=== PATIENT | male | born 1955 | race Caucasian/White ===

== ENCOUNTER 2016-05-25 11:30 | Emergency (ER) | payer MEDICARE, MEDICAID ==
[~2016-05-25] VITALS: Ht 185.4 cm; Wt 99.8 kg
[~2016-05-25 11:30] MED LIST: /LAMO20TA OR; /TIOT18INH INH; AMIT24CA5 PO; ARIC10TA OR; ARIC10TA PO; CALC1TAB30 PO; CLON0.5T PO; CLOR37TA PO; DILA100C PO; FLON0.05; FLUT1SPR2; HYDR25T PO; LAMO200T PO; LAMO25TA2 PO; LOTRCRE TOP; MIRA33504 PO; OYST500T58 OR; PARO30TA PO; PAXI40TA OR; PHEN30CA OR; PHEN32.4 PO; PHENOBARBITOL PO; QUET1TAB10 PO; RISP2TAB12 OR; RISP3TAB16 OR; SENN8.6T10 PO; SERO50TA PO; SIMV20TA2 PO; TRAZ100T4 PO; ZOCO5TAB OR
[2016-05-25 13:00] LABS: BASO % 0.6 % (0.0-1.0); EOS # 0.2 K/mm3 (0.0-0.50); EOS % 4.4 % (0.0-3.0); LARGE UNSTAINED CELL # 0.1 K/mm3 (0.0-0.4); LARGE UNSTAINED CELL % 1.8 % (0.0-4.0); LYMPH # 1.3 K/mm3 (1.5-4.5); LYMPH % 27.6 % (24.0-44.0); MEAN CORPUSCULAR HEMOGLOBIN 29.4 pg (27.0-33.0); MEAN CORPUSCULAR HGB CONC 32.8 g/dl (32.0-36.5); MEAN CORPUSCULAR VOLUME 89.8 fl (80.0-96.0); MONO # 0.4 K/mm3 (0.0-0.8); NEUTROPHILS # 2.8 K/mm3 (1.8-7.7); NEUTROPHILS % 57.7 % (36.0-66.0); PLATELET COUNT, AUTOMATED 162 k/mm3 (150-450); RED CELL DISTRIBUTION WIDTH 13.1 % (11.5-14.5); WHITE BLOOD COUNT 4.8 K/mm3 (4.0-10.0)
[2016-05-25] MEDS ORDERED: DULC10SU2 PR (14:04)
[2016-05-25] MEDS ORDERED: FLEEENE4 PR (14:04)
[2016-05-25] MEDS ORDERED: MILKSUS PO (14:04)
[2016-05-25] MEDS ORDERED: CLOR37TA PO (14:06)
[2016-05-25 14:32] LABS: ANION GAP 10 MEQ/L (8-16); BLOOD UREA NITROGEN 18 MG/DL (7-18); CARBON DIOXIDE LEVEL 27 MEQ/L (21-32); CHLORIDE LEVEL 102 MEQ/L (98-107); CREATININE FOR GFR 0.86 MG/DL (0.70-1.30); GLOMERULAR FILTRATION RATE > 60.0 (>56); GLUCOSE, FASTING 108 MG/DL (70-105); PHENOBARBITAL LEVEL 34.3 UG/ML (15.0-40.0); POTASSIUM SERUM 4.8 MEQ/L (3.5-5.1); SODIUM LEVEL 139 MEQ/L (136-145)
--- NOTE | 2016-05-25 16:41 | EDDOCDS ---
Physician Documentation [facility] Name: Hemanth Hunt Age: 60 yrs Sex: Male : 1955 Arrival Date: 05/25/2016 Time: 11:30 Bed 6 Private MD: Disposition: 05/25/16 16:16 Discharged to Home/Self Care. Impression: Syncope and collapse, Abnormal electrocardiogram [ECG] [EKG], Fracture of clavicle. - Condition is Stable. - Discharge Instructions: Clavicle Fracture, Syncope. - Medication Reconciliation, Local Pharmacy Hours form. - Follow up: Private Physician; When: 1 - 2 days; Reason: Recheck today's complaints. Follow up: [facility]; When: 4 - 5 days; Reason: Recheck today's complaints. - Problem is new. - Symptoms are unchanged. - Notes: Hemnath was seen for falls out of his wheelchair today. Bloodwork showed no acute findings. CT scan of the head, neck and face along with shunt Xrays and chest Xray showed no acute findings, but left shoulder Xray indicated possible left clavicle fracture. He may wear the sling for comfort, and may take Tylenol and/or Ibuprofen as needed for pain. He will need to see Orthopaedics for further evaluation this week - please see the number below, and call to make him an appointment. EKG of the heart initially showed some abnormalilities but this had resolved on recheck. He was seen by Dr. Estes of Internal Medicine who recommended he may return home. As he is feeling better he may return home. Call his primary doctor to arrange a recheck in the office this week as well, and return to the ED for any return of passing out, new or worse pain, not acting appropriately or any other concerns. Historical: - Allergies: Felbatol (Unknown); - Home Meds: 1. Amitiza 24 mcg oral cap daily 2. Aricept 10 mg Oral tab 1 tab once daily 3. Flonase 50 mcg/actuation Nasal spsn 2 sprays once daily 4. trazodone 200 mg Oral tab 1 tab HS 5. Klonopin 0.25 mg Oral TbDL 1 tab 2 times per day 6. Atarax 25 mg Oral tab 1 tab 4 times per day 7. Seroquel 350 mg Oral tab 1 tab 2 times per day 8. Lamictal 275mg Oral 2 times per day 9. Dilantin 100mg Oral 200 mg nightly 10. Lotrisone Topical 11. clorazepate dipotassium 3.75 mg oral tab 1 tab 2 times per day 12. Paxil 60 mg Oral once daily 13. phenobarbital 64.8 mg Oral tab 1 tab once daily 14. phenobarbital 97.2 mg Oral tab 1 tab HS 15. Calcium + Vitamin D Oral 500 mg three times a day 16. Senokot 8.6 mg Oral tab 2 tabs once daily 17. Dilantin Oral 100 mg daily 18. Zocor 20 mg Oral tab 1 tab once daily 19. Miralax 17 gram/dose Oral powd once daily 20. Dulcolax (bisacodyl) 10 mg Rectal supp - PMHx: COPD; Epilepsy; hydrocephalus; Mild MR; parieto-occipital tumor; pituitary tumor; Sleep Apnea w/ CPAP; - PSHx: Ventricular Shunt; - Social history: Smoking status: Patient states was never smoker of tobacco. No barriers to communication noted, Speaks appropriately for age. - Family history: Not pertinent. - : The pt / caregiver states he / she is not on anticoagulants. Home medication list is obtained from the patient. - Exposure Risk Screening:: None identified. Vital Signs: 05/25 11:44 BP 121 / 77 (auto/); rs3 11:44 Pulse Ox 90% ; rs3 11:48 BP 121 / 77 LA Sitting (auto/reg); Pulse 74; Resp 16; Temp 96.2; Pulse Ox 90% on R/A; jrd Weight 99.79 kg / 220 lbs (R); Height 6 ft. 1 in. (185.42 cm) (R); 12:53 BP 129 / 75 (auto/); rs3 12:54 Pulse 68 MON; Pulse Ox 92% ; rs3 13:08 BP 136 / 64 (auto/); rs3 13:09 Pulse 64 MON; rs3 13:23 BP 130 / 75 (auto/); rs3 13:24 Pulse 68 MON; Pulse Ox 93% ; rs3 13:37 Pulse 68 MON; Pulse Ox 92% ; rs3 15:14 BP 129 / 80 (auto/); rs3 15:15 Pulse 66 MON; Pulse Ox 95% ; rs3 15:29 BP 134 / 80 (auto/); rs3 15:30 Pulse 70 MON; Pulse Ox 93% ; rs3 15:44 BP 131 / 78 (auto/); rs3 15:45 Pulse 70 MON; Pulse Ox 92% ; rs3 15:59 BP 136 / 65 (auto/); rs3 16:00 Pulse 68 MON; Pulse Ox 96% ; rs3 16:22 BP 130 / 72; Pulse 72 MON; Resp 18; Temp 97(O); Pulse Ox 94% on R/A; Pain 0/10; rs3 11:48 Body Mass Index 29.03 (99.79 kg, 185.42 cm) jrd 11:48 Patient unable to give pain scale jrd MDM: 12:01 Geological Technician/Pulse Ox/q 30 min VS ordered. br1 12:01 IV Saline Lock ordered. br1 12:01 Rhythm Strip to chart ordered. br1 12:01 Undress patient appropriately for examination ordered. br1 12:02 Shunt Series Ordered. EDMS 12:02 Chest, 2 View (pa\E\lat) Ordered. EDMS 12:02 CT Head Without Contrast Ordered. EDMS 12:02 CT Maxilofacial W/out Contrast Ordered. EDMS 12:02 CT Spine,Cervical W/o Contrast Ordered. EDMS 12:02 Shoulder, Complete Ordered. EDMS 12:03 Basic Metabolic Profile Ordered. EDMS 12:03 CBC with Diff Ordered. EDMS 12:03 Cardiac Injury Profile Ordered. EDMS 12:03 Troponin Ordered. EDMS 12:03 Lamotrigine,Lamictal Ordered. EDMS 12:04 ECG WITH READING ER PHYS+CARDIAG ordered. EDMS 12:38 Financial registration complete. mm15 13:12 CBC with Diff Reviewed. br1 13:15 BED REQUEST+ADM ordered. EDMS 13:17 PHENOBARBITAL LEVEL Ordered. EDMS 13:17 PHENYTOIN Ordered. EDMS 13:22 Sling ordered. br1 14:42 [facility] [place] Payment Agreement was scanned into [employer] and attached to record. mm15 14:47 Basic Metabolic Profile Reviewed. br1 14:47 PHENYTOIN Reviewed. br1 14:47 Cardiac Injury Profile Reviewed. br1 14:47 Troponin Reviewed. br1 14:47 PHENOBARBITAL LEVEL Reviewed. br1 14:58 Repeat EKG (put time details section) ordered. br1 15:01 Repeat EKG (put time details section) complete. deg 15:03 ECG WITH READING ER PHYS ordered. EDMS 16:23 Transition of care: After a detail discussion of the patient's case, care is br1 transferred to the admitting physician, Zainab Estes. 16:23 ED course: After plan to admit patient (see T-sheet), patient has been seen by Dr. summer Estes, who is discharging him from the ED at this time as he feels patient safe for discharge. Patient and his staff are in agreement with plan.. Signatures: Dispatcher [employer] EDYamilet Lopez, Mortuary Operations Manager Unit deg Vinay Ledesma MD MD br1 Elizabeth Starr RN RN rs3 Bushra Levine mm15 The chart was reviewed and I authenticate all verbal orders and agree with the evaluation and treatment provided.Corrections: (The following items were deleted from the chart) 13:19 12:03 PHENYTOIN (DILANTIN)+LAB ordered. EDMS EDMS 13:19 12:03 PHENOBARBITAL LEVEL+LAB ordered. EDMS EDMS Attachments: 14:42 [facility] Payment Agreement mm15 MTDD
--- NOTE | 2016-05-25 16:41 | EDDOCDS ---
Nurse's Notes [facility] Name: Hemanth Hunt Age: 60 yrs Sex: Male : 1955 Arrival Date: 05/25/2016 Time: 11:30 Bed 6 Private MD: Diagnosis: Syncope and collapse;Abnormal electrocardiogram [ECG] [EKG];Fracture of clavicle Presentation: 05/25 11:43 Presenting complaint: EMS states: fell out of the wheelchair and landed on L shoulder. rs3 caregiver got him on transport to go to urgent care, he fell face forward. patient is lethargic/sleepy after the fall. H/o seizure with brain shunt. FSBS 196. Adult Sepsis Screening: The patient does not have new or worsening altered mentation. Patient's respiratory rate is less than 22. Systolic blood pressure is greater than 100. Patient has a qSOFA score of 0- Negative Sepsis Screen. Suicide/Homicide risk assessment- the patient denies having any suicidal and/or homicidal ideations and does not present with any other emotional, behavioral or mental health complaints. Status: Patient is not a service coordinator or dependent. Transition of care: patient was received from [facility]. 11:43 Acuity: LIZ Level 3 rs3 11:43 Method Of Arrival: Ambulance rs3 Triage Assessment: 11:55 General: Appears in no apparent distress. Pain: Unable to use pain scale. [facility] verbally rs3 impaired. HIV screening NA for this visit Offered previously. Musculoskeletal: Parent/caregiver report the patient having Pain is 5 out of 10 on a pain scale. Historical: - Allergies: Felbatol (Unknown); - Home Meds: 1. Amitiza 24 mcg oral cap daily 2. Aricept 10 mg Oral tab 1 tab once daily 3. Flonase 50 mcg/actuation Nasal spsn 2 sprays once daily 4. trazodone 200 mg Oral tab 1 tab HS 5. Klonopin 0.25 mg Oral TbDL 1 tab 2 times per day 6. Atarax 25 mg Oral tab 1 tab 4 times per day 7. Seroquel 350 mg Oral tab 1 tab 2 times per day 8. Lamictal 275mg Oral 2 times per day 9. Dilantin 100mg Oral 200 mg nightly 10. Lotrisone Topical 11. clorazepate dipotassium 3.75 mg oral tab 1 tab 2 times per day 12. Paxil 60 mg Oral once daily 13. phenobarbital 64.8 mg Oral tab 1 tab once daily 14. phenobarbital 97.2 mg Oral tab 1 tab HS 15. Calcium + Vitamin D Oral 500 mg three times a day 16. Senokot 8.6 mg Oral tab 2 tabs once daily 17. Dilantin Oral 100 mg daily 18. Zocor 20 mg Oral tab 1 tab once daily 19. Miralax 17 gram/dose Oral powd once daily 20. Dulcolax (bisacodyl) 10 mg Rectal supp - PMHx: COPD; Epilepsy; hydrocephalus; Mild MR; parieto-occipital tumor; pituitary tumor; Sleep Apnea w/ CPAP; - PSHx: Ventricular Shunt; - Social history: Smoking status: Patient states was never smoker of tobacco. No barriers to communication noted, Speaks appropriately for age. - Family history: Not pertinent. - : The pt / caregiver states he / she is not on anticoagulants. Home medication list is obtained from the patient. - Exposure Risk Screening:: None identified. Screenin:24 Screening information is obtained from residence staff. Fall risk: At risk due to rs3 apparent chemical impairment, apparent cognitive impairment, gait disturbance, prior history of falls. Assistance ADL's: Requires assistance with meal preparation, this assistance is provided by residence staff, bathing, assistance is provided by residence staff, ambulation, assistance is provided by residence staff, housework, assistance is provided by residence staff, medication administration, assistance is provided by residence staff. Abuse/DV Screen: The patient / caregiver reports he/she is: not in a situation that causes fear, pain or injury. Nutritional screening: No deficits noted. Advance Directives: Unable to assess Advance Directive status due to pt condition. home support is adequate. Assessment: 11:30 General: see triage assessment. rs3 12:55 General: Appears in no apparent distress, Behavior is appropriate for age, cooperative. rs3 Pain: Location: left shoulder. Neurological: Level of Consciousness is alert. Cardiovascular: Capillary refill < 3 seconds Heart tones S1 S2 present. Respiratory: Airway is patent Respiratory effort is even, unlabored. Derm: Skin is pink, warm & dry. Musculoskeletal: Circulation, motion, and sensation intact Capillary refill < 3 seconds Range of motion intact in all extremities. Signs and Symptoms of Compartment Syndrome: no signs of compartment syndrome. 13:38 General: Appears in no apparent distress, caregiver at bedside. patient is sleepy. rs3 wakes up easily. L shoulder tenderness present. limited ROM with pain. No erythema/swelling. 14:41 General: Appears in no apparent distress, wants food. attending provider made aware. rs3 boxed lunch given. care coordination manager at bedside. will continue to monitor. . 15:40 General: Appears in no apparent distress, resting comfortable on stretcher. sing rs3 applied to L arm. repeat EKG done. care coordination manager at bedside. No acute distress. 16:38 Reassessment: Patient appears in no apparent distress at this time. Patient denies pain rs3 at this time. Patient states feeling better. Patient states symptoms have improved. Vital Signs: 11:44 BP 121 / 77 (auto/); rs3 11:44 Pulse Ox 90% ; rs3 11:48 BP 121 / 77 LA Sitting (auto/reg); Pulse 74; Resp 16; Temp 96.2; Pulse Ox 90% on R/A; jrd Weight 99.79 kg (R); Height 6 ft. 1 in. (185.42 cm) (R); 12:53 BP 129 / 75 (auto/); rs3 12:54 Pulse 68 MON; Pulse Ox 92% ; rs3 13:08 BP 136 / 64 (auto/); rs3 13:09 Pulse 64 MON; rs3 13:23 BP 130 / 75 (auto/); rs3 13:24 Pulse 68 MON; Pulse Ox 93% ; rs3 13:37 Pulse 68 MON; Pulse Ox 92% ; rs3 15:14 BP 129 / 80 (auto/); rs3 15:15 Pulse 66 MON; Pulse Ox 95% ; rs3 15:29 BP 134 / 80 (auto/); rs3 15:30 Pulse 70 MON; Pulse Ox 93% ; rs3 15:44 BP 131 / 78 (auto/); rs3 15:45 Pulse 70 MON; Pulse Ox 92% ; rs3 15:59 BP 136 / 65 (auto/); rs3 16:00 Pulse 68 MON; Pulse Ox 96% ; rs3 16:22 BP 130 / 72; Pulse 72 MON; Resp 18; Temp 97(O); Pulse Ox 94% on R/A; Pain 0/10; rs3 11:48 Body Mass Index 29.03 (99.79 kg, 185.42 cm) jrd 11:48 Patient unable to give pain scale jrd Vitals: 13:39 Log In Time N/A - ambulance arrival. rs3 ED Course: 11:31 Patient visited by Yamilet Dickey, Tension Machine Operator. deg 11:31 Patient moved to Waiting deg 11:32 Patient moved to 6 deg 11:43 Elizabeth Starr RN is Primary Nurse. rs3 11:48 Triage Initiated rs3 11:49 Vinay Ledesma MD is Attending Physician. br1 11:59 Patient visited by Vinay Ledesma MD. br1 12:39 EKG done. (by ED staff). Reviewed by Vinay Ledesma MD. rn1 12:57 Patient visited by Elizabeth Starr RN. rs3 12:57 Inserted saline lock: 20 gauge in left antecubital area. rs3 13:36 Zainab Estes creative technologist. nq 13:38 Patient visited by Elizabeth Starr RN. rs3 14:27 Patient visited by Elizabeth Starr RN. rs3 14:42 [facility] Payment Agreement was scanned into [employer] and attached to record. mm15 15:06 Zainab Estes creative technologist. nq 15:09 Patient visited by Elizabeth Starr RN. rs3 15:15 EKG done. (by ED staff). Reviewed by Vinay Ledesma MD. jrd 15:38 Patient visited by Doug Mejias PCA. jrd 15:46 Zainab Estes is Hospitalizing Provider. br1 16:18 [facility] is Referral Physician. br1 16:36 Patient visited by Elizabeth Starr RN. rs3 16:39 The patient / caregiver is instructed regarding the plan of care and ED course. rs3 16:39 Discontinued lock bleeding controlled, pressure dressing applied, No redness/swelling rs3 at site. No procedures done that require assistance. Order Results: Lab Order: Basic Metabolic Profile; SPEC'M 05/25/16 13:48 Test: GLUCOSE, FASTING; Value: 108; Range: 70-105; Abnormal: Above high normal; Units: MG/DL; Status: F Test: BLOOD UREA NITROGEN; Value: 18; Range: 7-18; Units: MG/DL; Status: F Test: CREATININE FOR GFR; Value: 0.86; Range: 0.70-1.30; Units: MG/DL; Status: F Test: GLOMERULAR FILTRATION RATE; Value: > 60.0; Range: >56; Status: F Test: SODIUM LEVEL; Value: 139; Range: 136-145; Units: MEQ/L; Status: F Test: POTASSIUM SERUM; Value: 4.8; Range: 3.5-5.1; Units: MEQ/L; Status: F Test: CHLORIDE LEVEL; Value: 102; Range: 98-107; Units: MEQ/L; Status: F Test: CARBON DIOXIDE LEVEL; Value: 27; Range: 21-32; Units: MEQ/L; Status: F Test: ANION GAP; Value: 10; Range: 8-16; Units: MEQ/L; Status: F Test: CALCIUM LEVEL; Value: 9.0; Range: 8.5-10.1; Units: MG/DL; Status: F Test Note: ; Units are mL/min/1.73 m2 Chronic Kidney Disease Staging per NKF: Stage I & II GFR >=60 Normal to Mildly Decreased Stage III GFR 30-59 Moderately Decreased Stage IV GFR 15-29 Severely Decreased Stage V GFR <15 Very Little GFR Left ESRD GFR <15 on CORPORATE TREASURER Lab Order: CBC with Diff; SPEC'M 05/25/16 12:26 Test: WHITE BLOOD COUNT; Value: 4.8; Range: 4.0-10.0; Units: K/mm3; Status: F Test: RED BLOOD COUNT; Value: 4.43; Range: 4.30-6.10; Units: M/mm3; Status: F Test: HEMOGLOBIN; Value: 13.0; Range: 14.0-18.0; Abnormal: Below low normal; Units: g/dl; Status: F Test: HEMATOCRIT; Value: 39.8; Range: 42.0-52.0; Abnormal: Below low normal; Units: %; Status: F Test: MEAN CORPUSCULAR VOLUME; Value: 89.8; Range: 80.0-96.0; Units: fl; Status: F Test: MEAN CORPUSCULAR HEMOGLOBIN; Value: 29.4; Range: 27.0-33.0; Units: pg; Status: F Test: MEAN CORPUSCULAR HGB CONC; Value: 32.8; Range: 32.0-36.5; Units: g/dl; Status: F Test: RED CELL DISTRIBUTION WIDTH; Value: 13.1; Range: 11.5-14.5; Units: %; Status: F Test: PLATELET COUNT, AUTOMATED; Value: 162; Range: 150-450; Units: k/mm3; Status: F Test: NEUTROPHILS %; Value: 57.7; Range: 36.0-66.0; Units: %; Status: F Test: LYMPH %; Value: 27.6; Range: 24.0-44.0; Units: %; Status: F Test: MONO %; Value: 8.0; Range: 0.0-5.0; Abnormal: Above high normal; Units: %; Status: F Test: EOS %; Value: 4.4; Range: 0.0-3.0; Abnormal: Above high normal; Units: %; Status: F Test: BASO %; Value: 0.6; Range: 0.0-1.0; Units: %; Status: F Test: LARGE UNSTAINED CELL %; Value: 1.8; Range: 0.0-4.0; Units: %; Status: F Test: NEUTROPHILS #; Value: 2.8; Range: 1.8-7.7; Units: K/mm3; Status: F Test: LYMPH #; Value: 1.3; Range: 1.5-4.5; Abnormal: Below low normal; Units: K/mm3; Status: F Test: MONO #; Value: 0.4; Range: 0.0-0.8; Units: K/mm3; Status: F Test: EOS #; Value: 0.2; Range: 0.0-0.50; Units: K/mm3; Status: F Test: BASO #; Value: 0.0; Range: 0.0-0.2; Units: K/mm3; Status: F Test: LARGE UNSTAINED CELL #; Value: 0.1; Range: 0.0-0.4; Units: K/mm3; Status: F Lab Order: Cardiac Injury Profile; SPEC'M 05/25/16 13:48 Test: CPK CREATINE PHOSPHOKINASE; Value: 64; Range: 39-308; Units: U/L; Status: F Test: CK-MB VALUE MASS; Value: 1.3; Range: 0.0-3.6; Units: NG/ML; Status: F Test: MB/CK RELATIVE INDEX; Value: 2.03; Range: < OR =4; Status: F Test Note: ; DIAGNOSIS CRITERIA MMB ng/ml Relative Index (RI) NON-AMI < or = 5 N/A BRANDT ZONE > 5 < or = 4 AMI > 5 > 4 Lab Order: Troponin; SPEC'M 05/25/16 13:48 Test: TROPONIN I; Value: < 0.02; Range: < 0.10; Units: NG/ML; Status: F Test Note: ; Troponin I Reference Interval for [email or web address] LOCI: 99th Percentile= 0.00-0.045 ng/ml Risk Stratification: <= 0.10 ng/ml Decreased Risk for Adverse Clinical Events. 0.10-1.50 ng/ml Increased Risk for Adverse Clinical Events. Evaluation of additional criterion and/or repeat testing in 2-6 hours is suggested to rule out myocardial damage. >= 1.50 ng/ml Indicative of Myocardial Injury. Lab Order: PHENOBARBITAL LEVEL; SPEC'M 05/25/16 13:48 Test: PHENOBARBITAL LEVEL; Value: 34.3; Range: 15.0-40.0; Units: UG/ML; Status: F Lab Order: PHENYTOIN; SPEC'M 05/25/16 13:48 Test: PHENYTOIN (DILANTIN); Value: 20.2; Range: 10.0-20.0; Abnormal: Above high normal; Units: UG/ML; Status: F Outcome: 15:46 Decision to Hospitalize by Provider. br1 16:16 Discharge ordered by Provider. br1 16:38 Discharge Assessment: patient administered narcotics - no. The following High Risk rs3 Discharge criteria are identified: None. Discharged to home with caregiver. Condition: stable. Discharge instructions given to director of sales support, Instructed on discharge instructions, follow up and referral plans. medication usage, Demonstrated understanding of instructions, medications, Pt was receptive of discharge instructions/ teaching. CT Study completed. Property :Personal belongings accompany Pt. 16:40 Patient left the ED. rs3 Signatures: Yamilet Dickey, Tension Machine Operator Unit deg Vinay Ledesma MD MD br1 Elizabeth Starr RN RN rs3 Zainab Estes Marlynn mm15 Doug Mejias, PLANE TABLEMAN PLANE TABLEMAN jrd Bart Tamez rn1 MTDD
--- NOTE | 2016-05-26 15:37 | ECGEPIP ---
Stationary ECG Study [facility] - ED Test Date: 2016-05-25 Pat Name: PREM ALMARAZ Department: Room: - Gender: M Individual Small Group Instructor: rn : 1955 Requested By: TOBIAS López Order Number: [id number] Reading MD: Tami Nance Measurements Intervals [place] Rate: 69 P: 26 DE: 185 QRS: 3 QRSD: 100 T: 30 QT: 444 QTc: 477 Interpretive Statements SINUS RHYTHM PROLONGED QT INTERVAL PRWP NSTTW ABNORMALITY PROLONGED QTC COMPARED 11/02/14 Electronically Signed On 05-26-2016 15:37:04 EST by Tami Nance
--- NOTE | 2016-05-26 15:40 | ECGEPIP ---
Stationary ECG Study [facility] - ED Test Date: 2016-05-25 Pat Name: PREM ALMARAZ Department: Room: - Gender: M Store Host: harvey : 1955 Requested By: TOBIAS López Order Number: [id number] Reading MD: Tami Nance Measurements Intervals [place] Rate: 69 P: 40 VA: 189 QRS: 10 QRSD: 96 T: 45 QT: 430 QTc: 463 Interpretive Statements SINUS RHYTHM PROLONGED QTC PRWP LOW [place] NSTTW ABNORMALITY SIMILAR 05/26/16 12:35 Electronically Signed On 05-26-2016 15:40:27 EST by Tami Nance
--- NOTE | 2016-05-26 21:52 | CR ---
DATE OF CONSULTATION: 05/25/2016 REQUESTING PHYSICIAN: Dr. Aranda, emergency room. REASON FOR CONSULTATION: Fall, prolonged QT. HISTORY OF PRESENT ILLNESS: The patient is a 60-year-old man with who is a [facility] ( [facility]) for mild mental retardation (MR), who reportedly had a fall while in his wheelchair in the kitchen. The patient reportedly has falls at least twice per my conversations with Padmini Alejo and Mariana from [facility] staff. The patient has similar falls to this at least twice per week. Usually he drops a spoon and is reaching for it and feel that is what happened today. Padmini Alejo was present during the fall and witnessed it. Once the patient was brought up, he did have significant pain in his left shoulder following the fall. They were attempting to get him into a van and to be seen at urgent care; however, while attempting to do a transfer in the van, the patient was trying to support himself on his left arm and it gave out and he fell forward once again onto a staff member and a fire extinguisher. The patient had no loss of consciousness, no tonic-clonic movements, no palpitations, chest pain, shortness of breath, lightheadedness, dizziness. No nausea or vomiting. No prodromal symptoms whatsoever. In the emergency room, an electrocardiogram (EKG) revealed a QTC of 463, and as such, hospitalist was called for consultation. PAST MEDICAL HISTORY: 1. Chronic obstructive pulmonary disease (COPD). 2. Epilepsy. 3. Hydrocephalus. 4. Brain tumor with removal, ventriculoperitoneal (RN INTEGRITY) shunt placement. 5. Mild mental retardation (MR). 6. Pituitary tumor. 7. Sleep apnea, compliant with continuous positive airway pressure (CPAP). ALLERGIES: SORBITOL. PAST SURGICAL HISTORY: RN INTEGRITY shunt placement. SOCIAL HISTORY: Lives at [facility]. He has baseline cognitive impairment. FAMILY HISTORY: Noncontributory. REVIEW OF SYSTEMS: Negative other than in history of present illness (HPI). HOME MEDICATIONS: - Paxil 50 mg daily - phenobarbital 64.8 every morning, 97.2 at bedtime - Senna daily - dilantin 100 mg every morning - Zocor 20 mg at bedtime - milk of magnesia daily - Flonase as needed - Aricept 10 mg at bedtime - trazodone 200 mg at bedtime - Klonopin 0.25 mg by mouth twice a day - Atarax 25 mg twice a day - Seroquel 350 twice a day - Lamictal 275 twice a day - dilantin 200 at bedtime - Tranxene 375 half tablet twice a day PHYSICAL EXAMINATION: VITAL SIGNS: Blood pressure 121/77, temperature 96.2, respiratory rate 16, pulse 74. Oxygen saturation 92% on room air. GENERAL: He is a jovial, very pleasant, talkative obese man lying in the stretcher at a 60-degree angle. He is in no distress. HEENT: He has trauma around his left eye. No daniele bleeding. No obvious laceration. Mild ecchymosis. He has moist mucous membranes. No elevation of central venous pressure (CVP). CARDIOVASCULAR: S1, S2 regular. RESPIRATORY: Clear. ABDOMEN: Benign. EXTREMITIES: No clubbing, cyanosis or edema. He is very cooperative with exam and he is very pleasant. He is accompanied by staff member who states he is at his baseline. LABORATORY DATA: WBC 4.8, hemoglobin 13, hematocrit 39.8, platelet count is 162. Chemistry panel : Sodium 139, potassium 4.8, chloride 102, bicarbonate 27, BUN 18, creatinine 0.8. A set of cardiac enzymes are negative. IMAGING: The patient did have shunt imaging and shoulder x-ray that revealed the left clavicle. Maxillofacial CT, head CT, chest x-ray, cervical spine CTs were unrevealing for any other fractures or acute changes, as per report from Dr. Aranda. ASSESSMENT AND PLAN: This is a 60-year-old man status post mechanical fall. 1. Mechanical fall, witnessed by staff at [facility] ([facility]) . No prodromal symptoms. No postictal state. The patient does have a history of epilepsy. I do not think that he had a breakthrough seizure. There is nothing to suggest this was. There was initial concern in the emergency room (ER) that the patient has a prolonged QTC and that may be related to his significant medications. He has not had any recent changes in any of his QT prolonging medications. His QTC on arrival was 463. Repeat is 450. Going back through all of his EKGs, they have all ranged between 436 to 450 as far back as 2012. At this time, his QTC is about the same it has been for the last several years. I do not think that this is related to his falls which have been described as mechanical and are actually quite frequent at the [facility] facility secondary to the patient's noncompliance with wheelchair activities as had been guided by their staff. As such, I do not think the patient needs hospitalization at this time for further evaluation of syncope. He is at his baseline functional status with the exception of his left shoulder prescription. 2. Left shoulder fracture. Management as per emergency room staff. They have placed him in a sling. He may require some pain medication. No other changes to medications indicated at this time. Could consider rechecking the EKG in the outpatient setting and if his QTC is at all elevated, could consider adjusting some of his QT-prolonging medications; however, he appears to tolerate these quite well for many years. This plan was discussed with Dr. Aranda in the emergency room. KEE
--- NOTE | 2016-05-27 11:02 | REP ---
CT of the cervical spine: The skull base, C1-C2 are unremarkable except for osteoarthritis. Vertebral body heights and alignment are normal. There is degenerative disc disease at every cervical level. The facets are normally aligned. Prevertebral soft tissues are normal. There are focal lucencies in the C5 and C6 vertebral bodies, nonspecific, bone cyst versus metastases. There are no comparison studies. There are no posterior element fractures. Impression: There is no fracture or listhesis. Is osteoarthritis. There is degenerative disc disease throughout the cervical spine. Signed by Abdelrahman Delaney MD 05/25/2016 12:32 P
--- NOTE | 2016-05-27 11:02 | REP ---
Interventricular shunt series: Four views are performed including AP and lateral skull and AP chest and AP abdomen: The intraventricular for shunt is seen entering the cranium on the right and in extending inferiorly on the right in the subcutaneous tissues along the right lateral margin of the small, neck, and over the right side of the chest and into the abdomen on the right. No kinking or tethering is identified. Signed by Abdelrahman Delaney MD 05/25/2016 01:01 P
--- NOTE | 2016-05-27 11:02 | REP ---
Left shoulder three views: The acromioclavicular joint is widened. There is deformity of the distal clavicle. This could represent acute or old post-traumatic change. Correlation with clinical point tenderness is recommended. The glenohumeral joint is unremarkable. There is no dislocation. Mineralization is normal. There are no foreign bodies. Impression: Acute versus chronic post-traumatic change of the acromioclavicular joint and distal clavicle. Signed by Abdelrahman Delaney MD 05/25/2016 01:12 P
--- NOTE | 2016-05-27 11:02 | REP ---
PA and lateral chest: Comparison is 06/01 2007. There is an incomplete respiratory effort. The lung lofton are clear. Cardiac size is normal. 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 There is chronic wedge-shaped compression deformity of mid-thoracic vertebral bodies, unchanged. Impression: No acute cardiopulmonary findings. Signed by Abdelrahman Delaney MD 05/25/2016 02:38 P
--- NOTE | 2016-05-27 11:02 | REP ---
Maxillofacial CT: There are no comparisons. Axial images are acquired with helical scanning in the reformatted sagittal and coronal projections. There are right frontal and a left parietal craniotomies. There is no nasal bone fracture. No orbit fracture. The ocular lenses and globes are unremarkable. There is no zygoma fracture. There is no mandible fracture. There is opacification of the ethmoid sinus air cells and there is mucosal thickening and air-fluid levels in the maxillary sinuses bilaterally. There is mucosal thickening in the sphenoid sinuses bilaterally. Findings are compatible with pansinusitis. The frontal sinuses are clear. Mastoid air cells are clear. Impression: No facial bone fracture. Pansinusitis. Signed by Abdelrahman Delaney MD 05/25/2016 12:49 P
--- NOTE | 2016-05-27 11:02 | REP ---
CT of the brain without IV contrast: Comparisons 04/09/2016. There is no hemorrhage, edema, mass effect or midline shift. There is a craniotomy in the left posterior parietal zone with adjacent chronic encephalomalacia, unchanged. There appears also have been a right frontal craniotomy. There is an intraventricular shunt entering from the right frontal area with the tip in the body of the right lateral ventricle, unchanged. The ventricles appear moderately dilated but are unchanged. The cortical stripe is unremarkable except in the zone of encephalomalacia posteriorly on the left. Impression: Hydrocephalus with intraventricular shunt as described, unchanged. Postsurgical changes as described. No hemorrhage, acute infarct or mass. No subdural or epidural hematoma. Signed by Abdelrahman Delaney MD 05/25/2016 12:27 P
--- NOTE | 2016-05-27 17:41 | EDDOCDS ---
Physician Documentation [facility] Name: Hemanth Hunt Age: 60 yrs Sex: Male : 1955 Arrival Date: 05/25/2016 Time: 11:30 Bed 6 Private MD: Disposition: 05/25/16 16:16 Discharged to Home/Self Care. Impression: Syncope and collapse, Abnormal electrocardiogram [ECG] [EKG], Fracture of clavicle. - Condition is Stable. - Discharge Instructions: Clavicle Fracture, Syncope. - Medication Reconciliation, Local Pharmacy Hours form. - Follow up: Private Physician; When: 1 - 2 days; Reason: Recheck today's complaints. Follow up: [facility]; When: 4 - 5 days; Reason: Recheck today's complaints. - Problem is new. - Symptoms are unchanged. - Notes: Hemanth was seen for falls out of his wheelchair today. Bloodwork showed no acute findings. CT scan of the head, neck and face along with shunt Xrays and chest Xray showed no acute findings, but left shoulder Xray indicated possible left clavicle fracture. He may wear the sling for comfort, and may take Tylenol and/or Ibuprofen as needed for pain. He will need to see Orthopaedics for further evaluation this week - please see the number below, and call to make him an appointment. EKG of the heart initially showed some abnormalilities but this had resolved on recheck. He was seen by Dr. Estes of Internal Medicine who recommended he may return home. As he is feeling better he may return home. Call his primary doctor to arrange a recheck in the office this week as well, and return to the ED for any return of passing out, new or worse pain, not acting appropriately or any other concerns. Historical: - Allergies: Felbatol (Unknown); - Home Meds: 1. Amitiza 24 mcg oral cap daily 2. Aricept 10 mg Oral tab 1 tab once daily 3. Flonase 50 mcg/actuation Nasal spsn 2 sprays once daily 4. trazodone 200 mg Oral tab 1 tab HS 5. Klonopin 0.25 mg Oral TbDL 1 tab 2 times per day 6. Atarax 25 mg Oral tab 1 tab 4 times per day 7. Seroquel 350 mg Oral tab 1 tab 2 times per day 8. Lamictal 275mg Oral 2 times per day 9. Dilantin 100mg Oral 200 mg nightly 10. Lotrisone Topical 11. clorazepate dipotassium 3.75 mg oral tab 1 tab 2 times per day 12. Paxil 60 mg Oral once daily 13. phenobarbital 64.8 mg Oral tab 1 tab once daily 14. phenobarbital 97.2 mg Oral tab 1 tab HS 15. Calcium + Vitamin D Oral 500 mg three times a day 16. Senokot 8.6 mg Oral tab 2 tabs once daily 17. Dilantin Oral 100 mg daily 18. Zocor 20 mg Oral tab 1 tab once daily 19. Miralax 17 gram/dose Oral powd once daily 20. Dulcolax (bisacodyl) 10 mg Rectal supp - PMHx: COPD; Epilepsy; hydrocephalus; Mild MR; parieto-occipital tumor; pituitary tumor; Sleep Apnea w/ CPAP; - PSHx: Ventricular Shunt; - Social history: Smoking status: Patient states was never smoker of tobacco. No barriers to communication noted, Speaks appropriately for age. - Family history: Not pertinent. - : The pt / caregiver states he / she is not on anticoagulants. Home medication list is obtained from the patient. - Exposure Risk Screening:: None identified. Vital Signs: 05/25 11:44 BP 121 / 77 (auto/); rs3 11:44 Pulse Ox 90% ; rs3 11:48 BP 121 / 77 LA Sitting (auto/reg); Pulse 74; Resp 16; Temp 96.2; Pulse Ox 90% on R/A; jrd Weight 99.79 kg / 220 lbs (R); Height 6 ft. 1 in. (185.42 cm) (R); 12:53 BP 129 / 75 (auto/); rs3 12:54 Pulse 68 MON; Pulse Ox 92% ; rs3 13:08 BP 136 / 64 (auto/); rs3 13:09 Pulse 64 MON; rs3 13:23 BP 130 / 75 (auto/); rs3 13:24 Pulse 68 MON; Pulse Ox 93% ; rs3 13:37 Pulse 68 MON; Pulse Ox 92% ; rs3 15:14 BP 129 / 80 (auto/); rs3 15:15 Pulse 66 MON; Pulse Ox 95% ; rs3 15:29 BP 134 / 80 (auto/); rs3 15:30 Pulse 70 MON; Pulse Ox 93% ; rs3 15:44 BP 131 / 78 (auto/); rs3 15:45 Pulse 70 MON; Pulse Ox 92% ; rs3 15:59 BP 136 / 65 (auto/); rs3 16:00 Pulse 68 MON; Pulse Ox 96% ; rs3 16:22 BP 130 / 72; Pulse 72 MON; Resp 18; Temp 97(O); Pulse Ox 94% on R/A; Pain 0/10; rs3 11:48 Body Mass Index 29.03 (99.79 kg, 185.42 cm) jrd 11:48 Patient unable to give pain scale jrd MDM: 12:01 Cnc Manufacturing Engineer/Pulse Ox/q 30 min VS ordered. br1 12:01 IV Saline Lock ordered. br1 12:01 Rhythm Strip to chart ordered. br1 12:01 Undress patient appropriately for examination ordered. br1 12:02 Shunt Series Ordered. EDMS 12:02 Chest, 2 View (pa\E\lat) Ordered. EDMS 12:02 CT Head Without Contrast Ordered. EDMS 12:02 CT Maxilofacial W/out Contrast Ordered. EDMS 12:02 CT Spine,Cervical W/o Contrast Ordered. EDMS 12:02 Shoulder, Complete Ordered. EDMS 12:03 Basic Metabolic Profile Ordered. EDMS 12:03 CBC with Diff Ordered. EDMS 12:03 Cardiac Injury Profile Ordered. EDMS 12:03 Troponin Ordered. EDMS 12:03 Lamotrigine,Lamictal Ordered. EDMS 12:04 ECG WITH READING ER PHYS+CARDIAG ordered. EDMS 12:38 Financial registration complete. mm15 13:12 CBC with Diff Reviewed. br1 13:15 BED REQUEST+ADM ordered. EDMS 13:17 PHENOBARBITAL LEVEL Ordered. EDMS 13:17 PHENYTOIN Ordered. EDMS 13:22 Sling ordered. br1 14:42 [facility] [place] Agreement was scanned into [employer] and attached to record. mm15 14:47 Basic Metabolic Profile Reviewed. br1 14:47 PHENYTOIN Reviewed. br1 14:47 Cardiac Injury Profile Reviewed. br1 14:47 Troponin Reviewed. br1 14:47 PHENOBARBITAL LEVEL Reviewed. br1 14:58 Repeat EKG (put time details section) ordered. br1 15:01 Repeat EKG (put time details section) complete. deg 15:03 ECG WITH READING ER PHYS ordered. EDMS 16:23 Transition of care: After a detail discussion of the patient's case, care is br1 transferred to the admitting physician, Zainab Estes. 16:23 ED course: After plan to admit patient (see T-sheet), patient has been seen by Dr. summer Estes, who is discharging him from the ED at this time as he feels patient safe for discharge. Patient and his staff are in agreement with plan.. 17:28 T-Sheet-- Draft Copy was scanned into [employer] and attached to record. [facility] 05/26 20:03 ECG/EKG was scanned into [id number] and attached to record. kf3 Signatures: Dispatcher [employer] EDMS Yamilet Dickey, Stock Digger Unit deg Ernesto Reece, Reg Reg kf3 Vinay Ledesma MD MD br1 Elizabeth Starr RN RN rs3 Bushra Levine mm15 Martine Haines The chart was reviewed and I authenticate all verbal orders and agree with the evaluation and treatment provided.Corrections: (The following items were deleted from the chart) 05/25 13:19 12:03 PHENYTOIN (DILANTIN)+LAB ordered. EDMS EDMS 13:19 12:03 PHENOBARBITAL LEVEL+LAB ordered. EDMS EDMS Attachments: 14:42 [facility] Payment Agreement [id number] 17:28 T-Sheet-- Draft Copy [facility] 05/26 20:03 ECG/EKG kf3 Chart Complete MTDD
--- NOTE | 2016-05-27 17:41 | EDDOCDS ---
Nurse's Notes [facility] Name: Hemanth Hunt Age: 60 yrs Sex: Male : 1955 Arrival Date: 05/25/2016 Time: 11:30 Bed 6 Private MD: Diagnosis: Syncope and collapse;Abnormal electrocardiogram [ECG] [EKG];Fracture of clavicle Presentation: 05/25 11:43 Presenting complaint: EMS states: fell out of the wheelchair and landed on L shoulder. rs3 caregiver got him on transport to go to urgent care, he fell face forward. patient is lethargic/sleepy after the fall. H/o seizure with brain shunt. FSBS 196. Adult Sepsis Screening: The patient does not have new or worsening altered mentation. Patient's respiratory rate is less than 22. Systolic blood pressure is greater than 100. Patient has a qSOFA score of 0- Negative Sepsis Screen. Suicide/Homicide risk assessment- the patient denies having any suicidal and/or homicidal ideations and does not present with any other emotional, behavioral or mental health complaints. Status: Patient is not a customer service leader or dependent. Transition of care: patient was received from [facility]. 11:43 Acuity: LIZ Level 3 rs3 11:43 Method Of Arrival: Ambulance rs3 Triage Assessment: 11:55 General: Appears in no apparent distress. Pain: Unable to use pain scale. [facility] verbally rs3 impaired. HIV screening NA for this visit Offered previously. Musculoskeletal: Parent/caregiver report the patient having Pain is 5 out of 10 on a pain scale. Historical: - Allergies: Felbatol (Unknown); - Home Meds: 1. Amitiza 24 mcg oral cap daily 2. Aricept 10 mg Oral tab 1 tab once daily 3. Flonase 50 mcg/actuation Nasal spsn 2 sprays once daily 4. trazodone 200 mg Oral tab 1 tab HS 5. Klonopin 0.25 mg Oral TbDL 1 tab 2 times per day 6. Atarax 25 mg Oral tab 1 tab 4 times per day 7. Seroquel 350 mg Oral tab 1 tab 2 times per day 8. Lamictal 275mg Oral 2 times per day 9. Dilantin 100mg Oral 200 mg nightly 10. Lotrisone Topical 11. clorazepate dipotassium 3.75 mg oral tab 1 tab 2 times per day 12. Paxil 60 mg Oral once daily 13. phenobarbital 64.8 mg Oral tab 1 tab once daily 14. phenobarbital 97.2 mg Oral tab 1 tab HS 15. Calcium + Vitamin D Oral 500 mg three times a day 16. Senokot 8.6 mg Oral tab 2 tabs once daily 17. Dilantin Oral 100 mg daily 18. Zocor 20 mg Oral tab 1 tab once daily 19. Miralax 17 gram/dose Oral powd once daily 20. Dulcolax (bisacodyl) 10 mg Rectal supp - PMHx: COPD; Epilepsy; hydrocephalus; Mild MR; parieto-occipital tumor; pituitary tumor; Sleep Apnea w/ CPAP; - PSHx: Ventricular Shunt; - Social history: Smoking status: Patient states was never smoker of tobacco. No barriers to communication noted, Speaks appropriately for age. - Family history: Not pertinent. - : The pt / caregiver states he / she is not on anticoagulants. Home medication list is obtained from the patient. - Exposure Risk Screening:: None identified. Screenin:24 Screening information is obtained from residence staff. Fall risk: At risk due to rs3 apparent chemical impairment, apparent cognitive impairment, gait disturbance, prior history of falls. Assistance ADL's: Requires assistance with meal preparation, this assistance is provided by residence staff, bathing, assistance is provided by residence staff, ambulation, assistance is provided by residence staff, housework, assistance is provided by residence staff, medication administration, assistance is provided by residence staff. Abuse/DV Screen: The patient / caregiver reports he/she is: not in a situation that causes fear, pain or injury. Nutritional screening: No deficits noted. Advance Directives: Unable to assess Advance Directive status due to pt condition. home support is adequate. Assessment: 11:30 General: see triage assessment. rs3 12:55 General: Appears in no apparent distress, Behavior is appropriate for age, cooperative. rs3 Pain: Location: left shoulder. Neurological: Level of Consciousness is alert. Cardiovascular: Capillary refill < 3 seconds Heart tones S1 S2 present. Respiratory: Airway is patent Respiratory effort is even, unlabored. Derm: Skin is pink, warm & dry. Musculoskeletal: Circulation, motion, and sensation intact Capillary refill < 3 seconds Range of motion intact in all extremities. Signs and Symptoms of Compartment Syndrome: no signs of compartment syndrome. 13:38 General: Appears in no apparent distress, caregiver at bedside. patient is sleepy. rs3 wakes up easily. L shoulder tenderness present. limited ROM with pain. No erythema/swelling. 14:41 General: Appears in no apparent distress, wants food. attending provider made aware. rs3 boxed lunch given. healthcare customer service at bedside. will continue to monitor. . 15:40 General: Appears in no apparent distress, resting comfortable on stretcher. sing rs3 applied to L arm. repeat EKG done. healthcare customer service at bedside. No acute distress. 16:38 Reassessment: Patient appears in no apparent distress at this time. Patient denies pain rs3 at this time. Patient states feeling better. Patient states symptoms have improved. Vital Signs: 11:44 BP 121 / 77 (auto/); rs3 11:44 Pulse Ox 90% ; rs3 11:48 BP 121 / 77 LA Sitting (auto/reg); Pulse 74; Resp 16; Temp 96.2; Pulse Ox 90% on R/A; jrd Weight 99.79 kg (R); Height 6 ft. 1 in. (185.42 cm) (R); 12:53 BP 129 / 75 (auto/); rs3 12:54 Pulse 68 MON; Pulse Ox 92% ; rs3 13:08 BP 136 / 64 (auto/); rs3 13:09 Pulse 64 MON; rs3 13:23 BP 130 / 75 (auto/); rs3 13:24 Pulse 68 MON; Pulse Ox 93% ; rs3 13:37 Pulse 68 MON; Pulse Ox 92% ; rs3 15:14 BP 129 / 80 (auto/); rs3 15:15 Pulse 66 MON; Pulse Ox 95% ; rs3 15:29 BP 134 / 80 (auto/); rs3 15:30 Pulse 70 MON; Pulse Ox 93% ; rs3 15:44 BP 131 / 78 (auto/); rs3 15:45 Pulse 70 MON; Pulse Ox 92% ; rs3 15:59 BP 136 / 65 (auto/); rs3 16:00 Pulse 68 MON; Pulse Ox 96% ; rs3 16:22 BP 130 / 72; Pulse 72 MON; Resp 18; Temp 97(O); Pulse Ox 94% on R/A; Pain 0/10; rs3 11:48 Body Mass Index 29.03 (99.79 kg, 185.42 cm) jrd 11:48 Patient unable to give pain scale jrd Vitals: 13:39 Log In Time N/A - ambulance arrival. rs3 ED Course: 11:31 Patient visited by Yamilet Dickey, Importer Exporter. deg 11:31 Patient moved to Waiting deg 11:32 Patient moved to 6 deg 11:43 Elizabeth Starr,MELANI is Primary Nurse. rs3 11:48 Triage Initiated rs3 11:49 Tobias Ledesma MD is Attending Physician. br1 11:59 Patient visited by Tobias Ledesma MD. br1 12:39 EKG done. (by ED staff). Reviewed by Tobias Ledesma MD. rn1 12:57 Patient visited by Elizabeth Starr RN. rs3 12:57 Inserted saline lock: 20 gauge in left antecubital area. rs3 13:36 Zainab Estes psychological operations specialist. nq 13:38 Patient visited by Elizabeth Starr RN. rs3 14:27 Patient visited by Elizabeth Starr RN. rs3 14:42 [facility] Payment Agreement was scanned into [employer] and attached to record. mm15 15:06 Zainab Estes psychological operations specialist. nq 15:09 Patient visited by Elizabeth Starr RN. rs3 15:15 EKG done. (by ED staff). Reviewed by Tobias Ledesma MD. jrd 15:38 Patient visited by Doug Mejias PCA. jrd 15:46 Zainab Estes is Hospitalizing Provider. br1 16:18 [facility] is Referral Physician. br1 16:36 Patient visited by Elizabeth Starr RN. rs3 16:39 The patient / caregiver is instructed regarding the plan of care and ED course. rs3 16:39 Discontinued lock bleeding controlled, pressure dressing applied, No redness/swelling rs3 at site. No procedures done that require assistance. 17:28 T-Sheet-- Draft Copy was scanned into [employer] and attached to record. klr 05/26 16:03 EKG-ADULT Returned. EDMS 16:03 ECG WITH READING ER PHYS Returned. EDMS 20:03 ECG/EKG was scanned into [employer] and attached to record. kf3 05/27 11:18 CT Head Without Contrast Returned. EDMS 11:18 CT Spine,Cervical W/o Contrast Returned. EDMS 11:18 CT Maxilofacial W/out Contrast Returned. EDMS 11:18 Shunt Series Returned. EDMS 11:18 Shoulder, Complete Returned. EDMS 11:18 Chest, 2 View (pa\E\lat) Returned. EDMS Order Results: Lab Order: Basic Metabolic Profile; SPEC'M 05/25/16 13:48 Test: GLUCOSE, FASTING; Value: 108; Range: 70-105; Abnormal: Above high normal; Units: MG/DL; Status: F Test: BLOOD UREA NITROGEN; Value: 18; Range: 7-18; Units: MG/DL; Status: F Test: CREATININE FOR GFR; Value: 0.86; Range: 0.70-1.30; Units: MG/DL; Status: F Test: GLOMERULAR FILTRATION RATE; Value: > 60.0; Range: >56; Status: F Test: SODIUM LEVEL; Value: 139; Range: 136-145; Units: MEQ/L; Status: F Test: POTASSIUM SERUM; Value: 4.8; Range: 3.5-5.1; Units: MEQ/L; Status: F Test: CHLORIDE LEVEL; Value: 102; Range: 98-107; Units: MEQ/L; Status: F Test: CARBON DIOXIDE LEVEL; Value: 27; Range: 21-32; Units: MEQ/L; Status: F Test: ANION GAP; Value: 10; Range: 8-16; Units: MEQ/L; Status: F Test: CALCIUM LEVEL; Value: 9.0; Range: 8.5-10.1; Units: MG/DL; Status: F Test Note: ; Units are mL/min/1.73 m2 Chronic Kidney Disease Staging per NKF: Stage I & II GFR >=60 Normal to Mildly Decreased Stage III GFR 30-59 Moderately Decreased Stage IV GFR 15-29 Severely Decreased Stage V GFR <15 Very Little GFR Left ESRD GFR <15 on PLANT CARE WORKER Lab Order: CBC with Diff; SPEC'M 05/25/16 12:26 Test: WHITE BLOOD COUNT; Value: 4.8; Range: 4.0-10.0; Units: K/mm3; Status: F Test: RED BLOOD COUNT; Value: 4.43; Range: 4.30-6.10; Units: M/mm3; Status: F Test: HEMOGLOBIN; Value: 13.0; Range: 14.0-18.0; Abnormal: Below low normal; Units: g/dl; Status: F Test: HEMATOCRIT; Value: 39.8; Range: 42.0-52.0; Abnormal: Below low normal; Units: %; Status: F Test: MEAN CORPUSCULAR VOLUME; Value: 89.8; Range: 80.0-96.0; Units: fl; Status: F Test: MEAN CORPUSCULAR HEMOGLOBIN; Value: 29.4; Range: 27.0-33.0; Units: pg; Status: F Test: MEAN CORPUSCULAR HGB CONC; Value: 32.8; Range: 32.0-36.5; Units: g/dl; Status: F Test: RED CELL DISTRIBUTION WIDTH; Value: 13.1; Range: 11.5-14.5; Units: %; Status: F Test: PLATELET COUNT, AUTOMATED; Value: 162; Range: 150-450; Units: k/mm3; Status: F Test: NEUTROPHILS %; Value: 57.7; Range: 36.0-66.0; Units: %; Status: F Test: LYMPH %; Value: 27.6; Range: 24.0-44.0; Units: %; Status: F Test: MONO %; Value: 8.0; Range: 0.0-5.0; Abnormal: Above high normal; Units: %; Status: F Test: EOS %; Value: 4.4; Range: 0.0-3.0; Abnormal: Above high normal; Units: %; Status: F Test: BASO %; Value: 0.6; Range: 0.0-1.0; Units: %; Status: F Test: LARGE UNSTAINED CELL %; Value: 1.8; Range: 0.0-4.0; Units: %; Status: F Test: NEUTROPHILS #; Value: 2.8; Range: 1.8-7.7; Units: K/mm3; Status: F Test: LYMPH #; Value: 1.3; Range: 1.5-4.5; Abnormal: Below low normal; Units: K/mm3; Status: F Test: MONO #; Value: 0.4; Range: 0.0-0.8; Units: K/mm3; Status: F Test: EOS #; Value: 0.2; Range: 0.0-0.50; Units: K/mm3; Status: F Test: BASO #; Value: 0.0; Range: 0.0-0.2; Units: K/mm3; Status: F Test: LARGE UNSTAINED CELL #; Value: 0.1; Range: 0.0-0.4; Units: K/mm3; Status: F Lab Order: Cardiac Injury Profile; SPEC05/25/16 13:48 Test: CPK CREATINE PHOSPHOKINASE; Value: 64; Range: 39-308; Units: U/L; Status: F Test: CK-MB VALUE MASS; Value: 1.3; Range: 0.0-3.6; Units: NG/ML; Status: F Test: MB/CK RELATIVE INDEX; Value: 2.03; Range: < OR =4; Status: F Test Note: ; DIAGNOSIS CRITERIA MMB ng/ml Relative Index (RI) NON-AMI < or = 5 N/A BRANDT ZONE > 5 < or = 4 AMI > 5 > 4 Lab Order: Troponin; 05/25/16 13:48 Test: TROPONIN I; Value: < 0.02; Range: < 0.10; Units: NG/ML; Status: F Test Note: ; Troponin I Reference Interval for [employer] LOCI: 99th Percentile= 0.00-0.045 ng/ml Risk Stratification: <= 0.10 ng/ml Decreased Risk for Adverse Clinical Events. 0.10-1.50 ng/ml Increased Risk for Adverse Clinical Events. Evaluation of additional criterion and/or repeat testing in 2-6 hours is suggested to rule out myocardial damage. >= 1.50 ng/ml Indicative of Myocardial Injury. Lab Order: PHENOBARBITAL LEVEL; SPEC05/25/16 13:48 Test: PHENOBARBITAL LEVEL; Value: 34.3; Range: 15.0-40.0; Units: UG/ML; Status: F Lab Order: PHENYTOIN; 05/25/16 13:48 Test: PHENYTOIN (DILANTIN); Value: 20.2; Range: 10.0-20.0; Abnormal: Above high normal; Units: UG/ML; Status: F Radiology Order: CT Head Without Contrast Test: CT Head Without Contrast REASON FOR EXAMINATION: Trauma; CT of the brain without IV contrast:; ; Comparisons 04/09/2016.; ; There is no hemorrhage, edema, mass effect or midline shift.; ; There is a craniotomy in the left posterior parietal zone with adjacent chronic; encephalomalacia, unchanged. There appears also have been a right frontal; craniotomy.; ; There is an intraventricular shunt entering from the right frontal area with the; tip in the body of the right lateral ventricle, unchanged. The ventricles appear; moderately dilated but are unchanged.; ; ; ; The cortical stripe is unremarkable except in the zone of encephalomalacia; posteriorly on the left.; ; Impression:; ; Hydrocephalus with intraventricular shunt as described, unchanged. Postsurgical; changes as described.; ; No hemorrhage, acute infarct or mass. No subdural or epidural hematoma.; ; ; Signed by; Abdelrahman Delaney MD 05/25/2016 12:27 P; Radiology Order: CT Maxilofacial W/out Contrast Test: CT Maxilofacial W/out Contrast REASON FOR EXAMINATION: Trauma; Maxillofacial CT:; ; There are no comparisons.; ; Axial images are acquired with helical scanning in the reformatted sagittal and; coronal projections.; ; There are right frontal and a left parietal craniotomies.; ; There is no nasal bone fracture. No orbit fracture. The ocular lenses and; globes are unremarkable. There is no zygoma fracture. There is no mandible; fracture.; ; There is opacification of the ethmoid sinus air cells and there is mucosal; thickening and air-fluid levels in the maxillary sinuses bilaterally. There is; mucosal thickening in the sphenoid sinuses bilaterally. Findings are compatible; with pansinusitis. The frontal sinuses are clear.; ; Mastoid air cells are clear.; ; Impression:; ; No facial bone fracture.; ; Pansinusitis.; ; ; Signed by; Abdelrahman Delaney MD 05/25/2016 12:49 P; Radiology Order: CT Spine,Cervical W/o Contrast Test: CT Spine,Cervical W/o Contrast REASON FOR EXAMINATION: Trauma; CT of the cervical spine:; ; The skull base, C1-C2 are unremarkable except for osteoarthritis.; ; Vertebral body heights and alignment are normal. There is degenerative disc; disease at every cervical level. The facets are normally aligned. Prevertebral; soft tissues are normal.; ; There are focal lucencies in the C5 and C6 vertebral bodies, nonspecific, bone; cyst versus metastases. There are no comparison studies. There are no posterior; element fractures.; ; Impression:; ; There is no fracture or listhesis. Is osteoarthritis. There is degenerative; disc disease throughout the cervical spine.; ; ; Signed by; Abdelrahman Delaney MD 05/25/2016 12:32 P; Radiology Order: Shunt Series Test: Shunt Series REASON FOR EXAMINATION: Trauma; Interventricular shunt series:; ; Four views are performed including AP and lateral skull and AP chest and AP; abdomen:; ; The intraventricular for shunt is seen entering the cranium on the right and in; extending inferiorly on the right in the subcutaneous tissues along the right; lateral margin of the small, neck, and over the right side of the chest and into; the abdomen on the right.; ; No kinking or tethering is identified.; ; ; Signed by; Abdelrahman Delaney MD 05/25/2016 01:01 P; Radiology Order: Chest, 2 View (pa\E\lat) Test: Chest, 2 View (pa\E\lat) REASON FOR EXAMINATION: Trauma; PA and lateral chest:; ; Comparison is 06/01 2007.; ; There is an incomplete respiratory effort. The lung lofton are clear. Cardiac; size is normal.; ; PEDIATRICIAN MANAGING PARTNER shunt is seen superimposed over the right hemithorax, unchanged.; ; There is chronic wedge-shaped compression deformity of mid-thoracic vertebral; bodies, unchanged.; ; Impression:; ; No acute cardiopulmonary findings.; ; ; Signed by; Abdelrahman Delaney MD 05/25/2016 02:38 P; Radiology Order: Shoulder, Complete Test: Shoulder, Complete REASON FOR EXAMINATION: Trauma; Left shoulder three views:; ; The acromioclavicular joint is widened. There is deformity of the distal; clavicle. This could represent acute or old post-traumatic change. Correlation; with clinical point tenderness is recommended.; ; The glenohumeral joint is unremarkable. There is no dislocation. Mineralization; is normal. There are no foreign bodies.; ; Impression:; ; Acute versus chronic post-traumatic change of the acromioclavicular joint and; distal clavicle.; ; ; Signed by; Abdelrahman Delaney MD 05/25/2016 01:12 P; Radiology Order: EKG-ADULT Test: EKG-ADULT REASON FOR EXAMINATION: dysrhythmia; Stationary ECG Study; [facility]; ; Test Date: 2016-05-25; Pat Name: [facility] Department:; Room: -; Gender: M Trauma Program Manager: rn; : 1955 Requested By: TOBIAS López; Order Number: [id number] Reading MD: Tami Nance; Measurements; Intervals [place]; Rate: 69 P: 26; OH: 185 QRS: 3; QRSD: 100 T: 30; QT: 444; QTc: 477; Interpretive Statements; SINUS RHYTHM; PROLONGED QT INTERVAL; PRWP; NSTTW ABNORMALITY; PROLONGED QTC COMPARED 11/02/14; Electronically Signed On 05-26-2016 15:37:04 EST by Tami Nance; Radiology Order: ECG WITH READING ER PHYS Test: ECG WITH READING ER PHYS REASON FOR EXAMINATION: CHEST PAIN; Stationary ECG Study; [facility]; ; Test Date: 2016-05-25; Pat Name: [facility] Department:; Room: -; Gender: M Trauma Program Manager: harvey; : 1955 Requested By: TOBIAS López; Order Number: [id number] Reading : Tami Nance; Measurements; Intervals [place]; Rate: 69 P: 40; [place]: 189 QRS: 10; QRSD: 96 T: 45; QT: 430; QTc: 463; Interpretive Statements; SINUS RHYTHM; PROLONGED QTC; PRWP; LOW VOLTAGE LIMB; NSTTW ABNORMALITY; SIMILAR 05/26/16 12:35; Electronically Signed On 05-26-2016 15:40:27 EST by Tami Nance; Outcome: 05/25 15:46 Decision to Hospitalize by Provider. br1 16:16 Discharge ordered by Provider. br1 16:38 Discharge Assessment: patient administered narcotics - no. The following High Risk rs3 Discharge criteria are identified: None. Discharged to home with caregiver. Condition: stable. Discharge instructions given to lawn caretaker, Instructed on discharge instructions, follow up and referral plans. medication usage, Demonstrated understanding of instructions, medications, Pt was receptive of discharge instructions/ teaching. CT Study completed. Property :Personal belongings accompany Pt. 16:40 Patient left the ED. rs3 Signatures: Dispatcher [employer] EDMS Yamilet Dickey, Importer Exporter Unit deg Ernesto Reece, Reg Reg kf3 Tobias Ledesma MD MD br1 Elizabeth Starr,MELANI RN rs3 Zainab Estes Marlynn mm15 Doug Mejias, MARK SUBSURFACE AUGMENTEE ELINT OPERATOR Bart Posadas rn1 Martine Haines Chart Complete KEE
--- NOTE | 2016-05-27 17:41 | EDDOCDS ---
Physician Documentation [facility] Name: Hemanth Hunt Age: 60 yrs Sex: Male : 1955 Arrival Date: 05/25/2016 Time: 11:30 Bed 6 Private MD: Disposition: 05/25/16 16:16 Discharged to Home/Self Care. Impression: Syncope and collapse, Abnormal electrocardiogram [ECG] [EKG], Fracture of clavicle. - Condition is Stable. - Discharge Instructions: Clavicle Fracture, Syncope. - Medication Reconciliation, Local Pharmacy Hours form. - Follow up: Private Physician; When: 1 - 2 days; Reason: Recheck today's complaints. Follow up: [facility]; When: 4 - 5 days; Reason: Recheck today's complaints. - Problem is new. - Symptoms are unchanged. - Notes: Hemanth was seen for falls out of his wheelchair today. Bloodwork showed no acute findings. CT scan of the head, neck and face along with shunt Xrays and chest Xray showed no acute findings, but left shoulder Xray indicated possible left clavicle fracture. He may wear the sling for comfort, and may take Tylenol and/or Ibuprofen as needed for pain. He will need to see Orthopaedics for further evaluation this week - please see the number below, and call to make him an appointment. EKG of the heart initially showed some abnormalilities but this had resolved on recheck. He was seen by Dr. Estes of Internal Medicine who recommended he may return home. As he is feeling better he may return home. Call his primary doctor to arrange a recheck in the office this week as well, and return to the ED for any return of passing out, new or worse pain, not acting appropriately or any other concerns. Historical: - Allergies: Felbatol (Unknown); - Home Meds: 1. Amitiza 24 mcg oral cap daily 2. Aricept 10 mg Oral tab 1 tab once daily 3. Flonase 50 mcg/actuation Nasal spsn 2 sprays once daily 4. trazodone 200 mg Oral tab 1 tab HS 5. Klonopin 0.25 mg Oral TbDL 1 tab 2 times per day 6. Atarax 25 mg Oral tab 1 tab 4 times per day 7. Seroquel 350 mg Oral tab 1 tab 2 times per day 8. Lamictal 275mg Oral 2 times per day 9. Dilantin 100mg Oral 200 mg nightly 10. Lotrisone Topical 11. clorazepate dipotassium 3.75 mg oral tab 1 tab 2 times per day 12. Paxil 60 mg Oral once daily 13. phenobarbital 64.8 mg Oral tab 1 tab once daily 14. phenobarbital 97.2 mg Oral tab 1 tab HS 15. Calcium + Vitamin D Oral 500 mg three times a day 16. Senokot 8.6 mg Oral tab 2 tabs once daily 17. Dilantin Oral 100 mg daily 18. Zocor 20 mg Oral tab 1 tab once daily 19. Miralax 17 gram/dose Oral powd once daily 20. Dulcolax (bisacodyl) 10 mg Rectal supp - PMHx: COPD; Epilepsy; hydrocephalus; Mild MR; parieto-occipital tumor; pituitary tumor; Sleep Apnea w/ CPAP; - PSHx: Ventricular Shunt; - Social history: Smoking status: Patient states was never smoker of tobacco. No barriers to communication noted, Speaks appropriately for age. - Family history: Not pertinent. - : The pt / caregiver states he / she is not on anticoagulants. Home medication list is obtained from the patient. - Exposure Risk Screening:: None identified. Vital Signs: 05/25 11:44 BP 121 / 77 (auto/); rs3 11:44 Pulse Ox 90% ; rs3 11:48 BP 121 / 77 LA Sitting (auto/reg); Pulse 74; Resp 16; Temp 96.2; Pulse Ox 90% on R/A; jrd Weight 99.79 kg / 220 lbs (R); Height 6 ft. 1 in. (185.42 cm) (R); 12:53 BP 129 / 75 (auto/); rs3 12:54 Pulse 68 MON; Pulse Ox 92% ; rs3 13:08 BP 136 / 64 (auto/); rs3 13:09 Pulse 64 MON; rs3 13:23 BP 130 / 75 (auto/); rs3 13:24 Pulse 68 MON; Pulse Ox 93% ; rs3 13:37 Pulse 68 MON; Pulse Ox 92% ; rs3 15:14 BP 129 / 80 (auto/); rs3 15:15 Pulse 66 MON; Pulse Ox 95% ; rs3 15:29 BP 134 / 80 (auto/); rs3 15:30 Pulse 70 MON; Pulse Ox 93% ; rs3 15:44 BP 131 / 78 (auto/); rs3 15:45 Pulse 70 MON; Pulse Ox 92% ; rs3 15:59 BP 136 / 65 (auto/); rs3 16:00 Pulse 68 MON; Pulse Ox 96% ; rs3 16:22 BP 130 / 72; Pulse 72 MON; Resp 18; Temp 97(O); Pulse Ox 94% on R/A; Pain 0/10; rs3 11:48 Body Mass Index 29.03 (99.79 kg, 185.42 cm) jrd 11:48 Patient unable to give pain scale jrd MDM: 12:01 Assistant Research Scientist/Pulse Ox/q 30 min VS ordered. br1 12:01 IV Saline Lock ordered. br1 12:01 Rhythm Strip to chart ordered. br1 12:01 Undress patient appropriately for examination ordered. br1 12:02 Shunt Series Ordered. EDMS 12:02 Chest, 2 View (pa\E\lat) Ordered. EDMS 12:02 CT Head Without Contrast Ordered. EDMS 12:02 CT Maxilofacial W/out Contrast Ordered. EDMS 12:02 CT Spine,Cervical W/o Contrast Ordered. EDMS 12:02 Shoulder, Complete Ordered. EDMS 12:03 Basic Metabolic Profile Ordered. EDMS 12:03 CBC with Diff Ordered. EDMS 12:03 Cardiac Injury Profile Ordered. EDMS 12:03 Troponin Ordered. EDMS 12:03 Lamotrigine,Lamictal Ordered. EDMS 12:04 ECG WITH READING ER PHYS+CARDIAG ordered. EDMS 12:38 Financial registration complete. mm15 13:12 CBC with Diff Reviewed. br1 13:15 BED REQUEST+ADM ordered. EDMS 13:17 PHENOBARBITAL LEVEL Ordered. EDMS 13:17 PHENYTOIN Ordered. EDMS 13:22 Sling ordered. br1 14:42 [facility] Payment Agreement was scanned into [employer] and attached to record. mm15 14:47 Basic Metabolic Profile Reviewed. br1 14:47 PHENYTOIN Reviewed. br1 14:47 Cardiac Injury Profile Reviewed. br1 14:47 Troponin Reviewed. br1 14:47 PHENOBARBITAL LEVEL Reviewed. br1 14:58 Repeat EKG (put time details section) ordered. br1 15:01 Repeat EKG (put time details section) complete. deg 15:03 ECG WITH READING ER PHYS ordered. EDMS 16:23 Transition of care: After a detail discussion of the patient's case, care is br1 transferred to the admitting physician, Zainab Estes. 16:23 ED course: After plan to admit patient (see T-sheet), patient has been seen by Dr. summer Estes, who is discharging him from the ED at this time as he feels patient safe for discharge. Patient and his staff are in agreement with plan.. 17:28 T-Sheet-- Draft Copy was scanned into [employer] and attached to record. [facility] 05/26 20:03 ECG/EKG was scanned into [employer] and attached to record. kf3 Signatures: Dispatcher [employer] EDMS Yamilet Dickey, Director Medicare Sales Unit deg Ernesto Reece, Reg Reg kf3 Vinay Ledesma MD MD br1 Elizabeth Starr RN RN rs3 Bushra Levine mm15 Martine Haines The chart was reviewed and I authenticate all verbal orders and agree with the evaluation and treatment provided.Corrections: (The following items were deleted from the chart) 05/25 13:19 12:03 PHENYTOIN (DILANTIN)+LAB ordered. EDMS EDMS 13:19 12:03 PHENOBARBITAL LEVEL+LAB ordered. EDMS EDMS Attachments: 14:42 [facility] Payment Agreement mm15 17:28 T-Sheet-- Draft Copy [facility] 05/26 20:03 ECG/EKG kf3 Chart Complete MTDD
== END 2016-05-25 16:40 | disposition home or self-care (01) ==
LOC: M ED 11:30
DX: R55 Syncope and collapse (principal); R94.31 Abnormal electrocardiogram [ECG] [EKG]; S42.002A Fracture of unspecified part of left clavicle, initial encounter for closed fracture; W05.0XXA Fall from non-moving wheelchair, initial encounter; Y92.019 Unspecified place in single-family (private) house as the place of occurrence of the external cause; Y93.89 Activity, other specified; Y99.8 Other external cause status; M47.812 Spondylosis without myelopathy or radiculopathy, cervical region; J01.40 Acute pansinusitis, unspecified; F70 Mild intellectual disabilities; G91.9 Hydrocephalus, unspecified; G40.909 Epilepsy, unspecified, not intractable, without status epilepticus; J44.9 Chronic obstructive pulmonary disease, unspecified; G47.30 Sleep apnea, unspecified; E23.7 Disorder of pituitary gland, unspecified; G93.9 Disorder of brain, unspecified; Z98.2 Presence of cerebrospinal fluid drainage device; Z79.02 Long term (current) use of antithrombotics/antiplatelets; Z79.899 Other long term (current) drug therapy; Z88.8 Allergy status to other drugs, medicaments and biological substances

== ENCOUNTER → 2016-07-04 | Outpatient (CLI) | payer MEDICARE, MEDICAID ==
[~2016-07-04] MED LIST changes: +DULC10SU2 PR; +FLEEENE4 PR; +MILKSUS PO
[2016-07-04 10:01] LABS: PHENOBARBITAL LEVEL 33.3 UG/ML (15.0-40.0)
== END ==
LOC: M LAB 08:55
PROVIDERS: ATTEND Physician Assistant Medical
DX: Z51.81 Encounter for therapeutic drug level monitoring (principal); Z79.899 Other long term (current) drug therapy; G40.919 Epilepsy, unspecified, intractable, without status epilepticus

== ENCOUNTER → 2016-07-04 | Outpatient (CLI) | payer MEDICARE, MEDICAID ==
[2016-07-04 09:29] LABS: MEAN CORPUSCULAR HEMOGLOBIN 29.4 pg (27.0-33.0); MEAN CORPUSCULAR HGB CONC 33.3 g/dl (32.0-36.5); MEAN CORPUSCULAR VOLUME 88.3 fl (80.0-96.0); RED CELL DISTRIBUTION WIDTH 13.1 % (11.5-14.5); WHITE BLOOD COUNT 4.8 K/mm3 (4.0-10.0)
[2016-07-04 10:05] LABS: ALBUMIN 3.9 GM/DL (3.2-5.2); ALBUMIN/GLOBULIN RATIO 1.22 (1.00-1.93); ALKALINE PHOSPHATASE 170 U/L (45-117); ALT/SGPT 23 U/L (12-78); ANION GAP 10 MEQ/L (8-16); AST/SGOT 13 U/L (15-37); BILIRUBIN,TOTAL 0.1 MG/DL (0.2-1.0); BLOOD UREA NITROGEN 12 MG/DL (7-18); CALCIUM LEVEL 8.8 MG/DL (8.5-10.1); CARBON DIOXIDE LEVEL 31 MEQ/L (21-32); CHLORIDE LEVEL 98 MEQ/L (98-107); CHOLESTEROL LEVEL 156 MG/DL (<200); CREATININE FOR GFR 0.85 MG/DL (0.70-1.30); GLOMERULAR FILTRATION RATE > 60.0 (>56); GLUCOSE, FASTING 97 MG/DL (70-105); POTASSIUM SERUM 4.4 MEQ/L (3.5-5.1); SODIUM LEVEL 139 MEQ/L (136-145); TOTAL PROTEIN 7.1 GM/DL (6.4-8.2); TRIGLYCERIDES LEVEL 120 MG/DL (<150)
== END ==
LOC: M LAB 08:52
PROVIDERS: ATTEND Nurse Practitioner Family
DX: E78.00 Pure hypercholesterolemia, unspecified (principal); E55.9 Vitamin D deficiency, unspecified; Z51.81 Encounter for therapeutic drug level monitoring; Z79.899 Other long term (current) drug therapy; G40.919 Epilepsy, unspecified, intractable, without status epilepticus

== ENCOUNTER → 2016-08-06 | Outpatient (CLI) | payer MEDICARE, MEDICAID | LOC: M RAD 09:53 | PROVIDERS: ATTEND Specialist | DX: G91.9 Hydrocephalus, unspecified (principal); Z53.29 Procedure and treatment not carried out because of patient's decision for other reasons ==

== ENCOUNTER → 2016-09-18 | Outpatient (REF) | payer MEDICARE, MEDICAID | LOC: M LAB REF 14:00 | PROVIDERS: ATTEND Nurse Practitioner Family | DX: D64.9 Anemia, unspecified (principal); Z79.899 Other long term (current) drug therapy ==

== ENCOUNTER → 2016-12-18 | Outpatient (CLI) | payer MEDICARE, MEDICAID ==
[~2016-12-18] MED LIST changes: -AMIT24CA5 PO; +AMIT24CA7 PO; -ARIC10TA PO; +ARIC1TAB2 PO; +FLOM5CAP PO; +HYDR-3363 PO; -HYDR25T PO; +NORCOTAB PO; -PHEN32.4 PO; +PHEN32.44 PO; +SENN1TAB10 PO; -SENN8.6T10 PO; +TRAZ-136 PO; -TRAZ100T4 PO
[2016-12-18 10:03] LABS: MEAN CORPUSCULAR HEMOGLOBIN 30.2 pg (27.0-33.0); MEAN CORPUSCULAR HGB CONC 33.1 g/dl (32.0-36.5); MEAN CORPUSCULAR VOLUME 91.2 fl (80.0-96.0); RED CELL DISTRIBUTION WIDTH 13.7 % (11.5-14.5)
[2016-12-18 10:29] LABS: ALBUMIN 3.8 GM/DL (3.2-5.2); ALBUMIN/GLOBULIN RATIO 1.23 (1.00-1.93); ALKALINE PHOSPHATASE 158 U/L (45-117); ALT/SGPT 17 U/L (12-78); ANION GAP 7 MEQ/L (8-16); AST/SGOT 10 U/L (15-37); BILIRUBIN,TOTAL 0.2 MG/DL (0.2-1.0); BLOOD UREA NITROGEN 9 MG/DL (7-18); CALCIUM LEVEL 8.1 MG/DL (8.5-10.1); CARBON DIOXIDE LEVEL 29 MEQ/L (21-32); CHLORIDE LEVEL 103 MEQ/L (98-107); CHOLESTEROL LEVEL 139 MG/DL (<200); CREATININE FOR GFR 0.79 MG/DL (0.70-1.30); GLOMERULAR FILTRATION RATE > 60.0 (>56); GLUCOSE, FASTING 105 MG/DL (70-105); POTASSIUM SERUM 4.4 MEQ/L (3.5-5.1); SODIUM LEVEL 139 MEQ/L (136-145); TOTAL PROTEIN 6.9 GM/DL (6.4-8.2); TRIGLYCERIDES LEVEL 130 MG/DL (<150)
== END ==
LOC: M LAB 09:19
PROVIDERS: ATTEND Nurse Practitioner Family
DX: F39 Unspecified mood [affective] disorder (principal); F70 Mild intellectual disabilities; G40.919 Epilepsy, unspecified, intractable, without status epilepticus; G47.30 Sleep apnea, unspecified; Z79.899 Other long term (current) drug therapy

== ENCOUNTER → 2016-12-19 | Outpatient (CLI) | payer MEDICARE, MEDICAID | LOC: M LAB 14:50 | PROVIDERS: ATTEND Physician Assistant Medical | DX: R56.9 Unspecified convulsions (principal) ==

== ENCOUNTER → 2016-12-26 | Outpatient (CLI) | payer MEDICARE, MEDICAID ==
[2016-12-26 11:41] LABS: PHENOBARBITAL LEVEL 41.7 UG/ML (15.0-40.0)
== END ==
LOC: M WUC 08:08
PROVIDERS: ATTEND Physician Assistant Medical
DX: R56.9 Unspecified convulsions (principal)

== ENCOUNTER 2017-01-20 07:17 | Emergency (ER) | payer MEDICARE, MEDICAID ==
[~2017-01-20] VITALS: Ht 177.8 cm; Wt 95.5 kg
[~2017-01-20 07:17] MED LIST changes: -FLOM5CAP PO; -NORCOTAB PO
[2017-01-20] MEDS ORDERED: lamoTRIgine 25 MG TAB PO ONE (08:45)
[2017-01-20] MEDS ORDERED: PHENYTOIN ER 100 MG CAP PO ONE (08:45)
[2017-01-20] MEDS ORDERED: PHENobarbital 30 MG TAB PO ONE (08:45)
[2017-01-20] MEDS ORDERED: lamoTRIgine 100MG TAB PO ONE (08:45)
--- NOTE | 2017-01-20 09:16 | REP ---
CHEST, TWO VIEWS: Two views of the chest are performed and compared to a prior study of 05/25/2016. There is poor ventilation with mild bibasilar atelectatic change appearing similar to the prior exam. There is mild left ventricular prominence. The mediastinal silhouette is unchanged. 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 IMPRESSION: No acute changes. Signed by Abdelrahman Zarate MD 01/20/2017 05:29 P
--- NOTE | 2017-01-20 09:18 | REP ---
THORACIC SPINE: AP and lateral views of the thoracic spine are performed. There is an old moderate compression deformity of the T8 vertebral body. No acute fracture or dislocation is seen. There is mild spurring of multiple mid thoracic vertebral bodies with slight disc space narrowing at all levels. Posterior elements appear intact. IMPRESSION: Old compression deformity T8. No acute fracture or dislocation. Signed by Abdelrahman Zarate MD 01/20/2017 05:29 P
--- NOTE | 2017-01-20 09:19 | REP ---
LUMBOSACRAL SPINE: Five views of the lumbosacral spine are performed. There is no compression fracture or malalignment. There is normal lumbar lordosis. Disc spaces are well preserved. There is sclerosis at the facets at L4-5 and L5-S1. The posterior elements are intact. IMPRESSION: No fracture or dislocation. Signed by Abdelrahman Zarate MD 01/20/2017 05:29 P
--- NOTE | 2017-01-20 09:23 | REP ---
KUB ABDOMEN AND PELVIS: Two KUB films of the abdomen and pelvis are performed. There is moderate fecal material scattered throughout the colon. There is no evidence of bowel obstruction. BAND INSTRUMENT REPAIRER shunt is seen with the distal end coiled in the right upper quadrant. The visualized osseous structures appear intact. IMPRESSION: No acute findings. Signed by Abdelrahman Zarate MD 01/20/2017 05:29 P
--- NOTE | 2017-01-20 10:04 | REP ---
CT HEAD WITHOUT CONTRAST: HISTORY: Trauma. COMPARISON: 05/25/2016. The patient is status post right frontal and left parietal craniotomy. An area of decreased attenuation is present in the posterior left temporal and parietal lobes. There is dilatation of the overlying cortical sulci. This represent gliosis and encephalomalacia. Areas of decreased attenuation are present in the periventricular and subcortical white matter. This represents small vessel ischemic disease. There is no intraparenchymal hemorrhage or midline shift. The ventricular system and cortical sulci as well as subarachnoid space in the posterior fossa are dilated consistent with mild volume loss. There is no extracerebral collection. A pituitary adenoma is 1.6 cm in width is present. This is unchanged compared to the previous study. A shunt is present in the right lateral ventricle. There is no fracture. Mucosal thickening is present in the ethmoid maxillary and sphenoid sinuses. IMPRESSION: 1. Left temporal parietal lobe encephalomalacia. 2. Small vessel ischemic disease. 3. Mild volume loss. 4. A shunt is present in the right lateral ventricle. There is no hydrocephalus. 5. 1.6 cm pituitary adenoma unchanged compared to the previous study. Signed by Brenden Moeller MD 01/20/2017 10:12 A
[2017-01-20] MEDS ORDERED: KETOROLAC 30 MG/ML VIAL (J1885) IV ONE (13:15)
[2017-01-20 13:58] VITALS: BP 126/82
== END 2017-01-20 14:26 | disposition home or self-care (01) ==
LOC: M ED 07:17
DX: S20.229A Contusion of unspecified back wall of thorax, initial encounter (principal); S20.219A Contusion of unspecified front wall of thorax, initial encounter; W01.198A Fall on same level from slipping, tripping and stumbling with subsequent striking against other object, initial encounter; Y92.199 Unspecified place in other specified residential institution as the place of occurrence of the external cause; Y93.89 Activity, other specified; Y99.8 Other external cause status; Z79.51 Long term (current) use of inhaled steroids; Z79.899 Other long term (current) drug therapy; Z88.8 Allergy status to other drugs, medicaments and biological substances
CPT/HCPCS: 70450; 71020; 72072; 72110; 74000; 96374; 99283; J1885

== ENCOUNTER 2017-01-24 16:12 | Emergency (ER) | payer MEDICARE, MEDICAID ==
[~2017-01-24] VITALS: Ht 185.4 cm; Wt 73.2 kg
[~2017-01-24 16:12] MED LIST changes: -FLOM5CAP PO; -NORCOTAB PO
[2017-01-24] MEDS ORDERED: NS 1,000 ML IV ONE (18:30)
[2017-01-24 19:11] LABS: BASO # 0.1 10^3/uL (0.0-0.2); BASO % 1.1 % (0.0-1.0); EOS # 0.4 10^3/uL (0.0-0.50); EOS % 6.4 % (0.0-3.0); IMMATURE GRANULOCYTE % 0.2 % (0-0); LYMPH # 1.8 10^3/uL (1.5-4.5); LYMPH % 31.5 % (24.0-44.0); MEAN CORPUSCULAR HEMOGLOBIN 29.7 pg (27.0-33.0); MONO # 0.6 10^3/uL (0.0-0.8); MONO % 11.3 % (0.0-5.0); NEUTROPHILS # 2.8 10^3/uL (1.8-7.7); NEUTROPHILS % 49.5 % (36.0-66.0); PLATELET COUNT, AUTOMATED 188 10^3/uL (150-450); RED CELL DISTRIBUTION WIDTH 13.3 % (11.5-14.5); WHITE BLOOD COUNT 5.6 10^3/uL (4.0-10.0)
[2017-01-24 19:27] LABS: ANION GAP 6 MEQ/L (8-16); BLOOD UREA NITROGEN 10 MG/DL (7-18); CALCIUM LEVEL 8.4 MG/DL (8.8-10.2); CARBON DIOXIDE LEVEL 28 MEQ/L (21-32); CHLORIDE LEVEL 97 MEQ/L (98-107); CREATININE FOR GFR 0.59 MG/DL (0.70-1.30); GLOMERULAR FILTRATION RATE > 60.0 (>49); GLUCOSE, FASTING 96 MG/DL (80-110); POTASSIUM SERUM 4.7 MEQ/L (3.5-5.1); SODIUM LEVEL 131 MEQ/L (136-145)
[2017-01-24 19:50] LABS: ADD MORPHOLOGY? NO
--- NOTE | 2017-01-24 21:10 | REPUSA ---
CT of the abdomen and pelvis without contrast Clinical statement: urinary retention. Technique: Multiple axial CT images were obtained from the base of the lungs to the floor of the pelv is utilizing 5 mm axial slices without administration of contrast. Coronal and sagittal reconstructio ns were also obtained. No comparison is available. Findings: Chest: The visualized lung bases demonstrate linear atelectasis bilaterally. Abdomen: The kidneys are normal in size bilaterally. There is no evidence of hydronephrosis or nephro lithiasis. There is a small loculated fluid collection lateral to the anterior right hepatic border, measuring approximately 7.9 x 3.4 cm. A surgical drain is seen at the site. The liver, spleen, pancre as, and adrenal glands are unremarkable. The aorta demonstrates normal caliber and contour. There is no abdominal lymphadenopathy or ascites. Pelvis: The bowel is unremarkable, with no obstructive or inflammatory changes. The appendix is ruby l. The urinary bladder is within normal limits. There is no pelvic lymphadenopathy or ascites. The ot her pelvic structures appear unremarkable. Bones: There are no suspicious osseous abnormalities seen. Nonhealed chronic left-sided rib fractures are noted. Impression: 1. The renal collecting systems appear unremarkable. The urinary bladder is within normal limits. 2. No obstructive or inflammatory bowel changes. 3. Small loculated fluid collection lateral to the right hepatic border as described. Surgical draina ge catheter is seen at this site. Follow-up is recommended as clinically indicated.
--- NOTE | 2017-01-24 21:45 | REP ---
UNILATERAL LEFT RIBS, PA CHEST: HISTORY: Trauma. COMPARISON: 01/20/2017 The lungs are clear. The heart is normal in size. The pulmonary vasculature is normal in appearance. There are fractures of the left 10th and 11th ribs. IMPRESSION: Fractures of the left 10th and 11th ribs. Signed by Brenden Moeller MD 01/25/2017 08:13 A
[2017-01-24] MEDS ORDERED: NORCOTAB PO (22:15)
[2017-01-24] MEDS ORDERED: FLOM5CAP PO (22:15)
[2017-01-24] MEDS ORDERED: NORCO, ANEXSIA 5/325MG TABLET (HYDROcodone/ACETAMINOPHEN) PO ONE (22:30)
[2017-01-24 22:54] VITALS: BP 125/65
--- NOTE | 2017-01-25 10:12 | ED PDOC ---
Post-Departure Follow-Up casper leija faxed formal report of ct abd/p for fu Luciana Juarez MD Jan 25, 2017 10:12
== END 2017-01-24 22:56 | disposition home or self-care (01) ==
LOC: M ED 16:12
DX: R33.9 Retention of urine, unspecified (principal); S22.42XA Multiple fractures of ribs, left side, initial encounter for closed fracture; W19.XXXA Unspecified fall, initial encounter; Y92.9 Unspecified place or not applicable; Y93.9 Activity, unspecified; Y99.9 Unspecified external cause status; E53.9 Vitamin B deficiency, unspecified; Z51.81 Encounter for therapeutic drug level monitoring; Z79.899 Other long term (current) drug therapy; R56.9 Unspecified convulsions; Z88.8 Allergy status to other drugs, medicaments and biological substances

== ENCOUNTER → 2017-01-24 | Outpatient (CLI) | payer MEDICARE, MEDICAID ==
[~2017-01-24] MED LIST changes: +FLOM5CAP PO; +NORCOTAB PO
[2017-01-24 11:18] LABS: PHENOBARBITAL LEVEL 30.5 UG/ML (15.0-40.0)
== END ==
LOC: M LAB 09:38
PROVIDERS: ATTEND Physician Assistant Medical
DX: R56.9 Unspecified convulsions (principal); Z51.81 Encounter for therapeutic drug level monitoring; Z79.899 Other long term (current) drug therapy

== ENCOUNTER → 2017-01-24 | Outpatient (CLI) | payer MEDICARE, MEDICAID ==
[2017-01-24 11:24] LABS: ALBUMIN 4.1 GM/DL (3.2-5.2); ALBUMIN/GLOBULIN RATIO 1.24 (1.00-1.93); ALKALINE PHOSPHATASE 195 U/L (45-117); ALT/SGPT 23 U/L (12-78); ANION GAP 6 MEQ/L (8-16); AST/SGOT 11 U/L (15-37); BILIRUBIN,TOTAL 0.2 MG/DL (0.2-1.0); BLOOD UREA NITROGEN 10 MG/DL (7-18); CALCIUM LEVEL 8.9 MG/DL (8.8-10.2); CARBON DIOXIDE LEVEL 31 MEQ/L (21-32); CHLORIDE LEVEL 96 MEQ/L (98-107); CHOLESTEROL LEVEL 140 MG/DL (<200); CREATININE FOR GFR 0.69 MG/DL (0.70-1.30); FREE T4 0.56 NG/DL (0.76-1.46); GLOMERULAR FILTRATION RATE > 60.0 (>49); GLUCOSE, FASTING 89 MG/DL (80-110); POTASSIUM SERUM 4.6 MEQ/L (3.5-5.1); SODIUM LEVEL 133 MEQ/L (136-145); TOTAL PROTEIN 7.4 GM/DL (6.4-8.2); TRIGLYCERIDES LEVEL 132 MG/DL (<150)
[2017-01-27 19:28] LABS: BASO # 0.1 10^3/uL (0.0-0.2); BASO % 0.8 % (0.0-1.0); EOS # 0.4 10^3/uL (0.0-0.50); EOS % 6.8 % (0.0-3.0); IMMATURE GRANULOCYTE % 0.3 % (0-0); LYMPH % 30.2 % (24.0-44.0); MEAN CORPUSCULAR HGB CONC 33.3 g/dl (32.0-36.5); MEAN CORPUSCULAR VOLUME 90.1 fl (80.0-96.0); MONO # 0.7 10^3/uL (0.0-0.8); MONO % 10.3 % (0.0-5.0); NEUTROPHILS # 3.3 10^3/uL (1.8-7.7); NEUTROPHILS % 51.6 % (36.0-66.0); PLATELET COUNT, AUTOMATED 204 10^3/uL (150-450); RED CELL DISTRIBUTION WIDTH 13.8 % (11.5-14.5); WHITE BLOOD COUNT 6.5 10^3/uL (4.0-10.0)
== END ==
LOC: M LAB 09:35
PROVIDERS: ATTEND Nurse Practitioner Adult Health
DX: E53.9 Vitamin B deficiency, unspecified (principal); Z51.81 Encounter for therapeutic drug level monitoring; Z79.899 Other long term (current) drug therapy

== ENCOUNTER → 2017-03-03 | Outpatient (REF) | payer MEDICARE, MEDICAID ==
[~2017-03-03] MED LIST changes: +DRIS50002 PO; +FLOM5CAP PO; +NORCOTAB PO; +OXYB5TAB PO; +OXYB5TAB10 PO; +PAXI20TA29 PO; +PAXI40TA10 PO; +PHEN64.8 PO; +TRAZ10TA GT; +VITA400T15 PO
== END ==
LOC: M SMT 17:12
PROVIDERS: ATTEND Nurse Practitioner Women's Health
DX: R39.15 Urgency of urination (principal)
CPT/HCPCS: 51798; 81001; 87086; G0463

== ENCOUNTER 2017-03-25 19:43 | Observation (INO) | payer MEDICARE, MEDICAID ==
[~2017-03-25] VITALS: Ht 185.4 cm; Wt 104.4 kg
[~2017-03-25 19:43] MED LIST changes: -DRIS50002 PO; -OXYB5TAB PO; -OXYB5TAB10 PO; -PAXI20TA29 PO; -PAXI40TA10 PO; -PHEN64.8 PO; -TRAZ10TA GT; -VITA400T15 PO
[2017-03-25] MEDS ORDERED: OXYB5TAB PO (20:17)
[2017-03-25] MEDS ORDERED: TRAZ10TA GT (20:17)
[2017-03-25] MEDS ORDERED: VITA400T15 PO (20:17)
[2017-03-25] MEDS ORDERED: MIRA33504 PO (20:17)
--- NOTE | 2017-03-25 20:58 | REP ---
Clinical: Altered mental status. Comparison: 01/20/2017. Findings: A right ventriculoperitoneal shunt is identified via the right frontal bone and extends into the lateral ventricle in stable position. Stable hydrocephalus and encephalomalacia into the left parietal lobe again identified and unchanged. The patient is status post right frontal and left parietal craniotomy. Microvascular ischemic changes and periventricular leukomalacia remains stable. A pituitary adenoma measuring approximately 1.6 cm remains unchanged. No acute intracranial hemorrhage or mass effect. No acute extra-axial fluid collection. Partial opacification of the ethmoid and sphenoid sinuses consistent with chronic sinus disease. Mastoid air cells are clear. Impression: Chronic changes as described above including stable 1.6 cm pituitary adenoma. No acute intracranial hemorrhage or mass/mass effect appreciated. Signed by Edy Melendez MD 03/25/2017 08:50 P
--- NOTE | 2017-03-25 21:06 | REP ---
Clinical: Altered mental status. Technique: Complete shunt series. Findings: A enter kilo peritoneal shunt is identified extending through the right frontal bone into the region of the lateral ventricles. The shunt continues along the right side of the neck and chest and terminates in the right mid abdomen just below the level of the liver without evidence for catheter fracture or crimping. Frontal view of the chest cannot exclude mild atelectasis. Frontal view of the abdomen and pelvis demonstrates nonspecific bowel gas pattern. Skeletal structures demonstrate age-related changes. Impression: Appropriate shunt series. No obvious abnormality by radiographic evaluation. Signed by Edy Melendez MD 03/25/2017 08:58 P
[2017-03-25 22:48] LABS: BASO # 0.1 10^3/uL (0.0-0.2); BASO % 0.9 % (0.0-1.0); EOS # 0.4 10^3/uL (0.0-0.50); EOS % 5.9 % (0.0-3.0); IMMATURE GRANULOCYTE % 0.2 % (0-0); LYMPH # 2.2 10^3/uL (1.5-4.5); LYMPH % 34.1 % (24.0-44.0); MEAN CORPUSCULAR HEMOGLOBIN 29.7 pg (27.0-33.0); MEAN CORPUSCULAR HGB CONC 33.7 g/dl (32.0-36.5); MEAN CORPUSCULAR VOLUME 88.1 fl (80.0-96.0); MONO # 0.6 10^3/uL (0.0-0.8); MONO % 9.8 % (0.0-5.0); NEUTROPHILS # 3.2 10^3/uL (1.8-7.7); NEUTROPHILS % 49.1 % (36.0-66.0); PLATELET COUNT, AUTOMATED 186 10^3/uL (150-450); RED CELL DISTRIBUTION WIDTH 13.1 % (11.5-14.5); WHITE BLOOD COUNT 6.6 10^3/uL (4.0-10.0)
[2017-03-25 23:02] LABS: ALBUMIN 3.5 GM/DL (3.2-5.2); ALBUMIN/GLOBULIN RATIO 1.17 (1.00-1.93); ALKALINE PHOSPHATASE 148 U/L (45-117); ALT/SGPT 28 U/L (12-78); ANION GAP 6 MEQ/L (8-16); AST/SGOT 15 U/L (7-37); BILIRUBIN,DIRECT < 0.1 MG/DL (0.0-0.2); BILIRUBIN,TOTAL < 0.1 MG/DL (0.2-1.0); BLOOD UREA NITROGEN 16 MG/DL (7-18); CALCIUM LEVEL 8.4 MG/DL (8.8-10.2); CARBON DIOXIDE LEVEL 31 MEQ/L (21-32); CHLORIDE LEVEL 97 MEQ/L (98-107); CREATININE FOR GFR 0.88 MG/DL (0.70-1.30); GLOMERULAR FILTRATION RATE > 60.0 (>49); GLUCOSE, FASTING 126 MG/DL (80-110); POTASSIUM SERUM 4.4 MEQ/L (3.5-5.1); SODIUM LEVEL 134 MEQ/L (136-145); TOTAL PROTEIN 6.5 GM/DL (6.4-8.2)
[2017-03-26] MEDS ORDERED: levETIRAcetam INJection 750 MG in D5W 100 ML IV ONE (00:15)
[2017-03-26] MEDS ORDERED: FLOM5CAP PO (00:43)
[2017-03-26] MEDS ORDERED: PHEN64.8 PO (00:43)
[2017-03-26] MEDS ORDERED: PAXI40TA10 PO (00:43)
[2017-03-26] MEDS ORDERED: DRIS50002 PO (00:43)
[2017-03-26] MEDS ORDERED: OXYB5TAB10 PO (00:43)
[2017-03-26] MEDS ORDERED: PAXI20TA29 PO (00:43)
--- NOTE | 2017-03-26 01:39 | HPEPDOC ---
General Date of Admission March 26, Primary Care Physician: Rusty Torres [facility] Chief Complaint The patient is a 61-year-old male admitted with a reason for visit of Seizures. Source: [facility] Caregiver/Aid Exam Limitations: Mild cognitive slowing Timing/Duration: 4-6 hours Severity: Moderate History of Present Illness 61 y/o male with past medical history of COPD, epilepsy, brain tumor, DONNA, mental retardation presents to the emergency department after experiencing 5 grand mal seizures within a 30 minute time frame. He is accompanied by his [facility] caregiver as the patient has cognitive slowing and cannot fully answer exam questions. The caregiver states that around 1 PM the staff noticed that the patient was not using the appropriate words when he spoke and seemed to be more confused. They did apparently have a fire drill tonight in the caregiver thinks that the flashing red light and seizures he is taking his medications regularly. There is been no history of illness, no fevers or muscle aches or chills nor complaints of pain with urination or bowel movement. Patient has not shortness of breath or chest pain nor racing heart, however on exam he does state that his chest hurts a few months prior after a traumatic fall, states the chest pain is worse with pressure applied to the area but not with taking a deep breath in. There were no auras that were reported prior to the seizures. Pt denied numbness or paralysis of limbs. Home Medications Scheduled (Amitiza) 24 Mcg Cap, 24 MCG PO DAILY, (Reported) (Calcium 500+D 500-200 mg-Unit) 1 Tab Tab, 1 TAB PO TID, (Reported) Clonazepam (Clonazepam) 0.5 Mg Tab, 0.25 MG PO BID, (Reported) TAKES AT 1200 AND 1600 Clorazepate Dipotassium (Clorazepate Dipotassium) 3.75 Mg Tab, 1.875 MG PO BID, (Reported) Donepezil Hydrochloride (Aricept) 10 Mg Tab, 10 MG PO QHS, (Reported) Fluticasone Propionate (Fluticasone Propionate 0.05%) 120 Leonard/16 Gm Naspr, 2 SPRAY NA DAILY, (Reported) PER NOSTRIL Hydroxyzine HCl (Hydroxyzine HCl) 25 Mg Tab, 25 MG PO QID, (Reported) Lamotrigine (Lamotrigine) 25 Mg Tab, 75 MG PO BID, (Reported) TAKES WITH 200 MG FOR TOTAL OF 275 MG Lamotrigine (Lamotrigine) 200 Mg Tab, 200 MG PO BID, (Reported) TAKES WITH 75 MG FOR TOTAL OF 275 MG Oxybutynin Chloride (Oxybutynin Chloride) 5 Mg Tab, 5 MG PO BID, (Reported) Paroxetine Hydrochloride (Paxil) 20 Mg Tab, 20 MG PO DAILY, (Reported) TAKES WITH 40MG FOR 60MG TOTAL Paroxetine Hydrochloride (Paxil) 40 Mg Tab, 40 MG PO DAILY, (Reported) TAKES WITH 20MG FOR 60MG TOTAL Phenobarbital (Phenobarbital) 64.8 Mg Tab, 64.8 MG PO BID, (Reported) Phenytoin Sodium (Dilantin) 100 Mg Cap, 100 MG PO BID, (Reported) Polyethylene Glycol (Miralax) 1 Pow Pow, 17 GM PO DAILY, (Reported) Quetiapine Fumerate (Seroquel) 50 Mg Tab, 50 MG PO BID, (Reported) TAKES WITH 300MG FOR TOTAL OF 350MG Quetiapine Fumerate (Quetiapine Fumarate) 300 Mg Tab, 300 MG PO BID, (Reported) TAKES WITH 50 MG FOR TOTAL OF 350 MG Senna (Senna Lax) 8.6 Mg Tab, 2 TAB PO QHS, (Reported) Simvastatin (Simvastatin) 20 Mg Tab, 20 MG PO QHS, (Reported) Tamsulosin Hydrochloride (Flomax) 0.4 Mg Cap, 0.4 MG PO QHS, (Reported) Trazodone HCl (Trazodone HCl) 100 Mg Tab, 200 MG PO QHS, (Reported) Vitamin D (Drisdol) 50,000 Unit Cap, 50,000 UNIT PO ASDIRECTED, (Reported) TAKES ON FRIDAY MORNINGS Allergies Coded Allergies: Felbamate (Verified Allergy, Unknown, 07/31/12) Haloperidol (Verified Allergy, Unknown, 10/18/14) Lurasidone (Verified Allergy, Unknown, 10/18/14) Past Medical History Medical History as per hpi Surgical History 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 s/p right frontal and left parietal craniotomy Family History Significant Family History: No pertinent family hx Social History * Smoker: Denies Alcohol: Denies Drugs: denies Psychosocial History: Other (mental retardation ) [facility] resident Review of Symptoms Constitutional: Denies: Chills, Fever, Malaise, Night Sweats, Weakness, Fatigue , Weight Loss Eyes: Denies: Pain, Vision change ENT: Denies: Head Aches, Dysphagia Skin: Denies: Lesions Pulmonary: Denies: Dyspnea, Cough, Pleuritic Chest Pain Cardiovascular: Reports: Chest Pain (left sided, above breast area), Denies: Palpitations, Orthopnea, Edema, Lt Headedness Gastrointestinal: Denies: Nausea, Vomiting Genitourinary: Denies: Dysuria Hematologic: Denies: Bruising Neurological: Denies: Weakness Psych: Reports: Mood Normal Physical Examination General Exam: Positive: Alert, Cooperative, No Acute Distress Eye Exam: Positive: Conjunctiva & lids normal, EOMI ENT Exam: Positive: Mucous membr. moist/pink Chest Exam: Positive: Clear to auscultation, Normal air movement, Negative: Rhonchi, Wheezing, Diminished Heart Exam: Positive: Rate Normal, Normal S1, Normal S2, Negative: Gallops, Murmurs, Rubs Abdomen Exam: Positive: Normal bowel sounds Extremity Exam: Positive: Normal pulses, Negative: Edema, Tenderness Neuro Exam: Negative: Normal Speech (garbled) Psych Exam: Negative: Oriented x 3 Vital Signs Vital Signs Date Time Temp Pulse Resp B/P (MAP) Pulse Ox O2 Delivery O2 Flow Rate FiO2 03/26/17 00:43 77 20 94 Room Air 03/26/17 00:30 122/72 (89) 03/25/17 19:47 97.7 Laboratory Data Labs 24H Laboratory Tests 2 03/25/17 20:23: Immature Granulocyte % (Auto) 0.2H, White Blood Count 6.6, Red Blood Count 3.94L , Hemoglobin 11.7L, Hematocrit 34.7L, Mean Corpuscular Volume 88.1, Mean Corpuscular Hemoglobin 29.7, Mean Corpuscular Hemoglobin Concent 33.7, Red Cell Distribution Width 13.1, Platelet Count 186, Neutrophils (%) (Auto) 49.1, Lymphocytes (%) (Auto) 34.1, Monocytes (%) (Auto) 9.8H, Eosinophils (%) (Auto) 5.9H, Basophils (%) (Auto) 0.9, Neutrophils # (Auto) 3.2, Lymphocytes # (Auto) 2.2, Monocytes # (Auto) 0.6, Eosinophils # (Auto) 0.4, Basophils # (Auto) 0.1, Immature Granulocyte # (Auto) 0.0, Nucleated Red Blood Cells % (auto) 0.0, Anion Gap 6L, Glomerular Filtration Rate > 60.0, Calcium Level 8.4L, Aspartate Amino Transf (AST/SGOT) 15, Alanine Aminotransferase (ALT/SGPT) 28, Alkaline Phosphatase 148H, Total Bilirubin < 0.1L, Direct Bilirubin < 0.1, Total Creatine Kinase 74, Creatine Kinase MB 1.4, Creatine Kinase MB Relative Index 1.89, Troponin I < 0.02, Total Protein 6.5, Albumin 3.5, Albumin/Globulin Ratio 1.17, Phenytoin (Dilantin) Level 6.9L, Phenobarbital Level 23.0 03/25/17 22:30: Urine Appearance CLEAR, Urine Color YELLOW, Urine pH 7.0, Urine Specific [place] 1.011, Urine Protein NEGATIVE, Urine Glucose (UA) NEGATIVE, Urine Ketones NEGATIVE, Urine Urobilinogen 0.2, Urine Bilirubin NEGATIVE, Urine Leukocyte Esterase NEGATIVE, Urine Blood NEGATIVE, Urine Nitrite NEGATIVE, Urine WBC (Auto) 1, Urine RBC (Auto) 1, Urine Hyaline Casts (Auto) 0, Urine Bacteria (Auto) NEGATIVE, Urine Squamous Epithelial Cells 0, Urine Amorphous Sediment SMALLH, Urine Sperm (Auto) CBC/BMP Laboratory Tests 03/25/17 20:23 Red Blood Count 3.94 L, Mean Corpuscular Volume 88.1, Mean Corpuscular Hemoglobin 29.7, Mean Corpuscular Hemoglobin Concent 33.7, Red Cell Distribution Width 13.1, Neutrophils (%) (Auto) 49.1, Lymphocytes (%) (Auto) 34.1, Monocytes (%) (Auto) 9.8 H, Eosinophils (%) (Auto) 5.9 H, Basophils (%) ( Auto) 0.9, Neutrophils # (Auto) 3.2, Lymphocytes # (Auto) 2.2, Monocytes # (Auto ) 0.6, Eosinophils # (Auto) 0.4, Basophils # (Auto) 0.1 Microbiology Microbiology 03/25/17 Urine Culture, Received Pending Assessment/Plan 61 y/o male [facility] resident presents for recent episode of 5 grand-mal seizures in a 30 minute time period this afternoon with associated word confusion hours before the seizures. 1. Recurrent Seizures -likely grand mal -could be 2/2 medication adjustment- when pheyntoin level checked on prior admission in 2015 it was normal, however between that time and now the dose has been decreased, now is sub-therapeutic at 6.9 -pt received keppra in ED 750 mg x1 - consulted neurology, appreciate their recommendations-Keppra BID therapy added on -will c/w home seizure medications and add on tranxene 3.375 BID, pt was on this last admission -seizure precautions -aspiration precautions, pt has nectar thickened food with ground meat, can c/w this -CT head showed chronic changes as described above including a stable 1.6 cm pituitary adenoma and no acute intracranial hemorrhage or mass effect appreciated. -EEG for morning -shunt series done in ED showed the shunts to be in good position w/ no abnormality -no obvious source of infection to account for recurrent seizure, no white count , crp pending, blood and urine cx pending 2. DONNA -pt may use home cpap 3. COPD -Duonebs PRN 4. cognitive slowing -will c/w home medications 5. constipation -c/w amitiza 6. dvt prophylaxis -lovenox Plan / VTE VTE Prophylaxis Ordered?: Yes GME ATTESTATION GME ATTESTATION My faculty preceptor for this patient encounter was physically present during the encounter and was fully available. All aspects of the patient interview, examination, medical decision making process, and medical care plan development were reviewed and approved by the faculty preceptor. The faculty preceptor is aware and concurs with the plan as stated in the body of this note and will attest to such by his/her cosignature. STEPAN ANDERSEN DO Mar 26, 2017 01:39
[2017-03-26] MEDS ORDERED: ONDANSETRON 4MG/2ML VIAL (J2405) IV PRN (02:15)
[2017-03-26] MEDS ORDERED: ACETAMINOPHEN TAB 650MG DOSE (2X325MG) PO PRN (02:15)
[2017-03-26 03:07] VITALS: BP 130/58
[2017-03-26] MEDS ORDERED: IPRATROPIUM 0.5MG/ALBUTEROL 2.5MG INH SOL UD 3ML (DUONEB)(J7620) NEB PRN (03:45)
[2017-03-26 08:00] VITALS: BP 106/60
[2017-03-26] MEDS: PHENYTOIN ER 100 MG CAP PO SCH ×2 (08:58→20:38)
[2017-03-26] MEDS: FLUTICASONE PROP 0.05% NASAL SPRAY 16 GM (FLONASE) SCH (08:59)
[2017-03-26] MEDS: ENOXAPARIN 40 MG/0.4 ML SYRINGE (J1650) SC SCH (08:59)
[2017-03-26] MEDS: levETIRAcetam 250MG TABLET (KEPPRA) PO SCH ×2 (08:59→20:38)
[2017-03-26] MEDS: CLORAZEPATE 3.75 MG TAB PO SCH ×2 (08:59→20:40)
[2017-03-26] MEDS: MIRALAX *UNIT DOSE* 17GM PACKET PO SCH (08:59)
[2017-03-26] MEDS: lamoTRIgine 100MG TAB PO SCH ×2 (09:00→20:39)
[2017-03-26] MEDS: PARoxetine 20 MG TAB PO SCH (09:00)
[2017-03-26] MEDS ORDERED: ENOXAPARIN 40 MG/0.4 ML SYRINGE (J1650) SC SCH (09:00)
[2017-03-26] MEDS: QUEtiapine FUMARATE 100 MG TAB PO SCH ×2 (09:00→20:38)
[2017-03-26] MEDS: oxyBUTYnin 5 MG TAB PO SCH ×2 (09:00→20:38)
[2017-03-26] MEDS: QUEtiapine FUMARATE 50 MG TAB PO SCH ×2 (09:00→20:38)
[2017-03-26] MEDS ORDERED: CLORAZEPATE 3.75 MG TAB PO SCH (09:00)
[2017-03-26] MEDS: lamoTRIgine 25 MG TAB PO SCH ×2 (09:00→20:39)
[2017-03-26] MEDS ORDERED: PARoxetine 20 MG TAB PO SCH (09:00)
[2017-03-26] MEDS: hydrOXYzine 25 MG TAB PO SCH ×4 (09:01→20:38)
[2017-03-26] MEDS: PHENobarbital 30 MG TAB PO SCH ×2 (09:01→20:39)
--- NOTE | 2017-03-26 09:25 | ECGEPIP ---
Stationary ECG Study [facility] - ED Test Date: 2017-03-25 Pat Name: PREM ALMARAZ Department: Room: [place] [address] Gender: M Reliability Technologist: rhea : 1955 Requested By: AMADO Sam Order Number: [id number] Reading MD: Tami Nance Measurements Intervals [place] Rate: 71 P: 56 [place]: 187 QRS: 46 QRSD: 90 T: 65 QT: 433 QTc: 471 Interpretive Statements SINUS RHYTHM PROLONGED QTC NSTTW ABNORMALITY SIMILAR 17 Electronically Signed On 03-26-2017 9:25:43 EST by Tami Nance
[2017-03-26 12:00] VITALS: BP 127/63
[2017-03-26] MEDS: clonazePAM 0.5 MG TAB PO SCH ×2 (13:45→17:07)
[2017-03-26 14:00] VITALS: BP 99/59
[2017-03-26 18:00] VITALS: BP 121/63
[2017-03-26] MEDS ORDERED: traZODone 100 MG TAB PO SCH (21:00)
[2017-03-26] MEDS ORDERED: SIMVASTATIN 20 MG TAB PO SCH (21:00)
[2017-03-26] MEDS ORDERED: TAMSULOSIN 0.4 MG CAP PO SCH (21:00)
[2017-03-26] MEDS ORDERED: SENNA 8.6 MG TAB (SENOKOT) PO SCH (21:00)
[2017-03-26] MEDS ORDERED: DONEPEZIL 5 MG TAB PO SCH (21:00)
[2017-03-26 22:00] VITALS: BP 126/72
[2017-03-27 02:00] VITALS: BP 111/65
[2017-03-27 06:00] VITALS: BP 139/66
[2017-03-27 06:52] LABS: BASO % 0.8 % (0.0-1.0); EOS # 0.3 10^3/uL (0.0-0.50); EOS % 6.2 % (0.0-3.0); IMMATURE GRANULOCYTE % 0.2 % (0-0); LYMPH # 1.8 10^3/uL (1.5-4.5); LYMPH % 34.6 % (24.0-44.0); MEAN CORPUSCULAR HEMOGLOBIN 29.9 pg (27.0-33.0); MEAN CORPUSCULAR HGB CONC 33.1 g/dl (32.0-36.5); MEAN CORPUSCULAR VOLUME 90.4 fl (80.0-96.0); MONO # 0.5 10^3/uL (0.0-0.8); MONO % 10.1 % (0.0-5.0); NEUTROPHILS # 2.5 10^3/uL (1.8-7.7); NEUTROPHILS % 48.1 % (36.0-66.0); PLATELET COUNT, AUTOMATED 161 10^3/uL (150-450); RED CELL DISTRIBUTION WIDTH 13.3 % (11.5-14.5); WHITE BLOOD COUNT 5.1 10^3/uL (4.0-10.0)
[2017-03-27 07:36] LABS: ANION GAP 7 MEQ/L (8-16); BLOOD UREA NITROGEN 15 MG/DL (7-18); CALCIUM LEVEL 8.6 MG/DL (8.8-10.2); CARBON DIOXIDE LEVEL 28 MEQ/L (21-32); CHLORIDE LEVEL 105 MEQ/L (98-107); CREATININE FOR GFR 0.84 MG/DL (0.70-1.30); GLOMERULAR FILTRATION RATE > 60.0 (>49); GLUCOSE, FASTING 78 MG/DL (80-110); POTASSIUM SERUM 4.4 MEQ/L (3.5-5.1); SODIUM LEVEL 140 MEQ/L (136-145)
[2017-03-27] MEDS ORDERED: KEPP250T5 PO (10:18)
--- NOTE | 2017-03-27 10:28 | DS.PDOC ---
Discharge Summary General Date of Admission Mar 25, 2017 at 19:44 Date of Discharge 03/27/17 Specialist/Consultants Involve: ANNA CASTILLO MD Discharge Summary PROCEDURES PERFORMED DURING STAY: [None]. DISCHARGE DIAGNOSES: 1. Seizure disorder with relapse 2. COPD 3. brain mass 3. DONNA 5. Developmental delay COMPLICATIONS/CHIEF COMPLAINT: Recurrent Seizures. HISTORY OF PRESENT ILLNESS: 61 y/o male with past medical history of COPD, epilepsy, brain tumor, DONNA, mental retardation presents to the emergency department after experiencing 5 grand mal seizures within a 30 minute time frame. He was accompanied by his [facility] caregiver as the patient has cognitive slowing and cannot fully answer exam questions. The caregiver states that around 1 PM the staff noticed that the patient was not using the appropriate words when he spoke and seemed to be more confused. They did apparently have a fire drill tonight in the caregiver thinks that the flashing red light and seizures he is taking his medications regularly. There has been no history of illness, no fevers or muscle aches or chills nor complaints of pain with urination or bowel movement. Patient has no shortness of breath or chest pain nor racing heart, however on exam he does state that his chest hurts a few months prior after a traumatic fall, states the chest pain is worse with pressure applied to the area but not with taking a deep breath in. There were no auras that were reported prior to the seizures. Pt denied numbness or paralysis of limbs. HOSPITAL COURSE: Patient seen and evaluated by neurology. EEG performed, c/w known seizure disorder. AED were adjusted, and patient deemed stable for discharge home with outpatient follow up. DISCHARGE MEDICATIONS: Please see below. ALLERGIES: Please see below. PHYSICAL EXAMINATION ON DISCHARGE: VITAL SIGNS: Please see below. GENERAL: NAD HEENT: NC/AT NECK: supple CARDIOVASCULAR EXAMINATION: +S1S2, RRR RESPIRATORY EXAMINATION: CTA B/L ABDOMINAL EXAMINATION: soft, NT, +BS NEUROLOGICAL EXAMINATION: no obvious gross focal deficits ACTIVITY: [As tolerated]. DISCHARGE PLAN: Discharge to [facility] DISPOSITION: . DISCHARGE INSTRUCTIONS: 1. Follow up PCP in 3-5 days. 2. Follow up neurology in 3-7 days. DISCHARGE CONDITION: [Stable]. TIME SPENT ON DISCHARGE: Greater than 30 minutes. Vital Signs/I&Os Vital Signs Date Time Temp Pulse Resp B/P (MAP) Pulse Ox O2 Delivery O2 Flow Rate FiO2 03/27/17 06:00 98.0 73 18 139/66 (90) 91 Nasal Cannula 03/26/17 22:00 1.0 Laboratory Data Labs 24H Laboratory Tests 2 03/27/17 06:28: Immature Granulocyte % (Auto) 0.2H, White Blood Count 5.1, Red Blood Count 3.84L , Hemoglobin 11.5L, Hematocrit 34.7L, Mean Corpuscular Volume 90.4, Mean Corpuscular Hemoglobin 29.9, Mean Corpuscular Hemoglobin Concent 33.1, Red Cell Distribution Width 13.3, Platelet Count 161, Neutrophils (%) (Auto) 48.1, Lymphocytes (%) (Auto) 34.6, Monocytes (%) (Auto) 10.1H, Eosinophils (%) (Auto) 6.2H, Basophils (%) (Auto) 0.8, Neutrophils # (Auto) 2.5, Lymphocytes # (Auto) 1.8, Monocytes # (Auto) 0.5, Eosinophils # (Auto) 0.3, Basophils # (Auto) 0.0, Immature Granulocyte # (Auto) 0.0, Nucleated Red Blood Cells % (auto) 0.0, Anion Gap 7L, Glomerular Filtration Rate > 60.0, Blood Urea Nitrogen 15, Creatinine 0.84, Sodium Level 140, Potassium Level 4.4, Chloride Level 105, Carbon Dioxide Level 28, Calcium Level 8.6L CBC/BMP Laboratory Tests 03/27/17 06:28 Red Blood Count 3.84 L, Mean Corpuscular Volume 90.4, Mean Corpuscular Hemoglobin 29.9, Mean Corpuscular Hemoglobin Concent 33.1, Red Cell Distribution Width 13.3, Neutrophils (%) (Auto) 48.1, Lymphocytes (%) (Auto) 34.6, Monocytes (%) (Auto) 10.1 H, Eosinophils (%) (Auto) 6.2 H, Basophils (%) ( Auto) 0.8, Neutrophils # (Auto) 2.5, Lymphocytes # (Auto) 1.8, Monocytes # (Auto ) 0.5, Eosinophils # (Auto) 0.3, Basophils # (Auto) 0.0, Calcium Level 8.6 L Microbiology Microbiology 03/27/17 Blood Culture, Received Pending 03/26/17 Blood Culture - Preliminary, Resulted No growth after 24 hours . All specim... 03/25/17 Urine Culture, Received Pending Discharge Medications Scheduled (Amitiza) 24 Mcg Cap, 24 MCG PO DAILY, (Reported) (Calcium 500+D 500-200 mg-Unit) 1 Tab Tab, 1 TAB PO TID, (Reported) Clonazepam (Clonazepam) 0.5 Mg Tab, 0.25 MG PO BID, (Reported) TAKES AT 1200 AND 1600 Donepezil Hydrochloride (Aricept) 10 Mg Tab, 10 MG PO QHS, (Reported) Fluticasone Propionate (Fluticasone Propionate 0.05%) 120 [place]/16 Gm Naspr, 2 SPRAY NA DAILY, (Reported) PER NOSTRIL Hydroxyzine HCl (Hydroxyzine HCl) 25 Mg Tab, 25 MG PO QID, (Reported) Lamotrigine (Lamotrigine) 25 Mg Tab, 75 MG PO BID, (Reported) TAKES WITH 200 MG FOR TOTAL OF 275 MG Lamotrigine (Lamotrigine) 200 Mg Tab, 200 MG PO BID, (Reported) TAKES WITH 75 MG FOR TOTAL OF 275 MG Levetiracetam (Keppra) 250 Mg Tab, 750 MG PO BID Oxybutynin Chloride (Oxybutynin Chloride) 5 Mg Tab, 5 MG PO BID, (Reported) Paroxetine Hydrochloride (Paxil) 20 Mg Tab, 20 MG PO DAILY, (Reported) TAKES WITH 40MG FOR 60MG TOTAL Paroxetine Hydrochloride (Paxil) 40 Mg Tab, 40 MG PO DAILY, (Reported) TAKES WITH 20MG FOR 60MG TOTAL Phenobarbital (Phenobarbital) 64.8 Mg Tab, 64.8 MG PO BID, (Reported) Phenytoin Sodium (Dilantin) 100 Mg Cap, 100 MG PO BID, (Reported) Polyethylene Glycol (Miralax) 1 Pow Pow, 17 GM PO DAILY, (Reported) Quetiapine Fumerate (Seroquel) 50 Mg Tab, 50 MG PO BID, (Reported) TAKES WITH 300MG FOR TOTAL OF 350MG Quetiapine Fumerate (Quetiapine Fumarate) 300 Mg Tab, 300 MG PO BID, (Reported) TAKES WITH 50 MG FOR TOTAL OF 350 MG Senna (Senna Lax) 8.6 Mg Tab, 2 TAB PO QHS, (Reported) Simvastatin (Simvastatin) 20 Mg Tab, 20 MG PO QHS, (Reported) Tamsulosin Hydrochloride (Flomax) 0.4 Mg Cap, 0.4 MG PO QHS, (Reported) Trazodone HCl (Trazodone HCl) 100 Mg Tab, 200 MG PO QHS, (Reported) Vitamin D (Drisdol) 50,000 Unit Cap, 50,000 UNIT PO ASDIRECTED, (Reported) TAKES ON FRIDAY MORNINGS Allergies Coded Allergies: Felbamate (Verified Allergy, Unknown, 07/31/12) Haloperidol (Verified Allergy, Unknown, 10/18/14) Lurasidone (Verified Allergy, Unknown, 10/18/14) ANNE MARIE HEREDIA MD Mar 27, 2017 10:28
[2017-03-27] MEDS: ENOXAPARIN 40 MG/0.4 ML SYRINGE (J1650) SC SCH (10:36)
[2017-03-27] MEDS: MIRALAX *UNIT DOSE* 17GM PACKET PO SCH (10:36)
[2017-03-27] MEDS: QUEtiapine FUMARATE 100 MG TAB PO SCH (10:37)
[2017-03-27] MEDS: PHENobarbital 30 MG TAB PO SCH (10:39)
[2017-03-27] MEDS: PARoxetine 20 MG TAB PO SCH (10:40)
[2017-03-27] MEDS: lamoTRIgine 100MG TAB PO SCH (10:40)
[2017-03-27] MEDS: PHENYTOIN ER 100 MG CAP PO SCH (10:40)
[2017-03-27] MEDS: lamoTRIgine 25 MG TAB PO SCH (10:40)
[2017-03-27] MEDS: oxyBUTYnin 5 MG TAB PO SCH (10:40)
[2017-03-27] MEDS: levETIRAcetam 250MG TABLET (KEPPRA) PO SCH (10:40)
[2017-03-27] MEDS: hydrOXYzine 25 MG TAB PO SCH ×2 (10:41→13:09)
[2017-03-27] MEDS: CLORAZEPATE 3.75 MG TAB PO SCH (10:41)
[2017-03-27] MEDS: FLUTICASONE PROP 0.05% NASAL SPRAY 16 GM (FLONASE) SCH (10:41)
[2017-03-27] MEDS: QUEtiapine FUMARATE 50 MG TAB PO SCH (10:41)
[2017-03-27] MEDS: clonazePAM 0.5 MG TAB PO SCH (12:00)
--- NOTE | 2017-03-28 07:23 | EEG ---
DATE OF PROCEDURE: 03/26/2017 REFERRING PHYSICIAN: Dr. Brenden Eagle. DIAGNOSIS: Seizures. EEG NUMBER [id number] HISTORY: The patient is a 61-year-old man with history of intractable seizures who was admitted at [facility] with recurrent seizures. He is currently on phenobarbital, Dilantin and Lamictal and Keppra. This EEG was done to rule out epileptic potential. TECHNICAL DESCRIPTION: This digital EEG was recorded by 21 scalp, ear and two EKG electrodes and was reviewed in bipolar and referential montages following reformatting in 10-20 international electrode placement system. INTERPRETATION: The patient was noted to be in awake and drowsy states during this EEG. Resting background rhythm consisted of 6 - 7 Hertz theta activity measuring 15-40 microvolts in amplitude. Stage II sleep was recorded and was symmetric bilaterally. Hyperventilation could not be performed. Photic stimulation remained unremarkable. Bilateral independent asynchronous PLEDs like discharges were noted in frontal, central and temporal head regions. No clinical or electrographic seizures were recorded. EKG revealed sinus rhythm. CONCLUSION: This EEG in awake, drowsy states, stage II sleep is abnormal due to presence of bilateral independent PLED epileptiform discharges consistent with focal cortical structural or functional abnormality with epileptic potential. In addition, mild generalized slowing is consistent with mild encephalopathy due to multiple potential causes including postictal state, medications, toxic or metabolic reasons or multifocal structural brain abnormality. Clinical correlation is recommended.
[2017-03-31] MEDS ORDERED: VITAMIN D 50,000 UNITS CAPSULE (ERGOCALCIFEROL 1.25MG) PO SCH (09:00)
== END 2017-03-27 13:26 | disposition home or self-care (01) ==
LOC: EDBD 19:43 → M ED 19:43 → M ED INP 19:44 → M MSPAV 03-26 11:51
PROVIDERS: ADMIT Internal Medicine; ATTEND Internal Medicine
DX: G40.911 Epilepsy, unspecified, intractable, with status epilepticus (principal); J44.9 Chronic obstructive pulmonary disease, unspecified; D49.6 Neoplasm of unspecified behavior of brain; G47.33 Obstructive sleep apnea (adult) (pediatric); F79 Unspecified intellectual disabilities; Z98.2 Presence of cerebrospinal fluid drainage device; K59.00 Constipation, unspecified; Z79.899 Other long term (current) drug therapy; Z88.8 Allergy status to other drugs, medicaments and biological substances
CPT/HCPCS: 36415; 51701; 70450; 75809; 80048; 80076; 80184; 80185; 81001; 82550; 82553; 84484; 85025; 86140; 87040; 87088; 87186; 93005; 93041; 94760; 95819; 96365; 96372; 99285; G0378; J1650; J1953

== ENCOUNTER → 2017-05-29 | Outpatient (CLI) | payer MEDICARE, MEDICAID ==
[2017-05-29 10:41] LABS: HEMOGLOBIN 12.1 g/dl (14.0-18.0); MEAN CORPUSCULAR HEMOGLOBIN 29.4 pg (27.0-33.0); MEAN CORPUSCULAR HGB CONC 33.6 g/dl (32.0-36.5); MEAN CORPUSCULAR VOLUME 87.6 fl (80.0-96.0); PLATELET COUNT, AUTOMATED 176 10^3/uL (150-450); RED BLOOD COUNT 4.11 10^6/uL (4.30-6.10); RED CELL DISTRIBUTION WIDTH 13.2 % (11.5-14.5); WHITE BLOOD COUNT 5.2 10^3/uL (4.0-10.0)
[2017-05-29 11:13] LABS: ALBUMIN/GLOBULIN RATIO 1.33 (1.00-1.93); ALKALINE PHOSPHATASE 147 U/L (45-117); ALT/SGPT 24 U/L (12-78); ANION GAP 6 MEQ/L (8-16); AST/SGOT 10 U/L (7-37); BILIRUBIN,TOTAL 0.1 MG/DL (0.2-1.0); BLOOD UREA NITROGEN 11 MG/DL (7-18); CALCIUM LEVEL 8.6 MG/DL (8.8-10.2); CARBON DIOXIDE LEVEL 28 MEQ/L (21-32); CHLORIDE LEVEL 101 MEQ/L (98-107); CHOLESTEROL LEVEL 142 MG/DL (<200); CHOLESTEROL RISK RATIO 2.491 (<5); CPK CREATINE PHOSPHOKINASE 78 U/L (39-308); CREATININE FOR GFR 0.78 MG/DL (0.70-1.30); GLOMERULAR FILTRATION RATE > 60.0 (>49); GLUCOSE, FASTING 90 MG/DL (70-100); HDL CHOLESTEROL 57 MG/DL (>40); LDL CHOLESTEROL 60.2 MG/DL (<100); NON-HDL-C 85 MG/DL; POTASSIUM SERUM 4.6 MEQ/L (3.5-5.1); SODIUM LEVEL 135 MEQ/L (136-145); TRIGLYCERIDES LEVEL 124 MG/DL (<150)
== END ==
LOC: M LAB 09:39
DX: E78.00 Pure hypercholesterolemia, unspecified (principal); E55.9 Vitamin D deficiency, unspecified
CPT/HCPCS: 82550

== ENCOUNTER → 2017-06-23 | Outpatient (CLI) | payer MEDICARE, MEDICAID ==
[2017-06-23 12:24] LABS: HEMOGLOBIN 12.6 g/dl (14.0-18.0); MEAN CORPUSCULAR HEMOGLOBIN 29.4 pg (27.0-33.0); MEAN CORPUSCULAR HGB CONC 33.2 g/dl (32.0-36.5); MEAN CORPUSCULAR VOLUME 88.8 fl (80.0-96.0); PLATELET COUNT, AUTOMATED 191 10^3/uL (150-450); RED BLOOD COUNT 4.28 10^6/uL (4.30-6.10); RED CELL DISTRIBUTION WIDTH 13.4 % (11.5-14.5); WHITE BLOOD COUNT 6.5 10^3/uL (4.0-10.0)
== END ==
LOC: M LAB 11:42
DX: D64.9 Anemia, unspecified (principal)
CPT/HCPCS: 85027

== ENCOUNTER → 2017-07-10 | Outpatient (CLI) | payer MEDICARE, MEDICAID ==
[2017-07-10 09:50] LABS: PHENOBARBITAL LEVEL 24.8 UG/ML (15.0-40.0)
[2017-07-10 09:50] LABS: PHENYTOIN (DILANTIN) 10.2 UG/ML (10.0-20.0)
== END ==
LOC: M LAB 08:26
DX: R56.9 Unspecified convulsions (principal); Z51.81 Encounter for therapeutic drug level monitoring; Z79.899 Other long term (current) drug therapy
CPT/HCPCS: 80185

== ENCOUNTER → 2017-07-10 | Outpatient (CLI) | payer MEDICARE, MEDICAID ==
[2017-07-10 09:45] LABS: CHOLESTEROL LEVEL 147 MG/DL (<200); CHOLESTEROL RISK RATIO 2.773 (<5); GLUCOSE, FASTING 92 MG/DL (70-100); HDL CHOLESTEROL 53 MG/DL (>40); LDL CHOLESTEROL 57.2 MG/DL (<100); NON-HDL-C 94 MG/DL; TRIGLYCERIDES LEVEL 184 MG/DL (<150)
== END ==
LOC: M LAB 08:22
DX: Z51.81 Encounter for therapeutic drug level monitoring (principal); Z79.899 Other long term (current) drug therapy

== ENCOUNTER → 2017-07-22 | Outpatient (CLI) | payer MEDICARE, MEDICAID ==
[~2017-07-22] MED LIST changes: -/LAMO20TA OR; -/TIOT18INH INH; -AMIT24CA7 PO; -ARIC10TA OR; -ARIC1TAB2 PO; -CALC1TAB30 PO; -CLON0.5T PO; -CLOR37TA PO; -DILA100C PO; -DULC10SU2 PR; -FLEEENE4 PR; -FLOM5CAP PO; -FLON0.05; -FLUT1SPR2; -HYDR-3363 PO; -LAMO200T PO; -LAMO25TA2 PO; -LOTRCRE TOP; -MILKSUS PO; -MIRA33504 PO; -NORCOTAB PO; -OYST500T58 OR; -PARO30TA PO; -PAXI40TA OR; -PHEN30CA OR; -PHEN32.44 PO; -PHENOBARBITOL PO; +PROHANCE 279.3MG/ML 15ML VIAL (A9576) As Ordered; -QUET1TAB10 PO; -RISP2TAB12 OR; -RISP3TAB16 OR; -SENN1TAB10 PO; -SERO50TA PO; -SIMV20TA2 PO; -TRAZ-136 PO; -ZOCO5TAB OR
== END ==
LOC: M RAD 13:53
DX: G91.9 Hydrocephalus, unspecified (principal); C71.9 Malignant neoplasm of brain, unspecified; D35.2 Benign neoplasm of pituitary gland; Z98.2 Presence of cerebrospinal fluid drainage device
CPT/HCPCS: A9576

== ENCOUNTER → 2017-08-11 | Outpatient (CLI) | payer MEDICARE, MEDICAID ==
[2017-08-11 09:23] LABS: HEMATOCRIT 39.4 % (42.0-52.0); HEMOGLOBIN 12.8 g/dl (13.5-17.5); MEAN CORPUSCULAR HGB CONC 32.5 g/dl (32.0-36.5); MEAN CORPUSCULAR VOLUME 89.3 fl (80.0-96.0); PLATELET COUNT, AUTOMATED 216 10^3/uL (150-450); RED BLOOD COUNT 4.41 10^6/uL (4.30-6.10); RED CELL DISTRIBUTION WIDTH 13.6 % (11.5-14.5); WHITE BLOOD COUNT 5.3 10^3/uL (4.0-10.0)
[2017-08-11 09:42] LABS: ALBUMIN/GLOBULIN RATIO 1.18 (1.00-1.93); ALKALINE PHOSPHATASE 163 U/L (45-117); ALT/SGPT 28 U/L (12-78); ANION GAP 5 MEQ/L (8-16); AST/SGOT 15 U/L (7-37); BILIRUBIN,TOTAL 0.2 MG/DL (0.2-1.0); BLOOD UREA NITROGEN 13 MG/DL (7-18); CALCIUM LEVEL 8.7 MG/DL (8.8-10.2); CARBON DIOXIDE LEVEL 30 MEQ/L (21-32); CHLORIDE LEVEL 105 MEQ/L (98-107); CHOLESTEROL LEVEL 147 MG/DL (<200); CPK CREATINE PHOSPHOKINASE 127 U/L (39-308); CREATININE FOR GFR 0.89 MG/DL (0.70-1.30); GLOMERULAR FILTRATION RATE > 60.0 (>49); GLUCOSE, FASTING 105 MG/DL (70-100); HDL CHOLESTEROL 62 MG/DL (>40); LDL CHOLESTEROL 59.6 MG/DL (<100); NON-HDL-C 85 MG/DL; POTASSIUM SERUM 4.4 MEQ/L (3.5-5.1); SODIUM LEVEL 140 MEQ/L (136-145); TOTAL PROTEIN 7.4 GM/DL (6.4-8.2); TRIGLYCERIDES LEVEL 127 MG/DL (<150)
[2017-08-11 11:09] LABS: TOTAL 25(OH) VITAMIN D 64.9 NG/ML (30.0-100.0)
== END ==
LOC: M LAB 08:27
DX: I10 Essential (primary) hypertension (principal); E78.5 Hyperlipidemia, unspecified; E55.9 Vitamin D deficiency, unspecified
CPT/HCPCS: 82550

== ENCOUNTER 2017-09-17 20:00 | Inpatient (IN) | payer MEDICARE, MEDICAID ==
[2017-09-17] MEDS: PHENYTOIN 100 MG/2 ML VIAL (J1165) IV (20:58)
[2017-09-17] MEDS: levETIRAcetam INJection 1,000 MG in D5W 100 ML IV (20:58)
[2017-09-17] MEDS: SENNA 8.6 MG TAB (SENOKOT) PO (21:00)
[2017-09-17] MEDS: CHLORHEXIDINE ORAL RINSE 0.12%/15ML 120ML BOTTLE MT (21:00)
[2017-09-17] MEDS: DONEPEZIL 5 MG TAB PO (21:00)
[2017-09-17] MEDS: hydrOXYzine 25 MG TAB PO (21:00)
[2017-09-17] MEDS: QUEtiapine FUMARATE 50 MG TAB PO (21:00)
[2017-09-17 21:19] LABS: BEDSIDE GLUCOSE 162 MG/DL (80-115)
[2017-09-17] MEDS ORDERED: MORPHINE 4 MG/ML 1ML VIAL/SYRINGE (J2270) IV (22:00)
[2017-09-17] MEDS ORDERED: NORCO, ANEXSIA 5/325MG TABLET (HYDROcodone/ACETAMINOPHEN) PO (22:00)
[2017-09-17] MEDS ORDERED: BISACODYL 10 MG SUPP PR (22:00)
[2017-09-17] MEDS ORDERED: ACETAMINOPHEN TAB 650MG DOSE (2X325MG) PO (22:00)
[2017-09-17] MEDS: HEPARIN SOD (PORCINE) 5000 UNITS/ML VIAL SC (22:47)
[2017-09-17] MEDS: D5W/0.9% SODIUM CHLORIDE 1,000 ML IV (22:47)
[2017-09-17] MEDS ORDERED: FLEET ENEMA PR (23:15)
[2017-09-17] MEDS ORDERED: LOTRISONE CREAM 15 GM (BETAMETH/CLOTRIMAZOLE) TOP (23:15)
[2017-09-17] MEDS ORDERED: MOM 30ML SUSPENSION UDC PO (23:15)
[2017-09-18 02:04] LABS: HEMATOCRIT 36.5 % (42.0-52.0); HEMOGLOBIN 12.3 g/dl (13.5-17.5); MEAN CORPUSCULAR HEMOGLOBIN 30.1 pg (27.0-33.0); MEAN CORPUSCULAR HGB CONC 33.7 g/dl (32.0-36.5); MEAN CORPUSCULAR VOLUME 89.5 fl (80.0-96.0); PLATELET COUNT, AUTOMATED 150 10^3/uL (150-450); RED BLOOD COUNT 4.08 10^6/uL (4.30-6.10); RED CELL DISTRIBUTION WIDTH 13.4 % (11.5-14.5); WHITE BLOOD COUNT 8.4 10^3/uL (4.0-10.0)
[2017-09-18] MEDS: lamoTRIgine 100MG TAB PO ×3 (02:06→22:53)
[2017-09-18] MEDS: SIMVASTATIN 20 MG TAB PO ×2 (02:09→22:54)
[2017-09-18] MEDS: PHENYTOIN ER 100 MG CAP PO ×5 (02:10→22:52)
[2017-09-18] MEDS: PHENobarbital 30 MG TAB PO ×3 (02:11→22:53)
[2017-09-18 02:12] LABS: ANION GAP 7 MEQ/L (8-16); BLOOD UREA NITROGEN 14 MG/DL (7-18); CALCIUM LEVEL 8.4 MG/DL (8.8-10.2); CARBON DIOXIDE LEVEL 30 MEQ/L (21-32); CHLORIDE LEVEL 103 MEQ/L (98-107); CREATININE FOR GFR 0.92 MG/DL (0.70-1.30); GLOMERULAR FILTRATION RATE > 60.0 (>49); GLUCOSE, FASTING 144 MG/DL (70-100); POTASSIUM SERUM 4.5 MEQ/L (3.5-5.1); SODIUM LEVEL 140 MEQ/L (136-145)
[2017-09-18] MEDS ORDERED: PILL CRUSHER/CUTTER 1 EACH XX (02:15)
[2017-09-18] MEDS ORDERED: LORazepam 2 MG/ML VIAL (J2060) IV ×2 (02:30→04:00)
[2017-09-18 05:37] LABS: HEMATOCRIT 34.3 % (42.0-52.0); HEMOGLOBIN 11.5 g/dl (13.5-17.5); MEAN CORPUSCULAR HEMOGLOBIN 29.8 pg (27.0-33.0); MEAN CORPUSCULAR HGB CONC 33.5 g/dl (32.0-36.5); MEAN CORPUSCULAR VOLUME 88.9 fl (80.0-96.0); PLATELET COUNT, AUTOMATED 176 10^3/uL (150-450); RED BLOOD COUNT 3.86 10^6/uL (4.30-6.10); RED CELL DISTRIBUTION WIDTH 13.2 % (11.5-14.5); WHITE BLOOD COUNT 7.6 10^3/uL (4.0-10.0)
[2017-09-18 05:46] LABS: ANION GAP 4 MEQ/L (8-16); BLOOD UREA NITROGEN 12 MG/DL (7-18); CALCIUM LEVEL 8.2 MG/DL (8.8-10.2); CARBON DIOXIDE LEVEL 32 MEQ/L (21-32); CHLORIDE LEVEL 103 MEQ/L (98-107); CREATININE FOR GFR 0.86 MG/DL (0.70-1.30); GLOMERULAR FILTRATION RATE > 60.0 (>49); GLUCOSE, FASTING 125 MG/DL (70-100); PHENYTOIN (DILANTIN) 8.7 UG/ML (10.0-20.0); SODIUM LEVEL 139 MEQ/L (136-145)
[2017-09-18] MEDS: HEPARIN SOD (PORCINE) 5000 UNITS/ML VIAL SC ×3 (06:00→22:00)
[2017-09-18 06:03] LABS: PHOSPHORUS LEVEL 2.7 MG/DL (2.5-4.9)
[2017-09-18 06:45] LABS: AMORPHOUS SEDIMENT MODERATE (NEGATIVE); APPEARANCE, URINE CLOUDY (CLEAR); BACTERIA, URINE AUTO NEGATIVE (NEGATIVE); BILIRUBIN, URINE AUTO NEGATIVE (NEGATIVE); BLOOD, URINE BLOOD NEGATIVE (NEGATIVE); COLOR, URINE YELLOW (YELLOW); GLUCOSE, URINE (UA) AUTO NEGATIVE (NEGATIVE); KETONE, URINE AUTO NEGATIVE (NEGATIVE); LEUKOCYTE ESTERASE, URINE AUTO NEGATIVE (NEGATIVE); MUCUS, URINE SMALL (NEGATIVE); NITRITE, URINE AUTO NEGATIVE (NEGATIVE); PROTEIN, URINE AUTO NEGATIVE (NEGATIVE); RBC, URINE AUTO 4 /HPF (0-3); SPECIFIC GRAVITY URINE AUTO 1.016 (1.002-1.035); SQUAMOUS EPITHELIAL CELL UR AU 0 /HPF (0-6); UROBILINOGEN, URINE AUTO 0.2 mg/dL (0.0-2.0); WBC, URINE AUTO 0 /HPF (0-3)
[2017-09-18] MEDS: hydrOXYzine 25 MG TAB PO ×4 (10:04→22:52)
[2017-09-18] MEDS: PANTOPRAZOLE 40MG TAB (PROTONIX) PO (10:05)
[2017-09-18] MEDS: PARoxetine 20 MG TAB PO (10:05)
[2017-09-18] MEDS: QUEtiapine FUMARATE 100 MG TAB PO ×2 (10:06→23:09)
[2017-09-18] MEDS: levETIRAcetam 250MG TABLET (KEPPRA) PO ×2 (10:06→22:53)
[2017-09-18] MEDS: QUEtiapine FUMARATE 50 MG TAB PO ×2 (10:06→23:09)
[2017-09-18] MEDS: TAMSULOSIN 0.4 MG CAP PO (10:06)
[2017-09-18] MEDS: FLUTICASONE PROP 0.05% NASAL SPRAY 16 GM (FLONASE) (10:07)
[2017-09-18] MEDS: CHLORHEXIDINE ORAL RINSE 0.12%/15ML 120ML BOTTLE MT ×2 (10:08→21:00)
[2017-09-18] MEDS: clonazePAM 0.5 MG TAB PO ×2 (12:53→17:02)
[2017-09-18 16:03] LABS: PHENYTOIN (DILANTIN) 11.1 UG/ML (10.0-20.0)
[2017-09-18] MEDS: D5W/0.9% SODIUM CHLORIDE 1,000 ML IV (20:02)
[2017-09-18 20:46] LABS: PHENYTOIN (DILANTIN) 10.8 UG/ML (10.0-20.0)
[2017-09-18] MEDS: DONEPEZIL 5 MG TAB PO (22:52)
[2017-09-18] MEDS: SENNA 8.6 MG TAB (SENOKOT) PO (22:54)
[2017-09-19 05:56] LABS: HEMATOCRIT 35.4 % (42.0-52.0); HEMOGLOBIN 11.8 g/dl (13.5-17.5); MEAN CORPUSCULAR HEMOGLOBIN 29.7 pg (27.0-33.0); MEAN CORPUSCULAR HGB CONC 33.3 g/dl (32.0-36.5); MEAN CORPUSCULAR VOLUME 89.2 fl (80.0-96.0); PLATELET COUNT, AUTOMATED 164 10^3/uL (150-450); RED BLOOD COUNT 3.97 10^6/uL (4.30-6.10); RED CELL DISTRIBUTION WIDTH 12.9 % (11.5-14.5); WHITE BLOOD COUNT 5.8 10^3/uL (4.0-10.0)
[2017-09-19 06:12] LABS: ANION GAP 3 MEQ/L (8-16); BLOOD UREA NITROGEN 7 MG/DL (7-18); CALCIUM LEVEL 8.4 MG/DL (8.8-10.2); CARBON DIOXIDE LEVEL 30 MEQ/L (21-32); CHLORIDE LEVEL 107 MEQ/L (98-107); CREATININE FOR GFR 0.74 MG/DL (0.70-1.30); GLOMERULAR FILTRATION RATE > 60.0 (>49); GLUCOSE, FASTING 118 MG/DL (70-100); PHOSPHORUS LEVEL 2.7 MG/DL (2.5-4.9); SODIUM LEVEL 140 MEQ/L (136-145)
[2017-09-19] MEDS: HEPARIN SOD (PORCINE) 5000 UNITS/ML VIAL SC ×2 (06:42→14:25)
[2017-09-19] MEDS: QUEtiapine FUMARATE 100 MG TAB PO (08:43)
[2017-09-19] MEDS: PHENYTOIN ER 100 MG CAP PO ×3 (08:43→16:32)
[2017-09-19] MEDS: hydrOXYzine 25 MG TAB PO ×3 (08:44→16:32)
[2017-09-19] MEDS: TAMSULOSIN 0.4 MG CAP PO (08:44)
[2017-09-19] MEDS: QUEtiapine FUMARATE 50 MG TAB PO (08:44)
[2017-09-19] MEDS: levETIRAcetam 250MG TABLET (KEPPRA) PO (08:44)
[2017-09-19] MEDS: PANTOPRAZOLE 40MG TAB (PROTONIX) PO (08:44)
[2017-09-19] MEDS: lamoTRIgine 100MG TAB PO (08:44)
[2017-09-19] MEDS: PARoxetine 20 MG TAB PO (08:44)
[2017-09-19] MEDS: FLUTICASONE PROP 0.05% NASAL SPRAY 16 GM (FLONASE) (08:45)
[2017-09-19] MEDS: CHLORHEXIDINE ORAL RINSE 0.12%/15ML 120ML BOTTLE MT (08:45)
[2017-09-19] MEDS: PHENobarbital 30 MG TAB PO (08:48)
[2017-09-19] MEDS: clonazePAM 0.5 MG TAB PO ×2 (12:19→16:33)
[2017-09-19] MEDS: D5W/0.9% SODIUM CHLORIDE 1,000 ML IV (12:19)
[2017-09-22] MEDS ORDERED: VITAMIN D 50,000 UNITS CAPSULE (ERGOCALCIFEROL 1.25MG) PO (09:00)
== END 2017-09-19 17:20 | disposition home or self-care (01) | DRG 101 ==
LOC: M ICU 09-18 02:45 → M ED 20:00 → M PCU 09-18 20:56 → M ED INP 21:55
DX: G40.409 Other generalized epilepsy and epileptic syndromes, not intractable, without status epilepticus (principal); G91.9 Hydrocephalus, unspecified; Z66 Do not resuscitate; F79 Unspecified intellectual disabilities; K21.9 Gastro-esophageal reflux disease without esophagitis; N40.1 Benign prostatic hyperplasia with lower urinary tract symptoms; E78.5 Hyperlipidemia, unspecified; F32.9 Major depressive disorder, single episode, unspecified; R33.9 Retention of urine, unspecified; K59.00 Constipation, unspecified; Z98.2 Presence of cerebrospinal fluid drainage device; Z79.899 Other long term (current) drug therapy; Z88.8 Allergy status to other drugs, medicaments and biological substances; D49.7 Neoplasm of unspecified behavior of endocrine glands and other parts of nervous system

== ENCOUNTER → 2017-09-30 | Outpatient (CLI) | payer MEDICARE, MEDICAID | LOC: M WUC 11:52 | DX: M79.671 Pain in right foot (principal); M79.674 Pain in right toe(s); M19.071 Primary osteoarthritis, right ankle and foot | CPT/HCPCS: 73630 ==

== ENCOUNTER 2017-11-23 19:57 | Emergency (ER) | payer MEDICARE, MEDICAID ==
[2017-11-23 20:41] LABS: BASO % 0.4 % (0.0-1.0); EOS # 0.3 10^3/uL (0.0-0.50); EOS % 6.9 % (0.0-3.0); HEMATOCRIT 37.3 % (42.0-52.0); HEMOGLOBIN 12.5 g/dl (13.5-17.5); IMMATURE GRANULOCYTE % 0.2 % (0-3.0); LYMPH # 1.3 10^3/uL (1.5-4.5); LYMPH % 28.3 % (24.0-44.0); MEAN CORPUSCULAR HEMOGLOBIN 29.4 pg (27.0-33.0); MEAN CORPUSCULAR HGB CONC 33.5 g/dl (32.0-36.5); MEAN CORPUSCULAR VOLUME 87.8 fl (80.0-96.0); MONO # 0.7 10^3/uL (0.0-0.8); MONO % 14.8 % (0.0-5.0); NEUTROPHILS # 2.2 10^3/uL (1.8-7.7); NEUTROPHILS % 49.4 % (36.0-66.0); PLATELET COUNT, AUTOMATED 158 10^3/uL (150-450); RED BLOOD COUNT 4.25 10^6/uL (4.30-6.10); RED CELL DISTRIBUTION WIDTH 13.1 % (11.5-14.5); WHITE BLOOD COUNT 4.5 10^3/uL (4.0-10.0)
[2017-11-23 20:56] LABS: AMMONIA 33 uMOL/L (<32)
[2017-11-23 21:01] LABS: ALBUMIN 3.7 GM/DL (3.2-5.2); ALBUMIN/GLOBULIN RATIO 1.12 (1.00-1.93); ALKALINE PHOSPHATASE 164 U/L (45-117); ALT/SGPT 22 U/L (12-78); ANION GAP 7 MEQ/L (8-16); AST/SGOT 16 U/L (7-37); BILIRUBIN,DIRECT < 0.1 MG/DL (0.0-0.2); BILIRUBIN,TOTAL < 0.1 MG/DL (0.2-1.0); BLOOD UREA NITROGEN 14 MG/DL (7-18); CALCIUM LEVEL 8.4 MG/DL (8.8-10.2); CARBON DIOXIDE LEVEL 31 MEQ/L (21-32); CHLORIDE LEVEL 97 MEQ/L (98-107); CPK CREATINE PHOSPHOKINASE 60 U/L (39-308); CREATININE FOR GFR 0.77 MG/DL (0.70-1.30); GLOMERULAR FILTRATION RATE > 60.0 (>49); GLUCOSE, FASTING 108 MG/DL (70-100); SALICYLATE LEVEL < 1.7 MG/DL (5.0-30.0); SODIUM LEVEL 135 MEQ/L (136-145); TROPONIN I < 0.02 NG/ML (< 0.10)
[2017-11-23 21:07] LABS: ACETAMINOPHEN LEVEL < 2.0 UG/ML (10.0-30.0); CK-MB VALUE MASS 1.3 NG/ML (<3.6); ETHYL ALCOHOL (ETHANOL) < 0.003 % (0.000-0.010); MB/CK RELATIVE INDEX 2.16 (< OR =4)
[2017-11-23] MEDS: NS 1,000 ML IV (21:07)
[2017-11-23 21:08] LABS: PHENOBARBITAL LEVEL 31.7 UG/ML (15.0-40.0); PHENYTOIN (DILANTIN) 20.4 UG/ML (10.0-20.0)
[2017-11-23 21:08] LABS: LACTIC ACID SEPSIS PROTOCOL 1.1 MMOL/L (0.4-2.0)
[2017-11-23 22:09] LABS: AMPHETAMINES LEVEL URINE NEGATIVE (NEGATIVE); BARBITURATES URINE POSITIVE (NEGATIVE); BENZODIAZEPINES URINE NEGATIVE (NEGATIVE); CANNABINOIDS URINE NEGATIVE (NEGATIVE); COCAINE METABOLITE URINE NEGATIVE (NEGATIVE); METHADONE URINE NEGATIVE (NEGATIVE); OPIATES URINE NEGATIVE (NEGATIVE); PHENCYCLIDINE URINE NEGATIVE (NEGATIVE)
[2017-11-26 14:17] LABS: LEVETIRACETAM (KEPPRA) 29.5 ug/mL (10.0-40.0)
[2017-11-26 14:17] LABS: LAMOTRIGINE (LAMICTAL) 8.5 ug/mL (2.0-20.0)
== END 2017-11-23 23:14 | disposition home or self-care (01) ==
LOC: M ED 19:57
DX: G40.909 Epilepsy, unspecified, not intractable, without status epilepticus (principal); R94.31 Abnormal electrocardiogram [ECG] [EKG]; J45.909 Unspecified asthma, uncomplicated; F99 Mental disorder, not otherwise specified; Z88.8 Allergy status to other drugs, medicaments and biological substances; Z91.048 Other nonmedicinal substance allergy status; Z79.899 Other long term (current) drug therapy
CPT/HCPCS: 75809

== ENCOUNTER → 2017-12-19 | Outpatient (CLI) | payer MEDICARE, MEDICAID ==
[2017-12-19 10:38] LABS: HEMATOCRIT 37.1 % (42.0-52.0); HEMOGLOBIN 12.4 g/dl (13.5-17.5); MEAN CORPUSCULAR HEMOGLOBIN 29.5 pg (27.0-33.0); MEAN CORPUSCULAR HGB CONC 33.4 g/dl (32.0-36.5); MEAN CORPUSCULAR VOLUME 88.3 fl (80.0-96.0); PLATELET COUNT, AUTOMATED 183 10^3/uL (150-450); RED CELL DISTRIBUTION WIDTH 13.6 % (11.5-14.5); WHITE BLOOD COUNT 5.1 10^3/uL (4.0-10.0)
[2017-12-19 21:08] LABS: ALBUMIN 3.8 GM/DL (3.2-5.2); ALBUMIN/GLOBULIN RATIO 1.19 (1.00-1.93); ALKALINE PHOSPHATASE 141 U/L (45-117); ALT/SGPT 26 U/L (12-78); ANION GAP 9 MEQ/L (8-16); AST/SGOT 12 U/L (7-37); BILIRUBIN,TOTAL < 0.1 MG/DL (0.2-1.0); BLOOD UREA NITROGEN 11 MG/DL (7-18); CALCIUM LEVEL 8.8 MG/DL (8.8-10.2); CARBON DIOXIDE LEVEL 27 MEQ/L (21-32); CHLORIDE LEVEL 103 MEQ/L (98-107); CHOLESTEROL LEVEL 144 MG/DL (<200); CHOLESTEROL RISK RATIO 2.571 (<5); CPK CREATINE PHOSPHOKINASE 55 U/L (39-308); CREATININE FOR GFR 0.91 MG/DL (0.70-1.30); GLOMERULAR FILTRATION RATE > 60.0 (>49); GLUCOSE, FASTING 97 MG/DL (70-100); HDL CHOLESTEROL 56 MG/DL (>40); NON-HDL-C 88 MG/DL; PROSTATIC SPECIFIC AG MONITOR 0.08 NG/ML (< 4.0); SODIUM LEVEL 139 MEQ/L (136-145); TRIGLYCERIDES LEVEL 170 MG/DL (<150)
== END ==
LOC: M LAB 09:14
DX: J44.9 Chronic obstructive pulmonary disease, unspecified (principal); E78.00 Pure hypercholesterolemia, unspecified; Z12.5 Encounter for screening for malignant neoplasm of prostate

== ENCOUNTER → 2017-12-19 | Outpatient (CLI) | payer MEDICARE, MEDICAID | LOC: M LAB 09:24 | DX: R56.9 Unspecified convulsions (principal); J44.9 Chronic obstructive pulmonary disease, unspecified; E78.00 Pure hypercholesterolemia, unspecified; Z12.5 Encounter for screening for malignant neoplasm of prostate | CPT/HCPCS: 82550 ==

== ENCOUNTER → 2018-01-27 | Outpatient (CLI) | payer MEDICARE, MEDICAID ==
[2018-01-27 11:38] LABS: PHENYTOIN (DILANTIN) 20.4 UG/ML (10.0-20.0)
[2018-01-27 15:56] LABS: PHENOBARBITAL LEVEL 34.6 UG/ML (15.0-40.0)
[2018-01-29 10:13] LABS: LAMOTRIGINE (LAMICTAL) 7.5 ug/mL (2.0-20.0)
[2018-01-29 10:13] LABS: LEVETIRACETAM (KEPPRA) 12.4 ug/mL (10.0-40.0)
== END ==
LOC: M LAB 09:56
DX: G40.909 Epilepsy, unspecified, not intractable, without status epilepticus (principal)
CPT/HCPCS: 80185

== ENCOUNTER → 2018-03-06 | Outpatient (CLI) | payer MEDICARE, MEDICAID ==
[2018-03-06 10:09] LABS: ANION GAP 6 MEQ/L (8-16); BLOOD UREA NITROGEN 8 MG/DL (7-18); CARBON DIOXIDE LEVEL 32 MEQ/L (21-32); CHLORIDE LEVEL 92 MEQ/L (98-107); FREE T4 0.53 NG/DL (0.76-1.46); GLOMERULAR FILTRATION RATE > 60.0 (>49); GLUCOSE, FASTING 93 MG/DL (70-100); POTASSIUM SERUM 4.6 MEQ/L (3.5-5.1); SODIUM LEVEL 130 MEQ/L (136-145)
[2018-03-06 11:02] LABS: CORTISOL AM 17.5 UG/DL (4.3-22.4)
== END ==
LOC: M LAB 08:27
DX: D35.2 Benign neoplasm of pituitary gland (principal)
CPT/HCPCS: 84443

== ENCOUNTER → 2018-03-09 | Outpatient (CLI) | payer MEDICARE, MEDICAID ==
[2018-03-09 10:56] LABS: ANION GAP 8 MEQ/L (8-16); BLOOD UREA NITROGEN 13 MG/DL (7-18); CALCIUM LEVEL 8.8 MG/DL (8.8-10.2); CARBON DIOXIDE LEVEL 28 MEQ/L (21-32); CHLORIDE LEVEL 100 MEQ/L (98-107); CREATININE FOR GFR 0.85 MG/DL (0.70-1.30); GLOMERULAR FILTRATION RATE > 60.0 (>49); GLUCOSE, FASTING 88 MG/DL (70-100); POTASSIUM SERUM 4.6 MEQ/L (3.5-5.1); SODIUM LEVEL 136 MEQ/L (136-145)
== END ==
LOC: M LAB 09:04
DX: D35.2 Benign neoplasm of pituitary gland (principal)
CPT/HCPCS: 84439

== ENCOUNTER → 2018-03-25 | Outpatient (CLI) | payer MEDICARE, MEDICAID | LOC: M LAB 09:13 | DX: E03.9 Hypothyroidism, unspecified (principal) | CPT/HCPCS: 84439 ==

== ENCOUNTER 2018-05-15 03:20 | Inpatient (IN) | payer MEDICARE, MEDICAID ==
[~2018-05-15] VITALS: Ht 185.4 cm; Wt 97.8 kg
[~2018-05-15 03:20] MED LIST changes: +/LAMO20TA OR; +/TIOT18INH INH; +AMIT24CA7 PO; +ARIC10TA OR; +ARIC1TAB2 PO; +CALC1TAB30 PO; +CLON0.5T8 PO; +CLOR37TA PO; +CORE6.25 PO; +DILA100C PO; +DRIS50003 PO; +DULC10SU2 PR; +FLEEENE4 PR; +FLOM0.4C39 PO; +FLON0.05; +FLON1SPR NARES; +FLUT1SPR2; +HUMA100I3 SC; +HYDR-3363 PO; +HYDR1CAP25 PO; +IBUPOTC PO; +KEPP10002 PO; +KEPP1TAB2 PO; +KEPP250T5 PO; +LAMI1TAB9 PO; +LAMO10TA PO; +LAMO200T2 PO; +LAMO25TA4 PO; +LEVE1INJ5 SC; +LEVO-91 PO; +LOTRCRE TOP; +MILK120011 PO; +MIRA33504 PO; +NORCOTAB PO; +OXYB5TAB PO; +OXYB5TAB10 PO; +OYST500T58 OR; +PARO30TA PO; +PAXI20TA29 PO; +PAXI40TA OR; +PAXI40TA10 PO; +PENI1TAB17 PO; +PHEN30CA OR; +PHEN32.44 PO; +PHEN64.8 PO; +PHENOBARBITOL PO; -PROHANCE 279.3MG/ML 15ML VIAL (A9576) As Ordered; +QUET1TAB10 PO; +RISP2TAB12 OR; +RISP3TAB16 OR; +SENN1TAB10 PO; +SENO8.6T5 PO; +SERO1TAB2 PO; +SERO50TA PO; +SIMV20TA2 PO; +TRAD5TAB PO; +TRAZ-163 PO; +TRAZ10TA GT; +TYLE325T5 PO; +VITA400T15 PO; +VITA50005 PO; +VITACRY3 PO; +ZOCO20TA PO; +ZOCO5TAB OR
[2018-05-15 03:55] LABS: BASO % 0.2 % (0.0-1.0); EOS # 0.2 10^3/uL (0.0-0.50); EOS % 1.5 % (0.0-3.0); HEMATOCRIT 40.3 % (42.0-52.0); HEMOGLOBIN 13.5 g/dl (13.5-17.5); LYMPH # 0.9 10^3/uL (1.5-4.5); MEAN CORPUSCULAR HEMOGLOBIN 30.1 pg (27.0-33.0); MEAN CORPUSCULAR HGB CONC 33.5 g/dl (32.0-36.5); MONO # 0.9 10^3/uL (0.0-0.8); MONO % 8.8 % (0.0-5.0); NEUTROPHILS # 8.2 10^3/uL (1.8-7.7); NEUTROPHILS % 80.3 % (36.0-66.0); PLATELET COUNT, AUTOMATED 183 10^3/uL (150-450); RED BLOOD COUNT 4.48 10^6/uL (4.30-6.10); WHITE BLOOD COUNT 10.2 10^3/uL (4.0-10.0)
[2018-05-15 03:59] LABS: APPEARANCE, URINE CLEAR (CLEAR); BACTERIA, URINE AUTO NEGATIVE (NEGATIVE); BILIRUBIN, URINE AUTO NEGATIVE (NEGATIVE); BLOOD, URINE BLOOD NEGATIVE (NEGATIVE); COLOR, URINE STRAW (YELLOW); GLUCOSE, URINE (UA) AUTO NEGATIVE (NEGATIVE); KETONE, URINE AUTO NEGATIVE (NEGATIVE); LEUKOCYTE ESTERASE, URINE AUTO NEGATIVE (NEGATIVE); NITRITE, URINE AUTO NEGATIVE (NEGATIVE); PROTEIN, URINE AUTO NEGATIVE (NEGATIVE); RBC, URINE AUTO 0 /HPF (0-3); SPECIFIC GRAVITY URINE AUTO 1.006 (1.002-1.035); SQUAMOUS EPITHELIAL CELL UR AU 0 /HPF (0-6); UROBILINOGEN, URINE AUTO 0.2 mg/dL (0.0-2.0); WBC, URINE AUTO 0 /HPF (0-3)
[2018-05-15 04:16] LABS: ALT/SGPT 21 U/L (12-78); BILIRUBIN,DIRECT < 0.1 MG/DL (0.0-0.2); BILIRUBIN,TOTAL 0.2 MG/DL (0.2-1.0); BLOOD UREA NITROGEN 10 MG/DL (7-18); CALCIUM LEVEL 8.8 MG/DL (8.8-10.2); CARBON DIOXIDE LEVEL 31 MEQ/L (21-32); CHLORIDE LEVEL 96 MEQ/L (98-107); CREATININE FOR GFR 0.91 MG/DL (0.70-1.30); GLOMERULAR FILTRATION RATE > 60.0 (>49); GLUCOSE, FASTING 126 MG/DL (70-100); PHENYTOIN (DILANTIN) 17.6 UG/ML (10.0-20.0); POTASSIUM SERUM 4.3 MEQ/L (3.5-5.1); SODIUM LEVEL 136 MEQ/L (136-145); TOTAL PROTEIN 7.5 GM/DL (6.4-8.2)
[2018-05-15] MEDS ORDERED: CALC500T44 PO (05:11)
[2018-05-15] MEDS ORDERED: FLON1SPR (05:11)
[2018-05-15] MEDS ORDERED: KEPP10002 PO (05:11)
[2018-05-15] MEDS ORDERED: DILA100C PO (05:11)
--- NOTE | 2018-05-15 06:03 | ECGEPIP ---
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
[2018-05-15] MEDS ORDERED: ACETAMINOPHEN TAB 650MG DOSE (2X325MG) PO ONE (06:30)
[2018-05-15] MEDS ORDERED: LORazepam 2 MG/ML VIAL (J2060) IV STA ×2 (06:48→07:17)
[2018-05-15] MEDS ORDERED: NS 1,000 ML IV ONE ×3 (07:15→09:45)
[2018-05-15] MEDS ORDERED: PHENobarbital 30 MG TAB PO ONE (07:30)
[2018-05-15] MEDS ORDERED: levETIRAcetam 250MG TABLET (KEPPRA) PO ONE (07:30)
[2018-05-15] MEDS ORDERED: PHENYTOIN ER 100 MG CAP PO ONE (07:30)
[2018-05-15] MEDS ORDERED: lamoTRIgine 100MG TAB PO ONE (07:30)
--- NOTE | 2018-05-15 08:06 | REP ---
Portable chest x-ray: Single view. History: Fever. Comparison study: October 19, 2017. Findings: EKG monitoring electrodes overlie the chest. The patient is rotated slightly to the left for the current exposure. The right hemidiaphragm remains elevated. No new infiltrate is seen. Heart is not felt to be enlarged unchanged. Impression: Somewhat elevated right hemidiaphragm. Low level of inspiration. A right FELLER OPERATOR shunt catheter is again seen. No new infiltrate. Electronically Signed by Russell Taylor MD 05/15/2018 07:57 A
[2018-05-15] MEDS ORDERED: ALBUTEROL SULFATE 2.5 MG/0.5 ML INH NEB SOLN INH ONE (08:30)
[2018-05-15] MEDS ORDERED: AZITHROMYCIN INJ 500 MG, VIAL MATE ADAPTER 1 EACH in D5W 250 ML IV ONE (08:30)
[2018-05-15] MEDS ORDERED: IPRATROPIUM 0.5MG/ALBUTEROL 2.5MG INH SOL UD 3ML (DUONEB)(J7620) NEB ONE (08:30)
[2018-05-15] MEDS ORDERED: cefTRIAXone SOD 2 GM in D5W MINI-BAG PLUS 50 ML IV ONE (08:30)
--- NOTE | 2018-05-15 08:35 | REP ---
CT chest without contrast: History: Fever. History of shunt. Altered mental status. CT findings: There is a moderately heavy infiltrate in the right lower lobe with patchy infiltrate in the right upper lobe consistent with pneumonia. Left lung is essentially clear. There is no evidence of pleural effusion. No hilar or mediastinal mass or adenopathy is observed. No bony destructive lesion is seen. Impression: Fairly extensive infiltrate in the right lower lobe and right upper lobe consistent with pneumonia. Electronically Signed by Russell Taylor MD 05/15/2018 08:27 A
--- NOTE | 2018-05-15 08:37 | REP ---
CT Head without contrast HISTORY: Fever COMPARISON: 11/23 Areas of decreased attenuation are present in the right frontal and left temporal and parietal lobes. There is dilatation of the overlying cortical sulci. This represents encephalomalacia. Areas of decreased attenuation are present in the periventricular and subcortical white matter. This represents small-vessel ischemic disease. There is no intraparenchymal hemorrhage, acute infarct, mass or midline shift. The ventricular system and cortical sulci as well as subarachnoid space in the posterior fossa are dilated consistent with mild volume loss. A shunt is present in the body of the right lateral ventricle. There is no extra cerebral collection. There is no fracture. Mucosal thickening is present in the ethmoid maxillary and left frontal sinuses. The patient is status post right frontal and left parietal craniotomy. IMPRESSION: 1. Right frontal and left temporal parietal lobe encephalomalacia. 2. Small vessel ischemic disease. 3. Mild volume loss. Electronically Signed by Brenden Moeller MD 05/15/2018 08:29 A
--- NOTE | 2018-05-15 08:38 | REP ---
CT abdomen pelvis without IV or oral contrast: History: Fever unknown source. History of shunt. Altered mental status. Findings: Preliminary digital ring striker radiograph demonstrates a normal bowel gas pattern. The right ventriculoperitoneal shunt catheter seen in place terminating the right upper quadrant. EKG electrodes are seen. There is a tiny amount of peritoneal fluid adjacent to the shunt catheter which is seen in the subhepatic space. This is adjacent to the gallbladder which is unremarkable. No focal liver lesion is seen. There is a granulomatous calcification centrally in the liver. The spleen is unremarkable. No adrenal lesion is seen on either side. No pancreatic abnormality is observed. The kidneys appear morphologically intact. No stone or hydronephrosis is appreciated. No mass lesion is seen. No retroperitoneal mass or adenopathy is observed. A normal appendix is seen in the right lower quadrant. Small and large intestinal bowel loops are unremarkable. No abdominal wall defect is seen. Urinary bladder is minimally distended and appears intact. Seminal vesicles and prostate are unremarkable. No bony destructive lesion is seen. Impression: Right-sided ventriculoperitoneal shunt in the subhepatic space with a tiny amount of adjacent fluid. No acute disease in the abdomen or pelvis. Electronically Signed by Russell Taylor MD 05/15/2018 08:30 A
--- NOTE | 2018-05-15 08:55 | REP ---
SHUNT SERIES: HISTORY: Altered mental status. COMPARISON: 11/23/2017. The examination is incomplete. A shunt is present with its tip in the region of the bodies of the lateral ventricles. The distal end of the shunt is present in the right upper quadrant of the abdomen. There is no definite shunt discontinuity. IMPRESSION: Incomplete examination demonstrating no definite shunt discontinuity. Electronically Signed by Brenden Moeller MD 05/15/2018 09:13 A
[2018-05-15 08:56] LABS: ABG BASE EXCESS 4.3 (-2.0-2.0); ABG HCO3 29.5 MEQ/L (22.0-26.0); ABG O2 SATURATION 96.8 % (95.0-99.0); ABG PARTIAL PRESSURE CO2 46.7 mmHg (35.0-45.0); ABG PARTIAL PRESSURE O2 93.5 mmHg (75.0-100.0); ABG STANDARD HCO3 28.3 MEQ/L (22.0-26.0); ABG TOTAL CO2 30.9 MEQ/L (23.0-31.0); ABG pH (ARTERIAL) 7.418 UNITS (7.350-7.450)
[2018-05-15] MEDS ORDERED: levETIRAcetam 250MG TABLET (KEPPRA) PO SCH (09:00)
[2018-05-15] MEDS ORDERED: lamoTRIgine 100MG TAB PO SCH (09:00)
[2018-05-15] MEDS ORDERED: NS 150 ML IV ONE (09:45)
[2018-05-15 09:58] LABS: PHENOBARBITAL LEVEL 28.2 UG/ML (15.0-40.0)
[2018-05-15] MEDS ORDERED: LOTRISONE CREAM 15 GM (BETAMETH/CLOTRIMAZOLE) TOP PRN (12:15)
[2018-05-15] MEDS ORDERED: BISACODYL 10 MG SUPP PR PRN (12:15)
[2018-05-15] MEDS ORDERED: FLEET ENEMA PR PRN (12:15)
[2018-05-15] MEDS ORDERED: MOM 30ML SUSPENSION UDC PO PRN (12:15)
[2018-05-15] MEDS ORDERED: ONDANSETRON 4MG/2ML VIAL (J2405) IV PRN (12:45)
[2018-05-15] MEDS ORDERED: PILL CRUSHER/CUTTER 1 EACH XX PRN (13:00)
[2018-05-15] MEDS: hydrOXYzine 25 MG TAB PO SCH ×3 (13:39→22:11)
[2018-05-15] MEDS: clonazePAM 0.5 MG TAB PO SCH ×2 (13:39→17:19)
[2018-05-15] MEDS: PARoxetine 20 MG TAB PO SCH (13:39)
[2018-05-15] MEDS: PANTOPRAZOLE 40MG TAB (PROTONIX) PO SCH (13:39)
[2018-05-15] MEDS: HEPARIN SOD (PORCINE) 5000 UNITS/ML VIAL SC SCH ×2 (13:40→22:12)
[2018-05-15 13:48] LABS: C REACTIVE PROTEIN QUANTITATIV 6.11 MG/DL (0.00-0.30)
[2018-05-15] MEDS: NS 1,000 ML IV SCH ×2 (14:34→18:22)
[2018-05-15 14:52] VITALS: BP 122/62
[2018-05-15 16:00] VITALS: BP 107/68
[2018-05-15] MEDS: PHENYTOIN ER 100 MG CAP PO SCH ×2 (17:18→22:14)
[2018-05-15] MEDS: SENOKOT S TAB PO SCH ×2 (17:18→22:13)
--- NOTE | 2018-05-15 19:34 | HPE ---
DATE OF ADMISSION: 05/15/2018 PRIMARY CARE PROVIDER: Lynette Lugo NEUROLOGIST: Dr. Alonzo covered by Bernice CHIEF COMPLAINT: Shaking movement. HISTORY OF THE PRESENT ILLNESS: This is a 62-year-old male patient who lives at [facility] ([facility]) with underlying medical history of mentally challenged, hydrocephalus with ventriculoperitoneal (BICYCLE RACER) shunt, brain tumor status post brain surgery and pituitary tumor, patient baseline is somewhat verbal, ambulatory with assistance, and also has a history of urinary retention and history of constipation. Patient since 2 o'clock last night has been having intermittent complex partial seizures, shaking of diffuse body movement. Patient was previously evaluated in [place]. He is on multiple seizure medications. On average, has one episode of grand mal seizure a day. Over the past 24 hours since 2 o'clock last night, patient had about 3-4 episodes. The patient had two episodes in the emergency room, given multiple medications. Staff also reported that the patient has been more somnolent than usual, less verbal. In the emergency room, the patient was found to have mild lactic acidosis, given intravenous (IV) fluids with resolution. CT scan of the chest, abdomen, pelvis and head with BICYCLE RACER shunt study was done. The patient was found to have pneumonia. The patient's physical exam also feels rhonchorous, suggestive of pneumonia. Subsequently, the case was discussed with Dr. Queen, Neurology. Subsequently, hospitalist was called to admit the patient. Since evaluation by hospitalist at around 12:00 noon, patient has not had any further episode of seizure. Further history limited because the patient is currently minimally verbal with also baseline mental retardation. ALLERGIES: To HALDOL, LURASIDONE, TAPE, FELBAMATE. PAST MEDICAL HISTORY: Brain tumor with status post brain surgery. Hydrocephalus with BICYCLE RACER shunt. Seizure disorder. Mental retardation. Urinary retention. PAST SURGICAL HISTORY: Brain surgery and BICYCLE RACER shunt. History is significantly limited. FAMILY HISTORY: Unknown. SOCIAL HISTORY: Not smoking, not drinking, baseline minimum ambulatory, lives at a [facility] half-way. Does not smoke or use illicit drugs. Ambulating with assistance at baseline. Puree nectar-thick diet at baseline. REVIEW OF SYSTEMS: Unobtainable. HOME MEDICATIONS: - Amitiza 24 mcg by mouth daily - Lotrisone cream topical twice a day as needed - Dulcolax rectal suppository 10 mg as needed - calcium/vitamin D one tablet by mouth three times a day - clonazepam 0.25 mg by mouth twice a day - donepezil 10 mg by mouth nightly - Flonase nasal spray daily - hydroxyzine 25 mg by mouth four times a day - lamotrigine 200 mg by mouth daily and 400 mg by mouth nightly - Keppra 1000 mg by mouth twice a day - Milk of Magnesia by mouth as needed - Paxil, a total of 60 mg by mouth daily - phenobarbital 64.8 mg by mouth twice a day - phenytoin 100 mg by mouth three times a day - MiraLAX 17 grams by mouth daily - Seroquel 350 mg by mouth twice a day - Senna 8.6 two tablets by mouth nightly - Zocor 20 mg by mouth nightly - enema as needed - Flomax 0.4 mg by mouth nightly - trazodone 200 mg by mouth nightly - vitamin D 50,000 units by mouth once a week on PHYSICAL EXAMINATION: VITAL SIGNS: Temperature 98.5, pulse 83, respirations 19, blood pressure 122/62, pulse oximetry 96% on two liters nasal cannula. GENERAL: Patient alert, able to follow simple commands. HEENT: Normocephalic, atraumatic. CARDIAC: Regular, S1, S2. PULMONARY: Bilateral rhonchi. No wheeze. ABDOMEN: Soft, nontender. Positive bowel sounds. EXTREMITIES: No clubbing, cyanosis, or edema. NEUROLOGIC: Follows simple commands, moves bilateral upper and lower extremities. Cranial nerves II-XII grossly intact. EKG shows sinus tachycardia 105. LABORATORY: WBC 10.2, hemoglobin and hematocrit 13.5 over 40.3, platelets 183. Chemistry: Sodium 136, potassium 4.3, chloride 96, bicarbonate 31, BUN 10, creatinine 0.9, lactic acid initially 2.2, later trended to 1.5. C-reactive protein 6.11. Respiratory panel negative. ASSESSMENT AND PLAN: This is a 62-year-old male patient from [facility] who is mentally challenged, underlying medical history of COPD, epilepsy, brain tumor with resection and BICYCLE RACER shunt, obstructive sleep apnea, mental retardation, recurrent seizure, presented today with multiple episodes of complex partial seizure, found to have pneumonia. PROBLEMS: 1. Seizure disorder. Case discussed with Dr. Queen. Continue current medication. Likely secondary to underlying infection. Continue current medication. Seizure precaution. Fall precaution. Neurologic checks. Followup Lamictal/Keppra level. Continue Dilantin, phenobarbital, Keppra, Lamictal. Will consult neurology if symptoms persist. 2. Pneumonia, community-acquired. Rocephin and Zithromax. Respiratory panel negative. Followup cultures. Chest PT. 3. Constipation. Continue bowel regimen. 4. History of urinary retention. Followup bladder scan. 5. History of hydrocephalus. BICYCLE RACER shunt series appreciated. CT scan appreciated. Will monitor closely. 6. Mental retardation. Continue home medication, supportive care. 7. History of brain tumor, pituitary tumor. Further followup as an outpatient. 8. Depression. Continue current medication. 9. Dyslipidemia. Diet control, outpatient followup. 10. BPH. Outpatient followup. Followup bladder scan and continue Flomax. 11. Dementia. Continue current medication. 12. Deep vein thrombosis (DVT) prophylaxis. Heparin subcu. 13. Diet: Puree, nectar thick. Speech and swallow evaluation consulted. 14. Obstructive sleep apnea (DONNA). DONNA protocol. Home CPAP. DISPOSITION: Pending clinical improvement. Will monitor closely.
[2018-05-15 20:00] VITALS: BP 112/60
[2018-05-15] MEDS: lamoTRIgine 100MG TAB PO SCH (22:10)
[2018-05-15] MEDS: traZODone 100 MG TAB PO SCH (22:11)
[2018-05-15] MEDS: PHENobarbital 30 MG TAB PO SCH (22:11)
[2018-05-15] MEDS: TAMSULOSIN 0.4 MG CAP PO SCH (22:11)
[2018-05-15] MEDS: levETIRAcetam 250MG TABLET (KEPPRA) PO SCH (22:12)
[2018-05-15] MEDS: DONEPEZIL 5 MG TAB PO SCH (22:13)
[2018-05-15] MEDS: QUEtiapine FUMARATE 100 MG TAB PO SCH (22:13)
[2018-05-15] MEDS: SIMVASTATIN 20 MG TAB PO SCH (22:13)
[2018-05-15] MEDS: QUEtiapine FUMARATE 50 MG TAB PO SCH (22:14)
[2018-05-15 23:59] VITALS: BP_SYST 110; BP_SYST 92; BP_DIAS 52; BP_DIAS 62
[2018-05-16 04:00] VITALS: BP 131/64
[2018-05-16] MEDS: NS 1,000 ML IV SCH ×2 (04:55→18:09)
[2018-05-16] MEDS: HEPARIN SOD (PORCINE) 5000 UNITS/ML VIAL SC SCH ×3 (06:12→21:16)
[2018-05-16 06:49] LABS: MEAN CORPUSCULAR HEMOGLOBIN 29.6 pg (27.0-33.0); MEAN CORPUSCULAR HGB CONC 32.1 g/dl (32.0-36.5); MEAN CORPUSCULAR VOLUME 92.2 fl (80.0-96.0); PLATELET COUNT, AUTOMATED 153 10^3/uL (150-450); RED BLOOD COUNT 3.58 10^6/uL (4.30-6.10); WHITE BLOOD COUNT 6.9 10^3/uL (4.0-10.0)
[2018-05-16 07:09] LABS: HEMOGLOBIN 10.6 g/dl (13.5-17.5)
[2018-05-16 07:17] LABS: ALBUMIN 3.1 GM/DL (3.2-5.2); ALT/SGPT 17 U/L (12-78); BILIRUBIN,TOTAL 0.2 MG/DL (0.2-1.0); BLOOD UREA NITROGEN 9 MG/DL (7-18); CALCIUM LEVEL 8.2 MG/DL (8.8-10.2); CARBON DIOXIDE LEVEL 31 MEQ/L (21-32); CHLORIDE LEVEL 110 MEQ/L (98-107); CREATININE FOR GFR 0.72 MG/DL (0.70-1.30); GLOMERULAR FILTRATION RATE > 60.0 (>49); GLUCOSE, FASTING 104 MG/DL (70-100); MAGNESIUM LEVEL 2.4 MG/DL (1.8-2.4); POTASSIUM SERUM 4.1 MEQ/L (3.5-5.1); SODIUM LEVEL 143 MEQ/L (136-145); TOTAL PROTEIN 6.2 GM/DL (6.4-8.2)
[2018-05-16 08:13] VITALS: BP 125/61
[2018-05-16] MEDS: hydrOXYzine 25 MG TAB PO SCH ×4 (08:56→21:15)
[2018-05-16] MEDS: QUEtiapine FUMARATE 100 MG TAB PO SCH ×2 (08:56→21:15)
[2018-05-16] MEDS: lamoTRIgine 100MG TAB PO SCH ×2 (08:56→21:14)
[2018-05-16] MEDS: PANTOPRAZOLE 40MG TAB (PROTONIX) PO SCH (08:56)
[2018-05-16] MEDS: SENOKOT S TAB PO SCH ×2 (08:57→21:15)
[2018-05-16] MEDS: QUEtiapine FUMARATE 50 MG TAB PO SCH ×2 (08:57→21:13)
[2018-05-16] MEDS: levETIRAcetam 250MG TABLET (KEPPRA) PO SCH ×2 (08:57→21:14)
[2018-05-16] MEDS: PHENobarbital 30 MG TAB PO SCH ×2 (08:58→21:13)
[2018-05-16] MEDS: MIRALAX *UNIT DOSE* 17GM PACKET PO SCH (08:58)
[2018-05-16] MEDS: PARoxetine 20 MG TAB PO SCH (08:58)
[2018-05-16] MEDS: FLUTICASONE PROP 0.05% NASAL SPRAY 16 GM (FLONASE) SCH (08:58)
[2018-05-16] MEDS: cefTRIAXone SOD 2 GM in D5W MINI-BAG PLUS 50 ML IV SCH (08:59)
[2018-05-16] MEDS ORDERED: PARoxetine 20 MG TAB PO SCH (09:00)
[2018-05-16] MEDS: PHENYTOIN ER 100 MG CAP PO SCH ×3 (09:03→21:14)
[2018-05-16] MEDS: AZITHROMYCIN INJ 500 MG, VIAL MATE ADAPTER 1 EACH in D5W 250 ML IV SCH (10:21)
[2018-05-16 10:46] VITALS: BP 130/80
[2018-05-16 12:04] LABS: CPK CREATINE PHOSPHOKINASE 75 U/L (39-308); TROPONIN I < 0.02 NG/ML (< 0.10)
[2018-05-16 12:05] VITALS: BP 147/72
[2018-05-16] MEDS: clonazePAM 0.5 MG TAB PO SCH ×2 (12:33→15:18)
--- NOTE | 2018-05-16 14:27 | ECGEPIP ---
Stationary ECG Study [facility] Test Date: 2018-05-16 Pat Name: PREM ALMARAZ Department: Room: [place] [address] Gender: M Toe Stripper: MIRIAM : 1955 Requested By: MICHAEL AQUINO Order Number: [id number] Reading MD: Deric Springer Measurements Intervals [place] Rate: 72 P: 58 [place]: 177 QRS: 33 QRSD: 98 T: 154 QT: 326 QTc: 358 Interpretive Statements SINUS RHYTHM NONSPECIFIC T-WAVE ABNORMALITY Rate decreased from 05-15-18 tracing Electronically Signed On 05-16-2018 14:26:47 EST by Deric Springer
[2018-05-16 16:07] VITALS: BP 130/66
[2018-05-16 18:51] LABS: CPK CREATINE PHOSPHOKINASE 68 U/L (39-308); MB/CK RELATIVE INDEX 1.62 (< OR =4); TROPONIN I < 0.02 NG/ML (< 0.10)
[2018-05-16 20:00] VITALS: BP 145/84
--- NOTE | 2018-05-16 20:02 | IPNPDOC ---
Text Note Date of Service The patient was seen on 05/16/18. NOTE No acute events overnight. no further seizure activity, more responsive. reported questionable chest pain. GENERAL: Patient alert, able to follow simple commands. HEENT: Normocephalic, atraumatic. CARDIAC: Regular, S1, S2. PULMONARY: Bilateral rhonchi. No wheeze. ABDOMEN: Soft, nontender. Positive bowel sounds. EXTREMITIES: No clubbing, cyanosis, or edema. NEUROLOGIC: Follows simple commands, moves bilateral upper and lower extremities. Cranial nerves II-XII grossly intact. ASSESSMENT AND PLAN: This is a 62-year-old male patient from [facility] who is mentally challenged, underlying medical history of COPD, epilepsy, brain tumor with resection and CAR WRECKER shunt, obstructive sleep apnea, mental retardation, recurrent seizure, presented today with multiple episodes of complex partial seizure, found to have pneumonia. PROBLEMS: 1. Seizure disorder. Case discussed with Dr. Queen. Continue current medication. Likely secondary to underlying infection. Continue current medication. Seizure precaution. Fall precaution. Neurologic checks. Followup Lamictal/Keppra level. Continue Dilantin, phenobarbital, Keppra, Lamictal. Will consult neurology if symptoms persist. 2. Pneumonia, with pleuritic chest pain, ekg appreciated, enzymes neg, community-acquired. Rocephin and Zithromax. Respiratory panel negative. Followup cultures. Chest PT. 3. Constipation. Continue bowel regimen. 4. History of urinary retention. Followup bladder scan. 5. History of hydrocephalus. CAR WRECKER shunt series appreciated. CT scan appreciated. Will monitor closely. 6. Mental retardation. Continue home medication, supportive care. 7. History of brain tumor, pituitary tumor. Further followup as an outpatient. 8. Depression. Continue current medication. 9. Dyslipidemia. Diet control, outpatient followup. 10. BPH. Outpatient followup. Followup bladder scan and continue Flomax. 11. Dementia. Continue current medication. 12. Deep vein thrombosis (DVT) prophylaxis. Heparin subcu. 13. Diet: Puree, nectar thick. Speech and swallow evaluation consulted. 14. Obstructive sleep apnea (DONNA). DONNA protocol. Home CPAP. DISPOSITION: Pending clinical improvement. Will monitor closely. VS,Fishbone, I+O VS, Fishbone, I+O Laboratory Tests 05/16/18 05:45 Red Blood Count 3.58 L, Mean Corpuscular Volume 92.2, Mean Corpuscular Hemoglobin 29.6, Mean Corpuscular Hemoglobin Concent 32.1, Red Cell Distribution Width 13.2, Calcium Level 8.2 L, Aspartate Amino Transf (AST/SGOT) 11, Alanine Aminotransferase (ALT/SGPT) 17, Alkaline Phosphatase 126 H, Total Bilirubin 0.2, Total Protein 6.2 L, Albumin 3.1 #L Vital Signs Date Time Temp Pulse Resp B/P (MAP) Pulse Ox O2 Delivery O2 Flow Rate FiO2 05/16/18 18:00 74 96 Nasal Cannula 2.0 05/16/18 16:07 99.2 20 130/66 (87) I&O- Last 24 Hours up to 6 AM 05/16/18 05:59 Intake Total 2850 ml Output Total 2050 ml Balance 800 ml MICHAEL AQUINO MD May 16, 2018 20:02
[2018-05-16] MEDS: SIMVASTATIN 20 MG TAB PO SCH (21:13)
[2018-05-16] MEDS: traZODone 100 MG TAB PO SCH (21:13)
[2018-05-16] MEDS: DONEPEZIL 5 MG TAB PO SCH (21:14)
[2018-05-16] MEDS: TAMSULOSIN 0.4 MG CAP PO SCH (21:15)
[2018-05-17] VITALS: BP 126/63
[2018-05-17 04:00] VITALS: BP 128/74
[2018-05-17] MEDS: NS 1,000 ML IV SCH (04:06)
[2018-05-17] MEDS: HEPARIN SOD (PORCINE) 5000 UNITS/ML VIAL SC SCH ×3 (05:54→21:08)
[2018-05-17 06:07] LABS: HEMATOCRIT 33.5 % (42.0-52.0); HEMOGLOBIN 10.7 g/dl (13.5-17.5); MEAN CORPUSCULAR HEMOGLOBIN 29.3 pg (27.0-33.0); MEAN CORPUSCULAR HGB CONC 31.9 g/dl (32.0-36.5); MEAN CORPUSCULAR VOLUME 91.8 fl (80.0-96.0); PLATELET COUNT, AUTOMATED 162 10^3/uL (150-450); RED BLOOD COUNT 3.65 10^6/uL (4.30-6.10); WHITE BLOOD COUNT 6.2 10^3/uL (4.0-10.0)
[2018-05-17 06:30] LABS: ALBUMIN 3.1 GM/DL (3.2-5.2); ALT/SGPT 17 U/L (12-78); BILIRUBIN,TOTAL 0.1 MG/DL (0.2-1.0); BLOOD UREA NITROGEN 7 MG/DL (7-18); CALCIUM LEVEL 8.3 MG/DL (8.8-10.2); CARBON DIOXIDE LEVEL 28 MEQ/L (21-32); CHLORIDE LEVEL 107 MEQ/L (98-107); CREATININE FOR GFR 0.69 MG/DL (0.70-1.30); GLOMERULAR FILTRATION RATE > 60.0 (>49); GLUCOSE, FASTING 109 MG/DL (70-100); POTASSIUM SERUM 4.1 MEQ/L (3.5-5.1); SODIUM LEVEL 139 MEQ/L (136-145); TOTAL PROTEIN 6.6 GM/DL (6.4-8.2)
[2018-05-17 07:35] VITALS: BP 120/70
[2018-05-17] MEDS: levETIRAcetam 250MG TABLET (KEPPRA) PO SCH ×2 (08:41→21:08)
[2018-05-17] MEDS: FLUTICASONE PROP 0.05% NASAL SPRAY 16 GM (FLONASE) SCH (08:41)
[2018-05-17] MEDS: cefTRIAXone SOD 2 GM in D5W MINI-BAG PLUS 50 ML IV SCH (08:41)
[2018-05-17] MEDS: SENOKOT S TAB PO SCH ×2 (08:41→21:08)
[2018-05-17] MEDS: PHENYTOIN ER 100 MG CAP PO SCH ×3 (08:42→21:07)
[2018-05-17] MEDS: lamoTRIgine 100MG TAB PO SCH ×2 (08:42→21:05)
[2018-05-17] MEDS: hydrOXYzine 25 MG TAB PO SCH ×4 (08:42→21:05)
[2018-05-17] MEDS: PARoxetine 20 MG TAB PO SCH (08:42)
[2018-05-17] MEDS: QUEtiapine FUMARATE 50 MG TAB PO SCH ×2 (08:42→21:08)
[2018-05-17] MEDS: QUEtiapine FUMARATE 100 MG TAB PO SCH ×2 (08:42→21:06)
[2018-05-17] MEDS: PANTOPRAZOLE 40MG TAB (PROTONIX) PO SCH (08:42)
[2018-05-17] MEDS: PHENobarbital 30 MG TAB PO SCH ×2 (08:43→21:06)
[2018-05-17] MEDS: MIRALAX *UNIT DOSE* 17GM PACKET PO SCH (08:43)
[2018-05-17] MEDS: AZITHROMYCIN INJ 500 MG, VIAL MATE ADAPTER 1 EACH in D5W 250 ML IV SCH (10:59)
[2018-05-17] MEDS: clonazePAM 0.5 MG TAB PO SCH ×2 (11:00→16:13)
[2018-05-17 11:46] VITALS: BP 119/57
--- NOTE | 2018-05-17 14:27 | IPNPDOC ---
Text Note Date of Service The patient was seen on 05/17/18. NOTE No acute events overnight. no further seizure activity, more responsive. reported questionable chest pain. GENERAL: Patient alert, able to follow simple commands. HEENT: Normocephalic, atraumatic. CARDIAC: Regular, S1, S2. PULMONARY: Bilateral rhonchi. No wheeze. ABDOMEN: Soft, nontender. Positive bowel sounds. EXTREMITIES: No clubbing, cyanosis, or edema. NEUROLOGIC: Follows simple commands, moves bilateral upper and lower extremities. Cranial nerves II-XII grossly intact. ASSESSMENT AND PLAN: This is a 62-year-old male patient from [facility] who is mentally challenged, underlying medical history of COPD, epilepsy, brain tumor with resection and VULCANIZER OPERATOR shunt, obstructive sleep apnea, mental retardation, recurrent seizure, presented with multiple episodes of complex partial seizure, found to have pneumonia. PROBLEMS: 1. Seizure disorder. Case discussed with Dr. Queen. Continue current medication. Likely secondary to underlying infection. Continue current medication. Seizure precaution. Fall precaution. Neurologic checks. Followup Lamictal/Keppra level. Continue Dilantin, phenobarbital, Keppra, Lamictal. symptoms resolved 2. Pneumonia, with pleuritic chest pain, ekg appreciated, enzymes neg, community-acquired. Rocephin and Zithromax. Respiratory panel negative. Followup cultures. Chest PT. f/u crp 3. Constipation. Continue bowel regimen. 4. History of urinary retention. Followup bladder scan. 5. History of hydrocephalus. VULCANIZER OPERATOR shunt series appreciated. CT scan appreciated. Will monitor closely. 6. Mental retardation. Continue home medication, supportive care. 7. History of brain tumor, pituitary tumor. Further followup as an outpatient. 8. Depression. Continue current medication. 9. Dyslipidemia. Diet control, outpatient followup. 10. BPH. Outpatient followup. Followup bladder scan and continue Flomax. 11. Dementia. Continue current medication. 12. Deep vein thrombosis (DVT) prophylaxis. Heparin subcu. 13. Diet: Puree, nectar thick. Speech and swallow evaluation consulted. 14. Obstructive sleep apnea (DONNA). DONNA protocol. Home CPAP. DISPOSITION: Pending clinical improvement. Will monitor closely. likely DC in 24-48hr VS,Fishbone, I+O VS, Fishbone, I+O Laboratory Tests 05/17/18 05:51 Red Blood Count 3.65 L, Mean Corpuscular Volume 91.8, Mean Corpuscular Hemoglobin 29.3, Mean Corpuscular Hemoglobin Concent 31.9 L, Red Cell Distribution Width 13.1, Calcium Level 8.3 L, Aspartate Amino Transf (AST/SGOT) 10, Alanine Aminotransferase (ALT/SGPT) 17, Alkaline Phosphatase 124 H, Total Bilirubin 0.1 L, Total Protein 6.6, Albumin 3.1 L Vital Signs Date Time Temp Pulse Resp B/P (MAP) Pulse Ox O2 Delivery O2 Flow Rate FiO2 05/17/18 11:46 97.8 80 20 119/57 (77) 90 Room Air 05/17/18 11:12 2.0 I&O- Last 24 Hours up to 6 AM 05/17/18 06:00 Intake Total 3355 ml Output Total 2730 ml Balance 625 ml MICHAEL AQUINO MD May 17, 2018 14:27
[2018-05-17 15:20] VITALS: BP 150/81
[2018-05-17 20:00] VITALS: BP 128/82
[2018-05-17] MEDS: DONEPEZIL 5 MG TAB PO SCH (21:07)
[2018-05-17] MEDS: TAMSULOSIN 0.4 MG CAP PO SCH (21:07)
[2018-05-17] MEDS: SIMVASTATIN 20 MG TAB PO SCH (21:07)
[2018-05-17] MEDS: traZODone 100 MG TAB PO SCH (21:07)
[2018-05-18] VITALS: BP 142/64
[2018-05-18 04:00] VITALS: BP 139/63
[2018-05-18 05:36] LABS: HEMATOCRIT 32.9 % (42.0-52.0); HEMOGLOBIN 10.8 g/dl (13.5-17.5); MEAN CORPUSCULAR HEMOGLOBIN 29.5 pg (27.0-33.0); MEAN CORPUSCULAR HGB CONC 32.8 g/dl (32.0-36.5); MEAN CORPUSCULAR VOLUME 89.9 fl (80.0-96.0); PLATELET COUNT, AUTOMATED 200 10^3/uL (150-450); RED BLOOD COUNT 3.66 10^6/uL (4.30-6.10); WHITE BLOOD COUNT 6.1 10^3/uL (4.0-10.0)
[2018-05-18] MEDS: HEPARIN SOD (PORCINE) 5000 UNITS/ML VIAL SC SCH (05:46)
[2018-05-18 05:50] LABS: ALBUMIN 3.1 GM/DL (3.2-5.2); ALT/SGPT 15 U/L (12-78); BILIRUBIN,TOTAL 0.4 MG/DL (0.2-1.0); BLOOD UREA NITROGEN 9 MG/DL (7-18); CALCIUM LEVEL 8.9 MG/DL (8.8-10.2); CARBON DIOXIDE LEVEL 31 MEQ/L (21-32); CHLORIDE LEVEL 106 MEQ/L (98-107); CREATININE FOR GFR 0.71 MG/DL (0.70-1.30); GLOMERULAR FILTRATION RATE > 60.0 (>49); GLUCOSE, FASTING 99 MG/DL (70-100); MAGNESIUM LEVEL 1.9 MG/DL (1.8-2.4); POTASSIUM SERUM 3.9 MEQ/L (3.5-5.1); SODIUM LEVEL 143 MEQ/L (136-145); TOTAL PROTEIN 6.9 GM/DL (6.4-8.2)
[2018-05-18 08:00] VITALS: BP 137/80
[2018-05-18] MEDS: lamoTRIgine 100MG TAB PO SCH (09:05)
[2018-05-18] MEDS: PHENobarbital 30 MG TAB PO SCH (09:07)
[2018-05-18] MEDS: QUEtiapine FUMARATE 50 MG TAB PO SCH (09:08)
[2018-05-18] MEDS: PANTOPRAZOLE 40MG TAB (PROTONIX) PO SCH (09:08)
[2018-05-18] MEDS: PHENYTOIN ER 100 MG CAP PO SCH ×2 (09:08→16:08)
[2018-05-18] MEDS: PARoxetine 20 MG TAB PO SCH (09:09)
[2018-05-18] MEDS: MIRALAX *UNIT DOSE* 17GM PACKET PO SCH (09:10)
[2018-05-18] MEDS: hydrOXYzine 25 MG TAB PO SCH ×2 (09:11→13:59)
[2018-05-18] MEDS: levETIRAcetam 250MG TABLET (KEPPRA) PO SCH (09:12)
[2018-05-18] MEDS: SENOKOT S TAB PO SCH (09:12)
[2018-05-18] MEDS: QUEtiapine FUMARATE 100 MG TAB PO SCH (09:13)
[2018-05-18] MEDS: cefTRIAXone SOD 2 GM in D5W MINI-BAG PLUS 50 ML IV SCH (09:13)
[2018-05-18] MEDS: FLUTICASONE PROP 0.05% NASAL SPRAY 16 GM (FLONASE) SCH (09:17)
[2018-05-18] MEDS: AZITHROMYCIN INJ 500 MG, VIAL MATE ADAPTER 1 EACH in D5W 250 ML IV SCH (10:00)
[2018-05-18] MEDS ORDERED: CEFD300CAP PO (10:49)
[2018-05-18] MEDS: clonazePAM 0.5 MG TAB PO SCH ×2 (11:46→16:07)
--- NOTE | 2018-05-18 16:23 | DSES ---
DATE OF ADMISSION: 05/15/2018 DATE OF DISCHARGE: 05/18/2018 PRIMARY CARE PROVIDER: Lynette Lugo NP NEUROLOGIST: Dr. Alonzo, covered by Dr. Queen. FINAL DIAGNOSES: 1. Seizure disorder with multiple episodes of complex partial seizure secondary to underlying infection. 2. Community-acquired bacterial pneumonia. 3. Constipation. 4. History of urinary retention. 5. History of hydrocephalus with ventriculoperitoneal (CHECK EMBOSSER) shunt. 6. Mental retardation. 7. History of brain tumor with pituitary tumor. 8. Depression. 9. Dyslipidemia. 10. Benign prostatic hypertrophy (BPH). 11. Dementia. 12. Obstructive sleep apnea. HISTORY OF PRESENT ILLNESS: This is a 62-year-old male patient who lives at [facility] ([facility]) with underlying medical history of mentally challenged, hydrocephalus with ventriculoperitoneal (CHECK EMBOSSER) shunt, brain tumor status post brain surgery, pituitary tumor, baseline somewhat verbal, ambulatory with assistance, also on puree and nectar-thickened diet, also with history of urinary retention, history of constipation. Since 2:00 a.m. on the day of admission, the patient has been having intermittent complex partial seizure, shaking of arms and diffuse shaking body movement intermittently, lasting less than 30 seconds. The patient was previously evaluated in [place]. The patient had multiple seizure medications, on average had one grand mal seizure a week. Over the last 24 hours since 2:00 a.m. last night, the patient has had 3-4 episodes of complex partial seizure. The patient had two episodes in the emergency room, was given the patient's home dose medication. Staff also reported the patient has been somnolent than usual, less verbal. In the emergency room, the patient was found to have mild lactic acidosis and placed on IV fluids with resolution. CT scan of the chest, abdomen and pelvis and CT head with also CHECK EMBOSSER shunt series was done. The patient was found to have pneumonia. Neurology, Dr. Queen, was notified who recommended keeping the patient on the same medication and treat underlying infection. HOSPITAL COURSE: The patient was admitted to the hospital. He was placed on antibiotics and IV fluids. He did not have any additional seizures. Furthermore, the patient's mental status gradually improved during the hospital stay Currently, he is back to baseline, tolerating oral, in no acute distress with no leukocytosis, resolving C-reactive protein. Respiratory panel has been negative. Blood culture has been negative to date. Currently, the patient is back to baseline, ready to be discharged for further care as outpatient. VITAL SIGNS: Temperature 97.5, pulse 75, respiratory rate 17, blood pressure 137/80, pulse oximetry 90% on room air. LABORATORY DATA: WBC 6.1, hemoglobin and hematocrit 10.8/32.9, platelets 200. Chemistry: Sodium 143, potassium 3.9, chloride 106, bicarbonate 31, BUN 9, creatinine 0.71. PHYSICAL EXAMINATION: GENERAL: Patient obese, alert, comfortable, in no acute distress. HEENT: Normocephalic, atraumatic. PULMONARY: Bilaterally clear. CARDIAC: Regular, S1, S2. ABDOMEN: Soft, nontender. Positive bowel sounds. EXTREMITIES: No clubbing, cyanosis, or edema. Moves all four extremities. DISCHARGE MEDICATIONS: - cefdinir 300 mg by mouth twice a day - Amitiza 25 mcg by mouth daily - Lotrisone cream topical twice a day as needed - Dulcolax rectal suppository as needed - calcium with vitamin D by mouth three times a day - clonazepam 0.25 mg by mouth twice a day - donepezil 10 mg by mouth at bedtime - Flonase nasal daily - hydroxyzine 25 mg by mouth four times a day - lamotrigine 200 mg by mouth in the morning, 400 mg by mouth at bedtime - Keppra 1000 mcg by mouth twice a day - milk of magnesia as needed - Paxil 60 mg by mouth daily - phenobarbital 64.8 mg by mouth twice a day - phenytoin 100 mg by mouth three times a day - MiraLAX by mouth daily - Seroquel 350 mg by mouth twice a day - Senna two tablets by mouth at bedtime - Zocor 20 mg by mouth at bedtime - Fleet enema as needed - Flomax 0.4 mg by mouth at bedtime - trazodone 200 mg by mouth at bedtime - vitamin D 50,000 units by mouth weekly DISCHARGE INSTRUCTIONS: The patient is instructed to please followup with neurology in the next seven days, please followup with primary care provider in the next seven days. Aspiration precaution, level 2 solid, nectar-thickened liquid. Return to the hospital if symptoms worsen.
== END 2018-05-18 17:00 | DRG 194 ==
LOC: M ED 03:20 → M ED INP 12:36 → M PCU 14:52
PROVIDERS: ADMIT Hospitalist; ATTEND Hospitalist
DX: J15.9 Unspecified bacterial pneumonia (principal); E87.2 Acidosis; G91.9 Hydrocephalus, unspecified; F79 Unspecified intellectual disabilities; G40.909 Epilepsy, unspecified, not intractable, without status epilepticus; G47.33 Obstructive sleep apnea (adult) (pediatric); F03.90 Unspecified dementia, unspecified severity, without behavioral disturbance, psychotic disturbance, mood disturbance, and anxiety; N40.0 Benign prostatic hyperplasia without lower urinary tract symptoms; E78.5 Hyperlipidemia, unspecified; F32.9 Major depressive disorder, single episode, unspecified; Z79.899 Other long term (current) drug therapy; Z98.2 Presence of cerebrospinal fluid drainage device; Z88.8 Allergy status to other drugs, medicaments and biological substances

== ENCOUNTER → 2018-05-27 | Outpatient (CLI) | payer MEDICARE, MEDICAID ==
[~2018-05-27] MED LIST changes: +CALC500T44 PO; +CEFD300CAP PO; +FLON1SPR
[2018-05-27 10:34] LABS: BLOOD UREA NITROGEN 7 MG/DL (7-18); CALCIUM LEVEL 8.6 MG/DL (8.8-10.2); CARBON DIOXIDE LEVEL 29 MEQ/L (21-32); CHLORIDE LEVEL 100 MEQ/L (98-107); CREATININE FOR GFR 0.86 MG/DL (0.70-1.30); GLOMERULAR FILTRATION RATE > 60.0 (>49); GLUCOSE, FASTING 143 MG/DL (70-100); POTASSIUM SERUM 3.9 MEQ/L (3.5-5.1); SODIUM LEVEL 135 MEQ/L (136-145)
[2018-05-27 10:59] LABS: CORTISOL AM 10.2 UG/DL (4.3-22.4)
[2018-05-27 11:00] LABS: FOLLICLE STIMULATING HORMONE 0.9 mIU/mL (1.4-18.1); LUTEINIZING HORMONE 0.5 mIU/mL (1.5-9.3)
[2018-05-28 18:10] LABS: ADRENOCORTICOTROPHIC HORMONE 11.6 pg/mL (7.2-63.3)
[2018-05-29 00:07] LABS: HUMAN GROWTH HORMONE < 0.1 ng/mL (0.0-10.0); SEX HORMONE BINDING GLOBULIN 144.3 nmol/L (19.3-76.4); TESTOSTERONE FREE (DIRECT) 0.2 pg/mL (6.6-18.1); TESTOSTERONE TOTAL FOR T&D < 3.0 ng/dL (264-916)
== END ==
LOC: M LAB 09:13
PROVIDERS: ATTEND Nurse Practitioner
DX: D35.2 Benign neoplasm of pituitary gland (principal)

== ENCOUNTER → 2018-07-09 | Outpatient (CLI) | payer MEDICARE, MEDICAID ==
[2018-07-09 08:44] LABS: PHENOBARBITAL LEVEL 31.5 UG/ML (15.0-40.0); PHENYTOIN (DILANTIN) 22.4 UG/ML (10.0-20.0)
[2018-07-13 10:21] LABS: LAMOTRIGINE (LAMICTAL) 6.3 ug/mL (2.0-20.0); LEVETIRACETAM (KEPPRA) 16.4 ug/mL (10.0-40.0)
== END ==
LOC: M LAB 07:35
PROVIDERS: ATTEND Physician Assistant Medical
DX: R56.9 Unspecified convulsions (principal)

== ENCOUNTER → 2018-07-24 | Outpatient (CLI) | payer MEDICARE, MEDICAID | LOC: M LAB 08:25 | PROVIDERS: ATTEND Physician Assistant Medical | DX: R56.9 Unspecified convulsions (principal) ==

== ENCOUNTER → 2018-08-18 | Outpatient (CLI) | payer MEDICARE, MEDICAID ==
[~2018-08-18] MED LIST changes: -/LAMO20TA OR; -/TIOT18INH INH; +HYDR-3715 PO; +LAMI1TAB9 OR; +LAMO100T80 PO; -LAMO10TA PO; -NORCOTAB PO; +SPIR1CAP INH
[2018-08-18 09:29] LABS: BLOOD UREA NITROGEN 10 MG/DL (7-18); CALCIUM LEVEL 8.6 MG/DL (8.8-10.2); CARBON DIOXIDE LEVEL 32 MEQ/L (21-32); CHLORIDE LEVEL 103 MEQ/L (98-107); CREATININE FOR GFR 0.84 MG/DL (0.70-1.30); FREE T4 0.42 NG/DL (0.76-1.46); GLOMERULAR FILTRATION RATE > 60.0 (>49); GLUCOSE, FASTING 139 MG/DL (70-100); POTASSIUM SERUM 4.1 MEQ/L (3.5-5.1); SODIUM LEVEL 139 MEQ/L (136-145)
[2018-08-18 10:28] LABS: CORTISOL AM 12.5 UG/DL (4.3-22.4)
[2018-08-18 12:10] LABS: LUTEINIZING HORMONE 0.5 mIU/mL (1.5-9.3)
[2018-08-20 09:49] LABS: HUMAN GROWTH HORMONE < 0.1 ng/mL (0.0-10.0); SEX HORMONE BINDING GLOBULIN 111.3 nmol/L (19.3-76.4); TESTOSTERONE FREE (DIRECT) < 0.2 pg/mL (6.6-18.1)
== END ==
LOC: M LAB 07:57
PROVIDERS: ATTEND Nurse Practitioner
DX: D49.7 Neoplasm of unspecified behavior of endocrine glands and other parts of nervous system (principal)

== ENCOUNTER → 2018-10-01 | Outpatient (CLI) | payer MEDICARE, MEDICAID | LOC: M LAB 12:05 | PROVIDERS: ATTEND Student in an Organized Health Care Education/Training Program | DX: E23.0 Hypopituitarism (principal) ==

== ENCOUNTER → 2018-11-06 | Outpatient (CLI) | payer MEDICARE, MEDICAID ==
[2018-11-06 08:17] LABS: BASO % 0.6 % (0.0-1.0); EOS # 0.3 10^3/uL (0.0-0.50); EOS % 6.4 % (0.0-3.0); HEMOGLOBIN 12.5 g/dl (13.5-17.5); LYMPH # 1.5 10^3/uL (1.5-4.5); LYMPH % 29.5 % (24.0-44.0); MEAN CORPUSCULAR HGB CONC 32.9 g/dl (32.0-36.5); MEAN CORPUSCULAR VOLUME 91.1 fl (80.0-96.0); MONO # 0.5 10^3/uL (0.0-0.8); MONO % 10.4 % (0.0-5.0); NEUTROPHILS # 2.6 10^3/uL (1.8-7.7); NEUTROPHILS % 52.7 % (36.0-66.0); PLATELET COUNT, AUTOMATED 165 10^3/uL (150-450); RED BLOOD COUNT 4.17 10^6/uL (4.30-6.10)
[2018-11-06 08:54] LABS: ALT/SGPT 24 U/L (12-78); BILIRUBIN,TOTAL 0.2 MG/DL (0.2-1.0); BLOOD UREA NITROGEN 8 MG/DL (7-18); CALCIUM LEVEL 8.9 MG/DL (8.8-10.2); CARBON DIOXIDE LEVEL 33 MEQ/L (21-32); CHLORIDE LEVEL 105 MEQ/L (98-107); CHOLESTEROL LEVEL 149 MG/DL (<200); CHOLESTEROL RISK RATIO 2.292 (<5); CREATININE FOR GFR 0.89 MG/DL (0.70-1.30); GLOMERULAR FILTRATION RATE > 60.0 (>49); GLUCOSE, FASTING 99 MG/DL (70-100); HDL CHOLESTEROL 65 MG/DL (>40); LDL CHOLESTEROL 73 MG/DL (<100); NON-HDL-C 84 MG/DL; POTASSIUM SERUM 4.4 MEQ/L (3.5-5.1); SODIUM LEVEL 140 MEQ/L (136-145); TOTAL PROTEIN 7.2 GM/DL (6.4-8.2); TRIGLYCERIDES LEVEL 56 MG/DL (<150)
[2018-11-06 10:11] LABS: HEMOGLOBIN A1c 5.9 %
== END ==
LOC: M LAB 07:23
PROVIDERS: ATTEND Physician Assistant Medical
DX: R53.83 Other fatigue (principal); I10 Essential (primary) hypertension; E78.2 Mixed hyperlipidemia; R56.9 Unspecified convulsions; Z51.81 Encounter for therapeutic drug level monitoring

== ENCOUNTER → 2018-11-06 | Outpatient (CLI) | payer MEDICARE, MEDICAID ==
[2018-11-06 09:11] LABS: PHENOBARBITAL LEVEL 31.1 UG/ML (15.0-40.0); PHENYTOIN (DILANTIN) 19.8 UG/ML (10.0-20.0)
[2018-11-09 14:36] LABS: LAMOTRIGINE (LAMICTAL) 6.7 ug/mL (2.0-20.0); LEVETIRACETAM (KEPPRA) 12.3 ug/mL (10.0-40.0)
== END ==
LOC: M LAB 07:19
PROVIDERS: ATTEND Physician Assistant Medical
DX: R56.9 Unspecified convulsions (principal); Z51.81 Encounter for therapeutic drug level monitoring

== ENCOUNTER → 2019-01-26 | Outpatient (CLI) | payer MEDICARE, MEDICAID ==
[~2019-01-26] MED LIST changes: -OXYB5TAB PO; +OXYB5TAB2 PO
[2019-01-26 10:41] LABS: CHOLESTEROL RISK RATIO 2.7 (<5)
== END ==
LOC: M LAB 09:09
PROVIDERS: ATTEND Psychiatry & Neurology Psychiatry
DX: Z79.899 Other long term (current) drug therapy (principal)

== ENCOUNTER → 2019-03-04 | Outpatient (CLI) | payer MEDICARE, MEDICAID ==
[~2019-03-04] MED LIST changes: +ACET-907 PO; +DOXY100T2 PO; +LEVE500T5 PO; +MIRA3350 PO; +MUPI2OI TOP; +PARO20TA3 PO; +RA S8.6T3 PO
[2019-03-04 12:32] LABS: PHENOBARBITAL LEVEL 31.4 UG/ML (15.0-40.0); PHENYTOIN (DILANTIN) 18.4 UG/ML (10.0-20.0)
[2019-03-07 14:41] LABS: LAMOTRIGINE (LAMICTAL) 3.9 ug/mL (2.0-20.0); LEVETIRACETAM (KEPPRA) 8.1 ug/mL (10.0-40.0)
== END ==
LOC: M LAB 10:50
PROVIDERS: ATTEND Physician Assistant Medical
DX: R56.9 Unspecified convulsions (principal)

== ENCOUNTER 2019-03-06 16:39 | Inpatient (IN) | payer MEDICARE, MEDICAID ==
[~2019-03-06] VITALS: Ht 185.4 cm; Wt 98.9 kg
[~2019-03-06 16:39] MED LIST changes: -ACET-907 PO; +CLON0.5T2 PO; -CLON0.5T8 PO; -DOXY100T2 PO; -LAMO200T2 PO; +LAMO200T3 PO; -LEVE500T5 PO; -MIRA3350 PO; -MUPI2OI TOP; -PARO20TA3 PO; -RA S8.6T3 PO; -SIMV20TA2 PO; +SIMV20TA22 PO
[2019-03-06] MEDS ORDERED: DOXY100T2 PO (16:52)
[2019-03-06] MEDS ORDERED: MUPI2OI TOP (16:52)
[2019-03-06] MEDS ORDERED: LIDOCAINE 1% MDV 20ML VIAL SC ONE (17:45)
[2019-03-06] MEDS ORDERED: NS 1,000 ML IV SCH (17:58)
[2019-03-06] MEDS ORDERED: VANCOMYCIN HCL 1,000 MG, VIAL MATE ADAPTER 1 EACH in D5W 250 ML IV ONE (18:00)
[2019-03-06] MEDS ORDERED: KETOROLAC 30 MG/ML VIAL (J1885) IV ONE (18:00)
[2019-03-06] MEDS ORDERED: ACET-907 PO (18:25)
[2019-03-06] MEDS ORDERED: MIRA3350 PO (18:25)
[2019-03-06] MEDS ORDERED: LEVE500T5 PO (18:25)
[2019-03-06] MEDS ORDERED: HYDR-3363 PO (18:25)
[2019-03-06] MEDS ORDERED: PARO20TA3 PO (18:25)
[2019-03-06] MEDS ORDERED: RA S8.6T3 PO (18:25)
[2019-03-06] MEDS ORDERED: ACETAMINOPHEN TAB 650MG DOSE (2X325MG) PO PRN (19:15)
--- NOTE | 2019-03-06 19:18 | HPEPDOC ---
[facility] Medical History & Physical Date of Admission Mar 06, 2019 Date of Service: Mar 06, 2019 Attending Physician: DAT LOWRY MD History and Physical TIME OF SERVICE: 8:15 PM CHIEF COMPLAINT: Skin lesions HISTORY OF PRESENT ILLNESS: The history was obtained from the ED provider and the patient's group tester. The patient has developmental disability and was unable to contribute to the history. This is 63-year-old male that lives in a prison that has an MRSA outbreak. According to the group tester the patient has had spots all over his back, has been complaining of pain & has been more lethargic and sleepy than usual; the patient has not had fevers or chills. According to the ED provider the patient was started on doxycycline on Mar 04 but didn't improve. The patient has also been having seizures more frequently over the last few days despite taking his medications; his last seizure was on the . Currently the patient denies having any complaints or concerns. The ED provider lanced one of the lesions at the lower back and gave the patient one dose of vancomycin and IV fluids. REVIEW OF SYSTEMS: Unable to obtain because of patient's developmental disability PAST MEDICAL/ SURGICAL HISTORY: Developmental disability. Hydrocephalus status post HEALTH COMPANION shunt placement. Seizure disorder. COPD Sleep apnea on CPAP BPH. Chronic hypertension. Dyslipidemia. CVA in 1985 and 1988 History of pituitary tumor Status post laparoscopic cholecystectomy SOCIAL HISTORY: [facility]. Nonsmoker FAMILY HISTORY: Unable to obtain because of patient's developmental disability ALLERGIES: Please see below. HOME MEDICATIONS: Please see below. PHYSICAL EXAMINATION: VITAL SIGNS: Please see below. GENERAL APPEARANCE: Well-nourished, well-developed, not in apparent distress HEENT: Wearing a helmet on his head, mucous membranes are moist and pink, CARDIOVASCULAR: Regular rate and rhythm. No murmurs, rubs or gallops LUNGS: Clear to auscultation bilaterally on room air ABDOMEN: Soft and nontender on palpation MUSCULOSKELETAL: Range of motion intact in all 4 extremities INTEGUMENT: Has multiple red round, raised lesions on his back including a larger, raised lesion at the left posterior lateral aspect of the left upper leg. There is dressings at the lower back that is soaked in blood . NEUROLOGICAL: Cranial nerves II 12 grossly intact. Speech not dysarthric PSYCHIATRIC: Alert and oriented to person, able to tell me his name and follow a few simple commands LABORATORY DATA: See below. MICROBIOLOGY: Please see below. ASSESSMENT: Mr. Hunt is a 63-year-old male with past medical history of developmental disability, hydrocephalus, seizures, COPD, sleep apnea, BPH, chronic hypertension, dyslipidemia, pituitary tumor, and dyslipidemia who will be admitted for management of skin lesions, likely due to MRSA. PLAN: 1. Multiple skin lesions secondary to MRSA. He doesn't meet the sepsis criteria. One of the lesions was incised and drained and for cultures were sent Plan: Admit to medical floor/continue vancomycin/follow-up fluid cultures and blood cultures/daytime team may consider surgical consult for incision and drainage of the lesion at the posterior aspect of the left upper leg if it doesn't decrease in size over the next few days / ibuprofen and acetaminophen for pain 2. Seizure disorder. Plan; follow up serum phenytoin a an orbital levels/resume home meds 3 Normocytic normochromic anemia Plan: Follow-up reticulocyte count, iron panel and CBC 4. Developmental disability Plan: Follow-up precautions/bed alarm / resume home meds 5. COPD Plan: Resume home meds 6. Sleep apnea on CPAP Plan: own CPAP 7. BPH. Plan: Resume home meds 8. Chronic hypertension. Plan: Resume home meds 9. Dyslipidemia. Plan: Resume home meds 10.Hx of CVAs Plan: Resume home meds DVT prophylaxis with Lovenox. Disposition back to prison pending clinical course Vital Signs Vital Signs Date Time Temp Pulse Resp B/P (MAP) Pulse Ox O2 Delivery O2 Flow Rate FiO2 03/06/19 17:19 03/06/19 16:45 97.8 86 20 98 Room Air Home Medications Scheduled Calcium Carbonate/Vitamin D3 (Calcium 500-Vit D3 200 Tablet) 1 Tab Tab, 1 TAB PO TID Clonazepam (Clonazepam) 0.5 Mg Tab, 0.25 MG PO BID TAKES AT 1200 AND 1600 Donepezil HCl (Aricept) 10 Mg Tab, 10 MG PO QHS Doxycycline Hyclate (Doxycycline Hyclate) 100 Mg Tablet, 100 MG PO BID STARTED 03/04/19 Ergocalciferol (Vitamin D2) (Drisdol) 50,000 Unit Cap, 50,000 UNIT PO 1XWK TAKES ON FRIDAY MORNINGS Fluticasone Propionate (Flonase Allergy Relief) 50 Mcg/Act Spr, 2 SPRAYS NA DAILY Hydroxyzine HCl (Hydroxyzine HCl) 25 Mg Tablet, 25 MG PO QID Lamotrigine (Lamotrigine) 200 Mg Tab, 200 MG PO DAILY Lamotrigine (Lamictal) 200 Mg Tab, 400 MG PO QHS Lubiprostone (Amitiza) 24 Mcg Cap, 24 MCG PO DAILY Mupirocin (Mupirocin) 22 Gm Oint...g., 1 DOSE TOP BID WITH DRESSING CHANGES FOR 10 DAYS - STARTED 03/04/19 Paroxetine HCl (Paxil) 40 Mg Tab, 40 MG PO DAILY 60MG TOTAL Paroxetine HCl (Paroxetine HCl) 20 Mg Tablet, 20 MG PO DAILY 60MG TOTAL Phenobarbital (Phenobarbital) 64.8 Mg Tab, 64.8 MG PO BID Phenytoin Sodium Extended (Dilantin) 100 Mg Cap, 100 MG PO TID Polyethylene Glycol 3350 (Miralax) 119 Gm Powder, 17 GM PO DAILY Quetiapine Fumarate (Seroquel) 50 Mg Tab, 50 MG PO BID TAKES WITH 300MG FOR TOTAL OF 350MG Quetiapine Fumarate (Quetiapine Fumarate) 300 Mg Tab, 300 MG PO BID TAKES WITH 50 MG FOR TOTAL OF 350 MG Sennosides (Senna Lax) 8.6 Mg Tablet, 17.2 MG PO QHS Simvastatin (Simvastatin) 20 Mg Tab, 20 MG PO QHS Tamsulosin HCl (Flomax) 0.4 Mg Cap, 0.4 MG PO QHS Trazodone HCl (Trazodone HCl) 100 Mg Tab, 200 MG PO QHS levETIRAcetam (levETIRAcetam) 500 Mg Tablet, 1,000 MG PO BID Scheduled PRN Acetaminophen (Tylenol) 325 Mg Tablet, 650 MG PO Q6H PRN for PAIN / FEVER Allergies Coded Allergies: felbamate (Verified Allergy, Unknown, 03/06/19) haloperidol (Verified Allergy, Unknown, 03/06/19) lurasidone (Verified Allergy, Unknown, 03/06/19) TAPE (Verified Adverse Reaction, Unknown, rash, 03/06/19) A-FIB/CHADSVASC A-FIB History Current/History of A-Fib/PAF?: No Current PO Anticoag Therapy: No DAT LOWRY MD Mar 06, 2019 19:18
[2019-03-06] MEDS ORDERED: IBUPROFEN 600 MG TAB PO PRN (19:30)
[2019-03-06 19:58] LABS: BASO % 0.3 % (0.0-1.0); EOS # 0.5 10^3/uL (0.0-0.5); EOS % 3.9 % (0.0-3.0); HEMATOCRIT 36.6 % (42.0-52.0); HEMOGLOBIN 11.9 g/dl (13.5-17.5); LYMPH # 1.2 10^3/uL (1.5-5.0); LYMPH % 9.8 % (24.0-44.0); MEAN CORPUSCULAR HEMOGLOBIN 29.6 pg (27.0-33.0); MEAN CORPUSCULAR HGB CONC 32.5 g/dl (32.0-36.5); MONO # 1.3 10^3/uL (0.0-0.8); MONO % 10.3 % (0.0-5.0); NEUTROPHILS # 9.3 10^3/uL (1.5-8.5); NEUTROPHILS % 75.1 % (36.0-66.0); PLATELET COUNT, AUTOMATED 235 10^3/uL (150-450); RED BLOOD COUNT 4.02 10^6/uL (4.30-6.10); WHITE BLOOD COUNT 12.4 10^3/uL (4.0-10.0)
[2019-03-06 20:43] LABS: ALBUMIN 3.1 GM/DL (3.2-5.2); ALT/SGPT 20 U/L (12-78); AMYLASE 29 U/L (25-115); BILIRUBIN,DIRECT < 0.1 MG/DL (0.0-0.2); BILIRUBIN,TOTAL 0.2 MG/DL (0.2-1.0); BLOOD UREA NITROGEN 16 MG/DL (7-18); CALCIUM LEVEL 8.7 MG/DL (8.8-10.2); CARBON DIOXIDE LEVEL 32 MEQ/L (21-32); CHLORIDE LEVEL 101 MEQ/L (98-107); CREATININE FOR GFR 0.76 MG/DL (0.70-1.30); GLOMERULAR FILTRATION RATE > 60.0 (>49); GLUCOSE, FASTING 99 MG/DL (70-100); POTASSIUM SERUM 4.2 MEQ/L (3.5-5.1); SODIUM LEVEL 137 MEQ/L (136-145); TOTAL PROTEIN 7.2 GM/DL (6.4-8.2)
[2019-03-06] MEDS: ENOXAPARIN 40 MG/0.4 ML SYRINGE (J1650) SC SCH (21:06)
[2019-03-06] MEDS ORDERED: SENNA 8.6 MG TAB (SENOKOT) PO SCH (21:15)
[2019-03-06] MEDS: MUPIROCIN 2% OINT 22 GM TUBE TOP SCH (21:15)
[2019-03-06 21:28] LABS: PHENOBARBITAL LEVEL 32.4 UG/ML (15.0-40.0); PHENYTOIN (DILANTIN) 18.6 UG/ML (10.0-20.0)
--- NOTE | 2019-03-06 21:49 | PHACANCOPD ---
PHARMACY VANCOMYCIN DOSING Pt Demographics Demographics Patient Age:63 , Weight:100.000 , Gender: male Adjusted Body Weight Date: 03/06/19, Adjusted Body Weight: Kg Events Past 24 Hours Events Past 24 Hours: NO: Dialysis, Diuretic Therapy, Change in CrCl, Fever, Elevation in WBC, Pending Diagnostics, Pending Procedures, Other Vancomycin Vancomycin Target Ranges: 15-20 mcg/ml Vancomycin Load Y/N: Yes Load Dose Date Time Vancomycin Load Dose: 2000mg Date: 03-06 Time: 2200 Vancomycin Dose Date: 03/06/19. Current Vancomycin Dose: [1000mg q8h] Intermittent Dosing?: No Labs Labs Item Value Date Time White Blood Count 12.4 10^3/uL H 03/06/191948 Glomerular Filtration Rate > 60.0 03/06/191948 Creatinine 0.76 MG/DL 03/06/191948 Blood Urea Nitrogen 16 MG/DL 03/06/191948 Vital Signs Label Value Date Time Patient Temperature 97.8 degrees F 03/06/19 1645 Temperature Source Temporal 03/06/19 1645 Micro Microbiology 03/06/19 Gram Stain, Received Pending 03/06/19 Wound Culture, Received Pending 03/06/19 Blood Culture, Received Pending 03/06/19 Blood Culture, Received Pending Creatinine Clearance Date:03/06/19. Creatinine Clearance: [~85]. Pending Labs Trough 11-10 @1300 Assessment and Plan Maintaining Current Dose?: Yes Reason for dose change: No Dose Change Pharmacist Note Pharmacist Note Date: 03/06/19. Pharmacist note:Will monitor and make adjustments as needed. [facility] Mar 06, 2019 21:49
[2019-03-06 22:28] LABS: FERRITIN 318 NG/ML (26-388); IRON (FE) 32 UG/DL (65-175); PERCENT SATURATION 13.8 % (19.7-50.0); TOTAL IRON BINDING CAPACITY 232 UG/DL (250-450)
[2019-03-06] MEDS: QUEtiapine FUMARATE 100 MG TAB PO SCH (22:29)
[2019-03-06] MEDS: traZODone 100 MG TAB PO SCH (22:29)
[2019-03-06] MEDS: levETIRAcetam 250MG TABLET (KEPPRA) PO SCH (22:30)
[2019-03-06] MEDS: lamoTRIgine 100MG TAB PO SCH (22:30)
[2019-03-06] MEDS: PHENobarbitaL 30 MG TAB PO SCH (22:30)
[2019-03-06] MEDS: DONEPEZIL 5 MG TAB PO SCH (22:30)
[2019-03-06] MEDS: SENNA 8.6 MG TAB (SENOKOT) PO SCH (22:31)
[2019-03-06] MEDS: TAMSULOSIN 0.4 MG CAP PO SCH (22:31)
[2019-03-06] MEDS: PHENYTOIN ER 100 MG CAP PO SCH (22:31)
[2019-03-06] MEDS: CALCIUM/VITAMIN D 500 MG TAB PO SCH (22:32)
[2019-03-06] MEDS: QUEtiapine FUMARATE 50 MG TAB PO SCH (22:32)
[2019-03-06] MEDS: SIMVASTATIN 20 MG TAB PO SCH (22:32)
[2019-03-06] MEDS: hydrOXYzine 25 MG TAB PO SCH (22:35)
[2019-03-06] MEDS: VANCOMYCIN HCL 1,000 MG, VIAL MATE ADAPTER 1 EACH in D5W 250 ML IV SCH (22:35)
[2019-03-07 06:00] VITALS: BP 133/79
[2019-03-07] MEDS: VANCOMYCIN HCL 1,000 MG, VIAL MATE ADAPTER 1 EACH in D5W 250 ML IV SCH ×3 (06:24→22:35)
[2019-03-07 07:18] LABS: HEMATOCRIT 33.4 % (42.0-52.0); MEAN CORPUSCULAR HEMOGLOBIN 29.7 pg (27.0-33.0); MEAN CORPUSCULAR HGB CONC 32.9 g/dl (32.0-36.5); MEAN CORPUSCULAR VOLUME 90.3 fl (80.0-96.0); PLATELET COUNT, AUTOMATED 201 10^3/uL (150-450); WHITE BLOOD COUNT 10.4 10^3/uL (4.0-10.0)
[2019-03-07 07:39] LABS: BLOOD UREA NITROGEN 19 MG/DL (7-18); CALCIUM LEVEL 9.1 MG/DL (8.8-10.2); CARBON DIOXIDE LEVEL 32 MEQ/L (21-32); CHLORIDE LEVEL 101 MEQ/L (98-107); CREATININE FOR GFR 0.79 MG/DL (0.70-1.30); GLOMERULAR FILTRATION RATE > 60.0 (>49); GLUCOSE, FASTING 130 MG/DL (70-100); POTASSIUM SERUM 4.2 MEQ/L (3.5-5.1); SODIUM LEVEL 137 MEQ/L (136-145)
[2019-03-07] MEDS: PHENYTOIN ER 100 MG CAP PO SCH ×3 (09:30→22:35)
[2019-03-07] MEDS: QUEtiapine FUMARATE 100 MG TAB PO SCH ×2 (09:32→22:37)
[2019-03-07] MEDS: PHENobarbitaL 30 MG TAB PO SCH ×2 (09:33→22:37)
[2019-03-07] MEDS: QUEtiapine FUMARATE 50 MG TAB PO SCH ×2 (09:33→22:37)
[2019-03-07] MEDS: CALCIUM/VITAMIN D 500 MG TAB PO SCH ×3 (09:33→22:38)
[2019-03-07] MEDS: PARoxetine 20 MG TAB PO SCH ×2 (09:33→09:34)
[2019-03-07] MEDS: levETIRAcetam 250MG TABLET (KEPPRA) PO SCH ×2 (09:33→22:36)
[2019-03-07] MEDS: hydrOXYzine 25 MG TAB PO SCH ×4 (09:34→22:38)
[2019-03-07] MEDS: lamoTRIgine 100MG TAB PO SCH ×2 (09:34→22:36)
[2019-03-07] MEDS: MUPIROCIN 2% OINT 22 GM TUBE TOP SCH ×2 (09:35→22:39)
[2019-03-07] MEDS: MIRALAX *UNIT DOSE* 17GM PACKET PO SCH (09:38)
[2019-03-07] MEDS: FLUTICASONE PROP 0.05% NASAL SPRAY 16 GM (FLONASE) SCH (09:38)
--- NOTE | 2019-03-07 11:57 | IPNPDOC ---
Text Note Date of Service The patient was seen on 03/07/19. NOTE Subjective: No any acute events overnight. No any seizures activity. Patient is afebrile, more awake and alert Objective: VITAL SIGNS: Please see below. GENERAL APPEARANCE: Well-nourished, well-developed, not in apparent distress HEENT: Wearing a helmet on his head, mucous members are moist and pink, CARDIOVASCULAR: Regular rate and rhythm. No murmurs, rubs or gallops LUNGS: Clear to auscultation bilaterally on room air ABDOMEN: Soft and nontender on palpation MUSCULOSKELETAL: Range of motion intact in all 4 extremities INTEGUMENT: red round lesion on his back 5x7 CM indurated w/o pus and a larger, raised lesion 3X4 cm at the left posterior lateral aspect of the left upper leg. NEUROLOGICAL: Nonfocal, no nuchal rigidity, cranial nerves from 2-12 intact PSYCHIATRIC: Alert and oriented to person, follows simple command 63-year-old male with past medical history of distant developmental disability, hydrocephalus, seizures, COPD, sleep apnea, BPH, chronic hypertension, dyslipidemia, pituitary tumor, and dyslipidemia admitted for management of skin lesions. Recent outbreak MRSA skin infection in the [place] [facility] facility. Continue IV vancomycin. Skin abscesses/cellulitis Patient is afebrile, doesn't have leukocytosis Appreciate agree with surgeon consult Most likely he has abscess of the left thigh and it needs to be drained Continue IV vancomycin. Recent outbreak MRSA skin infection in the [place] [facility] Await wound culture Continue with topical antibiotic Level of phenytoin and phenobarbital with normal limit Seizure disorder Continue home antiepileptic medications Normocytic normochromic anemia Most likely secondary to anemia of chronic diseases Low iron level and TIBC Iron supplementation Await B12, folate level Developmental disability Follow-up precautions/bed alarm / resume home meds BPH Resume home meds Chronic hypertension Blood pressures under control Resume home meds Dyslipidemia. Resume home meds Hx of CVAs Resume home meds DVT prophylaxis with Lovenox. VS,Fishbone, I+O VS, Fishbone, I+O Laboratory Tests 03/06/19 19:49 03/07/19 07:02 Vital Signs Date Time Temp Pulse Resp B/P (MAP) Pulse Ox O2 Delivery O2 Flow Rate FiO2 03/07/19 06:00 98.9 76 18 133/79 (97) 94 Room Air I&O- Last 24 Hours up to 6 AM 03/07/19 05:59 Intake Total 395 ml Output Total 375 ml Balance 20 ml RASHAWN JACOBSON DO Mar 07, 2019 11:57
[2019-03-07 14:00] VITALS: BP 131/77
[2019-03-07 14:00] LABS: BLOOD UREA NITROGEN 18 MG/DL (7-18); CALCIUM LEVEL 8.7 MG/DL (8.8-10.2); CARBON DIOXIDE LEVEL 35 MEQ/L (21-32); CHLORIDE LEVEL 98 MEQ/L (98-107); CREATININE FOR GFR 0.71 MG/DL (0.70-1.30); GLOMERULAR FILTRATION RATE > 60.0 (>49); GLUCOSE, FASTING 112 MG/DL (70-100); POTASSIUM SERUM 4.1 MEQ/L (3.5-5.1); SODIUM LEVEL 137 MEQ/L (136-145)
[2019-03-07] MEDS: clonazePAM 0.5 MG TAB PO SCH ×2 (14:08→17:10)
[2019-03-07 22:00] VITALS: BP 129/76
[2019-03-07] MEDS: ENOXAPARIN 40 MG/0.4 ML SYRINGE (J1650) SC SCH (22:36)
[2019-03-07] MEDS: traZODone 100 MG TAB PO SCH (22:36)
[2019-03-07] MEDS: SENNA 8.6 MG TAB (SENOKOT) PO SCH (22:37)
[2019-03-07] MEDS: TAMSULOSIN 0.4 MG CAP PO SCH (22:38)
[2019-03-07] MEDS: DONEPEZIL 5 MG TAB PO SCH (22:38)
[2019-03-07] MEDS: SIMVASTATIN 20 MG TAB PO SCH (22:39)
[2019-03-08 06:00] VITALS: BP 127/66
[2019-03-08] MEDS: VANCOMYCIN HCL 1,000 MG, VIAL MATE ADAPTER 1 EACH in D5W 250 ML IV SCH (06:18)
[2019-03-08] MEDS: QUEtiapine FUMARATE 100 MG TAB PO SCH ×2 (08:58→21:16)
[2019-03-08] MEDS: PHENYTOIN ER 100 MG CAP PO SCH ×3 (08:58→21:16)
[2019-03-08] MEDS: CALCIUM/VITAMIN D 500 MG TAB PO SCH ×3 (08:58→21:15)
[2019-03-08] MEDS: PHENobarbitaL 30 MG TAB PO SCH ×2 (08:58→21:21)
[2019-03-08] MEDS: hydrOXYzine 25 MG TAB PO SCH ×4 (08:58→21:15)
[2019-03-08] MEDS: PARoxetine 20 MG TAB PO SCH ×2 (08:58→08:59)
[2019-03-08] MEDS: lamoTRIgine 100MG TAB PO SCH ×2 (08:59→21:14)
[2019-03-08] MEDS: FERROUS GLUCONATE 324 MG TAB PO SCH (08:59)
[2019-03-08] MEDS: levETIRAcetam 250MG TABLET (KEPPRA) PO SCH ×2 (08:59→21:14)
[2019-03-08] MEDS: MUPIROCIN 2% OINT 22 GM TUBE TOP SCH ×2 (09:00→22:20)
[2019-03-08] MEDS: QUEtiapine FUMARATE 50 MG TAB PO SCH ×2 (09:00→21:14)
[2019-03-08] MEDS ORDERED: ACETAMINOPHEN TAB 650MG DOSE (2X325MG) PO ONE (09:00)
[2019-03-08] MEDS: FLUTICASONE PROP 0.05% NASAL SPRAY 16 GM (FLONASE) SCH (09:02)
[2019-03-08] MEDS ORDERED: LIDOCAINE W/EPINEPHRINE 1% 20ML VIAL SC ONE (09:30)
[2019-03-08 10:45] LABS: FOLATE 3.8 NG/ML (>5.4)
--- NOTE | 2019-03-08 11:34 | ROOPDOC ---
[facility] Report Of Operation Report of Operation DATE OF PROCEDURE: 03/08/19 PREPROCEDURE DIAGNOSES: multiple follicular abscess mid back, right buttock, left thigh. POSTPROCEDURE DIAGNOSES: same PROCEDURE: incision and drainage, follicular abscess at the mid back, right buttock, SURGEON: Sarabjit Munoz MD PROFESSOR OF APOLOGETICS: ANESTHESIA: local anesthesia using 1% lidocaine with epinephrine. ESTIMATED BLOOD LOSS: Approximately 10 mL. COMPLICATIONS: none. PROCEDURE NOTE: Patient is currently admitted in the ICU. He was noted to have multiple sites of small areas of abscess was likely follicular abscesses. The biggest of which is at the mid back, right thigh and a smaller one in the left thigh area. There is limited erythema surrounding the follicular abscesses. Abscess to incise and drain this areas. Consent was obtained via phone call to his father. He remained in the room. A surgical timeout was performed. He was placed on a left lateral decubitus position. The skin surrounding the mid back and right upper buttock area was prepped with Betadine and sterile drapes were placed. This was infiltrated with local anesthesia. The mid back wound has previously been I&D but there still remains somewhat bulky induration roughly about 2 cm size more inferiorly to the site of drainage. A cruciate skin incision was created and this is deepened through to the skin and subcutaneous tissue and a piece of skin was removed. The wound cavity was probed with drainage of foul-smelling purulent material. We continued to palpate around the soft tissue from this wound opening and probed this with a hemostat with resulting drainage of abscesses. His a stent temporarily packed with 4 x 4 gauze. We then turned attention to the right upper gluteal area and in similar fashion this was drained with a smaller month of purulent material drained over this area. The wound cavities within packed with 1/2 inch iodophor gauze and bulky gauze dressings placed on top of the incision. Patient tolerated the procedure well. SARABJIT MUNOZ MD Mar 08, 2019 11:34
[2019-03-08] MEDS: MIRALAX *UNIT DOSE* 17GM PACKET PO SCH (12:39)
[2019-03-08] MEDS: clonazePAM 0.5 MG TAB PO SCH ×2 (12:39→16:54)
[2019-03-08 13:58] LABS: BLOOD UREA NITROGEN 14 MG/DL (7-18); CALCIUM LEVEL 8.8 MG/DL (8.8-10.2); CARBON DIOXIDE LEVEL 33 MEQ/L (21-32); CHLORIDE LEVEL 102 MEQ/L (98-107); CREATININE FOR GFR 0.76 MG/DL (0.70-1.30); GLOMERULAR FILTRATION RATE > 60.0 (>49); GLUCOSE, FASTING 132 MG/DL (70-100); POTASSIUM SERUM 3.9 MEQ/L (3.5-5.1); SODIUM LEVEL 138 MEQ/L (136-145); VANCOMYCIN LEVEL TROUGH 23.5 UG/ML (10.0-20.0)
[2019-03-08 14:00] VITALS: BP 126/74
--- NOTE | 2019-03-08 14:18 | PHACANCOPD ---
PHARMACY VANCOMYCIN DOSING Pt Demographics Demographics Patient Age:63 , Weight:101.800 , Gender: male Adjusted Body Weight Date: 03/06/19, Adjusted Body Weight: Kg Events Past 24 Hours Events Past 24 Hours: NO: Dialysis, Diuretic Therapy, Change in CrCl, Fever, Elevation in WBC, Pending Diagnostics, Pending Procedures, Other Vancomycin Vancomycin Target Ranges: 15-20 mcg/ml Vancomycin Load Y/N: Yes Load Dose Date Time Vancomycin Load Dose: 2000mg Date: 03-06 Time: 2200 Vancomycin Dose Date: 03/06/19. Current Vancomycin Dose: [1000mg q8h] Intermittent Dosing?: No Labs Labs Vital Signs Label Value Date Time Patient Temperature 97.1 degrees F 03/08/19 0600 Temperature Source Oral 03/08/19 0600 Patient Temperature 98.1 degrees F 03/07/19 2200 Temperature Source Oral 03/07/19 2200 Patient Temperature 98.0 degrees F 03/07/19 1400 Temperature Source Oral 03/07/19 1400 Item Value Date Time White Blood Count 10.4 10^3/uL H 03/07/19 0702 White Blood Count 12.4 10^3/uL H 03/06/19 1949 Creatinine 0.76 MG/DL 03/08/19 1320 Creatinine 0.71 MG/DL 03/07/19 1301 Creatinine 0.79 MG/DL 03/07/19 0702 Vancomycin Level Trough 23.5 UG/ML H 03/08/19 1320 Vancomycin Level Trough 17.0 UG/ML 03/07/19 1301 Micro Microbiology 03/08/19 Gram Stain - Final, Resulted 03/08/19 Wound Culture, Resulted Pending 03/08/19 Gram Stain - Final, Resulted 03/08/19 Wound Culture, Resulted Pending 03/06/19 Gram Stain - Final, Resulted 03/06/19 Wound Culture - Preliminary, Resulted Staphylococcus Aureus 03/06/19 Blood Culture - Preliminary, Resulted No growth after 24 hours . All specim... 03/06/19 Blood Culture - Preliminary, Resulted No growth after 24 hours . All specim... Creatinine Clearance Date:03/06/19. Creatinine Clearance: [~85]. Pending Labs Trough 11-10 @1300 Assessment and Plan Maintaining Current Dose?: No Reason for dose change: Trough too high Pharmacist Note Pharmacist Note 03/08/19: Trough today @1320 before next dose at 1400 resulted at 23.5mcg/ml. This trough is above our goal. I am going to hold the dose 4 hours and restart at Vanco 1250mg IV Q12H. This should allow the patient more time between doses to clear. I will schedule a trough to ensure appropriate dosing. We will continue to monitor and adjust dose as needed. Date: 03/06/19. Pharmacist note:Will monitor and make adjustments as needed. [facility] Mar 08, 2019 14:18
[2019-03-08] MEDS: VANCOMYCIN HCL 750 MG, VIAL MATE ADAPTER 1 EACH in D5W 250 ML IV SCH (18:07)
--- NOTE | 2019-03-08 18:19 | IPNPDOC ---
Text Note Date of Service The patient was seen on 03/08/19. NOTE SUBJECTIVE: Patient is a developmentally disabled gentleman, who resides in a long-term, with reported MRSA outbreak. Presenting with multiple abscess on his back, left buttocks and right hip. He was examined in bed this morning, able to complete certain phrases, repeatedly professes his love for people OBJECTIVE: GENERAL APPEARANCE: Elderly developmental disabled gentleman, wearing a helmet, resting comfortably in bed SKIN: Warm, well perfused. Multiple skin abscesses noted on patient. One on patient's mid thoracic area, although one on patient's left buttock, and one on patient's right thigh, all 3 abscesses are indurated, erythematous, and emanating malodorous yellow drainage LUNGS: Clear to auscultation bilaterally. HEART: Normal S1, S2. No murmurs, no rubs, no gallops ABDOMEN: Soft. No masses. Bowel sounds are present. EXTREMITIES: Moves all extremities equally. No gross deformities. PULSES: 2+ upper and lower extremity . LABORATORY DATA: Please see below. ASSEMENT AND PLAN 63-year-old male with past medical history of distant developmental disability, hydrocephalus, seizures, COPD, sleep apnea, BPH, chronic hypertension, dyslipidemia, pituitary tumor, and dyslipidemia admitted for management of multiple skin lesions. Recent outbreak MRSA skin infection in the care home facility. Continue IV vancomycin. #Multiple skin abscesses/cellulitis -Patient remains afebrile, hemodynamically stable, -This morning patient was noted to have a downtrending leukocytosis. -Dr. Munoz, surgeon, was consulted. He performed 3 abscesses and drainage with wound packing -Abscess cultured ordered -Preliminary cultures positive for staph aureus, on left buttocks -Will await other cultures -Continue IV vancomycin. Recent outbreak MRSA skin infection in the care home facility Continue with topical antibiotic #Seizure disorder -Continue home antiepileptic medications -Level of phenytoin and phenobarbital with normal limit -No seizure activity reported. Since admission #Normocytic normochromic anemia -Most likely secondary to anemia of chronic diseases -Low iron level and TIBC -Iron supplementation -Low B12, will replete #Developmental disability Follow-up precautions/bed alarm / resume home meds #BPH Resume home meds #Chronic hypertension Blood pressures under control Resume home meds #Dyslipidemia. Resume home meds #Hx of CVAs Resume home meds #DVT prophylaxis with Lovenox. Attending Physician Addendum; I have independently interviewed and examined this patient at the bedside, and agree with the documented physical findings and management plan as written above. Pt's questions have been satisfactoriy answered. VS,Fishbone, I+O VS, Fishbone, I+O Laboratory Tests 03/08/19 13:20 Vital Signs Date Time Temp Pulse Resp B/P (MAP) Pulse Ox O2 Delivery O2 Flow Rate FiO2 03/08/19 14:00 97.6 72 20 126/74 (91) 92 Room Air I&O- Last 24 Hours up to 6 AM 03/08/19 06:00 Intake Total 980 ml Output Total 1250 ml Balance -270 ml GME ATTESTATION GME ATTESTATION My faculty preceptor for this patient encounter was physically present during the encounter and was fully available. All aspects of the patient interview, examination, medical decision making process, and medical care plan development were reviewed and approved by the faculty preceptor. The faculty preceptor is aware and concurs with the plan as stated in the body of this note and will attest to such by his/her cosignature. RADHA RODRIGUEZ DO Mar 08, 2019 18:19 OZZIE MACIEL MD Mar 09, 2019 10:57
[2019-03-08] MEDS: VANCOMYCIN HCL 500 MG in D5W MINI-BAG PLUS 100 ML IV SCH (19:44)
[2019-03-08] MEDS: traZODone 100 MG TAB PO SCH (21:14)
[2019-03-08] MEDS: DONEPEZIL 5 MG TAB PO SCH (21:15)
[2019-03-08] MEDS: SIMVASTATIN 20 MG TAB PO SCH (21:15)
[2019-03-08] MEDS: TAMSULOSIN 0.4 MG CAP PO SCH (21:15)
[2019-03-08] MEDS: ENOXAPARIN 40 MG/0.4 ML SYRINGE (J1650) SC SCH (21:16)
[2019-03-09 06:00] VITALS: BP 138/73
[2019-03-09] MEDS: VANCOMYCIN HCL 750 MG, VIAL MATE ADAPTER 1 EACH in D5W 250 ML IV SCH (06:02)
[2019-03-09 07:34] LABS: HEMATOCRIT 36.8 % (42.0-52.0); HEMOGLOBIN 11.7 g/dl (13.5-17.5); MEAN CORPUSCULAR HEMOGLOBIN 29.5 pg (27.0-33.0); MEAN CORPUSCULAR HGB CONC 31.8 g/dl (32.0-36.5); MEAN CORPUSCULAR VOLUME 92.7 fl (80.0-96.0); PLATELET COUNT, AUTOMATED 236 10^3/uL (150-450); RED BLOOD COUNT 3.97 10^6/uL (4.30-6.10); WHITE BLOOD COUNT 6.8 10^3/uL (4.0-10.0)
[2019-03-09] MEDS: FERROUS GLUCONATE 324 MG TAB PO SCH (08:22)
[2019-03-09] MEDS: VANCOMYCIN HCL 500 MG in D5W MINI-BAG PLUS 100 ML IV SCH (08:22)
[2019-03-09] MEDS: CYANOCOBALAMIN 250 MCG TABLET PO SCH (08:22)
[2019-03-09] MEDS: PARoxetine 20 MG TAB PO SCH ×2 (08:23)
[2019-03-09] MEDS: levETIRAcetam 250MG TABLET (KEPPRA) PO SCH ×2 (08:23→20:38)
[2019-03-09] MEDS: hydrOXYzine 25 MG TAB PO SCH ×4 (08:24→20:42)
[2019-03-09] MEDS: MIRALAX *UNIT DOSE* 17GM PACKET PO SCH (08:24)
[2019-03-09] MEDS: PHENYTOIN ER 100 MG CAP PO SCH ×3 (08:24→20:43)
[2019-03-09] MEDS: CALCIUM/VITAMIN D 500 MG TAB PO SCH ×3 (08:24→20:40)
[2019-03-09] MEDS: lamoTRIgine 100MG TAB PO SCH ×2 (08:24→20:38)
[2019-03-09] MEDS: QUEtiapine FUMARATE 50 MG TAB PO SCH ×2 (08:24→20:42)
[2019-03-09] MEDS: PHENobarbitaL 30 MG TAB PO SCH ×2 (08:30→20:41)
[2019-03-09] MEDS: QUEtiapine FUMARATE 100 MG TAB PO SCH ×2 (08:30→20:42)
[2019-03-09] MEDS: FLUTICASONE PROP 0.05% NASAL SPRAY 16 GM (FLONASE) SCH (08:30)
[2019-03-09 09:25] LABS: BLOOD UREA NITROGEN 12 MG/DL (7-18); CALCIUM LEVEL 8.9 MG/DL (8.8-10.2); CARBON DIOXIDE LEVEL 30 MEQ/L (21-32); CHLORIDE LEVEL 106 MEQ/L (98-107); CREATININE FOR GFR 0.71 MG/DL (0.70-1.30); GLOMERULAR FILTRATION RATE > 60.0 (>49); GLUCOSE, FASTING 91 MG/DL (70-100); POTASSIUM SERUM 4.4 MEQ/L (3.5-5.1); SODIUM LEVEL 141 MEQ/L (136-145)
--- NOTE | 2019-03-09 11:31 | IPNPDOC ---
Text Note Date of Service The patient was seen on 03/09/19. NOTE SUBJECTIVE: Patient is a developmentally disabled gentleman, who [facility], with reported MRSA outbreak. Presenting with multiple abscess on his back, left buttocks and right hip. He is status post 1 day from an incision and drainage. He is afebrile. With a down trending white count. One wound culture is positive for MRSA. He was examined in bed this morning, he was sitting comfortably in chair, with a helmet on, yelling random phrases. His bandages have been freshly cleaned. No signs of infection OBJECTIVE: GENERAL APPEARANCE: Elderly developmental disabled gentleman, wearing a helmet, sitting comfortably in the chair, has no complaints of pain SKIN: Warm, well perfused. .multiple follicular abscess mid back, right buttock, left thigh. Not covered with clean dressing, no purulent drainage HEART: Normal S1, S2. No murmurs, no rubs, no gallops EXTREMITIES: Moves all extremities equally. No gross deformities. PULSES: 2+ upper and lower extremity . LABORATORY DATA: Please see below. ASSEMENT AND PLAN 63-year-old male with past medical history of distant developmental disability, hydrocephalus, seizures, COPD, sleep apnea, BPH, chronic hypertension, dyslipidemia, pituitary tumor, and dyslipidemia admitted for management of multiple skin lesions. Recent outbreak MRSA skin infection in the [facility] facility. Continue IV vancomycin. #Multiple skin abscesses/cellulitis -Patient remains afebrile, hemodynamically stable, -Status post incision and drainage for multiple follicular abscess mid back, right buttock, left thigh. -Abscess cultured ordered (paroxysmal is positive for staph aureus, methicillin- resistant, other culture is positive for few gram-positive cocci in clusters) -Continue IV vancomycin. Recent outbreak MRSA skin infection in the [facility] facility -Monitor for clinical improvement. and laboratory improvement #Seizure disorder -Continue home antiepileptic medications -Level of phenytoin and phenobarbital with normal limit -No seizure activity reported. Since admission #Normocytic normochromic anemia -Most likely secondary to anemia of chronic diseases -Low iron level and TIBC -Iron supplementation -Low B12, will replete #Developmental disability Follow-up precautions/bed alarm / resume home meds #BPH Resume home meds #Chronic hypertension Blood pressures under control Resume home meds #Dyslipidemia. Resume home meds #Hx of CVAs Resume home meds #DVT prophylaxis with Lovenox. ATTENDING NOTE I have personally evaluated and examined the patient. Discussed with residents and student regarding plan of care and agree with the above assessment and plan. Patient has been periodically agitated. Ripped out IV and unable to re- establish. Transitioned from vancomycin to Bactrim. Placed on 1:1 due to agitation. VS,Fishbone, I+O VS, Fishbone, I+O Laboratory Tests 03/08/19 13:20 03/09/19 07:18 03/09/19 07:19 Vital Signs Date Time Temp Pulse Resp B/P (MAP) Pulse Ox O2 Delivery O2 Flow Rate FiO2 03/09/19 06:00 98.0 65 18 138/73 (94) 93 Room Air I&O- Last 24 Hours up to 6 AM 03/09/19 06:00 Intake Total 1110 ml Output Total 650 ml Balance 460 ml GME ATTESTATION GME ATTESTATION My faculty preceptor for this patient encounter was physically present during the encounter and was fully available. All aspects of the patient interview, examination, medical decision making process, and medical care plan development were reviewed and approved by the faculty preceptor. The faculty preceptor is aware and concurs with the plan as stated in the body of this note and will attest to such by his/her cosignature. RADHA RODRIGUEZ DO Mar 09, 2019 11:31 AMANDA RAYA MD Mar 09, 2019 19:08
[2019-03-09] MEDS: clonazePAM 0.5 MG TAB PO SCH ×2 (11:54→15:52)
[2019-03-09 12:30] VITALS: BP 140/70
[2019-03-09 14:00] VITALS: BP 124/65
[2019-03-09 18:00] VITALS: BP 130/75
[2019-03-09] MEDS ORDERED: HALOPERIDOL 5 MG/ML VIAL (J1630) IM PRN (18:15)
[2019-03-09] MEDS: TAMSULOSIN 0.4 MG CAP PO SCH (20:39)
[2019-03-09] MEDS: SENNA 8.6 MG TAB (SENOKOT) PO SCH (20:39)
[2019-03-09] MEDS: BACTRIM 160MG/800MG DS TAB PO SCH (20:39)
[2019-03-09] MEDS: traZODone 100 MG TAB PO SCH (20:40)
[2019-03-09] MEDS: DONEPEZIL 5 MG TAB PO SCH (20:40)
[2019-03-09] MEDS: SIMVASTATIN 20 MG TAB PO SCH (20:40)
[2019-03-09] MEDS: ENOXAPARIN 40 MG/0.4 ML SYRINGE (J1650) SC SCH (20:43)
[2019-03-09 22:00] VITALS: BP 125/76
[2019-03-10 06:00] VITALS: BP 132/62
--- NOTE | 2019-03-10 06:20 | ECGEPIP ---
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
[2019-03-10 08:39] LABS: HEMATOCRIT 35.4 % (42.0-52.0); HEMOGLOBIN 11.4 g/dl (13.5-17.5); MEAN CORPUSCULAR HEMOGLOBIN 29.2 pg (27.0-33.0); MEAN CORPUSCULAR HGB CONC 32.2 g/dl (32.0-36.5); MEAN CORPUSCULAR VOLUME 90.8 fl (80.0-96.0); PLATELET COUNT, AUTOMATED 230 10^3/uL (150-450)
[2019-03-10 09:03] LABS: BLOOD UREA NITROGEN 10 MG/DL (7-18); CARBON DIOXIDE LEVEL 29 MEQ/L (21-32); CHLORIDE LEVEL 106 MEQ/L (98-107); CREATININE FOR GFR 0.81 MG/DL (0.70-1.30); GLOMERULAR FILTRATION RATE > 60.0 (>49); GLUCOSE, FASTING 89 MG/DL (70-100); SODIUM LEVEL 140 MEQ/L (136-145)
[2019-03-10] MEDS: MIRALAX *UNIT DOSE* 17GM PACKET PO SCH (10:31)
[2019-03-10] MEDS: CYANOCOBALAMIN 250 MCG TABLET PO SCH (10:31)
[2019-03-10] MEDS: PHENYTOIN ER 100 MG CAP PO SCH ×3 (10:31→21:34)
[2019-03-10] MEDS: clonazePAM 0.5 MG TAB PO SCH ×2 (10:31→16:43)
[2019-03-10] MEDS: FERROUS GLUCONATE 324 MG TAB PO SCH (10:32)
[2019-03-10] MEDS: QUEtiapine FUMARATE 50 MG TAB PO SCH ×2 (10:32→21:34)
[2019-03-10] MEDS: levETIRAcetam 250MG TABLET (KEPPRA) PO SCH ×2 (10:32→21:34)
[2019-03-10] MEDS: hydrOXYzine 25 MG TAB PO SCH ×4 (10:32→21:35)
[2019-03-10] MEDS: PARoxetine 20 MG TAB PO SCH ×2 (10:32→10:35)
[2019-03-10] MEDS: CALCIUM/VITAMIN D 500 MG TAB PO SCH ×3 (10:32→21:36)
[2019-03-10] MEDS: BACTRIM 160MG/800MG DS TAB PO SCH ×2 (10:33→21:34)
[2019-03-10] MEDS: lamoTRIgine 100MG TAB PO SCH ×2 (10:33→21:33)
[2019-03-10] MEDS: FLUTICASONE PROP 0.05% NASAL SPRAY 16 GM (FLONASE) SCH (10:36)
[2019-03-10] MEDS: PHENobarbitaL 30 MG TAB PO SCH ×2 (10:44→21:35)
[2019-03-10] MEDS: QUEtiapine FUMARATE 100 MG TAB PO SCH ×2 (10:44→21:34)
[2019-03-10] MEDS ORDERED: ANEXSIA, NORCO 7.5MG/325MG TABLET(HYDROCODONE/APAP) PO SCH ×2 (11:00→12:00)
--- NOTE | 2019-03-10 11:08 | IPNPDOC ---
Text Note Date of Service The patient was seen on 03/10/19. NOTE SUBJECTIVE: Patient is a developmentally disabled gentleman, who resides in a intermediate, with reported MRSA outbreak. Presenting with multiple abscess on his back, left buttocks and right hip. He is status post 1 day from an incision and drainage. He is afebrile. With a down trending white count. One wound culture is positive for MRSA. Late evening last night, patient became agitated, could not be redirected, a sitter was placed with pt. This is somewhat typical of patient's baseline at the intermediate. OBJECTIVE: GENERAL APPEARANCE: Elderly male, sleeping comfortably SKIN: Warm, well perfused. .multiple follicular abscess mid back, right buttock, left thigh. Currently covered with dressing, no purulent drainage LUNGS: CTAB HEART: Normal S1, S2. No murmurs, no rubs, no gallops EXTREMITIES: Moves all extremities equally. No gross deformities. PULSES: 2+ upper and lower extremity . LABORATORY DATA: Please see below. ASSEMENT AND PLAN 63-year-old male with past medical history of distant developmental disability, hydrocephalus, seizures, COPD, sleep apnea, BPH, chronic hypertension, dyslipidemia, pituitary tumor, and dyslipidemia admitted for management of multiple skin lesions. Recent outbreak MRSA skin infection in the long-term facility. Continue IV vancomycin. #Multiple skin abscesses/cellulitis -Patient remains afebrile, hemodynamically stable, -No leukocytosis -Status post incision and drainage for multiple follicular abscess mid back, right buttock, left thigh. -Instructions to clean wound, and pack for week. -Abscess cultured ordered (paroxysmal is positive for staph aureus, methicillin- resistant, other culture is positive for few gram-positive cocci in clusters) -Started on Bactrim double strength 1 tab twice a day, -Monitor for clinical improvement. and laboratory improvement #Agitation secondary to pain, secondary to developmental disability -This is somewhat his typical normal at the intermediate -Will avoid antipsychotics for behavior control -Patient has a one-to-one sitter -Started patient on Clarence for pain control, 1 tab q6 #Seizure disorder -Continue home antiepileptic medications -Level of phenytoin and phenobarbital with normal limit -No seizure activity reported. Since admission #Normocytic normochromic anemia -Most likely secondary to anemia of chronic diseases -Low iron level and TIBC -Iron supplementation -Low B12, will replete #Developmental disability Follow-up precautions/bed alarm / resume home meds #BPH Resume home meds #Chronic hypertension Blood pressures under control Resume home meds #Dyslipidemia. Resume home meds #Hx of CVAs Resume home meds #DVT prophylaxis with Lovenox. Disposition. Patient can be discharged tomorrow, on tramadol for pain control, JR will need the hospital to provide packing for his wounds until they are able to purchase the own., provide patient with a prescription to change dressing and pack dressing for 1 week. And then continued to change dressings daily. Patient needs to follow-up with Dr. Munoz, surgeon, in 2 weeks. ATTENDING NOTE I have personally evaluated and examined the patient. Discussed with residents and student regarding plan of care and agree with the above assessment and plan. VS,Fishbone, I+O VS, Fishbone, I+O Laboratory Tests 03/10/19 08:27 Vital Signs Date Time Temp Pulse Resp B/P (MAP) Pulse Ox O2 Delivery O2 Flow Rate FiO2 03/10/19 06:00 97.3 66 17 132/62 (85) 92 Room Air 03/09/19 12:30 0.0 I&O- Last 24 Hours up to 6 AM 03/10/19 06:00 Intake Total 1915 ml Output Total 500 ml Balance 1415 ml GME ATTESTATION GME ATTESTATION My faculty preceptor for this patient encounter was physically present during the encounter and was fully available. All aspects of the patient interview, examination, medical decision making process, and medical care plan development were reviewed and approved by the faculty preceptor. The faculty preceptor is aware and concurs with the plan as stated in the body of this note and will attest to such by his/her cosignature. RADHA RODRIGUEZ DO Mar 10, 2019 11:08 AMANDA RAYA MD Mar 10, 2019 14:39
[2019-03-10 14:00] VITALS: BP 131/75
[2019-03-10] MEDS ORDERED: TRAM50TA2 PO (14:43)
[2019-03-10] MEDS ORDERED: traMADol 50 MG TAB PO PRN (15:15)
[2019-03-10] MEDS ORDERED: SULF1TAB93 PO (17:11)
[2019-03-10] MEDS: ENOXAPARIN 40 MG/0.4 ML SYRINGE (J1650) SC SCH (21:33)
[2019-03-10] MEDS: traZODone 100 MG TAB PO SCH (21:34)
[2019-03-10] MEDS: TAMSULOSIN 0.4 MG CAP PO SCH (21:35)
[2019-03-10] MEDS: DONEPEZIL 5 MG TAB PO SCH (21:35)
[2019-03-10] MEDS: SENNA 8.6 MG TAB (SENOKOT) PO SCH (21:36)
[2019-03-10] MEDS: SIMVASTATIN 20 MG TAB PO SCH (21:36)
[2019-03-10 22:00] VITALS: BP 142/68
[2019-03-11 06:00] VITALS: BP 123/62
[2019-03-11 06:05] LABS: HEMATOCRIT 37.3 % (42.0-52.0); HEMOGLOBIN 11.9 g/dl (13.5-17.5); MEAN CORPUSCULAR HEMOGLOBIN 29.1 pg (27.0-33.0); MEAN CORPUSCULAR HGB CONC 31.9 g/dl (32.0-36.5); MEAN CORPUSCULAR VOLUME 91.2 fl (80.0-96.0); PLATELET COUNT, AUTOMATED 208 10^3/uL (150-450); RED BLOOD COUNT 4.09 10^6/uL (4.30-6.10); WHITE BLOOD COUNT 5.4 10^3/uL (4.0-10.0)
[2019-03-11 06:29] LABS: BLOOD UREA NITROGEN 12 MG/DL (7-18); CALCIUM LEVEL 8.6 MG/DL (8.8-10.2); CARBON DIOXIDE LEVEL 32 MEQ/L (21-32); CHLORIDE LEVEL 105 MEQ/L (98-107); CREATININE FOR GFR 0.88 MG/DL (0.70-1.30); GLOMERULAR FILTRATION RATE > 60.0 (>49); GLUCOSE, FASTING 95 MG/DL (70-100); POTASSIUM SERUM 4.2 MEQ/L (3.5-5.1); SODIUM LEVEL 141 MEQ/L (136-145)
[2019-03-11] MEDS ORDERED: FINASTERIDE 5 MG TAB PO SCH (09:00)
[2019-03-11] MEDS: PHENobarbitaL 30 MG TAB PO SCH (10:07)
[2019-03-11] MEDS: QUEtiapine FUMARATE 100 MG TAB PO SCH (10:07)
[2019-03-11] MEDS: PARoxetine 20 MG TAB PO SCH ×2 (10:07→10:08)
[2019-03-11] MEDS: QUEtiapine FUMARATE 50 MG TAB PO SCH (10:08)
[2019-03-11] MEDS: CYANOCOBALAMIN 250 MCG TABLET PO SCH (10:08)
[2019-03-11] MEDS: levETIRAcetam 250MG TABLET (KEPPRA) PO SCH (10:08)
[2019-03-11] MEDS: BACTRIM 160MG/800MG DS TAB PO SCH (10:08)
[2019-03-11] MEDS: PHENYTOIN ER 100 MG CAP PO SCH (10:09)
[2019-03-11] MEDS: FERROUS GLUCONATE 324 MG TAB PO SCH (10:09)
[2019-03-11] MEDS: hydrOXYzine 25 MG TAB PO SCH ×2 (10:09→13:00)
[2019-03-11] MEDS: CALCIUM/VITAMIN D 500 MG TAB PO SCH (10:09)
[2019-03-11] MEDS: lamoTRIgine 100MG TAB PO SCH (10:09)
[2019-03-11] MEDS: MIRALAX *UNIT DOSE* 17GM PACKET PO SCH (10:10)
[2019-03-11] MEDS: FLUTICASONE PROP 0.05% NASAL SPRAY 16 GM (FLONASE) SCH (10:10)
[2019-03-11] MEDS: clonazePAM 0.5 MG TAB PO SCH (13:00)
--- NOTE | 2019-03-11 14:17 | DS.PDOC ---
Discharge Summary General Date of Admission Mar 06, 2019 at 19:12 Date of Discharge 03/11/2019 Attending Physician: AMANDA RAYA MD Specialist/Consultants Involve: AIDEE ABERNATHY MD Discharge Summary PROCEDURES PERFORMED DURING STAY: Incision and drainage ADMITTING DIAGNOSES: 1. Back pain, skin lesions, skin abscess DISCHARGE DIAGNOSES: 1. Multiloculated back abscess, multiloculated thigh and buttocks abscess COMPLICATIONS/CHIEF COMPLAINT: Abscess Of Left Thigh. HISTORY OF PRESENT ILLNESS/HOSPITAL COURSE : Patient is a 63 year old developmentally challenged male with a past medical history of seizure disorder, COPD, sleep apnea, and hydro-syphilis, status post ORE PUNCHER shunt placement, presented with severe pain secondary to abscess on his back, thigh and hip. In his [facility] by [facility]. He had been prescribed doxycycline since March 04 without imp rovement. On admission patient was afebrile, although those complaints of lethargic, and reported MRSA outbreak at the [facility]. He was admitted for IV antibiotics, with an incision and drainage the following Friday. Following the incision and drainage wounds were packed with iodoform and clean daily. Pain control was provided during stay. During patient's stay, he remained afebrile, no chills, no signs of leukocytosis. Blood cultures were positive for MRSA on wound. His IV antibiotics was switched to by mouth Bactrim double strength twice daily. He was discharged on Bactrim, with pain control. . He will return to the [facility] home with instructions to follow up with surgery in 2 weeks. He is supposed to have his wounds clean daily and packed with iodoform until Friday, making it a solid week of packing. He will then change his dressing daily and clean the wound daily. He has also been instructed to complete his course of antibiotics. DISCHARGE MEDICATIONS: Please see below. ALLERGIES: Please see below. PHYSICAL EXAMINATION ON DISCHARGE: VITAL SIGNS: Please see below. GENERAL APPEARANCE: Elderly male, wearing a helmet, follows some directions, very pleasant SKIN: Warm, well perfused. .multiple follicular abscess mid back, right buttock, left thigh. Currently covered with dressing, no purulent drainage LUNGS: CTAB HEART: Normal S1, S2. No murmurs, no rubs, no gallops EXTREMITIES: Moves all extremities equally. No gross deformities. PULSES: 2+ upper and lower extremity . LABORATORY DATA: Please see below. PROGNOSIS: Stable ACTIVITY: As tolerated DIET: As tolerated DISCHARGE PLAN: To [facility] DISPOSITION: 01 Home, Self-Care. DISCHARGE INSTRUCTIONS: 1. Follow-up with surgery 2. Follow wound care packing, and dressing applied. ITEMS TO FOLLOWUP ON ON OUTPATIENT: 1. Wound Cleaning, Dressing and packing 2. Monitor for fever 3. Follow up with Surgery DISCHARGE CONDITION: Stable TIME SPENT ON DISCHARGE: 35 minutes. Vital Signs/I&Os Vital Signs Date Time Temp Pulse Resp B/P (MAP) Pulse Ox O2 Delivery O2 Flow Rate FiO2 03/11/19 06:00 97.7 61 19 123/62 (82) 95 Room Air 03/09/19 12:30 0.0 I&O- Last 24 Hours up to 6 AM 03/11/19 06:00 Intake Total 300 ml Output Total 200 ml Balance 100 ml Laboratory Data Labs 24H Laboratory Tests 2 03/11/19 05:55: Nucleated Red Blood Cells % (auto) 0.0, Anion Gap 4L, Glomerular Filtration Rate > 60.0, Calcium Level 8.6L CBC/BMP Laboratory Tests 03/11/19 05:55 Microbiology Microbiology 03/08/19 Gram Stain - Final, Complete 03/08/19 Wound Culture - Final, Complete Staph.aureus Methicillin Resis 03/08/19 Gram Stain - Final, Complete 03/08/19 Wound Culture - Final, Complete Staph.aureus Methicillin Resis 03/06/19 Gram Stain - Final, Complete 03/06/19 Wound Culture - Final, Complete Staph.aureus Methicillin Resis 03/06/19 Blood Culture - Preliminary, Resulted No Growth after 72 hours. All specime... 03/06/19 Blood Culture - Preliminary, Resulted No Growth after 72 hours. All specime... Discharge Medications Scheduled Calcium Carbonate/Vitamin D3 (Calcium 500-Vit D3 200 Tablet) 1 Tab Tab, 1 TAB PO TID, (Reported) Clonazepam (Clonazepam) 0.5 Mg Tab, 0.25 MG PO BID, (Reported) TAKES AT 1200 AND 1600 Donepezil HCl (Aricept) 10 Mg Tab, 10 MG PO QHS, (Reported) Ergocalciferol (Vitamin D2) (Drisdol) 50,000 Unit Cap, 50,000 UNIT PO 1XWK, (Reported) TAKES ON FRIDAY MORNINGS Fluticasone Propionate (Flonase Allergy Relief) 50 Mcg/Act Spr, 2 SPRAYS NA DAILY, (Reported) Hydroxyzine HCl (Hydroxyzine HCl) 25 Mg Tablet, 25 MG PO QID, (Reported) Lamotrigine (Lamotrigine) 200 Mg Tab, 200 MG PO DAILY, (Reported) Lamotrigine (Lamictal) 200 Mg Tab, 400 MG PO QHS, (Reported) Lubiprostone (Amitiza) 24 Mcg Cap, 24 MCG PO DAILY, (Reported) Paroxetine HCl (Paxil) 40 Mg Tab, 40 MG PO DAILY, (Reported) 60MG TOTAL Paroxetine HCl (Paroxetine HCl) 20 Mg Tablet, 20 MG PO DAILY, (Reported) 60MG TOTAL Phenobarbital (Phenobarbital) 64.8 Mg Tab, 64.8 MG PO BID, (Reported) Phenytoin Sodium Extended (Dilantin) 100 Mg Cap, 100 MG PO TID, (Reported) Polyethylene Glycol 3350 (Miralax) 119 Gm Powder, 17 GM PO DAILY, (Reported) Quetiapine Fumarate (Seroquel) 50 Mg Tab, 50 MG PO BID, (Reported) TAKES WITH 300MG FOR TOTAL OF 350MG Quetiapine Fumarate (Quetiapine Fumarate) 300 Mg Tab, 300 MG PO BID, (Reported) TAKES WITH 50 MG FOR TOTAL OF 350 MG Sennosides (Senna Lax) 8.6 Mg Tablet, 17.2 MG PO QHS, (Reported) Simvastatin (Simvastatin) 20 Mg Tab, 20 MG PO QHS, (Reported) Sulfamethoxazole/Trimethoprim (Sulfamethoxazole-Tmp Ds Tablet) 1 Each Tablet, 1 TAB PO BID for bacterial abcess Take 1 tab twice a day for 14 days Tamsulosin HCl (Flomax) 0.4 Mg Cap, 0.4 MG PO QHS, (Reported) Trazodone HCl (Trazodone HCl) 100 Mg Tab, 200 MG PO QHS, (Reported) levETIRAcetam (levETIRAcetam) 500 Mg Tablet, 1,000 MG PO BID, (Reported) Scheduled PRN Acetaminophen (Tylenol) 325 Mg Tablet, 650 MG PO Q6H PRN for PAIN / FEVER, (Reported) Tramadol HCl (Tramadol HCl) 50 Mg Tablet, 50 MG PO Q6HP PRN for pain Allergies Coded Allergies: felbamate (Verified Allergy, Unknown, 03/06/19) haloperidol (Verified Allergy, Unknown, 03/06/19) lurasidone (Verified Allergy, Unknown, 03/06/19) TAPE (Verified Adverse Reaction, Unknown, rash, 03/06/19) ATTENDING NOTE I have personally evaluated and examined the patient. Discussed with residents and student regarding plan of care and agree with the above assessment and plan. GME ATTESTATION GME ATTESTATION My faculty preceptor for this patient encounter was physically present during the encounter and was fully available. All aspects of the patient interview, examination, medical decision making process, and medical care plan development were reviewed and approved by the faculty preceptor. The faculty preceptor is aware and concurs with the plan as stated in the body of this note and will attest to such by his/her cosignature. RADHA RODRIGUEZ DO Mar 11, 2019 14:17 AMANDA RAYA MD Mar 11, 2019 14:31
[2019-03-11] MEDS ORDERED: TAMSULOSIN 0.4 MG CAP PO SCH (21:00)
== END 2019-03-11 13:28 | disposition home or self-care (01) | DRG 603 ==
LOC: M ED 16:39 → EEVIPCON 19:12 → M ED INP 19:12 → M MSPAV 20:50
PROVIDERS: ADMIT Internal Medicine; ATTEND Student in an Organized Health Care Education/Training Program
PROC: 0H96XZZ Drainage of Back Skin, External Approach (ICD-10-PCS; principal; 2019-03-08)
PROC: 0H98XZZ Drainage of Buttock Skin, External Approach (ICD-10-PCS; 2019-03-08)
DX: L02.416 Cutaneous abscess of left lower limb (principal); G91.9 Hydrocephalus, unspecified; L02.31 Cutaneous abscess of buttock; L02.212 Cutaneous abscess of back [any part, except buttock and flank]; B95.62 Methicillin resistant Staphylococcus aureus infection as the cause of diseases classified elsewhere; F79 Unspecified intellectual disabilities; G40.909 Epilepsy, unspecified, not intractable, without status epilepticus; G47.33 Obstructive sleep apnea (adult) (pediatric); J44.9 Chronic obstructive pulmonary disease, unspecified; N40.0 Benign prostatic hyperplasia without lower urinary tract symptoms; I10 Essential (primary) hypertension; E78.5 Hyperlipidemia, unspecified; Z86.018 Personal history of other benign neoplasm; Z90.49 Acquired absence of other specified parts of digestive tract; Z86.73 Personal history of transient ischemic attack (TIA), and cerebral infarction without residual deficits; D64.9 Anemia, unspecified; Z88.8 Allergy status to other drugs, medicaments and biological substances; Z79.899 Other long term (current) drug therapy; Z91.09 Other allergy status, other than to drugs and biological substances

== ENCOUNTER 2019-05-29 10:07 | Emergency (ER) | payer MEDICARE, MEDICAID ==
[~2019-05-29] VITALS: Ht 188 cm; Wt 103.2 kg
[~2019-05-29 10:07] MED LIST changes: +ACET-907 PO; +DOXY100T2 PO; +LEVE500T5 PO; +MIRA3350 PO; +MUPI2OI TOP; +OXYB-54 PO; -OXYB5TAB2 PO; +PARO20TA3 PO; +RA S8.6T3 PO; +SULF1TAB93 PO; +TRAM50TA2 PO; -TRAZ-163 PO; +TRAZ-257 PO; -TRAZ10TA GT; +TRAZ1TAB12 GT
[2019-05-29] MEDS ORDERED: CYCL5TAB PO (10:26)
[2019-05-29] MEDS ORDERED: ACETAMINOPHEN 500 MG TAB PO ONE (11:00)
--- NOTE | 2019-05-29 11:26 | REPVR ---
PROCEDURE INFORMATION: Exam: CT Head Without Contrast Exam date and time: 05/29/2019 11:06 AM Age: 63 years old Clinical indication: Pain; Headache TECHNIQUE: Imaging protocol: Computed tomography of the head without contrast. Radiation optimization: All CT scans at this facility use at least one of these dose optimization techniques: automated exposure control; mA and/or kV adjustment per patient size (includes targeted exams where dose is matched to clinical indication); or iterative reconstruction. COMPARISON: CT Head without contrast 05/15/2018 8:01 AM FINDINGS: Tubes, catheters and devices: Stable right frontal approach ventricular catheter. Stable ventriculomegaly. Brain: Multiple areas of encephalomalacia and gliosis throughout the bilateral frontal, temporal, and left parietal lobes and cerebellum appears stable, with cystic encephalomalacia within the left parietal lobe likely at a old resection site with overlying craniotomy changes. No acute intracranial hemorrhage. No acute ischemic infarction. Bones/joints: Old calvarial surgical changes from left parietal craniotomy, right frontal craniotomy and ventura hole. Sinuses: Moderate paranasal sinus mucosal thickening. Mastoid air cells: Visualized mastoid air cells are well aerated. Soft tissues: Unremarkable. IMPRESSION: 1. No acute intracranial abnormality. 2. Extensive chronic findings appear overall similar to the comparison CT. Electronically signed by: Abdon Jarrett On 05/29/2019 11:28:23 AM
[2019-05-29 11:37] LABS: BASO % 0.8 % (0.0-1.0); EOS # 0.3 10^3/uL (0.0-0.5); HEMATOCRIT 38.4 % (42.0-52.0); HEMOGLOBIN 12.2 g/dl (13.5-17.5); LYMPH # 1.4 10^3/uL (1.5-5.0); LYMPH % 28.8 % (24.0-44.0); MEAN CORPUSCULAR HGB CONC 31.8 g/dl (32.0-36.5); MEAN CORPUSCULAR VOLUME 91.4 fl (80.0-96.0); MONO # 0.4 10^3/uL (0.0-0.8); MONO % 8.2 % (0.0-5.0); NEUTROPHILS # 2.9 10^3/uL (1.5-8.5); PLATELET COUNT, AUTOMATED 157 10^3/uL (150-450)
--- NOTE | 2019-05-29 11:42 | REP ---
Shunt series four views: The the patient also had a CT of the brain at this time. Comparison is the study of 03/25/2017. There is a ENGINEERING MANAGER shunt descending on the right. There is no evidence of shunt tube kinking. The distal tip of the shunt is in the abdomen on the right. SI no soft tissue mass is identified at the distal tip of the shunt. Impression: No evidence of shunt tube kink. No evidence of pseudocyst at the distal tip of the shunt. Electronically Signed by Abdelrahman Delaney MD 05/29/2019 11:34 A
[2019-05-29 12:11] LABS: ALBUMIN 3.6 GM/DL (3.2-5.2); ALT/SGPT 18 U/L (12-78); BILIRUBIN,DIRECT < 0.1 MG/DL (0.0-0.2); BILIRUBIN,TOTAL 0.2 MG/DL (0.2-1.0); BLOOD UREA NITROGEN 15 MG/DL (7-18); CALCIUM LEVEL 8.6 MG/DL (8.8-10.2); CARBON DIOXIDE LEVEL 31 MEQ/L (21-32); CHLORIDE LEVEL 104 MEQ/L (98-107); CREATININE FOR GFR 0.82 MG/DL (0.70-1.30); GLOMERULAR FILTRATION RATE > 60.0 (>49); GLUCOSE, FASTING 102 MG/DL (70-100); POTASSIUM SERUM 5.2 MEQ/L (3.5-5.1); SODIUM LEVEL 139 MEQ/L (136-145); TOTAL PROTEIN 6.7 GM/DL (6.4-8.2)
[2019-05-29 13:30] VITALS: BP 170/112
--- NOTE | 2019-05-29 21:50 | ECGEPIP ---
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
== END 2019-05-29 13:39 | disposition home or self-care (01) ==
LOC: M ED 10:07
DX: G44.209 Tension-type headache, unspecified, not intractable (principal); I10 Essential (primary) hypertension; J44.9 Chronic obstructive pulmonary disease, unspecified; Z86.73 Personal history of transient ischemic attack (TIA), and cerebral infarction without residual deficits; Z86.018 Personal history of other benign neoplasm; G47.33 Obstructive sleep apnea (adult) (pediatric); Z88.1 Allergy status to other antibiotic agents; Z88.8 Allergy status to other drugs, medicaments and biological substances; Z91.048 Other nonmedicinal substance allergy status; Z79.891 Long term (current) use of opiate analgesic; Z79.899 Other long term (current) drug therapy

== ENCOUNTER 2019-06-06 12:20 | Emergency (ER) | payer MEDICARE, MEDICAID ==
[~2019-06-06] VITALS: Ht 185.4 cm; Wt 103.2 kg
[~2019-06-06 12:20] MED LIST changes: +CYCL5TAB PO
[2019-06-06] MEDS ORDERED: BACT800T5 PO ×2 (13:41→13:42)
[2019-06-06] MEDS ORDERED: MUPI2OI TOP (13:41)
[2019-06-06 14:00] VITALS: BP 131/69
[2019-06-06 14:32] LABS: PHENOBARBITAL LEVEL 30.1 UG/ML (15.0-40.0); PHENYTOIN (DILANTIN) 18.5 UG/ML (10.0-20.0)
[2019-06-06] MEDS ORDERED: LACT10SO29 PO (15:54)
[2019-06-11 00:08] LABS: LEVETIRACETAM (KEPPRA) 27.9 ug/mL (10.0-40.0)
== END 2019-06-06 14:18 | disposition home or self-care (01) ==
LOC: M ED 12:20
DX: L03.221 Cellulitis of neck (principal); A49.02 Methicillin resistant Staphylococcus aureus infection, unspecified site; G40.909 Epilepsy, unspecified, not intractable, without status epilepticus; G47.30 Sleep apnea, unspecified; N40.0 Benign prostatic hyperplasia without lower urinary tract symptoms; E03.9 Hypothyroidism, unspecified; H35.30 Unspecified macular degeneration; F79 Unspecified intellectual disabilities; Z88.1 Allergy status to other antibiotic agents; Z88.8 Allergy status to other drugs, medicaments and biological substances; Z91.048 Other nonmedicinal substance allergy status; Z79.811 Long term (current) use of aromatase inhibitors; Z79.891 Long term (current) use of opiate analgesic; Z79.899 Other long term (current) drug therapy

== ENCOUNTER → 2019-06-11 | Outpatient (CLI) | payer MEDICARE, MEDICAID ==
[~2019-06-11] MED LIST changes: +BACT800T5 PO; +LACT10SO29 PO
== END ==
LOC: M LAB 12:44
PROVIDERS: ATTEND Physician Assistant Medical
DX: E72.20 Disorder of urea cycle metabolism, unspecified (principal)

== ENCOUNTER → 2019-06-22 | Outpatient (CLI) | payer MEDICARE, MEDICAID ==
[2019-06-22 09:33] LABS: BASO # 0.1 10^3/uL (0.0-0.2); EOS # 0.4 10^3/uL (0.0-0.5); EOS % 8.9 % (0.0-3.0); HEMATOCRIT 36.7 % (42.0-52.0); LYMPH # 1.5 10^3/uL (1.5-5.0); LYMPH % 31.5 % (24.0-44.0); MEAN CORPUSCULAR HEMOGLOBIN 29.8 pg (27.0-33.0); MEAN CORPUSCULAR HGB CONC 32.7 g/dl (32.0-36.5); MEAN CORPUSCULAR VOLUME 91.1 fl (80.0-96.0); MONO # 0.5 10^3/uL (0.0-0.8); MONO % 9.8 % (0.0-5.0); NEUTROPHILS # 2.3 10^3/uL (1.5-8.5); NEUTROPHILS % 48.4 % (36.0-66.0); PLATELET COUNT, AUTOMATED 183 10^3/uL (150-450); RED BLOOD COUNT 4.03 10^6/uL (4.30-6.10); WHITE BLOOD COUNT 4.8 10^3/uL (4.0-10.0)
[2019-06-22 10:36] LABS: ALBUMIN 3.7 GM/DL (3.2-5.2); ALT/SGPT 22 U/L (12-78); BILIRUBIN,TOTAL 0.1 MG/DL (0.2-1.0); BLOOD UREA NITROGEN 13 MG/DL (7-18); CALCIUM LEVEL 8.5 MG/DL (8.8-10.2); CARBON DIOXIDE LEVEL 28 MEQ/L (21-32); CHLORIDE LEVEL 103 MEQ/L (98-107); CHOLESTEROL LEVEL 151 MG/DL (<200); CHOLESTEROL RISK RATIO 2.849 (<5); CREATININE FOR GFR 0.89 MG/DL (0.70-1.30); FREE T4 0.54 NG/DL (0.76-1.46); GLOMERULAR FILTRATION RATE > 60.0 (>49); GLUCOSE, FASTING 101 MG/DL (70-100); HDL CHOLESTEROL 53 MG/DL (>40); LDL CHOLESTEROL 69 MG/DL (<100); NON-HDL-C 98 MG/DL; PHENOBARBITAL LEVEL 36.6 UG/ML (15.0-40.0); PHENYTOIN (DILANTIN) 20.6 UG/ML (10.0-20.0); POTASSIUM SERUM 4.6 MEQ/L (3.5-5.1); SODIUM LEVEL 136 MEQ/L (136-145); TOTAL PROTEIN 6.9 GM/DL (6.4-8.2); TRIGLYCERIDES LEVEL 145 MG/DL (<150)
== END ==
LOC: M LAB 08:51
PROVIDERS: ATTEND Physician Assistant Medical
DX: R53.83 Other fatigue (principal); I10 Essential (primary) hypertension; E78.2 Mixed hyperlipidemia; G40.309 Generalized idiopathic epilepsy and epileptic syndromes, not intractable, without status epilepticus

== ENCOUNTER → 2019-07-07 | Outpatient (CLI) | payer MEDICARE, MEDICAID | LOC: M LAB 10:04 | PROVIDERS: ATTEND Physician Assistant Medical | DX: E72.20 Disorder of urea cycle metabolism, unspecified (principal) ==

== ENCOUNTER → 2019-07-20 | Outpatient (CLI) | payer MEDICARE, MEDICAID | LOC: M LAB 11:15 | PROVIDERS: ATTEND Physician Assistant Medical | DX: G40.89 Other seizures (principal); E72.20 Disorder of urea cycle metabolism, unspecified ==

== ENCOUNTER → 2019-07-21 | Outpatient (REF) | payer MEDICARE, MEDICAID | LOC: M LAB REF 14:26 | PROVIDERS: ATTEND Physician Assistant Medical | DX: R30.0 Dysuria (principal) ==

== ENCOUNTER → 2019-08-12 | Outpatient (CLI) | payer MEDICARE, MEDICAID | LOC: M LAB 10:38 | PROVIDERS: ATTEND Physician Assistant Medical | DX: E72.20 Disorder of urea cycle metabolism, unspecified (principal) ==

== ENCOUNTER → 2019-09-24 | Outpatient (CLI) | payer MEDICARE, MEDICAID ==
[~2019-09-24] MED LIST changes: -PARO30TA PO; +PARO30TA65 PO
[2019-09-24 09:57] LABS: PHENOBARBITAL LEVEL 29.3 UG/ML (15.0-40.0); PHENYTOIN (DILANTIN) 9.2 UG/ML (10.0-20.0)
[2019-09-27 15:07] LABS: LAMOTRIGINE (LAMICTAL) 7.9 ug/mL (2.0-20.0); LEVETIRACETAM (KEPPRA) 14.9 ug/mL (10.0-40.0)
== END ==
LOC: M LAB 08:44
PROVIDERS: ATTEND Physician Assistant Medical
DX: G40.89 Other seizures (principal)

== ENCOUNTER → 2019-10-14 | Outpatient (CLI) | payer MEDICARE, MEDICAID ==
[~2019-10-14] MED LIST changes: +BISA10SU27 PR; -FLON1SPR; -LACT10SO29 PO; +LACT10SO3 PO; +LACT20EL PO; +MILKSUS21 PO; +PHEN30CA PO
== END ==
LOC: M LAB 10:15
PROVIDERS: ATTEND Physician Assistant Medical
DX: R56.9 Unspecified convulsions (principal); E72.20 Disorder of urea cycle metabolism, unspecified; Z51.81 Encounter for therapeutic drug level monitoring
CPT/HCPCS: 36415; 80185; 82140; G0463

== ENCOUNTER 2019-10-25 12:32 | Emergency (ER) | payer MEDICARE, MEDICAID ==
[~2019-10-25 12:32] MED LIST changes: -BISA10SU27 PR; +FLON1SPR; -LACT10SO3 PO; -MILKSUS21 PO; -PHEN30CA PO
--- NOTE | 2019-10-25 13:12 | REP ---
Clinical: Altered mental status. Comparison: 05/29/2019. Findings: Atrophy with microvascular ischemic changes and periventricular leukomalacia as well as ventriculoperitoneal shunt via right frontal approach and elements of encephalomalacia in the left parietal lobe remain unchanged. No acute intracranial hemorrhage, mass or mass effect. No acute extra-axial fluid collection. Calvarium is stable. Sinuses demonstrate chronic mucoperiosteal changes. Mastoid air cells are clear. Impression: Chronic stable changes. No acute intracranial pathology appreciated. Electronically Signed by Edy Melendez MD 10/25/2019 01:03 P
[2019-10-25 13:28] LABS: BASO % 0.5 % (0.0-1.0); EOS # 0.2 10^3/uL (0.0-0.5); EOS % 5.7 % (0.0-3.0); HEMATOCRIT 35.8 % (42.0-52.0); HEMOGLOBIN 11.8 g/dl (13.5-17.5); LYMPH # 1.4 10^3/uL (1.5-5.0); LYMPH % 34.2 % (24.0-44.0); MEAN CORPUSCULAR HEMOGLOBIN 30.1 pg (27.0-33.0); MEAN CORPUSCULAR VOLUME 91.3 fl (80.0-96.0); MONO # 0.4 10^3/uL (0.0-0.8); MONO % 9.2 % (0.0-5.0); NEUTROPHILS % 50.2 % (36.0-66.0); PLATELET COUNT, AUTOMATED 161 10^3/uL (150-450); RED BLOOD COUNT 3.92 10^6/uL (4.30-6.10)
[2019-10-25 14:07] LABS: ALBUMIN 3.5 GM/DL (3.2-5.2); ALT/SGPT 24 U/L (12-78); BILIRUBIN,DIRECT < 0.1 MG/DL (0.0-0.2); BILIRUBIN,TOTAL 0.1 MG/DL (0.2-1.0); BLOOD UREA NITROGEN 16 MG/DL (7-18); CARBON DIOXIDE LEVEL 30 MEQ/L (21-32); CHLORIDE LEVEL 107 MEQ/L (98-107); CK-MB VALUE MASS < 1.0 NG/ML (<3.6); CPK CREATINE PHOSPHOKINASE 64 U/L (39-308); CREATININE FOR GFR 0.94 MG/DL (0.70-1.30); GLOMERULAR FILTRATION RATE > 60.0 (>49); GLUCOSE, FASTING 138 MG/DL (70-100); MB/CK RELATIVE INDEX 1.56 (< OR =4); POTASSIUM SERUM 3.8 MEQ/L (3.5-5.1); SODIUM LEVEL 142 MEQ/L (136-145); TOTAL PROTEIN 6.3 GM/DL (6.4-8.2); TROPONIN I < 0.02 NG/ML (< 0.10)
[2019-10-25 14:15] LABS: OSMOLALITY SERUM 292 MOSM/KG (280-301)
[2019-10-25 14:56] LABS: PHENOBARBITAL LEVEL 28.1 UG/ML (15.0-40.0); PHENYTOIN (DILANTIN) 9.1 UG/ML (10.0-20.0)
--- NOTE | 2019-10-25 16:56 | ECGEPIP ---
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
[2019-10-25 17:39] LABS: GLUCOSE, URINE (UA) MANUAL NEGATIVE (NEGATIVE); KETONE, URINE MANUAL NEGATIVE (NEGATIVE)
[2019-10-25 17:40] LABS: BILIRUBIN, URINE MANUAL NEGATIVE (NEGATIVE); UROBILINOGEN, URINE MANUAL NORMAL (NORMAL)
[2019-10-25 17:54] LABS: BACTERIA, URINE NONE SEEN; HYALINE CAST, URINE NONE SEEN /lpf (0-1); SQUAMOUS EPITHELIAL CELL URINE NONE SEEN /hpf (SMALL AMT)
[2019-10-25 18:28] VITALS: BP 114/69
[2019-10-31 17:07] LABS: LAMOTRIGINE (LAMICTAL) 7.9 ug/mL (2.0-20.0); LEVETIRACETAM (KEPPRA) 34.6 ug/mL (10.0-40.0)
== END 2019-10-25 18:32 | disposition home or self-care (01) ==
LOC: EDBD 12:32 → M ED 12:32
DX: R40.4 Transient alteration of awareness (principal); J44.9 Chronic obstructive pulmonary disease, unspecified; Z79.899 Other long term (current) drug therapy; Z88.8 Allergy status to other drugs, medicaments and biological substances; Z91.048 Other nonmedicinal substance allergy status; Z98.2 Presence of cerebrospinal fluid drainage device

== ENCOUNTER → 2020-01-05 | Outpatient (CLI) | payer MEDICARE, MEDICAID ==
[~2020-01-05] MED LIST changes: +BISA10SU27 PR; -FLON1SPR; +LACT10SO3 PO; +MILKSUS21 PO; +PHEN30CA PO
[2020-01-05 12:43] LABS: BASO % 0.6 % (0.0-1.0); EOS # 0.3 10^3/uL (0.0-0.5); EOS % 5.8 % (0.0-3.0); HEMATOCRIT 42.3 % (42.0-52.0); HEMOGLOBIN 13.4 g/dl (13.5-17.5); LYMPH # 1.6 10^3/uL (1.5-5.0); LYMPH % 33.5 % (24.0-44.0); MEAN CORPUSCULAR HEMOGLOBIN 29.8 pg (27.0-33.0); MEAN CORPUSCULAR HGB CONC 31.7 g/dl (32.0-36.5); MONO # 0.4 10^3/uL (0.0-0.8); MONO % 8.7 % (0.0-5.0); NEUTROPHILS # 2.4 10^3/uL (1.5-8.5); NEUTROPHILS % 51.2 % (36.0-66.0); PLATELET COUNT, AUTOMATED 167 10^3/uL (150-450); WHITE BLOOD COUNT 4.6 10^3/uL (4.0-10.0)
[2020-01-05 13:24] LABS: ALBUMIN 3.8 GM/DL (3.2-5.2); ALT/SGPT 24 U/L (12-78); BILIRUBIN,TOTAL 0.2 MG/DL (0.2-1.0); BLOOD UREA NITROGEN 18 MG/DL (7-18); CALCIUM LEVEL 8.6 MG/DL (8.8-10.2); CARBON DIOXIDE LEVEL 29 MEQ/L (21-32); CHLORIDE LEVEL 109 MEQ/L (98-107); CREATININE FOR GFR 0.95 MG/DL (0.70-1.30); GLOMERULAR FILTRATION RATE > 60.0 (>49); GLUCOSE, FASTING 111 MG/DL (70-100); PHENOBARBITAL LEVEL 28.6 UG/ML (15.0-40.0); PHENYTOIN (DILANTIN) 9.3 UG/ML (10.0-20.0); POTASSIUM SERUM 4.6 MEQ/L (3.5-5.1); SODIUM LEVEL 142 MEQ/L (136-145); TOTAL PROTEIN 6.9 GM/DL (6.4-8.2)
[2020-01-11 08:09] LABS: LAMOTRIGINE (LAMICTAL) 6.3 ug/mL (2.0-20.0); LEVETIRACETAM (KEPPRA) 12.4 ug/mL (10.0-40.0)
== END ==
LOC: M LAB 12:13
PROVIDERS: ATTEND Psychiatry & Neurology Neurology
DX: R56.9 Unspecified convulsions (principal); N39.0 Urinary tract infection, site not specified; R41.82 Altered mental status, unspecified; Z51.81 Encounter for therapeutic drug level monitoring

== ENCOUNTER → 2020-01-05 | Outpatient (CLI) | payer MEDICARE, MEDICAID ==
[2020-01-05 13:04] LABS: APPEARANCE, URINE CLEAR (CLEAR); BACTERIA, URINE AUTO NEGATIVE (NEGATIVE); BILIRUBIN, URINE AUTO NEGATIVE (NEGATIVE); BLOOD, URINE BLOOD NEGATIVE (NEGATIVE); CALCIUM OXALATE CRYSTALS SMALL; COLOR, URINE YELLOW (YELLOW); GLUCOSE, URINE (UA) AUTO NEGATIVE (NEGATIVE); KETONE, URINE AUTO NEGATIVE (NEGATIVE); LEUKOCYTE ESTERASE, URINE AUTO NEGATIVE (NEGATIVE); MUCUS, URINE SMALL (NEGATIVE); NITRITE, URINE AUTO NEGATIVE (NEGATIVE); PROTEIN, URINE AUTO NEGATIVE (NEGATIVE); RBC, URINE AUTO 1 /HPF (0-3); SPECIFIC GRAVITY URINE AUTO 1.023 (1.002-1.035); SQUAMOUS EPITHELIAL CELL UR AU 0 /HPF (0-6); UROBILINOGEN, URINE AUTO 0.2 mg/dL (0.0-2.0); WBC, URINE AUTO 1 /HPF (0-3)
== END ==
LOC: M LAB 12:16
PROVIDERS: ATTEND Physician Assistant Medical
DX: N39.0 Urinary tract infection, site not specified (principal); R41.82 Altered mental status, unspecified

== ENCOUNTER 2020-02-04 17:45 | Emergency (ER) | payer MEDICARE, MEDICAID ==
[~2020-02-04 17:45] MED LIST changes: -BISA10SU27 PR; -LACT10SO3 PO; -MILKSUS21 PO; -PHEN30CA PO
--- NOTE | 2020-02-04 18:58 | REPVR ---
PROCEDURE INFORMATION: Exam: CT Head Without Contrast Exam date and time: 02/04/2020 6:19 PM Age: 64 years old Clinical indication: Other: Seizure; Additional info: CVA - nursing interventions must not delay CT TECHNIQUE: Imaging protocol: Computed tomography of the head without contrast. Radiation optimization: All CT scans at this facility use at least one of these dose optimization techniques: automated exposure control; mA and/or kV adjustment per patient size (includes targeted exams where dose is matched to clinical indication); or iterative reconstruction. Other technique: STROKE PROTOCOL was implemented. COMPARISON: No relevant prior studies available. FINDINGS: Brain: The previously described area of encephalomalacia within the left parietal lobe is stable. Encephalomalacia/gliosis again visualized involving the bilateral frontal lobes. There is both cerebral and cerebellar sulcal prominence consistent with atrophy. No acute intracranial hemorrhage is visualized. The white-sharma differentiation is preserved demonstrating no acute territorial type infarct. There are periventricular foci of white matter hypodensity, likely representing small vessel ischemic disease in a patient this age. The acuity of the white matter disease is indeterminate. The septum pellucidum is incompletely visualized and may be incompletely formed. Cerebral ventricles: Mild stable ventriculomegaly. Bones/joints: A left parietal craniotomy is identified. Additional postoperative changes are visualized involving the frontals gall bilaterally. A right transfrontal ventriculostomy shunt catheter is identified, with the catheter tip within the right lateral ventricle. Paranasal sinuses: Mucosal thickening/effusions of scattered ethmoid air cells. There is mucosal thickening of the bilateral frontal sinuses. Mastoid air cells: No mastoid effusion. Soft tissues: Soft tissue swelling/hematoma of the right posterior scalp. Other findings: A sellar mass is identified with suprasellar extension. This measures 1.3 x 1.6 x 1.2 cm. 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 Artifact limits this study. IMPRESSION: 1. No acute intracranial hemorrhage or acute territorial type infarct. 2. A sellar mass is identified with suprasellar extension. 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 Correlation with an MRI of the brain with/without contrast (pituitary protocol) is recommended. 3. Soft tissue swelling/hematoma of the right posterior scalp. 4. The previously described area of encephalomalacia within the left parietal lobe is stable. Encephalomalacia/gliosis again visualized involving the bilateral frontal lobes. 5. Mild stable ventriculomegaly. Stable sulcal atrophy. 6. There are periventricular foci of white matter hypodensity, likely representing small vessel ischemic disease in a patient this age. 7. A right transfrontal ventriculostomy shunt catheter is identified, with the catheter tip within the right lateral ventricle. Additional postoperative changes involving the skull. 8. Paranasal sinus disease. ASSESSMENT: Rudd Stroke Program Early CT Score (ASPECTS) = 10 Electronically signed by: Anjel Winter On 02/04/2020 18:57:16 PM
[2020-02-04] MEDS ORDERED: BISA10SU27 PR (19:06)
[2020-02-04] MEDS ORDERED: MILKSUS21 PO (19:06)
[2020-02-04] MEDS ORDERED: PHEN30CA PO (19:06)
--- NOTE | 2020-02-04 19:08 | REPVR ---
PROCEDURE INFORMATION: Exam: XR Chest, 1 View Exam date and time: 02/04/2020 6:39 PM Age: 64 years old Clinical indication: Other: CVA TECHNIQUE: Imaging protocol: XR of the chest Views: 1 view. COMPARISON: CT Chest without contrast 05/15/2018 8:07 AM FINDINGS: Lungs: Low lung volumes are identified. There is increased opacification at the left lung base, likely representing atelectatic change or infiltrate. There is a band of opacification at the level of the right upper lung zone and extending superior to the right clavicle, which is likely external to the lung. Pleural space: Mild bilateral pleural thickening or effusions. Heart/Mediastinum: The cardiac silhouette appears enlarged. Bones/joints: Hypertrophic degenerative changes are noted involving the spine. Soft tissues: Soft tissue shadowing from the patient's face/chin limits evaluation of the pulmonary apices. A right-sided CHIEF PROGRAM OFFICER shunt catheter is incompletely visualized. IMPRESSION: 1. Low lung volumes are identified. There is increased opacification at the left lung base, likely representing atelectatic change or infiltrate. Clinical correlation and follow-up radiographs are recommended. 2. The cardiac silhouette appears enlarged. 3. Mild bilateral pleural thickening or effusions. 4. Additional findings described above. Electronically signed by: Anjel Winter On 02/04/2020 19:08:28 PM
[2020-02-04 19:22] VITALS: BP 140/79
[2020-02-04 19:27] LABS: BASO % 0.8 % (0.0-1.0); EOS # 0.4 10^3/uL (0.0-0.5); EOS % 7.5 % (0.0-3.0); HEMOGLOBIN 11.5 g/dl (13.5-17.5); LYMPH # 1.6 10^3/uL (1.5-5.0); LYMPH % 31.8 % (24.0-44.0); MEAN CORPUSCULAR HEMOGLOBIN 29.3 pg (27.0-33.0); MEAN CORPUSCULAR HGB CONC 31.9 g/dl (32.0-36.5); MEAN CORPUSCULAR VOLUME 91.6 fl (80.0-96.0); MONO # 0.6 10^3/uL (0.0-0.8); MONO % 11.8 % (0.0-5.0); NEUTROPHILS # 2.5 10^3/uL (1.5-8.5); NEUTROPHILS % 47.9 % (36.0-66.0); PLATELET COUNT, AUTOMATED 155 10^3/uL (150-450); RED BLOOD COUNT 3.93 10^6/uL (4.30-6.10); WHITE BLOOD COUNT 5.1 10^3/uL (4.0-10.0)
[2020-02-04 19:51] LABS: BLOOD UREA NITROGEN 21 MG/DL (7-18); CARBON DIOXIDE LEVEL 32 MEQ/L (21-32); CHLORIDE LEVEL 106 MEQ/L (98-107); CREATININE FOR GFR 0.93 MG/DL (0.70-1.30); GLOMERULAR FILTRATION RATE > 60.0 (>49); GLUCOSE, FASTING 113 MG/DL (70-100); POTASSIUM SERUM 4.7 MEQ/L (3.5-5.1); SODIUM LEVEL 140 MEQ/L (136-145)
[2020-02-04] MEDS ORDERED: HYDR1CAP25 PO (19:51)
[2020-02-04] MEDS ORDERED: LACT10SO3 PO (19:51)
[2020-02-04] MEDS ORDERED: DRIS50003 PO (19:51)
[2020-02-04 19:52] LABS: ALBUMIN 3.6 GM/DL (3.2-5.2); ALT/SGPT 24 U/L (12-78); BILIRUBIN,DIRECT < 0.1 MG/DL (0.0-0.2); CALCIUM LEVEL 8.7 MG/DL (8.8-10.2); PHENYTOIN (DILANTIN) 10.7 UG/ML (10.0-20.0); TOTAL PROTEIN 6.7 GM/DL (6.4-8.2)
[2020-02-04 20:30] LABS: BILIRUBIN,TOTAL < 0.1 MG/DL (0.2-1.0)
--- NOTE | 2020-02-06 15:33 | ED PDOC ---
Post-Departure Follow-Up radiology rpeort faxed to Tami Arceo MD Feb 06, 2020 15:33
== END 2020-02-04 22:27 | disposition home or self-care (01) ==
LOC: M ED 17:45
DX: G40.909 Epilepsy, unspecified, not intractable, without status epilepticus (principal); S00.03XA Contusion of scalp, initial encounter; X58.XXXA Exposure to other specified factors, initial encounter; R91.8 Other nonspecific abnormal finding of lung field; E23.6 Other disorders of pituitary gland; J34.89 Other specified disorders of nose and nasal sinuses; G93.89 Other specified disorders of brain; J44.9 Chronic obstructive pulmonary disease, unspecified; G47.33 Obstructive sleep apnea (adult) (pediatric); Z98.2 Presence of cerebrospinal fluid drainage device; Z88.8 Allergy status to other drugs, medicaments and biological substances; Z91.048 Other nonmedicinal substance allergy status; Z79.899 Other long term (current) drug therapy

== ENCOUNTER → 2020-02-16 | Outpatient (REF) | payer MEDICARE, MEDICAID ==
[~2020-02-16] MED LIST changes: +BISA10SU27 PR; +LACT10SO3 PO; +MILKSUS21 PO; +PHEN30CA PO
== END ==
LOC: M LAB REF 17:04
PROVIDERS: ATTEND Physician Assistant
DX: L02.215 Cutaneous abscess of perineum (principal)
CPT/HCPCS: 17110; 87070; 87077; 87186; G0463

== ENCOUNTER → 2020-03-02 | Outpatient (CLI) | payer MEDICARE, MEDICAID ==
[2020-03-02 09:41] LABS: BASO # 0.1 10^3/uL (0.0-0.2); BASO % 0.9 % (0.0-1.0); EOS # 0.3 10^3/uL (0.0-0.5); EOS % 6.1 % (0.0-3.0); HEMATOCRIT 42.6 % (42.0-52.0); HEMOGLOBIN 13.2 g/dl (13.5-17.5); LYMPH # 1.9 10^3/uL (1.5-5.0); LYMPH % 34.4 % (24.0-44.0); MEAN CORPUSCULAR HEMOGLOBIN 28.9 pg (27.0-33.0); MEAN CORPUSCULAR VOLUME 93.4 fl (80.0-96.0); MONO # 0.5 10^3/uL (0.0-0.8); MONO % 9.2 % (0.0-5.0); NEUTROPHILS # 2.7 10^3/uL (1.5-8.5); PLATELET COUNT, AUTOMATED 163 10^3/uL (150-450); RED BLOOD COUNT 4.56 10^6/uL (4.30-6.10); WHITE BLOOD COUNT 5.4 10^3/uL (4.0-10.0)
[2020-03-02 10:09] LABS: ALBUMIN 3.7 GM/DL (3.2-5.2); ALT/SGPT 24 U/L (12-78); BILIRUBIN,TOTAL 0.2 MG/DL (0.2-1.0); BLOOD UREA NITROGEN 14 MG/DL (7-18); CARBON DIOXIDE LEVEL 30 MEQ/L (21-32); CHLORIDE LEVEL 108 MEQ/L (98-107); CHOLESTEROL LEVEL 153 MG/DL (<200); CHOLESTEROL RISK RATIO 2.886 (<5); CREATININE FOR GFR 1.04 MG/DL (0.70-1.30); FREE T4 0.48 NG/DL (0.76-1.46); GLOMERULAR FILTRATION RATE > 60.0 (>49); GLUCOSE, FASTING 105 MG/DL (70-100); HDL CHOLESTEROL 53 MG/DL (>40); LDL CHOLESTEROL 70 MG/DL (<100); NON-HDL-C 100 MG/DL; POTASSIUM SERUM 4.4 MEQ/L (3.5-5.1); PROSTATIC SPECIFIC AG MONITOR 0.04 NG/ML (< 4.00); SODIUM LEVEL 142 MEQ/L (136-145); TOTAL PROTEIN 6.8 GM/DL (6.4-8.2); TRIGLYCERIDES LEVEL 151 MG/DL (<150)
== END ==
LOC: M LAB 08:38
PROVIDERS: ATTEND Physician Assistant Medical
DX: E78.2 Mixed hyperlipidemia (principal); R53.83 Other fatigue; I10 Essential (primary) hypertension

== ENCOUNTER 2020-04-17 13:26 | Inpatient (IN) | payer MEDICARE, MEDICAID ==
[~2020-04-17] VITALS: Ht 185.4 cm; Wt 85.3 kg
[2020-04-17] MEDS ORDERED: NS 500 ML IV ONE (13:45)
[2020-04-17 14:22] LABS: VENOUS BASE EXCESS -0.2 (-2.0-2.0); VENOUS HCO3 28.3 MEQ/L (23.0-27.0); VENOUS O2 SATURATION 67.8 % (60.0-80.0); VENOUS PARTIAL PRESSURE CO2 65.1 mmHg (38.0-50.0); VENOUS PH 7.256 UNITS (7.330-7.430); VENOUS STANDARD HCO3 23.7 MEQ/L; VENOUS TOTAL CO2 30.3 MEQ/L (24.0-28.0)
[2020-04-17 14:27] LABS: BASO % 0.8 % (0.0-1.0); EOS # 0.1 10^3/uL (0.0-0.5); EOS % 3.7 % (0.0-3.0); HEMATOCRIT 37.6 % (42.0-52.0); LYMPH % 26.6 % (24.0-44.0); MEAN CORPUSCULAR HEMOGLOBIN 29.1 pg (27.0-33.0); MEAN CORPUSCULAR HGB CONC 31.9 g/dl (32.0-36.5); MONO # 0.8 10^3/uL (0.0-0.8); MONO % 21.6 % (0.0-5.0); NEUTROPHILS # 1.8 10^3/uL (1.5-8.5); PLATELET COUNT, AUTOMATED 146 10^3/uL (150-450); RED BLOOD COUNT 4.13 10^6/uL (4.30-6.10); WHITE BLOOD COUNT 3.8 10^3/uL (4.0-10.0)
[2020-04-17 14:54] LABS: ALBUMIN 3.7 GM/DL (3.2-5.2); ALT/SGPT 27 U/L (12-78); BILIRUBIN,DIRECT < 0.1 MG/DL (0.0-0.2); BILIRUBIN,TOTAL 0.1 MG/DL (0.2-1.0); BLOOD UREA NITROGEN 13 MG/DL (7-18); C REACTIVE PROTEIN QUANTITATIV 4.85 MG/DL (0.00-0.30); CALCIUM LEVEL 8.6 MG/DL (8.8-10.2); CARBON DIOXIDE LEVEL 28 MEQ/L (21-32); CHLORIDE LEVEL 106 MEQ/L (98-107); CK-MB VALUE MASS < 1.0 NG/ML (<3.6); CPK CREATINE PHOSPHOKINASE 61 U/L (39-308); CREATININE FOR GFR 0.85 MG/DL (0.70-1.30); FERRITIN 58 NG/ML (26-388); GLOMERULAR FILTRATION RATE > 60.0 (>49); GLUCOSE, FASTING 104 MG/DL (70-100); LDH LACTATE DEHYDROGENASE 174 U/L (87-241); MB/CK RELATIVE INDEX 1.64 (< OR =4); NT-PRO BNP 81 PG/ML (<125); POTASSIUM SERUM 4.4 MEQ/L (3.5-5.1); SODIUM LEVEL 139 MEQ/L (136-145); TOTAL PROTEIN 6.9 GM/DL (6.4-8.2); TROPONIN I < 0.02 NG/ML (< 0.10)
[2020-04-17 15:02] LABS: RSV AMPLIFICATION NEGATIVE (NEGATIVE)
--- NOTE | 2020-04-17 15:42 | REP ---
INDICATION: DYSPNEA/COUGH COMPARISON: 02/04/2020 TECHNIQUE: Portable AP view of the chest FINDINGS: The mediastinum and cardiac silhouette are stable and within normal limits for portable technique. The lung lofton are clear without acute consolidation, effusion, or pneumothorax. Skeletal structures are intact. IMPRESSION: No acute cardiopulmonary process appreciated. <Electronically signed by Edy Melendez > 04/17/20 1498
[2020-04-17 16:48] LABS: PHENOBARBITAL LEVEL 19.1 UG/ML (15.0-40.0); PHENYTOIN (DILANTIN) 5.4 UG/ML (10.0-20.0)
[2020-04-17] MEDS ORDERED: ACETAMINOPHEN TAB 650MG DOSE (2X325MG) PO PRN (17:30)
[2020-04-17] MEDS ORDERED: LACTULOSE 20 GM/30 ML SYRUP UD PO PRN (17:30)
[2020-04-17] MEDS ORDERED: BISACODYL 10 MG SUPP PR PRN (17:30)
[2020-04-17] MEDS ORDERED: PRAZ1CAP PO (17:31)
--- NOTE | 2020-04-17 17:50 | HPEPDOC ---
[facility] Medical History & Physical Date of Admission Apr 17, 2020 Date of Service: Apr 17, 2020 History and Physical Chief complaint: Presented to the ER with reported increased sleep after eating lunch History of present illness: Patient is a 64 year old male who presented to [facility] from a custodial because of a reported change in mental status. Patient is unable to provide any details and information was collected from ER provider. I have contacted his father (Hemanth Del Rio) and sister (Víctor Morales) at [phone]. They have provided me with the contact number for this career services manager at [facility], Angela ([phone]). However, after multiple attempts, she has not answered her phone. Patient was seen and examined at the bedside, appears to be comfortable on room air saturating between 91-95%. The only question patient was able to answer was that he was hungry and he had reported yes. While in the room. Patient was moving all 4 extremities and attempting to remove his adult diaper. Past Medical History: Developmental disability Hydrocephalus s/p STAMP MACHINE SERVICER shunt placement History of pituitary tumor HTN CVA (1985 and 1988) DLP Seizure disorder DONNA on CPAP BPH Past Surgical History: Laparoscopic cholecystectomy Allergies: See below Medications: See below Family History: - No history of malignancies Social History: - Resides at the [facility] custodial Review of Systems: Unable to obtain review of systems is patient is nonverbal Physical exam: - Vitals: BP [134/58], HR [75], RR [18], Sat [96%NC1L], Temp [97.6F] - General: Lying in bed, Appears comfortable, Awake / Alert - HEENT: NC, AT, PERRLA - CVS: RRR, +S1S2 - Lungs: Fair air entry bilaterally, No appreciable wheezing / rales / rhonchi - Abdomen: Soft, Non-distended, Non-tender - Extremities: No lower extremity edema, No calf tenderness - Neuro: No focal motor or sensory deficit - Skin: No visible rashes Labs: See below Imaging: CXR 04/17: No acute cardiopulmonary process appreciated. EKG: See below Assessment and Plan: Weakness / Fatigue - likely 2/2 COVID19 infection - Patient was able to answer simple questions and follow commands - Patient is able to move all 4 extremities during my exam - No focal deficits noted - Will consider PT in AM Mild Hypoxia / Saturation <92% - likely 2/2 COVID19 infection - Patient is saturating between 91 and 95% while on room air - Physical was unrevealing - No significant elevation of inflammatory markers; will trend - Imaging negative - Will check blood cultures / UA / sputum - Will start Dexamethasone - Will start incentive spirometry / acapella - c/w Supplemental oxygen to maintain saturation >92% Normocytic anemia - Hg appears to be at baseline Leukopenia - likely 2/2 COVID19 infection - Less likely 2/2 bacterial infection - Will check procalcitonin / Blood cultures - Will hold off on antibiotics at this time Developmental disability / Hydrocephalus - s/p STAMP MACHINE SERVICER shunt placement - See below HTN - BP well controlled - Currently not on medications CVA (1985 and 1988) - c/w Simvastatin DLP - c/w Simvastatin DONNA on CPAP - No CPAP device with patient; unable to contact career services manager - Will c/w DONNA protocol Seizure disorder - No recent seizures reported - c/w Lamotrigine, Phenobarbital, Phenytoin, Keppra Anxiety / Depression / Insomnia - c/w Paroxetine, Clonazepam, Hydroxyzine, Quetiapine, Trazodone Constipation - c/w Bowel regimen as ordered BPH - c/w Prazosin, Tamsulosin DVT prophylaxis - Will start Lovenox Vital Signs Vital Signs Date Time Temp Pulse Resp B/P (MAP) Pulse Ox O2 Delivery O2 Flow Rate FiO2 04/17/20 14:28 97.6 75 18 134/58 96 Nasal Cannula 1.0 Laboratory Data Labs 24H Laboratory Tests 2 04/17/20 14:13: Immature Granulocyte % (Auto) 0.3, Neutrophils (%) (Auto) 47.0, Lymphocytes (%) (Auto) 26.6, Monocytes (%) (Auto) 21.6H, Eosinophils (%) (Auto) 3.7H, Basophils (%) (Auto) 0.8, Neutrophils # (Auto) 1.8, Lymphocytes # (Auto) 1.0L, Monocytes # (Auto) 0.8, Eosinophils # (Auto) 0.1, Basophils # (Auto) 0.0, Nucleated Red Blood Cells % (auto) 0.0, D-Dimer, Quantitative 616.10H, Blood Gas Bicarbonate Standard 23.7, Venous Blood pH 7.256L, Venous Blood Partial Pressure CO2 65.1H, Venous Blood Partial Pressure O2 40.0, Venous Blood Total Carbon Dioxide 30.3H, Venous Blood HCO3 28.3H, Venous Blood Oxygen Saturation 67.8, Venous Blood Base Excess -0.2, Anion Gap 5L, Glomerular Filtration Rate > 60.0, Lactic Acid Level 1.0, Calcium Level 8.6L, Ferritin 58, Total Bilirubin 0.1L, Direct Bilirubin < 0.1, Aspartate Amino Transf (AST/SGOT) 14, Alanine Aminotransferase (ALT/SGPT) 27, Alkaline Phosphatase 137H, Lactate Dehydrogenase 174, Total Creatine Kinase 61, Creatine Kinase MB < 1.0, Creatine Kinase MB Relative Index 1.64, Troponin I < 0.02, C-Reactive Protein, Quantitative 4.85H, YX-Xxy-F-Type Natriuretic Peptide 81, Total Protein 6.9, Albumin 3.7, Albumin/Globulin Ratio 1.2, Thyroid Stimulating Hormone (TSH) 1.510, Coronavirus (COVID-19)(PCR) POSITIVEA, Influenza Type A (RT-PCR) NEGATIVE, Influenza Type B (RT-PCR) NEGATIVE, Respirat ory Syncytial Virus (PCR) NEGATIVE 04/17/20 15:40: Phenytoin (Dilantin) Level 5.4L, Phenobarbital Level 19.1 CBC/BMP Laboratory Tests 04/17/20 14:13 Microbiology Microbiology 04/17/20 Blood Culture, Received Pending 04/17/20 Blood Culture, Received Pending Home Medications Scheduled Calcium Carbonate/Vitamin D3 (Calcium 500-Vit D3 200 Tablet) 1 Tab Tab, 1 TAB PO TID QAM, 1500, QHS Clonazepam (Clonazepam) 0.5 Mg Tab, 0.25 MG PO BID TAKES AT 1200 AND 1600 Ergocalciferol (Vitamin D2) (Drisdol) 1,250 Mcg Capsule, 1,250 MCG PO 1XWK DAY Fluticasone Propionate (Flonase Allergy Relief) 50 Mcg/Act Spr, 2 SPRAYS NARES DAILY Hydroxyzine Pamoate (Hydroxyzine Pamoate) 25 Mg Capsule, 25 MG PO QID Lamotrigine (Lamotrigine) 200 Mg Tab, 200 MG PO DAILY Lamotrigine (Lamictal) 200 Mg Tab, 400 MG PO QHS Lubiprostone (Amitiza) 24 Mcg Cap, 24 MCG PO DAILY Magnesium Hydroxide (Milk of Magnesia) 400 Mg/5 Ml Oral.susp, 30 ML PO DAILY WITH 3RD DAY OF NO BM Paroxetine HCl (Paxil) 40 Mg Tab, 40 MG PO DAILY 60MG TOTAL Paroxetine HCl (Paroxetine HCl) 20 Mg Tablet, 20 MG PO DAILY 60MG TOTAL Phenobarbital (Phenobarbital) 64.8 Mg Tab, 64.8 MG PO BID Phenytoin (Dilantin) 30 Mg Capsule, 30 MG PO DAILY @ 1500 Phenytoin Sodium Extended (Dilantin) 100 Mg Cap, 100 MG PO BID Polyethylene Glycol 3350 (Miralax) 119 Gm Powder, 17 GM PO BID Prazosin Hcl (Prazosin HCl) 1 Mg Capsule, 1 MG PO QHS Quetiapine Fumarate (Seroquel) 50 Mg Tab, 50 MG PO BID TAKES WITH 300MG FOR TOTAL OF 350MG Quetiapine Fumarate (Quetiapine Fumarate) 300 Mg Tab, 300 MG PO BID TAKES WITH 50 MG FOR TOTAL OF 350 MG Sennosides (Senna Lax) 8.6 Mg Tablet, 17.2 MG PO QHS Simvastatin (Simvastatin) 20 Mg Tab, 20 MG PO QHS Tamsulosin HCl (Flomax) 0.4 Mg Cap, 0.4 MG PO QHS Trazodone HCl (Trazodone HCl) 100 Mg Tab, 200 MG PO QHS levETIRAcetam (levETIRAcetam) 500 Mg Tablet, 1,000 MG PO BID Scheduled PRN Acetaminophen (Tylenol) 325 Mg Tablet, 650 MG PO Q6H PRN for PAIN / FEVER Bisacodyl (Bisacodyl) 10 Mg Supp.rect, 10 MG IN DAILY PRN for CONSTIPATION ON DAY 4 WITH NO BM Lactulose (Lactulose) 10 Gm/15 Ml Solution, 30 ML PO BID PRN for CONSTIPATION Allergies Coded Allergies: asenapine (Verified Allergy, Unknown, unknown, 05/29/19) felbamate (Verified Allergy, Unknown, 03/06/19) haloperidol (Verified Allergy, Unknown, 03/06/19) lurasidone (Verified Allergy, Unknown, 03/06/19) TAPE (Verified Adverse Reaction, Mild, rash, 04/17/20) LINDA ZAPIEN MD Apr 17, 2020 17:50
[2020-04-17] MEDS ORDERED: PILL CUTTER 1 EACH XX PRN (18:15)
[2020-04-17] MEDS ORDERED: LORazepam 2 MG/ML VIAL IM STA (19:32)
[2020-04-17 20:14] LABS: HEPATITIS B SURFACE ANTIGEN NEGATIVE (NEGATIVE)
[2020-04-17 20:43] LABS: HIV 1&2 SCREEN CENTAUR NEGATIVE (NEGATIVE)
[2020-04-17] MEDS: MIRALAX *UNIT DOSE* 17GM PACKET PO SCH (21:00)
[2020-04-17 22:00] VITALS: BP 115/82
[2020-04-17] MEDS: traZODone 100 MG TAB PO SCH (22:39)
[2020-04-17] MEDS: hydrOXYzine 25 MG TAB PO SCH (22:39)
[2020-04-17] MEDS: QUEtiapine FUMARATE 100 MG TAB PO SCH (22:39)
[2020-04-17] MEDS: PHENYTOIN ER 100 MG CAP PO SCH (22:40)
[2020-04-17] MEDS: CALCIUM/VITAMIN D 500 MG TAB PO SCH (22:40)
[2020-04-17] MEDS: lamoTRIgine 100MG TAB PO SCH (22:40)
[2020-04-17] MEDS: SIMVASTATIN 20 MG TAB PO SCH (22:40)
[2020-04-17] MEDS: TAMSULOSIN 0.4 MG CAP PO SCH (22:41)
[2020-04-17] MEDS: SENNA 8.6 MG TAB (SENOKOT) PO SCH (22:41)
[2020-04-17] MEDS: PRAZOSIN 1 MG CAP PO SCH (22:41)
[2020-04-17] MEDS: QUEtiapine FUMARATE 50 MG TAB PO SCH (22:42)
[2020-04-17] MEDS: levETIRAcetam 250MG TABLET (KEPPRA) PO SCH (22:47)
[2020-04-17] MEDS: PHENobarbitaL 30 MG TAB PO SCH (22:52)
[2020-04-17] MEDS: dexameTHASONE 4 MG/ML 1ML VIAL (J1100 PER 1MG) IV SCH (22:52)
[2020-04-18] MEDS ORDERED: UNRESOLVED CLARIFICATION ENTRY XX SCH (00:01)
--- NOTE | 2020-04-18 00:35 | ECGEPIP ---
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
[2020-04-18 06:00] VITALS: BP 121/80
[2020-04-18 06:45] LABS: BASO % 0.7 % (0.0-1.0); HEMATOCRIT 36.7 % (42.0-52.0); HEMOGLOBIN 11.9 g/dl (13.5-17.5); LYMPH # 0.7 10^3/uL (1.5-5.0); LYMPH % 17.9 % (24.0-44.0); MEAN CORPUSCULAR HEMOGLOBIN 29.5 pg (27.0-33.0); MEAN CORPUSCULAR HGB CONC 32.4 g/dl (32.0-36.5); MEAN CORPUSCULAR VOLUME 90.8 fl (80.0-96.0); MONO # 0.4 10^3/uL (0.0-0.8); MONO % 10.8 % (0.0-5.0); NEUTROPHILS # 2.9 10^3/uL (1.5-8.5); NEUTROPHILS % 70.4 % (36.0-66.0); PLATELET COUNT, AUTOMATED 146 10^3/uL (150-450); RED BLOOD COUNT 4.04 10^6/uL (4.30-6.10); WHITE BLOOD COUNT 4.1 10^3/uL (4.0-10.0)
[2020-04-18 06:57] LABS: INR 0.97; PROTHROMBIN TIME 13.1 SECONDS (12.5-14.3)
[2020-04-18 06:58] LABS: PARTIAL THROMBOPLASTIN TIME 35.4 SECONDS (24.2-38.5)
[2020-04-18 07:17] LABS: ALBUMIN 3.5 GM/DL (3.2-5.2); ALT/SGPT 28 U/L (12-78); BILIRUBIN,DIRECT < 0.1 MG/DL (0.0-0.2); BILIRUBIN,TOTAL 0.1 MG/DL (0.2-1.0); BLOOD UREA NITROGEN 13 MG/DL (7-18); CALCIUM LEVEL 8.2 MG/DL (8.8-10.2); CARBON DIOXIDE LEVEL 30 MEQ/L (21-32); CHLORIDE LEVEL 104 MEQ/L (98-107); CREATININE FOR GFR 0.88 MG/DL (0.70-1.30); FERRITIN 66 NG/ML (26-388); GLOMERULAR FILTRATION RATE > 60.0 (>49); GLUCOSE, FASTING 115 MG/DL (70-100); MAGNESIUM LEVEL 2.2 MG/DL (1.8-2.4); POTASSIUM SERUM 4.2 MEQ/L (3.5-5.1); SODIUM LEVEL 141 MEQ/L (136-145); TOTAL PROTEIN 6.5 GM/DL (6.4-8.2)
[2020-04-18] MEDS: MIRALAX *UNIT DOSE* 17GM PACKET PO SCH ×2 (09:00→20:20)
[2020-04-18] MEDS ORDERED: PARoxetine 20MG TABLET PO SCH (09:00)
--- NOTE | 2020-04-18 09:48 | IPNPDOC ---
Text Note Date of Service The patient was seen on 04/18/20. NOTE Subjective/Objective: Patient seen and examined at bedside by Dr. Whitman. As per attending, physical examination unremarkable and unchanged from yesterday. Patient appears fatigued but arousal. Has sitter in place. Poor historian given developmental delay. Spo ke with father today, patient is AO 1x2 at baseline, although he has not seen the patient in 3-4 months. Unable to reach combination worker at [employer] [employer] retirement, Angela ([phone]) Assessment/Plan: #Weakness/Fatigue/AMS -Likely 2/2 COVID infection (diagnosed 04/17/2020). Vitals stable. Renal labs WNL. -Unclear baseline. As per father, patient as AO x 1/2. Unable to reach combination worker -Patient is on many neurodepressive medications including seizure medications, seroquel etc. -Klonipin held for now. Re-assess mental function tomorrow #COVID + -Diagnosed 04/17/2020 -Last fever 100.8 9pm 04/17 -CXR WNL -COVID labs WNL apparent from slightly elevated CRP: 4.85 and slightly elevated D-Dimer: 616 -Decadron 6 mg IV started. to continue for 10 days -Tylenol PRN on board -Incentive spirometer/acapella ordered -BC ordered. UA unremarkable. Pending sputum culture collection -Patient may return to retirement once fever free for 24 hours. Self-isolation period to finish Apr 27, provided patient meets state guidelines #Leukopenia (resolved) -Likely 2/2 COVID -BC/sputum ordered. -Procalcitonin WNL. #Normocytic anemia -Hb baseline around 12 -Workup outpatient #Developmental disability / Hydrocephalus - s/p hx of CANDY SEPARATOR ENROBING shunt placement #HTN - BP well controlled without medications #CVA (1985 and 1988) - c/w Simvastatin #Hypercholesterolemia - c/w Simvastatin 20 mg #DONNA on CPAP - No CPAP device with patient; unable to contact director of career services - Will c/w DONNA protocol #Seizure -No known recent seizures - c/w home medications Lamotrigine, Phenobarbital, Phenytoin, Keppra # Anxiety / Depression / Insomnia - c/w Paroxetine, Hydroxyzine, Quetiapine, Trazodone - clonazepam held given AMS and unclear baseline #Constipation - Home regiment: Senna QHS. -Hospital regiment: Bisacodyl + Lactulose BID -Monitor #BPH - c/w Prazosin, Tamsulosin Diet: Mechanical soft diet DVT PPX: Enoxaparin 40 daily Dispo: Back to retirement after 24 hours fever free. Case discussed with Dr. nAtonette Hunter MD Hospitalist Resident Pedro SWEET, I+O Pedro SWEET I+O Laboratory Tests 04/17/20 14:13 04/18/20 05:39 Vital Signs Date Time Temp Pulse Resp B/P (MAP) Pulse Ox O2 Delivery O2 Flow Rate FiO2 04/18/20 06:00 99.0 89 18 121/80 (94) 91 Room Air 04/17/20 14:28 1.0 I&O- Last 24 Hours up to 6 AM 04/18/20 05:59 Intake Total 500 ml Balance 500 ml GME ATTESTATION GME ATTESTATION My faculty preceptor for this patient encounter was physically present during the encounter and was fully available. All aspects of the patient interview, examination, medical decision making process, and medical care plan development were reviewed and approved by the faculty preceptor. The faculty preceptor is aware and concurs with the plan as stated in the body of this note and will attest to such by his/her cosignature. ATTENDING NOTE I, Ti Whitman MD, have independently examined this patient and performed my own physical exam, as well as reviewed the documentation and edited where necessary. I have discussed in detail with the resident / student the findings and plan of treatment as documented by the resident / student and edited their note. I agree with their findings and treatment plan and have edited their documentation. TATA HUNTER M.D.,PGY-2 Apr 18, 2020 09:48 TI WHITMAN MD Apr 20, 2020 12:15
[2020-04-18] MEDS: QUEtiapine FUMARATE 100 MG TAB PO SCH ×2 (09:59→20:20)
[2020-04-18 10:00] VITALS: BP 146/73
[2020-04-18] MEDS: lamoTRIgine 100MG TAB PO SCH ×2 (10:00→20:19)
[2020-04-18] MEDS: PHENobarbitaL 30 MG TAB PO SCH ×2 (10:01→20:19)
[2020-04-18] MEDS: PHENYTOIN ER 100 MG CAP PO SCH ×2 (10:02→20:20)
[2020-04-18] MEDS: levETIRAcetam 250MG TABLET (KEPPRA) PO SCH ×2 (10:02→20:19)
[2020-04-18] MEDS: hydrOXYzine 25 MG TAB PO SCH ×5 (10:02→20:19)
[2020-04-18] MEDS: CALCIUM/VITAMIN D 500 MG TAB PO SCH ×3 (10:02→20:18)
[2020-04-18] MEDS: QUEtiapine FUMARATE 50 MG TAB PO SCH ×2 (10:02→20:18)
[2020-04-18] MEDS: PARoxetine 20MG TABLET PO SCH (10:03)
[2020-04-18] MEDS: dexameTHASONE 4 MG/ML 1ML VIAL (J1100 PER 1MG) IV SCH (10:03)
[2020-04-18] MEDS: ENOXAPARIN 40MG/0.4ML SYRINGE (J1650 PER 10MG) SC SCH (10:06)
[2020-04-18] MEDS: MOM 30ML SUSPENSION UDC PO SCH (10:07)
[2020-04-18] MEDS: FLUTICASONE PROP 0.05% NASAL SPRAY 16 GM (FLONASE) NARES SCH (10:07)
[2020-04-18] MEDS: clonazePAM 0.5 MG TAB PO SCH ×2 (12:00→16:00)
[2020-04-18 14:00] VITALS: BP 108/63
[2020-04-18] MEDS: LACTULOSE 20 GM/30 ML SYRUP UD PO SCH ×2 (14:24→20:18)
[2020-04-18 16:00] VITALS: BP 109/59
[2020-04-18] MEDS: PHENYTOIN ER 30 MG CAP PO SCH (16:07)
[2020-04-18 20:14] VITALS: BP 157/77
[2020-04-18 20:18] VITALS: BP 157/77
[2020-04-18] MEDS: traZODone 100 MG TAB PO SCH (20:18)
[2020-04-18] MEDS: PRAZOSIN 1 MG CAP PO SCH (20:18)
[2020-04-18] MEDS: SIMVASTATIN 20 MG TAB PO SCH (20:18)
[2020-04-18] MEDS: TAMSULOSIN 0.4 MG CAP PO SCH (20:19)
[2020-04-18] MEDS: guaiFENesin 200 MG TAB PO SCH (20:19)
[2020-04-18] MEDS: SENNA 8.6 MG TAB (SENOKOT) PO SCH (20:20)
[2020-04-19] MEDS: guaiFENesin 200 MG TAB PO SCH ×4 (01:00→13:56)
[2020-04-19 08:49] LABS: BASO % 0.6 % (0.0-1.0); EOS % 0.9 % (0.0-3.0); HEMATOCRIT 36.2 % (42.0-52.0); HEMOGLOBIN 11.6 g/dl (13.5-17.5); LYMPH # 1.3 10^3/uL (1.5-5.0); LYMPH % 38.5 % (24.0-44.0); MEAN CORPUSCULAR HEMOGLOBIN 29.4 pg (27.0-33.0); MEAN CORPUSCULAR VOLUME 91.6 fl (80.0-96.0); MONO # 0.6 10^3/uL (0.0-0.8); MONO % 15.8 % (0.0-5.0); NEUTROPHILS # 1.5 10^3/uL (1.5-8.5); NEUTROPHILS % 44.2 % (36.0-66.0); PLATELET COUNT, AUTOMATED 138 10^3/uL (150-450); RED BLOOD COUNT 3.95 10^6/uL (4.30-6.10); WHITE BLOOD COUNT 3.5 10^3/uL (4.0-10.0)
[2020-04-19 09:10] LABS: ALBUMIN 3.3 GM/DL (3.2-5.2); ALT/SGPT 24 U/L (12-78); BILIRUBIN,DIRECT < 0.1 MG/DL (0.0-0.2); BILIRUBIN,TOTAL 0.1 MG/DL (0.2-1.0); BLOOD UREA NITROGEN 12 MG/DL (7-18); C REACTIVE PROTEIN QUANTITATIV 9.88 MG/DL (0.00-0.30); CALCIUM LEVEL 8.1 MG/DL (8.8-10.2); CARBON DIOXIDE LEVEL 31 MEQ/L (21-32); CHLORIDE LEVEL 105 MEQ/L (98-107); CREATININE FOR GFR 0.82 MG/DL (0.70-1.30); FERRITIN 77 NG/ML (26-388); GLOMERULAR FILTRATION RATE > 60.0 (>49); GLUCOSE, FASTING 88 MG/DL (70-100); MAGNESIUM LEVEL 2.3 MG/DL (1.8-2.4); POTASSIUM SERUM 3.8 MEQ/L (3.5-5.1); SODIUM LEVEL 142 MEQ/L (136-145); TOTAL PROTEIN 6.2 GM/DL (6.4-8.2)
[2020-04-19] MEDS: PARoxetine 20MG TABLET PO SCH (09:19)
[2020-04-19] MEDS: lamoTRIgine 100MG TAB PO SCH (09:19)
[2020-04-19] MEDS: MOM 30ML SUSPENSION UDC PO SCH (09:20)
[2020-04-19] MEDS: QUEtiapine FUMARATE 50 MG TAB PO SCH (09:20)
[2020-04-19] MEDS: CALCIUM/VITAMIN D 500 MG TAB PO SCH (09:20)
[2020-04-19] MEDS: PHENYTOIN ER 100 MG CAP PO SCH (09:20)
[2020-04-19] MEDS: PHENobarbitaL 30 MG TAB PO SCH (09:20)
[2020-04-19] MEDS: hydrOXYzine 25 MG TAB PO SCH ×2 (09:20→13:55)
[2020-04-19] MEDS: QUEtiapine FUMARATE 100 MG TAB PO SCH (09:20)
[2020-04-19] MEDS: LACTULOSE 20 GM/30 ML SYRUP UD PO SCH (09:20)
[2020-04-19] MEDS: levETIRAcetam 250MG TABLET (KEPPRA) PO SCH (09:20)
[2020-04-19] MEDS: MIRALAX *UNIT DOSE* 17GM PACKET PO SCH (09:22)
[2020-04-19 09:25] LABS: INR 1.01; PROTHROMBIN TIME 13.5 SECONDS (12.5-14.3)
[2020-04-19 09:26] LABS: PARTIAL THROMBOPLASTIN TIME 35.2 SECONDS (24.2-38.5)
[2020-04-19] MEDS: FLUTICASONE PROP 0.05% NASAL SPRAY 16 GM (FLONASE) NARES SCH (09:27)
[2020-04-19] MEDS: ENOXAPARIN 40MG/0.4ML SYRINGE (J1650 PER 10MG) SC SCH (09:27)
[2020-04-19 12:00] VITALS: BP 128/60
--- NOTE | 2020-04-19 12:17 | DS.PDOC ---
Discharge Summary General Date of Admission Apr 17, 2020 at 17:43 Date of Discharge 04/19/2020 Discharge Summary PROCEDURES PERFORMED DURING STAY: None ADMITTING DIAGNOSES: 1. Weakness/Fatigue/AMS DISCHARGE DIAGNOSES: 1. Weakness 2/2 COVID COMPLICATIONS/CHIEF COMPLAINT: Covid-19. HISTORY OF PRESENT ILLNESS: Patient is a 64 year old male who presented to [facility] from a long-term because of a reported change in mental status. Patient is unable to provide any details and information was collected from ER provider. I have contacted his father (Hemanth Del Rio) and sister (Víctor Morales) at [phone]. They have provided me with the contact number for this child day care provider at [facility], Angela ([phone]). However, after multiple attempts, she has not answered her phone. Patient was seen and examined at the bedside, appears to be comfortable on room air saturating between 91-95%. The only question patient was able to answer was that he was hungry and he had reported yes. While in the room. Patient was moving all 4 extremities and attempting to remove his adult diaper. HOSPITAL COURSE: 64 yo M hx of developmental disability with hydrocephalus s/p [employer] shunt placem ent, hx of pituitary tumor, HTN, CVA (1985 and 1988), Dyslipidemia, seizure disorder, BPH and DONNA on CPAP presenting from [facility] long-term due to AMS/Weakness. As per father, patient is AO x 1/2 at baseline, although he has not seen the patient in 3-4 months. While in the ED, patient was diagnosed to be COVID positive on 04/17/2020. Given decadron 6 mg daily with plans to continue with 10 days. BC ordered of which 1/2 bottles +, likely contamination, low concerns for infection. UA unremarkable. Incentive spirometer and acapella ordered with improvement of patients O2 status to 93% on RA. Given his poor mental status, his home medications of atarax and klonipin were held. Reversible causes including ammonia, TSH, HIV ordered and were negative. Pending B12 and folate labs as potential other causes of AMS, although this can be followed up as outpatient as throughout hospital stay, patient continued to improve. On 04/19/2020, patients awake and alert, AO x 1/2, speaking in full sentences with 5/5 power in all limbs. DISCHARGE MEDICATIONS: Please see below. ALLERGIES: Please see below. PHYSICAL EXAMINATION ON DISCHARGE: General: laying in bed. Awake and alert. AO x 1/2. Helmet on head. Obese HEENT: NC, AT, PERRLA CVS: RRR, +S1S2 Lungs: Lungs clear to auscultation. No wheezing, crackles, rhonchi appreciated Abdomen: Soft, Non-distended, Non-tender Extremities: No lower extremity edema, No calf tenderness Neuro: No focal motor or sensory deficit. Power 5/5 bilaterally in all extremities. Skin: No visible rashes LABORATORY DATA: Please see below. IMAGING: CXR 04/17: No acute cardiopulmonary process appreciated. ACTIVITY: as tolerated DIET: Mechanical soft, or as tolerated DISCHARGE PLAN: back to [facility] home. To self isolate x 10 days until 04/27 or at least 3 days fever free without the use of antipyretics, whichever is longer DISCHARGE INSTRUCTIONS: 1. Patient to follow up with PCP within 1 week of discharge 2. Should symptoms fail to improve, or worsen, please return to the emergency department 3. Please take medications exactly as prescribed. 4. Self isolate for at least 10 days until 04/27, or at least 3 days fever free without the use of antipyretics, whichever is longer ITEMS TO FOLLOWUP ON ON OUTPATIENT: 1. Discuss with PCP regarding restarting klonipin. May continue to take atarax on discharge DISCHARGE CONDITION: stable TIME SPENT ON DISCHARGE: Greater than 40 minutes. Vital Signs/I&Os Vital Signs Date Time Temp Pulse Resp B/P (MAP) Pulse Ox O2 Delivery O2 Flow Rate FiO2 04/19/20 09:36 93 Room Air 04/18/20 20:30 1.0 04/18/20 20:18 157/77 04/18/20 20:14 98.2 66 19 I&O- Last 24 Hours up to 6 AM 04/19/20 05:59 Intake Total 540 ml Balance 540 ml Laboratory Data Labs 24H Laboratory Tests 2 04/19/20 07:53: Immature Granulocyte % (Auto) 0.0, Neutrophils (%) (Auto) 44.2, Lymphocytes (%) (Auto) 38.5, Monocytes (%) (Auto) 15.8H, Eosinophils (%) (Auto) 0.9, Basophils (%) (Auto) 0.6, Neutrophils # (Auto) 1.5, Lymphocytes # (Auto) 1.3L, Monocytes # (Auto) 0.6, Eosinophils # (Auto) 0.0, Basophils # (Auto) 0.0, Nucleated Red Blood Cells % (auto) 0.0, Prothrombin Time 13.5, Prothromb Time International Ratio 1.01, Activated Partial Thromboplast Time 35.2, Fibrinogen 457H, Anion Gap 6L, Glomerular Filtration Rate > 60.0, Calcium Level 8.1L, Magnesium Level 2.3, Ferritin 77, Total Bilirubin 0.1L, Direct Bilirubin < 0.1, Aspartate Amino Transf (AST/SGOT) 13, Alanine Aminotransferase (ALT/SGPT) 24, Alkaline Phospha tase 101, Ammonia 25, C-Reactive Protein, Quantitative 9.88H, Total Protein 6.2L, Albumin 3.3, Albumin/Globulin Ratio 1.1 CBC/BMP Laboratory Tests 04/19/20 07:53 Microbiology Microbiology 04/17/20 Blood Culture - Preliminary, Resulted No growth after 24 hours . All specim... 04/17/20 Blood Culture - Preliminary, Resulted Discharge Medications Scheduled Calcium Carbonate/Vitamin D3 (Calcium 500-Vit D3 200 Tablet) 1 Tab Tab, 1 TAB PO TID, (Reported) QAM, 1500, QHS Ergocalciferol (Vitamin D2) (Drisdol) 1,250 Mcg Capsule, 1,250 MCG PO 1XWK, (Reported) FRIDAY Fluticasone Propionate (Flonase Allergy Relief) 50 Mcg/Act Spr, 2 SPRAYS NARES DAILY, (Reported) Hydroxyzine Pamoate (Hydroxyzine Pamoate) 25 Mg Capsule, 25 MG PO QID, (Reported) Lamotrigine (Lamotrigine) 200 Mg Tab, 200 MG PO DAILY, (Reported) Lamotrigine (Lamictal) 200 Mg Tab, 400 MG PO QHS, (Reported) Lubiprostone (Amitiza) 24 Mcg Cap, 24 MCG PO DAILY, (Reported) Magnesium Hydroxide (Milk of Magnesia) 400 Mg/5 Ml Oral.susp, 30 ML PO DAILY, (Reported) WITH 3RD DAY OF NO BM Paroxetine HCl (Paxil) 40 Mg Tab, 40 MG PO DAILY, (Reported) 60MG TOTAL Paroxetine HCl (Paroxetine HCl) 20 Mg Tablet, 20 MG PO DAILY, (Reported) 60MG TOTAL Phenobarbital (Phenobarbital) 64.8 Mg Tab, 64.8 MG PO BID, (Reported) Phenytoin (Dilantin) 30 Mg Capsule, 30 MG PO DAILY, (Reported) @ 1500 Phenytoin Sodium Extended (Dilantin) 100 Mg Cap, 100 MG PO BID, (Reported) Polyethylene Glycol 3350 (Miralax) 119 Gm Powder, 17 GM PO BID, (Reported) Prazosin Hcl (Prazosin HCl) 1 Mg Capsule, 1 MG PO QHS, (Reported) Prednisone (Prednisone) 20 Mg Tablet, 20 MG PO DAILY Quetiapine Fumarate (Seroquel) 50 Mg Tab, 50 MG PO BID, (Reported) TAKES WITH 300MG FOR TOTAL OF 350MG Quetiapine Fumarate (Quetiapine Fumarate) 300 Mg Tab, 300 MG PO BID, (Reported) TAKES WITH 50 MG FOR TOTAL OF 350 MG Sennosides (Senna Lax) 8.6 Mg Tablet, 17.2 MG PO QHS, (Reported) Simvastatin (Simvastatin) 20 Mg Tab, 20 MG PO QHS, (Reported) Tamsulosin HCl (Flomax) 0.4 Mg Cap, 0.4 MG PO QHS, (Reported) Trazodone HCl (Trazodone HCl) 100 Mg Tab, 200 MG PO QHS, (Reported) levETIRAcetam (levETIRAcetam) 500 Mg Tablet, 1,000 MG PO BID, (Reported) Scheduled PRN Acetaminophen (Tylenol) 325 Mg Tablet, 650 MG PO Q6H PRN for PAIN / FEVER, (Reported) Bisacodyl (Bisacodyl) 10 Mg Supp.rect, 10 MG OK DAILY PRN for CONSTIPATION, (Reported) ON DAY 4 WITH NO BM Lactulose (Lactulose) 10 Gm/15 Ml Solution, 30 ML PO BID PRN for CONSTIPATION, (Reported) Allergies Coded Allergies: asenapine (Verified Allergy, Unknown, unknown, 05/29/19) felbamate (Verified Allergy, Unknown, 04/17/20) haloperidol (Verified Allergy, Unknown, 04/17/20) lurasidone (Verified Allergy, Unknown, 04/17/20) TAPE (Verified Adverse Reaction, Mild, rash, 04/17/20) GME ATTESTATION GME ATTESTATION My faculty preceptor for this patient encounter was physically present during the encounter and was fully available. All aspects of the patient interview, examination, medical decision making process, and medical care plan development were reviewed and approved by the faculty preceptor. The faculty preceptor is aware and concurs with the plan as stated in the body of this note and will attest to such by his/her cosignature. ATTENDING NOTE I, Ti Whitman MD, have independently examined this patient and performed my own physical exam, as well as reviewed the documentation and edited where necessary. I have discussed in detail with the resident / student the findings and plan of treatment as documented by the resident / student and edited their note. I agree with their findings and treatment plan and have edited their documentation. The patient is medically optimized for discharge. The blood culture final results came out to be staph epi only one bottle out of 2, and this thought to be a contamination and no requirement of any repeat blood cultures or any antiemetics. The patient will return back to the long-term. TATA SIMPSON M.D.,PGY-2 Apr 19, 2020 12:17 TI WHITMAN MD Apr 20, 2020 12:13
[2020-04-19] MEDS: clonazePAM 0.5 MG TAB PO SCH (13:55)
[2020-04-19] MEDS: PHENYTOIN ER 30 MG CAP PO SCH (13:57)
[2020-04-19] MEDS ORDERED: PRED20TA PO (14:05)
[2020-04-20 09:52] LABS: FOLATE 8.2 NG/ML (>5.4)
[2020-04-22] MEDS ORDERED: VITAMIN D 50,000 UNITS CAPSULE (ERGOCALCIFEROL 1.25MG) PO SCH (09:00)
[2020-04-25 16:32] LABS: LEVETIRACETAM (KEPPRA) 21.2 ug/mL (10.0-40.0)
== END 2020-04-19 17:00 | disposition home or self-care (01) | DRG 178 ==
LOC: EDBD 13:26 → M ED 13:26 → M ED INP 17:43 → M 4MAIN 21:22
PROVIDERS: ADMIT Internal Medicine; ATTEND Internal Medicine
DX: U07.1 COVID-19 (principal); G91.9 Hydrocephalus, unspecified; G40.909 Epilepsy, unspecified, not intractable, without status epilepticus; E23.6 Other disorders of pituitary gland; Z98.2 Presence of cerebrospinal fluid drainage device; F79 Unspecified intellectual disabilities; Z86.73 Personal history of transient ischemic attack (TIA), and cerebral infarction without residual deficits; E78.5 Hyperlipidemia, unspecified; N40.0 Benign prostatic hyperplasia without lower urinary tract symptoms; G47.33 Obstructive sleep apnea (adult) (pediatric); Z79.899 Other long term (current) drug therapy; Z88.8 Allergy status to other drugs, medicaments and biological substances; I10 Essential (primary) hypertension; D64.9 Anemia, unspecified; K59.00 Constipation, unspecified; F41.9 Anxiety disorder, unspecified; F32.9 Major depressive disorder, single episode, unspecified

== ENCOUNTER 2020-05-02 19:59 | Inpatient (IN) | payer MEDICARE, MEDICAID ==
[~2020-05-02] VITALS: Ht 185.4 cm; Wt 102.0 kg
[~2020-05-02 19:59] MED LIST changes: +FLON1SPR; +PRAZ1CAP PO; +PRED20TA PO
[2020-05-02 21:12] LABS: BASO # 0.1 10^3/uL (0.0-0.2); BASO % 0.7 % (0.0-1.0); EOS # 0.2 10^3/uL (0.0-0.5); EOS % 3.3 % (0.0-3.0); HEMATOCRIT 34.8 % (42.0-52.0); HEMOGLOBIN 10.9 g/dl (13.5-17.5); LYMPH % 27.7 % (24.0-44.0); MEAN CORPUSCULAR HEMOGLOBIN 28.7 pg (27.0-33.0); MEAN CORPUSCULAR HGB CONC 31.3 g/dl (32.0-36.5); MEAN CORPUSCULAR VOLUME 91.6 fl (80.0-96.0); MONO % 12.9 % (0.0-5.0); NEUTROPHILS % 54.7 % (36.0-66.0); PLATELET COUNT, AUTOMATED 212 10^3/uL (150-450); WHITE BLOOD COUNT 7.4 10^3/uL (4.0-10.0)
--- NOTE | 2020-05-02 21:14 | REPVR ---
PROCEDURE INFORMATION: Exam: CT Head Without Contrast Exam date and time: 05/02/2020 8:34 PM Age: 64 years old Clinical indication: Other: Seizure; Prior surgery; Surgery date: 6+ months; Surgery type: Shunt; Patient HX: PT unable to follow commands; Additional info: Multiple seizures TECHNIQUE: Imaging protocol: Computed tomography of the head without contrast. Radiation optimization: All CT scans at this facility use at least one of these dose optimization techniques: automated exposure control; mA and/or kV adjustment per patient size (includes targeted exams where dose is matched to clinical indication); or iterative reconstruction. COMPARISON: CT Head without contrast 02/04/2020 6:26 PM FINDINGS: Brain: See "Cerebral ventricles" finding. Cerebral ventricles: Stable ventricular size and configuration. Cystic lesion at the left parietal lobe is stable. Foci of encephalomalacia involving both frontal lobes. There is cerebellar and cerebral volume loss. Visualized brain is not acute intracranial hemorrhage. No midline shift. Bones/joints: Stable calvarial postoperative change. No definite acute calvarial fracture. Paranasal sinuses: Visualized sinuses are unremarkable. No fluid levels. Mastoid air cells: Visualized mastoid air cells are well aerated. Soft tissues: Unremarkable. Other findings: Superior right inferior left head are excluded from the field of view. IMPRESSION: 1. Superior right head and inferior/posterior left head are excluded from the field of view. 2. No definite visualized acute intracranial abnormality. 3. Stable ventricular size and configuration. Electronically signed by: Steven Hand On 05/02/2020 21:14:46 PM
--- NOTE | 2020-05-02 21:19 | REPVR ---
PROCEDURE INFORMATION: Exam: XR Shunt Series With 4 XR Procedures Exam date and time: 05/02/2020 8:57 PM Age: 64 years old Clinical indication: Other: Seizures; Additional info: Multiple seizures TECHNIQUE: Imaging protocol: XR Shunt Series was performed with skull less than 4 views, neck 1 view, chest 1 view, and abdomen 1 view. COMPARISON: CT Head without contrast 02/04/2020 6:26 PM FINDINGS: Tubes, catheters and devices: Right-sided ventriculostomy catheter terminates near the midline. Shunt catheter tubing descends along the right head and neck and along the right paramedian chest. Tube descends into the right upper quadrant and is partially coiled at the right lateral abdomen. No evidence of shunt fracture or discontinuity. Sinuses: Visualized paranasal sinuses are well aerated. Airway: Upper airway and trachea are unremarkable in the neck and chest. Lungs: Mild left basilar atelectasis. Right lung is clear. Gastrointestinal tract: Elevation of the right hemidiaphragm. Nonobstructive bowel gas pattern. Moderate colonic fecal retention. Bones/joints: There are stable calvarial postoperative changes. Soft tissues: Unremarkable. IMPRESSION: Intact shunt catheter tubing as above. Electronically signed by: Steven Hand On 05/02/2020 21:19:35 PM
[2020-05-02 21:49] LABS: ALBUMIN 3.5 GM/DL (3.2-5.2); ALT/SGPT 28 U/L (12-78); BILIRUBIN,DIRECT < 0.1 MG/DL (0.0-0.2); BILIRUBIN,TOTAL 0.1 MG/DL (0.2-1.0); BLOOD UREA NITROGEN 14 MG/DL (7-18); CARBON DIOXIDE LEVEL 33 MEQ/L (21-32); CHLORIDE LEVEL 105 MEQ/L (98-107); CREATININE FOR GFR 0.85 MG/DL (0.70-1.30); GLOMERULAR FILTRATION RATE > 60.0 (>49); GLUCOSE, FASTING 109 MG/DL (70-100); PHENOBARBITAL LEVEL 33.9 UG/ML (15.0-40.0); PHENYTOIN (DILANTIN) 7.6 UG/ML (10.0-20.0); POTASSIUM SERUM 4.6 MEQ/L (3.5-5.1); SODIUM LEVEL 139 MEQ/L (136-145); TOTAL PROTEIN 6.7 GM/DL (6.4-8.2)
[2020-05-02] MEDS ORDERED: LORazepam 2 MG/ML VIAL IV STA (22:21)
[2020-05-02 22:23] LABS: AMPHETAMINES LEVEL URINE NEGATIVE (NEGATIVE); BARBITURATES URINE POSITIVE (NEGATIVE); BENZODIAZEPINES URINE NEGATIVE (NEGATIVE); CANNABINOIDS URINE NEGATIVE (NEGATIVE); COCAINE METABOLITE URINE NEGATIVE (NEGATIVE); METHADONE URINE NEGATIVE (NEGATIVE); OPIATES URINE NEGATIVE (NEGATIVE); PHENCYCLIDINE URINE NEGATIVE (NEGATIVE)
[2020-05-02] MEDS ORDERED: PHENYTOIN INJection 1,000 MG in NS 100 ML IV ONE (22:30)
--- NOTE | 2020-05-02 23:44 | HPEPDOC ---
[facility] Medical History & Physical Date of Admission May 02, 2020 Date of Service: May 02, 2020 History and Physical CHIEF COMPLAINT: seizure HISTORY OF PRESENT ILLNESS: Patient is a 64-year-old male was brought from [facility] due to recurrent uncontrolled seizures. Patient is unable to provide any details and further HPI and majority is obtained from the ER providers as well as pulmonary care nurse. Per report, patient was having uncontrollable grand mal seizures at the [facility] home as well as in front of EMS. Dilantin level low on arrival. Keppra levels pending. In the ED, neurology was consulted, Dr. Valdez ecommended increasing dose of Keppra to 1500 mg twice a day, Dilantin 100 mg 4 times daily and to continue phenobarbital at the present dose of 64.8 mg twice a day. PAST MEDICAL HISTORY: Developmental disability Hydrocephalus s/p [employer] shunt placement History of pituitary tumor HTN CVA (1985 and 1988) DLP Seizure disorder DONNA on CPAP BPH PAST SURGICAL HISTORY: laparoscopic cholecystectomy SOCIAL HISTORY: Resides at the [facility] FAMILY HISTORY: reviewed, no pertinent history ALLERGIES: Please see below. REVIEW OF SYSTEMS: Performed 10 point review of systems patient is unable to fully cooperate. Negative unless mentioned otherwise in HPI HOME MEDICATIONS: Please see below. PHYSICAL EXAMINATION: VITAL SIGNS: please see below General: NAD, comfortable HEENT: PERRLA, EOMI, sclerae clear Neck: supple, normal ROM, no JVD Respiratory: lungs CTAB, no wheeze, no rales, no crackles CVS: RRR, normal S1, S2, no murmurs Abdo: soft, no masses, no hepatosplenomegaly, BS+, no rebound tenderness Extremities: no edema, pulses 2+ MSK: no joint deformities, normal ROM Neuro: no focal neuro deficits, moving all 4 extremities, CN2-12 intact. Strength 5/5 in all 4 extremities. No nystagmus. Psych: calm, cooperative, AAO x 0 LABORATORY DATA: See below. IMAGING: CT head wo contrast (05/02/20): 1. Superior right head and inferior/posterior left head are excluded from the field of view. 2. No definite visualized acute intracranial abnormality. 3. Stable ventricular size and configuration. Shunt series (05/02/20): Tubes, catheters and devices: Right-sided ventriculostomy catheter terminates near the midline. Shunt catheter tubing descends along the right head and neck and along the right paramedian chest. Tube descends into the right upper quadrant and is partially coiled at the right lateral abdomen. No evidence of shunt fracture or discontinuity. Sinuses: Visualized paranasal sinuses are well aerated. Airway: Upper airway and trachea are unremarkable in the neck and chest. Lungs: Mild left basilar atelectasis. Right lung is clear. Gastrointestinal tract: Elevation of the right hemidiaphragm. Nonobstructive bowel gas pattern. Moderate colonic fecal retention. Bones/joints: There are stable calvarial postoperative changes. Soft tissues: Unremarkable. IMPRESSION: Intact shunt catheter tubing as above. MICROBIOLOGY: Please see below. PLAN: #Seizure disorder - admitted for witnessed recurrent grand mal seizures - neurology contacted from ED. Dr. Queen recommended increasing dilantin to 100 mg QID, keppra 1500 mg BID, and to continue phenobarbital at present dose. Will c/w lamotrigine at same dosage. - Dr. Queen will see patient in am. #anxiety/Depression/Insomnia/Behavioural issues - c/w paroxetine, clonazepma, hydroxyzine, quetiapine, trazodone #Hydrocephalus - shunt appears well positioned on imaging 05/03/19 #Covid-19 infection - out of quarantine window per public health - saturating well on RA #HTN: - presently controlled without medication #CVA: - c/w simvastatin #BPH - c/w flomax, prazosin #DVT ppx - lovenox Vital Signs Vital Signs Date Time Temp Pulse Resp B/P (MAP) Pulse Ox O2 Delivery O2 Flow Rate FiO2 05/02/20 21:57 98.3 05/02/20 21:16 80 20 141/67 (91) 98 Room Air Laboratory Data Labs 24H Laboratory Tests 2 05/02/20 21:04: Immature Granulocyte % (Auto) 0.7, Neutrophils (%) (Auto) 54.7, Lymphocytes (%) (Auto) 27.7, Monocytes (%) (Auto) 12.9H, Eosinophils (%) (Auto) 3.3H, Basophils (%) (Auto) 0.7, Neutrophils # (Auto) 4.0, Lymphocytes # (Auto) 2.0, Monocytes # (Auto) 1.0H, Eosinophils # (Auto) 0.2, Basophils # (Auto) 0.1, Nucleated Red Blood Cells % (auto) 0.0, Anion Gap 1L, Glomerular Filtration Rate > 60.0, Brain cium Level 9.0, Total Bilirubin 0.1L, Direct Bilirubin < 0.1, Aspartate Amino Transf (AST/SGOT) 15, Alanine Aminotransferase (ALT/SGPT) 28, Alkaline Phosphatase 119H, Total Protein 6.7, Albumin 3.5, Albumin/Globulin Ratio 1.1, Thyroid Stimulating Hormone (TSH) 1.740, Phenytoin (Dilantin) Level 7.6L, Phenobarbital Level 33.9 05/02/20 21:10: Bedside Glucose (Misc Panel) 117H 05/02/20 21:30: Urine Color YELLOW, Urine Appearance CLEAR, Urine pH 7.0, Urine Specific [place] 1.019, Urine Protein NEGATIVE, Urine Glucose (UA) NEGATIVE, Urine Ketones NEGATIVE, Urine Blood NEGATIVE, Urine Nitrite NEGATIVE, Urine Bilirubin NEGATIVE, Urine Urobilinogen 0.2, Urine Leukocyte Esterase NEGATIVE, Urine WBC (Auto) 0, Urine RBC (Auto) 0, Urine Hyaline Casts (Auto) 0, Urine Bacteria (Auto) NEGATIVE, Urine Squamous Epithelial Cells 0, Urine Mucus (Auto) SMALL, Urine Sperm (Auto) , Urine Opiates Screen NEGATIVE, Urine Methadone Screen NEGATIVE, Urine Barbiturates Screen POSITIVEH, Urine Phencyclidine Screen NEGATIVE, Urine Amphetamines Screen NEGATIVE, Urine Benzodiazepines Screen NEGATIVE, Urine Cocaine Metabolite Screen NEGATIVE, Urine Cannabinoids Screen NEGATIVE CBC/BMP Laboratory Tests 05/02/20 21:04 Home Medications Scheduled Calcium Carbonate/Vitamin D3 (Calcium 500-Vit D3 200 Tablet) 1 Tab Tab, 1 TAB PO TID Ergocalciferol (Vitamin D2) (Drisdol) 1,250 Mcg Capsule, 1,250 MCG PO 1XWK FRIDAY Fluticasone Propionate (Flonase Allergy Relief) 50 Mcg/Act Spr, 2 SPRAYS NA DAILY Hydroxyzine HCl (Hydroxyzine HCl) 25 Mg Tablet, 25 MG PO QID Lactulose (Lactulose) 10 Gm/15 Ml Solution, 30 ML PO BID Lamotrigine (Lamotrigine) 200 Mg Tab, 200 MG PO DAILY Lamotrigine (Lamictal) 200 Mg Tab, 400 MG PO QHS Lubiprostone (Amitiza) 24 Mcg Cap, 24 MCG PO DAILY Paroxetine HCl (Paxil) 40 Mg Tab, 40 MG PO DAILY 60MG TOTAL Paroxetine HCl (Paroxetine HCl) 20 Mg Tablet, 20 MG PO DAILY 60MG TOTAL Phenobarbital (Phenobarbital) 64.8 Mg Tab, 64.8 MG PO BID Phenytoin (Dilantin) 30 Mg Capsule, 30 MG PO DAILY @ 1500 Phenytoin Sodium Extended (Dilantin) 100 Mg Cap, 100 MG PO BID Polyethylene Glycol 3350 (Miralax) 119 Gm Powder, 17 GM PO BID Prazosin Hcl (Prazosin HCl) 1 Mg Capsule, 1 MG PO QHS Quetiapine Fumarate (Seroquel) 50 Mg Tab, 50 MG PO BID TAKES WITH 300MG FOR TOTAL OF 350MG Quetiapine Fumarate (Quetiapine Fumarate) 300 Mg Tab, 300 MG PO BID TAKES WITH 50 MG FOR TOTAL OF 350 MG Sennosides (Senna Lax) 8.6 Mg Tablet, 17.2 MG PO QHS Simvastatin (Simvastatin) 20 Mg Tab, 20 MG PO QHS Tamsulosin HCl (Flomax) 0.4 Mg Cap, 0.4 MG PO QHS Trazodone HCl (Trazodone HCl) 100 Mg Tab, 200 MG PO QHS levETIRAcetam (levETIRAcetam) 500 Mg Tablet, 1,000 MG PO BID Scheduled PRN Bisacodyl (Bisacodyl) 10 Mg Supp.rect, 10 MG DE Q4DP PRN for CONSTIPATION ON DAY 4 WITH NO BM Clotrimazole/Betamethasone Dip (Clotrimazole-Betamethasone Crm) 15 Gm Cream..g., 1 DOSE TOP DAILY PRN for RASH Magnesium Hydroxide (Milk of Magnesia) 400 Mg/5 Ml Oral.susp, 30 ML PO Q3DP PRN for CONSTIPATION WITH 3RD DAY OF NO BM Sodium Phosphate,Webster-Dibasic (Fleet Enema) 133 Ml Enema, 1 BRIGID DE ASDIRECTED PRN for CONSTIPATION ON DAY 5 WITH NO BM Allergies Coded Allergies: asenapine (Verified Allergy, Unknown, unknown, 05/29/19) felbamate (Verified Allergy, Unknown, 04/17/20) haloperidol (Verified Allergy, Unknown, 04/17/20) lurasidone (Verified Allergy, Unknown, 04/17/20) TAPE (Verified Adverse Reaction, Mild, rash, 04/17/20) JACQUIE CHA MD May 02, 2020 23:44
[2020-05-03] MEDS ORDERED: FLEEENE12 PR (00:07)
[2020-05-03] MEDS ORDERED: HYDR-4570 PO (00:07)
[2020-05-03] MEDS ORDERED: CLOT1CRE71 TOP (00:07)
[2020-05-03] MEDS ORDERED: BISACODYL 10 MG SUPP PR PRN (01:15)
[2020-05-03] MEDS ORDERED: MOM 30ML SUSPENSION UDC PO PRN (01:15)
[2020-05-03 02:07] LABS: RSV AMPLIFICATION NEGATIVE (NEGATIVE)
[2020-05-03 04:11] VITALS: BP 142/81
--- NOTE | 2020-05-03 07:31 | ECGEPIP ---
[facility] - ED Test Date: 2020-05-02 Pat Name: PREM ALMARAZ Department: Room: [place] [address] Gender: Male Supervisor Telephone Clerks: : 1955 Requested By: TOBIAS López Order Number: [id number] Reading MD: Deric Springer Measurements Intervals [place] Rate: 82 P: 15 HI: 164 QRS: 56 QRSD: 93 T: 18 QT: 389 QTc: 455 Interpretive Statements SINUS RHYTHM Nonspecific ST-T wave abnormalities Similar to tracing done 04-17-20 Baseline artifact Electronically Signed on 05-03-2020 7:30:52 EST by Deric Springer
[2020-05-03] MEDS ORDERED: PARoxetine 20MG TABLET PO SCH (09:00)
[2020-05-03] MEDS: lamoTRIgine 100MG TAB PO SCH (09:21)
[2020-05-03] MEDS: ENOXAPARIN 40MG/0.4ML SYRINGE (J1650 PER 10MG) SC SCH (09:21)
[2020-05-03] MEDS: FLUTICASONE PROP 0.05% NASAL SPRAY 16 GM (FLONASE) SCH (09:21)
[2020-05-03] MEDS: QUEtiapine FUMARATE 100 MG TAB PO SCH ×2 (09:22→20:16)
[2020-05-03] MEDS: PHENobarbitaL 30 MG TAB PO SCH ×2 (09:22→20:16)
[2020-05-03] MEDS: levETIRAcetam 250MG TABLET (KEPPRA) PO SCH ×2 (09:22→20:16)
[2020-05-03] MEDS: QUEtiapine FUMARATE 50 MG TAB PO SCH ×2 (09:22→20:14)
[2020-05-03] MEDS: hydrOXYzine 25 MG TAB PO SCH ×4 (09:22→20:15)
[2020-05-03] MEDS: PARoxetine 20MG TABLET PO SCH (09:23)
[2020-05-03] MEDS: PHENYTOIN ER 100 MG CAP PO SCH ×4 (09:24→20:15)
[2020-05-03 17:00] VITALS: BP 128/81
--- NOTE | 2020-05-03 18:21 | IPNPDOC ---
Subjective Date Seen The patient was seen on 05/03/20. Subjective Chief Complaint/HPI SUBJECTIVE: Pt was examined in the room this am. He's very sleepy but arousable to his name. There were no other seizures reported since his admission. He did not have any focal neurological deficits although it was difficult to evaluate due to his sleepiness. ROS: unable to obtain due to sleepiness. Will attempt again later. PHYSICAL EXAMINATION: VITAL SIGNS: please see below General: NAD, sleepy laying over the edge of his bed this am, satting well on room air HEENT: PERRLA, EOMI, sclerae clear Neck: supple, normal ROM, no JVD Respiratory: lungs CTAB, no wheeze, no rales, no crackles CVS: RRR, normal S1, S2, no murmurs Abdo: soft, no masses, no hepatosplenomegaly, BS+, no rebound tenderness Extremities: no edema, pulses 2+ MSK: no joint deformities, normal ROM Neuro: no focal neuro deficits, moving all 4 extremities, CN2-12 intact. Strength 5/5 in all 4 extremities. No nystagmus. Psych: calm, cooperative, AAO x 1 however, he is very sleepy to follow commands, likely 2/2 to change in his meds LABORATORY DATA: See below. IMAGING: CT head wo contrast (05/02/20): Superior right head and inferior/posterior left head are excluded from the field of view. No definite visualized acute intracranial abnormality. Shunt series (05/02/20): Intact shunt catheter tubing as above. see full report MICROBIOLOGY: Please see below. HOME MEDICATIONS: Please see below. ASSESSMENT AND PLAN: This is a 64-year-old male was brought from [facility] due to recurrent uncontrolled seizures. Patient is unable to provide any details and further HPI and majority is obtained from the ER providers as well as career and technology education teacher. Per report, patient was having uncontrollable grand mal seizures at the [facility] home as well as in front of EMS. Dilantin level low on arrival. Keppra level is still pending. In the ED, neurology was consulted, Dr. Queen recommended increasing dose of Keppra to 1500 mg twice a day, Dilantin 100 mg 4 times daily and to continue phenobarbital at the present dose of 64.8 mg twice a day. Pt will be admitted for further mgmt. #Seizure disorder - admitted for witnessed recurrent grand mal seizures - Neurology contacted from ED. Dr. Queen recommended increasing dilantin to 100 mg QID, keppra 1500 mg BID, phenobarbital 60 BID and lamictal 200 daily - Neurology consulted- Dr. Queen - appreciate recommendations - Will order for neuro checks q8h #Hx of various psychiatric problems - c/w home meds: paroxetine, clonazepma, hydroxyzine, quetiapine, trazodone #Hydrocephalus -Shunt appears well positioned on imaging 05/03/19 #Covid-19 infection - out of quarantine window per public health - saturating well on RA, no use of accessory muscles #HTN: - presently controlled without medication #CVA: - c/w simvastatin #BPH - c/w flomax, prazosin DVT ppx: lovenox Disposition: From COVID-19 infection standpoint, pt will not need to be on the COVID unit, [facility]. Assessment /Plan Plan/VTE VTE Prophylaxis Ordered?: Yes VS, I&O, 24H, Fishbone Vital Signs/I&O Vital Signs Date Time Temp Pulse Resp B/P (MAP) Pulse Ox O2 Delivery O2 Flow Rate FiO2 05/03/20 04:11 96.5 71 19 142/81 (101) 98 Room Air 05/03/20 03:01 2.0 I&O- Last 24 Hours up to 6 AM 05/03/20 06:00 Intake Total 120 ml Balance 120 ml Laboratory Data 24H LABS Laboratory Tests 2 05/02/20 21:04: Immature Granulocyte % (Auto) 0.7, Neutrophils (%) (Auto) 54.7, Lymphocytes (%) (Auto) 27.7, Monocytes (%) (Auto) 12.9H, Eosinophils (%) (Auto) 3.3H, Basophils (%) (Auto) 0.7, Neutrophils # (Auto) 4.0, Lymphocytes # (Auto) 2.0, Monocytes # (Auto) 1.0H, Eosinophils # (Auto) 0.2, Basophils # (Auto) 0.1, Nucleated Red Blood Cells % (auto) 0.0, Anion Gap 1L, Glomerular Filtration Rate > 60.0, Calcium Level 9.0, Total Bilirubin 0.1L, Direct Bilirubin < 0.1, Aspartate Amino Transf (AST/SGOT) 15, Alanine Aminotransferase (ALT/SGPT) 28, Alkaline Phosphatase 119H, Total Protein 6.7, Albumin 3.5, Albumin/Globulin Ratio 1.1, Thyroid Stimulating Hormone (TSH) 1.740, Phenytoin (Dilantin) Level 7.6L, Phenobarbital Level 33.9 05/02/20 21:10: Bedside Glucose (Misc Panel) 117H 05/02/20 21:30: Urine Color YELLOW, Urine Appearance CLEAR, Urine pH 7.0, Urine Specific [place] 1.019, Urine Protein NEGATIVE, Urine Glucose (UA) NEGATIVE, Urine Ketones NEGATIVE, Urine Blood NEGATIVE, Urine Nitrite NEGATIVE, Urine Bilirubin NEGATIVE, Urine Urobilinogen 0.2, Urine Leukocyte Esterase NEGATIVE, Urine WBC (Auto) 0, Urine RBC (Auto) 0, Urine Hyaline Casts (Auto) 0, Urine Bacteria (Auto) NEGATIVE, Urine Squamous Epithelial Cells 0, Urine Mucus (Auto) SMALL, Urine Sperm (Auto) , Urine Opiates Screen NEGATIVE, Urine Methadone Screen NEGATIVE, Urine Barbiturates Screen POSITIVEH, Urine Phencyclidine Screen NEGATIVE, Urine Amphetamines Screen NEGATIVE, Urine Benzodiazepines Screen NEGATIVE, Urine Cocaine Metabolite Screen NEGATIVE, Urine Cannabinoids Screen NEGATIVE 05/03/20 01:05: Coronavirus (COVID-19)(PCR) POSITIVEA, Influenza Type A (RT-PCR) NEGATIVE, Influenza Type B (RT-PCR) NEGATIVE, Respiratory Syncytial Virus (PCR) NEGATIVE CBC/BMP Laboratory Tests 05/02/20 21:04 GME ATTESTATION GME ATTESTATION My faculty preceptor for this patient encounter was physically present during the encounter and was fully available. All aspects of the patient interview, examination, medical decision making process, and medical care plan development were reviewed and approved by the faculty preceptor. The faculty preceptor is aware and concurs with the plan as stated in the body of this note and will attest to such by his/her cosignature. ATTENDING NOTE I, Ti Patel MD, have independently examined this patient and performed my own physical exam, as well as reviewed the documentation and edited where necessary. I have discussed in detail with the resident / student the findings and plan of treatment as documented by the resident / student and edited their note. I agree with their findings and treatment plan and have edited their documentation. Nadine Smith DO May 03, 2020 16:57 TI PATEL MD May 05, 2020 15:00
[2020-05-03 21:00] VITALS: BP 149/84
[2020-05-03] MEDS ORDERED: PRAZOSIN 1 MG CAP PO SCH (21:00)
[2020-05-03] MEDS ORDERED: TAMSULOSIN 0.4 MG CAP PO SCH (21:00)
[2020-05-03] MEDS ORDERED: lamoTRIgine 100MG TAB PO SCH (21:00)
[2020-05-03] MEDS ORDERED: SENNA 8.6 MG TAB (SENOKOT) PO SCH (21:00)
[2020-05-03] MEDS ORDERED: SIMVASTATIN 20 MG TAB PO SCH (21:00)
[2020-05-03] MEDS ORDERED: traZODone 100 MG TAB PO SCH (21:00)
[2020-05-03 22:00] VITALS: BP 149/84
[2020-05-04 06:00] VITALS: BP 126/76
[2020-05-04] MEDS: FLUTICASONE PROP 0.05% NASAL SPRAY 16 GM (FLONASE) SCH (09:00)
[2020-05-04] MEDS: hydrOXYzine 25 MG TAB PO SCH ×3 (09:52→18:08)
[2020-05-04] MEDS: QUEtiapine FUMARATE 50 MG TAB PO SCH (09:52)
[2020-05-04] MEDS: levETIRAcetam 250MG TABLET (KEPPRA) PO SCH (09:52)
[2020-05-04] MEDS: QUEtiapine FUMARATE 100 MG TAB PO SCH (09:52)
[2020-05-04] MEDS: PHENYTOIN ER 100 MG CAP PO SCH ×3 (09:53→18:08)
[2020-05-04] MEDS: PARoxetine 20MG TABLET PO SCH (09:53)
[2020-05-04] MEDS: lamoTRIgine 100MG TAB PO SCH (09:53)
[2020-05-04] MEDS: PHENobarbitaL 30 MG TAB PO SCH (09:54)
[2020-05-04] MEDS: ENOXAPARIN 40MG/0.4ML SYRINGE (J1650 PER 10MG) SC SCH (09:54)
[2020-05-04 10:00] VITALS: BP 148/81
[2020-05-04] MEDS ORDERED: DILA100C PO (11:16)
[2020-05-04] MEDS ORDERED: KEPP10002 PO (11:16)
[2020-05-04 12:32] LABS: BASO % 0.6 % (0.0-1.0); EOS # 0.2 10^3/uL (0.0-0.5); EOS % 2.8 % (0.0-3.0); HEMATOCRIT 35.5 % (42.0-52.0); HEMOGLOBIN 11.5 g/dl (13.5-17.5); LYMPH # 1.4 10^3/uL (1.5-5.0); LYMPH % 25.1 % (24.0-44.0); MEAN CORPUSCULAR HEMOGLOBIN 29.3 pg (27.0-33.0); MEAN CORPUSCULAR HGB CONC 32.4 g/dl (32.0-36.5); MEAN CORPUSCULAR VOLUME 90.6 fl (80.0-96.0); MONO # 0.6 10^3/uL (0.0-0.8); MONO % 11.7 % (0.0-5.0); NEUTROPHILS # 3.2 10^3/uL (1.5-8.5); NEUTROPHILS % 59.4 % (36.0-66.0); PLATELET COUNT, AUTOMATED 211 10^3/uL (150-450); RED BLOOD COUNT 3.92 10^6/uL (4.30-6.10); WHITE BLOOD COUNT 5.4 10^3/uL (4.0-10.0)
[2020-05-04 13:04] LABS: BLOOD UREA NITROGEN 9 MG/DL (7-18); CALCIUM LEVEL 8.5 MG/DL (8.8-10.2); CARBON DIOXIDE LEVEL 31 MEQ/L (21-32); CHLORIDE LEVEL 103 MEQ/L (98-107); CREATININE FOR GFR 0.78 MG/DL (0.70-1.30); GLOMERULAR FILTRATION RATE > 60.0 (>49); GLUCOSE, FASTING 130 MG/DL (70-100); PHENYTOIN (DILANTIN) 17.4 UG/ML (10.0-20.0); POTASSIUM SERUM 3.7 MEQ/L (3.5-5.1); SODIUM LEVEL 137 MEQ/L (136-145)
[2020-05-04] MEDS ORDERED: LACTULOSE 20 GM/30 ML SYRUP UD PR ONE (13:45)
[2020-05-04 14:00] VITALS: BP 131/75
[2020-05-04] MEDS ORDERED: LACTULOSE 20 GM/30 ML SYRUP UD PO ONE (16:00)
--- NOTE | 2020-05-04 17:10 | DS.PDOC ---
Discharge Summary General Date of Admission May 03, 2020 at 14:40 Date of Discharge 05/04/2020 Attending Physician: TI WHITMAN MD Specialist/Consultants Involve Dr. Queen (Neurology) Discharge Summary ADMITTING DIAGNOSES: Seizures DISCHARGE DIAGNOSES: Seizures COMPLICATIONS/CHIEF COMPLAINT: Seizures Developmental disability Hydrocephalus s/p HOT DIP GALVANIZER shunt placement History of pituitary tumor HTN CVA (1985 and 1988) DLP Seizure disorder DONNA on CPAP BPH HISTORY OF PRESENT ILLNESS: HISTORY OF PRESENT ILLNESS: Patient is a 64-year-old male was brought from care home due to recurrent uncontrolled seizures. Patient is unable to provide any details and further HPI and majority is obtained from the ER providers as well as healthcare consulting manager. Per report, patient was having uncontrollable grand mal seizures at the [facility] home as well as in front of EMS. Dilantin level low on arrival. Keppra levels pending. In the ED, neurology was consulted, Dr. Queen recommended increasing dose of Keppra to 1500 mg twice a day, Dilantin 100 mg 4 times daily and to continue phenobarbital at the present dose of 64.8 mg twice a day. HOSPITAL COURSE: This is a 64-year-old male was brought from care home due to recurrent uncontrolled seizures. Patient is unable to provide any details and further HPI and majority is obtained from the ER providers as well as healthcare consulting manager. Per report, patient was having uncontrollable grand mal seizures at the [facility] home as well as in front of EMS. Dilantin level low on arrival. Keppra level is still pending. In the ED, neurology was consulted, Dr. Queen recommended increasing dose of Keppra to 1500 mg twice a day, Dilantin 100 mg 4 times daily and to continue phenobarbital at the present dose of 64.8 mg twice a day. Of note, Pt was also COVID positive; however, on presentation he's been satting over 94% on RA and has not needed any supplemental oxygen. He's been seizure free since hospitalization. Spoke with neurology (Dr. Queen) about optimization of his seizure meds. Per his recommendation, pt's keppra was increased to 1500mg PO BID and dilantin increased to 100mg TID, and phenobarbital and lamictal kept at the same home regimen. Pt's ammonia level is in the 80s, 1 dose of PO lactulose given and patient was written a script for a repeat CBC and an ammonia level in 5 days on 05/09/2020 and to follow up with neurologist (Dr. Queen) to go over results and optimization of meds. Pt is also instructed to follow with his PCP within 3-5 days post hospital discharge. He is instructed that if his conditions worsens to report back to the ER. DISCHARGE MEDICATIONS: Please see below ALLERGIES: Please see below. PHYSICAL EXAMINATION ON DISCHARGE: VITAL SIGNS: Please see below General: NAD, comfortable HEENT: PERRLA, EOMI, sclerae clear Neck: supple, normal ROM, no JVD Respiratory: lungs CTAB, no wheeze, no rales, no crackles CVS: RRR, normal S1, S2, no murmurs Abdomen: soft, no masses, no hepatosplenomegaly, BS+, no rebound tenderness Extremities: no peripheral edema bilaterally, pulses 2+ MSK: no joint deformities, normal ROM Neuro: no focal neuro deficits, moving all 4 extremities, CN2-12 intact. Strength 5/5 in all 4 extremities. No nystagmus. Psych: calm, cooperative, AAO x 3 LABORATORY DATA: Please see below. IMAGING: CT head w/o ctx: 1. Superior right head and inferior/posterior left head are excluded from the field of view. 2. No definite visualized acute intracranial abnormality. 3. Stable ventricular size and configuration. Shunt study: FINDINGS: Tubes, catheters and devices: Right-sided ventriculostomy catheter terminates near the midline. Shunt catheter tubing descends along the right head and neck and along the right paramedian chest. Tube descends into the right upper quadrant and is partially coiled at the right lateral abdomen. No evidence of shunt fracture or discontinuity. Sinuses: Visualized paranasal sinuses are well aerated. Airway: Upper airway and trachea are unremarkable in the neck and chest. Lungs: Mild left basilar atelectasis. Right lung is clear. Gastrointestinal tract: Elevation of the right hemidiaphragm. Nonobstructive bowel gas pattern. Moderate colonic fecal retention. Bones/joints: There are stable calvarial postoperative changes. Soft tissues: Unremarkable ACTIVITY: As tolerated DIET: 2g Na DISCHARGE PLAN: Patient will get a repeat CBC and a repeat ammonia level in 5 days after hospital discharge on and follow up with neurologist with results and seizure med reconciliation. Follow with PCP within 3-5 days of hospital discharge DISPOSITION: Fair DISCHARGE INSTRUCTIONS: 1. Follow with Neurology (Dr. Queen) within 7 days of hospital discharge 2. Follow with PCP within 3-5 days of hospital discharge 3. Please be compliant with your medications 4. Please take keppra 1500mg PO BID 5. Please take dilantin 100mg TID 6. Please take phenobarbital (home regimen) 7. Please take lamictal 200mg daily (home regimen) 8. Please get a CBC and ammonia level in 5 days on 05/09/2020 DISCHARGE CONDITION: Fair TIME SPENT ON DISCHARGE: Greater than45 minutes. Vital Signs/I&Os Vital Signs Date Time Temp Pulse Resp B/P (MAP) Pulse Ox O2 Delivery O2 Flow Rate FiO2 05/04/20 10:00 98.2 79 18 148/81 (103) 97 Room Air 05/03/20 03:01 2.0 I&O- Last 24 Hours up to 6 AM 05/04/20 06:00 Intake Total 370 ml Output Total 550 ml Balance -180 ml Discharge Medications Scheduled Calcium Carbonate/Vitamin D3 (Calcium 500-Vit D3 200 Tablet) 1 Tab Tab, 1 TAB PO TID, (Reported) Ergocalciferol (Vitamin D2) (Drisdol) 1,250 Mcg Capsule, 1,250 MCG PO 1XWK, (Reported) FRIDAY Fluticasone Propionate (Flonase Allergy Relief) 50 Mcg/Act Spr, 2 SPRAYS NA DAILY, (Reported) Hydroxyzine HCl (Hydroxyzine HCl) 25 Mg Tablet, 25 MG PO QID, (Reported) Lactulose (Lactulose) 10 Gm/15 Ml Solution, 30 ML PO BID, (Reported) Lamotrigine (Lamotrigine) 200 Mg Tab, 200 MG PO DAILY, (Reported) Lamotrigine (Lamictal) 200 Mg Tab, 400 MG PO QHS, (Reported) Levetiracetam (Keppra) 1,000 Mg Tablet, 1,500 MG PO BID Lubiprostone (Amitiza) 24 Mcg Cap, 24 MCG PO DAILY, (Reported) Paroxetine HCl (Paxil) 40 Mg Tab, 40 MG PO DAILY, (Reported) 60MG TOTAL Paroxetine HCl (Paroxetine HCl) 20 Mg Tablet, 20 MG PO DAILY, (Reported) 60MG TOTAL Phenobarbital (Phenobarbital) 64.8 Mg Tab, 64.8 MG PO BID, (Reported) Phenytoin Sodium Extended (Dilantin) 100 Mg Capsule, 100 MG PO TID Polyethylene Glycol 3350 (Miralax) 119 Gm Powder, 17 GM PO BID, (Reported) Prazosin Hcl (Prazosin HCl) 1 Mg Capsule, 1 MG PO QHS, (Reported) Quetiapine Fumarate (Seroquel) 50 Mg Tab, 50 MG PO BID, (Reported) TAKES WITH 300MG FOR TOTAL OF 350MG Quetiapine Fumarate (Quetiapine Fumarate) 300 Mg Tab, 300 MG PO BID, (Reported) TAKES WITH 50 MG FOR TOTAL OF 350 MG Sennosides (Senna Lax) 8.6 Mg Tablet, 17.2 MG PO QHS, (Reported) Simvastatin (Simvastatin) 20 Mg Tab, 20 MG PO QHS, (Reported) Tamsulosin HCl (Flomax) 0.4 Mg Cap, 0.4 MG PO QHS, (Reported) Trazodone HCl (Trazodone HCl) 100 Mg Tab, 200 MG PO QHS, (Reported) Scheduled PRN Bisacodyl (Bisacodyl) 10 Mg Supp.rect, 10 MG AR Q4DP PRN for CONSTIPATION, (Reported) ON DAY 4 WITH NO BM Clotrimazole/Betamethasone Dip (Clotrimazole-Betamethasone Crm) 15 Gm Cream..g., 1 DOSE TOP DAILY PRN for RASH, (Reported) Magnesium Hydroxide (Milk of Magnesia) 400 Mg/5 Ml Oral.susp, 30 ML PO Q3DP PRN for CONSTIPATION, (Reported) WITH 3RD DAY OF NO BM Sodium Phosphate,[place]-Dibasic (Fleet Enema) 133 Ml Enema, 1 BRIGID AR ASDIRECTED PRN for CONSTIPATION, (Reported) ON DAY 5 WITH NO BM Allergies Coded Allergies: asenapine (Verified Allergy, Unknown, unknown, 05/29/19) felbamate (Verified Allergy, Unknown, 04/17/20) haloperidol (Verified Allergy, Unknown, 04/17/20) lurasidone (Verified Allergy, Unknown, 04/17/20) TAPE (Verified Adverse Reaction, Mild, rash, 04/17/20) GME ATTESTATION GME ATTESTATION My faculty preceptor for this patient encounter was physically present during the encounter and was fully available. All aspects of the patient interview, examination, medical decision making process, and medical care plan development were reviewed and approved by the faculty preceptor. The faculty preceptor is aware and concurs with the plan as stated in the body of this note and will attest to such by his/her cosignature. ATTENDING NOTE I, Ti Whitman MD, have independently examined this patient and performed my own physical exam, as well as reviewed the documentation and edited where necessary. I have discussed in detail with the resident / student the findings and plan of treatment as documented by the resident / student and edited their note. I agree with their findings and treatment plan and have edited their documentation. Nadine Smith DO May 04, 2020 11:46 TI WHITMAN MD May 05, 2020 15:01
== END 2020-05-04 18:26 | disposition home or self-care (01) | DRG 101 ==
LOC: M ED 19:59 → M ED INP 23:32 → M 4MAIN 05-03 04:34 → OBSVTOIN 05-03 14:40 → M MSPAV 05-03 16:53
PROVIDERS: ADMIT Family Medicine; ATTEND Internal Medicine
DX: G40.409 Other generalized epilepsy and epileptic syndromes, not intractable, without status epilepticus (principal); G91.9 Hydrocephalus, unspecified; I10 Essential (primary) hypertension; Z86.73 Personal history of transient ischemic attack (TIA), and cerebral infarction without residual deficits; G47.33 Obstructive sleep apnea (adult) (pediatric); N40.0 Benign prostatic hyperplasia without lower urinary tract symptoms; Z79.899 Other long term (current) drug therapy; Z88.8 Allergy status to other drugs, medicaments and biological substances; F41.9 Anxiety disorder, unspecified; F32.9 Major depressive disorder, single episode, unspecified

== ENCOUNTER → 2020-05-09 | Outpatient (CLI) | payer MEDICARE, MEDICAID ==
[~2020-05-09] MED LIST changes: +CLOT1CRE71 TOP; +FLEEENE12 PR; +HYDR-4570 PO
[2020-05-09 10:45] LABS: HEMATOCRIT 38.4 % (42.0-52.0); MEAN CORPUSCULAR HEMOGLOBIN 28.8 pg (27.0-33.0); MEAN CORPUSCULAR HGB CONC 31.3 g/dl (32.0-36.5); MEAN CORPUSCULAR VOLUME 92.3 fl (80.0-96.0); PLATELET COUNT, AUTOMATED 229 10^3/uL (150-450); RED BLOOD COUNT 4.16 10^6/uL (4.30-6.10); WHITE BLOOD COUNT 4.5 10^3/uL (4.0-10.0)
== END ==
LOC: M LAB 08:45
PROVIDERS: ATTEND Internal Medicine
DX: G40.909 Epilepsy, unspecified, not intractable, without status epilepticus (principal)

== ENCOUNTER → 2020-05-09 | Outpatient (CLI) | payer MEDICARE, MEDICAID | LOC: M LAB 08:42 | PROVIDERS: ATTEND Physician Assistant Medical | DX: G40.909 Epilepsy, unspecified, not intractable, without status epilepticus (principal); Z51.81 Encounter for therapeutic drug level monitoring ==

== ENCOUNTER 2020-06-10 14:04 | Emergency (ER) | payer MEDICARE, MEDICAID ==
[~2020-06-10 14:04] MED LIST changes: -QUET1TAB10 PO; +QUET300T2 PO
--- OUTSIDE RECORDS SUMMARY | 2020-06-10 14:56 | CCD | Continuity of Care Document ---
Author Author Hemanth ENGEL P.A.-C. Organization Unknown Address [address] [place] [id number] Phone [phone] Care Team Providers Care Deflash And Wash Operator Name Role Phone Carlitos Lozano AUTM [phone] Problems Description No Information Available Social History Type Date Description Comments Sex Unknown Allergies, Adverse Reactions, Alerts Active Allergies Reaction Severity Comments Date Tranxene lethargy 07/11/2011 Haldol agitation 11/19/2013 Latuda increased behaviors 11/20/19 14 Felbatol 10/07/2014 Namenda 02/07/2020 Medications Active Medications SIG Qnty Indications Ordering Provide r Date Lactulose 10GM/15ML Solution 30 ml po bid 1892ml E72.20 Olamide Mireles M.D. 06/08/2019 Levetiracetam 500mg Tablets 3 po bid 180tabs G40.309 Olamide Mireles M.D. 03/02/2019 Lamotrigine 200mg Tablets Take One Tablet By Mouth Every Morning And Two Tablets AT Bedtime 90tabs Olamide Mireles M.D. 08/01/2018 Dilantin 100mg Capsules 1 po tid, new directions 90caps Olamide Mireles M.D. 2016 Phenobarbital 64.8mg Tablets Take One Tablet By Mouth Twice Daily, Max Daily Dose Two Tablets 60tabs Olamide Mireles M.D. 2016 Immunizations Description No Information Available Vital Signs Date Vital Result Comment 04/27/2020 5:43am BP Systolic 132 mmHg VS as reporte d by PATTI nurse BP Diastolic 72 mmHg VS as reported by JR Whyte nurse Heart Rate 80 /min Respiratory Rate 16 /min Weight 228.38 lb O2 % BldC Oximetry 96 % 06/30/2019 6:59am BP Systolic 110 mmHg BP Diastolic 70 mmHg Heart Rate 76 /min Respiratory Rate 16 /min Results Test Acquired Date Facility Test Result H/L Range Note Laboratory test finding 05/09/[address] [facility] Phenytoin (Dilantin) 18.2 UG/ML Normal 10.0-20.0 Comprehensive Metabolic Profil 01/05/[address] [facility] Glucose, Fasting 111 mg/dL High 70-100 Blood Urea Nitrogen 18 mg/dL Normal 7-18 Creatinine For GFR 0.95 mg/dL Normal 0.70-1.30 Glomerular Filtration Rate > 60.0 Normal >49 1 Sodium Level 142 mEq/L Normal 136-145 Potassium Serum 4.6 mEq/L Normal 3.5-5.1 Chloride Level 109 mEq/L High 98-107 Carbon Dioxide Level 29 mEq/L Normal 21-32 Anion Gap 4 mEq/L Low 8-16 Calcium Level 8.6 mg/dL Low 8.8-10.2 Ast/Sgot 15 U/L Normal 7-37 Alt/SGPT 24 U/L Normal 12-78 Alkaline Phosphatase 137 U/L High 45-117 Bilirubin,Total 0.2 mg/dL Normal 0.2-1.0 Total Protein 6.9 GM/DL Normal 6.4-8.2 Albumin 3.8 GM/DL Normal 3.2-5.2 Albumin/Globulin Ratio 1.2 Normal Laboratory test finding 01/05/[address] [facility] Phenytoin (Dilantin) 9.3 UG/ML Low 10.0-20.0 Phenobarbital Level 28.6 UG/ML Normal 15.0-40.0 Ammonia 37 uMOL/L High <32 Levetiracetam (Keppra) 12.4 ug/mL Normal 10.0-40.0 2 Lamotrigine (Lamictal) 6.3 ug/mL Normal 2.0-20.0 3 CBC With Differential 01/05/[address] [facility] White Blood Count 4.6 10 Normal 4.0-10.0 Red Blood Count 4.50 10 Normal 4.30-6.10 Hemoglobin 13.4 g/dL Low 13.5-17.5 Hematocrit 42.3 % Normal 42.0-52.0 Mean Corpuscular Volume 94.0 fl Normal 80.0-96.0 Mean Corpuscular Hemoglobin 29.8 pg Normal 27.0-33.0 Mean Corpuscular HGB Conc 31.7 g/dL Low 32.0-36.5 Red Cell Distribution Width 13.3 % Normal 11.5-14.5 Platelet Count, Automated 167 10 Normal 150-450 Neutrophils % 51.2 % Normal 36.0-66.0 Lymph % 33.5 % Normal 24.0-44.0 Titus % 8.7 % High 0.0-5.0 Eos % 5.8 % High 0.0-3.0 Baso % 0.6 % Normal 0.0-1.0 Immature Granulocyte % 0.2 % Normal 0-3.0 Nucleated Red Blood Cell % 0.0 % Normal 0-0 Neutrophils # 2.4 10 Normal 1.5-8.5 Lymph # 1.6 10 Normal 1.5-5.0 Titus # 0.4 10 Normal 0.0-0.8 Eos # 0.3 10 Normal 0.0-0.5 Baso # 0.0 10 Normal 0.0-0.2 1 Units are mL/min/1.73 m2 Chronic Kidney Disease Staging per NKF: Stage I & II GFR >=60 Normal to Mildly Decreased Stage III GFR 30-59 Moderately Decreased Stage IV GFR 15-29 Severely Decreased Stage V GFR <15 Very Little GFR Left ESRD GFR <15 on RIVET MACHINE OPERATOR 2 This test was developed and its performance characteristics determined by [employer]. It has not been cleared or approved by the Food and Drug Administration. 3 Testing on this sample was p erformed by homogeneous enzyme immunoassay. Detection Limit = 1.0 Performed at: [facility] [address] [id number] School Custodian: Nomi Barrett MD, Phone: [phone] Performed at: [facility] [address] [place] [id number] School Custodian: Jihan Mena [facility], Phone: [phone] Procedures Description No Information Available Medical Devices Description No Information Available Encounters Type Date Location Provider Dx Diagnosis Office Visit 05/08/2020 8:45a Main office - [place] Ariadne GarlandAZaheer G40.309 Gen idiopathic epilepsy, not intractable , w/o stat epi E72.20 Disorder of urea cycle metab olism, unspecified Office Visit 04/27/2020 11:30a Main office - [place] Omayra uriarte, P.A.-C. 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 05/08/2020 E72.20 Disorder of urea cycle metabolis m, unspecified Omayra Engel, P.A.-C. 04/27/2020 E72.20 Disorder of urea cycle metabolis m, unspecified Omayra Engel, P.A.-C. 04/27/2020 E23.6 Other disorders of pituitary gla nd Omayra Engel P.A.-C. 04/27/2020 G91.8 Other hydrocephalus Omayra uriarte P.A.-C. 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 04/27/2020 F02.81 Dementia in other diseases class ified elsewhere with behavio Omayra Engel P.A.-C. 04/27/2020 R44.1 Visual hallucinations Omayra allred P.A.-C. 04/27/2020 R53.83 Other fatigue Omayra Engel P.A.-C. 04/18/2020 E72.20 Disorder of urea cycle metabolis m, unspecified Omayra Charlene Engel, P.A.-C. 04/18/2020 E23.6 Other disorders of pituitary gla nd Omayra Charlene Engel, P.A.-C. 04/18/2020 G91.8 Other hydrocephalus Omayra uriarte, P.A.-C. 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 04/18/2020 F02.81 Dementia in other diseases class ified elsewhere with behavio Omayra Charlene Engel, P.A.-C. 04/18/2020 R44.1 Visual hallucinations Omayra allred, P.A.-C. 04/18/2020 R53.83 Other fatigue Omayra Charlene Engel, P.A.-C. 03/03/2020 G40.309 Generalized idiopathic epilepsy and epileptic syndromes, not Omayra Charlene Engel, P.A.-C. 03/03/2020 F02.81 Dementia in other diseases class ified elsewhere with behavio Omayra Charlene Engel, P.A.-C. 03/03/2020 R44.1 Visual hallucinations Omayra allred, P.A.-C. 03/03/2020 E72.20 Disorder of urea cycle metabolis m, unspecified Omayra Charlene Engel, P.A.-C. 03/03/2020 E23.6 Other disorders of pituitary gla nd Omayra Engel, P.A.-C. 03/03/2020 G91.8 Other hydrocephalus Omayra uriarte, P.A.-C. 03/03/2020 R53.83 Other fatigue Omayra Charlene Engel, P.A.-C. 01/12/2020 G40.309 Generalized idiopathic epilepsy and epileptic syndromes, not Omayra Charlene Engel, P.A.-C. 01/12/2020 E72.20 Disorder of urea cycle metabolis m, unspecified Omayra Charlene Engel, P.A.-C. 01/12/2020 F02.81 Dementia in other diseases class ified elsewhere with behavio Omayra Charlene Engel, P.A.-C. 01/12/2020 R44.1 Visual hallucinations Omayra allred P.A.-C. 01/12/2020 E23.6 Other disorders of pituitary gla nd Omayra Engel P.A.-C. 01/12/2020 G91.8 Other hydrocephalus Omayra uriarte P.A.-C. 01/12/2020 R53.83 Other fatigue Omayra Engel P.A.-C. Plan of Treatment 05/08/2020 - Omayra Engel P.A.-C.* G40.309 Generalized idiopathic epilepsy and epileptic syndromes, not* Comments:* Improved. Repeat Dilantin, Keppra and Lamictal levels. Order faxed to the residence. * E72.20 Disorder of urea cycle metabolism, unspecified* Comments:* He will have his ammonia level repeated tomorrow. It may be affected by the increase in his seizure medication doses. * Follow up:* 2 months Functional Status Description No Information Available Mental Status Description No Information Available Referrals Description No Information Available
--- OUTSIDE RECORDS SUMMARY | 2020-06-10 14:56 | CCD | Continuity of Care Document ---
Author Author Hemanth ENGEL P.A.-C. Organization Unknown Address [address] [place] [address] Phone [phone] Care Team Providers Care Salon Coordinator Name Role Phone Carlitos Lozano AUTM [phone] Problems Description No Information Available Social History [...] H/L Range Note Laboratory test finding 05/09/2020 [facility] Phenytoin (Dilantin) 18.2 UG/ML Normal 10.0-20.0 Levetiracetam (Keppra) 27.7 ug/mL Normal 10.0-40.0 1 Lamotrigine (Lamictal) 7.8 ug/mL Normal 2.0-20.0 2 Comprehensive Metabolic Profil 01/05/2020 [facility] Glucose, Fasting 111 mg/dL High 70-100 Blood Urea Nitrogen 18 mg/dL Normal 7-18 Creatinine For GFR 0.95 mg/dL Normal 0.70-1.30 Glomerular Filtration Rate > 60.0 Normal >49 3 Sodium Level 142 mEq/L Normal 136-145 Potassium [...] Ratio 1.2 Normal Laboratory test finding 01/05/2020 [facility] Phenytoin (Dilantin) 9.3 UG/ML Low 10.0-20.0 Phenobarbital Level 28.6 UG/ML Normal 15.0-40.0 Ammonia 37 uMOL/L High <32 Levetiracetam (Keppra) 12.4 ug/mL Normal 10.0-40.0 4 Lamotrigine (Lamictal) 6.3 ug/mL Normal 2.0-20.0 5 CBC With Differential 01/05/2020 [facility] White Blood Count 4.6 10 Normal 4.0-10.0 [...] 36.0-66.0 Lymph % 33.5 % Normal 24.0-44.0 [place] % 8.7 % High 0.0-5.0 Eos % 5.8 % High 0.0-3.0 Baso % 0.6 % Normal 0.0-1.0 Immature Granulocyte % 0.2 % Normal 0-3.0 Nucleated Red Blood Cell % 0.0 % Normal 0-0 Neutrophils # 2.4 10 Normal 1.5-8.5 Lymph # 1.6 10 Normal 1.5-5.0 [place] # 0.4 10 Normal 0.0-0.8 Eos # 0.3 10 Normal 0.0-0.5 Baso # 0.0 10 Normal 0.0-0.2 1 This test was developed and its performance characteristics determined by [facility]. It has not been cleared or approved by the Food and Drug Administration. 2 Testing on this sample was p erformed by homogeneous enzyme immunoassay. Detection Limit = 1.0 Performed at: [facility] [address] [id number] Computational Sciences Professor: Nomi Barrett MD, Phone: [phone] Performed at: [employer] [address] [place] [id number] Computational Sciences Professor: Jihan Mena [facility], Phone: [phone] 3 Units are mL/min/1.73 m2 Chronic Kidney Disease Staging per NKF: Stage I & II GFR >=60 Normal to Mildly Decreased Stage III GFR 30-59 Moderately Decreased Stage IV GFR 15-29 Severely Decreased Stage V GFR <15 Very Little GFR Left ESRD GFR <15 on CHIEF MECHANICAL OFFICER 4 This test was developed and its performance characteristics determined by [facility]. It has not been cleared or approved by the Food and Drug Administration. 5 Testing on this sample was p erformed by homogeneous enzyme immunoassay. Detection Limit = 1.0 Performed at: [address] [id number] Computational Sciences Professor: Nomi Barrett MD, Phone: [phone] Performed at: [employer] [address] [place] [id number] Computational Sciences Professor: Jihan Mena [facility], Phone: [phone] Procedures Description No Information Available Medical Devices Description No Information Available Encounters Type Date Location Provider Dx Diagnosis Office Visit 05/08/2020 8:45a Main office - [place] Omayra uriarte P.A.-C. 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 05/08/2020 E72.20 Disorder of urea cycle metabolis m, unspecified Omayra Engel P.A.-C. 04/27/2020 E72.20 Disorder of urea cycle metabolis m, unspecified Omayra Engel, P.A.-C. 04/27/2020 E23.6 Other disorders of pituitary gla nd Omayra KuldeepVaibhav Engel, P.A.-C. 04/27/2020 G91.8 Other hydrocephalus Omayra JVaibhav Delia uriarte, P.A.-C. 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 04/27/2020 F02.81 Dementia in other diseases class ified elsewhere with behavio Omayra Cahrlene Engel, P.A.-C. 04/27/2020 R44.1 Visual hallucinations Omayra J. Tr ickey, P.A.-C. 04/27/2020 R53.83 Other fatigue Omayra Charlene Engel, P.A.-C. 04/18/2020 E72.20 Disorder of urea cycle metabolis m, unspecified Omayra Charlene Engel, P.A.-C. 04/18/2020 E23.6 Other disorders of pituitary gla nd Omayra Charlene Engel, P.A.-C. 04/18/2020 G91.8 Other hydrocephalus Omayra KuldeepVaibhav Lin uriarte, P.A.-C. 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 04/18/2020 F02.81 Dementia in other diseases class ified elsewhere with behavio Omayra Charlene Engel, P.A.-C. 04/18/2020 R44.1 Visual hallucinations Omayra J. Jonathon ickey, P.A.-C. 04/18/2020 R53.83 Other fatigue Omayra Charlene Linkey, P.A.-C. 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 03/03/2020 F02.81 Dementia in other diseases class ified elsewhere with behavio Omayra Charlene Engel, P.A.-C. 03/03/2020 R44.1 Visual hallucinations Omayra J. Tr ickey, P.A.-C. 03/03/2020 E72.20 Disorder of urea cycle metabolis m, unspecified Omayra Charlene Engel, P.A.-C. 03/03/2020 E23.6 Other disorders of pituitary gla nd Omayra Engel P.A.-C. 03/03/2020 G91.8 Other hydrocephalus Omayra uriarte P.A.-C. 03/03/2020 R53.83 Other fatigue Omayra Engel P.A.-C. 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 01/12/2020 E72.20 Disorder of urea cycle metabolis m, unspecified Omayra Engel P.A.-C. 01/12/2020 F02.81 Dementia in other diseases class ified elsewhere with behavio Omayra Engel P.A.-C. 01/12/2020 R44.1 Visual hallucinations Omayra allred P.A.-C. 01/12/2020 E23.6 Other disorders of pituitary gla nd Omayra Engel P.A.-C. 01/12/2020 G91.8 Other hydrocephalus Omayra uriarte P.A.-C. 01/12/2020 R53.83 Other fatigue Omayra Engel P.A.-C. Plan of Treatment 05/08/2020 - [place] Jara.A.-C.* G40.309 Generalized idiopathic epilepsy and epileptic syndromes, [...]
--- OUTSIDE RECORDS SUMMARY | 2020-06-10 14:56 | CCD | Continuity of Care Document ---
Author Author Hemanth BONDS PA Organization Unknown Address [address] [place] [address] [address] [place] [address] Phone [phone] Care Team Providers Care Truck Repair Supervisor Name Role Phone Ruy Jones AUTM [phone] uRy Jones AUTM [phone] Social History Type Date Description Comments Sex Unknown Immunizations CPT Code Status Date Vaccine Lot # [id number] Given 03/03/2008 Flu Injection Results Test Acquired Date Facility Test Result H/L Range Note CBC With Differential 03/02/[address] [address] [phone] White Blood Count 5.4 10 Normal 4.0-10.0 Red Blood Count 4.56 10 Normal 4.30-6.10 Hemoglobin 13.2 g/dL Low 13.5-17.5 Hematocrit 42.6 % Normal 42.0-52.0 Mean Corpuscular Volume 93.4 fl Normal 80.0-96.0 Mean Corpuscular Hemoglobin 28.9 pg Normal 27.0-33.0 Mean Corpuscular HGB Conc 31.0 g/dL Low 32.0-36.5 Red Cell Distribution Width 13.2 % Normal 11.5-14.5 Platelet Count, Automated 163 10 Normal 150-450 Neutrophils % 49.0 % Normal 36.0-66.0 Lymph % 34.4 % Normal 24.0-44.0 [place] % 9.2 % High 0.0-5.0 Eos % 6.1 % High 0.0-3.0 Baso % 0.9 % Normal 0.0-1.0 Immature Granulocyte % 0.4 % Normal 0-3.0 Nucleated Red Blood Cell % 0.0 % Normal 0-0 Neutrophils # 2.7 10 Normal 1.5-8.5 Lymph # 1.9 10 Normal 1.5-5.0 [place] # 0.5 10 Normal 0.0-0.8 Eos # 0.3 10 Normal 0.0-0.5 Baso # 0.1 10 Normal 0.0-0.2 Comprehensive Metabolic Profil 03/02/[address] [address] [phone] Glucose, Fasting 105 mg/dL High 70-100 Blood Urea Nitrogen 14 mg/dL Normal 7-18 Creatinine For GFR 1.04 mg/dL Normal 0.70-1.30 Glomerular Filtration Rate > 60.0 Normal >49 1 Sodium Level 142 mEq/L Normal 136-145 Potassium Serum 4.4 mEq/L Normal 3.5-5.1 Chloride Level 108 mEq/L High 98-107 Carbon Dioxide Level 30 mEq/L Normal 21-32 Anion Gap 4 mEq/L Low 8-16 Calcium Level 9.0 mg/dL Normal 8.8-10.2 Ast/Sgot 17 U/L Normal 7-37 Alt/SGPT 24 U/L Normal 12-78 Alkaline Phosphatase 139 U/L High 45-117 Bilirubin,Total 0.2 mg/dL Normal 0.2-1.0 Total Protein 6.8 GM/DL Normal 6.4-8.2 Albumin 3.7 GM/DL Normal 3.2-5.2 Albumin/Globulin Ratio 1.2 Normal Lipid Panel 03/02/[address] [address] [phone] Triglycerides Level 151 mg/dL High <150 Cholesterol Level 153 mg/dL Normal <200 HDL Cholesterol 53 mg/dL Normal >40 LDL Cholesterol 70 mg/dL Normal <100 Non-HDL-C 100 mg/dL Normal Cholesterol Risk Ratio 2.886 Normal <5 Laboratory test finding 03/02/[address] [address] [phone] Prostatic Specific Ag Monitor 0.04 NG/ML Normal < 4.00 2 FT4&TSH Panel 03/02/[address] [address] [phone] Thyroid Stimulating Hormone 1.560 uIU/ML Normal 0. 358-3.740 Free T4 0.48 ng/dL Low 0.76-1.46 1 Units are mL/min/1.73 m2 Chronic Kidney Disease Staging per NKF: Stage I & II GFR >=60 Normal to Mildly Decreased Stage III GFR 30-59 Moderately Decreased Stage IV GFR 15-29 Severely Decreased Stage V GFR <15 Very Little GFR Left ESRD GFR <15 on MARKETING STRATEGY LEAD 2 The PSA assay is performed o n the Siemens [place] analyzer by LOCI sandwich chemiluminescent immunoassay and should not be compared interchangeably with other methods. It should not be used alone as a screening test or diagnosis for the presence or absence of malignant disease. Predictions of disease recurrence should not be based solely on values obtained from serial patient serum values. Encounters Type Date Location Provider Dx Diagnosis Office Visit 05/11/2020 11:00a [facility] JEANA James G40.309 Gen idiopathic epilepsy, not intractable, w/o stat epi F02.81 Dementia in oth diseases [facility] w behavioral disturb G91.8 Other hydrocephalus Office Visit 03/07/2020 10:00a [facility] JEANA James I10 Essential (primary) hyperten brian E78.5 Hyperlipidemia, unspecified J44.9 Chronic obstructive pulmonar y disease, unspecified Assessments Date Code Description Provider 05/11/2020 G40.309 Generalized idiopath ic epilepsy and epileptic syndromes, not intractable, without status epilepticus JEANA Tavarez 05/11/2020 F02.81 Dementia in other di seases classified elsewhere with behavioral disturbance JEANA Tavarez 05/11/2020 G91.8 Other hydrocephalus JEANA Tavarez 03/07/2020 I10 Essential (primary) hypertension JEANA Tavarez 03/07/2020 E78.5 Hyperlipidemia, unspecified JEANA Rothman 03/07/2020 J44.9 Chronic obstructive pulmonary di sease, unspecified JEANA Tavarez 12/06/2019 Z00.00 Encounter for genera l adult medical examination without abnormal findings JEANA Tavarez Plan of Treatment Future Appointment(s):* 08/09/2020 10:00 am - JEANA Tavarez at [facility] * 12/06/2020 10:00 am - JEANA Tavarez at [facility]
--- OUTSIDE RECORDS SUMMARY | 2020-06-10 14:56 | CCD | Continuity of Care Document ---
Author Author Hemanth ENGEL P.A.-C. Organization Unknown Address [address] [place] [address] Phone [phone] Care Team Providers Care Manufacturing Test Engineer Name Role Phone Carlitos Lozano AUTM [phone] Problems Description No Information Available Social History [...] H/L Range Note Laboratory test finding 05/09/2020 [facility] Phenytoin (Dilantin) 18.2 UG/ML Normal 10.0-20.0 Comprehensive Metabolic Profil 01/05/2020 [facility] Glucose, Fasting 111 mg/dL High 70-100 [...] Ratio 1.2 Normal Laboratory test finding 01/05/2020 [facility] Phenytoin (Dilantin) 9.3 UG/ML Low 10.0-20.0 Phenobarbital Level 28.6 UG/ML Normal 15.0-40.0 Ammonia 37 uMOL/L High <32 Levetiracetam (Keppra) 12.4 ug/mL Normal 10.0-40.0 2 Lamotrigine (Lamictal) 6.3 ug/mL Normal 2.0-20.0 3 CBC With Differential 01/05/2020 [facility] White Blood Count 4.6 10 Normal [...] 36.0-66.0 Lymph % 33.5 % Normal 24.0-44.0 Person % 8.7 % High 0.0-5.0 Eos % 5.8 % High 0.0-3.0 Baso % 0.6 % Normal 0.0-1.0 Immature Granulocyte % 0.2 % Normal 0-3.0 Nucleated Red Blood Cell % 0.0 % Normal 0-0 Neutrophils # 2.4 10 Normal 1.5-8.5 Lymph # 1.6 10 Normal 1.5-5.0 Person # 0.4 10 Normal 0.0-0.8 Eos # 0.3 10 Normal 0.0-0.5 Baso # 0.0 10 Normal 0.0-0.2 1 Units are mL/min/1.73 m2 Chronic Kidney Disease Staging per NKF: Stage I & II GFR >=60 Normal to Mildly Decreased Stage III GFR 30-59 Moderately Decreased Stage IV GFR 15-29 Severely Decreased Stage V GFR <15 Very Little GFR Left ESRD GFR <15 on MARINE ELECTRONICS TECHNICIAN 2 This test was developed and its performance characteristics determined by [employer]. It has not been cleared or approved by the Food and Drug Administration. 3 Testing on this sample was p erformed by homogeneous enzyme immunoassay. Detection Limit = 1.0 Performed at: [facility] [address] [id number] Raschel Knitting Machine Operator: Nomi Barrett MD, Phone: [phone] Performed at: [employer] [address] [place] [id number] [place] Knitting Machine Operator: Jihan Mena [facility], Phone: [phone] Procedures Description No Information Available Medical Devices Description No Information Available Encounters Type Date Location Provider Dx Diagnosis Office Visit 05/08/2020 8:45a Main office - [place] Ariadne GarlandAZaheer G40.309 Gen idiopathic epilepsy, not intractable , 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 03/03/2020 E23.6 Other disorders [...]
--- OUTSIDE RECORDS SUMMARY | 2020-06-10 14:57 | CCD | Continuity of Care Document ---
Author Author Hemanth ENGEL P.A.-C. Organization Unknown Address [address] [place] [address] Phone [phone] Care Team Providers Care Title Assistant Name Role Phone Carlitos Lozano AUTM [phone] Problems Description No Information Available Social History Type Date Description Comments Sex Unknown Allergies, Adverse Reactions, Alerts Active Allergies Reaction Severity Comments Date Tranxene lethargy 07/11/2011 Haldol agitation 11/19/2013 Latuda increased behaviors 11/20/19 14 Felbatol 10/07/2014 Namenda 02/07/2020 Medications Active Medications SIG Qnty Indications Ordering Provide r Date Dilantin 30mg Capsules 1 po at 3 pm 30caps Olamide Mireles M.D. 07/09/2019 Lactulose 10GM/15ML Solution 30 ml po bid 1892ml E72.20 Olamide Mireles M.D. 06/08/2019 Levetiracetam 500mg Tablets Take Two Tablets By Mouth Twice Daily 120tabs G40.309 Olamide Mireles M.D. 1 05/02/2018 Lamotrigine 200mg Tablets Take One Tablet By Mouth Every Morning And Two Tablets AT Bedtime 90tabs Olamide Mireles M.D. 08/01/2018 Dilantin 100mg Capsules 1 po bid, change in dose 60caps Olamide Mireles M.D. 2016 Phenobarbital 64.8mg Tablets Take One Tablet By Mouth Twice Daily, Max Daily Dose Two Tablets 60tabs Olamide Mireles M.D. 2016 Immunizations Description No Information Available Vital Signs Date Vital Result Comment 04/27/2020 5:43am BP Systolic 132 mmHg VS as reporte d by JRN nurse BP Diastolic 72 mmHg VS as reported by JR N nurse Heart Rate 80 /min Respiratory Rate 16 /min Weight 228.38 lb O2 % BldC Oximetry 96 % 06/30/2019 6:59am BP Systolic 110 mmHg BP Diastolic 70 mmHg Heart Rate 76 /min Respiratory Rate 16 /min Results Test Acquired Date Facility Test Result H/L Range Note Comprehensive Metabolic Profil 01/05/2020 [facility] Glucose, Fasting 111 mg/dL High 70-100 Blood [...] Ratio 1.2 Normal Laboratory test finding 01/05/2020 [facility] Phenytoin (Dilantin) 9.3 UG/ML Low 10.0-20.0 Phenobarbital Level 28.6 UG/ML Normal 15.0-40.0 Ammonia 37 uMOL/L High <32 Levetiracetam (Keppra) 12.4 ug/mL Normal 10.0-40.0 2 Lamotrigine (Lamictal) 6.3 ug/mL Normal 2.0-20.0 3 CBC With Differential 01/05/2020 [facility] White Blood Count 4.6 10 Normal 4.0-10.0 [...] 36.0-66.0 Lymph % 33.5 % Normal 24.0-44.0 [place] % 8.7 % High 0.0-5.0 Eos % 5.8 % High 0.0-3.0 Baso % 0.6 % Normal 0.0-1.0 Immature Granulocyte % 0.2 % Normal 0-3.0 Nucleated Red Blood Cell % 0.0 % Normal 0-0 Neutrophils # 2.4 10 Normal 1.5-8.5 Lymph # 1.6 10 Normal 1.5-5.0 [place] # 0.4 10 Normal 0.0-0.8 Eos # 0.3 10 Normal 0.0-0.5 Baso # 0.0 10 Normal 0.0-0.2 1 Units are mL/min/1.73 m2 Chronic Kidney Disease Staging per NKF: Stage I & II GFR >=60 Normal to Mildly Decreased Stage III GFR 30-59 Moderately Decreased Stage IV GFR 15-29 Severely Decreased Stage V GFR <15 Very Little GFR Left ESRD GFR <15 on INSOLE TOE SNIPPING MACHINE OPERATOR 2 This test was developed and its performance characteristics determined by [employer]. It has not been cleared or approved by the Food and Drug Administration. 3 Testing on this sample was p erformed by homogeneous enzyme immunoassay. Detection Limit = 1.0 Performed at: [facility] [employer] [id number] Smokehouse Operator: Nomi Barrett MD, Phone: [phone] Performed at: [employer] [address] [place] [id number] Smokehouse Operator: Jihan Mena [facility], Phone: [phone] Procedures Description No Information Available Medical Devices Description No Information Available Encounters Type Date Location Provider Dx Diagnosis Office Visit 04/27/2020 11:30a Main office - [place] Omayra uriarte P.A.-C. 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 04/27/2020 E23.6 Other disorders of pituitary gla nd Omayra Engel P.A.-C. 04/27/2020 G91.8 Other hydrocephalus Omayra uriarte, P.A.-C. 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 04/27/2020 R44.1 Visual hallucinations Omayra allred P.A.-C. 04/27/2020 R53.83 Other fatigue Omayra Engel, P.A.-C. 04/18/2020 E72.20 Disorder of urea cycle metabolis m, unspecified Omayra Engel, P.A.-C. 04/18/2020 E23.6 Other disorders of pituitary gla nd Omayra Engel, P.A.-C. 04/18/2020 G91.8 Other hydrocephalus Omayra uriarte, P.A.-C. 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 04/18/2020 F02.81 Dementia in other diseases class ified elsewhere with behavio Omayra Engel P.A.-C. 04/18/2020 R44.1 Visual hallucinations Omayra Charlene Jonathon ickalani, P.A.-C. 04/18/2020 R53.83 Other fatigue Omayra Charlene Maren, P.A.-C. 03/03/2020 G40.309 Generalized idiopathic epilepsy and epileptic syndromes, not Omayra Charlene Engel, P.A.-C. 03/03/2020 F02.81 Dementia in other diseases class ified elsewhere with behavio Omayra Charlene Engel, P.A.-C. 03/03/2020 R44.1 Visual hallucinations Omayra Charlene Holt ickalani, P.A.-C. 03/03/2020 E72.20 Disorder of urea cycle [...] cycle metabolis m, unspecified Omayra Engel, P.A.-C. 01/12/2020 F02.81 Dementia in other diseases class ified elsewhere with behavio Omayra Engel, P.A.-C. 01/12/2020 R44.1 Visual hallucinations Omayra Charlene Jonathon allred, P.A.-C. 01/12/2020 E23.6 Other disorders of pituitary gla nd Omayra Charlene Engel, P.A.-C. 01/12/2020 G91.8 Other hydrocephalus Omayra Charlene uriarte, P.A.-C. 01/12/2020 R53.83 Other fatigue Omayra Charlene Engel, P.A.-C. Plan of Treatment 04/27/2020 - Omayra Engel P.A.-C.* E72.20 Disorder of urea cycle metabolism, unspecified* Comments:* Get recent labs from [facility]. Continue Lactulose. 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 * G91.8 Other hydrocephalus* Comments:* Follow up at [facility]. 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 Get lab reports from [facility]. Earnestine states that Keppra and Lamictal levels were not reported. Repeat levels if necessary. She will be notified. * F02.81 Dementia in other diseases classified elsewhere with behavio* Comments: * Stable. * R44.1 Visual hallucinations* Comments:* Improved. * R53.83 Other fatigue* Comments:* Continue use of CPAP. Several of his medications may cause fatigue. * Follow up:* 3 months Functional Status Description No Information Available Mental Status Description No Information Available Referrals Description No Information Available
--- OUTSIDE RECORDS SUMMARY | 2020-06-10 14:57 | CCD | Continuity of Care Document ---
Author Author Hemanth ENGEL P.A.-C. Organization Unknown Address [address] [place] [id number] Phone [phone] Care Team Providers Care Infertility Nurse Name Role Phone Carlitos Lozano AUTM [phone] Problems Description No Information Available Social History [...] Max Daily Dose Two Tablets 60tabs Olamide Mirlees M.D. 2016 Immunizations Description No Information Available [...] H/L Range Note Comprehensive Metabolic Profil 01/05/2020 [facility] Glucose, Fasting 111 mg/dL High 70-100 Blood [...] Ratio 1.2 Normal Laboratory test finding 01/05/2020 [facility] Phenytoin (Dilantin) 9.3 UG/ML Low 10.0-20.0 Phenobarbital Level 28.6 UG/ML Normal 15.0-40.0 Ammonia 37 uMOL/L High <32 Levetiracetam (Keppra) 12.4 ug/mL Normal 10.0-40.0 2 Lamotrigine (Lamictal) 6.3 ug/mL Normal 2.0-20.0 3 CBC With Differential 01/05/2020 [facility] White Blood Count 4.6 10 Normal 4.0-10.0 [...] 36.0-66.0 Lymph % 33.5 % Normal 24.0-44.0 [place] % 8.7 % High 0.0-5.0 Eos % 5.8 % High 0.0-3.0 Baso % 0.6 % Normal 0.0-1.0 Immature Granulocyte % 0.2 % Normal 0-3.0 Nucleated Red Blood Cell % 0.0 % Normal 0-0 Neutrophils # 2.4 10 Normal 1.5-8.5 Lymph # 1.6 10 Normal 1.5-5.0 [place] # 0.4 10 Normal 0.0-0.8 Eos # 0.3 10 Normal 0.0-0.5 Baso # 0.0 10 Normal 0.0-0.2 1 Units are mL/min/1.73 m2 Chronic Kidney Disease Staging per NKF: Stage I & II GFR >=60 Normal to Mildly Decreased Stage III GFR 30-59 Moderately Decreased Stage IV GFR 15-29 Severely Decreased Stage V GFR <15 Very Little GFR Left ESRD GFR <15 on [employer] BREEDER 2 This test was developed and its performance characteristics determined by [employer]. It has not been cleared or approved by the Food and Drug Administration. 3 Testing on this sample was p erformed by homogeneous enzyme immunoassay. Detection Limit = 1.0 Performed at: [facility] [employer] [id number] [employer] Cutting Machine Operator: Nomi Barrett MD, Phone: [phone] Performed at: [employer] [address] [place] [id number] Plasma Cutting Machine Operator: Jihan Mena [facility], Phone: [phone] Procedures Description No Information Available Medical Devices Description No Information Available Encounters Type Date Location Provider Dx Diagnosis Office Visit 04/27/2020 11:30a Main office - [place] Omayra uriarte PVaibhavAZaheer E72.20 Disorder of urea cycle metabolism, 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 04/27/2020 E72.20 Disorder of [...] ified elsewhere with behavio Omayra Engel, P.A.-C. 04/18/2020 R44.1 Visual hallucinations Omayra Charlene Holt ickey, P.A.-C. 04/18/2020 R53.83 Other fatigue Omayra Charlene Trickey, P.A.-C. 03/03/2020 G40.309 Generalized idiopathic epilepsy and epileptic syndromes, not Omayra JVaibhav Deliakey, P.A.-C. 03/03/2020 F02.81 Dementia in other diseases class ified elsewhere with behavio Omayra Charlene Trickey, P.A.-C. 03/03/2020 R44.1 Visual hallucinations Omayra Charlene Holt ickey, P.A.-C. 03/03/2020 E72.20 Disorder of urea cycle metabolis m, unspecified Omayra Charlene Trickey, P.A.-C. 03/03/2020 E23.6 Other disorders of pituitary gla nd Omayra Charlene Maren, P.A.-C. 03/03/2020 G91.8 Other hydrocephalus Omayra Charlene Delia uriarte, P.A.-C. 03/03/2020 R53.83 Other fatigue Omayra Charlene Deliakey, P.A.-C. 01/12/2020 G40.309 Generalized idiopathic epilepsy and epileptic syndromes, not Omayra Charlene Deliakey, P.A.-C. 01/12/2020 E72.20 Disorder of urea cycle metabolis m, unspecified Omayra Charlene Deliakey, P.A.-C. 01/12/2020 F02.81 Dementia in other diseases class ified elsewhere with behavio Omayra Charlene Deliakey, P.A.-C. 01/12/2020 R44.1 Visual hallucinations Omayra Charlene Tr ickey, P.A.-C. 01/12/2020 E23.6 Other disorders of pituitary gla nd Omayra J. Maren, P.A.-C. 01/12/2020 G91.8 Other hydrocephalus Omayra J. Tric uriarte, P.A.-C. 01/12/2020 R53.83 Other fatigue Omayra J. Maren, P.A.-C. Plan of Treatment No Information Available Functional Status Description No Information Available Mental Status Description No Information Available Referrals Description No Information Available
--- OUTSIDE RECORDS SUMMARY | 2020-06-10 14:57 | CCD ---
Author Author [facility] Organization [facility] Address Unknown Phone Unavailable Care Team Providers Care Internal Wholesaler Name Role Phone Khris ABERNATHY MD Unavailable Unavailable Khris ABERNATHY MD Unavailable Unavailable Khris ABERNATHY MD Unavailable Unavailable Khris ABERNATHY MD Unavailable Unavailable Khris ABERNATHY MD Unavailable Unavailable Khris ABERNATHY MD Unavailable Unavailable Khris ABERNATHY MD Unavailable Unavailable Khris ABERNATHY MD Unavailable Unavailable Khris ABERNATHY MD Unavailable Unavailable Khris ABERNATHY MD Unavailable Unavailable Khris ABERNATHY MD Unavailable Unavailable Khris ABERNATHY MD Unavailable Unavailable Khris ABERNATHY MD Unavailable Unavailable Khris ABERNATHY MD Unavailable Unavailable Khris ABERNATHY MD Unavailable Unavailable Khris ABERNATHY MD Unavailable Unavailable Khris ABERNATHY MD Unavailable Unavailable Khris ABERNATHY MD Unavailable Unavailable Khris ABERNATHY MD Unavailable Unavailable Khris ABERNATHY MD Unavailable Unavailable Khris ABERNATHY MD Unavailable Unavailable Khris ABERNATHY MD Unavailable Unavailable Khris ABERNATHY MD Unavailable Unavailable Khris ABERNATHY MD Unavailable Unavailable Khris ABERNATHY MD Unavailable Unavailable Khris ABERNATHY MD Unavailable Unavailable Khris ABERNATHY MD Unavailable Unavailable Khris ABERNATHY MD Unavailable Unavailable Khris ABERNATHY MD Unavailable Unavailable Khris ABERNATHY MD Unavailable Unavailable Khris ABERNATHY MD Unavailable Unavailable Khris ABERNATHY MD Unavailable Unavailable Khris ABERNATHY MD Unavailable Unavailable Khris ABERNATHY MD Unavailable Unavailable [place], Oanh Ernesto Unavailable Unavailable Karley, Oanh Ernesto Unavailable Unavailable Karley, Oanh Ernesto Unavailable Unavailable [place], Oanh Ernesto Unavailable Unavailable [place], Oanh Ernesto Unavailable Unavailable Karley, Oanh Ernesto Unavailable Unavailable Karley, Oanh Ernesto Unavailable Unavailable [place], Oanh Ernesto Unavailable Unavailable NRI, A173 Unavailable Unavailable Trickey, J Omayra PA Unavailable Unavailable Trickey, J Omayra PA Unavailable Unavailable Trickey, J Omayra PA Unavailable Unavailable Trickey, J Omayra PA Unavailable Unavailable Trickey, J Omayra PA Unavailable Unavailable Trickey, J Omayra PA Unavailable Unavailable Trickey, J Omayra PA Unavailable Unavailable Trickey, J Omayra PA Unavailable Unavailable Trickey, J Omayra PA Unavailable Unavailable Trickey, J Omayra PA Unavailable Unavailable Trickey, J Omayra PA Unavailable Unavailable Trickey, J Omayra PA Unavailable Unavailable Trickey, J Omayra PA Unavailable Unavailable Trickey, J Omayra PA Unavailable Unavailable Trickey, J Omayra PA Unavailable Unavailable Trickey, J Omayra PA Unavailable Unavailable Trickey, J Omayra PA Unavailable Unavailable Trickey, J Omayra PA Unavailable Unavailable Trickey, J Omayra PA Unavailable Unavailable Trickey, J Omayra PA Unavailable Unavailable Trickey, J Omayra PA Unavailable Unavailable Trickey, J Omayra PA Unavailable Unavailable Trickey, J Omayra PA Unavailable Unavailable Trickey, J Omayra PA Unavailable Unavailable Trickey, J Omayra PA Unavailable Unavailable Trickey, J Omayra PA Unavailable Unavailable Trickey, J Omayra PA Unavailable Unavailable Trickey, J Omayra PA Unavailable Unavailable Trickey, J Omayra PA Unavailable Unavailable Trickey, J Omayra PA Unavailable Unavailable Trickey, J Omayra PA Unavailable Unavailable Trickey, J Omayra PA Unavailable Unavailable Trickey, J Omayra PA Unavailable Unavailable Trickey, J Omayra PA Unavailable Unavailable Trickey, J Omayra PA Unavailable Unavailable Trickey, J Omayra PA Unavailable Unavailable Trickey, J Omayra PA Unavailable Unavailable Trickey, J Omayra PA Unavailable Unavailable Trickey, J Omayra PA Unavailable Unavailable Trickey, J Omayra PA Unavailable Unavailable Trickey, J Omayra PA Unavailable Unavailable Trickey, J Omayra PA Unavailable Unavailable Trickey, J Omayra PA Unavailable Unavailable Trickey, J Omayra PA Unavailable Unavailable Trickey, J Omayra PA Unavailable Unavailable Trickey, J Omayra PA Unavailable Unavailable Trickey, J Omayra PA Unavailable Unavailable Trickey, J Omayra PA Unavailable Unavailable Trickey, J Omayra PA Unavailable Unavailable Trickey, J Omayra PA Unavailable Unavailable Trickey, J Omayra PA Unavailable Unavailable Trickey, J Omayra PA Unavailable Unavailable Nathalia Pool MD Unavailable Unavailable Nathalia Pool MD Unavailable Unavailable Nathalia Pool MD Unavailable Unavailable Nathalia Pool MD Unavailable Unavailable Nathalia Pool MD Unavailable Unavailable Nathalia Pool MD Unavailable Unavailable Nathalia Pool MD Unavailable Unavailable Nathalia Pool MD Unavailable Unavailable Nathalia Pool MD Unavailable Unavailable Nathalia Pool MD Unavailable Unavailable Nathalia Pool MD Unavailable Unavailable Nathalia Pool MD Unavailable Unavailable Nathalia Pool MD Unavailable Unavailable Nathlaia Pool MD Unavailable Unavailable Nathalia Pool MD Unavailable Unavailable Nathalia Pool MD Unavailable Unavailable Nathalia Pool MD Unavailable Unavailable Nathalia Pool MD Unavailable Unavailable Nathalia Pool MD Unavailable Unavailable Nathalia Pool MD Unavailable Unavailable Nathalia Pool MD Unavailable Unavailable Nathalia Pool MD Unavailable Unavailable Nathalia Pool MD Unavailable Unavailable Nathalia Pool MD Unavailable Unavailable Nathalia Pool MD Unavailable Unavailable Nathalia Pool MD Unavailable Unavailable Nathalia Pool MD Unavailable Unavailable Nathalia Pool MD Unavailable Unavailable Nathalia Pool MD Unavailable Unavailable Nathalia Pool MD Unavailable Unavailable Nahtalia Pool MD Unavailable Unavailable Nathalia Pool MD Unavailable Unavailable Nathalia Pool MD Unavailable Unavailable Nathalia Pool MD Unavailable Unavailable Nathalia Pool MD Unavailable Unavailable Nathalia Pool MD Unavailable Unavailable Nathalia Pool MD Unavailable Unavailable Nathalia Pool MD Unavailable Unavailable Nathalia Pool MD Unavailable Unavailable Nathalia Pool MD Unavailable Unavailable Nathalia Pool MD Unavailable Unavailable Nathalia Pool MD Unavailable Unavailable TONTARSKI, G RAMANDEEP PA Unavailable Unavailable TONTARSKI, G RAMANDEEP PA Unavailable Unavailable TONTARSKI, G RAMANDEEP PA Unavailable Unavailable TONTARSKI, G RAMANDEEP PA Unavailable Unavailable TONTARSKI, G RAMANDEEP PA Unavailable Unavailable TONTARSKI, G RAMANDEEP PA Unavailable Unavailable TONTARSKI, G RAMANDEEP PA Unavailable Unavailable TONTARSKI, G RAMANDEEP PA Unavailable Unavailable TONTARSKI, G RAMANDEEP PA Unavailable Unavailable TONTARSKI, G RAMANDEEP PA Unavailable Unavailable TONTARSKI, G RAMANDEEP PA Unavailable Unavailable TONTARSKI, G RAMANDEEP PA Unavailable Unavailable TONTARSKI, G RAMANDEEP PA Unavailable Unavailable TONTARSKI, G RAMANDEEP PA Unavailable Unavailable TONTARSKI, G RAMANDEEP PA Unavailable Unavailable TONTARSKI, G RAMANDEEP PA Unavailable Unavailable TONTARSKI, G RAMANDEEP PA Unavailable Unavailable TONTARSKI, G RAMANDEEP PA Unavailable Unavailable TONTARSKI, G RAMANDEEP PA Unavailable Unavailable TONTARSKI, G RAMANDEEP PA Unavailable Unavailable TONTARSKI, G RAMANDEEP PA Unavailable Unavailable TONTARSKI, G RAMANDEEP PA Unavailable Unavailable TONTARSKI, G RAMANDEEP PA Unavailable Unavailable TONTARSKI, G RAMANDEEP PA Unavailable Unavailable TONTARSKI, G RAMANDEEP PA Unavailable Unavailable TONTARSKI, G RAMANDEEP PA Unavailable Unavailable TONTARSKI, G RAMANDEEP PA Unavailable Unavailable TONTARSKI, G RAMANDEEP PA Unavailable Unavailable TONTARSKI, G RAMANDEEP PA Unavailable Unavailable TONTARSKI, G RAMANDEEP PA Unavailable Unavailable TONTARSKI, G RAMANDEEP PA Unavailable Unavailable TONTARSKI, G RAMANDEEP PA Unavailable Unavailable TONTARSKI, G RAMANDEEP PA Unavailable Unavailable TONTARSKI, G RAMANDEEP PA Unavailable Unavailable TONTARSKI, G RAMANDEEP PA Unavailable Unavailable TONTARSKI, G RAMANDEEP PA Unavailable Unavailable TONTARSKI, G RAMANDEEP PA Unavailable Unavailable TONTARSKI, G RAMANDEEP PA Unavailable Unavailable TONTARSKI, G RAMANDEEP PA Unavailable Unavailable TONTARSKI, G RAMANDEEP PA Unavailable Unavailable TONTARSKI, G RAMANDEEP PA Unavailable Unavailable TONTARSKI, G RAMANDEEP PA Unavailable Unavailable TONTARSKI, G RAMANDEEP PA Unavailable Unavailable TONTARSKI, G RAMANDEEP PA Unavailable Unavailable TONTARSKI, G RAMANDEEP PA Unavailable Unavailable TONTARSKI, G RAMANDEEP PA Unavailable Unavailable TONTARSKI, G RAMANDEEP PA Unavailable Unavailable TONTARSKI, G RAMANDEEP PA Unavailable Unavailable PAN, EVELYN Unavailable Unavailable PAN, EVELYN Unavailable Unavailable PAN, EVELYN Unavailable Unavailable PAN, EVELYN Unavailable Unavailable PAN, EVELYN Unavailable Unavailable PAN, EVELYN Unavailable Unavailable PAN, EVELYN Unavailable Unavailable PAN, EVELYN Unavailable Unavailable PAN, EVELYN Unavailable Unavailable PAN, EVELYN Unavailable Unavailable PAN, EVELYN Unavailable Unavailable PAN, EVELYN Unavailable Unavailable PAN, EVELYN Unavailable Unavailable PAN, EVELYN Unavailable Unavailable PAN, EVELYN Unavailable Unavailable PAN, EVELYN Unavailable Unavailable PAN, EVELYN Unavailable Unavailable PAN, EVELYN Unavailable Unavailable PAN, EVELYN Unavailable Unavailable PAN, EVELYN Unavailable Unavailable PAN, EVELYN Unavailable Unavailable PAN, EVELYN Unavailable Unavailable PAN, EVELYN Unavailable Unavailable PAN, EVELYN Unavailable Unavailable PAN, EVELYN Unavailable Unavailable PAN, EVELYN Unavailable Unavailable PAN, EVELYN Unavailable Unavailable PAN, EVELYN Unavailable Unavailable PAN, EVELYN Unavailable Unavailable PAN, EVELYN Unavailable Unavailable PAN, EVELYN Unavailable Unavailable Rocio, L Mily [facility] Unavailable Unavailable Rocio, L Mily [facility] Unavailable Unavailable Rocio, L Mily [facility] Unavailable Unavailable Rocio, L Mily [facility] Unavailable Unavailable Rocio, L Mily [facility] Unavailable Unavailable Rocio, L Mily [facility] Unavailable Unavailable Rocio, L Mily [facility] Unavailable Unavailable Rocio, L Mily [facility] Unavailable Unavailable Rocio, L Mily [facility] Unavailable Unavailable Rocio, L Mily [facility] Unavailable Unavailable Rocoi, L Mily [facility] Unavailable Unavailable Rocio, L Mily [facility] Unavailable Unavailable Rocio, L Mily [facility] Unavailable Unavailable Rocio, L Mily [facility] Unavailable Unavailable Rocio, L Mily [facility] Unavailable Unavailable Rocio, L Mily [facility] Unavailable Unavailable Rocio, L Mily [facility] Unavailable Unavailable Rocio, L Mily [facility] Unavailable Unavailable Rocio, L Mily [facility] Unavailable Unavailable Rocio, L Mily [facility] Unavailable Unavailable Rocio, L Mily [facility] Unavailable Unavailable Rocio, L Mily [facility] Unavailable Unavailable Re-disclosure Warning The records that you are about to access may contain information from federally-assisted alcohol or drug abuse programs. If such information is present, then the following federally mandated warning applies: This information has been disclosed to you from records protected by federal confidentiality rules (42 CFR part 2). The federal rules prohibit you from making any further disclosure of this information unless further disclosure is expressly permitted by the written consent of the person to whom it pertains or as otherwise permitted by 42 CFR part 2. A general authorization for the release of medical or other information is NOT sufficient for this purpose. The Federal rules restrict any use of the information to criminally investigate or prosecute any alcohol or drug abuse patient.The records that you are about to access may contain highly sensitive health information, the redisclosure of which is protected by Article 27-F of the [facility] Public Health law. If you continue you may have access to information: Regarding HIV / AIDS; Provided by facilities licensed or operated by the [facility] Office of Mental Health; or Provided by the [facility] Office for People With Developmental Disabilities. If such information is present, then the following [facility] mandated warning applies: This information has been disclosed to you from confidential records which are protected by state law. State law prohibits you from making any further disclosure of this information without the specific written consent of the person to whom it pertains, or as otherwise permitted by law. Any unauthorized further disclosure in violation of state law may result in a fine or senior living sentence or both. A general authorization for the release of medical or other information is NOT sufficient authorization for further disc losure. Allergies and Adverse Reactions Type Description Substance Reaction Status Data Source(s ) Drug allergy Haloperidol Haloperidol Unknown Active eCW1 ([facility]) Tegaderm Tegaderm Tegaderm Unknown Active eCW1 ([facility]) Lurasidone HCl Lurasidone HCl Lurasidone HCl Unknown Active eC W1 ([facility]) FEBATOL FEBATOL FEBATOL UNKNOWN Active eCW1 ([facility]) Oxybutynin Oxybutynin Oxybutynin urinary retention Active eCW1 ( [facility]) Family History Family Member Name Family Member Gender Family Member Status Date o f Status Description Data Source(s) Unknown Unknown Problem MEDENT ([facility]) Unknown Female Problem MEDENT ([facility]) Encounters Encounter Providers Location Date Indications Data Source(s ) Outpatient Attender: RAMANDEEP HILLS [facility] 05/11/2020 10:00:00 AM EST MEDENT (Tj Oshea MD) Office Visit Attender: Omayra HILLS Main office - [facility] 05/08/2020 07:45:00 AM EST MED[facility] ([facility]) Office Visit Attender: Omayra HILLS Main office - [facility] 04/27/2020 10:30:00 AM EST [facility] ([facility]) [place] [address] [facility] [address] 03/10/2020 12:00:00 AM EST eCW1 ([facility]) Outpatient [address] [facility] [place] [address] 03/08/2020 12:00:00 AM EST eCW1 ([facility]) Outpatient Attender: RAMANDEEP HILLS [facility] 03/07/2020 09:00:00 AM EST MED[facility] (Tj Oshea MD) Unknown [address] [facility] [address] 02/18/2020 12:00:00 AM EDT eCW1 ([facility]) Outpatient Attender: Nathalia Pool MD Physical Therap y 02/17/2020 01:00:00 PM EDT MED[facility] ([facility]) [place] [address] [facility] [address] 02/16/2020 12:00:00 AM EDT eCW1 ([facility]) [place] [address] [facility] [address] 02/16/2020 12:00:00 AM EDT eCW1 ([facility]) [place] [address] [facility] [address] 02/15/2020 12:00:00 AM EDT eCW1 ([facility]) Outpatient [address] [facility] [address] 02/02/2020 12:00:00 AM EDT eCW1 ([facility]) Outpatient Attender: Omayra HILLS [facility] n 01/12/2020 11:30:00 AM EDT MEDENT ([facility]) Outpatient Attender: Mily Skel[place] 11/10/2019 11:30:00 AM EDT MEDENT ([facility]) Outpatient Referrer: EVELYN PERLA 10/18/2019 11:08:00 AM E DT [facility] Outpatient Referrer: EVELYN PERLA 10/14/2019 11:31:00 AM E DT [facility] Outpatient Referrer: EVELYN PERLA 10/06/2019 08:47:00 AM E DT [facility] Outpatient Referrer: [id number] NRI 10/06/2019 08:44:00 AM EDT [facility] Outpatient Referrer: [id number] NRI 08/16/2019 04:13:00 PM EDT [facility] Outpatient Attender: Omayra HILLS [facility] n 06/30/2019 10:00:00 AM EST MEDENT ([facility]) Outpatient Attender: Ernesto Skelton/[place] 06/22/2019 09:00:00 AM EST MEDENT ([facility]) [facility] [address] [place] [address] 06/18/2019 12:00:00 AM EST eCW1 ([facility]) Outpatient Referrer: [id number] NRI 06/16/2019 08:08:00 PM EST [facility] Outpatient Referrer: [id number] NRI 06/08/2019 02:42:00 PM EST [facility] Outpatient Attender: AIDEE Skelton/[place]ha Curiel 06/08/2019 01:00:00 PM EST MED[facility] ([facility]) Outpatient Attender: Omayra HILLS [facility] 06/08/2019 09:30:00 AM EST MEDENT ([facility]) [facility] [address] [place], [place] [address] 06/02/2019 12:00:00 AM EST eCW1 ([facility]) [facility] [address] [place] [phone] 06/01/2019 12:00:00 AM EST eCW1 ([facility]) [facility] [address] [place] [phone] 04/30/2019 12:00:00 AM EST eCW1 ([facility]) Medications Medication Brand Name Start Date Product Form Dose Route Admi nistrative Instructions Pharmacy Instructions Status Indications Reaction Description Data Source(s) Gentamicin Sulfate (FDC) 0.001 MG/MG Topical Ointment Gentamicin Sulfate 0.1 % Gentamicin Sulfate 0.1 % 02/18/2020 12:00:00 AM EDT active Gentamicin Sulfate 0.1 % eCW1 ([facility]) Gentamicin Sulfate (FDC) 0.001 MG/MG Topical Ointment Gentamicin Sulfate 0.1 % Gentamicin Sulfate 0.1 % 02/18/2020 12:00:00 AM EDT active Gentamicin Sulfate 0.1 % eCW1 ([facility]) Gentamicin Sulfate (FDC) 0.001 MG/MG Topical Ointment Gentamicin Sulfate 0.1 % Gentamicin Sulfate 0.1 % 02/18/2020 12:00:00 AM EDT suspended Gentamicin Sulfate 0.1 % eCW1 ([facility]) Gentamicin Sulfate (FDC) 0.001 MG/MG Topical Ointment Gentamicin Sulfate 0.1 % Gentamicin Sulfate 0.1 % 02/18/2020 12:00:00 AM EDT suspended Gentamicin Sulfate 0.1 % eCW1 ([facility]) doxycycline hyclate 100 MG Oral Capsule Doxycycline Hy clate 100 MG Doxycycline Hyclate 100 MG 02/16/2020 12:00:00 AM EDT 1.0 {capsule} suspended Doxycycline Hyclate 100 MG eCW1 ([facility]) doxycycline hyclate 100 MG Oral Capsule Doxycycline Hy clate 100 MG Doxycycline Hyclate 100 MG 02/16/2020 12:00:00 AM EDT 1.0 {capsule} active Doxycycline Hyclate 100 MG eCW1 ([facility]) doxycycline hyclate 100 MG Oral Capsule Doxycycline Hy clate 100 MG Doxycycline Hyclate 100 MG 02/16/2020 12:00:00 AM EDT 1.0 {capsule} active Doxycycline Hyclate 100 MG eCW1 ([facility]) doxycycline hyclate 100 MG Oral Capsule Doxycycline Hy clate 100 MG Doxycycline Hyclate 100 MG 02/16/2020 12:00:00 AM EDT 1.0 {capsule} active Doxycycline Hyclate 100 MG eCW1 ([facility]) doxycycline hyclate 100 MG Oral Capsule Doxycycline Hy clate 100 MG Doxycycline Hyclate 100 MG 02/16/2020 12:00:00 AM EDT 1.0 {capsule} suspended Doxycycline Hyclate 100 MG eCW1 ([facility]) Triamcinolone Acetonide 1 MG/ML Topical Cream Triamcin olone Acetonide 0.1 % Triamcinolone Acetonide 0.1 % 02/02/2020 12:00:00 AM EDT 1.0 {appli cation} active Triamcinolone Acetonide 0 .1 % eCW1 ([facility]) Triamcinolone Acetonide 1 MG/ML Topical Cream Triamcin olone Acetonide 0.1 % Triamcinolone Acetonide 0.1 % 02/02/2020 12:00:00 AM EDT 1.0 {appli cation} active Triamcinolone Acetonide 0 .1 % eCW1 ([facility]) Triamcinolone Acetonide 1 MG/ML Topical Cream Triamcin olone Acetonide 0.1 % Triamcinolone Acetonide 0.1 % 02/02/2020 12:00:00 AM EDT 1.0 {appli cation} active Triamcinolone Acetonide 0 .1 % eCW1 ([facility]) Triamcinolone Acetonide 1 MG/ML Topical Cream Triamcin olone Acetonide 0.1 % Triamcinolone Acetonide 0.1 % 02/02/2020 12:00:00 AM EDT 1.0 {appli cation} active Triamcinolone Acetonide 0 .1 % eCW1 ([facility]) Triamcinolone Acetonide 1 MG/ML Topical Cream Triamcin olone Acetonide 0.1 % Triamcinolone Acetonide 0.1 % 02/02/2020 12:00:00 AM EDT 1.0 {appli cation} active Triamcinolone Acetonide 0 .1 % eCW1 ([facility]) Triamcinolone Acetonide 1 MG/ML Topical Cream Triamcin olone Acetonide 0.1 % Triamcinolone Acetonide 0.1 % 02/02/2020 12:00:00 AM EDT 1.0 {appli cation} active Triamcinolone Acetonide 0 .1 % eCW1 ([facility]) Triamcinolone Acetonide 1 MG/ML Topical Cream Triamcin olone Acetonide 0.1 % Triamcinolone Acetonide 0.1 % 02/02/2020 12:00:00 AM EDT 1.0 {appli cation} active Triamcinolone Acetonide 0 .1 % eCW1 ([facility]) Phenytoin sodium 30 MG Extended Release Oral Capsule [Dilant in] Dilantin 07/09/2019 12:00:00 AM EDT ORAL active MEDENT ([facility]) Lactulose 667 MG/ML Oral Solution Lactulose 06/08/2019 12:00:00 AM EST ORAL active MEDENT ([facility]) Insurance Providers Payer name Policy type / Coverage type Policy ID Covered constitution party ID Covered constitution party's relationship to baer Policy Baer Plan Information EMEDNY [id number] SP [id number] MEDICARE [id number] SP [id number] MEDICARE C [id number] S [id number] MEDICAID M [id number] S [id number] MEDICARE [id number] SP [id number] EMEDNY [id number] SP [id number] MEDICAID [id number] SP [id number] MEDICAID [id number] SP [id number] [place] [id number] Self [id number] Medicare [place] Gov't Servi Medicare Primary [id number] Self [id number] [place] [id number] Self [id number] Medicare - [place] Medicare Primary [id number] Self [id number] Medicare Part B Medicare Primary [id number] Self [id number] Medicaid Medigap Part B [id number] Self [id number] MEDICAID [id number] SP [id number] ANSI-Medicaid [id number] ANSI-Medicare Part B [id number] ANSI-Medicaid [id number] ANSI-Medicare Part B [id number] MEDICARE [id number] SP [id number] MEDICARE C [id number] S [id number] [place] [id number] Self [id number] Medicare - [place] Medicare Primary [id number] Self [id number] Medicare Part B Medicare Primary [id number] Self [id number] TODAYS OPTIONS [id number] SP [id number] [place] [id number] Self [id number] Medicare [place]l Gov't Servi Medicare Primary [id number] Self [id number] MEDICARE [id number] SP [id number] MEDICAID [id number] SP [id number] Medicare Part B Medicare Primary [id number] Self [id number] Medicare Part B Medicare Primary [id number] Self [id number] MEDICAID [id number] SP [id number] [place] [id number] Self [id number] Medicare [place] Gov't Servi Medicare Primary [id number] Self [id number] Medicare Part B Medicare Primary [id number] Self [id number] Medicare Part B Medicare Primary [id number] Self [id number] Medicare Part B Medicare Primary [id number] Self [id number] Medicare Part B Medicare Primary [id number] Self [id number] Medicare Part B Medicare Primary [id number] Self [id number] Medicare Part B Medicare Primary [id number] Self [id number] Medicare Part B Medicare Primary [id number] Self [id number] Medicare Part B Medicare Primary [id number] Self [id number] Medicare Part B Medicare Primary [id number] Self [id number] Medicare Part B Medicare Primary [id number] Self [id number] Medicare Part B Medicare Primary [id number] Self [id number] Medicare Part B Medicare Primary [id number] Self [id number] Medicare Part B Medicare Primary [id number] Self [id number] Medicare Part B Medicare Primary [id number] Self [id number] Medicare Part B Medicare Primary [id number] Self [id number] Medicare Dme Supplies Medigap Part B [id number] Self [id number] [place] [id number] Self [id number] [place] Med[place] B [id number] Self [id number] Medicare Dme Supplies Medigap Part B [id number] Self [id number] [place] Primary [id number] Self [id number] Medicare Dme Supplies Medigap Part B [id number] Self [id number] [place] Primary [id number] Self [id number] Medicare Part B Medicare Primary [id number] Self [id number] [place] Self Medicare Dme Supplies Medigap Part B Self [place] Medicare Primary Self Medicaid Medigap Part B Self Medicare Part [place] Medicare Primary [place] Primary Self Medicaid Medicaid Self Medicare Medicare Primary Self [id number] [facility] [id number] A Surgeries/Procedures Procedure Description Date Indications Data Source(s) X-Ray Clavicle Complete 10/07/2019 12:00:00 AM EDT MEDENT ([facility] ) RADEX SHOULDER COMPLETE MINIMUM 2 VIEWS 10/07/2019 12: 00:00 AM EDT MEDENT ([facility] ) Office Visit, Est Pt., Level 2 FC 06/18/2019 12:00:00 AM EST eCW1 ([facility]) Office Visit, Est Pt., Level 3 PC 06/18/2019 12:00:00 AM EST eCW1 ([facility]) US URINE CAPACITY MEASURE 06/18/2019 12:00:00 AM EST eCW1 ([facility]) I & D Abscess Simple 06/08/2019 12:00:00 AM EST MEDENT ([facility], ) Results ID Date Data Source [id number] 05/09/2020 09:06:00 AM EST MEDENT ([facility], ) Name Value Range Interpretation Code Description Data Radha rce(s) Supporting Document(s) Phenytoin [Mass/volume] in Serum or Plasma 18.2 UG/ML 10.0-20.0 MEDENT ([facility], ) Lamotrigine [Mass/volume] in Serum or Plasma 7.8 ug/mL 2.0-20.0 MEDENT ([facility], ) Testing on this sample was performed by homogeneous enzyme immunoassay. Detection Limit = 1.0 Performed at: [facility] [id number] 61 Food Mixer Repairer: Nomi Barrett MD, Phone: [phone] Performed at: [employer] [address] [place] [id number] 305 Food Mixer Repairer: Jihan Mena [facility], Phone: [phone] Levetiracetam [Mass/volume] in Serum or Plasma 27.7 ug/mL 10.0-40.0 MEDENT ([facility], ) This test was developed and its performa nce characteristics determined by [facility]. It has not been cleared or approved by the Food and Drug Administration. ID Date Data Source [id number] 05/03/2020 01:05:00 AM EST [facility] Name Value Range Interpretation Code Description Data Radha rce(s) Supporting Document(s) SARS coronavirus 2 RNA [Presence] in Res piratory specimen by DORIS with probe detection POSITIVE [facility] This lab was ordered by [facility] a nd reported by [facility]. ID Date Data Source [id number] 04/17/2020 02:13:00 PM EST [facility] Name Value Range Interpretation Code Description Data Radha rce(s) Supporting Document(s) SARS coronavirus 2 RNA [Presence] in Res piratory specimen by DORIS with probe detection [facility] This lab was ordered by [facility] a nd reported by [facility]. ID Date Data Source [id number] 03/02/2020 09:01:00 AM EST MEDENT (Tj Oshea MD) Name Value Range Interpretation Code Description Data Radha rce(s) Supporting Document(s) Laboratory test finding (navigational concept) 1.560 uIU/ML 0 .358-3.740 Normal (applies to non-numeric results) MEDENT (Tj Oshea MD) Laboratory test finding (navigational concept) 0.48 ng/dL 0 .76-1.46 Below low normal MEDENT (Tj Oshea MD) ID Date Data Source [id number] 03/02/2020 09:01:00 AM EST MEDENT (Tj Oshea MD) Name Value Range Interpretation Code Description Data Radha rce(s) Supporting Document(s) Prostate specific Ag [Mass/volume] in Serum or Plasma 0.04 ng/mL Normal (applies to non-numeric results) MEDENT (Tj Oshea MD) The PSA assay is performed on the Magton analyzer by [employer] sandwich chemiluminescent immunoassay and should not be compared interchangeably with other methods. It should not be used alone as a screening test or diagnosis for the presence or absence of malignant disease. Predictions of disease recurrence should not be based solely on values obtained from serial patient serum values. ID Date Data Source [id number] 03/02/2020 09:01:00 AM EST COLIN (Tj Oshea MD) Name Value Range Interpretation Code Description Data Radha rce(s) Supporting Document(s) Laboratory test finding (navigational concept) 153 mg/dL Normal (applies to non-numeric results) MEDENT (Tj Oshea MD) Laboratory test finding (navigational concept) 151 mg/dL Above high normal MEDENT (Tj Oshea MD) Laboratory test finding (navigational concept) 53 mg/dL Normal (applies to non-numeric results) COLIN (Tj Oshea MD) Laboratory test finding (navigational concept) 70 mg/dL Normal (applies to non-numeric results) [facility] (Tj Oshea MD) Laboratory test finding (navigational concept) 100 mg/dL Normal (applies to non-numeric results) [facility] (Tj Oshea MD) Laboratory test finding (navigational concept) 2.886 Normal (applies to non- numeric results) [facility] (Tj Oshea MD) ID Date Data Source [id number] 03/02/2020 09:01:00 AM EST COL[facility] (Tj Oshea MD) Name Value Range Interpretation Code Description Data Radha rce(s) Supporting Document(s) Laboratory test finding (navigational concept) 1.04 mg/dL 0 .70-1.30 Normal (applies to non-numeric results) MEDMAHENDRA (Tj Oshea MD) Laboratory test finding (navigational concept) 105 mg/dL 7 0-100 Above high normal GEORGEENT (Tj Oshea MD) Laboratory test finding (navigational concept) 14 mg/dL 7 -18 Normal (applies to non-numeric results) COLIN (Tj Oshea MD) Laboratory test finding (navigational concept) 142 meq/L 1 36-145 Normal (applies to non-numeric results) COLIN (Tj Oshea MD) Laboratory test finding (navigational concept) Laboratory test r esult Normal (applies to non-numeric results) MEDMAHENDRA (Tj Oshea MD) <content>Units are mL/min/1.73 m2</content>
<content></content>
<content>Chronic Kidney Disease Staging per NKF:</content>
<content></content>
<content>Stage I & II GFR >=60 Normal to Mildly Decreased</content>
<content>Stage III GFR 30- 59 Moderately Decreased</content>
<content>Stage IV GFR 15-29 Severely Decreased</content>
<content>Stage V GFR <15 Very Little GFR Left</content>
<content>ESRD GFR <15 on RACE STEWARD</content>
<content></content> Laboratory test finding (navigational concept) 108 meq/L 9 8-107 Above high normal MEDENT (Tj Oshea MD) Laboratory test finding (navigational concept) 4.4 meq/L 3 .5-5.1 Normal (applies to non-numeric results) MEDENT (Tj Oshea MD) Laboratory test finding (navigational concept) 30 meq/L 2 1-32 Normal (applies to non-numeric results) MEDENT (Tj Oshea MD) Laboratory test finding (navigational concept) 4 meq/L 8-16 Below low normal MEDENT (Tj Oshea MD) Laboratory test finding (navigational concept) 9.0 mg/dL 8 .8-10.2 Normal (applies to non-numeric results) MEDENT (Tj Oshea MD) Laboratory test finding (navigational concept) 17 U/L 7 -37 Normal (applies to non-numeric results) MEDENT (Tj Oshea MD) Laboratory test finding (navigational concept) 24 U/L 1 2-78 Normal (applies to non-numeric results) GEORGEENT (Tj Oshea MD) Laboratory test finding (navigational concept) 0.2 mg/dL 0 .2-1.0 Normal (applies to non-numeric results) MEDENT (Tj Oshea MD) Laboratory test finding (navigational concept) 139 U/L 45-117 Above high normal MEDENT (Tj Oshea MD) Laboratory test finding (navigational concept) 6.8 GM/DL 6 .4-8.2 Normal (applies to non-numeric results) MEDENT (Tj Oshea MD) Laboratory test finding (navigational concept) 3.7 GM/DL 3 .2-5.2 Normal (applies to non-numeric results) MEDENT (Tj Oshea MD) Laboratory test finding (navigational concept) 1.2 Normal (applies to non- numeric results) MEDENT (Tj Oshea MD) ID Date Data Source [id number] 03/02/2020 09:01:00 AM EST MEDENT (Tj Oshea MD) Name Value Range Interpretation Code Description Data Radha rce(s) Supporting Document(s) Laboratory test finding (navigational concept) 5.4 10 4 .0-10.0 Normal (applies to non-numeric results) MEDENT (Tj Oshea MD) Laboratory test finding (navigational concept) 42.6 % 4 2.0-52.0 Normal (applies to non-numeric results) MEDENT (Tj Oshea MD) Laboratory test finding (navigational concept) 4.56 10 4 .30-6.10 Normal (applies to non-numeric results) MEDENT (Tj Oshea MD) Laboratory test finding (navigational concept) 13.2 g/dL 1 3.5-17.5 Below low normal MEDENT (Tj Oshea MD) Laboratory test finding (navigational concept) 93.4 fl 8 0.0-96.0 Normal (applies to non-numeric results) MEDENT (Tj Oshea MD) Laboratory test finding (navigational concept) 28.9 pg 2 7.0-33.0 Normal (applies to non-numeric results) MEDENT (Tj Oshea MD) Laboratory test finding (navigational concept) 13.2 % 1 1.5-14.5 Normal (applies to non-numeric results) MEDENT (Tj Oshea MD) Laboratory test finding (navigational concept) 31.0 g/dL 3 2.0-36.5 Below low normal MEDENT (Tj Oshea MD) Laboratory test finding (navigational concept) 163 10 1 50-450 Normal (applies to non-numeric results) MEDENT (Tj Oshea MD) Laboratory test finding (navigational concept) 34.4 % 2 4.0-44.0 Normal (applies to non-numeric results) MEDENT (Tj Oshea MD) Laboratory test finding (navigational concept) 49.0 % 3 6.0-66.0 Normal (applies to non-numeric results) MEDENT (Tj Oshea MD) Laboratory test finding (navigational concept) 9.2 % 0.0-5.0 Above high normal MEDENT (Tj Oshea MD) Laboratory test finding (navigational concept) 6.1 % 0.0-3.0 Above high normal MEDENT (Tj Oshea MD) Laboratory test finding (navigational concept) 0.9 % 0 .0-1.0 Normal (applies to non-numeric results) MEDENT (Tj Oshea MD) Laboratory test finding (navigational concept) 0.4 % 0 -3.0 Normal (applies to non-numeric results) MEDENT (Tj Oshea MD) Laboratory test finding (navigational concept) 2.7 10 1 .5-8.5 Normal (applies to non-numeric results) MEDENT (Tj Oshea MD) Laboratory test finding (navigational concept) 0.0 % 0 -0 Normal (applies to non- numeric results) MEDENT (Tj Oshea MD) Laboratory test finding (navigational concept) 1.9 10 1 .5-5.0 Normal (applies to non-numeric results) MEDENT (Tj Oshea MD) Laboratory test finding (navigational concept) 0.5 10 0 .0-0.8 Normal (applies to non-numeric results) [facility] (Tj Oshea MD) Laboratory test finding (navigational concept) 0.3 10 0 .0-0.5 Normal (applies to non-numeric results) MED[facility] (Tj Oshea MD) Laboratory test finding (navigational concept) 0.1 10 0 .0-0.2 Normal (applies to non-numeric results) MEDENT (Tj Oshea MD) ID Date Data Source [id number] CULTURE 02/18/2020 11:22:27 AM EDT eCW1 ([facility]) Name Value Range Interpretation Code Description Data Radha rce(s) Supporting Document(s) FULL REPORT IN LAB NOTES (eCW and Medent). WOUND CULTURE eCW1 ([facility]) ID Date Data Source [id number] 01/05/2020 12:37:00 PM EDT MEDENT ([facility], ) Name Value Range Interpretation Code Description Data Radha rce(s) Supporting Document(s) Phenobarbital [Mass/volume] in Serum or Plasma 28.6 UG/ML 15.0-40.0 MEDENT ([facility], ) Phenytoin [Mass/volume] in Serum or Plasma 9.3 UG/ML 10.0-20.0 MEDENT ([facility]) Levetiracetam [Mass/volume] in Serum or Plasma 12.4 ug/mL 10.0-40.0 MEDENT ([facility]) This test was developed and its performa nce characteristics determined by [facility]. It has not been cleared or approved by the Food and Drug Administration. Ammonia [Mass/volume] in Blood 37 uMOL/L MEDENT ([facility], ) Lamotrigine [Mass/volume] in Serum or Plasma 6.3 ug/mL 2.0-20.0 MEDENT ([facility]) Testing on this sample was performed by homogeneous enzyme immunoassay. Detection Limit = 1.0 Performed at: [facility] [address] [id number] 61 Food Mixer Repairer: Nomi Barrett MD, Phone: [phone] Performed at: [employer] [address] [id number] 415 Food Mixer Repairer: Jihan Mena [facility], Phone: [phone] ID Date Data Source [id number] 01/05/2020 12:37:00 PM EDT MEDENT ([facility], ) Name Value Range Interpretation Code Description Data Radha rce(s) Supporting Document(s) Creatinine For GFR 0.95 mg/dL 0.70-1.30 MEDENT ([facility], ) Blood Urea Nitrogen 18 mg/dL 7-18 MEDENT ([facility], ) Glucose, Fasting 111 mg/dL 70-100 MEDENT ([facility]) Glomerular Filtration Rate Laboratory test result MEDENT ([facility]) <content>Units are mL/min/1.73 m2</content>
<content></content>
<content>Chronic Kidney Disease Staging per NKF:</content>
<content></content>
<content>Stage I & II GFR >=60 Normal to Mildly Decreased</content>
<content>Stage III GFR 30- 59 Moderately Decreased</content>
<content>Stage IV GFR 15-29 Severely Decreased</content>
<content>Stage V GFR <15 Very Little GFR Left</content>
<content>ESRD GFR <15 on RACE STEWARD</content>
<content></content> Sodium Level 142 meq/L 136-145 MEDENT ([facility], ) Chloride Level 109 meq/L 98-107 MEDENT ([facility]) Potassium Serum 4.6 meq/L 3.5-5.1 MEDENT ([facility]) Carbon Dioxide Level 29 meq/L 21-32 MEDENT ([facility]) Ast/Sgot 15 U/L 7-37 MEDENT ([facility]) Calcium Level 8.6 mg/dL 8.8-10.2 MEDENT ([facility]) Anion Gap 4 meq/L 8-16 MEDENT ([facility]) Alkaline Phosphatase 137 U/L 45-117 MEDENT ([facility]) Bilirubin,Total 0.2 mg/dL 0.2-1.0 MEDENT ([facility]) Alt/SGPT 24 U/L 12-78 MEDENT ([facility]) Albumin/Globulin Ratio 1.2 MEDENT ([facility]) Total Protein 6.9 GM/DL 6.4-8.2 MEDENT ([facility]) Albumin 3.8 GM/DL 3.2-5.2 MEDENT ([facility]) ID Date Data Source [id number] 01/05/2020 12:26:00 PM EDT MEDENT ([facility]) Name Value Range Interpretation Code Description Data Radha rce(s) Supporting Document(s) White Blood Count 4.6 10 4.0-10.0 MEDENT ([facility]) Red Blood Count 4.50 10 4.30-6.10 MEDENT ([facility]) Hemoglobin 13.4 g/dL 13.5-17.5 MEDENT ([facility]) Mean Corpuscular Hemoglobin 29.8 pg 27.0-33.0 MEDENT ([facility]) Mean Corpuscular Volume 94.0 fl 80.0-96.0 M EDENT ([facility]) Hematocrit 42.3 % 42.0-52.0 MEDENT ([facility]) Platelet Count, Automated 167 10 150-450 MED[facility] ([facility]) Mean Corpuscular HGB Conc 31.7 g/dL 32.0-36.5 MED[facility] ([facility]) Red Cell Distribution Width 13.3 % 11.5-14.5 MEDENT ([facility]) [place] % 8.7 % 0.0-5.0 MEDENT ([facility]) Lymph % 33.5 % 24.0-44.0 MEDENT ([facility]) Neutrophils % 51.2 % 36.0-66.0 MEDENT ([facility]) Eos % 5.8 % 0.0-3.0 MEDENT ([facility]) Baso % 0.6 % 0.0-1.0 MEDENT ([facility]) Nucleated Red Blood Cell % 0.0 % 0-0 MED ENT ([facility]) Neutrophils # 2.4 10 1.5-8.5 MEDENT ([facility]) Immature Granulocyte % 0.2 % 0-3.0 MEDENT ([facility]) Eos # 0.3 10 0.0-0.5 MEDENT ([facility]) [place] # 0.4 10 0.0-0.8 MEDENT ([facility]) Lymph # 1.6 10 1.5-5.0 MEDENT ([facility]) Baso # 0.0 10 0.0-0.2 MEDENT ([facility]) ID Date Data Source [id number] 10/14/2019 10:25:00 AM EDT MEDENT ([facility]) Name Value Range Interpretation Code Description Data Radha rce(s) Supporting Document(s) Ammonia [Mass/volume] in Blood 41 uMOL/L MEDENT ([facility]) Phenytoin [Mass/volume] in Serum or Plasma 10.3 UG/ML 10.0-20.0 MED[facility] ([facility]) ID Date Data Source [id number] 09/24/2019 09:01:00 AM EDT MEDENT ([facility]) Name Value Range Interpretation Code Description Data Radha rce(s) Supporting Document(s) Phenytoin [Mass/volume] in Serum or Plasma 9.2 UG/ML 10.0-20.0 MED[facility] ([facility]) Phenobarbital [Mass/volume] in Serum or Plasma 29.3 UG/ML 15.0-40.0 MED[facility] ([facility]) ID Date Data Source [id number] 09/24/2019 09:00:00 AM EDT MEDENT ([facility]) Name Value Range Interpretation Code Description Data Radha rce(s) Supporting Document(s) Lamotrigine [Mass/volume] in Serum or Plasma 7.9 ug/mL 2.0-20.0 MEDENT ([facility]) This test was developed and its performa nce characteristics determined by [facility]. It has not been cleared or approved by the Food and Drug Administration. Detection Limit = 1.0 Performed at: [address] [id number] 61 Food Mixer Repairer: Nomi Barrett MD, Phone: [phone] Levetiracetam [Mass/volume] in Serum or Plasma 14.9 ug/mL 10.0-40.0 MEDENT ([facility], ) This test was developed and its performa nce characteristics determined by [facility]. It has not been cleared or approved by the Food and Drug Administration. Ammonia [Mass/volume] in Blood 39 uMOL/L MED[facility] ([facility], ) ID Date Data Source [id number] 08/12/2019 10:56:00 AM EDT MEDENT ([facility]) Name Value Range Interpretation Code Description Data Radha rce(s) Supporting Document(s) Ammonia [Mass/volume] in Blood 31 uMOL/L MEDENT ([facility] ) ID Date Data Source [id number] 07/20/2019 11:43:00 AM EDT MEDENT ([facility] ) Name Value Range Interpretation Code Description Data Radha rce(s) Supporting Document(s) Ammonia [Mass/volume] in Blood 49 uMOL/L [facility] ([facility]) Phenytoin [Mass/volume] in Serum or Plasma 13.3 UG/ML 10.0-20.0 MED[facility] ([facility] ) ID Date Data Source [id number] 07/07/2019 10:18:00 AM EDT MEDENT ([facility] ) Name Value Range Interpretation Code Description Data Radha rce(s) Supporting Document(s) Ammonia [Mass/volume] in Blood 64 uMOL/L MED[facility] ([facility] ) ID Date Data Source [id number] 06/11/2019 01:36:00 PM EST MEDENT ([facility] ) Name Value Range Interpretation Code Description Data Radha rce(s) Supporting Document(s) Ammonia [Mass/volume] in Blood 52 uMOL/L MEDENT ([facility], ) Procedure Social History Code Duration Value Status Description Data Source(s ) Smoking 03/08/2020 12:00:00 AM EST Never Smoker completed Never S moker eCW1 ([facility]) Smoking 03/08/2020 12:00:00 AM EST Never Smoker completed Never S moker eCW1 ([facility]) Smoking 02/16/2020 12:00:00 AM EDT Never Smoker completed Never S moker eCW1 ([facility]) Smoking 02/16/2020 12:00:00 AM EDT Never Smoker completed Never S moker eCW1 ([facility]) Smoking 02/16/2020 12:00:00 AM EDT Never Smoker completed Never S moker eCW1 ([facility]) Smoking 02/02/2020 12:00:00 AM EDT Never Smoker completed Never S moker eCW1 ([facility]) Smoking 02/02/2020 12:00:00 AM EDT Never Smoker completed Never S moker eCW1 ([facility]) 11/10/2019 12:00:00 AM EDT Denies Smoking completed Afshinie berenice Smoking MEDENT ([facility], ) Vital Signs ID Date Data Source [id number] Name Value Range Interpretation Code Description Data Source(s) Oxygen saturation in Arterial blood by Pulse oximetry 96 % 96 % MEDENT ([facility], ) Body weight 228.38 [lb_av] 228.38 [lb_av] MEDEN T ([facility], ) Respiratory rate 16 /min 16 /min MEDENT ( [facility]) Heart rate 80 /min 80 /min MEDENT ([facility]) Diastolic blood pressure 72 mm[Hg] 72 mm[Hg] MEDENT ([facility]) VS as reported by JRN nurse Systolic blood pressure 132 mm[Hg] 132 mm[Hg] M EDENT ([facility]) VS as reported by JRN nurse Diastolic blood pressure 74 mm[Hg] 74 mm[Hg] eCW1 ([facility]) Systolic blood pressure 100 mm[Hg] 100 mm[Hg] e CW1 ([facility]) Body mass index (BMI) [Ratio] 30.2 kg/m2 30.2 k g/m2 W1 ([facility]) Body height 73 [in_i] 73 [in_i] eCW1 ([facility]) Body weight [lb_av] eCW1 ([facility]) Diastolic blood pressure 76 mm[Hg] 76 mm[Hg] eCW1 ([facility]) Systolic blood pressure 112 mm[Hg] 112 mm[Hg] e CW1 ([facility]) Body mass index (BMI) [Ratio] 30.2 kg/m2 30.2 k g/m2 eCW1 ([facility]) Body height 73 [in_i] 73 [in_i] eCW1 ([facility]) Body weight [lb_av] eCW1 ([facility]) Diastolic blood pressure 74 mm[Hg] 74 mm[Hg] eCW1 ([facility]) Systolic blood pressure 118 mm[Hg] 118 mm[Hg] e CW1 ([facility]) Body mass index (BMI) [Ratio] 30.2 kg/m2 30.2 k g/m2 eCW1 ([facility]) Body height 73 [in_i] 73 [in_i] eCW1 ([facility]) Body weight [lb_av] eCW1 ([facility]) Body weight 104.328 kg 104.328 kg [facility] ([facility]) Body mass index (BMI) [Ratio] 32.1 kg/m2 32.1 k g/m2 [facility] ([facility]) Body weight 230.00 [lb_av] 230.00 [lb_av] MEDEN T ([facility]) aide states Body height 71 [in_i] 71 [in_i] [facility] ([facility]) 5'11" Body temperature 98.3 [degF] 98.3 [degF] [facility] ([facility]) Oxygen saturation in Arterial blood by Pulse oximetry 92 % 92 % [facility] ([facility]) Heart rate 85 /min 85 /min [facility] ([facility]) Diastolic blood pressure 70 mm[Hg] 70 mm[Hg] [facility] ([facility]) Systolic blood pressure 110 mm[Hg] 110 mm[Hg] [facility] ([facility]) Respiratory rate 16 /min 16 /min [facility] ( [facility]) Heart rate 76 /min 76 /min [facility] ([facility]) Diastolic blood pressure 70 mm[Hg] 70 mm[Hg] [facility] ([facility]) Systolic blood pressure 110 mm[Hg] 110 mm[Hg] [facility] ([facility]) Body weight 99.792 kg 99.792 kg [facility] ([facility]) Body mass index (BMI) [Ratio] 30.7 kg/m2 30.7 k g/m2 [facility] ([facility]) Body weight 220.00 [lb_av] 220.00 [lb_av] MEDEN T ([facility]) Body height 71 [in_i] 71 [in_i] MEDENT ([facility] [facility], ) 5'11" Diastolic blood pressure 70 mm[Hg] 70 mm[Hg] MEDENT ([facility], ) Systolic blood pressure 110 mm[Hg] 110 mm[Hg] M EDENT ([facility], ) Diastolic blood pressure 72 mm[Hg] 72 mm[Hg] eCW1 ([facility]) Systolic blood pressure mm[Hg] e CW1 ([facility]) Body temperature 97.2 [degF] 97.2 [degF] eCW1 ( [facility]) Respiratory rate 18 /min 18 /min eCW1 (On license of [facility]) Heart rate 86 /min 86 /min eCW1 ([facility]) Body mass index (BMI) [Ratio] 29.02 kg/m2 29.02 kg/m2 eCW1 ([facility]) Body height 73 [in_us] 73 [in_us] eCW1 ([facility]) Body weight Measured 220 [lb_av] 220 [lb_av] eC W1 ([facility]) Respiratory rate 16 /min 16 /min MEDENT ( [facility], ) Heart rate 76 /min 76 /min MEDENT ([facility], ) Diastolic blood pressure 80 mm[Hg] 80 mm[Hg] MEDENT ([facility], ) Systolic blood pressure 112 mm[Hg] 112 mm[Hg] [facility] Patient Treatment Plan of Care Planned Activity Planned Date Details Description Data Source (s) Gentamicin Sulfate (FDC) 0.001 MG/MG Topical Ointment 02/18/2020 12:00:00 AM EDT eCW1 ([facility]) Gentamicin Sulfate (FDC) 0.001 MG/MG Topical Ointment 02/18/2020 12:00:00 AM EDT eCW1 ([facility]) doxycycline hyclate 100 MG Oral Capsule 02/16/2020 12:00:00 AM EDT eCW1 ([facility]) doxycycline hyclate 100 MG Oral Capsule 02/16/2020 12:00:00 AM EDT eCW1 ([facility]) doxycycline hyclate 100 MG Oral Capsule 02/16/2020 12:00:00 AM EDT eCW1 ([facility]) Triamcinolone Acetonide 1 MG/ML Topical Cream 02/02/2020 12:00:00 A M EDT eCW1 ([facility]) Triamcinolone Acetonide 1 MG/ML Topical Cream 02/02/2020 12:00:00 A M EDT eCW1 ([facility]) Triamcinolone Acetonide 1 MG/ML Topical Cream 02/02/2020 12:00:00 A M EDT eCW1 ([facility]) Triamcinolone Acetonide 1 MG/ML Topical Cream 02/02/2020 12:00:00 A M EDT eCW1 ([facility])
[2020-06-10 15:37] LABS: BASO % 0.3 % (0.0-1.0); EOS # 0.2 10^3/uL (0.0-0.5); EOS % 1.7 % (0.0-3.0); HEMATOCRIT 39.6 % (42.0-52.0); HEMOGLOBIN 12.7 g/dl (13.5-17.5); LYMPH # 1.3 10^3/uL (1.5-5.0); LYMPH % 12.8 % (24.0-44.0); MEAN CORPUSCULAR HEMOGLOBIN 29.4 pg (27.0-33.0); MEAN CORPUSCULAR HGB CONC 32.1 g/dl (32.0-36.5); MEAN CORPUSCULAR VOLUME 91.7 fl (80.0-96.0); MONO # 1.2 10^3/uL (0.0-0.8); MONO % 11.5 % (2.0-8.0); NEUTROPHILS # 7.4 10^3/uL (1.5-8.5); NEUTROPHILS % 73.3 % (36.0-66.0); PLATELET COUNT, AUTOMATED 190 10^3/uL (150-450); RED BLOOD COUNT 4.32 10^6/uL (4.30-6.10); WHITE BLOOD COUNT 10.1 10^3/uL (4.0-10.0)
[2020-06-10 16:03] LABS: BLOOD UREA NITROGEN 14 MG/DL (7-18); CALCIUM LEVEL 8.9 MG/DL (8.8-10.2); CARBON DIOXIDE LEVEL 30 MEQ/L (21-32); CHLORIDE LEVEL 100 MEQ/L (98-107); CREATININE FOR GFR 0.87 MG/DL (0.70-1.30); GLOMERULAR FILTRATION RATE > 60.0 (>49); GLUCOSE, FASTING 154 MG/DL (70-100); PHENOBARBITAL LEVEL 28.8 UG/ML (15.0-40.0); PHENYTOIN (DILANTIN) 15.2 UG/ML (10.0-20.0); POTASSIUM SERUM 4.6 MEQ/L (3.5-5.1); SODIUM LEVEL 136 MEQ/L (136-145)
[2020-06-10 17:00] VITALS: BP 128/70
[2020-06-10] MEDS ORDERED: LIDOCAINE 1% SDV 5ML VIAL DILUENT ONE (17:00)
[2020-06-10] MEDS ORDERED: cefTRIAXone SOD 1GM VIAL (J0696 PER 250MG) IM ONE (17:00)
== END 2020-06-10 18:13 | disposition home or self-care (01) ==
LOC: EDBD 14:04 → M ED 14:04
DX: S01.00XA Unspecified open wound of scalp, initial encounter (principal); X58.XXXA Exposure to other specified factors, initial encounter; Y92.9 Unspecified place or not applicable; Y93.9 Activity, unspecified; Y99.9 Unspecified external cause status; R53.83 Other fatigue; R56.9 Unspecified convulsions; G47.33 Obstructive sleep apnea (adult) (pediatric); I10 Essential (primary) hypertension; Z99.3 Dependence on wheelchair; F79 Unspecified intellectual disabilities; Z88.8 Allergy status to other drugs, medicaments and biological substances; Z91.048 Other nonmedicinal substance allergy status; Z79.899 Other long term (current) drug therapy
CPT/HCPCS: 36415; 80048; 80184; 80185; 85025; 87040; 87070; 87077; 87186; 87205; 96372; 99284; J0696

== ENCOUNTER 2020-06-11 09:12 | Emergency (ER) | payer MEDICARE, MEDICAID ==
[~2020-06-11] VITALS: Ht 175.3 cm; Wt 102.3 kg
[2020-06-11 09:13] VITALS: BP 115/58
--- OUTSIDE RECORDS SUMMARY | 2020-06-11 09:25 | CCD ---
Author Author [facility] Organization [facility] Address Unknown Phone Unavailable Care Team Providers Care Asphalt Paving Supervisor Name Role Phone Khris ABERNATHY MD Unavailable [...] Unavailable Unavailable Khris ABERNATHY MD Unavailable Unavailable [place], Oanh Ernesto Unavailable Unavailable Karley, Oanh Ernesto Unavailable Unavailable Karley, Oanh Ernesto Unavailable Unavailable [place], Oanh Ernesto Unavailable Unavailable [place], Oanh Ernesto Unavailable Unavailable Karley, Oanh Ernesto Unavailable Unavailable Karley, Oanh Ernesto Unavailable Unavailable [place], Oanh Ernesto Unavailable Unavailable NRI, A173 Unavailable [...] Unavailable Unavailable Nathalia Pool MD Unavailable Unavailable Nathaila Pool MD Unavailable Unavailable Nathalia Pool MD [...] PAN, EVELYN Unavailable Unavailable Rocio, L Mily IDEA MAN Unavailable Unavailable Rocio, L Mily IDEA MAN Unavailable Unavailable Rocio, L Mily IDEA MAN Unavailable Unavailable Rocio, L Mily IDEA MAN Unavailable Unavailable Rocio, L Mily IDEA MAN Unavailable Unavailable Rocio, L Mily IDEA MAN Unavailable Unavailable Rocio, L Mily IDEA MAN Unavailable Unavailable Rocio, L Mily IDEA MAN Unavailable Unavailable Rocio, L Mily IDEA MAN Unavailable Unavailable Rocio, L Mily IDEA MAN Unavailable Unavailable Rocio, L Mily IDEA MAN Unavailable Unavailable Rocio, L Mily IDEA MAN Unavailable Unavailable Rocio, L Mily IDEA MAN Unavailable Unavailable Rocio, L Mily IDEA MAN Unavailable Unavailable Rocio, L Mily IDEA MAN Unavailable Unavailable Rocio, L Mily IDEA MAN Unavailable Unavailable Rocio, L Mily IDEA MAN Unavailable Unavailable Rocio, L Mily IDEA MAN Unavailable Unavailable Rocio, L Mily IDEA MAN Unavailable Unavailable Rocio, L Mily IDEA MAN Unavailable Unavailable Rocio, L Mily IDEA MAN Unavailable Unavailable Rocio, L Mily IDEA MAN Unavailable Unavailable Re-disclosure Warning The records that [...] is protected by Article 27-F of the [facility] Public Health law. If you continue you may have access to information: Regarding HIV / AIDS; Provided by facilities licensed or operated by the [facility] Office of Mental Health; or Provided by the [facility] Office for People With Developmental Disabilities. If such information is present, then the following [facility] mandated warning applies: This information has been [...] law may result in a fine or intermediate sentence or both. A general authorization for the release of medical or other information is NOT sufficient authorization for further disc losure. Allergies and Adverse Reactions Type Description Substance Reaction Status Data Source(s ) Drug allergy Haloperidol Haloperidol Unknown Active eCW1 ([facility]) Tegaderm Tegaderm Tegaderm Unknown Active eCW1 ([facility]) Lurasidone HCl Lurasidone HCl Lurasidone HCl Unknown Active eC W1 ([facility]) FEBATOL FEBATOL FEBATOL UNKNOWN Active eCW1 ([facility]) Oxybutynin Oxybutynin Oxybutynin urinary retention Active eCW1 ( [facility]) Family History Family Member Name Family Member Gender Family Member Status Date o f Status Description Data Source(s) Unknown Unknown Problem [facility] ([facility]) Unknown Female Problem MEDENT ([facility]) Encounters Encounter Providers Location Date Indications Data Source(s ) Outpatient Attender: RAMANDEEP HILLS [facility] 05/11/2020 10:00:00 AM EST MEDENT (Tj Oshea MD) Office Visit Attender: Omayra HILLS Main office - [facility] 05/08/2020 07:45:00 AM EST MED[facility] ([facility]) Office Visit Attender: Omayra HILLS Main office - [facility] n 04/27/2020 10:30:00 AM EST [facility] ([facility]) [place] [address] [facility] [address] 03/10/2020 12:00:00 AM EST eCW1 ([facility]) Outpatient [address] [facility] [place] [address] 03/08/2020 12:00:00 AM EST eCW1 ([facility]) Outpatient Attender: RAMANDEEP HILLS [facility] 03/07/2020 09:00:00 AM EST MEDENT (Tj Oshea MD) [place] [address] [facility] [address] 02/18/2020 12:00:00 AM EDT eCW1 ([facility]) Outpatient Attender: Nathalia Pool MD Physical Therap y 02/17/2020 01:00:00 PM EDT MED[facility] ([facility]) [place] [address] [facility] [address] 02/16/2020 12:00:00 AM EDT [facility]CW1 ([facility]) [place] [address] [facility] [address] 02/16/2020 12:00:00 AM EDT eCW1 ([facility]) [place] [address] [facility] [address] 02/15/2020 12:00:00 AM EDT eCW1 ([facility]) [place] [address] [facility] [address] 02/02/2020 12:00:00 AM EDT eCW1 ([facility]) Outpatient Attender: Omayra HILLS [facility] n 01/12/2020 11:30:00 AM EDT MEDENT ([facility]) Outpatient Attender: Mily Skelton/[place]/Reindl 11/10/2019 11:30:00 AM EDT MEDENT ([facility]) Outpatient Referrer: [...] [facility] Outpatient Attender: Omayra HILLS [facility] n 06/30/2019 10:00:00 AM EST MEDENT ([facility]) Outpatient Attender: Ernesto Skelton/[place]/Reindl 06/22/2019 09:00:00 AM EST MED[facility] ([facility]) [facility] [address] [place] [address] 06/18/2019 12:00:00 AM EST eCW1 ([facility]) Outpatient Referrer: [id number] NRI 06/16/2019 08:08:00 PM EST [facility] Outpatient Referrer: [id number] NRI 06/08/2019 02:42:00 PM EST [facility] Outpatient Attender: AIDEE Skelton/Tosha Curiel 06/08/2019 01:00:00 PM EST MEDENT ([facility] Outpatient Attender: Omayra HILLS [facility] 06/08/2019 09:30:00 AM EST MEDENT ([facility]) [facility] [address] [place], [place] [address] 06/02/2019 12:00:00 AM EST eCW1 ([facility]) [facility] [address] [place] [phone] 06/01/2019 12:00:00 AM EST eCW1 ([facility]) [facility] [address] [place] [phone] 04/30/2019 12:00:00 AM EST eCW1 ([facility]) Medications Medication Brand Name Start Date Product Form Dose Route Admi nistrative Instructions Pharmacy Instructions Status Indications Reaction Description Data Source(s) Gentamicin Sulfate (SHELTER) 0.001 MG/MG Topical Ointment Gentamicin Sulfate 0.1 % Gentamicin Sulfate 0.1 % 02/18/2020 12:00:00 AM EDT active Gentamicin Sulfate 0.1 % eCW1 ([facility]) Gentamicin Sulfate (SHELTER) 0.001 MG/MG Topical Ointment Gentamicin Sulfate 0.1 % Gentamicin Sulfate 0.1 % 02/18/2020 12:00:00 AM EDT active Gentamicin Sulfate 0.1 % eCW1 ([facility]) Gentamicin Sulfate (SHELTER) 0.001 MG/MG Topical Ointment Gentamicin Sulfate 0.1 % Gentamicin Sulfate 0.1 % 02/18/2020 12:00:00 AM EDT suspended Gentamicin Sulfate 0.1 % eCW1 ([facility]) Gentamicin Sulfate (SHELTER) 0.001 MG/MG Topical Ointment Gentamicin Sulfate 0.1 % Gentamicin Sulfate 0.1 % 02/18/2020 12:00:00 AM EDT suspended Gentamicin Sulfate 0.1 % eCW1 ([facility]) doxycycline hyclate 100 MG Oral Capsule Doxycycline Hy clate 100 MG Doxycycline Hyclate 100 MG 02/16/2020 12:00:00 AM EDT 1.0 {capsule} suspended Doxycycline Hyclate 100 MG eCW1 ([facility]) doxycycline hyclate 100 MG Oral Capsule Doxycycline Hy clate 100 MG Doxycycline Hyclate 100 MG 02/16/2020 12:00:00 AM EDT 1.0 {capsule} active Doxycycline Hyclate 100 MG eCW1 ([facility]) doxycycline hyclate 100 MG Oral Capsule Doxycycline Hy clate 100 MG Doxycycline Hyclate 100 MG 02/16/2020 12:00:00 AM EDT 1.0 {capsule} active Doxycycline Hyclate 100 MG eCW1 ([facility]) doxycycline hyclate 100 MG Oral Capsule Doxycycline Hy clate 100 MG Doxycycline Hyclate 100 MG 02/16/2020 12:00:00 AM EDT 1.0 {capsule} active Doxycycline Hyclate 100 MG eCW1 ([facility]) doxycycline hyclate 100 MG Oral Capsule Doxycycline Hy clate 100 MG Doxycycline Hyclate 100 MG 02/16/2020 12:00:00 AM EDT 1.0 {capsule} suspended Doxycycline Hyclate 100 MG eCW1 ([facility]) Triamcinolone Acetonide 1 MG/ML Topical Cream Triamcin olone Acetonide 0.1 % Triamcinolone Acetonide 0.1 % 02/02/2020 12:00:00 AM EDT 1.0 {appli cation} active Triamcinolone Acetonide 0 .1 % eCW1 ([facility]) Triamcinolone Acetonide 1 MG/ML Topical Cream Triamcin olone Acetonide 0.1 % Triamcinolone Acetonide 0.1 % 02/02/2020 12:00:00 AM EDT 1.0 {appli cation} active Triamcinolone Acetonide 0 .1 % eCW1 ([facility]) Triamcinolone Acetonide 1 MG/ML Topical Cream Triamcin olone Acetonide 0.1 % Triamcinolone Acetonide 0.1 % 02/02/2020 12:00:00 AM EDT 1.0 {appli cation} active Triamcinolone Acetonide 0 .1 % eCW1 ([facility]) Triamcinolone Acetonide 1 MG/ML Topical Cream Triamcin olone Acetonide 0.1 % Triamcinolone Acetonide 0.1 % 02/02/2020 12:00:00 AM EDT 1.0 {appli cation} active Triamcinolone Acetonide 0 .1 % eCW1 ([facility]) Triamcinolone Acetonide 1 MG/ML Topical Cream Triamcin olone Acetonide 0.1 % Triamcinolone Acetonide 0.1 % 02/02/2020 12:00:00 AM EDT 1.0 {appli cation} active Triamcinolone Acetonide 0 .1 % eCW1 ([facility]) Triamcinolone Acetonide 1 MG/ML Topical Cream Triamcin olone Acetonide 0.1 % Triamcinolone Acetonide 0.1 % 02/02/2020 12:00:00 AM EDT 1.0 {appli cation} active Triamcinolone Acetonide 0 .1 % eCW1 ([facility]) Triamcinolone Acetonide 1 MG/ML Topical Cream Triamcin olone Acetonide 0.1 % Triamcinolone Acetonide 0.1 % 02/02/2020 12:00:00 AM EDT 1.0 {appli cation} active Triamcinolone Acetonide 0 .1 % eCW1 ([facility]) Phenytoin sodium 30 MG Extended Release Oral Capsule [Dilant in] Dilantin 07/09/2019 12:00:00 AM EDT ORAL active MEDENT ([facility]) Lactulose 667 MG/ML Oral Solution Lactulose 06/08/2019 12:00:00 AM EST ORAL active MEDENT ([facility]) Insurance Providers Payer name Policy type / Coverage type Policy ID Covered libertarian ID Covered libertarian's relationship to baer Policy Baer Plan Information EMEDNY [id number] SP [id number] MEDICARE [id number] SP [id number] MEDICARE C [id number] S [id number] MEDICAID M [id number] MEDICARE [id number] SP [id number] EMEDNY [id number] SP [id number] MEDICAID [id number] SP [id number] MEDICAID [id number] SP [id number] [place] [id number] Self [id number] Medicare [place] Gov't Servi Medicare Primary [id number] Self [id number] [place] [id number] Self [id number] Medicare - NGS Medicare Primary [id number] Self [id number] Medicare Part B Medicare Primary [id number] Self [id number] Medicaid Medigap Part B [id number] Self [id number] MEDICAID [id number] SP [id number] ANSI-Medicaid [id number] ANSI-Medicare Part B [id number] ANSI-Medicaid [id number] ANSI-Medicare Part B [id number] MEDICARE [id number] SP [id number] MEDICARE C [id number] S [id number] [place] [id number] Self [id number] Medicare - NGS Medicare Primary [id number] Self [id number] Medicare Part B Medicare Primary [id number] Self [id number] TODAYS OPTIONS [id number] SP [id number] [place] [id number] Self [id number] Medicare [place]l Gov't Servi Medicare Primary [id number] Self [id number] MEDICARE [id number] SP [id number] A MEDICAID [id number] SP [id number] Medicare Part B Medicare Primary [id number] Self [id number] Medicare Part B Medicare Primary [id number] Self [id number] MEDICAID [id number] SP [id number] [place] [id number] Self [id number] Medicare [place] Gov't Servi Medicare Primary [id number] Self [id number] Medicare Part B Medicare Primary [id number] Self [id number] Medicare Part B Medicare Primary [id number] Self [id number] Medicare Part B Medicare Primary [id number] Self [id number] Medicare Part B Medicare Primary [id number] Self [id number] Medicare Part B Medicare Primary [id number] Self [id number] Medicare Part B Medicare Primary [id number] Self [id number] Medicare Part B Medicare Primary [id number] Self [id number] Medicare Part B Medicare Primary [id number] Self [id number] Medicare Part B Medicare Primary [id number] Self [id number] Medicare Part B Medicare Primary [id number] Self [id number] Medicare Part B Medicare Primary [id number] Self [id number] Medicare Part B Medicare Primary [id number] Self [id number] Medicare Part B Medicare Primary [id number] Self [id number] Medicare Part B Medicare Primary [id number] Self [id number] Medicare Part B Medicare Primary [id number] Self [id number] Medicare Dme Supplies Medigap Part B [id number] Self [id number] [place] Primary [id number] Self [id number] [place] [id number] Self [id number] Medicare Dme Supplies Medigap Part B [id number] Self [id number] [place] Primary [id number] Self [id number] Medicare Dme Supplies Medigap Part B [id number] Self [id number] [place] Primary [id number] Self [id number] Medicare Part B Medicare Primary [id number] Self [id number] [place] Part B Self Medicare Dme Supplies Medigap Part B Self [place] Primary Self Medicaid Medigap Part B Self Medicare Part B [place] Primary Self [place]ig[place] Part B Self Medicare [place] Gov't Servi Medicare Primary Self Medicaid Medicaid Self Medicare Medicare Primary Self [id number] [facility] [id number] A Surgeries/Procedures Procedure Description Date Indications Data Source(s) X-Ray Clavicle Complete 10/07/2019 12:00:00 AM EDT MEDENT ([facility] ) RADEX SHOULDER COMPLETE MINIMUM 2 VIEWS 10/07/2019 12: 00:00 AM EDT MEDENT ([facility] ) Office Visit, Est Pt., Level 2 FC 06/18/2019 12:00:00 AM EST eCW1 ([facility]) Office Visit, Est Pt., Level 3 PC 06/18/2019 12:00:00 AM EST eCW1 ([facility]) US URINE CAPACITY MEASURE 06/18/2019 12:00:00 AM EST eCW1 ([facility]) I & D Abscess Simple 06/08/2019 12:00:00 AM EST MEDENT ([facility], ) Results ID Date Data Source [id number] 05/09/2020 09:06:00 AM EST MEDENT ([facility] ) Name Value Range Interpretation Code Description Data Radha rce(s) Supporting Document(s) Phenytoin [Mass/volume] in Serum or Plasma 18.2 UG/ML 10.0-20.0 MEDENT ([facility] ) Lamotrigine [Mass/volume] in Serum or Plasma 7.8 ug/mL 2.0-20.0 MEDENT ([facility] ) Testing on this sample was performed by homogeneous enzyme immunoassay. Detection Limit = 1.0 Performed at: [facility] [id number] Wellness Nurse: Nomi Barrett MD, Phone: [phone] Performed at: [facility] [address] [place] [id number] Wellness Nurse: Jihan Mena [facility], Phone: [phone] Levetiracetam [Mass/volume] in Serum or Plasma 27.7 ug/mL 10.0-40.0 MEDENT ([facility] ) This test was developed and its performa nce characteristics determined by [facility]. It has not been cleared or approved by the Food and Drug Administration. ID Date Data Source [id number] 05/03/2020 01:05:00 AM EST [facility] Name Value Range Interpretation Code Description Data Radha rce(s) Supporting Document(s) SARS coronavirus 2 RNA [Presence] in Res piratory specimen by DORIS with probe detection POSITIVE [facility] This lab was ordered by [facility] a nd reported by [facility]. ID Date Data Source [id number] 04/17/2020 02:13:00 PM EST [facility] Name Value Range Interpretation Code Description Data Radha rce(s) Supporting Document(s) SARS coronavirus 2 RNA [Presence] in Res piratory specimen by DORIS with probe detection [facility] This lab was ordered by [facility] a nd reported by [facility]. ID Date Data Source [id number] 03/02/2020 09:01:00 AM EST MEDENT (Tj Oshea MD) Name Value Range Interpretation Code Description Data Radha rce(s) Supporting Document(s) Laboratory test finding (navigational concept) 1.560 uIU/ML 0 .358-3.740 Normal (applies to non-numeric results) MEDENT (Tj Oshea MD) Laboratory test finding (navigational concept) 0.48 ng/dL 0 .76-1.46 Below low normal MEDENT (Tj Oshea MD) ID Date Data Source [id number] 03/02/2020 09:01:00 AM EST MEDENT (Tj Oshea MD) Name Value Range Interpretation Code Description Data Radha rce(s) Supporting Document(s) Prostate specific Ag [Mass/volume] in Serum or Plasma 0.04 ng/mL Normal (applies to non-numeric results) MEDENT (Tj Oshea MD) The PSA assay is performed on the enGene analyzer by [employer] sandwich chemiluminescent immunoassay and should not be compared interchangeably with other methods. It should not be used alone as a screening test or diagnosis for the presence or absence of malignant disease. Predictions of disease recurrence should not be based solely on values obtained from serial patient serum values. ID Date Data Source [id number] 03/02/2020 09:01:00 AM EST [facility] (Tj Oshea [...] (Tj Oshea MD) ID Date Data Source [id number] 03/02/2020 09:01:00 AM EST [facility] (Tj Oshea [...] Little GFR Left</content>
<content>ESRD GFR <15 on MELTER HELPER</content>
<content></content> Laboratory test finding (navigational concept) 108 [...] (Tj Oshea MD) ID Date Data Source [id number] 03/02/2020 09:01:00 AM EST MEDENT (Tj Oshea [...] WOUND CULTURE 02/18/2020 11:22:27 AM EDT eCW1 ([facility]) Name Value Range Interpretation Code Description Data Radha rce(s) Supporting Document(s) FULL REPORT IN LAB NOTES (eCW and [facility]). WOUND CULTURE eCW1 ([facility]) ID Date Data Source [id number] 01/05/2020 12:37:00 PM EDT MEDENT ([facility], ) Name Value Range Interpretation Code Description Data Radha rce(s) Supporting Document(s) Phenobarbital [Mass/volume] in Serum or Plasma 28.6 UG/ML 15.0-40.0 MEDENT ([facility], ) Phenytoin [Mass/volume] in Serum or Plasma 9.3 UG/ML 10.0-20.0 MEDENT ([facility]) Levetiracetam [Mass/volume] in Serum or Plasma 12.4 ug/mL 10.0-40.0 MEDENT ([facility]) This test was developed and its performa nce characteristics determined by [facility]. It has not been cleared or approved by the Food and Drug Administration. Ammonia [Mass/volume] in Blood 37 uMOL/L MEDENT ([facility], ) Lamotrigine [Mass/volume] in Serum or Plasma 6.3 ug/mL 2.0-20.0 MEDENT ([facility]) Testing on this sample was performed by homogeneous enzyme immunoassay. Detection Limit = 1.0 Performed at: [facility] [id number] Wellness Nurse: Nomi Barrett MD, Phone: [phone] Performed at: [facility] [address] [id number] Wellness Nurse: Jihan Mena [facility], Phone: [phone] ID Date Data Source [id number] 01/05/2020 12:37:00 PM EDT MEDENT ([facility] ) Name Value Range Interpretation Code Description Data Radha rce(s) Supporting Document(s) Creatinine For GFR 0.95 mg/dL 0.70-1.30 MEDENT ([facility], ) Blood Urea Nitrogen 18 mg/dL 7-18 MEDENT ([facility] ) Glucose, Fasting 111 mg/dL 70-100 MEDENT ([facility]) Glomerular Filtration Rate Laboratory test result MEDENT ([facility]) <content>Units are mL/min/1.73 m2</content>
<content></content>
<content>Chronic Kidney Disease Staging per NKF:</content>
<content></content>
<content>Stage I & II GFR >=60 Normal to Mildly Decreased</content>
<content>Stage III GFR 30- 59 Moderately Decreased</content>
<content>Stage IV GFR 15-29 Severely Decreased</content>
<content>Stage V GFR <15 Very Little GFR Left</content>
<content>ESRD GFR <15 on MELTER HELPER</content>
<content></content> Sodium Level 142 meq/L 136-145 MEDENT ([facility], ) Chloride Level 109 meq/L 98-107 MEDENT ([facility]) Potassium Serum 4.6 meq/L 3.5-5.1 MEDENT ([facility]) Carbon Dioxide Level 29 meq/L 21-32 MEDENT ([facility]) Ast/Sgot 15 U/L 7-37 MEDENT ([facility]) Calcium Level 8.6 mg/dL 8.8-10.2 MEDENT ([facility]) Anion Gap 4 meq/L 8-16 MEDENT ([facility]) Alkaline Phosphatase 137 U/L 45-117 MEDENT ([facility]) Bilirubin,Total 0.2 mg/dL 0.2-1.0 MEDENT ([facility]) Alt/SGPT 24 U/L 12-78 MEDENT ([facility]) Albumin/Globulin Ratio 1.2 MEDENT ([facility]) Total Protein 6.9 GM/DL 6.4-8.2 MEDENT ([facility]) Albumin 3.8 GM/DL 3.2-5.2 MEDENT ([facility]) ID Date Data Source [id number] 01/05/2020 12:26:00 PM EDT MEDENT ([facility]) Name Value Range Interpretation Code Description Data Radha rce(s) Supporting Document(s) White Blood Count 4.6 10 4.0-10.0 MEDENT ([facility]) Red Blood Count 4.50 10 4.30-6.10 MEDENT ([facility]) Hemoglobin 13.4 g/dL 13.5-17.5 MEDENT ([facility]) Mean Corpuscular Hemoglobin 29.8 pg 27.0-33.0 MEDENT ([facility]) Mean Corpuscular Volume 94.0 fl 80.0-96.0 M EDENT ([facility]) Hematocrit 42.3 % 42.0-52.0 MEDENT ([facility]) Platelet Count, Automated 167 10 150-450 MEDENT ([facility]) Mean Corpuscular HGB Conc 31.7 g/dL 32.0-36.5 MEDENT ([facility]) Red Cell Distribution Width 13.3 % 11.5-14.5 MEDENT ([facility]) Ada % 8.7 % 0.0-5.0 MEDENT ([facility]) Lymph % 33.5 % 24.0-44.0 MEDENT ([facility]) Neutrophils % 51.2 % 36.0-66.0 MEDENT ([facility]) Eos % 5.8 % 0.0-3.0 MEDENT ([facility]) Baso % 0.6 % 0.0-1.0 MEDENT ([facility]) Nucleated Red Blood Cell % 0.0 % 0-0 MED ENT ([facility]) Neutrophils # 2.4 10 1.5-8.5 MEDENT ([facility]) Immature Granulocyte % 0.2 % 0-3.0 MEDENT ([facility]) Eos # 0.3 10 0.0-0.5 MEDENT ([facility]) Ada # 0.4 10 0.0-0.8 MEDENT ([facility]) Lymph # 1.6 10 1.5-5.0 MEDENT ([facility]) Baso # 0.0 10 0.0-0.2 MEDENT ([facility]) ID Date Data Source [id number] 10/14/2019 10:25:00 AM EDT MEDENT ([facility]) Name Value Range Interpretation Code Description Data Radha rce(s) Supporting Document(s) Ammonia [Mass/volume] in Blood 41 uMOL/L MEDENT ([facility]) Phenytoin [Mass/volume] in Serum or Plasma 10.3 UG/ML 10.0-20.0 MEDENT ([facility]) ID Date Data Source [id number] 09/24/2019 09:01:00 AM EDT MEDENT ([facility]) Name Value Range Interpretation Code Description Data Radha rce(s) Supporting Document(s) Phenytoin [Mass/volume] in Serum or Plasma 9.2 UG/ML 10.0-20.0 MEDENT ([facility]) Phenobarbital [Mass/volume] in Serum or Plasma 29.3 UG/ML 15.0-40.0 MED[facility] ([facility]) ID Date Data Source [id number] 09/24/2019 09:00:00 AM EDT MEDENT ([facility]) Name Value Range Interpretation Code Description Data Radha rce(s) Supporting Document(s) Lamotrigine [Mass/volume] in Serum or Plasma 7.9 ug/mL 2.0-20.0 MEDENT ([facility]) This test was developed and its performa nce characteristics determined by [employer]. It has not been cleared or approved by the Food and Drug Administration. Detection Limit = 1.0 Performed at: [address] [id number] Wellness Nurse: Nomi Barrett MD, Phone: [phone] Levetiracetam [Mass/volume] in Serum or Plasma 14.9 ug/mL 10.0-40.0 MED[facility] ([facility], ) This test was developed and its performa nce characteristics determined by [employer]. It has not been cleared or approved by the Food and Drug Administration. Ammonia [Mass/volume] in Blood 39 uMOL/L [facility] ([facility], ) ID Date Data Source [id number] 08/12/2019 10:56:00 AM EDT [facility] ([facility]) Name Value Range Interpretation Code Description Data Radha rce(s) Supporting Document(s) Ammonia [Mass/volume] in Blood 31 uMOL/L [facility] ([facility], ) ID Date Data Source [id number] 07/20/2019 11:43:00 AM EDT [facility] ([facility], ) Name Value Range Interpretation Code Description Data Radha rce(s) Supporting Document(s) Ammonia [Mass/volume] in Blood 49 uMOL/L [facility] ([facility]) Phenytoin [Mass/volume] in Serum or Plasma 13.3 UG/ML 10.0-20.0 [facility] ([facility], ) ID Date Data Source [id number] 07/07/2019 10:18:00 AM EDT [facility] ([facility], ) Name Value Range Interpretation Code Description Data Radha rce(s) Supporting Document(s) Ammonia [Mass/volume] in Blood 64 uMOL/L [facility] ([facility], ) ID Date Data Source [id number] 06/11/2019 01:36:00 PM EST MED[facility] ([facility], ) Name Value Range Interpretation Code Description Data Radha rce(s) Supporting Document(s) Ammonia [Mass/volume] in Blood 52 uMOL/L [facility] ([facility], ) Procedure Social History Code Duration Value Status Description Data Source(s ) Smoking 03/08/2020 12:00:00 AM EST Never Smoker completed Never S moker eCW1 ([facility]) Smoking 03/08/2020 12:00:00 AM EST Never Smoker completed Never S moker eCW1 ([facility]) Smoking 02/16/2020 12:00:00 AM EDT Never Smoker completed Never S moker eCW1 ([facility]) Smoking 02/16/2020 12:00:00 AM EDT Never Smoker completed Never S moker eCW1 ([facility]) Smoking 02/16/2020 12:00:00 AM EDT Never Smoker completed Never S moker eCW1 ([facility]) Smoking 02/02/2020 12:00:00 AM EDT Never Smoker completed Never S moker eCW1 ([facility]) Smoking 02/02/2020 12:00:00 AM EDT Never Smoker completed Never S moker eCW1 ([facility]) 11/10/2019 12:00:00 AM EDT Denies Smoking completed Afshinie berenice Smoking MED[facility] ([facility], ) Vital Signs ID Date Data Source UNK Name Value Range Interpretation Code Description Data Source(s) Oxygen saturation in Arterial blood by Pulse oximetry 96 % 96 % [facility] ([facility], ) Body weight 228.38 [lb_av] 228.38 [lb_av] MEDEN T ([facility], ) Respiratory rate 16 /min 16 /min [facility] ( [facility]) Heart rate 80 /min 80 /min [facility] ([facility]) Diastolic blood pressure 72 mm[Hg] 72 mm[Hg] [facility] ([facility]) VS as reported by [facility] nurse Systolic blood pressure 132 mm[Hg] 132 mm[Hg] M EDENT ([facility]) VS as reported by [facility] nurse Diastolic blood pressure 74 mm[Hg] 74 mm[Hg] eCW1 ([facility]) Systolic blood pressure 100 mm[Hg] 100 mm[Hg] e CW1 ([facility]) Body mass index (BMI) [Ratio] 30.2 kg/m2 30.2 k g/m2 W1 ([facility]) Body height 73 [in_i] 73 [in_i] eCW1 ([facility]) Body weight [lb_av] eCW1 ([facility]) Diastolic blood pressure 76 mm[Hg] 76 mm[Hg] eCW1 ([facility]) Systolic blood pressure 112 mm[Hg] 112 mm[Hg] e CW1 ([facility]) Body mass index (BMI) [Ratio] 30.2 kg/m2 30.2 k g/m2 eCW1 ([facility]) Body height 73 [in_i] 73 [in_i] eCW1 ([facility]) Body weight [lb_av] eCW1 ([facility]) Diastolic blood pressure 74 mm[Hg] 74 mm[Hg] eCW1 ([facility]) Systolic blood pressure 118 mm[Hg] 118 mm[Hg] e CW1 ([facility]) Body mass index (BMI) [Ratio] 30.2 kg/m2 30.2 k g/m2 eCW1 ([facility]) Body height 73 [in_i] 73 [in_i] eCW1 ([facility]) Body weight [lb_av] eCW1 ([facility]) Body weight 104.328 kg 104.328 kg [facility] ([facility]) Body mass index (BMI) [Ratio] 32.1 kg/m2 32.1 k g/m2 [facility] ([facility]) Body weight 230.00 [lb_av] 230.00 [lb_av] MEDEN T ([facility]) aide states Body height 71 [in_i] 71 [in_i] [facility] ([facility]) 5'11" Body temperature 98.3 [degF] 98.3 [degF] [facility] ([facility]) Oxygen saturation in Arterial blood by Pulse oximetry 92 % 92 % [facility] ([facility]) Heart rate 85 /min 85 /min [facility] ([facility]) Diastolic blood pressure 70 mm[Hg] 70 mm[Hg] [facility] ([facility]) Systolic blood pressure 110 mm[Hg] 110 mm[Hg] [facility] ([facility]) Respiratory rate 16 /min 16 /min [facility] ( [facility]) Heart rate 76 /min 76 /min [facility] ([facility]) Diastolic blood pressure 70 mm[Hg] 70 mm[Hg] [facility] ([facility]) Systolic blood pressure 110 mm[Hg] 110 mm[Hg] [facility] ([facility]) Body weight 99.792 kg 99.792 kg [facility] ([facility]) Body mass index (BMI) [Ratio] 30.7 kg/m2 30.7 k g/m2 [facility] ([facility]) Body weight 220.00 [lb_av] 220.00 [lb_av] MEDEN T ([facility]) Body height 71 [in_i] 71 [in_i] [facility] ([facility] 5'11" Diastolic blood pressure 70 mm[Hg] 70 mm[Hg] [facility] ([facility], ) Systolic blood pressure 110 mm[Hg] 110 mm[Hg] M EDENT ([facility], ) Diastolic blood pressure 72 mm[Hg] 72 mm[Hg] eCW1 ([facility]) Systolic blood pressure mm[Hg] e CW1 ([facility]) Body temperature 97.2 [degF] 97.2 [degF] eCW1 ( [facility]) Respiratory rate 18 /min 18 /min eCW1 ([facility]) Heart rate 86 /min 86 /min eCW1 ([facility]) Body mass index (BMI) [Ratio] 29.02 kg/m2 29.02 kg/m2 eCW1 ([facility]) Body height 73 [in_us] 73 [in_us] eCW1 ([facility]) Body weight Measured 220 [lb_av] 220 [lb_av] eC W1 ([facility]) Respiratory rate 16 /min 16 /min [facility] ( [facility], ) Heart rate 76 /min 76 /min [facility] ([facility], ) Diastolic blood pressure 80 mm[Hg] 80 mm[Hg] [facility] ([facility], ) Systolic blood pressure 112 mm[Hg] 112 mm[Hg] [facility] Patient Treatment Plan of Care Planned Activity Planned Date Details Description Data Source (s) Gentamicin Sulfate (SHELTER) 0.001 MG/MG Topical Ointment 02/18/2020 12:00:00 AM EDT eCW1 (Replaced by [facility]) Gentamicin Sulfate (SHELTER) 0.001 MG/MG Topical Ointment 02/18/2020 12:00:00 AM EDT eCW1 (Replaced by [facility]) doxycycline hyclate 100 MG Oral Capsule 02/16/2020 12:00:00 AM EDT eCW1 ([facility]) doxycycline hyclate 100 MG Oral Capsule 02/16/2020 12:00:00 AM EDT eCW1 ([facility]) doxycycline hyclate 100 MG Oral Capsule 02/16/2020 12:00:00 AM EDT eCW1 ([facility]) Triamcinolone Acetonide 1 MG/ML Topical Cream 02/02/2020 12:00:00 A M EDT eCW1 ([facility]) Triamcinolone Acetonide 1 MG/ML Topical Cream 02/02/2020 12:00:00 A M EDT eCW1 ([facility]) Triamcinolone Acetonide 1 MG/ML Topical Cream 02/02/2020 12:00:00 A M EDT eCW1 ([facility]) Triamcinolone Acetonide 1 MG/ML Topical Cream 02/02/2020 12:00:00 A M EDT eCW1 ([facility])
--- OUTSIDE RECORDS SUMMARY | 2020-06-11 09:29 | CCD ---
Author Author [facility] Organization [facility] Address Unknown Phone Unavailable Care Team Providers Care Ground Support Equipment Mechanic Name Role Phone Khris ABERNATHY MD Unavailable [...] Unavailable Unavailable Khris ABERNATHY MD Unavailable Unavailable Irving, Oanh Ernesto Unavailable Unavailable Karley, Oanh Ernesto Unavailable Unavailable Karley, Oanh Ernesto Unavailable Unavailable Irving, Oanh Ernesto Unavailable Unavailable Irving, Oanh Ernesot Unavailable Unavailable Karley, Oanh Ernesto Unavailable Unavailable Karley, Oanh Ernesto Unavailable Unavailable Irving, Oanh Ernesto Unavailable Unavailable NRI, A173 Unavailable [...] J Omayra PA Unavailable Unavailable Trickey, J Omayar PA Unavailable Unavailable Trickey, J Omayra PA [...] PAN, EVELYN Unavailable Unavailable Rocio, L Mily LYE TREATER Unavailable Unavailable Rocio, L Mily LYE TREATER Unavailable Unavailable Rocio, L Mily LYE TREATER Unavailable Unavailable Rocio, L Mily LYE TREATER Unavailable Unavailable Rocio, L Mily LYE TREATER Unavailable Unavailable Rocio, L Mily LYE TREATER Unavailable Unavailable Rocio, L Mily LYE TREATER Unavailable Unavailable Rocio, L Mily LYE TREATER Unavailable Unavailable Rocio, L Mily LYE TREATER Unavailable Unavailable Rocio, L Mily LYE TREATER Unavailable Unavailable Rocio, L Mily LYE TREATER Unavailable Unavailable Rocio, L Mily LYE TREATER Unavailable Unavailable Rocio, L Mily LYE TREATER Unavailable Unavailable Rocio, L Mily LYE TREATER Unavailable Unavailable Rocio, L Mily LYE TREATER Unavailable Unavailable Rocio, L Mily LYE TREATER Unavailable Unavailable Rocio, L Mily LYE TREATER Unavailable Unavailable Rocio, L Mily LYE TREATER Unavailable Unavailable Rocio, L Mily LYE TREATER Unavailable Unavailable Rocio, L Mily LYE TREATER Unavailable Unavailable Rocio, L Mily LYE TREATER Unavailable Unavailable Rocio, L Mily LYE TREATER Unavailable Unavailable Re-disclosure Warning The records that [...] is protected by Article 27-F of the [facility] Public Health law. If you continue you may have access to information: Regarding HIV / AIDS; Provided by facilities licensed or operated by the [facility] Office of Mental Health; or Provided by the [facility] Office for People With Developmental Disabilities. If such information is present, then the following [facility] mandated warning applies: This information has been [...] law may result in a fine or shelter sentence or both. A general authorization for the release of medical or other information is NOT sufficient authorization for further disc losure. Allergies and Adverse Reactions Type Description Substance Reaction Status Data Source(s ) Drug allergy Haloperidol Haloperidol Unknown Active eCW1 ([facility]) Tegaderm Tegaderm Tegaderm Unknown Active eCW1 ([facility]) Lurasidone HCl Lurasidone HCl Lurasidone HCl Unknown Active eC W1 ([facility]) FEBATOL FEBATOL FEBATOL UNKNOWN Active eCW1 ([facility]) Oxybutynin Oxybutynin Oxybutynin urinary retention Active eCW1 ( [facility]) Family History Family Member Name Family Member Gender Family Member Status Date o f Status Description Data Source(s) Unknown Unknown Problem MEDENT ([facility]) Unknown Female Problem MEDENT ([facility]) Encounters Encounter Providers Location Date Indications Data Source(s ) Outpatient Attender: RAMANDEEP HILLS [facility] 05/11/2020 10:00:00 AM EST MEDENT (Tj Oshea MD) Office Visit Attender: Omayra HILLS Main office - [facility] 05/08/2020 07:45:00 AM EST MED[facility] ([facility]) Office Visit Attender: Omayra HILLS Main office - [facility] n 04/27/2020 10:30:00 AM EST [facility] ([facility]) [place] [address] [facility] [address] 03/10/2020 12:00:00 AM EST eCW1 ([facility]) Outpatient [address] [facility] [place] [address] 03/08/2020 12:00:00 AM EST eCW1 ([facility]) Outpatient Attender: RAMANDEEP HILLS [facility] 03/07/2020 09:00:00 AM EST MEDENT (Tj Oshea MD) [place] [address] [facility] [address] 02/18/2020 12:00:00 AM EDT eCW1 ([facility]) Outpatient Attender: Nathalia Pool MD Physical Therap y 02/17/2020 01:00:00 PM EDT MEDENT ([facility]) [place] [address] [facility] [address] 02/16/2020 12:00:00 AM EDT eCW1 ([facility]) [place] [address] [facility] [address] 02/16/2020 12:00:00 AM EDT eCW1 ([facility]) [place] [address] [facility] [address] 02/15/2020 12:00:00 AM EDT eCW1 ([facility]) [place] [address] [facility] [address] 02/02/2020 12:00:00 AM EDT eCW1 ([facility]) Outpatient Attender: Omayra HILLS [facility] n 01/12/2020 11:30:00 AM EDT MEDENT ([facility]) Outpatient Attender: Mily Skel[place] 11/10/2019 11:30:00 AM EDT MEDENT ([facility]) Outpatient Referrer: [...] [facility] Outpatient Attender: Omayra HILLS [facility] n 06/30/2019 10:00:00 AM EST MEDENT ([facility]) Outpatient Attender: Ernesto Skel[place] 06/22/2019 09:00:00 AM EST MEDENT ([facility]) [facility] [address] [place] [address] 06/18/2019 12:00:00 AM EST eCW1 ([facility]) Outpatient Referrer: [id number] NRI 06/16/2019 08:08:00 PM EST [facility] Outpatient Referrer: [id number] NRI 06/08/2019 02:42:00 PM EST [facility] Outpatient Attender: AIDEE Skelton/Tosha Curiel 06/08/2019 01:00:00 PM EST MEDENT ([facility]) Outpatient Attender: Omayra HILLS [facility] 06/08/2019 09:30:00 AM EST MEDENT ([facility]) [facility] [address] [place], [place] [address] 06/02/2019 12:00:00 AM EST eCW1 ([facility]) [facility] [address] [place] [address] 06/01/2019 12:00:00 AM EST eCW1 ([facility]) [facility] [address] [place] [phone] 04/30/2019 12:00:00 AM EST eCW1 ([facility]) Medications Medication Brand Name Start Date Product Form Dose Route Admi nistrative Instructions Pharmacy Instructions Status Indications Reaction Description Data Source(s) Gentamicin Sulfate (FCI) 0.001 MG/MG Topical Ointment Gentamicin Sulfate 0.1 % Gentamicin Sulfate 0.1 % 02/18/2020 12:00:00 AM EDT active Gentamicin Sulfate 0.1 % eCW1 ([facility]) Gentamicin Sulfate (FCI) 0.001 MG/MG Topical Ointment Gentamicin Sulfate 0.1 % Gentamicin Sulfate 0.1 % 02/18/2020 12:00:00 AM EDT active Gentamicin Sulfate 0.1 % eCW1 ([facility]) Gentamicin Sulfate (FCI) 0.001 MG/MG Topical Ointment Gentamicin Sulfate 0.1 % Gentamicin Sulfate 0.1 % 02/18/2020 12:00:00 AM EDT suspended Gentamicin Sulfate 0.1 % eCW1 ([facility]) Gentamicin Sulfate (FCI) 0.001 MG/MG Topical Ointment Gentamicin Sulfate 0.1 % Gentamicin Sulfate 0.1 % 02/18/2020 12:00:00 AM EDT suspended Gentamicin Sulfate 0.1 % eCW1 ([facility]) doxycycline hyclate 100 MG Oral Capsule Doxycycline Hy clate 100 MG Doxycycline Hyclate 100 MG 02/16/2020 12:00:00 AM EDT 1.0 {capsule} suspended Doxycycline Hyclate 100 MG eCW1 ([facility]) doxycycline hyclate 100 MG Oral Capsule Doxycycline Hy clate 100 MG Doxycycline Hyclate 100 MG 02/16/2020 12:00:00 AM EDT 1.0 {capsule} active Doxycycline Hyclate 100 MG eCW1 ([facility]) doxycycline hyclate 100 MG Oral Capsule Doxycycline Hy clate 100 MG Doxycycline Hyclate 100 MG 02/16/2020 12:00:00 AM EDT 1.0 {capsule} active Doxycycline Hyclate 100 MG eCW1 ([facility]) doxycycline hyclate 100 MG Oral Capsule Doxycycline Hy clate 100 MG Doxycycline Hyclate 100 MG 02/16/2020 12:00:00 AM EDT 1.0 {capsule} active Doxycycline Hyclate 100 MG eCW1 ([facility]) doxycycline hyclate 100 MG Oral Capsule Doxycycline Hy clate 100 MG Doxycycline Hyclate 100 MG 02/16/2020 12:00:00 AM EDT 1.0 {capsule} suspended Doxycycline Hyclate 100 MG eCW1 ([facility]) Triamcinolone Acetonide 1 MG/ML Topical Cream Triamcin olone Acetonide 0.1 % Triamcinolone Acetonide 0.1 % 02/02/2020 12:00:00 AM EDT 1.0 {appli cation} active Triamcinolone Acetonide 0 .1 % eCW1 ([facility]) Triamcinolone Acetonide 1 MG/ML Topical Cream Triamcin olone Acetonide 0.1 % Triamcinolone Acetonide 0.1 % 02/02/2020 12:00:00 AM EDT 1.0 {appli cation} active Triamcinolone Acetonide 0 .1 % eCW1 ([facility]) Triamcinolone Acetonide 1 MG/ML Topical Cream Triamcin olone Acetonide 0.1 % Triamcinolone Acetonide 0.1 % 02/02/2020 12:00:00 AM EDT 1.0 {appli cation} active Triamcinolone Acetonide 0 .1 % eCW1 ([facility]) Triamcinolone Acetonide 1 MG/ML Topical Cream Triamcin olone Acetonide 0.1 % Triamcinolone Acetonide 0.1 % 02/02/2020 12:00:00 AM EDT 1.0 {appli cation} active Triamcinolone Acetonide 0 .1 % eCW1 ([facility]) Triamcinolone Acetonide 1 MG/ML Topical Cream Triamcin olone Acetonide 0.1 % Triamcinolone Acetonide 0.1 % 02/02/2020 12:00:00 AM EDT 1.0 {appli cation} active Triamcinolone Acetonide 0 .1 % eCW1 ([facility]) Triamcinolone Acetonide 1 MG/ML Topical Cream Triamcin olone Acetonide 0.1 % Triamcinolone Acetonide 0.1 % 02/02/2020 12:00:00 AM EDT 1.0 {appli cation} active Triamcinolone Acetonide 0 .1 % eCW1 ([facility]) Triamcinolone Acetonide 1 MG/ML Topical Cream Triamcin olone Acetonide 0.1 % Triamcinolone Acetonide 0.1 % 02/02/2020 12:00:00 AM EDT 1.0 {appli cation} active Triamcinolone Acetonide 0 .1 % eCW1 ([facility]) Phenytoin sodium 30 MG Extended Release Oral Capsule [Dilant in] Dilantin 07/09/2019 12:00:00 AM EDT ORAL active MEDENT ([facility]) Lactulose 667 MG/ML Oral Solution Lactulose 06/08/2019 12:00:00 AM EST ORAL active MEDENT ([facility]) Insurance Providers Payer name Policy type / Coverage type Policy ID Covered libertarian ID Covered libertarian's relationship to baer Policy Baer Plan Information EMEDNY [id number] SP [id number] MEDICARE [id number] SP [id number] MEDICARE C [id number] S [id number] MEDICAID M [id number] MEDICARE [id number] SP [id number] EMEDNY [id number] SP [id number] MEDICAID [id number] SP [id number] MEDICAID [id number] SP [id number] [place] [id number] Self [id number] Medicare [place] Gov't Serv[place] Medicare Primary [id number] Self [id number] [place] [id number] Self [id number] Medicare - NGS Medicare Primary [id number] Self [id number] Medicare Part B Medicare Primary [id number] Self [id number] Medicaid Medigap Part B [id number] Self [id number] MEDICAID [id number] SP [id number] ANSI-Medicaid [id number] ANSI-Medicare Part B [id number] ANSI-Medicaid [id number] ANSI-Medicare Part B [id number] MEDICARE [id number] SP [id number] MEDICARE C [id number] S [id number] [place] [id number] Self [id number] Medicare - NGS Medicare Primary [id number] Self [id number] Medicare Part B Medicare Primary [id number] Self [id number] TODAYS OPTIONS [id number] SP [id number] [place] [id number] Self [id number] Medicare [place]l Gov't Servi Medicare Primary [id number] Self [id number] MEDICARE [id number] SP [id number] A MEDICAID [id number] SP [id number] Medicare Part B Medicare Primary [id number] Self [id number] Medicare Part B Medicare Primary [id number] Self [id number] MEDICAID [id number] SP [id number] [place] [id number] Self [id number] Medicare [place] Gov't Servi Medicare Primary [id number] Self [id number] Medicare Part B Medicare Primary [id number] Self [id number] Medicare Part B Medicare Primary [id number] Self [id number] Medicare Part B Medicare Primary [id number] Self [id number] Medicare Part B Medicare Primary [id number] Self [id number] Medicare Part B Medicare Primary [id number] Self [id number] Medicare Part B Medicare Primary [id number] Self [id number] Medicare Part B Medicare Primary [id number] Self [id number] Medicare Part B Medicare Primary [id number] Self [id number] Medicare Part B Medicare Primary [id number] Self [id number] Medicare Part B Medicare Primary [id number] Self [id number] Medicare Part B Medicare Primary [id number] Self [id number] Medicare Part B Medicare Primary [id number] Self [id number] Medicare Part B Medicare Primary [id number] Self [id number] Medicare Part B Medicare Primary [id number] Self [id number] Medicare Part B Medicare Primary [id number] Self [id number] Medicare Dme Supplies Medigap Part B [id number] Self [id number] [place] Primary [id number] Self [id number] [place] [id number] Self [id number] Medicare Dme Supplies Medigap Part B [id number] Self [id number] [place] Primary [id number] Self [id number] Medicare Dme Supplies Medigap Part B [id number] Self [id number] [place] Primary [id number] Self [id number] Medicare Part B Medicare Primary [id number] Self [id number] [place] Self [place] Dme Supplies Medigap Part B Self [place] Primary Self Medicaid Medigap Part B Self Medicare Part B [place] Primary Self [place] B Self [place] Gov't Servi Medicare Primary Self Medicaid Medicaid Self Medicare Medicare Primary Self [id number] [facility] [id number] A Surgeries/Procedures Procedure Description Date Indications Data Source(s) X-Ray Clavicle Complete 10/07/2019 12:00:00 AM EDT MEDENT ([facility] ) RADEX SHOULDER COMPLETE MINIMUM 2 VIEWS 10/07/2019 12: 00:00 AM EDT MEDENT ([facility] ) Office Visit, Est Pt., Level 2 FC 06/18/2019 12:00:00 AM EST eCW1 ([facility]) Office Visit, Est Pt., Level 3 PC 06/18/2019 12:00:00 AM EST eCW1 ([facility]) US URINE CAPACITY MEASURE 06/18/2019 12:00:00 AM EST eCW1 ([facility]) I & D Abscess Simple 06/08/2019 12:00:00 AM EST MEDENT ([facility], ) Results ID Date Data Source [id number] 05/09/2020 09:06:00 AM EST MEDENT ([facility] ) Name Value Range Interpretation Code Description Data Radha rce(s) Supporting Document(s) Phenytoin [Mass/volume] in Serum or Plasma 18.2 UG/ML 10.0-20.0 MEDENT ([facility] ) Lamotrigine [Mass/volume] in Serum or Plasma 7.8 ug/mL 2.0-20.0 MEDENT ([facility] ) Testing on this sample was performed by homogeneous enzyme immunoassay. Detection Limit = 1.0 Performed at: [facility] [id number] Nursing Program Coordinator: Nomi Barrett MD, Phone: [phone] Performed at: [facility] [address] [place] [id number] Nursing Program Coordinator: Jihan Mena [facility], Phone: [phone] Levetiracetam [Mass/volume] in Serum or Plasma 27.7 ug/mL 10.0-40.0 MEDENT ([facility] ) This test was developed and its performa nce characteristics determined by [facility]. It has not been cleared or approved by the Food and Drug Administration. ID Date Data Source [id number] 05/03/2020 01:05:00 AM EST [facility] Name Value Range Interpretation Code Description Data Radha rce(s) Supporting Document(s) SARS coronavirus 2 RNA [Presence] in Res piratory specimen by DORIS with probe detection POSITIVE [facility] This lab was ordered by [facility] a nd reported by [facility]. ID Date Data Source [id number] 04/17/2020 02:13:00 PM EST [facility] Name Value Range Interpretation Code Description Data Radha rce(s) Supporting Document(s) SARS coronavirus 2 RNA [Presence] in Res piratory specimen by DORIS with probe detection [facility] This lab was ordered by [facility] a nd reported by [facility]. ID Date Data Source [id number] 03/02/2020 09:01:00 AM EST MEDENT (Tj Oshea MD) Name Value Range Interpretation Code Description Data Radha rce(s) Supporting Document(s) Laboratory test finding (navigational concept) 1.560 uIU/ML 0 .358-3.740 Normal (applies to non-numeric results) MEDENT (Tj Oshea MD) Laboratory test finding (navigational concept) 0.48 ng/dL 0 .76-1.46 Below low normal MEDENT (Tj Oshea MD) ID Date Data Source [id number] 03/02/2020 09:01:00 AM EST MEDENT (Tj Oshea MD) Name Value Range Interpretation Code Description Data Radha rce(s) Supporting Document(s) Prostate specific Ag [Mass/volume] in Serum or Plasma 0.04 ng/mL Normal (applies to non-numeric results) MEDENT (Tj Oshea MD) The PSA assay is performed on the Clinical Ink analyzer by [employer] sandwich chemiluminescent immunoassay and should not be compared interchangeably with other methods. It should not be used alone as a screening test or diagnosis for the presence or absence of malignant disease. Predictions of disease recurrence should not be based solely on values obtained from serial patient serum values. ID Date Data Source [id number] 03/02/2020 09:01:00 AM EST [facility] (Tj Oshea [...] (Tj Oshea MD) ID Date Data Source [id number] 03/02/2020 09:01:00 AM EST [facility] (Tj Oshea [...] Little GFR Left</content>
<content>ESRD GFR <15 on TABLE OPERATOR</content>
<content></content> Laboratory test finding (navigational concept) 108 [...] (Tj Oshea MD) ID Date Data Source [id number] 03/02/2020 09:01:00 AM EST MEDENT (Tj Oshea [...] WOUND CULTURE 02/18/2020 11:22:27 AM EDT eCW1 ([facility]) Name Value Range Interpretation Code Description Data Radha rce(s) Supporting Document(s) FULL REPORT IN LAB NOTES (eCW and [facility]). WOUND CULTURE eCW1 ([facility]) ID Date Data Source [id number] 01/05/2020 12:37:00 PM EDT MEDENT ([facility], ) Name Value Range Interpretation Code Description Data Radha rce(s) Supporting Document(s) Phenobarbital [Mass/volume] in Serum or Plasma 28.6 UG/ML 15.0-40.0 MEDENT ([facility], ) Phenytoin [Mass/volume] in Serum or Plasma 9.3 UG/ML 10.0-20.0 MEDENT ([facility]) Levetiracetam [Mass/volume] in Serum or Plasma 12.4 ug/mL 10.0-40.0 MEDENT ([facility]) This test was developed and its performa nce characteristics determined by [facility]. It has not been cleared or approved by the Food and Drug Administration. Ammonia [Mass/volume] in Blood 37 uMOL/L MEDENT ([facility], ) Lamotrigine [Mass/volume] in Serum or Plasma 6.3 ug/mL 2.0-20.0 MEDENT ([facility]) Testing on this sample was performed by homogeneous enzyme immunoassay. Detection Limit = 1.0 Performed at: [facility] [id number] Nursing Program Coordinator: Nomi Barrett MD, Phone: [phone] Performed at: [facility] [address] [id number] Nursing Program Coordinator: Jihan Mena [facility], Phone: [phone] ID Date Data Source [id number] 01/05/2020 12:37:00 PM EDT MEDENT ([facility] ) Name Value Range Interpretation Code Description Data Radha rce(s) Supporting Document(s) Creatinine For GFR 0.95 mg/dL 0.70-1.30 MEDENT ([facility], ) Blood Urea Nitrogen 18 mg/dL 7-18 MEDENT ([facility], ) Glucose, Fasting 111 mg/dL 70-100 MEDENT ([facility]) Glomerular Filtration Rate Laboratory test result MEDENT ([facility]) <content>Units are mL/min/1.73 m2</content>
<content></content>
<content>Chronic Kidney Disease Staging per NKF:</content>
<content></content>
<content>Stage I & II GFR >=60 Normal to Mildly Decreased</content>
<content>Stage III GFR 30- 59 Moderately Decreased</content>
<content>Stage IV GFR 15-29 Severely Decreased</content>
<content>Stage V GFR <15 Very Little GFR Left</content>
<content>ESRD GFR <15 on TABLE OPERATOR</content>
<content></content> Sodium Level 142 meq/L 136-145 MEDENT ([facility], ) Chloride Level 109 meq/L 98-107 MEDENT ([facility]) Potassium Serum 4.6 meq/L 3.5-5.1 MEDENT ([facility]) Carbon Dioxide Level 29 meq/L 21-32 MEDENT ([facility]) Ast/Sgot 15 U/L 7-37 MEDENT ([facility]) Calcium Level 8.6 mg/dL 8.8-10.2 MEDENT ([facility]) Anion Gap 4 meq/L 8-16 MEDENT ([facility]) Alkaline Phosphatase 137 U/L 45-117 MEDENT ([facility]) Bilirubin,Total 0.2 mg/dL 0.2-1.0 MEDENT ([facility]) Alt/SGPT 24 U/L 12-78 MEDENT ([facility]) Albumin/Globulin Ratio 1.2 MEDENT ([facility]) Total Protein 6.9 GM/DL 6.4-8.2 MEDENT ([facility]) Albumin 3.8 GM/DL 3.2-5.2 MEDENT ([facility]) ID Date Data Source [id number] 01/05/2020 12:26:00 PM EDT MEDENT ([facility]) Name Value Range Interpretation Code Description Data Radha rce(s) Supporting Document(s) White Blood Count 4.6 10 4.0-10.0 MEDENT ([facility]) Red Blood Count 4.50 10 4.30-6.10 MEDENT ([facility]) Hemoglobin 13.4 g/dL 13.5-17.5 MEDENT ([facility]) Mean Corpuscular Hemoglobin 29.8 pg 27.0-33.0 MEDENT ([facility]) Mean Corpuscular Volume 94.0 fl 80.0-96.0 M EDENT ([facility]) Hematocrit 42.3 % 42.0-52.0 MEDENT ([facility]) Platelet Count, Automated 167 10 150-450 MEDENT ([facility]) Mean Corpuscular HGB Conc 31.7 g/dL 32.0-36.5 MEDENT ([facility]) Red Cell Distribution Width 13.3 % 11.5-14.5 MEDENT ([facility]) [place] % 8.7 % 0.0-5.0 MEDENT ([facility]) Lymph % 33.5 % 24.0-44.0 MEDENT ([facility]) Neutrophils % 51.2 % 36.0-66.0 MEDENT ([facility]) Eos % 5.8 % 0.0-3.0 MEDENT ([facility]) Baso % 0.6 % 0.0-1.0 MEDENT ([facility]) Nucleated Red Blood Cell % 0.0 % 0-0 MED ENT ([facility]) Neutrophils # 2.4 10 1.5-8.5 MEDENT ([facility]) Immature Granulocyte % 0.2 % 0-3.0 MEDENT ([facility]) Eos # 0.3 10 0.0-0.5 MEDENT ([facility]) [place] # 0.4 10 0.0-0.8 MEDENT ([facility]) Lymph # 1.6 10 1.5-5.0 MEDENT ([facility]) Baso # 0.0 10 0.0-0.2 MEDENT ([facility]) ID Date Data Source [id number] 10/14/2019 10:25:00 AM EDT MEDENT ([facility]) Name Value Range Interpretation Code Description Data Radha rce(s) Supporting Document(s) Ammonia [Mass/volume] in Blood 41 uMOL/L MEDENT ([facility]) Phenytoin [Mass/volume] in Serum or Plasma 10.3 UG/ML 10.0-20.0 MEDENT ([facility]) ID Date Data Source [id number] 09/24/2019 09:01:00 AM EDT MEDENT ([facility]) Name Value Range Interpretation Code Description Data Radha rce(s) Supporting Document(s) Phenytoin [Mass/volume] in Serum or Plasma 9.2 UG/ML 10.0-20.0 MEDENT ([facility]) Phenobarbital [Mass/volume] in Serum or Plasma 29.3 UG/ML 15.0-40.0 MEDENT ([facility]) ID Date Data Source [id number] 09/24/2019 09:00:00 AM EDT MEDENT ([facility]) Name Value Range Interpretation Code Description Data Radha rce(s) Supporting Document(s) Lamotrigine [Mass/volume] in Serum or Plasma 7.9 ug/mL 2.0-20.0 MEDENT ([facility]) This test was developed and its performa nce characteristics determined by [employer]. It has not been cleared or approved by the Food and Drug Administration. Detection Limit = 1.0 Performed at: [address] [id number] Nursing Program Coordinator: Nomi Barrett MD, Phone: [phone] Levetiracetam [Mass/volume] in Serum or Plasma 14.9 ug/mL 10.0-40.0 MEDENT ([facility], ) This test was developed and its performa nce characteristics determined by [facility]. It has not been cleared or approved by the Food and Drug Administration. Ammonia [Mass/volume] in Blood 39 uMOL/L MEDENT ([facility], ) ID Date Data Source [id number] 08/12/2019 10:56:00 AM EDT MED[facility] ([facility]) Name Value Range Interpretation Code Description Data Radha rce(s) Supporting Document(s) Ammonia [Mass/volume] in Blood 31 uMOL/L MEDENT ([facility], ) ID Date Data Source [id number] 07/20/2019 11:43:00 AM EDT MEDENT ([facility], ) Name Value Range Interpretation Code Description Data Radha rce(s) Supporting Document(s) Ammonia [Mass/volume] in Blood 49 uMOL/L MED[facility] ([facility]) Phenytoin [Mass/volume] in Serum or Plasma 13.3 UG/ML 10.0-20.0 MED[facility] ([facility], ) ID Date Data Source [id number] 07/07/2019 10:18:00 AM EDT MEDENT ([facility] ) Name Value Range Interpretation Code Description Data Radha rce(s) Supporting Document(s) Ammonia [Mass/volume] in Blood 64 uMOL/L MED[facility] ([facility], ) ID Date Data Source [id number] 06/11/2019 01:36:00 PM EST MEDENT ([facility], ) Name Value Range Interpretation Code Description Data Radha rce(s) Supporting Document(s) Ammonia [Mass/volume] in Blood 52 uMOL/L MED[facility] ([facility], ) Procedure Social History Code Duration Value Status Description Data Source(s ) Smoking 03/08/2020 12:00:00 AM EST Never Smoker completed Never S moker eCW1 ([facility]) Smoking 03/08/2020 12:00:00 AM EST Never Smoker completed Never S moker eCW1 ([facility]) Smoking 02/16/2020 12:00:00 AM EDT Never Smoker completed Never S moker eCW1 ([facility]) Smoking 02/16/2020 12:00:00 AM EDT Never Smoker completed Never S moker eCW1 ([facility]) Smoking 02/16/2020 12:00:00 AM EDT Never Smoker completed Never S moker eCW1 ([facility]) Smoking 02/02/2020 12:00:00 AM EDT Never Smoker completed Never S moker eCW1 ([facility]) Smoking 02/02/2020 12:00:00 AM EDT Never Smoker completed Never S moker eCW1 ([facility]) 11/10/2019 12:00:00 AM EDT Denies Smoking completed Afshinie berenice Smoking MED[facility] ([facility], ) Vital Signs ID Date Data Source UNK Name Value Range Interpretation Code Description Data Source(s) Oxygen saturation in Arterial blood by Pulse oximetry 96 % 96 % MED[facility] ([facility], ) Body weight 228.38 [lb_av] 228.38 [lb_av] MEDEN T ([facility], ) Respiratory rate 16 /min 16 /min MED[facility] ( [facility]) Heart rate 80 /min 80 /min MED[facility] ([facility]) Diastolic blood pressure 72 mm[Hg] 72 mm[Hg] MED[facility] ([facility]) VS as reported by [facility]N nurse Systolic blood pressure 132 mm[Hg] 132 mm[Hg] M EDENT ([facility]) VS as reported by [facility] nurse Diastolic blood pressure 74 mm[Hg] 74 mm[Hg] eCW1 ([facility]) Systolic blood pressure 100 mm[Hg] 100 mm[Hg] e CW1 ([facility]) Body mass index (BMI) [Ratio] 30.2 kg/m2 30.2 k g/m2 W1 ([facility]) Body height 73 [in_i] 73 [in_i] eCW1 ([facility]) Body weight [lb_av] eCW1 ([facility]) Diastolic blood pressure 76 mm[Hg] 76 mm[Hg] eCW1 ([facility]) Systolic blood pressure 112 mm[Hg] 112 mm[Hg] e CW1 ([facility]) Body mass index (BMI) [Ratio] 30.2 kg/m2 30.2 k g/m2 eCW1 ([facility]) Body height 73 [in_i] 73 [in_i] eCW1 ([facility]) Body weight [lb_av] eCW1 ([facility]) Diastolic blood pressure 74 mm[Hg] 74 mm[Hg] eCW1 ([facility]) Systolic blood pressure 118 mm[Hg] 118 mm[Hg] e CW1 ([facility]) Body mass index (BMI) [Ratio] 30.2 kg/m2 30.2 k g/m2 eCW1 ([facility]) Body height 73 [in_i] 73 [in_i] eCW1 ([facility]) Body weight [lb_av] eCW1 ([facility]) Body weight 104.328 kg 104.328 kg [facility] (Health system) Body mass index (BMI) [Ratio] 32.1 kg/m2 32.1 k g/m2 [facility] ([facility]) Body weight 230.00 [lb_av] 230.00 [lb_av] MEDEN T ([facility]) aide states Body height 71 [in_i] 71 [in_i] [facility] (Health system) 5'11" Body temperature 98.3 [degF] 98.3 [degF] [facility] ([facility]) Oxygen saturation in Arterial blood by Pulse oximetry 92 % 92 % [facility] ([facility]) Heart rate 85 /min 85 /min [facility] ([facility]) Diastolic blood pressure 70 mm[Hg] 70 mm[Hg] [facility] ([facility]) Systolic blood pressure 110 mm[Hg] 110 mm[Hg] [facility] ([facility]) Respiratory rate 16 /min 16 /min [facility] ( [facility]) Heart rate 76 /min 76 /min [facility] ([facility]) Diastolic blood pressure 70 mm[Hg] 70 mm[Hg] [facility] ([facility]) Systolic blood pressure 110 mm[Hg] 110 mm[Hg] [facility] ([facility]) Body weight 99.792 kg 99.792 kg [facility] (Health system) Body mass index (BMI) [Ratio] 30.7 kg/m2 30.7 k g/m2 [facility] ([facility]) Body weight 220.00 [lb_av] 220.00 [lb_av] MEDEN T ([facility]) Body height 71 [in_i] 71 [in_i] MEDENT ([facility] 5'11" Diastolic blood pressure 70 mm[Hg] 70 mm[Hg] MED[facility] ([facility], ) Systolic blood pressure 110 mm[Hg] 110 mm[Hg] M EDENT ([facility], ) Diastolic blood pressure 72 mm[Hg] 72 mm[Hg] eCW1 ([facility]) Systolic blood pressure mm[Hg] e CW1 ([facility]) Body temperature 97.2 [degF] 97.2 [degF] eCW1 ( [facility]) Respiratory rate 18 /min 18 /min eCW1 ([facility]) Heart rate 86 /min 86 /min eCW1 ([facility]) Body mass index (BMI) [Ratio] 29.02 kg/m2 29.02 kg/m2 eCW1 ([facility]) Body height 73 [in_us] 73 [in_us] eCW1 ([facility]) Body weight Measured 220 [lb_av] 220 [lb_av] eC W1 ([facility]) Respiratory rate 16 /min 16 /min MEDENT ( [facility], ) Heart rate 76 /min 76 /min MEDENT ([facility], ) Diastolic blood pressure 80 mm[Hg] 80 mm[Hg] MED[facility] ([facility] ) Systolic blood pressure 112 mm[Hg] 112 mm[facility]Hg[facility] Patient Treatment Plan of Care Planned Activity Planned Date Details Description Data Source (s) Gentamicin Sulfate (FCI) 0.001 MG/MG Topical Ointment 02/18/2020 12:00:00 AM EDT eCW1 ([facility]) Gentamicin Sulfate (FCI) 0.001 MG/MG Topical Ointment 02/18/2020 12:00:00 AM EDT eCW1 ([facility]) doxycycline hyclate 100 MG Oral Capsule 02/16/2020 12:00:00 AM EDT eCW1 ([facility]) doxycycline hyclate 100 MG Oral Capsule 02/16/2020 12:00:00 AM EDT eCW1 ([facility]) doxycycline hyclate 100 MG Oral Capsule 02/16/2020 12:00:00 AM EDT eCW1 ([facility]) Triamcinolone Acetonide 1 MG/ML Topical Cream 02/02/2020 12:00:00 A M EDT eCW1 ([facility]) Triamcinolone Acetonide 1 MG/ML Topical Cream 02/02/2020 12:00:00 A M EDT eCW1 ([facility]) Triamcinolone Acetonide 1 MG/ML Topical Cream 02/02/2020 12:00:00 A M EDT eCW1 ([facility]) Triamcinolone Acetonide 1 MG/ML Topical Cream 02/02/2020 12:00:00 A M EDT eCW1 ([facility])
[2020-06-11] MEDS ORDERED: cefTRIAXone SOD 1GM VIAL (J0696 PER 250MG) IM ONE (09:30)
[2020-06-11] MEDS ORDERED: LIDOCAINE 1% SDV 5ML VIAL DILUENT ONE (09:30)
== END 2020-06-11 10:18 | disposition home or self-care (01) ==
LOC: M ED 09:12
DX: L02.811 Cutaneous abscess of head [any part, except face] (principal); E78.5 Hyperlipidemia, unspecified; R56.9 Unspecified convulsions; G47.33 Obstructive sleep apnea (adult) (pediatric); N40.0 Benign prostatic hyperplasia without lower urinary tract symptoms; Z79.899 Other long term (current) drug therapy; Z91.89 Other specified personal risk factors, not elsewhere classified; Z88.8 Allergy status to other drugs, medicaments and biological substances
CPT/HCPCS: 96372; 99283; J0696

== ENCOUNTER 2020-06-12 09:09 | Emergency (ER) | payer MEDICARE, MEDICAID ==
[~2020-06-12] VITALS: Ht 185.4 cm; Wt 99.3 kg
[2020-06-12 09:09] VITALS: BP 133/81
--- OUTSIDE RECORDS SUMMARY | 2020-06-12 09:44 | CCD ---
Author Author [facility] Organization [facility] Address Unknown Phone Unavailable Care Team Providers Care Ecclesiastical Worker Name Role Phone Khris ABERNATHY MD Unavailable [...] Unavailable Khris ABERNATHY MD Unavailable Unavailable Khris AEBRNATHY MD Unavailable Unavailable Khris ABERNATHY MD Unavailable [...] Unavailable Unavailable Khris ABERNATHY MD Unavailable Unavailable [place], Oanh Ernesto Unavailable Unavailable Karley, Oanh Ernesto Unavailable Unavailable Karley, Oanh Ernesto Unavailable Unavailable [place], Oanh Ernesto Unavailable Unavailable [place], Oanh Ernesto Unavailable Unavailable Karley, Oanh Ernesto Unavailable Unavailable Karley, Oanh Ernesto Unavailable Unavailable [place], Oanh Ernesto Unavailable Unavailable NRI, A173 Unavailable [...] Unavailable Unavailable PAN, EVELYN Unavailable Unavailable PAN, VEELYN Unavailable Unavailable PAN, EVELYN Unavailable Unavailable PAN, EVELYN Unavailable Unavailable PAN, EVELYN Unavailable Unavailable PAN, EVELYN Unavailable Unavailable PAN, EVELYN Unavailable Unavailable Rocio, L Mily FELL CUTTER Unavailable Unavailable Rocio, L Mily FELL CUTTER Unavailable Unavailable Rocio, L Mily FELL CUTTER Unavailable Unavailable Rocio, L Mily FELL CUTTER Unavailable Unavailable Rocio, L Mily FELL CUTTER Unavailable Unavailable Rocio, L Mily FELL CUTTER Unavailable Unavailable Rocio, L Mily FELL CUTTER Unavailable Unavailable Rocio, L Mily FELL CUTTER Unavailable Unavailable Rocio, L Mily FELL CUTTER Unavailable Unavailable Rcoio, L Mily FELL CUTTER Unavailable Unavailable Rocio, L Mily FELL CUTTER Unavailable Unavailable Rocio, L Mily FELL CUTTER Unavailable Unavailable Rocio, L Mily FELL CUTTER Unavailable Unavailable Rocio, L Mily FELL CUTTER Unavailable Unavailable Rocio, L Mily FELL CUTTER Unavailable Unavailable Rocio, L Mily FELL CUTTER Unavailable Unavailable Rocio, L Mily FELL CUTTER Unavailable Unavailable Rocio, L Mily FELL CUTTER Unavailable Unavailable Rocio, L Mily FELL CUTTER Unavailable Unavailable Rocio, L Mily FELL CUTTER Unavailable Unavailable Rocio, L Mily FELL CUTTER Unavailable Unavailable Rocio, L Mily FELL CUTTER Unavailable Unavailable Re-disclosure Warning The records that [...] is protected by Article 27-F of the [facility] Public Health law. If you continue you may have access to information: Regarding HIV / AIDS; Provided by facilities licensed or operated by the [facility] Office of Mental Health; or Provided by the [facility] Office for People With Developmental Disabilities. If such information is present, then the following [facility] mandated warning applies: This information has been [...] Drug allergy Haloperidol Haloperidol Unknown Active eCW1 ([facility]) Tegaderm Tegaderm Tegaderm Unknown Active eCW1 ([facility]) Lurasidone HCl Lurasidone HCl Lurasidone HCl Unknown Active eC W1 ([facility]) FEBATOL FEBATOL FEBATOL UNKNOWN Active eCW1 ([facility]) Oxybutynin Oxybutynin Oxybutynin urinary retention Active eCW1 ( [facility]) Family History Family Member Name Family Member Gender Family Member Status Date o f Status Description Data Source(s) Unknown Unknown Problem MEDENT ([facility]) Unknown Female Problem MEDENT ([facility]) Encounters Encounter Providers Location Date Indications Data Source(s ) Outpatient Attender: RAMANDEEP HILLS [facility] 05/11/2020 10:00:00 AM EST MEDENT (Tj Oshea MD) Office Visit Attender: Omayra HILLS Main office - [facility] 05/08/2020 07:45:00 AM EST MEDENT ([facility]) Office Visit Attender: Omayra HILLS Main office - [facility] 04/27/2020 10:30:00 AM EST MED[facility] ([facility]) [place] [address] [facility] [address] 03/10/2020 12:00:00 AM EST eCW1 ([facility]) Outpatient [address] [facility] [place] [address] 03/08/2020 12:00:00 AM EST eCW1 ([facility]) Outpatient Attender: RAMANDEEP HILLS [facility] 03/07/2020 09:00:00 AM EST MEDENT (Tj Oshea MD) [place] [address] [facility] [address] 02/18/2020 12:00:00 AM EDT eCW1 ([facility]) Outpatient Attender: Nathalia Pool MD Physical Therap y 02/17/2020 01:00:00 PM EDT MEDENT ([facility]) [place] [address] [facility] [address] 02/16/2020 12:00:00 AM EDT [facility]CW1 ([facility]) [place] [address] [facility] [address] 02/16/2020 12:00:00 AM EDT eCW1 ([facility]) [place] [address] [facility] [address] 02/15/2020 12:00:00 AM EDT eCW1 ([facility]) [place] [address] [facility] [address] 02/02/2020 12:00:00 AM EDT eCW1 ([facility]) Outpatient Attender: Omayra HILLS [facility] n 01/12/2020 11:30:00 AM EDT MEDENT ([facility] Mock) Outpatient Attender: Mily Skelton/[place] 11/10/2019 11:30:00 AM EDT MEDENT ([facility] Outpatient Referrer: [...] [facility] Outpatient Attender: Omayra HILLS [facility] n 06/30/2019 10:00:00 AM EST MEDENT ([facility] ELIZABETH Mock) Outpatient Attender: Ernesto Skelton/[place] 06/22/2019 09:00:00 AM EST MEDENT ([facility] [address] [place] [address] 06/18/2019 12:00:00 AM EST eCW1 ([facility]) Outpatient Referrer: [id number] NRI 06/16/2019 08:08:00 PM EST [facility] Outpatient Referrer: [id number] NRI 06/08/2019 02:42:00 PM EST [facility] Outpatient Attender: AIDEE Skelton/Tosha Curiel 06/08/2019 01:00:00 PM EST MEDENT ([facility]) Outpatient Attender: Omayra HILLS [facility] 06/08/2019 09:30:00 AM EST MEDENT ([facility]) [facility] [address] [place], [place] [id number] 06/02/2019 12:00:00 AM EST eCW1 ([facility]) [facility] [address] [place] [phone] 06/01/2019 12:00:00 AM EST eCW1 ([facility]) [facility] [address] [place] [phone] 04/30/2019 12:00:00 AM EST eCW1 ([facility]) Medications Medication Brand Name Start Date Product Form Dose Route Admi nistrative Instructions Pharmacy Instructions Status Indications Reaction Description Data Source(s) Gentamicin Sulfate (GROUP HOME) 0.001 MG/MG Topical Ointment Gentamicin Sulfate 0.1 % Gentamicin Sulfate 0.1 % 02/18/2020 12:00:00 AM EDT active Gentamicin Sulfate 0.1 % eCW1 ([facility]) Gentamicin Sulfate (GROUP HOME) 0.001 MG/MG Topical Ointment Gentamicin Sulfate 0.1 % Gentamicin Sulfate 0.1 % 02/18/2020 12:00:00 AM EDT active Gentamicin Sulfate 0.1 % eCW1 ([facility]) Gentamicin Sulfate (GROUP HOME) 0.001 MG/MG Topical Ointment Gentamicin Sulfate 0.1 % Gentamicin Sulfate 0.1 % 02/18/2020 12:00:00 AM EDT suspended Gentamicin Sulfate 0.1 % eCW1 ([facility]) Gentamicin Sulfate (GROUP HOME) 0.001 MG/MG Topical Ointment Gentamicin Sulfate 0.1 % Gentamicin Sulfate 0.1 % 02/18/2020 12:00:00 AM EDT suspended Gentamicin Sulfate 0.1 % eCW1 ([facility]) doxycycline hyclate 100 MG Oral Capsule Doxycycline Hy clate 100 MG Doxycycline Hyclate 100 MG 02/16/2020 12:00:00 AM EDT 1.0 {capsule} suspended Doxycycline Hyclate 100 MG eCW1 ([facility]) doxycycline hyclate 100 MG Oral Capsule Doxycycline Hy clate 100 MG Doxycycline Hyclate 100 MG 02/16/2020 12:00:00 AM EDT 1.0 {capsule} active Doxycycline Hyclate 100 MG eCW1 ([facility]) doxycycline hyclate 100 MG Oral Capsule Doxycycline Hy clate 100 MG Doxycycline Hyclate 100 MG 02/16/2020 12:00:00 AM EDT 1.0 {capsule} active Doxycycline Hyclate 100 MG eCW1 ([facility]) doxycycline hyclate 100 MG Oral Capsule Doxycycline Hy clate 100 MG Doxycycline Hyclate 100 MG 02/16/2020 12:00:00 AM EDT 1.0 {capsule} active Doxycycline Hyclate 100 MG eCW1 ([facility]) doxycycline hyclate 100 MG Oral Capsule Doxycycline Hy clate 100 MG Doxycycline Hyclate 100 MG 02/16/2020 12:00:00 AM EDT 1.0 {capsule} suspended Doxycycline Hyclate 100 MG eCW1 ([facility]) Triamcinolone Acetonide 1 MG/ML Topical Cream Triamcin olone Acetonide 0.1 % Triamcinolone Acetonide 0.1 % 02/02/2020 12:00:00 AM EDT 1.0 {appli cation} active Triamcinolone Acetonide 0 .1 % eCW1 ([facility]) Triamcinolone Acetonide 1 MG/ML Topical Cream Triamcin olone Acetonide 0.1 % Triamcinolone Acetonide 0.1 % 02/02/2020 12:00:00 AM EDT 1.0 {appli cation} active Triamcinolone Acetonide 0 .1 % eCW1 ([facility]) Triamcinolone Acetonide 1 MG/ML Topical Cream Triamcin olone Acetonide 0.1 % Triamcinolone Acetonide 0.1 % 02/02/2020 12:00:00 AM EDT 1.0 {appli cation} active Triamcinolone Acetonide 0 .1 % eCW1 ([facility]) Triamcinolone Acetonide 1 MG/ML Topical Cream Triamcin olone Acetonide 0.1 % Triamcinolone Acetonide 0.1 % 02/02/2020 12:00:00 AM EDT 1.0 {appli cation} active Triamcinolone Acetonide 0 .1 % eCW1 ([facility]) Triamcinolone Acetonide 1 MG/ML Topical Cream Triamcin olone Acetonide 0.1 % Triamcinolone Acetonide 0.1 % 02/02/2020 12:00:00 AM EDT 1.0 {appli cation} active Triamcinolone Acetonide 0 .1 % eCW1 ([facility]) Triamcinolone Acetonide 1 MG/ML Topical Cream Triamcin olone Acetonide 0.1 % Triamcinolone Acetonide 0.1 % 02/02/2020 12:00:00 AM EDT 1.0 {appli cation} active Triamcinolone Acetonide 0 .1 % eCW1 ([facility]) Triamcinolone Acetonide 1 MG/ML Topical Cream Triamcin olone Acetonide 0.1 % Triamcinolone Acetonide 0.1 % 02/02/2020 12:00:00 AM EDT 1.0 {appli cation} active Triamcinolone Acetonide 0 .1 % eCW1 ([facility]) Phenytoin sodium 30 MG Extended Release Oral Capsule [Dilant in] Dilantin 07/09/2019 12:00:00 AM EDT ORAL active MEDENT ([facility]) Lactulose 667 MG/ML Oral Solution Lactulose 06/08/2019 12:00:00 AM EST ORAL active MEDENT ([facility]) Insurance Providers Payer name Policy type / Coverage type Policy ID Covered libertarian ID Covered libertarian's relationship to baer Policy Baer Plan Information EMEDNY [id number] SP [id number] MEDICARE [id number] SP [id number] MEDICARE C [id number] S [id number] MEDICAID M [id number] MEDICARE [id number] SP [id number] EMEDNY [id number] SP [id number] MEDICAID [id number] SP [id number] MEDICAID [id number] SP [id number] [place] [id number] Self [id number] Medicare [place] Gov't Serv[place] Medicare Primary [id number] Self [id number] [place] [id number] Self [id number] Medicare - NGS Medicare Primary [id number] Self [id number] Medicare Part B Medicare Primary [id number] Self [id number] Medicaid Medigap Part B [id number] Self [id number] MEDICAID [id number] SP [id number] ANSI-Medicaid [id number] ANSI-Medicare Part B [id number] ANSI-Medicaid [id number] ANSI-Medicare Part B [id number] MEDICARE [id number] SP [id number] MEDICARE C [id number] S [id number] [place] [id number] Self [id number] Medicare - NGS Medicare Primary [id number] Self [id number] Medicare Part B Medicare Primary [id number] Self [id number] TODAYS OPTIONS [id number] SP [id number] [place] [id number] Self [id number] Medicare [place] Gov't Servi Medicare Primary [id number] Self [id number] MEDICARE [id number] SP [id number] A MEDICAID [id number] SP [id number] Medicare Part B Medicare Primary [id number] Self [id number] Medicare Part B Medicare Primary [id number] Self [id number] MEDICAID [id number] SP [id number] [place] [id number] Self [id number] Medicare [place] Gov't Servi Medicare Primary [id number] Self [id number] Medicare Part B Medicare Primary [id number] Self [id number] Medicare Part B Medicare Primary [id number] Self [id number] Medicare Part B Medicare Primary [id number] Self [id number] Medicare Part B Medicare Primary [id number] Self [id number] Medicare Part B Medicare Primary [id number] Self [id number] Medicare Part B Medicare Primary [id number] Self [id number] Medicare Part B Medicare Primary [id number] Self [id number] Medicare Part B Medicare Primary [id number] Self [id number] Medicare Part B Medicare Primary [id number] Self [id number] Medicare Part B Medicare Primary [id number] Self [id number] Medicare Part B Medicare Primary [id number] Self [id number] Medicare Part B Medicare Primary [id number] Self [id number] Medicare Part B Medicare Primary [id number] Self [id number] Medicare Part B Medicare Primary [id number] Self [id number] Medicare Part B Medicare Primary [id number] Self [id number] Medicare Dme Supplies Medigap Part B [id number] Self [id number] [place] Primary [id number] Self [id number] [place] [id number] Self [id number] Medicare Dme Supplies Medigap Part B [id number] Self [id number] [place] Primary [id number] Self [id number] Medicare Dme Supplies Medigap Part B [id number] Self [id number] [place] Primary [id number] Self [id number] Medicare Part B Medicare Primary [id number] Self [id number] [place] Part B Self Medicare Dme Supplies Medigap Part B Self [place] Primary Self Medicaid Medigap Part B Self Medicare Part B [place] Primary Self [place]ig[place] Part B Self [place] Gov't Servi Medicare Primary Self Medicaid Medicaid Self Medicare Medicare Primary Self [id number] [facility] [id number] A Surgeries/Procedures Procedure Description Date Indications Data Source(s) X-Ray Clavicle Complete 10/07/2019 12:00:00 AM EDT MEDENT ([facility] ) RADEX SHOULDER COMPLETE MINIMUM 2 VIEWS 10/07/2019 12: 00:00 AM EDT MEDENT ([facility] ) Office Visit, Est Pt., Level 2 FC 06/18/2019 12:00:00 AM EST eCW1 ([facility]) Office Visit, Est Pt., Level 3 PC 06/18/2019 12:00:00 AM EST eCW1 ([facility]) US URINE CAPACITY MEASURE 06/18/2019 12:00:00 AM EST eCW1 ([facility]) I & D Abscess Simple 06/08/2019 12:00:00 AM EST MEDENT ([facility], ) Results ID Date Data Source [id number] 05/09/2020 09:06:00 AM EST MEDENT ([facility] ) Name Value Range Interpretation Code Description Data Radha rce(s) Supporting Document(s) Phenytoin [Mass/volume] in Serum or Plasma 18.2 UG/ML 10.0-20.0 MEDENT ([facility] ) Lamotrigine [Mass/volume] in Serum or Plasma 7.8 ug/mL 2.0-20.0 MEDENT ([facility] ) Testing on this sample was performed by homogeneous enzyme immunoassay. Detection Limit = 1.0 Performed at: [facility] [id number] Owner Spa Director: Nomi Barrett MD, Phone: [phone] Performed at: [employer] [address] [place] [id number] Owner Spa Director: Jihan Mena [facility], Phone: [phone] Levetiracetam [Mass/volume] in Serum or Plasma 27.7 ug/mL 10.0-40.0 MEDENT ([facility] ) This test was developed and its performa nce characteristics determined by [facility]. It has not been cleared or approved by the Food and Drug Administration. ID Date Data Source [id number] 05/03/2020 01:05:00 AM EST [facility] Name Value Range Interpretation Code Description Data Radha rce(s) Supporting Document(s) SARS coronavirus 2 RNA [Presence] in Res piratory specimen by DORIS with probe detection POSITIVE [facility] This lab was ordered by [facility] a nd reported by [facility]. ID Date Data Source [id number] 04/17/2020 02:13:00 PM EST [facility] Name Value Range Interpretation Code Description Data Radha rce(s) Supporting Document(s) SARS coronavirus 2 RNA [Presence] in Res piratory specimen by DORIS with probe detection [facility] This lab was ordered by [facility] a nd reported by [facility]. ID Date Data Source [id number] 03/02/2020 09:01:00 AM EST MEDENT (Tj Oshea MD) Name Value Range Interpretation Code Description Data Radha rce(s) Supporting Document(s) Laboratory test finding (navigational concept) 1.560 uIU/ML 0 .358-3.740 Normal (applies to non-numeric results) MEDENT (Tj Oshea MD) Laboratory test finding (navigational concept) 0.48 ng/dL 0 .76-1.46 Below low normal MEDENT (Tj Oshea MD) ID Date Data Source [id number] 03/02/2020 09:01:00 AM EST MEDENT (Tj Oshea MD) Name Value Range Interpretation Code Description Data Radha rce(s) Supporting Document(s) Prostate specific Ag [Mass/volume] in Serum or Plasma 0.04 ng/mL Normal (applies to non-numeric results) MEDENT (Tj Oshea MD) The PSA assay is performed on the Datorama analyzer by [employer] sandwich chemiluminescent immunoassay and should not be compared interchangeably with other methods. It should not be used alone as a screening test or diagnosis for the presence or absence of malignant disease. Predictions of disease recurrence should not be based solely on values obtained from serial patient serum values. ID Date Data Source [id number] 03/02/2020 09:01:00 AM EST COL[facility] (Tj Oshea [...] (Tj Oshea MD) ID Date Data Source [id number] 03/02/2020 09:01:00 AM EST [facility] (Tj Oshea [...] Little GFR Left</content>
<content>ESRD GFR <15 on TRASHMAN</content>
<content></content> Laboratory test finding (navigational concept) 108 [...] (Tj Oshea MD) ID Date Data Source [id number] 03/02/2020 09:01:00 AM EST MEDENT (Tj Oshea [...] WOUND CULTURE 02/18/2020 11:22:27 AM EDT eCW1 ([facility]) Name Value Range Interpretation Code Description Data Radha rce(s) Supporting Document(s) FULL REPORT IN LAB NOTES (eCW and Medent). WOUND CULTURE eCW1 ([facility]) ID Date Data Source [id number] 01/05/2020 12:37:00 PM EDT MEDENT ([facility], ) Name Value Range Interpretation Code Description Data Radha rce(s) Supporting Document(s) Phenobarbital [Mass/volume] in Serum or Plasma 28.6 UG/ML 15.0-40.0 MEDENT ([facility], ) Phenytoin [Mass/volume] in Serum or Plasma 9.3 UG/ML 10.0-20.0 MEDENT ([facility]) Levetiracetam [Mass/volume] in Serum or Plasma 12.4 ug/mL 10.0-40.0 MEDENT ([facility]) This test was developed and its performa nce characteristics determined by [facility]. It has not been cleared or approved by the Food and Drug Administration. Ammonia [Mass/volume] in Blood 37 uMOL/L MEDENT ([facility], ) Lamotrigine [Mass/volume] in Serum or Plasma 6.3 ug/mL 2.0-20.0 MEDENT ([facility]) Testing on this sample was performed by homogeneous enzyme immunoassay. Detection Limit = 1.0 Performed at: [facility] [id number] Owner Spa Director: Nomi Barrett MD, Phone: [phone] Performed at: [facility] [address] [id number] 657 Owner Spa Director: Jihan Mena [facility], Phone: [phone] ID Date Data Source [id number] 01/05/2020 12:37:00 PM EDT MEDENT ([facility] ) Name Value Range Interpretation Code Description Data Radha rce(s) Supporting Document(s) Creatinine For GFR 0.95 mg/dL 0.70-1.30 MEDENT ([facility], ) Blood Urea Nitrogen 18 mg/dL 7-18 MEDENT (No [facility] ) Glucose, Fasting 111 mg/dL 70-100 MEDENT ([facility]) Glomerular Filtration Rate Laboratory test result MEDENT ([facility]) <content>Units are mL/min/1.73 m2</content>
<content></content>
<content>Chronic Kidney Disease Staging per NKF:</content>
<content></content>
<content>Stage I & II GFR >=60 Normal to Mildly Decreased</content>
<content>Stage III GFR 30- 59 Moderately Decreased</content>
<content>Stage IV GFR 15-29 Severely Decreased</content>
<content>Stage V GFR <15 Very Little GFR Left</content>
<content>ESRD GFR <15 on TRASHMAN</content>
<content></content> Sodium Level 142 meq/L 136-145 MEDENT ([facility], ) Chloride Level 109 meq/L 98-107 MEDENT ([facility]) Potassium Serum 4.6 meq/L 3.5-5.1 MEDENT ([facility]) Carbon Dioxide Level 29 meq/L 21-32 MEDENT ([facility]) Ast/Sgot 15 U/L 7-37 MEDENT ([facility]) Calcium Level 8.6 mg/dL 8.8-10.2 MEDENT ([facility]) Anion Gap 4 meq/L 8-16 MEDENT ([facility]) Alkaline Phosphatase 137 U/L 45-117 MEDENT ([facility]) Bilirubin,Total 0.2 mg/dL 0.2-1.0 MEDENT ([facility]) Alt/SGPT 24 U/L 12-78 MEDENT ([facility]) Albumin/Globulin Ratio 1.2 MEDENT ([facility]) Total Protein 6.9 GM/DL 6.4-8.2 MEDENT ([facility]) Albumin 3.8 GM/DL 3.2-5.2 MEDENT ([facility]) ID Date Data Source [id number] 01/05/2020 12:26:00 PM EDT MEDENT ([facility]) Name Value Range Interpretation Code Description Data Radha rce(s) Supporting Document(s) White Blood Count 4.6 10 4.0-10.0 MEDENT ([facility]) Red Blood Count 4.50 10 4.30-6.10 MEDENT ([facility]) Hemoglobin 13.4 g/dL 13.5-17.5 MEDENT ([facility]) Mean Corpuscular Hemoglobin 29.8 pg 27.0-33.0 MEDENT ([facility]) Mean Corpuscular Volume 94.0 fl 80.0-96.0 M EDENT ([facility]) Hematocrit 42.3 % 42.0-52.0 MEDENT ([facility]) Platelet Count, Automated 167 10 150-450 MEDENT ([facility]) Mean Corpuscular HGB Conc 31.7 g/dL 32.0-36.5 MEDENT ([facility]) Red Cell Distribution Width 13.3 % 11.5-14.5 MEDENT ([facility]) [place] % 8.7 % 0.0-5.0 MEDENT ([facility]) Lymph % 33.5 % 24.0-44.0 MEDENT ([facility]) Neutrophils % 51.2 % 36.0-66.0 MEDENT ([facility]) Eos % 5.8 % 0.0-3.0 MEDENT ([facility]) Baso % 0.6 % 0.0-1.0 MEDENT ([facility]) Nucleated Red Blood Cell % 0.0 % 0-0 MED ENT ([facility]) Neutrophils # 2.4 10 1.5-8.5 MEDENT ([facility]) Immature Granulocyte % 0.2 % 0-3.0 MEDENT ([facility]) Eos # 0.3 10 0.0-0.5 MEDENT ([facility]) [place] # 0.4 10 0.0-0.8 MEDENT ([facility]) Lymph # 1.6 10 1.5-5.0 MEDENT ([facility]) Baso # 0.0 10 0.0-0.2 MEDENT ([facility]) ID Date Data Source [id number] 10/14/2019 10:25:00 AM EDT MEDENT ([facility]) Name Value Range Interpretation Code Description Data Radha rce(s) Supporting Document(s) Ammonia [Mass/volume] in Blood 41 uMOL/L MEDENT ([facility]) Phenytoin [Mass/volume] in Serum or Plasma 10.3 UG/ML 10.0-20.0 MEDENT ([facility]) ID Date Data Source [id number] 09/24/2019 09:01:00 AM EDT MEDENT ([facility]) Name Value Range Interpretation Code Description Data Radha rce(s) Supporting Document(s) Phenytoin [Mass/volume] in Serum or Plasma 9.2 UG/ML 10.0-20.0 MEDENT ([facility]) Phenobarbital [Mass/volume] in Serum or Plasma 29.3 UG/ML 15.0-40.0 [facility] ([facility]) ID Date Data Source [id number] 09/24/2019 09:00:00 AM EDT [facility] ([facility]) Name Value Range Interpretation Code Description Data Radha rce(s) Supporting Document(s) Lamotrigine [Mass/volume] in Serum or Plasma 7.9 ug/mL 2.0-20.0 [facility] ([facility]) This test was developed and its performa nce characteristics determined by [employer]. It has not been cleared or approved by the Food and Drug Administration. Detection Limit = 1.0 Performed at: [address] [id number] [employer] Spa Director: Nomi Barrett MD, Phone: [phone] Levetiracetam [Mass/volume] in Serum or Plasma 14.9 ug/mL 10.0-40.0 [facility] ([facility], ) This test was developed and its performa nce characteristics determined by [facility]. It has not been cleared or approved by the Food and Drug Administration. Ammonia [Mass/volume] in Blood 39 uMOL/L [facility] ([facility], ) ID Date Data Source [id number] 08/12/2019 10:56:00 AM EDT [facility] ([facility]) Name Value Range Interpretation Code Description Data Radha rce(s) Supporting Document(s) Ammonia [Mass/volume] in Blood 31 uMOL/L [facility] ([facility], ) ID Date Data Source [id number] 07/20/2019 11:43:00 AM EDT [facility] ([facility], ) Name Value Range Interpretation Code Description Data Radha rce(s) Supporting Document(s) Ammonia [Mass/volume] in Blood 49 uMOL/L [facility] ([facility]) Phenytoin [Mass/volume] in Serum or Plasma 13.3 UG/ML 10.0-20.0 [facility] ([facility], ) ID Date Data Source [id number] 07/07/2019 10:18:00 AM EDT [facility] ([facility], ) Name Value Range Interpretation Code Description Data Radha rce(s) Supporting Document(s) Ammonia [Mass/volume] in Blood 64 uMOL/L [facility] ([facility], ) ID Date Data Source [id number] 06/11/2019 01:36:00 PM EST [facility] ([facility], ) Name Value Range Interpretation Code Description Data Radha rce(s) Supporting Document(s) Ammonia [Mass/volume] in Blood 52 uMOL/L [facility] ([facility], ) Procedure Social History Code Duration Value Status Description Data Source(s ) Smoking 03/08/2020 12:00:00 AM EST Never Smoker completed Never S moker eCW1 ([facility]) Smoking 03/08/2020 12:00:00 AM EST Never Smoker completed Never S moker eCW1 ([facility]) Smoking 02/16/2020 12:00:00 AM EDT Never Smoker completed Never S moker eCW1 ([facility]) Smoking 02/16/2020 12:00:00 AM EDT Never Smoker completed Never S moker eCW1 ([facility]) Smoking 02/16/2020 12:00:00 AM EDT Never Smoker completed Never S moker eCW1 ([facility]) Smoking 02/02/2020 12:00:00 AM EDT Never Smoker completed Never S moker eCW1 ([facility]) Smoking 02/02/2020 12:00:00 AM EDT Never Smoker completed Never S moker eCW1 ([facility]) 11/10/2019 12:00:00 AM EDT Denies Smoking completed Afshinie berenice Smoking [facility] ([facility], ) Vital Signs ID Date Data Source UNK Name Value Range Interpretation Code Description Data Source(s) Oxygen saturation in Arterial blood by Pulse oximetry 96 % 96 % [facility] ([facility], ) Body weight 228.38 [lb_av] 228.38 [lb_av] MEDEN T ([facility], ) Respiratory rate 16 /min 16 /min [facility] ( [facility]) Heart rate 80 /min 80 /min [facility] ([facility]) Diastolic blood pressure 72 mm[Hg] 72 mm[Hg] [facility] ([facility]) VS as reported by JRN nurse Systolic blood pressure 132 mm[Hg] 132 mm[Hg] M EDENT ([facility]) VS as reported by JRN nurse Diastolic blood pressure 74 mm[Hg] 74 mm[Hg] eCW1 ([facility]) Systolic blood pressure 100 mm[Hg] 100 mm[Hg] e CW1 ([facility]) Body mass index (BMI) [Ratio] 30.2 kg/m2 30.2 k g/m2 W1 ([facility]) Body height 73 [in_i] 73 [in_i] eCW1 ([facility]) Body weight [lb_av] eCW1 ([facility]) Diastolic blood pressure 76 mm[Hg] 76 mm[Hg] eCW1 ([facility]) Systolic blood pressure 112 mm[Hg] 112 mm[Hg] e CW1 ([facility]) Body mass index (BMI) [Ratio] 30.2 kg/m2 30.2 k g/m2 eCW1 ([facility]) Body height 73 [in_i] 73 [in_i] eCW1 ([facility]) Body weight [lb_av] eCW1 ([facility]) Diastolic blood pressure 74 mm[Hg] 74 mm[Hg] eCW1 ([facility]) Systolic blood pressure 118 mm[Hg] 118 mm[Hg] e CW1 ([facility]) Body mass index (BMI) [Ratio] 30.2 kg/m2 30.2 k g/m2 eCW1 ([facility]) Body height 73 [in_i] 73 [in_i] eCW1 ([facility]) Body weight [lb_av] eCW1 ([facility]) Body weight 104.[address] [facility] ([facility]) Body mass index (BMI) [Ratio] 32.1 kg/m2 32.1 k g/m2 [facility] ([facility]) Body weight 230.00 [lb_av] 230.00 [lb_av] MEDEN T ([facility]) aide states Body height 71 [in_i] 71 [in_i] [facility] ([facility]) 5'11" Body temperature 98.3 [degF] 98.3 [degF] [facility] ([facility]) Oxygen saturation in Arterial blood by Pulse oximetry 92 % 92 % [facility] ([facility]) Heart rate 85 /min 85 /min [facility] ([facility]) Diastolic blood pressure 70 mm[Hg] 70 mm[Hg] [facility] ([facility]) Systolic blood pressure 110 mm[Hg] 110 mm[Hg] [facility] ([facility]) Respiratory rate 16 /min 16 /min [facility] ( [facility]) Heart rate 76 /min 76 /min [facility] ([facility]) Diastolic blood pressure 70 mm[Hg] 70 mm[Hg] [facility] ([facility]) Systolic blood pressure 110 mm[Hg] 110 mm[Hg] [facility] ([facility]) Body weight 99.[address] [facility] ([facility]) Body mass index (BMI) [Ratio] 30.7 kg/m2 30.7 k g/m2 [facility] ([facility]) Body weight 220.00 [lb_av] 220.00 [lb_av] MEDEN T ([facility]) Body height 71 [in_i] 71 [in_i] [facility] ([facility] ) 5'11" Diastolic blood pressure 70 mm[Hg] 70 mm[Hg] [facility] ([facility], ) Systolic blood pressure 110 mm[Hg] 110 mm[Hg] M EDENT ([facility], ) Diastolic blood pressure 72 mm[Hg] 72 mm[Hg] eCW1 ([facility]) Systolic blood pressure mm[Hg] e CW1 ([facility]) Body temperature 97.2 [degF] 97.2 [degF] eCW1 ( [facility]) Respiratory rate 18 /min 18 /min eCW1 ([facility]) Heart rate 86 /min 86 /min eCW1 ([facility]) Body mass index (BMI) [Ratio] 29.02 kg/m2 29.02 kg/m2 eCW1 ([facility]) Body height 73 [in_us] 73 [in_us] eCW1 ([facility]) Body weight Measured 220 [lb_av] 220 [lb_av] eC W1 ([facility]) Respiratory rate 16 /min 16 /min MED[facility] ( [facility], ) Heart rate 76 /min 76 /min [facility] ([facility], ) Diastolic blood pressure 80 mm[Hg] 80 mm[Hg] [facility] ([facility], ) Systolic blood pressure 112 mm[Hg] 112 mm[Hg] [facility] Patient Treatment Plan of Care Planned Activity Planned Date Details Description Data Source (s) Gentamicin Sulfate (GROUP HOME) 0.001 MG/MG Topical Ointment 02/18/2020 12:00:00 AM EDT eCW1 ([facility]) Gentamicin Sulfate (GROUP HOME) 0.001 MG/MG Topical Ointment 02/18/2020 12:00:00 AM EDT eCW1 ([facility]) doxycycline hyclate 100 MG Oral Capsule 02/16/2020 12:00:00 AM EDT eCW1 ([facility]) doxycycline hyclate 100 MG Oral Capsule 02/16/2020 12:00:00 AM EDT eCW1 ([facility]) doxycycline hyclate 100 MG Oral Capsule 02/16/2020 12:00:00 AM EDT eCW1 ([facility]) Triamcinolone Acetonide 1 MG/ML Topical Cream 02/02/2020 12:00:00 A M EDT eCW1 ([facility]) Triamcinolone Acetonide 1 MG/ML Topical Cream 02/02/2020 12:00:00 A M EDT eCW1 ([facility]) Triamcinolone Acetonide 1 MG/ML Topical Cream 02/02/2020 12:00:00 A M EDT eCW1 ([facility]) Triamcinolone Acetonide 1 MG/ML Topical Cream 02/02/2020 12:00:00 A M EDT eCW1 ([facility])
== END 2020-06-12 09:52 | disposition home or self-care (01) ==
LOC: M ED 09:09
DX: Z09 Encounter for follow-up examination after completed treatment for conditions other than malignant neoplasm (principal); L03.811 Cellulitis of head [any part, except face]; G40.909 Epilepsy, unspecified, not intractable, without status epilepticus; Z86.73 Personal history of transient ischemic attack (TIA), and cerebral infarction without residual deficits; N40.0 Benign prostatic hyperplasia without lower urinary tract symptoms; E03.9 Hypothyroidism, unspecified; Z86.16 Personal history of COVID-19; Z79.899 Other long term (current) drug therapy; Z91.89 Other specified personal risk factors, not elsewhere classified; Z88.8 Allergy status to other drugs, medicaments and biological substances

== ENCOUNTER → 2020-09-12 | Outpatient (REF) | payer MEDICARE, MEDICAID ==
[~2020-09-12] MED LIST changes: +BACTDSTA PO; -CALC500T44 PO; +MILK400S12 PO; -MILKSUS21 PO; +OYST500T92 PO; -SULF1TAB93 PO
[2020-09-12 11:54] LABS: APPEARANCE, URINE CLOUDY (CLEAR); BACTERIA, URINE AUTO NEGATIVE (NEGATIVE); BILIRUBIN, URINE AUTO NEGATIVE (NEGATIVE); BLOOD, URINE BLOOD 1+ (NEGATIVE); COLOR, URINE YELLOW (YELLOW); GLUCOSE, URINE (UA) AUTO NEGATIVE (NEGATIVE); KETONE, URINE AUTO NEGATIVE (NEGATIVE); LEUKOCYTE ESTERASE, URINE AUTO 3+ (NEGATIVE); MUCUS, URINE SMALL (NEGATIVE); NITRITE, URINE AUTO NEGATIVE (NEGATIVE); PROTEIN, URINE AUTO 1+ mg/dL (NEGATIVE); RBC, URINE AUTO 32 /HPF (0-3); SPECIFIC GRAVITY URINE AUTO 1.019 (1.002-1.035); SQUAMOUS EPITHELIAL CELL UR AU 0 /HPF (0-6); UROBILINOGEN, URINE AUTO 0.2 mg/dL (0.0-2.0); WBC, URINE AUTO TNTC /HPF (0-3)
== END ==
LOC: M LAB REF 11:39
PROVIDERS: ATTEND Physician Assistant Medical
DX: R30.0 Dysuria (principal)

== ENCOUNTER → 2020-09-27 | Outpatient (CLI) | payer MEDICARE, MEDICAID ==
[2020-09-27 11:02] LABS: PHENOBARBITAL LEVEL 33.4 UG/ML (15.0-40.0); PHENYTOIN (DILANTIN) 19.7 UG/ML (10.0-20.0)
[2020-09-29 13:08] LABS: LAMOTRIGINE (LAMICTAL) 6.5 ug/mL (2.0-20.0); LEVETIRACETAM (KEPPRA) 21.1 ug/mL (10.0-40.0)
== END ==
LOC: M LAB 09:50
PROVIDERS: ATTEND Physician Assistant Medical
DX: R56.9 Unspecified convulsions (principal); Z51.81 Encounter for therapeutic drug level monitoring; Z79.899 Other long term (current) drug therapy

== ENCOUNTER → 2020-09-27 | Outpatient (CLI) | payer MEDICARE, MEDICAID ==
[2020-09-27 10:36] LABS: BASO % 0.8 % (0.0-1.0); EOS # 0.3 10^3/uL (0.0-0.5); EOS % 6.5 % (0.0-3.0); HEMOGLOBIN 12.7 g/dl (13.5-17.5); LYMPH # 1.3 10^3/uL (1.5-5.0); MEAN CORPUSCULAR HEMOGLOBIN 29.1 pg (27.0-33.0); MEAN CORPUSCULAR HGB CONC 31.8 g/dl (32.0-36.5); MEAN CORPUSCULAR VOLUME 91.7 fl (80.0-96.0); MONO # 0.5 10^3/uL (0.0-0.8); MONO % 9.3 % (2.0-8.0); NEUTROPHILS # 2.8 10^3/uL (1.5-8.5); NEUTROPHILS % 56.4 % (36.0-66.0); PLATELET COUNT, AUTOMATED 168 10^3/uL (150-450); RED BLOOD COUNT 4.36 10^6/uL (4.30-6.10); WHITE BLOOD COUNT 4.9 10^3/uL (4.0-10.0)
[2020-09-27 11:10] LABS: ALBUMIN 3.9 GM/DL (3.2-5.2); ALT/SGPT 21 U/L (12-78); BILIRUBIN,TOTAL 0.3 MG/DL (0.2-1.0); BLOOD UREA NITROGEN 14 MG/DL (7-18); CARBON DIOXIDE LEVEL 33 MEQ/L (21-32); CHLORIDE LEVEL 104 MEQ/L (98-107); CHOLESTEROL LEVEL 156 MG/DL (<200); CHOLESTEROL RISK RATIO 2.785 (<5); CREATININE FOR GFR 0.81 MG/DL (0.70-1.30); FREE T4 0.48 NG/DL (0.76-1.46); GLOMERULAR FILTRATION RATE > 60.0 (>49); GLUCOSE, FASTING 106 MG/DL (70-100); HDL CHOLESTEROL 56 MG/DL (>40); LDL CHOLESTEROL 78 MG/DL (<100); NON-HDL-C 100 MG/DL; POTASSIUM SERUM 4.5 MEQ/L (3.5-5.1); SODIUM LEVEL 139 MEQ/L (136-145); TOTAL PROTEIN 6.9 GM/DL (6.4-8.2); TRIGLYCERIDES LEVEL 109 MG/DL (<150)
[2020-09-27 11:11] LABS: HEMOGLOBIN A1c 5.7 %
== END ==
LOC: M LAB 09:53
PROVIDERS: ATTEND Physician Assistant Medical
DX: R53.83 Other fatigue (principal); I10 Essential (primary) hypertension; E78.2 Mixed hyperlipidemia; R73.03 Prediabetes; R56.9 Unspecified convulsions; Z51.81 Encounter for therapeutic drug level monitoring; Z79.899 Other long term (current) drug therapy

== ENCOUNTER → 2020-11-22 | Outpatient (CLI) | payer MEDICARE, MEDICAID ==
[2020-11-22 08:16] LABS: BASO % 0.6 % (0.0-1.0); EOS # 0.3 10^3/uL (0.0-0.5); EOS % 7.3 % (0.0-3.0); HEMATOCRIT 39.2 % (42.0-52.0); HEMOGLOBIN 12.6 g/dl (13.5-17.5); LYMPH # 1.7 10^3/uL (1.5-5.0); LYMPH % 37.4 % (24.0-44.0); MEAN CORPUSCULAR HEMOGLOBIN 29.8 pg (27.0-33.0); MEAN CORPUSCULAR HGB CONC 32.1 g/dl (32.0-36.5); MEAN CORPUSCULAR VOLUME 92.7 fl (80.0-96.0); MONO # 0.5 10^3/uL (0.0-0.8); MONO % 10.8 % (2.0-8.0); NEUTROPHILS % 43.5 % (36.0-66.0); PLATELET COUNT, AUTOMATED 176 10^3/uL (150-450); RED BLOOD COUNT 4.23 10^6/uL (4.30-6.10); WHITE BLOOD COUNT 4.7 10^3/uL (4.0-10.0)
[2020-11-22 08:42] LABS: ALT/SGPT 29 U/L (12-78); BILIRUBIN,TOTAL 0.2 MG/DL (0.2-1.0); BLOOD UREA NITROGEN 15 MG/DL (7-18); CALCIUM LEVEL 8.8 MG/DL (8.8-10.2); CARBON DIOXIDE LEVEL 33 MEQ/L (21-32); CHLORIDE LEVEL 108 MEQ/L (98-107); CREATININE FOR GFR 0.94 MG/DL (0.70-1.30); GLOMERULAR FILTRATION RATE > 60.0 (>49); GLUCOSE, FASTING 100 MG/DL (70-100); PHENOBARBITAL LEVEL 32.8 UG/ML (15.0-40.0); PHENYTOIN (DILANTIN) 18.3 UG/ML (10.0-20.0); POTASSIUM SERUM 4.3 MEQ/L (3.5-5.1); SODIUM LEVEL 143 MEQ/L (136-145); TOTAL PROTEIN 6.9 GM/DL (6.4-8.2)
== END ==
LOC: M LAB 07:35
PROVIDERS: ATTEND Physician Assistant Medical
DX: G40.89 Other seizures (principal)

== ENCOUNTER 2020-12-28 12:18 | Emergency (ER) | payer MEDICARE, MEDICAID ==
[~2020-12-28] VITALS: Ht 185.4 cm; Wt 101.8 kg
[~2020-12-28 12:18] MED LIST changes: -FLON1SPR
[2020-12-28] MEDS ORDERED: PHEN100C PO (12:45)
[2020-12-28] MEDS ORDERED: LEVE500T5 PO (12:45)
[2020-12-28] MEDS ORDERED: LINZ290C PO (12:45)
--- NOTE | 2020-12-28 13:19 | REPVR ---
PROCEDURE INFORMATION: Exam: CT Head Without Contrast Exam date and time: 12/28/2020 12:47 PM Age: 65 years old Clinical indication: Altered mental status/memory loss TECHNIQUE: Imaging protocol: Computed tomography of the head without contrast. Axial and coronal reformatted images were created and reviewed. Radiation optimization: All CT scans at this facility use at least one of these dose optimization techniques: automated exposure control; mA and/or kV adjustment per patient size (includes targeted exams where dose is matched to clinical indication); or iterative reconstruction. COMPARISON: CT Head without contrast 05/02/2020 8:40 PM FINDINGS: Brain: Unchanged right transfrontal ventriculostomy catheter. Unchanged bilateral frontal encephalomalacia. Unchanged left parietal cystic lesion. Patchy and confluent areas of hypoattenuation in the periventricular and subcortical white matter, consistent with chronic small vessel ischemic disease. No CT evidence of acute intracranial hemorrhage or acute territorial infarction. No significant mass effect or midline shift. Basal cisterns patent. Cerebral ventricles: Unchanged in size and configuration. Paranasal sinuses: Polypoid ethmoid and maxillary sinus mucosal thickening. No fluid levels. Mastoid air cells: Grossly unremarkable. Bones/joints: No acute osseous abnormality. Old calvarial postoperative changes. Chronic deformity of the nasal bones and left anterior and lateral maxillary sinus fay. Soft tissues: Grossly unremarkable. IMPRESSION: 1. No CT evidence of acute intracranial pathology. 2. Additional findings, as above. Electronically signed by: Frank Alegria On 12/28/2020 13:19:00 PM
[2020-12-28 13:25] LABS: VENOUS BASE EXCESS -2.1 (-2.0-2.0); VENOUS HCO3 24.3 MEQ/L (23.0-27.0); VENOUS O2 SATURATION 59.4 % (60.0-80.0); VENOUS PARTIAL PRESSURE O2 32.8 mmHg (30.0-50.0); VENOUS PH 7.322 UNITS (7.330-7.430); VENOUS STANDARD HCO3 21.9 MEQ/L; VENOUS TOTAL CO2 25.8 MEQ/L (24.0-28.0)
--- NOTE | 2020-12-28 13:27 | REP ---
INDICATION: Altered Mental Status. COMPARISON: Comparison portable chest x-ray April 17, 2020. TECHNIQUE: Portable upright AP chest radiograph. FINDINGS: Right hemidiaphragm remains elevated. A right-sided ventriculoperitoneal shunt catheter is seen. EKG electrodes are noted. Mild cardiomegaly is observed. There is platelike atelectasis or fibrosis in the left base unchanged. Pulmonary vasculature is cephalized. No focal infiltrate is seen. IMPRESSION: Cardiomegaly. Vascular cephalization. No acute infiltrate seen. <Electronically signed by Joaquin Taylor > 12/28/20 [id number]
[2020-12-28 13:34] LABS: BASO % 0.3 % (0.0-1.0); EOS # 0.2 10^3/uL (0.0-0.5); EOS % 2.1 % (0.0-3.0); HEMATOCRIT 39.4 % (42.0-52.0); HEMOGLOBIN 12.8 g/dl (13.5-17.5); LYMPH # 0.4 10^3/uL (1.5-5.0); LYMPH % 5.1 % (24.0-44.0); MEAN CORPUSCULAR HEMOGLOBIN 29.6 pg (27.0-33.0); MEAN CORPUSCULAR HGB CONC 32.5 g/dl (32.0-36.5); MEAN CORPUSCULAR VOLUME 91.2 fl (80.0-96.0); MONO # 0.8 10^3/uL (0.0-0.8); MONO % 9.8 % (2.0-8.0); NEUTROPHILS # 6.3 10^3/uL (1.5-8.5); NEUTROPHILS % 82.4 % (36.0-66.0); PLATELET COUNT, AUTOMATED 152 10^3/uL (150-450); RED BLOOD COUNT 4.32 10^6/uL (4.30-6.10); WHITE BLOOD COUNT 7.7 10^3/uL (4.0-10.0)
[2020-12-28 14:05] LABS: ALBUMIN 3.8 GM/DL (3.2-5.2); ALT/SGPT 22 U/L (12-78); BILIRUBIN,DIRECT < 0.1 MG/DL (0.0-0.2); BILIRUBIN,TOTAL 0.2 MG/DL (0.2-1.0); BLOOD UREA NITROGEN 22 MG/DL (7-18); CALCIUM LEVEL 8.5 MG/DL (8.8-10.2); CARBON DIOXIDE LEVEL 31 MEQ/L (21-32); CHLORIDE LEVEL 106 MEQ/L (98-107); CK-MB VALUE MASS < 1.0 NG/ML (<3.6); CPK CREATINE PHOSPHOKINASE 68 U/L (39-308); CREATININE FOR GFR 1.01 MG/DL (0.70-1.30); GLOMERULAR FILTRATION RATE > 60.0 (>49); GLUCOSE, FASTING 128 MG/DL (70-100); MB/CK RELATIVE INDEX 1.47 (< OR =4); NT-PRO BNP 41 PG/ML (<125); POTASSIUM SERUM 4.7 MEQ/L (3.5-5.1); SODIUM LEVEL 139 MEQ/L (136-145); TOTAL PROTEIN 6.9 GM/DL (6.4-8.2); TROPONIN I < 0.02 NG/ML (< 0.10)
[2020-12-28 14:11] LABS: OSMOLALITY SERUM 296 MOSM/KG (280-301)
[2020-12-28] MEDS ORDERED: ACETAMINOPHEN 650 MG SUPP PR ONE (15:30)
--- NOTE | 2020-12-28 16:08 | REP ---
INDICATION: low sats. COMPARISON: 05/15/2018. TECHNIQUE: CT chest performed without the use of intravenous contrast. Sagittal and coronal reconstruction images are performed. Study is limited by patient motion. FINDINGS: Lungs: There is a calcified granuloma in the right upper lobe. There are mild bilateral fibro atelectatic changes, more so in the lung bases. Mediastinum: No gross adenopathy. Shani: No gross adenopathy. Axilla: No gross adenopathy. Pleura: No effusion. Heart: Not enlarged. Thoracic aorta: No aneurysm. Visualized osseous structures: There are mild degenerative changes of the spine. There is a stable compression deformity of a lower thoracic vertebral body. IMPRESSION: No acute findings. <Electronically signed by Abdelrahman Zarate > 12/28/20 [id number]
--- NOTE | 2020-12-28 16:18 | REP ---
INDICATION: fever COMPARISON: 05/15/2018. TECHNIQUE: CT Scan of the abdomen and pelvis was performed without intravenous contrast. Sagittal and coronal reconstruction images performed. FINDINGS: Liver: Hypodensity at the right dome of the liver laterally measuring 1 cm in diameter probably represents a small cyst. Gallbladder: Unremarkable. Spleen: Grossly unremarkable. Adrenals: Normal. Pancreas: Grossly unremarkable.. Kidneys: No hydronephrosis or nephrolithiasis. Ureters demonstrate no dilatation or calculus. Small and large bowel: Grossly unremarkable. Free fluid: None. Abdominal aorta: No aneurysm. Adenopathy: None. Appendix: Not inflamed. Osseous structures: Unremarkable. Pelvis: No mass. No bladder calculus seen. Urinary bladder is collapsed and not well evaluated. The distal end of a [employer] shunt is again seen coiled along the lateral aspect of the right lobe of the liver unchanged since the prior exam. IMPRESSION: No acute abnormalities detected in the abdomen or pelvis. <Electronically signed by Abdelrahman Zarate > 12/28/20 [id number]
[2020-12-28] MEDS ORDERED: MUPI2OI TOP (16:45)
[2020-12-28] MEDS ORDERED: VITA500045 PO (16:45)
[2020-12-28] MEDS ORDERED: SENN-80 PO (16:45)
[2020-12-28] MEDS ORDERED: LAMO200T3 PO (16:45)
--- NOTE | 2020-12-28 16:45 | REP ---
INDICATION: altered. COMPARISON: 05/02/2020. TECHNIQUE: AP and lateral skull, AP and lateral chest, AP and lateral abdomen to evaluate [employer]ING [employer]IST shunt. FINDINGS: Right ventriculostomy catheter is grossly unchanged in position. Shunt catheter tubing again traverses inferiorly in the right head and neck soft tissues, in the right chest wall, entering the right upper quadrant of the abdomen. I see no radiographic evidence of discontinuity or kinking of the shunt tubing. Positioning is essentially unchanged. The distal tip is in the right upper quadrant of the abdomen. There are stable postoperative changes of the calvarium. No acute infiltrate is seen in either lung. The heart and mediastinum are unchanged. There is a nonobstructive bowel gas pattern. IMPRESSION: Stable exam. Shunt catheter tubing appears intact. <Electronically signed by Abdelrahman Zarate > 12/28/20 [id number]
[2020-12-28] MEDS ORDERED: HOME MED LIST COMPLETE! XX SCH (16:50)
[2020-12-28 17:30] VITALS: BP 129/63
--- NOTE | 2020-12-29 11:36 | ECGEPIP ---
[facility] - ED Test Date: 2020-12-28 Pat Name: PREM ALMARAZ Department: Room: - Gender: Male Legal Document Assistant: winifred : [id number] Requested By: Tami Nanec Order Number: [id number] Reading MD: Tami Nance Measurements Intervals [place] Rate: 100 P: 34 SD: 148 QRS: 25 QRSD: 94 T: 60 QT: 504 QTc: 650 Interpretive Statements Normal sinus rhythm baseline artifact limits interpretation NSTTW abnormalities Low voltage QRS Incomplete right bundle branch block Prolonged QT, clinical correlation Electronically Signed on 12-29-2020 11:36:49 EDT by Tami Nance
== END 2020-12-28 17:51 | disposition other institution (70) ==
LOC: EDBD 12:18 → M ED 12:18
DX: R41.82 Altered mental status, unspecified (principal); R94.31 Abnormal electrocardiogram [ECG] [EKG]; I45.10 Unspecified right bundle-branch block; G40.909 Epilepsy, unspecified, not intractable, without status epilepticus; J44.9 Chronic obstructive pulmonary disease, unspecified; F79 Unspecified intellectual disabilities; Z79.51 Long term (current) use of inhaled steroids; Z79.899 Other long term (current) drug therapy; Z91.048 Other nonmedicinal substance allergy status; Z88.8 Allergy status to other drugs, medicaments and biological substances; Z98.2 Presence of cerebrospinal fluid drainage device

== ENCOUNTER → 2021-01-06 | Outpatient (CLI) | payer MEDICARE, MEDICAID ==
[~2021-01-06] MED LIST changes: +LINZ290C PO; +PHEN100C PO; +SENN-80 PO; +VITA500045 PO
== END ==
LOC: M LAB 12:59
PROVIDERS: ATTEND Physician Assistant Medical
DX: E72.20 Disorder of urea cycle metabolism, unspecified (principal)

== ENCOUNTER 2021-01-08 07:58 | Emergency (ER) | payer MEDICARE, MEDICAID ==
[~2021-01-08] VITALS: Ht 185.4 cm; Wt 104.5 kg
[2021-01-08 09:32] VITALS: BP 128/67
== END 2021-01-08 11:57 | disposition home or self-care (01) ==
LOC: M ED 07:58
DX: R04.0 Epistaxis (principal); Z88.8 Allergy status to other drugs, medicaments and biological substances; Z91.048 Other nonmedicinal substance allergy status

== ENCOUNTER → 2021-01-17 | Outpatient (REF) | payer MEDICARE, MEDICAID ==
[2021-01-17 12:02] LABS: APPEARANCE, URINE CLOUDY (CLEAR); BACTERIA, URINE AUTO NEGATIVE (NEGATIVE); BILIRUBIN, URINE AUTO NEGATIVE (NEGATIVE); BLOOD, URINE BLOOD NEGATIVE (NEGATIVE); COLOR, URINE YELLOW (YELLOW); GLUCOSE, URINE (UA) AUTO NEGATIVE (NEGATIVE); KETONE, URINE AUTO NEGATIVE (NEGATIVE); LEUKOCYTE ESTERASE, URINE AUTO 2+ (NEGATIVE); NITRITE, URINE AUTO POSITIVE (NEGATIVE); PROTEIN, URINE AUTO 1+ mg/dL (NEGATIVE); RBC, URINE AUTO 1 /HPF (0-3); SPECIFIC GRAVITY URINE AUTO 1.016 (1.002-1.035); SQUAMOUS EPITHELIAL CELL UR AU 0 /HPF (0-6); UROBILINOGEN, URINE AUTO 0.2 mg/dL (0.0-2.0); WBC, URINE AUTO 59 /HPF (0-3)
== END ==
LOC: M LAB REF 11:46
PROVIDERS: ATTEND Physician Assistant Medical
DX: R30.0 Dysuria (principal)

== ENCOUNTER → 2021-02-07 | Outpatient (CLI) | payer MEDICARE, MEDICAID ==
[~2021-02-07] MED LIST changes: +CLOB10TA PO; +HYDR50TA70 PO
--- NOTE | 2021-02-07 18:16 | DEXAMM ---
INDICATION: MONITOR OSTEOPENIA. COMPARISON: 10/14/2019 as well as other prior exams. TECHNIQUE: Bone density was measured using dual-energy x-ray absorptiometry (DEXA). FINDINGS: AP SPINE L1-L4 BMD 0.887 g/cm2 Young Adult T-Score -2.4 Age Matched Z-Score -2.4. LT FEMUR, TOTAL BMD 0.893 g/cm2 Young Adult T-Score -0.9 Age Matched Z-Score -0.9. LT NECK BMD 0.872 g/cm2 Young Adult T-Score -1.2 Age Matched Z-Score -0.5. RT FEMUR, TOTAL BMD 0.891 g/cm2 Young Adult T-Score -0.9 Age Matched Z-Score -0.9. RT NECK BMD 0.823 g/cm2 Young Adult T-Score -1.5 Age Matched Z-Score -0.9. IMPRESSION: There is low bone density of the spine. There is low bone density of the left hip. There is low bone density of the right hip. The density of the spine has decreased 12.5% since the initial exam on 03/04/2005. The density of the spine increased 2.5% since most recent exam on 10/14/2019. The density of the left hip has decreased 7.5% since initial exam on 03/04/2005. The density of the left hip has increased 3.4% since most recent exam on 10/14/2019. The density of the right hip has decreased 4.5% since the initial exam on 03/04/2005. The density of the right hip has increased 0.6% since the most recent exam on 10/14/2019. FOLLOW-UP: Recommendation for the next bone density exam: 2 years. <Electronically signed by Abdelrahman Zarate > 02/07/21 1708
== END ==
LOC: M WHC 11:25
PROVIDERS: ATTEND Physician Assistant Medical
DX: M85.80 Other specified disorders of bone density and structure, unspecified site (principal)

== ENCOUNTER → 2021-02-26 | Outpatient (CLI) | payer MEDICARE, MEDICAID ==
[~2021-02-26] MED LIST changes: -CLOB10TA PO; -HYDR50TA70 PO
[2021-02-26 11:54] LABS: BASO % 0.7 % (0.0-1.0); EOS # 0.3 10^3/uL (0.0-0.5); EOS % 7.9 % (0.0-3.0); HEMATOCRIT 39.1 % (42.0-52.0); HEMOGLOBIN 12.4 g/dl (13.5-17.5); LYMPH # 1.6 10^3/uL (1.5-5.0); LYMPH % 36.9 % (24.0-44.0); MEAN CORPUSCULAR HEMOGLOBIN 29.7 pg (27.0-33.0); MEAN CORPUSCULAR HGB CONC 31.7 g/dl (32.0-36.5); MEAN CORPUSCULAR VOLUME 93.5 fl (80.0-96.0); MONO # 0.4 10^3/uL (0.0-0.8); MONO % 8.9 % (2.0-8.0); NEUTROPHILS # 1.9 10^3/uL (1.5-8.5); NEUTROPHILS % 45.4 % (36.0-66.0); PLATELET COUNT, AUTOMATED 165 10^3/uL (150-450); RED BLOOD COUNT 4.18 10^6/uL (4.30-6.10); WHITE BLOOD COUNT 4.3 10^3/uL (4.0-10.0)
[2021-02-26 12:29] LABS: ALBUMIN 3.8 GM/DL (3.2-5.2); ALT/SGPT 20 U/L (12-78); BILIRUBIN,TOTAL 0.2 MG/DL (0.2-1.0); BLOOD UREA NITROGEN 14 MG/DL (7-18); CALCIUM LEVEL 9.5 MG/DL (8.8-10.2); CARBON DIOXIDE LEVEL 31 MEQ/L (21-32); CHLORIDE LEVEL 106 MEQ/L (98-107); CHOLESTEROL LEVEL 174 MG/DL (<200); CHOLESTEROL RISK RATIO 3.411 (<5); CREATININE FOR GFR 0.94 MG/DL (0.70-1.30); FREE T4 0.47 NG/DL (0.76-1.46); GLOMERULAR FILTRATION RATE > 60.0 (>49); GLUCOSE, FASTING 115 MG/DL (70-100); HDL CHOLESTEROL 51 MG/DL (>40); LDL CHOLESTEROL 92 MG/DL (<100); NON-HDL-C 123 MG/DL; PROSTATIC SPECIFIC AG MONITOR 0.01 NG/ML (< 4.00); SODIUM LEVEL 142 MEQ/L (136-145); TRIGLYCERIDES LEVEL 154 MG/DL (<150)
== END ==
LOC: M LAB 10:20
PROVIDERS: ATTEND Physician Assistant Medical
DX: Z12.5 Encounter for screening for malignant neoplasm of prostate (principal); E78.2 Mixed hyperlipidemia; I10 Essential (primary) hypertension; R53.83 Other fatigue; N40.0 Benign prostatic hyperplasia without lower urinary tract symptoms

== ENCOUNTER → 2021-02-26 | Outpatient (CLI) | payer MEDICARE, MEDICAID ==
[2021-02-26 12:31] LABS: BLOOD UREA NITROGEN 15 MG/DL (7-18); CALCIUM LEVEL 9.6 MG/DL (8.8-10.2); CARBON DIOXIDE LEVEL 34 MEQ/L (21-32); CHLORIDE LEVEL 106 MEQ/L (98-107); GLOMERULAR FILTRATION RATE > 60.0 (>49); GLUCOSE, FASTING 113 MG/DL (70-100); SODIUM LEVEL 142 MEQ/L (136-145)
== END ==
LOC: M LAB 10:23
PROVIDERS: ATTEND Urology
DX: N40.0 Benign prostatic hyperplasia without lower urinary tract symptoms (principal)
CPT/HCPCS: 36415; 80048; G0103

== ENCOUNTER 2021-03-14 08:11 | Inpatient (IN) | payer MEDICARE, MEDICAID ==
[~2021-03-14] VITALS: Ht 185.4 cm; Wt 104.0 kg
[2021-03-14 08:47] LABS: VENOUS BASE EXCESS 3.1 (-2.0-2.0); VENOUS HCO3 31.6 MEQ/L (23.0-27.0); VENOUS PARTIAL PRESSURE CO2 68.5 mmHg (38.0-50.0); VENOUS PARTIAL PRESSURE O2 42.3 mmHg (30.0-50.0); VENOUS PH 7.282 UNITS (7.330-7.430); VENOUS STANDARD HCO3 26.7 MEQ/L; VENOUS TOTAL CO2 33.7 MEQ/L (24.0-28.0)
[2021-03-14 08:50] LABS: BASO % 0.5 % (0.0-1.0); EOS # 0.3 10^3/uL (0.0-0.5); EOS % 6.6 % (0.0-3.0); HEMATOCRIT 36.9 % (42.0-52.0); HEMOGLOBIN 11.8 g/dl (13.5-17.5); LYMPH # 1.4 10^3/uL (1.5-5.0); LYMPH % 32.8 % (24.0-44.0); MEAN CORPUSCULAR HEMOGLOBIN 29.9 pg (27.0-33.0); MEAN CORPUSCULAR VOLUME 93.7 fl (80.0-96.0); MONO # 0.4 10^3/uL (0.0-0.8); MONO % 9.6 % (2.0-8.0); NEUTROPHILS # 2.2 10^3/uL (1.5-8.5); NEUTROPHILS % 50.5 % (36.0-66.0); PLATELET COUNT, AUTOMATED 151 10^3/uL (150-450); RED BLOOD COUNT 3.94 10^6/uL (4.30-6.10); WHITE BLOOD COUNT 4.3 10^3/uL (4.0-10.0)
--- OUTSIDE RECORDS SUMMARY | 2021-03-14 09:04 | CCD | Continuity of Care Document ---
Author Author Hemanth BONDS PA Organization Unknown Address [address] [place] [address] [address] [place] [address] Phone [phone] Care Team Providers Care Plug Wirer Name Role Phone Ruy Jones [employer] [phone] Ruy Jones [employer] [phone] Social History Type Date Description Comments Sex Unknown Immunizations CPT Code Status Date Vaccine Lot # [id number] Given 03/03/2008 Flu Injection Results Test Acquired Date Facility Test Result H/L Range Note Ua Routine 01/17/[address] [id number] [phone] Appearance, Urine CLOUDY High Clear Color, Urine YELLOW Normal Yellow PH,Urine 7.0 units Normal 5.0-9.0 Specific [place] Urine Auto 1.016 Normal 1.002-1.035 Protein, Urine Auto 1+ mg/dL High Negative Glucose, Urine (Ua) Auto NEGATIVE mg/dL Normal Negative Ketone, Urine Auto NEGATIVE mg/dL Normal Negative Urobilinogen, Urine Auto 0.2 mg/dL Normal 0.0-2.0 Bilirubin, Urine Auto NEGATIVE Normal Negative Nitrite, Urine Auto POSITIVE Normal Negative Leukocyte Esterase, Urine Auto 2+ High Negative Blood, Urine Blood NEGATIVE Normal Negative WBC, Urine Auto 59 /HPF High 0-3 RBC, Urine Auto 1 /HPF Normal 0-3 Bacteria, Urine Auto NEGATIVE Normal Negative Squamous Epithelial Cell Ur AU 0 /HPF Normal 0-6 Hyaline Cast, Urine Auto 0 /LPF Normal 0-1 Laboratory test finding 01/17/[address] [address] [phone] Urine Culture FULL REPORT IN L <SEE NOTE> Normal 1 CBC With Differential 11/22/[address] [id number] [phone] White Blood Count 4.7 10 Normal 4.0-10.0 Red Blood Count 4.23 10 Low 4.30-6.10 Hemoglobin 12.6 g/dL Low 13.5-17.5 Hematocrit 39.2 % Low 42.0-52.0 Mean Corpuscular Volume 92.7 fl Normal 80.0-96.0 Mean Corpuscular Hemoglobin 29.8 pg Normal 27.0-33.0 Mean Corpuscular HGB Conc 32.1 g/dL Normal 32.0-36.5 Red Cell Distribution Width 13.3 % Normal 11.5-14.5 Platelet Count, Automated 176 10 Normal 150-450 Neutrophils % 43.5 % Normal 36.0-66.0 Lymph % 37.4 % Normal 24.0-44.0 Cherry % 10.8 % High 2.0-8.0 Eos % 7.3 % High 0.0-3.0 Baso % 0.6 % Normal 0.0-1.0 Immature Granulocyte % 0.4 % Normal 0-3.0 Nucleated Red Blood Cell % 0.0 % Normal 0-0 Neutrophils # 2.0 10 Normal 1.5-8.5 Lymph # 1.7 10 Normal 1.5-5.0 [place] # 0.5 10 Normal 0.0-0.8 Eos # 0.3 10 Normal 0.0-0.5 Baso # 0.0 10 Normal 0.0-0.2 Laboratory test finding 11/22/[address] [id number] [phone] Ammonia 21 uMOL/L Normal <32 Comprehensive Metabolic Profil 11/22/[address] 1651920 [phone] Glucose, Fasting 100 mg/dL Normal 70-100 Blood Urea Nitrogen 15 mg/dL Normal 7-18 Creatinine For GFR 0.94 mg/dL Normal 0.70-1.30 Glomerular Filtration Rate > 60.0 Normal >49 2 Sodium Level 143 mEq/L Normal 136-145 Potassium Serum 4.3 mEq/L Normal 3.5-5.1 Chloride Level 108 mEq/L High 98-107 Carbon Dioxide Level 33 mEq/L High 21-32 Anion Gap 2 mEq/L Low 8-16 Calcium Level 8.8 mg/dL Normal 8.8-10.2 Ast/Sgot 14 U/L Normal 7-37 Alt/SGPT 29 U/L Normal 12-78 Alkaline Phosphatase 150 U/L High 45-117 Bilirubin,Total 0.2 mg/dL Normal 0.2-1.0 Total Protein 6.9 GM/DL Normal 6.4-8.2 Albumin 4.0 GM/DL Normal 3.2-5.2 Albumin/Globulin Ratio 1.4 Normal Laboratory test finding 11/22/2020 [facility] [address] [place] [address] [phone] Phenytoin (Dilantin) 18.3 UG/ML Normal 10.0-20.0 Phenobarbital Level 32.8 UG/ML Normal 15.0-40.0 Levetiracetam (Keppra) 27.6 ug/mL Normal 10.0-40.0 3 Lamotrigine (Lamictal) 6.5 ug/mL Normal 2.0-20.0 4 CBC With Differential 09/27/2020 [facility] [address] [place] [address] [phone] White Blood Count 4.9 10 Normal 4.0-10.0 Red Blood Count 4.36 10 Normal 4.30-6.10 Hemoglobin 12.7 g/dL Low 13.5-17.5 Hematocrit 40.0 % Low 42.0-52.0 Mean Corpuscular Volume 91.7 fl Normal 80.0-96.0 Mean Corpuscular Hemoglobin 29.1 pg Normal 27.0-33.0 Mean Corpuscular HGB Conc 31.8 g/dL Low 32.0-36.5 Red Cell Distribution Width 13.7 % Normal 11.5-14.5 Platelet Count, Automated 168 10 Normal 150-450 Neutrophils % 56.4 % Normal 36.0-66.0 Lymph % 27.0 % Normal 24.0-44.0 [place] % 9.3 % High 2.0-8.0 Eos % 6.5 % High 0.0-3.0 Baso % 0.8 % Normal 0.0-1.0 Immature Granulocyte % 0.0 % Normal 0-3.0 Nucleated Red Blood Cell % 0.0 % Normal 0-0 Neutrophils # 2.8 10 Normal 1.5-8.5 Lymph # 1.3 10 Low 1.5-5.0 [place] # 0.5 10 Normal 0.0-0.8 Eos # 0.3 10 Normal 0.0-0.5 Baso # 0.0 10 Normal 0.0-0.2 Comprehensive Metabolic Profil 09/27/2020 [place] [id number] [phone] Glucose, Fasting 106 mg/dL High 70-100 Blood Urea Nitrogen 14 mg/dL Normal 7-18 Creatinine For GFR 0.81 mg/dL Normal 0.70-1.30 Glomerular Filtration Rate > 60.0 Normal >49 5 Sodium Level 139 mEq/L Normal 136-145 Potassium Serum 4.5 mEq/L Normal 3.5-5.1 Chloride Level 104 mEq/L Normal 98-107 Carbon Dioxide Level 33 mEq/L High 21-32 Anion Gap 2 mEq/L Low 8-16 Calcium Level 9.0 mg/dL Normal 8.8-10.2 Ast/Sgot 10 U/L Normal 7-37 Alt/SGPT 21 U/L Normal 12-78 Alkaline Phosphatase 134 U/L High 45-117 Bilirubin,Total 0.3 mg/dL Normal 0.2-1.0 Total Protein 6.9 GM/DL Normal 6.4-8.2 Albumin 3.9 GM/DL Normal 3.2-5.2 Albumin/Globulin Ratio 1.3 Normal Lipid Panel 09/27/[address] [address] [phone] Triglycerides Level 109 mg/dL Normal <150 Cholesterol Level 156 mg/dL Normal <200 HDL Cholesterol 56 mg/dL Normal >40 LDL Cholesterol 78 mg/dL Normal <100 Non-HDL-C 100 mg/dL Normal Cholesterol Risk Ratio 2.785 Normal <5 FT4&TSH Panel 09/27/[address] [address] [phone] Thyroid Stimulating Hormone 2.130 uIU/ML Normal 0. 358-3.740 Free T4 0.48 ng/dL Low 0.76-1.46 Hemoglobin A1c 09/27/[address] [address] [phone] Hemoglobin A1c 5.7 % Normal 6 Estimated Average Glucose 117 mg/dL High 60-110 Laboratory test finding 09/27/2020 [place] [address] [place] [address] [phone] Ammonia 22 uMOL/L Normal <32 Phenytoin (Dilantin) 19.7 UG/ML Normal 10.0-20.0 Phenobarbital Level 33.4 UG/ML Normal 15.0-40.0 Levetiracetam (Keppra) 21.1 ug/mL Normal 10.0-40.0 7 Lamotrigine (Lamictal) 6.5 ug/mL Normal 2.0-20.0 8 Urine Culture 09/12/[address] [address] [phone] Urine Culture FULL REPORT IN L <SEE NOTE> Normal 9 Ua Routine 09/12/[address] [address] [phone] Appearance, Urine CLOUDY High Clear Color, Urine YELLOW Normal Yellow PH,Urine 7.0 units Normal 5.0-9.0 Specific [place] Urine Auto 1.019 Normal 1.002-1.035 Protein, Urine Auto 1+ mg/dL High Negative Glucose, Urine (Ua) Auto NEGATIVE mg/dL Normal Negative Ketone, Urine Auto NEGATIVE mg/dL Normal Negative Urobilinogen, Urine Auto 0.2 mg/dL Normal 0.0-2.0 Bilirubin, Urine Auto NEGATIVE Normal Negative Nitrite, Urine Auto NEGATIVE Normal Negative Leukocyte Esterase, Urine Auto 3+ High Negative Blood, Urine Blood 1+ High Negative WBC, Urine Auto TNTC /HPF High 0-3 RBC, Urine Auto 32 /HPF High 0-3 Bacteria, Urine Auto NEGATIVE Normal Negative Squamous Epithelial Cell Ur AU 0 /HPF Normal 0-6 Mucus, Urine SMALL Normal Negative Hyaline Cast, Urine Auto 0 /LPF Normal 0-1 1 FULL REPORT IN LAB NOTES ([facility]). ORGANISM 1: STAPHYLOCOCCUS HOMINIS SSP SEDA COLONY COUNT >100,000 ORGANISM 1: STAPHYLOCOCCUS HOMINIS SSP SEDA STAPHYLOCOCCUS HOMINIS SSP SEDA: REACTION ICR (INDUCIBLE CC RESISTANCE) IV ICR TEST RESULT TETRACYCLINE PO 250 mg qid 2 S PENICILLIN G IV 1 mu q6H >=0.5 R PENICILLIN G IV 1 mu q6h >=0.5 R PENICILLIN G PO 250mg q6h fasting >=0.5 R TRIMETHOPRIM/SULFAMETHOXAZOLE IV 160mg TMP & 800mg SMXq6h 160 R TRIMETHOPRIM/SULFAMETHOXAZOLE PO Bactrim DS Bid 160 R ERYTHROMYCIN IV 500mg q6h >=8 R ERYTHROMYCIN PO 500mg q6h >=8 R GENTAMICIN IV 80mg q8h 8 I CLINDAMYCIN IV 600mg q6h >=4 R CLINDAMYCIN PO 150mg q6h >=4 R NITROFURANTOIN PO 100mg BID <=16 S OXACILLIN IV 500mg q6h >=4 R VANCOMYCIN IV 500mg q8h 1 S LINEZOLID (ZYVOX) IV 600MG Q12HR 1 S LINEZOLID (ZYVOX) PO 600MG Q12HR 1 S An isolate with a (+) POSITIVE ICR test is considered CLINDAMYCIN RESISTANT; however, clindamycin may still be effective in some patients. An isolate with a (-) NEGATIVE ICR test is considered CLIDAMYCIN SENSITIVE. 2 Units are mL/min/1.73 m2 Chronic Kidney Disease Staging per NKF: Stage I & II GFR >=60 Normal to Mildly Decreased Stage III GFR 30-59 Moderately Decreased Stage IV GFR 15-29 Severely Decreased Stage V GFR <15 Very Little GFR Left ESRD GFR <15 on DIRECTOR OF [employer]PERATIONS 3 This test was developed and its performance characteristics determined by [employer]. It has not been cleared or approved by the Food and Drug Administration. 4 Detection Limit = 1.0 Performed at: [address] [id number] 61 Health Outreach Worker: Nomi Barrett MD, Phone: [phone] 5 Units are mL/min/1.73 m2 Chronic Kidney Disease Staging per NKF: Stage I & II GFR >=60 Normal to Mildly Decreased Stage III GFR 30-59 Moderately Decreased Stage IV GFR 15-29 Severely Decreased Stage V GFR <15 Very Little GFR Left ESRD GFR <15 on [employer]OR [employer]PERATIONS 6 REFERENCE RANGES: <=5.6% NORMAL 5.7-6.4% SUGGESTS IMPAIRED GLUCOSE META BOLISM/PREDIABETIC >= 6.5% ABNORMAL 7 This test was developed and its performance characteristics determined by [employer]. It has not been cleared or approved by the Food and Drug Administration. 8 Detection Limit = 1.0 Performed at: [facility] [id number] 61 Health Outreach Worker: Nomi Barrett MD, Phone: [phone] FULL REPORT IN LAB NOTES (eC W and [employer]). NO GROWTH CLINICAL SIGNIFICANCE 1 ORGANISM Procedures Date Code Description Status 01/11/2021 66715 Office/Outpatient Established Lo w MDM 20-29 Min Completed Encounters Type Date Location Provider Dx Diagnosis Office Visit 01/11/2021 2:00p [facility] JEANA James I10 Essential (primary) hyperten brian E78.5 Hyperlipidemia, unspecified G40.89 Other seizures Office Visit 12/06/2020 10:00a [facility] JEANA James Z00.00 Encntr for general adult med ical exam w/o abnormal findings I10 Essential (primary) hyperten brian E78.5 Hyperlipidemia, unspecified Assessments Date Code Description Provider 01/11/2021 I10 Essential (primary) hypertension JEANA Tavarez 01/11/2021 E78.5 Hyperlipidemia, unspecified JEANA Rothman 01/11/2021 G40.89 Other seizures JEANA Jacobson 12/06/2020 Z00.00 Encounter for genera l adult medical examination without abnormal findings JEANA Tavarez 12/06/2020 I10 Essential (primary) hypertension JEANA Tavarez 12/06/2020 E78.5 Hyperlipidemia, unspecified JEANA Rothman Plan of Treatment Future Appointment(s):* 03/08/2021 10:30 am - JEANA Tavarez at [facility] * 12/07/2021 10:00 am - JEANA Tavarez at [facility]
--- OUTSIDE RECORDS SUMMARY | 2021-03-14 09:04 | CCD | Continuity of Care Document ---
Author Author Hemanth BONDS PA Organization Unknown Address [address] [place] [address] [address] [place] [address] Phone [phone] Care Team Providers Care Director Religious Education Name Role Phone Ruy Jones [employer] [phone] Ruy Jones [employer] [phone] Social History Type Date Description Comments Sex Unknown Immunizations CPT Code Status Date Vaccine Lot # [id number] Given 03/03/2008 Flu Injection Results Test Acquired Date Facility Test Result H/L Range Note Ua Routine 01/17/[address] [id number] [phone] Appearance, Urine CLOUDY High Clear Color, Urine YELLOW Normal Yellow PH,Urine 7.0 units Normal 5.0-9.0 Specific [place] Urine Auto 1.016 Normal 1.002-1.035 Protein, Urine [...] /LPF Normal 0-1 Laboratory test finding 01/17/[address] [address] [phone] Urine Culture FULL REPORT IN L <SEE NOTE> Normal 1 CBC With Differential 11/22/[address] [id number] [phone] White Blood Count 4.7 10 Normal 4.0-10.0 [...] 36.0-66.0 Lymph % 37.4 % Normal 24.0-44.0 [place] % 10.8 % High 2.0-8.0 Eos % 7.3 % High 0.0-3.0 Baso % 0.6 % Normal 0.0-1.0 Immature Granulocyte % 0.4 % Normal 0-3.0 Nucleated Red Blood Cell % 0.0 % Normal 0-0 Neutrophils # 2.0 10 Normal 1.5-8.5 Lymph # 1.7 10 Normal 1.5-5.0 [place] # 0.5 10 Normal 0.0-0.8 Eos # 0.3 10 Normal 0.0-0.5 Baso # 0.0 10 Normal 0.0-0.2 Laboratory test finding 11/22/[address] 6863914 [phone] Ammonia 21 uMOL/L Normal <32 Comprehensive Metabolic Profil 11/22/[address] [id number] [phone] Glucose, Fasting 100 mg/dL Normal 70-100 Blood [...] Ratio 1.4 Normal Laboratory test finding 11/22/2020 [facility] [address] [place] [address] [phone] Phenytoin (Dilantin) 18.3 UG/ML Normal 10.0-20.0 Phenobarbital Level 32.8 UG/ML Normal 15.0-40.0 Levetiracetam (Keppra) 27.6 ug/mL Normal 10.0-40.0 3 Lamotrigine (Lamictal) 6.5 ug/mL Normal 2.0-20.0 4 CBC With Differential 09/27/2020 [facility] [address] [place] [address] [phone] White Blood Count 4.9 10 Normal 4.0-10.0 [...] 36.0-66.0 Lymph % 27.0 % Normal 24.0-44.0 [place] % 9.3 % High 2.0-8.0 Eos % 6.5 % High 0.0-3.0 Baso % 0.8 % Normal 0.0-1.0 Immature Granulocyte % 0.0 % Normal 0-3.0 Nucleated Red Blood Cell % 0.0 % Normal 0-0 Neutrophils # 2.8 10 Normal 1.5-8.5 Lymph # 1.3 10 Low 1.5-5.0 [place] # 0.5 10 Normal 0.0-0.8 Eos # 0.3 10 Normal 0.0-0.5 Baso # 0.0 10 Normal 0.0-0.2 Comprehensive Metabolic Profil 09/27/2020 [place] 3292331 [phone] Glucose, Fasting 106 mg/dL High 70-100 Blood [...] Albumin/Globulin Ratio 1.3 Normal Lipid Panel 09/27/[address] [address] [phone] Triglycerides Level 109 mg/dL Normal <150 Cholesterol Level 156 mg/dL Normal <200 HDL Cholesterol 56 mg/dL Normal >40 LDL Cholesterol 78 mg/dL Normal <100 Non-HDL-C 100 mg/dL Normal Cholesterol Risk Ratio 2.785 Normal <5 FT4&TSH Panel 09/27/[address] [address] [phone] Thyroid Stimulating Hormone 2.130 uIU/ML Normal 0. 358-3.740 Free T4 0.48 ng/dL Low 0.76-1.46 Hemoglobin A1c 09/27/[address] [address] [phone] Hemoglobin A1c 5.7 % Normal 6 Estimated Average Glucose 117 mg/dL High 60-110 Laboratory test finding 09/27/2020 [place] [address] [place] [address] [phone] Ammonia 22 uMOL/L Normal <32 Phenytoin (Dilantin) 19.7 UG/ML Normal 10.0-20.0 Phenobarbital Level 33.4 UG/ML Normal 15.0-40.0 Levetiracetam (Keppra) 21.1 ug/mL Normal 10.0-40.0 7 Lamotrigine (Lamictal) 6.5 ug/mL Normal 2.0-20.0 8 Urine Culture 09/12/[address] [address] [phone] Urine Culture FULL REPORT IN L <SEE NOTE> Normal 9 Ua Routine 09/12/[address] [address] [phone] Appearance, Urine CLOUDY High Clear Color, Urine YELLOW Normal Yellow PH,Urine 7.0 units Normal 5.0-9.0 Specific [place] Urine Auto 1.019 Normal 1.002-1.035 Protein, Urine [...] Little GFR Left ESRD GFR <15 on [employer] 3 This test was developed and its performance characteristics determined by [employer]. It has not been cleared or approved by the Food and Drug Administration. 4 Detection Limit = 1.0 Performed at: [address] [id number] Quality Assurance Assistant: Nomi Barrett MD, Phone: [phone] 5 Units are mL/min/1.73 m2 Chronic Kidney Disease Staging per NKF: Stage I & II GFR >=60 Normal to Mildly Decreased Stage III GFR 30-59 Moderately Decreased Stage IV GFR 15-29 Severely Decreased Stage V GFR <15 Very Little GFR Left ESRD GFR <15 on [employer] 6 REFERENCE RANGES: <=5.6% NORMAL 5.7-6.4% SUGGESTS IMPAIRED GLUCOSE META BOLISM/PREDIABETIC >= 6.5% ABNORMAL 7 This test was developed and its performance characteristics determined by [employer]. It has not been cleared or approved by the Food and Drug Administration. 8 Detection Limit = 1.0 Performed at: [facility] [address] [id number] Quality Assurance Assistant: Nomi Barrett MD, Phone: [phone] FULL REPORT IN LAB NOTES (eC W and [employer]). NO GROWTH CLINICAL SIGNIFICANCE 1 ORGANISM Procedures Date Code Description Status 01/11/2021 [address] Office/Outpatient Established Lo w MDM 20-29 Min Completed Encounters Type Date Location Provider Dx Diagnosis Office Visit 01/11/2021 2:00p [facility] JEANA James I10 Essential (primary) hyperten brian E78.5 Hyperlipidemia, unspecified G40.89 Other seizures Office Visit 12/06/2020 10:00a [facility] JEANA James Z00.00 Encntr for general adult [...] 03/08/2021 10:30 am - JEANA Tavarez at [facility] * 12/07/2021 10:00 am - JEANA Tavarez at [facility]
--- OUTSIDE RECORDS SUMMARY | 2021-03-14 09:04 | CCD | Continuity of Care Document ---
Author Author Hemanth BONDS PA Organization Unknown Address [address] [place] [address] [address] [place] [address] Phone [phone] Care Team Providers Care Geometrician Name Role Phone Ruy Jones AUTM [phone] Ruy Jones AUTM [phone] Social History Type Date Description Comments Sex Unknown ETOH Use Never used alcohol Tobacco Use Start: Unknown Patient has never smoked Recreational Drug Use Never Used Drugs Allergies and adverse reactions Active Allergies Criticality Reaction | Severity Comments Date Haldol Unable to assess criticality 02/23/2021 Lurasidone Unable to assess criticality 02/23/2021 Tegaderm Unable to assess criticality 02/23/2021 Felbatol Unable to assess criticality 02/23/2021 Medications Active Medications SIG Qnty Indications Ordering Provide r Date Levetiracetam 1000mg Tablets 1 tab by mouth twice a day 180tabs JEANA Tavarez 01/27 Aveeno Anti Itch 1-3%External Lotion apply a thin laye r to affected areas on trunk and extremities three times a day as needed JEANA Tavarez 02/23/2021 Prazosin HCL 1mg Capsules take one capsule by mouth at bedtime JEANA Tavarez Clonazepam 0.25 MG Tablet Disintegrating take one tabl et by mouth twice a day at 12 and 4 JEANA Tavarez 2020 Flonase Allergy Relief 50mcg/Act Suspension 2 sprays each nostril daily 54.6ml JEANA Bridges 02/23/2021 Mupirocin Calcium 2% Cream place a thin layer on wound two times a day 45gm JEANA Heart 02/23/2021 Miralax 17gm Packet mix one packet with 8 ounce of water or juice daily 90units JEANA Hill 02/23/2021 Lamotrigine 200MG take one tablet by mouth twice daily JEANA Tavarez 02/23/2021 Novofine Plus Pen Needle 32G X 4mm 32G X 4 mm Misc use with insulin pens 100units JEANA Lizarraga 02/23/2021 Linzess 290mcg Capsules 1 by mouth every day 90caps JEANA Tavarez 2020 Clorazepate Dipotassium 3.75mg Tab lets take one half tablet by mouth twice daily JEANA Calloway 02/23/2021 Senna 8.6mg Tablets take one tablet by mouth once daily as needed JEANA Tavarez 02/23/2021 Simvastatin 20mg Tablets take one tablet by mouth at bedtime JEANA Tavarez Vitamin D3 Ultra Potency 1.25mg ([id number] Ut) Tablets take one tablet by mouth weekly with food bottle 12tabs JEANA Tavarez 02/23/2021 Oyster Shell Calcium W/D [id number] Tablets take one tablet by mouth @12pm 90tabs JEANA Tavarez 02/23/2021 Dilantin 100mg Capsules take one tablet in the am and two tablets at bedtime JEANA Gross 02/23/2021 Tamsulosin HCL 0.4mg Capsules take one tablet by mouth daily Unknown Dilantin 30mg Capsules take one tablet by mouth daily Omayra Engel Trazodone HCL 100mg Tablets take one tablet by mouth at bedtime Unknown Phenobarbital 64.8mg Tablets take one tablet by mouth twice daily Omayra Engel Hydroxyzine HCL 25mg Tablets take one tablet four times daily Unknown Paroxetine HCL 40mg Tablets take one tablet by mouth daily Unknown Quetiapine Fumarate 300mg Tablets take one tablet by mouth twice daily Unknown Immunizations CPT Code Status Date Vaccine Lot # [id number] Given 03/03/2008 Flu Injection Vital Signs Date Vital Result Comment 12/06/2020 12:40pm Height 71 inches 5'11" Weight 223.00 lb BMI (Body Mass Index) 31.1 kg/m2 Body Temperature 98.5 F BP Systolic 116 mmHg BP Diastolic 70 mmHg Heart Rate 78 /min O2 % BldC Oximetry 90 % Respiratory Rate 16 /min Results Test Acquired Date Facility Test Result H/L Range Note Comprehensive Metabolic Profil 02/26/[address] [address] [phone] Glucose, Fasting 115 mg/dL High 70-100 Blood Urea Nitrogen 14 mg/dL Normal 7-18 Creatinine For GFR 0.94 mg/dL Normal 0.70-1.30 Glomerular Filtration Rate > 60.0 Normal >49 1 Sodium Level 142 mEq/L Normal 136-145 Potassium Serum 4.0 mEq/L Normal 3.5-5.1 Chloride Level 106 mEq/L Normal 98-107 Carbon Dioxide Level 31 mEq/L Normal 21-32 Anion Gap 5 mEq/L Low 8-16 Calcium Level 9.5 mg/dL Normal 8.8-10.2 Ast/Sgot 13 U/L Normal 7-37 Alt/SGPT 20 U/L Normal 12-78 Alkaline Phosphatase 135 U/L High 45-117 Bilirubin,Total 0.2 mg/dL Normal 0.2-1.0 Total Protein 7.0 GM/DL Normal 6.4-8.2 Albumin 3.8 GM/DL Normal 3.2-5.2 Albumin/Globulin Ratio 1.2 Normal Lipid Panel 02/26/[address] [address] [phone] Triglycerides Level 154 mg/dL High <150 Cholesterol Level 174 mg/dL Normal <200 HDL Cholesterol 51 mg/dL Normal >40 LDL Cholesterol 92 mg/dL Normal <100 Non-HDL-C 123 mg/dL Normal Cholesterol Risk Ratio 3.411 Normal <5 Laboratory test finding 02/26/[address] [address] [phone] Prostatic Specific Ag Monitor 0.01 NG/ML Normal < 4.00 2 FT4&TSH Panel 02/26/[address] [address] [phone] Thyroid Stimulating Hormone 2.000 uIU/ML Normal 0. 358-3.740 Free T4 0.47 ng/dL Low 0.76-1.46 Basic Metabolic Profile 02/26/[address] [address] [phone] Glucose, Fasting 113 mg/dL High 70-100 Blood Urea Nitrogen 15 mg/dL Normal 7-18 Creatinine For GFR 0.90 mg/dL Normal 0.70-1.30 Glomerular Filtration Rate > 60.0 Normal >49 3 Sodium Level 142 mEq/L Normal 136-145 Potassium Serum 4.0 mEq/L Normal 3.5-5.1 Chloride Level 106 mEq/L Normal 98-107 Carbon Dioxide Level 34 mEq/L High 21-32 Anion Gap 2 mEq/L Low 8-16 Calcium Level 9.6 mg/dL Normal 8.8-10.2 Laboratory test finding 02/26/[address] [address] [phone] PSA Screening 0.02 NG/ML Normal < 4.00 4 CBC With Differential 02/26/[address] [address] [phone] White Blood Count 4.3 10 Normal 4.0-10.0 Red Blood Count 4.18 10 Low 4.30-6.10 Hemoglobin 12.4 g/dL Low 13.5-17.5 Hematocrit 39.1 % Low 42.0-52.0 Mean Corpuscular Volume 93.5 fl Normal 80.0-96.0 Mean Corpuscular Hemoglobin 29.7 pg Normal 27.0-33.0 Mean Corpuscular HGB Conc 31.7 g/dL Low 32.0-36.5 Red Cell Distribution Width 14.3 % Normal 11.5-14.5 Platelet Count, Automated 165 10 Normal 150-450 Neutrophils % 45.4 % Normal 36.0-66.0 Lymph % 36.9 % Normal 24.0-44.0 [place] % 8.9 % High 2.0-8.0 Eos % 7.9 % High 0.0-3.0 Baso % 0.7 % Normal 0.0-1.0 Immature Granulocyte % 0.2 % Normal 0-3.0 Nucleated Red Blood Cell % 0.0 % Normal 0-0 Neutrophils # 1.9 10 Normal 1.5-8.5 Lymph # 1.6 10 Normal 1.5-5.0 [place] # 0.4 10 Normal 0.0-0.8 Eos # 0.3 10 Normal 0.0-0.5 Baso # 0.0 10 Normal 0.0-0.2 Ua Routine 01/17/[address] [address] [phone] Appearance, Urine CLOUDY High Clear Color, Urine YELLOW Normal Yellow PH,Urine 7.0 units Normal 5.0-9.0 Specific [place] Urine Auto 1.016 Normal 1.002-1.035 Protein, Urine [...] /LPF Normal 0-1 Laboratory test finding 01/17/2021 [facility] [address] [place] [address] [phone] Urine Culture FULL REPORT IN L <SEE NOTE> Normal 5 Laboratory test finding 11/22/2020 [facility] [address] [place] [address] [phone] Ammonia 21 uMOL/L Normal <32 Laboratory test finding 11/22/2020 [facility] [address] [place] [address] [phone] Phenytoin (Dilantin) 18.3 UG/ML Normal 10.0-20.0 Phenobarbital Level 32.8 UG/ML Normal 15.0-40.0 Levetiracetam (Keppra) 27.6 ug/mL Normal 10.0-40.0 6 Lamotrigine (Lamictal) 6.5 ug/mL Normal 2.0-20.0 7 Comprehensive Metabolic Profil 11/22/[address] [id number] [phone] Glucose, Fasting 100 mg/dL Normal 70-100 Blood Urea Nitrogen 15 mg/dL Normal 7-18 Creatinine For GFR 0.94 mg/dL Normal 0.70-1.30 Glomerular Filtration Rate > 60.0 Normal >49 8 Sodium Level 143 mEq/L Normal 136-145 Potassium [...] GM/DL Normal 3.2-5.2 Albumin/Globulin Ratio 1.4 Normal CBC With Differential 11/22/[address] [address] [phone] White Blood Count 4.7 10 Normal 4.0-10.0 [...] 36.0-66.0 Lymph % 37.4 % Normal 24.0-44.0 [place] % 10.8 % High 2.0-8.0 Eos % 7.3 % High 0.0-3.0 Baso % 0.6 % Normal 0.0-1.0 Immature Granulocyte % 0.4 % Normal 0-3.0 Nucleated Red Blood Cell % 0.0 % Normal 0-0 Neutrophils # 2.0 10 Normal 1.5-8.5 Lymph # 1.7 10 Normal 1.5-5.0 [place] # 0.5 10 Normal 0.0-0.8 Eos # 0.3 10 Normal 0.0-0.5 Baso # 0.0 10 Normal 0.0-0.2 CBC With Differential 09/27/[address] [address] [phone] White Blood Count 4.9 10 Normal 4.0-10.0 [...] 36.0-66.0 Lymph % 27.0 % Normal 24.0-44.0 [place] % 9.3 % High 2.0-8.0 Eos % 6.5 % High 0.0-3.0 Baso % 0.8 % Normal 0.0-1.0 Immature Granulocyte % 0.0 % Normal 0-3.0 Nucleated Red Blood Cell % 0.0 % Normal 0-0 Neutrophils # 2.8 10 Normal 1.5-8.5 Lymph # 1.3 10 Low 1.5-5.0 [place] # 0.5 10 Normal 0.0-0.8 Eos # 0.3 10 Normal 0.0-0.5 Baso # 0.0 10 Normal 0.0-0.2 Comprehensive Metabolic Profil 09/27/[address] [address] [phone] Glucose, Fasting 106 mg/dL High 70-100 Blood Urea Nitrogen 14 mg/dL Normal 7-18 Creatinine For GFR 0.81 mg/dL Normal 0.70-1.30 Glomerular Filtration Rate > 60.0 Normal >49 9 Sodium Level 139 mEq/L Normal 136-145 Potassium [...] Albumin/Globulin Ratio 1.3 Normal Lipid Panel 09/27/[address] [address] [phone] Triglycerides Level 109 mg/dL Normal <150 Cholesterol Level 156 mg/dL Normal <200 HDL Cholesterol 56 mg/dL Normal >40 LDL Cholesterol 78 mg/dL Normal <100 Non-HDL-C 100 mg/dL Normal Cholesterol Risk Ratio 2.785 Normal <5 FT4&TSH Panel 09/27/[address] [address] [phone] Thyroid Stimulating Hormone 2.130 uIU/ML Normal 0. 358-3.740 Free T4 0.48 ng/dL Low 0.76-1.46 Hemoglobin A1c 09/27/[address] [address] [phone] Hemoglobin A1c 5.7 % Normal 10 Estimated Average Glucose 117 mg/dL High 60-110 Laboratory test finding 09/27/[address] [address] [phone] Ammonia 22 uMOL/L Normal <32 Phenytoin (Dilantin) 19.7 UG/ML Normal 10.0-20.0 Phenobarbital Level 33.4 UG/ML Normal 15.0-40.0 Levetiracetam (Keppra) 21.1 ug/mL Normal 10.0-40.0 11 Lamotrigine (Lamictal) 6.5 ug/mL Normal 2.0-20.0 12 Urine Culture 09/12/[address] [address] [phone] Urine Culture FULL REPORT IN L <SEE NOTE> Normal 13 Ua Routine 09/12/[address] [address] [phone] Appearance, Urine CLOUDY High Clear Color, Urine YELLOW Normal Yellow PH,Urine 7.0 units Normal 5.0-9.0 Specific [place] Urine Auto 1.019 Normal 1.002-1.035 Protein, Urine [...] Urine Auto 0 /LPF Normal 0-1 1 Units are mL/min/1.73 m2 Chronic Kidney Disease Staging per NKF: Stage I & II GFR >=60 Normal to Mildly Decreased Stage III GFR 30-59 Moderately Decreased Stage IV GFR 15-29 Severely Decreased Stage V GFR <15 Very Little GFR Left ESRD GFR <15 on STITCH MARKER 2 The PSA assay is performed o n the [employer] analyzer by [employer] sandwich chemiluminescent immunoassay and should not be compared interchangeably with other methods. It should not be used alone as a screening test or diagnosis for the presence or absence of malignant disease. Predictions of disease recurrence should not be based solely on values obtained from serial patient serum values. 3 Units are mL/min/1.73 m2 Chronic Kidney Disease Staging per NKF: Stage I & II GFR >=60 Normal to Mildly Decreased Stage III GFR 30-59 Moderately Decreased Stage IV GFR 15-29 Severely Decreased Stage V GFR <15 Very Little GFR Left ESRD GFR <15 on STITCH MARKER 4 The PSA assay is performed o n the Siemens Williamson analyzer by [employer] sandwich chemiluminescent immunoassay and should not be compared interchangeably with other methods. It should not be used alone as a screening test or diagnosis for the presence or absence of malignant disease. Predictions of disease recurrence should not be based solely on values obtained from serial patient serum values. 5 FULL REPORT IN LAB NOTES (eC W [...] NEGATIVE ICR test is considered CLIDAMYCIN SENSITIVE. 6 This test was developed and its performance characteristics determined by [employer]. It has not been cleared or approved by the Food and Drug Administration. 7 Detection Limit = 1.0 Performed at: [address] [id number] Gymnastic Teacher: Nomi Barrett MD, Phone: [phone] Units are mL/min/1.73 m2 Chronic Kidney Disease Staging per NKF: Stage I & II GFR >=60 Normal to Mildly Decreased Stage III GFR 30-59 Moderately Decreased Stage IV GFR 15-29 Severely Decreased Stage V GFR <15 Very Little GFR Left ESRD GFR <15 on STITCH MARKER 9 Units are mL/min/1.73 m2 Chronic Kidney Disease Staging per NKF: Stage I & II GFR >=60 Normal to Mildly Decreased Stage III GFR 30-59 Moderately Decreased Stage IV GFR 15-29 Severely Decreased Stage V GFR <15 Very Little GFR Left ESRD GFR <15 on STITCH MARKER 10 REFERENCE RANGES: <=5.6% NORMAL 5.7-6.4% SUGGESTS IMPAIRED GLUCOSE META BOLISM/PREDIABETIC >= 6.5% ABNORMAL 11 This test was developed and its performance characteristics determined by [employer]. It has not been cleared or approved by the Food and Drug Administration. 12 Detection Limit = 1.0 Performed at: [facility] [employer] [id number] Gymnastic Teacher: Nomi Barrett MD, Phone: [phone] FULL REPORT IN LAB NOTES (eC W and [employer]). NO GROWTH CLINICAL SIGNIFICANCE 1 ORGANISM Procedures Date Code Description Status 01/11/2021 [address] Office/Outpatient Established Lo w MDM 20-29 Min Completed Encounters Type Date Location Provider Dx Diagnosis Office Visit 01/11/2021 2:00p [facility] JEANA James I10 Essential (primary) hyperten brian E78.5 Hyperlipidemia, unspecified G40.89 Other seizures Office Visit 12/06/2020 10:00a [facility] JENAA James Z00.00 Encntr for general adult med [...] hypertension JEANA Tavarez 12/06/2020 E78.5 Hyperlipidemia, unspecified [place] JEANA Bustamante Plan of Treatment Future Appointment(s):* 03/08/2021 10:30 am - JEANA Tavarez at [facility] * 12/07/2021 10:00 am - JEANA Tavarez at [facility]
--- OUTSIDE RECORDS SUMMARY | 2021-03-14 09:04 | CCD | Continuity of Care Document ---
Author Author Hemanth AGUILAR PA Organization Unknown Address [address] [place] [address] [address] [place] [address] Phone [phone] Care Team Providers Care Statistical Methods Professor Name Role Phone Ruy Jones AUTM [phone] [facility] AUTM [phone] Ruy Jones AUTM [phone] Social History Type Date Description Comments Sex [...] SIG Qnty Indications Ordering Provide r Date Fleet Enema 7-19GM/118ML Enema as needed [facility] 03/08/2021 Dulcolax Suppositories one suppository day 4 of no bowel movements [facility] 03/08/2021 Milk Of Magnesia 400mg/5ML Suspens ion 30 milliliters by mouth day 3 of no bowel movement 355ml [facility] 03/08/2021 Aveeno Anti-Itch 1-3% Lotion apply prn for skin itching [facility] 03/08/20 21 Levetiracetam 500mg Tablets 3 tabs by mouth twice a day 270tabs [facility] 2020 Lactulose 10GM/15ML Solution 20ml by mouth twice a day 474ml [facility] 03/08/20 21 Hydroxyzine HCL 50mg Tablets 1 tab by mouth twice a day 180tabs [facility] 2020 Clobazam 10mg Tablets 1/2 tab by mouth twice a day 90tabs [facility] 03/08/20 21 Lamotrigine 200mg Tablets 1 tab every evening 90tabs JEANA Tavarez 2020 Novofine Plus Pen Needle 32G X 4mm 32G X 4 mm Misc use with insulin pens 100units JEANA Lizarraga 02/23/2021 Aveeno Anti Itch 1-3%External Lotion apply a thin laye r to affected areas on trunk and extremities three times a day as needed JEANA Tavarez 02/23/2021 Prazosin HCL 1mg Capsules take one capsule by mouth at bedtime JEANA Tavarez Flonase Allergy Relief 50mcg/Act Suspension 2 sprays each nostril daily 54.6ml JEANA Bridges 02/23/2021 Miralax 17gm Packet mix one packet with 8 ounce of water or juice daily 90units JEANA Hill 02/23/2021 Linzess 290mcg Capsules 1 by mouth every day 90caps JEANA Tavarez 2020 Senna 8.6mg Tablets take two tablet by mouth once daily as needed 180tabs JEANA Tavarez 02/23/2021 Simvastatin 20mg Tablets take one tablet by mouth at bedtime JEANA Tavarez Vitamin D3 Ultra Potency 1.25mg (08610 Ut) Tablets take one tablet by mouth weekly with food bottle 12tabs JEANA Tavarez 02/23/2021 Oyster Shell Calcium W/D [id number] Tablets take one tablet by mouth @12pm 90tabs JEANA Tavarez 02/23/2021 Dilantin 100mg Capsules take one tablet in the am and two tablets at bedtime JEANA Gross 02/23/2021 Tamsulosin HCL 0.4mg Capsules take one tablet by mouth daily Unknown Trazodone HCL 100mg Tablets take one tablet by mouth at bedtime Unknown Phenobarbital 64.8mg Tablets take one tablet by mouth twice daily Omayra Engel Paroxetine HCL 40mg Tablets take one tablet by mouth daily Unknown Quetiapine Fumarate 300mg Tablets take one tablet by mouth twice daily Unknown History Medications Levetiracetam 1000mg Tablets 1 tab by mouth twice a day 180tabs JEANA Tavarez 01/27 - 03/08/2021 Clorazepate Dipotassium 3.75mg Tab lets take one half tablet by mouth twice daily JEANA Calloway 02/23/2021 - 03/08/2021 Lamotrigine 200MG take one tablet by mouth twice daily JEANA Tavarez 02/23/2021 - 03/08/2021 Mupirocin Calcium 2% Cream place a thin layer on wound two times a day 45gm JEANA Heart 02/23/2021 - 03/08/2021 Clonazepam 0.25 MG Tablet Disintegrating take one tabl et by mouth twice a day at 12 and 4 JEANA Tavarez 2020 - 03/08/2021 Immunizations CPT Code Status Date Vaccine Lot # [id number] Given 03/03/2008 Flu Injection Vital Signs Date Vital Result Comment 03/08/2021 10:32am Height 71 inches 5'11" Weight 221.50 lb BMI (Body Mass Index) 30.9 kg/m2 Body Temperature 98.3 F BP Systolic 123 mmHg BP Diastolic 73 mmHg Heart Rate 90 /min O2 % BldC Oximetry 92 % Respiratory Rate 16 /min 12/06/2020 12:40pm Height 71 inches 5'11" Weight 223.00 lb BMI (Body Mass Index) 31.1 kg/m2 Body Temperature 98.5 F BP Systolic 116 mmHg BP Diastolic 70 mmHg Heart Rate 78 /min O2 % BldC Oximetry 90 % Respiratory Rate 16 /min Results Test Acquired Date Facility Test Result H/L Range Note Comprehensive Metabolic Profil 02/26/[address] [address] [phone] Glucose, Fasting 115 mg/dL High 70-100 Blood [...] Albumin/Globulin Ratio 1.2 Normal Lipid Panel 02/26/[address] [address] [phone] Triglycerides Level 154 mg/dL High <150 Cholesterol Level 174 mg/dL Normal <200 HDL Cholesterol 51 mg/dL Normal >40 LDL Cholesterol 92 mg/dL Normal <100 Non-HDL-C 123 mg/dL Normal Cholesterol Risk Ratio 3.411 Normal <5 Laboratory test finding 02/26/[address] [address] [phone] Prostatic Specific Ag Monitor 0.01 NG/ML Normal < 4.00 2 FT4&TSH Panel 02/26/[address] [address] [phone] Thyroid Stimulating Hormone 2.000 uIU/ML Normal 0. 358-3.740 Free T4 0.47 ng/dL Low 0.76-1.46 Basic Metabolic Profile 02/26/[address] [address] [phone] Glucose, Fasting 113 mg/dL High 70-100 Blood [...] mg/dL Normal 8.8-10.2 Laboratory test finding 02/26/[address] [address] [phone] PSA Screening 0.02 NG/ML Normal < 4.00 4 CBC With Differential 02/26/[address] [address] [phone] White Blood Count 4.3 10 Normal 4.0-10.0 [...] 36.0-66.0 Lymph % 36.9 % Normal 24.0-44.0 [place] % 8.9 % High 2.0-8.0 Eos % 7.9 % High 0.0-3.0 Baso % 0.7 % Normal 0.0-1.0 Immature Granulocyte % 0.2 % Normal 0-3.0 Nucleated Red Blood Cell % 0.0 % Normal 0-0 Neutrophils # 1.9 10 Normal 1.5-8.5 Lymph # 1.6 10 Normal 1.5-5.0 [place] # 0.4 10 Normal 0.0-0.8 Eos # 0.3 10 Normal 0.0-0.5 Baso # 0.0 10 Normal 0.0-0.2 Ua Routine 01/17/2021 [address] [place] [address] [phone] Appearance, Urine CLOUDY High Clear Color, Urine YELLOW Normal Yellow PH,Urine 7.0 units Normal 5.0-9.0 Specific [place] Urine Auto 1.016 Normal 1.002-1.035 Protein, Urine [...] /LPF Normal 0-1 Laboratory test finding 01/17/2021 [facility] [id number] [phone] Urine Culture FULL REPORT IN L <SEE NOTE> Normal 5 Laboratory test finding 11/22/2020 [address] [place] [address] [phone] Ammonia 21 uMOL/L Normal <32 Laboratory test finding 11/22/2020 [facility] [address] [place] [address] [phone] Phenytoin (Dilantin) 18.3 UG/ML Normal 10.0-20.0 Phenobarbital Level 32.8 UG/ML Normal 15.0-40.0 Levetiracetam (Keppra) 27.6 ug/mL Normal 10.0-40.0 6 Lamotrigine (Lamictal) 6.5 ug/mL Normal 2.0-20.0 7 Comprehensive Metabolic Profil 11/22/[address] 4374179 [phone] Glucose, Fasting 100 mg/dL Normal 70-100 Blood [...] Ratio 1.4 Normal CBC With Differential 11/22/[address] [address] [phone] White Blood Count 4.7 10 Normal 4.0-10.0 [...] 36.0-66.0 Lymph % 37.4 % Normal 24.0-44.0 [place] % 10.8 % High 2.0-8.0 Eos % 7.3 % High 0.0-3.0 Baso % 0.6 % Normal 0.0-1.0 Immature Granulocyte % 0.4 % Normal 0-3.0 Nucleated Red Blood Cell % 0.0 % Normal 0-0 Neutrophils # 2.0 10 Normal 1.5-8.5 Lymph # 1.7 10 Normal 1.5-5.0 [place] # 0.5 10 Normal 0.0-0.8 Eos # 0.3 10 Normal 0.0-0.5 Baso # 0.0 10 Normal 0.0-0.2 CBC With Differential 09/27/[address] [address] [phone] White Blood Count 4.9 10 Normal 4.0-10.0 [...] 36.0-66.0 Lymph % 27.0 % Normal 24.0-44.0 [place] % 9.3 % High 2.0-8.0 Eos % 6.5 % High 0.0-3.0 Baso % 0.8 % Normal 0.0-1.0 Immature Granulocyte % 0.0 % Normal 0-3.0 Nucleated Red Blood Cell % 0.0 % Normal 0-0 Neutrophils # 2.8 10 Normal 1.5-8.5 Lymph # 1.3 10 Low 1.5-5.0 [place] # 0.5 10 Normal 0.0-0.8 Eos # 0.3 10 Normal 0.0-0.5 Baso # 0.0 10 Normal 0.0-0.2 Comprehensive Metabolic Profil 09/27/[address] [address] [phone] Glucose, Fasting 106 mg/dL High 70-100 Blood [...] Albumin/Globulin Ratio 1.3 Normal Lipid Panel 09/27/[address] [address] [phone] Triglycerides Level 109 mg/dL Normal <150 Cholesterol Level 156 mg/dL Normal <200 HDL Cholesterol 56 mg/dL Normal >40 LDL Cholesterol 78 mg/dL Normal <100 Non-HDL-C 100 mg/dL Normal Cholesterol Risk Ratio 2.785 Normal <5 FT4&TSH Panel 09/27/[address] [address] [phone] Thyroid Stimulating Hormone 2.130 uIU/ML Normal 0. 358-3.740 Free T4 0.48 ng/dL Low 0.76-1.46 Hemoglobin A1c 09/27/[address] [address] [phone] Hemoglobin A1c 5.7 % Normal 10 Estimated Average Glucose 117 mg/dL High 60-110 Laboratory test finding 09/27/[address] [address] [phone] Ammonia 22 uMOL/L Normal <32 Phenytoin (Dilantin) 19.7 UG/ML Normal 10.0-20.0 Phenobarbital Level 33.4 UG/ML Normal 15.0-40.0 Levetiracetam (Keppra) 21.1 ug/mL Normal 10.0-40.0 11 Lamotrigine (Lamictal) 6.5 ug/mL Normal 2.0-20.0 12 Urine Culture 09/12/[address] [address] [phone] Urine Culture FULL REPORT IN L <SEE NOTE> Normal 13 Ua Routine 09/12/[address] [address] [phone] Appearance, Urine CLOUDY High Clear Color, Urine YELLOW Normal Yellow PH,Urine 7.0 units Normal 5.0-9.0 Specific [place] Urine Auto 1.019 Normal 1.002-1.035 Protein, Urine [...] GFR Left ESRD GFR <15 on DIRECTOR SEARCH 2 The PSA assay is performed o n the iLogon [place] analyzer by [employer] sandwich chemiluminescent immunoassay and should not be [...] GFR Left ESRD GFR <15 on DIRECTOR SEARCH 4 The PSA assay is performed o n the iLogon [place] analyzer by BioWizard sandwich chemiluminescent immunoassay and should not be [...] developed and its performance characteristics determined by [employer]. It has not been cleared or approved by the Food and Drug Administration. 7 Detection Limit = 1.0 Performed at: [facility] [employer] [id number] Sports Writer: Nomi Barrett MD, Phone: [phone] Units are mL/min/1.73 m2 Chronic Kidney Disease Staging per NKF: Stage I & II GFR >=60 Normal to Mildly Decreased Stage III GFR 30-59 Moderately Decreased Stage IV GFR 15-29 Severely Decreased Stage V GFR <15 Very Little GFR Left ESRD GFR <15 on DIRECTOR SEARCH 9 Units are mL/min/1.73 m2 Chronic Kidney Disease Staging per NKF: Stage I & II GFR >=60 Normal to Mildly Decreased Stage III GFR 30-59 Moderately Decreased Stage IV GFR 15-29 Severely Decreased Stage V GFR <15 Very Little GFR Left ESRD GFR <15 on DIRECTOR SEARCH 10 REFERENCE RANGES: <=5.6% NORMAL 5.7-6.4% SUGGESTS IMPAIRED GLUCOSE META BOLISM/PREDIABETIC >= 6.5% ABNORMAL 11 This test was developed and its performance characteristics determined by [employer]. It has not been cleared or approved by the Food and Drug Administration. 12 Detection Limit = 1.0 Performed at: [facility] [address] [id number] 61 Sports Writer: Nomi Barrett MD, Phone: [phone] FULL REPORT IN LAB NOTES ([facility]C W [facility]). NO GROWTH CLINICAL SIGNIFICANCE 1 ORGANISM Procedures Date Code Description Status 03/08/2021 07240 Office/Outpatient Established Mo d MDM 30-39 Min Completed 03/08/2021 78343 Office/Outpatient Established Lo w MDM 20-29 Min Completed 01/11/2021 25126 Office/Outpatient Established Lo w MDM 20-29 Min Completed Encounters Type Date Location Provider Dx Diagnosis Office Visit 03/08/2021 10:30a [facility] JEANA Boyce R04.0 Epistaxis I10 Essential (primary) hyperten brian E78.5 Hyperlipidemia, unspecified Z00.00 Encntr for general adult med ical exam w/o abnormal findings F02.81 Dementia in oth diseases cla ssd elswhr w behavioral disturb R53.1 Weakness Office Visit 01/11/2021 2:00p [facility] JEANA James I10 Essential (primary) hyperten brian E78.5 Hyperlipidemia, unspecified G40.89 Other seizures Office Visit 12/06/2020 10:00a [facility] JEANA James Z00.00 Encntr for general adult med ical exam w/o abnormal findings I10 Essential (primary) hyperten brian E78.5 Hyperlipidemia, unspecified Assessments Date Code Description Provider 03/08/2021 R04.0 Epistaxis JEANA Metcalf 03/08/2021 I10 Essential (primary) hypertension JEANA Metcalf 03/08/2021 E78.5 Hyperlipidemia, unspecified Tayl or JEANA Aguilar 03/08/2021 Z00.00 Encounter for genera l adult medical examination without abnormal findings EJANA Metcalf 03/08/2021 F02.81 Dementia in other di seases classified elsewhere with behavioral disturbance JEANA Metcalf 03/08/2021 R53.1 Weakness JEANA Metcalf 01/11/2021 I10 Essential (primary) hypertension JEANA Tavarez 01/11/2021 E78.5 Hyperlipidemia, unspecified Lawrence Lozano, JEANA 01/11/2021 G40.89 Other seizures JEANA Jacobson 12/06/2020 Z00.00 Encounter for genera l adult medical examination without abnormal findings JEANA Tavarez 12/06/2020 I10 Essential (primary) hypertension JEANA Tavarez 12/06/2020 E78.5 Hyperlipidemia, unspecified JEANA Rothman Plan of Treatment Future Appointment(s):* 06/08/2021 10:30 am - JEANA Metcalf at [facility] * 12/07/2021 10:00 am - JEANA Tavarez at [facility] 03/08/2021 - JEANA Metcalf* R04.0 Epistaxis* Comments:* Has had numerous occasions where pt has experience epistaxis. Recently had to go to ED due to inability of house to control bleeding. Health nurse healthcare manager with patient states father has same issues. At this time not experiencing any acute problems with epistaxis. Advised to use routine nasal saline to prevent drying of nasal passages, use humidifier while sleeping and avoid nasal trauma. Would like a ti baires for ENT for further evaluation. * Referral:* [facility], * I10 Essential (primary) hypertension* Comments:* BP at goal. Continue regimen. * E78.5 Hyperlipidemia, unspecified* Comments:* abs reviewed. Continue Simvastatin 20 mg QD * Z00.00 Encounter for general adult medical examination without abnormal findings* Comments:* No abnormal findings. Paper filled out for house. 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 No changes to medications today. * R53.1 Weakness* Comments:* Left sided intermittent weakness. Advised aide that if that happen she should be evaluated in ED as he can be having TIA or other ischemic/embolic events. The only way to know is with imagining. Advised her to continue keeping a log of these events and report to neurologists. * All * New Medication:* Lamotrigine 200 mg - 1 tab every evening * Fleet Enema 7-19 GM/118ML - as needed * Dulcolax Suppositories - one suppository day 4 of no bowel movements * Milk Of Magnesia 400 mg/5ML - 30 milliliters by mouth day 3 of no bowel movement * Aveeno Anti-Itch 1-3 % - apply prn for skin itching * Levetiracetam 500 mg - 3 tabs by mouth twice a day * Lactulose 10 GM/15ML - 20ml by mouth twice a day * Hydroxyzine HCL 50 mg - 1 tab by mouth twice a day * Clobazam 10 mg - 1/2 tab by mouth twice a day * Comments:* Reviewed need to get MOLST order in place. Aide will relay message to father. Advised aide to have family call with questions and that they should come to next appointment to fill out form. Referrals Refer to Dr Henderson for Referral Status Appt Date [facility] - ENT Has had numerous occasions w here pt has experience epistaxis. Recently had to go to ED due to inability of house to control bleeding. Health nurse healthcare manager with patient states father has same issues. At this time not experiencing any acute problems with epistaxis. Advised to use routine nasal saline to prevent drying of nasal passages, use humidifier while sleeping and avoid nasal trauma. Please see and treat. Closed /0000 [address] [place] [address] [phone]
--- OUTSIDE RECORDS SUMMARY | 2021-03-14 09:04 | CCD | Continuity of Care Document ---
Author Organization Unknown Address Unknown Phone Unavailable Care Team Providers Care Emergency Physician Name Role Phone Ruy Jones AUTM [phone] Ruy Jones AUTM [phone] Social History Type Date Description Comments Sex [...] JEANA Tavarez Vitamin D3 Ultra Potency 1.25mg (76006 Ut) Tablets take one tablet by mouth weekly with food bottle 12tabs JEANA Tavarez 02/23/2021 Oyster Shell Calcium W/D [id number] Tablets take one tablet by mouth @12pm [...] one tablet by mouth twice daily Unknown 00/0 Immunizations CPT Code Status Date Vaccine Lot # [id number] Given 03/03/2008 Flu Injection Vital Signs Date [...] H/L Range Note Comprehensive Metabolic Profil 02/26/[address] [id number] [phone] Glucose, Fasting 115 mg/dL High 70-100 Blood [...] Albumin/Globulin Ratio 1.2 Normal Lipid Panel 02/26/[address] [id number] [phone] Triglycerides Level 154 mg/dL High <150 Cholesterol Level 174 mg/dL Normal <200 HDL Cholesterol 51 mg/dL Normal >40 LDL Cholesterol 92 mg/dL Normal <100 Non-HDL-C 123 mg/dL Normal Cholesterol Risk Ratio 3.411 Normal <5 Laboratory test finding 02/26/[address] [address] [phone] Prostatic Specific Ag Monitor 0.01 NG/ML Normal < 4.00 2 FT4&TSH Panel 02/26/2021 [id number] [phone] Thyroid Stimulating Hormone 2.000 uIU/ML Normal 0. 358-3.740 Free T4 0.47 ng/dL Low 0.76-1.46 Basic Metabolic Profile 02/26/[address] [address] [phone] Glucose, Fasting 113 mg/dL High 70-100 Blood [...] mg/dL Normal 8.8-10.2 Laboratory test finding 02/26/[address] [address] [phone] PSA Screening 0.02 NG/ML Normal < 4.00 4 CBC With Differential 02/26/[address] [address] [phone] White Blood Count 4.3 10 Normal 4.0-10.0 [...] 36.0-66.0 Lymph % 36.9 % Normal 24.0-44.0 [place] % 8.9 % High 2.0-8.0 Eos % 7.9 % High 0.0-3.0 Baso % 0.7 % Normal 0.0-1.0 Immature Granulocyte % 0.2 % Normal 0-3.0 Nucleated Red Blood Cell % 0.0 % Normal 0-0 Neutrophils # 1.9 10 Normal 1.5-8.5 Lymph # 1.6 10 Normal 1.5-5.0 [place] # 0.4 10 Normal 0.0-0.8 Eos # 0.3 10 Normal 0.0-0.5 Baso # 0.0 10 Normal 0.0-0.2 Ua Routine 01/17/[address] [address] [phone] Appearance, Urine CLOUDY High Clear Color, Urine YELLOW Normal Yellow PH,Urine 7.0 units Normal 5.0-9.0 Specific [place] Urine Auto 1.016 Normal 1.002-1.035 Protein, Urine [...] /LPF Normal 0-1 Laboratory test finding 01/17/2021 [address] [place] [address] [phone] Urine Culture FULL REPORT IN L <SEE NOTE> Normal 5 Laboratory test finding 11/22/2020 [address] [place] [address] [phone] Ammonia 21 uMOL/L Normal <32 Laboratory test finding 11/22/2020 [address] [place] [address] [phone] Phenytoin (Dilantin) 18.3 UG/ML Normal 10.0-20.0 Phenobarbital Level 32.8 UG/ML Normal 15.0-40.0 Levetiracetam (Keppra) 27.6 ug/mL Normal 10.0-40.0 6 Lamotrigine (Lamictal) 6.5 ug/mL Normal 2.0-20.0 7 Comprehensive Metabolic Profil 11/22/[address] [address] [phone] Glucose, Fasting 100 mg/dL Normal 70-100 Blood [...] Ratio 1.4 Normal CBC With Differential 11/22/[address] [address] [phone] White Blood Count 4.7 10 Normal 4.0-10.0 [...] 36.0-66.0 Lymph % 37.4 % Normal 24.0-44.0 [place] % 10.8 % High 2.0-8.0 Eos % 7.3 % High 0.0-3.0 Baso % 0.6 % Normal 0.0-1.0 Immature Granulocyte % 0.4 % Normal 0-3.0 Nucleated Red Blood Cell % 0.0 % Normal 0-0 Neutrophils # 2.0 10 Normal 1.5-8.5 Lymph # 1.7 10 Normal 1.5-5.0 [place] # 0.5 10 Normal 0.0-0.8 Eos # 0.3 10 Normal 0.0-0.5 Baso # 0.0 10 Normal 0.0-0.2 CBC With Differential 09/27/[address] [address] [phone] White Blood Count 4.9 10 Normal 4.0-10.0 [...] 36.0-66.0 Lymph % 27.0 % Normal 24.0-44.0 [place] % 9.3 % High 2.0-8.0 Eos % 6.5 % High 0.0-3.0 Baso % 0.8 % Normal 0.0-1.0 Immature Granulocyte % 0.0 % Normal 0-3.0 Nucleated Red Blood Cell % 0.0 % Normal 0-0 Neutrophils # 2.8 10 Normal 1.5-8.5 Lymph # 1.3 10 Low 1.5-5.0 [place] # 0.5 10 Normal 0.0-0.8 Eos # 0.3 10 Normal 0.0-0.5 Baso # 0.0 10 Normal 0.0-0.2 Comprehensive Metabolic Profil 09/27/[address] [address] [phone] Glucose, Fasting 106 mg/dL High 70-100 Blood [...] Albumin/Globulin Ratio 1.3 Normal Lipid Panel 09/27/[address] [address] [phone] Triglycerides Level 109 mg/dL Normal <150 Cholesterol Level 156 mg/dL Normal <200 HDL Cholesterol 56 mg/dL Normal >40 LDL Cholesterol 78 mg/dL Normal <100 Non-HDL-C 100 mg/dL Normal Cholesterol Risk Ratio 2.785 Normal <5 FT4&TSH Panel 09/27/[address] [address] [phone] Thyroid Stimulating Hormone 2.130 uIU/ML Normal 0. 358-3.740 Free T4 0.48 ng/dL Low 0.76-1.46 Hemoglobin A1c 09/27/[address] [address] [phone] Hemoglobin A1c 5.7 % Normal 10 Estimated Average Glucose 117 mg/dL High 60-110 Laboratory test finding 09/27/[address] [address] [phone] Ammonia 22 uMOL/L Normal <32 Phenytoin (Dilantin) 19.7 UG/ML Normal 10.0-20.0 Phenobarbital Level 33.4 UG/ML Normal 15.0-40.0 Levetiracetam (Keppra) 21.1 ug/mL Normal 10.0-40.0 11 Lamotrigine (Lamictal) 6.5 ug/mL Normal 2.0-20.0 12 Urine Culture 09/12/[address] 3226061 [phone] Urine Culture FULL REPORT IN L <SEE NOTE> Normal 13 Ua Routine 09/12/[address] [address] [phone] Appearance, Urine CLOUDY High Clear Color, Urine YELLOW Normal Yellow PH,Urine 7.0 units Normal 5.0-9.0 Specific [place] Urine Auto 1.019 Normal 1.002-1.035 Protein, Urine [...] Little GFR Left ESRD GFR <15 on SOCIAL WORKER DELINQUENCY PREVENTION 2 The PSA assay is performed o n the Siemens [place] analyzer by [employer] sandwich chemiluminescent immunoassay and [...] Little GFR Left ESRD GFR <15 on SOCIAL WORKER DELINQUENCY PREVENTION 4 The PSA assay is performed o n the Siemens [place] analyzer by [employer] sandwich chemiluminescent immunoassay and [...] developed and its performance characteristics determined by [facility]. It has not been cleared or approved by the Food and Drug Administration. 7 Detection Limit = 1.0 Performed at: [address] [id number] Rn Utilization Management Um: Nomi Barrett MD, Phone: [phone] Units are mL/min/1.73 m2 Chronic Kidney Disease Staging per NKF: Stage I & II GFR >=60 Normal to Mildly Decreased Stage III GFR 30-59 Moderately Decreased Stage IV GFR 15-29 Severely Decreased Stage V GFR <15 Very Little GFR Left ESRD GFR <15 on SOCIAL WORKER DELINQUENCY PREVENTION 9 Units are mL/min/1.73 m2 Chronic Kidney Disease Staging per NKF: Stage I & II GFR >=60 Normal to Mildly Decreased Stage III GFR 30-59 Moderately Decreased Stage IV GFR 15-29 Severely Decreased Stage V GFR <15 Very Little GFR Left ESRD GFR <15 on SOCIAL WORKER DELINQUENCY PREVENTION 10 REFERENCE RANGES: <=5.6% NORMAL 5.7-6.4% SUGGESTS IMPAIRED GLUCOSE META BOLISM/PREDIABETIC >= 6.5% ABNORMAL 11 This test was developed and its performance characteristics determined by [facility]. It has not been cleared or approved by the Food and Drug Administration. 12 Detection Limit = 1.0 Performed at: [facility] [id number] 61 Rn Utilization Management Um: Nomi Barrett MD, Phone: [phone] FULL REPORT IN LAB NOTES (eC W and [facility]). NO GROWTH CLINICAL SIGNIFICANCE 1 ORGANISM Procedures Date Code Description Status 01/11/2021 [address] Office/Outpatient Established Lo w MDM 20-29 Min Completed Encounters Type Date Location Provider Dx Diagnosis Office Visit 01/11/2021 2:00p [facility] JEANA James I10 Essential (primary) hyperten brian E78.5 Hyperlipidemia, unspecified G40.89 Other seizures Office Visit 12/06/2020 10:00a [facility] JEANA James Z00.00 Encntr for general adult [...] 03/08/2021 10:30 am - JEANA Tavarez at [facility] * 12/07/2021 10:00 am - JEANA Tavarez at [facility]
--- OUTSIDE RECORDS SUMMARY | 2021-03-14 09:05 | CCD | Summary of Care ---
Author Author [facility] Address Unknown Phone Unavailable Care Team Providers Care Impregnator Helper Name Role Phone Ramandeep Lozano PCP [phone] Reason for Visit * Reason Comments Fever * Auth/Cert Referred By Contact Referred To Contact Status Reason Specialty Diagnoses / Procedures Diagnoses Right lower lobe pulmonary infiltrate Seizures Encounter Details Care Team Description Date Type Department Ceasar Paniagua MD [address] [place] [address] [phone] Flaco Gil, RONNY [address] [place] [address] [phone] Colin Garrido MD [address] [facility] [address] [place] [address] [phone] Contreras Man MD [address] [place] [address] 4th [address] [place] [address] [phone] Right lower lobe pulmonary infiltrate (P rimary Dx); Nonintractable epilepsy without status epilepticus, unspecified epilepsy type; Fever, unspecified fever cause; Hypertension, essential; Unspecified intellectual disabilities; Obesity, unspecified classification, unspecified obesity type, unspecified whether serious comorbidity present; Normocytic anemia; COVID-19 ruled out 12/28/[address] NEUROSURGERY - Encounter [address] [facility] 01/03/2021 [place] [address] Allergies Comments Active Allergy Reactions Severity Noted Date Adhesive Tape 12/28/2020 Asenapine 12/28/2020 Felbamate 12/28/2020 Haloperidol 12/28/2020 Lurasidone 12/28/2020 documented as of this encounter (statuses as of 01/03/2021) Medications End Date Status Medication Sig Dispensed Refills Start Date Active Magnesium Hydroxide 400 Take 30 mLs 0 MG/5ML Oral Suspension by mouth (MILK OF MAGNESIA) daily as needed for ConstipationO n day 3 of no bowl movement. Active Bisacodyl [address] 10 mg 0 Suppository (DULCOLAX) rectally On day 4 of no bowl movement. Active Fleet Enema 7-19 GM/118ML Place 133 mLs 0 Rectal Enema rectally daily as needed for ConstipationO n day 5 of no bowl movement. Active levETIRAcetam 500 MG Oral Take 1,500 mg 0 Tablet (KEPPRA) by mouth Two Times Daily Active QUEtiapine Fumarate 50 MG Take 50 mg by 0 Oral Tablet (SEROquel) mouth Two Times Daily Active QUEtiapine Fumarate 300 Take 300 mg 0 MG Oral Tablet (SEROquel) by mouth Two Times Daily Active Calcium Carbonate-Vitamin Take 1 tablet 0 D 500-200 MG-UNIT Oral by mouth Two Tablet (OSCAL-500) Times Daily Active Senna 8.6 MG Oral Tablet Take 2 0 tablets by mouth nightly Active Phenytoin Sodium Extended Take 100 mg 0 100 MG Oral Capsule by mouth Two (Dilantin) Times Daily Active Simvastatin 20 MG Oral Take 20 mg by 0 Tablet (ZOCOR) mouth nightly Active traZODone HCl 100 MG Oral Take 200 mg 0 Tablet (DESYREL) by mouth nightly Active hydrOXYzine HCl 25 MG Take 25 mg by 0 Oral Tablet (ATARAX) mouth Three times daily Active Tamsulosin HCl 0.4 MG Take 0.4 mg 0 Oral Capsule (FLOMAX) by mouth daily Active Prazosin HCl 1 MG Oral Take 1 mg by 0 Capsule (MINIPRESS) mouth nightly Active PHENobarbital 64.8 MG Take 64.8 mg 0 Oral Tablet (LUMINAL) by mouth Two Times Daily Active lamoTRIgine (LAMICTAL) Take 400 mg 0 200 MG tablet by mouth nightly Active Polyethylene Glycol 3350 Take 17 g by 0 17 GM Oral Packet mouth Two (MIRALAX) Times Daily Please substitute bottle for packets, if packets are unavailable. Active Lactulose 10 GM/15ML Oral Take 20 mLs 0 Solution (CHRONULAC) by mouth Two Times Daily Active linaCLOtide 290 MCG Oral Take 290 mcg 0 Capsule (LINZESS) by mouth daily Active Fluticasone Propionate 50 2 sprays by 0 MCG/ACT Nasal Suspension Nasal route (FLONASE) daily Active Vitamin D Take 50,000 0 (Ergocalciferol) 1.25 MG Units by (88675 UT) Oral Capsule mouth every 7 (ERGOCALCIFEROL) (seven) days Active lamoTRIgine 200 MG Oral Take 200 mg 0 Tablet (LaMICtal) by mouth every morning Active PARoxetine HCl 20 MG Oral Take 20 mg by 0 Tablet (PAXIL) mouth every morning Take with 40 mg dose in the morning to equal 60 mg daily Active PARoxetine HCl 40 MG Oral Take 40 mg by 0 Tablet (PAXIL) mouth every morning Take with 20 mg dose in the morning to equal 60 mg daily Active hydrOXYzine HCl 25 MG Take 25 mg by 0 Oral Tablet (ATARAX) mouth as needed for Itching 02/02/2021 Active cloBAZam 10 MG Oral Take 0.5 60 tablet 1 Tablet (ONFI) tablets by 1 mouth Two Times Daily , Max Daily Dose: 10 mg 01/05/2021 Active levoFLOXacin 750 MG Oral Take 1 tablet 1 tablet 0 Tablet (LEVAQUIN) by mouth 1 daily for 1 dose 01/02/2021 Discontinued (Stop Taking at Discharge) Phenytoin Sodium Extended Take 100 mg 0 100 MG Oral Capsule by mouth as (DILANTIN) needed 01/03/2021 Discontinued cloBAZam 10 MG Oral Take 0.5 60 tablet 0 Tablet (ONFI) tablets by 1 mouth Two Times Daily , Max Daily Dose: 10 mg 01/03/2021 Discontinued (Reorder) levoFLOXacin 750 MG Oral Take 1 tablet 3 tablet 0 Tablet (LEVAQUIN) by mouth 1 daily for 3 days 01/03/2021 Discontinued (Reorder) levoFLOXacin 750 MG Oral Take 1 tablet 1 tablet 0 Tablet (LEVAQUIN) by mouth 1 daily for 1 dose documented as of this encounter (statuses as of 01/03/2021) Active Problems Patient Care Coordination Note [facility]: Nurse Contact- [phone] Earnestine-Nurse Contact: Problem Noted Date Intractable epilepsy 12/30/2020 Right lower lobe pulmonary infiltrate 12/29/2020 Seizures 12/29/2020 documented as of this encounter (statuses as of 01/03/2021) Immunizations Name Administration Dates Next Due documented as of this encounter Social History Date Tobacco Use Types Packs/Day Years Used Never Assessed Sex Assigned at Date Recorded Not on file Date Recorded COVID-19 Exposure Response 12/28/2020 4:40 PM EDT In the last month, have you been in contact with No / Unsure someone who was confirmed or suspected to have Coronavirus / COVID-19? documented as of this encounter Last Filed Vital Signs Reading Time Taken Comments Vital Sign 136/85 01/03/2021 11:18 AM EDT Blood Pressure 66 01/03/2021 11:18 AM EDT Pulse 36.4 C (97.5 F) 01/03/2021 11:18 AM EDT Temperature 18 01/03/2021 11:18 AM EDT Respiratory Rate 96% 01/03/2021 11:18 AM EDT Oxygen Saturation - - Inhaled Oxygen Concentration 101.8 kg (224 lb 6.9 oz) 12/28/2020 7:45 PM EDT Weight 185.4 cm (6' 1") 12/28/2020 7:45 PM EDT Height 29.61 12/28/2020 7:45 PM EDT Body Mass Index documented in this encounter Progress Notes * Manasa Degroot RN - 01/03/2021 4:30 PM EDT Report given to Aaliyah Powell RN via phone and Evon Mcnulty LPN at bedside. Martina walters paperwork reviewed with patient and [facility] staff STUDIO ASSOCIATE. PIV dc'd with site benign. Patient and belongings transported via [facility] staff. * Geovanna Fletcher RN - 01/03/2021 10:18 AM EDT Patient updates reviewed. Patient medically ready for discharge. [facility] nurse Earnestine called this senior technical writer, provided contact information for nurse to call w ith report and she will come to hospital to bead picker patient following to provide transport with the patient's own wheelchair. Contact information given to abhay novak nurse to call report and added. CM updated team on above and need for dischar ge paperwork to be completed. Team updated on the need for a covid test prior to return back to the halfway. CM to continue to follow and available as discha rge needs arise. 12:07pm: CM faxed MAR and discharge orders to [phone] per request from nurse [facility], fa x went through successfully. COVID swab obtained, pending results. * Manasa Marin RN - 01/03/2021 3:48 AM EDT Pt refused 0400 vital signs. made aware. * Geovanna Fletcher RN - 01/02/2021 4:19 PM EDT Patient updates reviewed. Per team, patient is medically ready for discharge. CM spoke to nurse at halfway [facility] Mac at [phone], [facility] as this evening there is no nurse at the facility to assess patient once he arrives.[facility] to notify CM tomorrow AM of transport time. CM to [facility] to follow. * Rocío Caldera, [facility]-SEMI TRUCK DRIVER - 01/02/2021 4:09 PM EDT Speech Language Pathology Acute Care - Diet Modification Encounter Note Admitting Diagnosis: Seizures acute encephalopathy Rehabilitation Precautions/Restrictions: OOB with assist, aspiration precautions, continuous EEG, helmet when OOB due to baseline seizures Goal Review Visit Number: 2 SUBJECTIVE Patient Report: "Mac and cheese" Pain: Patient has no complaints of pain currently. Pain Medication Today: no. OBJECTIVE General Observation: Initially, pt laying on left side, but was able to achieve an upright positioning while on left side. Pt difficult to provide instruction for repositioning, but when initially exhibited difficulty with thin liquid tolerance, pt's positioning was further improved to be upright (flat on back) in bed. Pt seen with items from lunch tray d/t sleeping when first delivered. Bed alarm was on at start of session. Tolerance of Current Diet Texture: Dental soft diet. Thin liquids. No concerns with diet tolerance per nursing and chart review. Discussed with RN regarding nectar thick liquids as pt's baseline diet consistency, per chart, but diet order currently placed for thin liquids. RN reports no coughing or choking with multiple thin liquids throughout breakfast this morning. Consistencies Tested: Various soft solids from lunch tray. Presented via Spoon. Deficits noted in the Oral phase. Munching mastication pattern. Piecemeal swallow. Intermittent diffuse oral residue. Deficits noted in the Pharyngeal phase. Cough x2 with liquid-based solids (mandarin oranges). Thin Liquid. 20 trials presented. Presented via Cup. Free Swallows via Cup. Deficits noted in the Pharyngeal phase. Inconsistent coughing response post trials. Compensatory Strategies: Not tested. Interventions: Dysphagia: Completed ongoing assessment and treatment of oropharyngeal swallow function with facilitation of therapeutic PO trials to determine ability to safely initiate diet advancement with thin liquids and ongoing assessment of safety and tolerance with current diet consistency of soft solids. Clinician provided various assistance with feeding from mod-total assistance and provided moderate cues for safe feeding/swallowing strategies, specifically with reducing bolus size (when pt was self-feeding) and reducing rate. Coordinated plan of care with interdisciplinary team. Education: Mode of education provided: Explanation. Audience: Patient. Education Provided: Diet texture recommendations. Swallowing precautions. Safety. Plan of care. Response: No evidence of learning. ASSESSMENT Response to Visit: The session was tolerated fair, as evidenced by: Pt assessed to inconsistently exhibit overt clinical s/s of intolerance across trials of thin liquids despite strategies and improving positioning. Pt appropriate to downgrade to pt's baseline liquid consistency of nectar thick liquids. Will continue to target. Bed alarm was on at end of session. Call garcia was in patient's reach at end of session. Diet Recommendations: Dental soft diet. [place] thick liquids. Downgrade to ground solids as needed (per pt's baseline). Swallow Precautions/Recommendations: Aspiration Precautions 1:1 Supervision. Assistance with meals. Limit distractions. Keep foods moist. Medication Recommendations: Place in a puree consistency. Pain: Patient has no complaints of pain currently. Changes in or Continuation of Plan of Care: Patient will benefit from continued therapy to achieve planned goals. PLAN Treatment Frequency, Duration and Interventions: Restorative Speech/Language Pathology services recommended for 2x/week for 1 week Recommended Speech Therapy Follow Up: Upon acute care discharge, the following is currently recommended: Return to prior living situation with baseline level of supervision and assistance Visit Number: Today's visit is number 2 Program: Neuro (Therapist may be reached on Vocera) SESSION: Duration: 24 CHARGES: 78507 - CHARGE-FEEDING AND SWALLOWING THERAPY 3 2 Units - NEURO VISIT 1 Units - ORDER - Speech Treatment 1 Units Total treatment minutes: 24.00 Minutes Electronically Signed by: Rocío Caldera MS CCC-SEMI TRUCK DRIVER,JACKIE, SEMI TRUCK DRIVER 01/02/2021 4:20:52 PM * Iglesia Thomas MB - 01/02/2021 3:24 PM EDT General Neurology Progress Note Patient Hemanth Hunt 1955 PCP Ramandeep Lozano PA Length of stay: 4 Days Chief complaint: AMS Subjective No acute events overnight. Patient was seen and examined at the bedside. He appe ars comfortable and responds in a garbled speech. He follows some simple command s. Review of Systems Unable to perform ROS d/t mentation Objective Vital signs in last 24 hours Temp: [36.1 C (97 F)-36.8 C (98.2 F)] 36.8 C (98.2 F) Pulse: [50-74] 61 Resp: [16-18] 18 BP: (119-148)/(69-94) 123/69 SpO2: [91 %-96 %] 94 % O2 Therapy: Room air Neurological Examination: Mental Status: Oriented to hospital(states he is in [facility]). Able to tell his own name. Speech garbled. Follows simple commands. Cranial Nerves: PERRLA, EOMI, no facial asymmetry Motor Examination: Bulk: Normal. No atrophy Antigravity appreciated in 4 extremities. Reflexes: deferred Cerebellar: no truncal ataxia Sensory: deferred Gait: deferred Data Review: Ammonia 57 01/02/21 Lab Results Component Value Date WBC 5.0 12/31/2020 HGB 12.9 (L) 12/31/2020 HCT 37.4 (L) 12/31/2020 MCV 88.7 12/31/2020 PLT 166 12/31/2020 Lab Results Component Value Date ALT 12 12/28/2020 AST 12 12/28/2020 ALKPHOS 123 12/28/2020 TBILI 0.2 12/28/2020 Lab Results Component Value Date CALCIUM 8.8 12/31/2020 Lab Results Component Value Date NA 135 (L) 12/31/2020 K 3.5 12/31/2020 CL 98 12/31/2020 Dilantin Screen (ug/ml) Date Value 12/28/2020 16.4 Phenobarbital (ug/ml) Date Value 12/28/2020 30.2 No results found for: CBMZ Lamotrigine (ug/mL) Date Value 12/28/2020 5.3 Levetiracetam Lvl (ug/mL) Date Value 12/28/2020 19 Ammonia (umol/L) Date Value 01/02/2021 57 01/01/2021 231 (H) No results found for: [id number] Current Medications cloBAZam 5 mg Oral BID enoxaparin 40 mg Subcutaneous Daily lactulose 20 mL Oral BID lamoTRIgine 200 mg Oral Daily lamoTRIgine 400 mg Oral Nightly levETIRAcetam 1,500 mg Oral BID levoFLOXacin 750 mg Oral Daily paroxetine 20 mg Oral Daily paroxetine 40 mg Oral Daily PHENobarbital 64.8 mg Oral BID phenytoin 100 mg Oral BID QUEtiapine 300 mg Oral BID trazodone 200 mg Oral Nightly Imaging and Diagnostic Procedures Routine EEG 01/02/2021 This routine EEG done in the awake and asleep states is abnormal due to : 1) Frequent sharp waves, multifocal, left anterior quadrant and right fronto-filomena tral 2) Frequent runs of high amplitude beta-range discharges in the left hemisphere, at times with spread to the right hemisphere, lasting for 3-4 seconds. The ment ioned discharges at times were followed by 2-3 seconds of generalized attenuatio n and were occasionally associated with arousal, and in the latter case were yenny picious to be ictal in nature. 3) Slow posterior dominant rhythm The above findings are suggestive of a multifocal epilepsy. In addition, there i s evidence suggestive of a mild diffuse encephalopathy, non-specific in etiology . Compared to the last video EEG on 12/30/20 to 12/31/20, today's recording shows some improvement with less frequent and shorter duration of ictal and interictal dis charges. CT Head without Contrast 12/29/2020 1. No acute intracranial hemorrhage or evidence of large acute territorial infa rction. 2. Bifrontal encephalomalacia, left slightly greater than right. Severe cerebellar atrophy. 3. Left parieto-occipital encephalomalacia. 4. Status post FINE ARTS INSTRUCTOR shunt placement with the catheter tip in the right lateral ventricle. Video EEG monitoring 12/30/2020 at 16:43 to 12/31/2020 at11:57 The above findings are suggestive of a multifocal epilepsy. In addition, there i s evidence suggestive of a mild diffuse encephalopathy, non-specific in etiology . 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 Neurosurgery adjusted the FINE ARTS INSTRUCTOR sh unt. Pt continues to have non clinical seizure. Video EEG revealed epileptiform discharges lasting 5 to 7 secondsintermittently, similar to vEEG in 2018. Ro utine EEG today showed some improvement with less frequent and shorter duration of ictal and interictal discharges. Intractable epilepsy s/p corpus callosotomy Nonconvulsive seizures -Patient presented to the outside hospital with seizure activity -video EEG and continues to have epileptiform discharges lasting 5 to 7 seconds intermittently. -Video EEG done in 2018 shows similar seizure activity as current. -his outpatient neurologist that we have spoken to, recommends continuing him on Phenobarbital 64.8 BID, Keppra 1500mg BID, phenytoin ER 100mg BID and Lamictal 2 00mg AM and 400mg PM which is his home regimen. Addedclobazam 5mg BID. - Routine EEG today showed some improvement with less frequent and shorter durat ion of ictal and interictal discharges. Concern for pneumonia -CXR does not show any infiltrates as yet -c/w oral levofloxacin to complete a total of 7 day course of Abx (D 5/7) H/o oligodendroglioma H/o hydrocephalus s/p FINE ARTS INSTRUCTOR shunt -Per neurosx, low suspicion that his shunt is a source of infection -Adjusted the FINE ARTS INSTRUCTOR shunt settings Behavioral health issues Major depressive disorder - c/w home paroxetine 60 mg - c/w quetiapine 300BID - c/w Trazodone DVT Prophylaxis: low molecular weight heparin GI Prophylaxis: Not Indicated Diet: dental soft, thin liquid Code Status: Full Code Estimated Discharge date: 01/03/2021 Certain parts of this note may have been carried over from previous notes to diego brizuela accuracy of patient's pertinent medical history and continuity of care. Th e details were verified and edited as appropriate. Discussed with: Patient was seen, examined and discussed with attending Dr. Magda MD who agr ees with the above assessment and plan. Associated attestation - Contreras Man MD - 01/03/2021 2:45 AM EDT I saw and evaluated the patient. Discussed with the resident and agree with res idents findings as documented in the resident's note. Continue 5-drug regimen of AEDs for seizure. Had hyperammonemia, with some slime ixis seen on exam, with EEG not showing grossly increased seizure burden. Repeat Ammonia level improved.. Slightly somnolent today, though able to exhibit the s jessica cognition as yesterday when paying attention. Per facility, patient saf e fo r discharge tomorrow. Continue levofloxacin for possible pneumonia. Contreras Man MD * Iglesia Thomas MB - 01/01/2021 8:02 AM EDT General Neurology Progress Note Patient Hemanth Hunt 1955 PCP Ramandeep Lozano PA Length of stay: 3 Days Chief complaint: AMS Subjective No acute events overnight. Patient was seen and examined at the bedside. He is s leeping but easily arousedl by verbal stimuli. He appears comfortable. Review of Systems Unable to perform ROS d/t mentation Objective Vital signs in last 24 hours Temp: [36.4 C (97.5 F)-36.9 C (98.4 F)] 36.9 C (98.4 F) Pulse: [65-89] 65 Resp: [18] 18 BP: (130-135)/(75-79) 135/79 SpO2: [94 %-97 %] 95 % O2 Therapy: Room air Neurological Examination: Mental Status: Easily aroused by verbal stimuli, oriented to hospital. Able to tell his own sue payne and his sister's name. Speech garbled. Intermittently follows simple commands. Cranial Nerves: PERRLA, EOMI, no facial asymmetry Motor Examination: Bulk: Normal. No atrophy Antigravity appreciated in 4 extremities. Reflexes: deferred Cerebellar: no truncal ataxia Sensory: deferred Gait: deferred Data Review: Lab Results Component Value Date WBC 5.0 12/31/2020 HGB 12.9 (L) 12/31/2020 HCT 37.4 (L) 12/31/2020 MCV 88.7 12/31/2020 PLT 166 12/31/2020 Lab Results Component Value Date ALT 12 12/28/2020 AST 12 12/28/2020 ALKPHOS 123 12/28/2020 TBILI 0.2 12/28/2020 Lab Results Component Value Date CALCIUM 8.8 12/31/2020 Lab Results Component Value Date NA 135 (L) 12/31/2020 K 3.5 12/31/2020 CL 98 12/31/2020 Dilantin Screen (ug/ml) Date Value 12/28/2020 16.4 Phenobarbital (ug/ml) Date Value 12/28/2020 30.2 No results found for: CBMZ Lamotrigine (ug/mL) Date Value 12/28/2020 5.3 Levetiracetam Lvl (ug/mL) Date Value 12/28/2020 19 Current Medications cloBAZam 5 mg Oral BID enoxaparin 40 mg Subcutaneous Daily lamoTRIgine 200 mg Oral Daily lamoTRIgine 400 mg Oral Nightly levETIRAcetam 1,500 mg Oral BID levoFLOXacin 750 mg Oral Daily paroxetine 20 mg Oral Daily paroxetine 40 mg Oral Daily PHENobarbital 64.8 mg Oral BID phenytoin 100 mg Oral BID QUEtiapine 300 mg Oral BID trazodone 200 mg Oral Nightly Imaging and Diagnostic Procedures CT Head without Contrast 12/29/2020 1. No acute intracranial hemorrhage or evidence of large acute territorial infa rction. 2. Bifrontal encephalomalacia, left slightly greater than right. Severe cerebellar atrophy. 3. Left parieto-occipital encephalomalacia. 4. Status post FINE ARTS INSTRUCTOR shunt placement with the catheter tip in the right lateral ventricle. Video EEG monitoring 12/30/2020 at 16:43 to 12/31/2020 at 11:57 The above findings are suggestive of a multifocal epilepsy. In addition, there i s evidence suggestive of a mild diffuse encephalopathy, non-specific in etiology . Assessment and Plan Hemanth Hunt is a 65 y.o. male with PMH of oligodendroglioma, hydrocephalus s/ p FINE ARTS INSTRUCTOR shunt, pituitary adenoma s/p transsphenoidal resection and intractable epil epsy s/p corpus callosotomy on Keppra phenytoin phenobarbital and lamotrigine wh o presented with altered mental status. Neurosurgery adjusted the FINE ARTS INSTRUCTOR shunt. Pt c ontinues to have non clinical seizure. Video EEG revealed epileptiform discharge s lasting 5 to 7 seconds intermittently, similar to vEEG in 2018. Intractable epilepsy s/p corpus callosotomy Nonconvulsive seizures -Patient presented to the outside hospital with seizure activity -video EEG and continues to have epileptiform discharges lasting 5 to 7 seconds intermittently. -Video EEG done in 2018 shows similar seizure activity as current. -his outpatient neurologist that we have spoken to, recommends continuing him on Phenobarbital 64.8 BID, Keppra 1500mg BID, phenytoin ER 100mg BID and Lamictal 2 00mg AM and 400mg PM which is his home regimen. Added clobazam 5mg BID. Concern for pneumonia -CXR does not show any infiltrates as yet -c/w oral levofloxacin to complete a total of 7 day course of Abx (D 08/02) H/o oligodendroglioma H/o hydrocephalus s/p FINE ARTS INSTRUCTOR shunt -Per neurosx, low suspicion that his shunt is a source of infection -Adjusted the FINE ARTS INSTRUCTOR shunt settings Behavioral health issues Major depressive disorder - c/w home paroxetine 60 mg - c/w quetiapine 300BID - c/w Trazodone DVT Prophylaxis: low molecular weight heparin GI Prophylaxis: Not Indicated Diet: dental soft, thin liquid Code Status: Full Code Estimated Discharge date: 01/02/2021 Certain parts of this note may have been carried over from previous notes to diego brizuela accuracy of patient's pertinent medical history and continuity of care. Th e details were verified and edited as appropriate. Discussed with: Patient was seen, examined and discussed with attending Dr. Contreras Man MD w ho agrees with the above assessment and plan. Associated attestation - Contreras Man MD - 01/01/2021 6:25 PM EDT I saw and evaluated the patient. Discussed with the resident and agree with res idents findings as documented in the resident's note. Agitation improved. Now taking all meds PO. Tolerating new medication, clobazam. From a seizure standpoint, patient ready for discharge. Completing a one-week c ourse of antibiotics (levofloxacin) empirically for possible pneumonia. Safe dis charge cannot be arranged to SNF until tomorrow. Continues to require assistance for ADLs. Contreras Man MD * Raffy Watson - 12/31/2020 2:10 PM EDT Spiritual Care Progress Note [employer] Specialist: Father Addison Akbar Shirley, Ed.D., [facility], Priest Jain Patient Name: Hemanth Hunt Age: 65 y.o. Sex: male Room/Bed: [address] [place] [address] Shirlene Affiliation/Tradition: None Admit Date: 12/28/2020 Referrals: Referral From: Nurse Referral To: Priest Jain Contact Information: [id number] Spiritual Care Assessment Spouse/Significant Other Name/Relationship: None Assessed Need for Visit: Change in Health Status Patient Description: Not Available (for any reason) Spiritual/Cultural/Social Issues Assessment: Nurse was at the door telling Hemanth to answer the phone, he seemed confused but later picked the phone to talk to h is daughter. I could not visit with him but was able to talk with the nurse for empowerment and spiritual support and she was appreciative. Hemanth is still to be visited by Spiritual Care. Spiritual Care Intervention: Staff Consultation, Staff Support, Supportive List ening, Words Of Hope/Pediatric Brochure Spiritual Outcomes - Patient: Not available for assessment Spiritual Outcomes - Family: Not available for assessment Spiritual Care Plan Goals of Care: To assess spiritual care needs and hopes and mobilize spiritual r esources for patients/families/caregivers that support/enhance quality of life r elated to hospitalization. Outcome: unchanged Spiritual Care Follow Up Patient Follow-up Plan: Revisit Family Follow-up Plan: No contact made at this time * Rossy Pacheco MBBS - 12/31/2020 11:52 AM EDT [facility] [place] [address] PATIENT NAME: Hemanth Hunt, DATE OF : 1955 . Primary Care Physician: Ramandeep Lozano PA Current Attending: Contreras Man General Neurology Progress Note: Subjective Patient was seen and assessed this AM.He still has brief 5-6 seconds of epileptiform discharges on vEEG with only subtle movements noted during the e pisodes, likely run of discharges seen on vEEG in 2018. Overall EEG showed impro vement. Objective Physical exam General appearence - appears agitated, flaliling arms and legs this AM requiring 3 nurses to hold him down, put him on restraints Visit Vitals BP 130/75 (BP Location: Left arm, Patient Position: Lying) Pulse 89 Temp 36.7 C (98 F) (Oral) Resp 18 Ht 1.854 m (6' 1") Wt 101.8 kg (224 lb 6.9 oz) SpO2 97% BMI 29.61 kg/m Neurologic exam Mental status - Opens eyes to name call, speech is garbled Cranial nerves -PERRLA, EOM intact, no facial weakness noted Motor exam- Strength - Upper and lower- moving extremities against resistance in all 4. Deep tendon reflexes Right Left Biceps 2+ 2+ Triceps 2+ 2+ Brachioradialis 2+ 2+ Patela 2+ 2+ Ankle 2+ 2+ Plantar Down Down Sensation -Intact to noxious in all 4 extremities Cerebellar - no tremors noted Gait = Not assessed Neglect = Absent Imaging and procedures CT Head without Contrast Result Date: 12/29/2020 CLINICAL INDICATION: Altered mental status. TECHNIQUE: Contiguous axial CT image s of the head were acquired from the base of the skull to the vertex without int ravenous contrast administration. Images were viewed in brain, subdural and bone windows. Automated dose lowering techniques and/or adjustment according to gaye ent size were utilized for this exam. COMPARISON: None available. FINDINGS: Gaye ent is status post right frontal approach FINE ARTS INSTRUCTOR shunt placement with the catheter t ip in the right lateral ventricle. There is no acute intracranial hemorrhage or large territorial infarct. Bifrontal encephalomalacia is noted, left slightly gr eater than right. There is left parieto-occipital encephalomalacia with partial ex vacuo dilatation of the occipital horn of the left lateral ventricle. There i s diffuse cerebral volume loss with commensurate enlargement of ventricles. Scat tered areas of hypoattenuation in the periventricular and subcortical white dexter er is compatible with small vessel ischemic disease. The basal cisterns are with in normal limits. There are no abnormal extra-axial fluid collections. There is no evidence of mass effect or midline shift. There is mucosal thickening of justin ateral maxillary sinuses and scattered ethmoid air cells. The remaining imaged p aranasal sinuses and mastoid air cells are unremarkable. No depressed calvarial fractures; the patient is status post right frontoparietal and left parieto-occi pital craniotomy. The scalp is unremarkable. IMPRESSION: 1. No acute intracranial hemorrhage or evidence of large acute terr itorial infarction. 2. Bifrontal encephalomalacia, left slightly greater than r ight. Severe cerebellar atrophy. 3. Left parieto-occipital encephalomalacia. 4. Status post FINE ARTS INSTRUCTOR shunt placement with the catheter tip in the right lateral vent ricle. XR Chest Frontal Only Result Date: 12/28/2020 PROCEDURE INFORMATION: Exam: XR Chest Exam date and time: 12/28/2020 9:31 PM Age: 65 years old Clinical indication: Other: Hypoxia TECHNIQUE: Imaging protocol: XR of the chest. Views: 1 view. COMPARISON: No relevant prior studies available. F INDINGS: Tubes, catheters and devices: Catheter overlies the right hemithorax. L ungs: Atelectasis and/or early infiltrative changes noted within the right lung base. Pleural spaces: There are no pleural effusions present. Heart/Mediastinum: Unremarkable. No cardiomegaly. Diaphragm: There is nonspecific elevation of the right hemidiaphragm. Bones/joints: The thoracic spine demonstrates mild degener ative changes at multiple levels. IMPRESSION: Atelectasis and/or early infiltrat jose changes noted within the right lung base. There is no evidence of pneumothor ax. THIS DOCUMENT HAS BEEN ELECTRONICALLY SIGNED BY RAMANDEEP ALVARES MD XR Chest Frontal and Lateral Result Date: 12/29/2020 PROCEDURE INFORMATION: Exam: XR Chest Exam date and time: 12/29/2020 6:19 AM Age: 65 years old Clinical indication: Other nonspecific abnormal finding of lung fie ld; Other: Control Board Operator shunt series TECHNIQUE: Imaging protocol: XR of the chest. Views: 2 views. COMPARISON: CR XR CHEST FRONTAL ONLY [id number] PORTABLE 12/28/2020 9:31 PM FI NDINGS: Tubes, catheters and devices: A FINE ARTS INSTRUCTOR shunt is seen with tip coiling in the posterior right upper quadrant. Lungs: Subsegmental atelectasis is noted at the bases. Pleural spaces: Unremarkable. No pleural effusion. No pneumothorax. Hear t/Mediastinum: Unremarkable. No cardiomegaly. Bones/joints: Unremarkable. Intrap eritoneal space: There is no free intraperitoneal air. IMPRESSION: A FINE ARTS INSTRUCTOR shunt is seen with tip coiling in the posterior right upper quadrant. THIS DOCUMENT HAS BEEN ELECTRONICALLY SIGNED BY AVI MARTINO MD XR Skull Complete Result Date: 12/29/2020 PROCEDURE INFORMATION: Exam: XR Skull Exam date and time: 12/29/2020 6:19 AM Age: 65 years old Clinical indication: Other nonspecific abnormal finding of lung fie ld; Other: Control Board Operator shunt series TECHNIQUE: Imaging protocol: XR of the skull. Views: Minimum of 4 views. COMPARISON: 1. CR XR SKULL LIMITED [id number] PORTABLE 12/29/2020 3 [address] HEAD WITHOUT CONTRAST [id number] 12/28/2020 10:50:16 PM FINDINGS: Sinuses: Well aerated. No opacification. Bones/joints: There are bilateral craniotomy d efects. A right frontal ventricular shunt catheter is seen on the lateral view w ith other abandoned shunt connections on the left. The shunt tubing appears to b e intact and has been verified on review of the recent head CT. The course throu gh the neck is best followed on the lateral view. There is no discontinuity iden tified. Soft tissues: Unremarkable. IMPRESSION: There are bilateral craniotomy d efects. A right frontal ventricular shunt catheter is seen on the lateral view w ith other abandoned shunt connections on the left. The shunt tubing appears to b e intact and has been verified on review of the recent head CT. The course throu gh the neck is best followed on the lateral view. There is no discontinuity iden tified. THIS DOCUMENT HAS BEEN ELECTRONICALLY SIGNED BY AVI MARTINO MD XR Skull Limited Result Date: 12/29/2020 PROCEDURE INFORMATION: Exam: XR Skull Exam date and time: 12/29/2020 3:31 AM Age: 65 years old Clinical indication: Other nonspecific abnormal finding of lung fie ld; Other: Focus on shunt valve to confirm settings TECHNIQUE: Imaging protocol: XR of the skull. Views: Less than 4 views. COMPARISON: CT HEAD WITHOUT CONTRAST [id number] 12/28/2020 10:50 PM FINDINGS: Tubes, catheters and devices: The pressure of the FINE ARTS INSTRUCTOR shunt is set at P/L 2.0 best interpreted on image 1. Sinuses: Well aerat ed. No opacification. Bones/joints: No fracture. Soft tissues: Unremarkable. IM PRESSION: The pressure of the FINE ARTS INSTRUCTOR shunt is set at P/L 2.0 best interpreted on jaime ge 1. THIS DOCUMENT HAS BEEN ELECTRONICALLY SIGNED BY AVI MARTINO MD XR Abdomen AP Supine and Lateral View Result Date: 12/29/2020 PROCEDURE INFORMATION: Exam: XR Abdomen Exam date and time: 12/29/2020 6:19 AM Age : [age] years old Clinical indication: Other nonspecific abnormal finding of lung f ield; Other: Control Board Operator shunt series TECHNIQUE: Imaging protocol: XR of the abdomen. Vie ws: 2 Views. Upright and supine views. COMPARISON: CR XR CHEST FRONTAL ONLY [id number] PORTABLE 12/28/2020 9:31 PM FINDINGS: Tubes, catheters and devices: A FINE ARTS INSTRUCTOR shunt i s seen. The tip reaches the right upper quadrant posteriorly. Gastrointestinal t ract: Air-fluid levels are seen throughout mildly prominent large and small tay l which could reflect an ileus. Intraperitoneal space: There is no free intraper itoneal air. Bones/joints: Unremarkable for age. Other findings: There is breath ing on the supine AP exam. IMPRESSION: 1. A FINE ARTS INSTRUCTOR shunt is seen. The tip reaches th e right upper quadrant posteriorly. 2. Air-fluid levels are seen throughout mild ly prominent large and small bowel which could reflect an ileus. THIS DOCUMENT H BEEN ELECTRONICALLY SIGNED BY AVI MARTINO MD Medications Current Facility-Administered Medications Medication Dose Route Frequency Provider Last Rate Last Admin azithromycin in NaCl 0.9 % 250 mL infusion 500 mg 500 mg Intravenous Q24 H MISHA Lloyd 250 mL/hr at 12/30/20 0113 500 mg at 12/30/20 0113 cefTRIAXone (ROCEPHIN) infusion 1 g (premix) 1 g Intravenous Q24H MISHA Lloyd 100 mL/hr at 12/30/20 2337 1 g at 12/30/20 2337 cloBAZam (ONFI) tablet 5 mg 5 mg Oral BID [facility] MISHA Lopez 5 mg at 12/31/20919 enoxaparin sodium (LOVENOX) injection 40 mg 40 mg Subcutaneous Daily MISHA Meek 40 mg at 12/31/20922 lamoTRIgine (LaMICtal) tablet 200 mg 200 mg Oral Daily [facility] MISHA Andrews ra 200 mg at 12/31/20919 lamoTRIgine (LaMICtal) tablet 400 mg 400 mg Oral Nightly [facility] MISHA Chase 400 mg at 12/30/202113 levETIRAcetam (KEPPRA) 1,500 mg in sodium chloride 100 mL (15 mg/mL) infu brian (premix) 1,500 mg Intravenous Q12H MISHA Mendez 400 mL/hr at 1 912 1,500 mg at 12/31/20912 NaCl infusion 0.9 % Intravenous Continuous ShaylaMISHA Kapoor Stopped at 12/30/202121 paroxetine (PAXIL) tablet 20 mg 20 mg Oral Daily [facility] RONNY Lopez BS 20 mg at 12/31/20919 paroxetine (PAXIL) tablet 40 mg 40 mg Oral Daily [facility] RONNY Lopez BS 40 mg at 12/31/20920 PHENobarbital (LUMINAL) injection 60 mg 60 mg Intravenous BID MISHA Brown 0 mL/hr at 12/29/20 1210 60 mg at 12/31/20 0803 phenytoin (DILANTIN) injection 100 mg 100 mg Intravenous Q12H Marilu tom RONNYBS 100 mg at 12/30/202113 QUEtiapine (SEROquel) tablet 300 mg 300 mg Oral BID Marilu LopezRONNYBS 300 mg at 12/31/20919 trazodone (DESYREL) tablet 200 mg 200 mg Oral Nightly Marilu castrejonRONNYBS 200 mg at 12/30/202113 Assessment and plan Hemanth Hunt is a 65 y.o. male with history of oligodendroglioma, hydrocephal us status post FINE ARTS INSTRUCTOR shunt, pituitary adenoma s/p transsphenoidal resection epileps y with hx of corpus callosotomy who is on Keppra phenytoin phenobarbital and morales otrigine comes to the hospital in the setting of altered mental status.Neurosurg mónica was consulted and adjusted the FINE ARTS INSTRUCTOR shunt.However he still continues to have n on clinical seizures, on further history taking, it was noted that the patient h ad runs of epileptiform discharges in video EEG in 2018. The activity seen now on his EEG is likely the same, clinical picture overall shows improvement. 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 -Video EEG done in 2018 shows similar seizure activity as current. -He has an outpatient neurologist that we have spoken to, recommends continuing him on Phenobarbital 64.8 BID, Keppra 1500mg BID, phenytoin ER 100mg BID and Lamictal 2 00mg AM and 400mg PM which is his home regimen added clobazam 5mg BID. -Will switch meds to PO. Concern for aspiration pneumonitis: -CXR does not show any infiltrates as yet -Will change to oral levofloxacin to complete 7 days. ( D 07/02) H/o oligodendroglioma Ho hydrocephalus s/p FINE ARTS INSTRUCTOR shunt -Per neurosx, low suspicion that his shunt is a source of infection -Adjusted the FINE ARTS INSTRUCTOR shunt settings Behavioral health issues Major depressive disorder -Takes paroxetine 60 mg at home will resume -Takes quetiapine 300BID, will resume -On Trazodone, will resume DVT Prophylaxis: low molecular weight heparin GI Prophylaxis: Not Indicated Nutrition: Other (comment): Pureed with thin liquids Code Status: Full Code Disposition: snf The care of this patient was discussed with my attending Dr. Man and the pl an was formulated together. Associated attestation - Contreras Man MD - 12/31/2020 12:51 PM EDT I saw and evaluated the patient. Discussed with the resident and agree with res idents findings as documented in the resident's note. Discussed video EEG with Dr Jauregui, mild improvement, even before clobazam was added. All other home medications have been resumed, switching to all PO medicat ions today. Discontinuing video EEG monitoring, which will also allow for remova l of restraints. Repeat CXR done today for possible pneumonia, imaging and report reviewed. Will complete 7 days of antibiotics, empirically treating for community acquired pneu monia. Will need repeat CXR thereafter per radiologist recommendations. Contreras Man MD * Yoon Zepeda OT - 12/31/2020 8:56 AM EDT Occupational Therapy Acute Care Missed Visit Note Location: Bedside. Attempted to visit patient for therapy, but was unable for the following reasons: Treatment not completed secondary to scheduling conflict. Patient still in 4 point restraints, being fed breakfast by [employer] (Therapist may be reached on [employer]) SESSION: Duration: 0 CHARGES: - CHARGE-IP OT SCHEDULING CONFLICT 1 Units Total treatment minutes: 0.00 Minutes Electronically Signed by: Yoon GUERRIER/Vivian, CSRS, 12/31/2020 8:57:34 AM * Liz Sanders PT - 12/31/2020 8:48 AM EDT Physical Therapy Acute Care Missed Visit Note Location: bedside Attempted to visit patient for therapy, but was unable for the following reasons: Patient remains in 4 point restraints and is being fed breakfast at this time. PT will reattempt pending patient status and scheduling availability. (Therapist may be reached on [employer]) SESSION: Duration: 0 CHARGES: Total treatment minutes: Minutes Electronically Signed by: Liz Sanders PT, DPT, 12/31/2020 8:49:52 AM * Ruy Howard MD - 12/31/2020 7:17 AM EDT Brief Neurosurgery Progress Note No acute neurosurgical intervention at this time. Neurosurgery will sign off. Jeana martinez follows in [place] with a neurosurgeon. Please call with any additional questions or concerns. Ruy Howard MD Neurosurgery PGY1 12/31/20 7:17 AM * Marilu Lopez MBBS - 12/30/2020 4:28 [place] [address] PATIENT NAME: Hemanth Hunt, DATE OF : 1955 . Primary Care Physician: Ramandeep Lozano PA Current Attending: Contreras Man General Neurology Progress Note: Subjective Patient was seen and assessed this AM. He was still having brief 5-6 seconds of epileptiform discharges on vEEG with on ly subtle movements noted during the episodes. He was agitated this AM, and required 4 point restraints. Speech is still garbled and hard to understand, but he does intermittently follo w commands Review of Systems HENT: Negative for congestion, dental problem and drooling. Eyes: Negative for discharge and redness. Cardiovascular: Negative for leg swelling. Gastrointestinal: Negative for abdominal distention. Neurological: Negative for facial asymmetry. Psychiatric/Behavioral: Positive for agitation, behavioral problems and decrease d concentration. Negative for confusion. Objective Physical exam General appearence - appears agitated, flaliling arms and legs this AM requiring 3 nurses to hold him down, put him on restraints Visit Vitals BP 147/84 (BP Location: Left arm, Patient Position: Lying) Pulse 68 Temp 36.9 C (98.4 F) (Oral) Resp 18 Ht 1.854 m (6' 1") Wt 101.8 kg (224 lb 6.9 oz) SpO2 97% BMI 29.61 kg/m Neurologic exam Mental status - Opens eyes to name call, speech is garbled Cranial nerves -PERRLA, EOM intact, no facial weakness noted Motor exam- Strength - Upper and lower- moving extremities against resistance in all 4. Deep tendon reflexes Right Left Biceps 2+ 2+ Triceps 2+ 2+ Brachioradialis 2+ 2+ Patela 2+ 2+ Ankle 2+ 2+ Plantar Down Down Sensation -Intact to noxious in all 4 extremities Cerebellar - no tremors noted Gait = Not assessed Neglect = Absent Imaging and procedures CT Head without Contrast Result Date: 12/29/2020 CLINICAL INDICATION: Altered mental status. TECHNIQUE: Contiguous axial CT image s of the head were acquired from the base of the skull to the vertex without int ravenous contrast administration. Images were viewed in brain, subdural and bone windows. Automated dose lowering techniques and/or adjustment according to gaye ent size were utilized for this exam. COMPARISON: None available. FINDINGS: Gaye ent is status post right frontal approach FINE [employer]S INSTRUCTOR shunt placement with the catheter t ip in the right lateral ventricle. There is no acute intracranial hemorrhage or large territorial infarct. Bifrontal encephalomalacia is noted, left slightly gr eater than right. There is left parieto-occipital encephalomalacia with partial ex vacuo dilatation of the occipital horn of the left lateral ventricle. There i s diffuse cerebral volume loss with commensurate enlargement of ventricles. Scat tered areas of hypoattenuation in the periventricular and subcortical white dexter er is compatible with small vessel ischemic disease. The basal cisterns are with in normal limits. There are no abnormal extra-axial fluid collections. There is no evidence of mass effect or midline shift. There is mucosal thickening of justin ateral maxillary sinuses and scattered ethmoid air cells. The remaining imaged p aranasal sinuses and mastoid air cells are unremarkable. No depressed calvarial fractures; the patient is status post right frontoparietal and left parieto-occi pital craniotomy. The scalp is unremarkable. IMPRESSION: 1. No acute intracranial hemorrhage or evidence of large acute terr itorial infarction. 2. Bifrontal encephalomalacia, left slightly greater than r ight. Severe cerebellar atrophy. 3. Left parieto-occipital encephalomalacia. 4. Status post FINE ARTS INSTRUCTOR shunt placement with the catheter tip in the right lateral vent ricle. XR Chest Frontal Only Result Date: 12/28/2020 PROCEDURE INFORMATION: Exam: XR Chest Exam date and time: 12/28/2020 9:31 PM Age: 65 years old Clinical indication: Other: Hypoxia TECHNIQUE: Imaging protocol: XR of the chest. Views: 1 view. COMPARISON: No relevant prior studies available. F INDINGS: Tubes, catheters and devices: Catheter overlies the right hemithorax. L ungs: Atelectasis and/or early infiltrative changes noted within the right lung base. Pleural spaces: There are no pleural effusions present. Heart/Mediastinum: Unremarkable. No cardiomegaly. Diaphragm: There is nonspecific elevation of the right hemidiaphragm. Bones/joints: The thoracic spine demonstrates mild degener ative changes at multiple levels. IMPRESSION: Atelectasis and/or early infiltrat jose changes noted within the right lung base. There is no evidence of pneumothor ax. THIS DOCUMENT HAS BEEN ELECTRONICALLY SIGNED BY RAMANDEEP ALVARES MD XR Chest Frontal and Lateral Result Date: 12/29/2020 PROCEDURE INFORMATION: Exam: XR Chest Exam date and time: 12/29/2020 6:19 AM Age: 65 years old Clinical indication: Other nonspecific abnormal finding of lung fie ld; Other: Control Board Operator shunt series TECHNIQUE: Imaging protocol: XR of the chest. Views: 2 views. COMPARISON: CR XR CHEST FRONTAL ONLY [id number] PORTABLE 12/28/2020 9:31 PM FI NDINGS: Tubes, catheters and devices: A FINE ARTS INSTRUCTOR shunt is seen with tip coiling in the posterior right upper quadrant. Lungs: Subsegmental atelectasis is noted at the bases. Pleural spaces: Unremarkable. No pleural effusion. No pneumothorax. Hear t/Mediastinum: Unremarkable. No cardiomegaly. Bones/joints: Unremarkable. Intrap eritoneal space: There is no free intraperitoneal air. IMPRESSION: A FINE ARTS INSTRUCTOR shunt is seen with tip coiling in the posterior right upper quadrant. THIS DOCUMENT HAS BEEN ELECTRONICALLY SIGNED BY AVI MARTINO MD XR Skull Complete Result Date: 12/29/2020 PROCEDURE INFORMATION: Exam: XR Skull Exam date and time: 12/29/2020 6:19 AM Age: 65 years old Clinical indication: Other nonspecific abnormal finding of lung fie ld; Other: Control Board Operator shunt series TECHNIQUE: Imaging protocol: XR of the skull. Views: Minimum of 4 views. COMPARISON: 1. CR XR SKULL LIMITED [id number] PORTABLE 12/29/2020 3 [address] HEAD WITHOUT CONTRAST [id number] 12/28/2020 10:50:16 PM FINDINGS: Sinuses: Well aerated. No opacification. Bones/joints: There are bilateral craniotomy d efects. A right frontal ventricular shunt catheter is seen on the lateral view w ith other abandoned shunt connections on the left. The shunt tubing appears to b e intact and has been verified on review of the recent head CT. The course throu gh the neck is best followed on the lateral view. There is no discontinuity iden tified. Soft tissues: Unremarkable. IMPRESSION: There are bilateral craniotomy d efects. A right frontal ventricular shunt catheter is seen on the lateral view w ith other abandoned shunt connections on the left. The shunt tubing appears to b e intact and has been verified on review of the recent head CT. The course throu gh the neck is best followed on the lateral view. There is no discontinuity iden tified. THIS DOCUMENT HAS BEEN ELECTRONICALLY SIGNED BY AVI MARTINO MD XR Skull Limited Result Date: 12/29/2020 PROCEDURE INFORMATION: Exam: XR Skull Exam date and time: 12/29/2020 3:31 AM Age: 65 years old Clinical indication: Other nonspecific abnormal finding of lung fie ld; Other: Focus on shunt valve to confirm settings TECHNIQUE: Imaging protocol: XR of the skull. Views: Less than 4 views. COMPARISON: CT HEAD WITHOUT CONTRAST [id number] 12/28/2020 10:50 PM FINDINGS: Tubes, catheters and devices: The pressure of the FINE ARTS INSTRUCTOR shunt is set at P/L 2.0 best interpreted on image 1. Sinuses: Well aerat ed. No opacification. Bones/joints: No fracture. Soft tissues: Unremarkable. IM PRESSION: The pressure of the FINE ARTS INSTRUCTOR shunt is set at P/L 2.0 best interpreted on jaime ge 1. THIS DOCUMENT HAS BEEN ELECTRONICALLY SIGNED BY AVI MARTINO MD XR Abdomen AP Supine and Lateral View Result Date: 12/29/2020 PROCEDURE INFORMATION: Exam: XR Abdomen Exam date and time: 12/29/2020 6:19 AM Age : [age] years old Clinical indication: Other nonspecific abnormal finding of lung f ield; Other: Control Board Operator shunt series TECHNIQUE: Imaging protocol: XR of the abdomen. August yuen: 2 Views. Upright and supine views. COMPARISON: CR XR CHEST FRONTAL ONLY [id number] PORTABLE 12/28/2020 9:31 PM FINDINGS: Tubes, catheters and devices: A FINE ARTS INSTRUCTOR shunt i s seen. The tip reaches the right upper quadrant posteriorly. Gastrointestinal t ract: Air-fluid levels are seen throughout mildly prominent large and small tay l which could reflect an ileus. Intraperitoneal space: There is no free intraper itoneal air. Bones/joints: Unremarkable for age. Other findings: There is breath ing on the supine AP exam. IMPRESSION: 1. A FINE ARTS INSTRUCTOR shunt is seen. The tip reaches th e right upper quadrant posteriorly. 2. Air-fluid levels are seen throughout mild ly prominent large and small bowel which could reflect an ileus. THIS DOCUMENT H BEEN ELECTRONICALLY SIGNED BY AVI MARTINO MD Medications Current Facility-Administered Medications Medication Dose Route Frequency Provider Last Rate Last Admin azithromycin in NaCl 0.9 % 250 mL infusion 500 mg 500 mg Intravenous Q24 H MISHA Lloyd 250 mL/hr at 12/30/20 0113 500 mg at 12/30/20 0113 cefTRIAXone (ROCEPHIN) infusion 1 g (premix) 1 g Intravenous Q24H MISHA Lloyd 100 mL/hr at 12/30/20 0015 1 g at 12/30/20 0015 enoxaparin sodium (LOVENOX) injection 40 mg 40 mg Subcutaneous Daily RONNY MeekBS 40 mg at 12/30/20 0817 levETIRAcetam (KEPPRA) 1,500 mg in sodium chloride 100 mL (15 mg/mL) infu brian (premix) 1,500 mg Intravenous Q12H MISHA Mendez 400 mL/hr at 1 1006 1,500 mg at 12/30/20 1006 NaCl infusion 0.9 % Intravenous Continuous TeRONNY BainBS 75 mL/hr at 12/30/20 0330 New Bag at 12/30/20 0330 PHENobarbital (LUMINAL) injection 60 mg 60 mg Intravenous BID RONNY BrownBS 0 mL/hr at 12/29/20 1210 60 mg at 12/30/20 1038 phenytoin (DILANTIN) injection 150 mg 150 mg Intravenous Q12H Amy Sing hmar, MBBS 0 mL/hr at 12/29/20 1056 150 mg at 12/30/20 1121 valproate sodium (DEPACON) injection 500 mg 500 mg Intravenous Q8H RONNY LloydBS 40 mL/hr at 12/30/20 0812 500 mg at 12/30/20 0812 Assessment and plan Hemanth Hunt is a 65 y.o. male with history of oligodendroglioma, hydrocephal us status post FINE ARTS INSTRUCTOR shunt, pituitary adenoma s/p transsphenoidal resection epileps y with hx of corpus callosotomy who is on Keppra phenytoin phenobarbital and morales otrigine comes to the hospital in the setting of altered mental status. Neurosurgery was consulted and adjusted the FINE ARTS INSTRUCTOR shunt.However he still continues to have non clinical seizures. Nonconvulsive seizures with history of intractable epilepsy Hx of corpus callosotomy -Patient presented to the outside hospital with seizure activity -He was febrile at 102F at outside hospital, there was a concern for aspiration pneumonitis and was started on ceftriaxone and azithromycin -Currently, he is on video EEG and continues to have epileptiform discharges las ting 5 to 7 seconds with subtle body movements. -Video EEG done in 2018 shows similar seizure activity as current. -He has an outpatient neurologist that we have spoken to, recommends continuing him on Phenobarbital 64.8 BID, Keppra 1500mg BID, phenytoin ER 100mg BID and Lamictal 2 00mg AM and 400mg PM which is his home regimen. And to also add clobazam 5mg BI D. -We will continue video EEG for tonight and plan on discharging tomorrow -At baseline his functional status is poor, he lives in a halfway. On contac ting the halfway,we learned that he does have seizures with a frequency of 1/ month with head turned to the left and body jerking and he does remain confused after. No changes were made to his medications recently. He was however, discon tinued on Klonopin per Psychiatry as they felt it was no longer needed. Concern for aspiration pneumonitis: -CXR does not show any infiltrates as yet -Will continue him on Ceftriaxone/azithromycin for now -Restart his pureed diet with thin liquids H/o oligodendroglioma Ho hydrocephalus s/p FINE ARTS INSTRUCTOR shunt -Per neurosx, low suspicion that his shunt is a source of infection -Adjusted the FINE ARTS INSTRUCTOR shunt settings Behavioral health issues Major depressive disorder -Takes paroxetine 60 mg at home will resume -Takes quetiapine 300BID, will resume -On Trazodone, will resume DVT Prophylaxis: low molecular weight heparin GI Prophylaxis: Not Indicated Nutrition: Other (comment): Pureed with thin liquids Code Status: Full Code Disposition: snf tmrw The care of this patient was discussed with my attending Dr. Man and the pl an was formulated together. Associated attestation - Contreras Man MD - 12/30/2020 8:18 PM EDT I saw and evaluated the patient. Discussed with the resident and agree with res idents findings as documented in the resident's note. > 60 minutes spent on the care of this patient, primarily on coordination of care. Spoke with the patient's SNF, outpatient neurology office, and the patient's sister, Jeanna (HCP). Per these discussions, the patient had mental status changes in approximately Ja n '21, found to have dilantin toxicity. Dose was decreased, and during the medic ation adjustment, clonazepam was also discontinued. 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 In the past, Venancio gordon has noticed very brief staring episodes or dropping objects at least daily, a nd many more unnoticed events may be occurring. However, the halfway has only recorded bigger tonic head-deviation events that are accompanied by a postictal period of unresponsiveness as occurring every few months. Last EEG was in 2018 at [facility] (report in care everywhere) and describes frequent brief runs of activity that may be similar to the very brief seizures we are see ing in this admission. Per outpatient neurologist (called [facility]ie, spoke to Dr Queen, patient sees PA) seizures have been presumed to be well cont rolled, no further EEG have been done since. Therefore, we will resume home medications as mental status now allows PO intake . We will add clobazam in place of previous medication clonazepam. Continue vide o EEG overnight. The patient is nearly at baseline (often nonsensical, sometimes intelligible, usually only repeats). Discharge tomorrow. Possible aspiration pneumonitis/pneumonia, for which he is on ceftraxone/azithro mycin. Will repeat CXR in the morning. No other infection source identified. Men ingitis unlikely. Contreras Man MD * Yoon Zepeda OT - 12/30/2020 2:37 PM EDT Occupational Therapy Acute Care Missed Visit Note Location: Bedside. Attempted to visit patient for therapy, but was unable for the following reasons: Paitent currently agitated and screaming , in four point restraints, not approproate for OT eval at this time (Therapist may be reached on Vocera) SESSION: Duration: 0 CHARGES: Total treatment minutes: Minutes Electronically Signed by: Yoon Zepeda OTR/L, CSRS, 12/30/2020 2:38:42 PM * Liz Sanders, PT - 12/30/2020 2:32 PM EDT Physical Therapy Acute Care Missed Visit Note Location: bedside Attempted to visit patient for therapy, but was unable for the following reasons: Patient agitated and in four point restraints at this time and not appropriate for PT evaluation. PT will reattempt pending patient status and scheduling availability. (Therapist may be reached on Vocera) SESSION: Duration: 0 CHARGES: Total treatment minutes: Minutes Electronically Signed by: Liz Sanders PT, DPT, 12/30/2020 2:36:51 PM * Ita Starks, PharmD - 12/30/2020 2:12 PM EDT Pharmacy Medication History Review Prior to Admission Medications Prescriptions Last Dose Informant Patient Reported? Taking? Bisacodyl 10 MG Rectal Suppository (DULCOLAX) Other Yes Yes Sig: Place 10 mg rectally On day 4 of no bowl movement. Calcium Carbonate-Vitamin D 500-200 MG-UNIT Oral Tablet (OSCAL-500) Other Y es Yes Sig: Take 1 tablet by mouth Two Times Daily Fleet Enema 7-19 GM/118ML Rectal Enema Other Yes Yes Sig: Place 133 mLs rectally daily as needed for ConstipationOn day 5 of no bowl movement. Fluticasone Propionate 50 MCG/ACT Nasal Suspension (FLONASE) Other Yes Yes Si sprays by Nasal route daily Lactulose 10 GM/15ML Oral Solution (CHRONULAC) Other Yes Yes Sig: Take 20 mLs by mouth Two Times Daily Magnesium Hydroxide 400 MG/5ML Oral Suspension (MILK OF MAGNESIA) Other Yes Yes Sig: Take 30 mLs by mouth daily as needed for ConstipationOn day 3 of no bowl m ovement. PARoxetine HCl 20 MG Oral Tablet (PAXIL) Other Yes Yes Sig: Take 20 mg by mouth every morning Take with 40 mg dose in the morning to eq ual 60 mg daily PARoxetine HCl 40 MG Oral Tablet (PAXIL) Other Yes Yes Sig: Take 40 mg by mouth every morning Take with 20 mg dose in the morning to eq ual 60 mg daily PHENobarbital 64.8 MG Oral Tablet (LUMINAL) Other Yes Yes Sig: Take 64.8 mg by mouth Two Times Daily Phenytoin Sodium Extended 100 MG Oral Capsule (DILANTIN) Other Yes Yes Sig: Take 100 mg by mouth as needed Phenytoin Sodium Extended 100 MG Oral Capsule (Dilantin) Other Yes Yes Sig: Take 100 mg by mouth Two Times Daily Polyethylene Glycol 3350 17 GM Oral Packet (MIRALAX) Other Yes Yes Sig: Take 17 g by mouth Two Times Daily Please substitute bottle for packets, if packets are unavailable. Prazosin HCl 1 MG Oral Capsule (MINIPRESS) Other Yes Yes Sig: Take 1 mg by mouth nightly QUEtiapine Fumarate 300 MG Oral Tablet (SEROquel) Other Yes Yes Sig: Take 300 mg by mouth Two Times Daily QUEtiapine Fumarate 50 MG Oral Tablet (SEROquel) Other Yes Yes Sig: Take 50 mg by mouth Two Times Daily Senna 8.6 MG Oral Tablet Other Yes Yes Sig: Take 2 tablets by mouth nightly Simvastatin 20 MG Oral Tablet (ZOCOR) Other Yes Yes Sig: Take 20 mg by mouth nightly Tamsulosin HCl 0.4 MG Oral Capsule (FLOMAX) Other Yes Yes Sig: Take 0.4 mg by mouth daily Vitamin D (Ergocalciferol) 1.25 MG (86744 UT) Oral Capsule (ERGOCALCIFEROL) Other Yes Yes Sig: Take 50,000 Units by mouth every 7 (seven) days hydrOXYzine HCl 25 MG Oral Tablet (ATARAX) Other Yes Yes Sig: Take 25 mg by mouth Three times daily hydrOXYzine HCl 25 MG Oral Tablet (ATARAX) Other Yes Yes Sig: Take 25 mg by mouth as needed for Itching lamoTRIgine (LAMICTAL) 200 MG tablet Other Yes Yes Sig: Take 400 mg by mouth nightly lamoTRIgine 200 MG Oral Tablet (LaMICtal) Other Yes Yes Sig: Take 200 mg by mouth every morning levETIRAcetam 500 MG Oral Tablet (KEPPRA) Other Yes Yes Sig: Take 1,500 mg by mouth Two Times Daily linaCLOtide 290 MCG Oral Capsule (LINZESS) Other Yes Yes Sig: Take 290 mcg by mouth daily traZODone HCl 100 MG Oral Tablet (DESYREL) Other Yes Yes Sig: Take 200 mg by mouth nightly Facility-Administered Medications: None The following medications have been added:all medications were added The following medications have been removed: The following medications have been modified: The patient takes the following medications differently than prescribed: Medication History Source: [facility] - [address] [id number] [facility] The above prior to admission medications have been compared to current inpatient orders. Discrepancies: 1. Multiple home medications not ordered inpatient - Lactulose, paroxetine, praz osin, quetiapine, simvastatin, tamsulosin, hydroxyzine, lamotrigine, linzess, an d trazodone, if clinically appropriate. Recommendations: 1. Consider initiating home medications as listed above, if clinically indicated . Medication history was completed based on information available during this gaye ent encounter, the list above may not be all inclusive. Thank you, Ita Starks PharmD PGY-1 Clinical Law Professor Associated attestation - Emir Garza, PharmD - 12/31/2020 9:20 AM EDT Reviewed and agree with note as written by pharmacy operations manager. Thank you, Emir Garza, PharmD * Liz Sanders PT - 12/30/2020 10:07 AM EDT Physical Therapy Acute Care Missed Visit Note Location: bedside Attempted to visit patient for therapy, but was unable for the following reasons: Patient currently with medical supply technician and RN. PT will reattempt pending patient status and scheduling availability. (Therapist may be reached on Vocera) SESSION: Duration: 0 CHARGES: Total treatment minutes: Minutes Electronically Signed by: Liz Sanders PT, DPT, 12/30/2020 12:26:16 PM * Yoon Zepeda OT - 12/30/2020 10:07 AM EDT Occupational Therapy Acute Care Missed Visit Note Location: Bedside. Attempted to visit patient for therapy, but was unable for the following reasons: Treatment not completed secondary to scheduling conflict. Paitent in with medical supply technician and nursing for an extneded time (Therapist may be reached on Vocera) SESSION: Duration: 0 CHARGES: - CHARGE-IP OT SCHEDULING CONFLICT 1 Units Total treatment minutes: 0.00 Minutes Electronically Signed by: Yoon GUERRIER/Vivian, CSRS, 12/30/2020 10:07:59 AM * Ruy Alvarez DO - 12/30/2020 1:00 AM EDT Images from the original note were not included. [facility] [place] [address] PATIENT NAME: Hemanth Hunt, DATE OF : 1955 . Subjective Date of Encounter: 12/30/2020 Length of stay: 1 days Interval History: seizing on EEG monitoring Current Hospital Problem List: Principal Problem: Right lower lobe pulmonary infiltrate Active Problems: Seizures Objective Vitals Temp: [36.4 C (97.5 F)-37 C (98.6 F)] 36.5 C (97.7 F) Pulse: [68-90] 72 Resp: [16-25] 18 BP: (92-135)/(55-89) 120/78 SpO2: [90 %-100 %] 98 % O2 Therapy: Oxygen O2 Flow Rate (L/min): [2 L/min-4 L/min] 4 L/min Intake/Output Last 3 Completed Shifts I/O last 3 completed shifts: In: 450 [IV Piggyback:450] Out: 1 [Urine:1] Physical Exam General Appearance: NAD Mental status: awake, alert,regards examiiner oriented to person, unable to appr eciate orientation to place or time, 2/2 to patient persverating Language: verbal, perseverates, but intellectually impaired, aphasic, doesn't re liably follow commands Cranial Nerves: PERRL, EOMI, FS, TML Strength: Elevates BUE no drift, Moves BLE Sensation: Sensation grossly intact in all extremities Cerebellar: tremors bilateral UE VPS palpated, right frontal region CDI CEEG headwrap in place Data Review CBC: Recent Labs Lab 12/28/20 2159 WBC 7.1 RBC 4.13* HGB 12.6* HCT 37.3* PLT 148* NEUTOPHILPCT 84 MONOPCT 9 BMP: Recent Labs Lab 12/28/20 2159 NA 139 K 4.4 CL 103 BICARBONATE 25 GLUCOSE 122 BUN 22 CREATININE 0.92 BCR 24 GFRAA >90 GFRNONAA 87 COAGS: No results for input(s): INR in the last 168 hours. Invalid input(s): PT, PTT Assessment/Plan Hemanth Hunt is a 65 y.o. male patient with a hx of right VPS strata at 1 per [facility] documentation for hydrocephalus with hx of left parietal oligodendrogl ioma and pituitary tumor resection with seizures and AMS for the past month pres enting to this hospital with one episode of a fever and seizure Neuro: Neurological exam grossly stable with perseverating speech Shunt series with intact hardware EEG with evidence of seizure activity Outside CT and records to be obtained Blood cultures pending On empiric antibitoics Rest of care per primary team Ruy Alvarez DO Neurosurgery Resident PGY4 Associated attestation - Filippo Fonseca MD - 12/30/2020 7:50 AM EDT I have seen and examined the patient with the resident. I agree with the plan as described. Seen 12/30/20 0730 * Sveta Louie RN - 12/29/2020 4:47 PM EDT Patient arrived from [facility] approx 1530 with 1:1 SACO at bedside. Patient is non-ve rbal and this RN unable to complete admission assessment questions at this time. Annotated image completed. Sveta Louie RN * Sveta Louie RN - 12/29/2020 4:46 PM EDT Images from the original note were not included. If wound was present on admission, this documentation was sent to attending prov ider for cosignature. Associated attestation - Contreras Man MD - 12/29/2020 8:53 PM EDT Acknowledged. * Geovanna Fletcher RN - 12/29/2020 3:51 PM EDT Case Management Screen & Assessment Patient Name: Hemanth Hunt Gender: male Date of : 1955 Admission Dx: Seizures [R56.9] Right lower lobe pulmonary infiltrate [R91.8] Age: 65 y.o. Admission: 12/28/2020 7:49 PM Attending Provider: Contreras Man MD High Risk Criteria - Prior to Admission/Upon Arrival PIANO ACCOMPANIST-Type of Residence: Retirement PIANO ACCOMPANIST- Care Facility Name: unable to assess PIANO ACCOMPANIST- Home Care Services: No Limited Home Supports/Lives Alone?: No Multi trauma/Critical care/Step down admit?: No Head/Spinal cord injury?: No Self Pay: No Multiple ED visits?: No Related/Unplanned readmission within 30 days?: No Complex/New medical issues: Seizures, Acute right lower lobe pulmonary infiltrat e, acute encephalopathy Relevant comorbidities: hydrocephalus s/p vp compliance shunt, epilepsey, mental retardatio n, asthma, copd, htn, osteoporosis, thyroid disease, psa (on CPAP), Depression, pituitary adenoma, olgodendroglioma Psychosocial considerations: depression Screening Outcome Social Work Consult Needed?: Yes No Social Work Consult Order Exists: Place Order Further Case Management Needs?: Case Management Needs Chart Review PCP Verified?: Patient has PCP Prior to Admission: Functional/Environmental Assessment Bathing: Unable to assess Dressing: Unable to assess Toileting: Unable to assess Medication administration: Unable to assess Transfers: Unable to assess Ambulation: Unable to assess Meal preparation: Unable to assess Potential Barriers/Teaching Needs Physical: related to seizures, encephalopathy Case Management Re-Review Case Management Re-Review Needed?: Yes Case Management Re-Review Date: 01/05/21 Discharge Planning Living Arrangements: Other (Comment) (halfway) Support Systems: Other (Comment), Family members (halfway staff) Type of Residence: snf Care Facility Name: unable to assess [facility] this [facility] Patient/family informed of need for discharge planning?: Yes Patient expects to be discharged to:: TBD Note: Patient discussed in multidisciplinary rounds. Patient updates reviewed. P atient currently in hospital for Seizures, Acute right lower lobe pulmonary infi ltrate, acute encephalopathy. Limited screen completed. TC to sister listed on chart, unable to connect with s ister for screen information. SW consult ordered by CM for decision making/HCP. Per chart review, patient from a halfway, unable to assess which halfway a t this time. Anticipate skilled needs by the time of discharge. Discharge plan TBD pending me dical readiness, PT/OT recs. CM to follow and available as discharge needs arise . Geovanna Fletcher RN documented in this encounter H&P Notes * Amy Pizano MBBS - 12/29/2020 12:50 AM EDT History & Physical Patient Hemanth Raymond Ramandeep Martin, JEANA Admission Date 12/28/2020 Chief Complaint/Reason for Admission: Hemanth is coming in today as a transfer from another hospital , for febrile seizur es. Subjective History of Presenting Illness Patient is a 65 y/o male with a PMH most significant for Oligodendroglioma, Hydr ocephalus s/p FINE ARTS INSTRUCTOR shunt, Pituitary adenoma with transphenoidal resection, Epileps y, DONNA on CPAP, who resides in a halfway, and presents to the hospital today as a transfer from [facility] ED after seizures. History was provided by STUDIO ASSOCIATE from patients halfway who was with him today. She reported that he was apparently well up until 11 am this AM when he had an epis ode of vomiting. It was reported to be undigested food. He was also altered, and staring off into different directions, not answering questions and not speaking . It was different from his usual seizure activity which involves him moving his head to the side and staring blankly in one direction. He has not had grand mal seizures for many years. He was brought to the [facility] ER, where he was found to be febrile to 102 and continued be encephalopathic. He was morocho-scanned with CT thorax, abdomen, head which were negative. When he arrived at [facility] he star antonio to speak a few words, but continues to be altered. In the ED his vitals were significant for sats of 91 % on RA, and was started on 2 L O2 with sats of 97 %. His labs were largely unremarkable. His dilantin, morales otrigine, keppra and phenobarb levels were within range. CTH did not show any in farct, continued to show FINE ARTS INSTRUCTOR shunt present in the right lateral ventricle. CXR sh owed possible right sided atelectasis vs infiltrate, but largely unremarkable. Hamlet payne received a dose of ceftriaxone/azithromycin, was loaded with 1.5g of Keppra, 5 8 mg of phenobarb, and fosphenytoin 100 mg. Neurology and Neurosurgery were cons ulted in the ED. Neurosurgery did not feel that patients presentation was relate d to his FINE ARTS INSTRUCTOR shunt. Neurology recommended spot EEG and continuation of home med w ith replacement of PO lamictal to IV depacon 500 mg TID. Active Ambulatory Problems Diagnosis Date Noted No Active Ambulatory Problems Resolved Ambulatory Problems Diagnosis Date Noted No Resolved Ambulatory Problems Past Medical History: Diagnosis Date Asthma Brain tumor COPD (chronic obstructive pulmonary disease) Hyperlipidemia Hypertension Osteoporosis Seizures Stroke Thyroid disease Past Surgical History BRAIN SURGERY Social History He is Single. He lives AT A JAIL. He has no history on file for tobacco us e, alcohol use, and drug use. Travel: No recent history of long distance travel. Family History His father had DM Home Medications Not on File Allergies: Adhesive tape, Asenapine, Felbamate, Haldol [haloperidol], and Lurasi done Review of Systems Unable to perform ROS: Mental status change Objective Temp: [36.7 C (98.1 F)-37.4 C (99.3 F)] 36.7 C (98.1 F) Pulse: [89-90] 90 Resp: [20-24] 24 BP: (111)/(76) 111/76 SpO2: [91 %-94 %] 91 % O2 Therapy: Room air O2 Flow Rate (L/min): [2 L/min] 2 L/min Physical Exam Constitutional: He appears ill. No distress. HENT: Head: Normocephalic and atraumatic. Mouth/Throat: Mucous membranes are moist. Cardiovascular: Normal rate, regular rhythm, normal heart sounds and normal puls es. Pulmonary/Chest: Effort normal and breath sounds normal. No respiratory distress . He has no wheezes. He has no rales. Abdominal: Soft. Bowel sounds are normal. He exhibits no distension. There is no abdominal tenderness. There is no guarding. Musculoskeletal: General: Normal range of motion. Neurological: He is alert. Alert, not responding to questions asked or following commands. Negative for nec k stiffness, or pain on flexion of the neck. Skin: Skin is warm. Vitals reviewed. Laboratory Data CBC: 12/28/20 2159 WBC 7.1 RBC 4.13* HGB 12.6* HCT 37.3* PLT 148* BMP: 12/28/20 2159 NA 139 K 4.4 CL 103 BICARBONATE 25 GLUCOSE 122 BUN 22 CREATININE 0.92 BCR 24 OSMOLALITY 293 GFRAA >90 GFRNONAA 87 Assessment & Plan Patient is a 65 y/o male with a PMH most significant for Oligodendroglioma, Hydr ocephalus s/p FINE ARTS INSTRUCTOR shunt, Pituitary adenoma with transphenoidal resection, DONNA, Ep ilepsy who presents to the hospital today for acute mental status change thought to be due to seizure activity. #Acute encephalopathy - differential: seizures, post ictal state, meningitis, encephalitis, FINE ARTS INSTRUCTOR shunt i nfection - improving, now saying a few words - baseline is short sentences, not uncommon for patient to not answer questions appropriately has some behavior issues at baseline - CTH no acute findings: has FINE ARTS INSTRUCTOR shunt - Labs largely unremarkable - Neurosurg: shunt was redialed: no suspicion for FINE ARTS INSTRUCTOR shunt involvement: will nee d CTH tomorrow - c/w following official neurosurg reccs #Seziures - presents to OSH with possible seizure activity, post ictal state - Febrile to 102, WBC normal, Morocho scanned negative at OSH - s/p keppra 1.5 g, 58 mg of phenobarb, and fosphenytoin 100 mg. dilantin, lamotrigine, keppra and phenobarb levels were within range. - home regimen: Phenobarb 64.8 mg BID (now IV 60 BID), Keppra 500 mg TID (now 50 0 mg IV TID), Dilantin 100 mg TID (started 150 mg IV BID), Lamictal 200 mg (no I V conversion - started depacon 500 mg IV TID per neuro) - neurology: spot EEG: shows seizure activity: received ativan 2 mg and depacon 500 mg this AM c/w home medication regimen as above #Concerns for aspiration pneumonitis - was febrile at OSH - on pureed diet with thin liquids at home (NPO now) - episode of vomiting/seizure - CXR no significant findings as of now - on 2 L O2 sats currently, was started for sats as low as 91 %, to titrate off to maintain sats >90% - aspiration precautions - c/w ceftriaxone and azithro #H/o oligodendroglioma #H/o hydrocephalus - s/p F[employer] INSTRU[employer] shunt - follows neurosurg outpatient - per neurosurg low suspicion for infection of shunt #Depression #Behavioural Health issues - paroxetine 60 mg AM (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 Garrido who agrees with the assessment and p jaci as noted above. Signature: Amy Pizano MBBS Date/Time: December 29, 2020 12:50 AM Associated attestation - Colin Garrido MD - 12/29/2020 9:25 PM EDT Pt was seen and examined this morning at 7:30 am, was sedated at the time of exa m, he received iv ativan for seizures. Unable to obtain history from the patient . Reviewed chart. No h/o further fever in ED, since admission Work up negative for acute infection His one time fever could be sec to seizure vs aspiration event CXR not very significant for aspiration Blood c/s negative so far EEG significant for epilepsy D/w neurology, started on antiepileptics as per them Pt transferred to neurology service for further care of epilepsy. I saw and evaluated the patient. Discussed with the resident and agree with the residents findings and plans as written, along with any supplemental dictated a nd/or attending documentation in the patient record by myself. Time spent coordinating care by bed side > 30 min documented in this encounter Procedure Notes * Vance Jauregui MD - 01/02/2021 4:26 PM EDT Associated Order(s): EEG ROUTINE STUDY EEG REPORT NUMBER [id number] DATE OF PROCEDURE: 01/02/2021 HISTORY: The patient is a 65 y.o. male with a history of epilepsy, [employer] shunt placement for hydrocephalus with a history of oligodendroglioma, coming into the hospital in the setting of altered mentation and fever. He was on video EEG monitoring from 12/30/20 to 12/31/20 With multiple brief seizures, which improved. This is a follow- up EEG No current facility-administered medications on file prior to encounter. Current Outpatient Medications on File Prior to Encounter Medication Sig Dispense Refill Bisacodyl 10 MG Rectal Suppository (DULCOLAX) Place 10 mg rectally On day 4 of no bowl movement. Calcium Carbonate-Vitamin D 500-200 MG-UNIT Oral Tablet (OSCAL-500) Take 1 tablet by mouth Two Times Daily Fleet Enema 7-19 GM/118ML Rectal Enema Place 133 mLs rectally daily as ne eded for ConstipationOn day 5 of no bowl movement. Fluticasone Propionate 50 MCG/ACT Nasal Suspension (FLONASE) 2 sprays by Nasal route daily hydrOXYzine HCl 25 MG Oral Tablet (ATARAX) Take 25 mg by mouth Three time s daily hydrOXYzine HCl 25 MG Oral Tablet (ATARAX) Take 25 mg by mouth as needed for Itching Lactulose 10 GM/15ML Oral Solution (CHRONULAC) Take 20 mLs by mouth Two T imes Daily lamoTRIgine (LAMICTAL) 200 MG tablet Take 400 mg by mouth nightly lamoTRIgine 200 MG Oral Tablet (LaMICtal) Take 200 mg by mouth every morn ing levETIRAcetam 500 MG Oral Tablet (KEPPRA) Take 1,500 mg by mouth Two Time s Daily linaCLOtide 290 MCG Oral Capsule (LINZESS) Take 290 mcg by mouth daily Magnesium Hydroxide 400 MG/5ML Oral Suspension (MILK OF MAGNESIA) Take 30 mLs by mouth daily as needed for ConstipationOn day 3 of no bowl movement. PARoxetine HCl 20 MG Oral Tablet (PAXIL) Take 20 mg by mouth every mornin g Take with 40 mg dose in the morning to equal 60 mg daily PARoxetine HCl 40 MG Oral Tablet (PAXIL) Take 40 mg by mouth every mornin g Take with 20 mg dose in the morning to equal 60 mg daily PHENobarbital 64.8 MG Oral Tablet (LUMINAL) Take 64.8 mg by mouth Two Nish es Daily Phenytoin Sodium Extended 100 MG Oral Capsule (Dilantin) Take 100 mg by m outh Two Times Daily Polyethylene Glycol 3350 17 GM Oral Packet (MIRALAX) Take 17 g by mouth T wo Times Daily Please substitute bottle for packets, if packets are unavailable. Prazosin HCl 1 MG Oral Capsule (MINIPRESS) Take 1 mg by mouth nightly QUEtiapine Fumarate 300 MG Oral Tablet (SEROquel) Take 300 mg by mouth Tw o Times Daily QUEtiapine Fumarate 50 MG Oral Tablet (SEROquel) Take 50 mg by mouth Two Times Daily Senna 8.6 MG Oral Tablet Take 2 tablets by mouth nightly Simvastatin 20 MG Oral Tablet (ZOCOR) Take 20 mg by mouth nightly Tamsulosin HCl 0.4 MG Oral Capsule (FLOMAX) Take 0.4 mg by mouth daily traZODone HCl 100 MG Oral Tablet (DESYREL) Take 200 mg by mouth nightly Vitamin D (Ergocalciferol) 1.25 MG (34917 UT) Oral Capsule (ERGOCALCIFERO L) Take 50,000 Units by mouth every 7 (seven) days [DISCONTINUED] Phenytoin Sodium Extended 100 MG Oral Capsule (DILANTIN) T heladio 100 mg by mouth as needed Scheduled Meds: cloBAZam 5 mg Oral BID enoxaparin 40 mg Subcutaneous Daily lactulose 20 mL Oral BID lamoTRIgine 200 mg Oral Daily lamoTRIgine 400 mg Oral Nightly levETIRAcetam 1,500 mg Oral BID levoFLOXacin 750 mg Oral Daily paroxetine 20 mg Oral Daily paroxetine 40 mg Oral Daily PHENobarbital 64.8 mg Oral BID phenytoin 100 mg Oral BID QUEtiapine 300 mg Oral BID trazodone 200 mg Oral Nightly Continuous Infusions: PRN Meds:.hydrOXYzine TECHNICAL DESCRIPTION: This digital EEG was recorded using 2 EKG and 21 scalp and/or ear electrodes. I t was reviewed in referential and bipolar montages following reformatting in the 10-20 International electrode placement system. EEG INTERPRETATION: Background in the most stimulated state consisted of 20-30 microvolt, 5-6 Hz sym metric but poorly sustained posterior dominant rhythm with good reactivity to ey e opening. Faster frequencies including 5-10 microvolts, 12-14 Hz activity was s een in the frontal leads. There were frequent sharp waves in the left anterior quadrant with amplitudes of 40-100 microvolts, and maximum negativity in F7/F3/C3/P3. In addition, there ar e frequent sharp waves in the right fronto-central region with about the same am plitude and maximum negativity in Fp2/F4 > C4. There were frequent runs of 80-120 microvolts, 12-14 Hz discharges in the left h emisphere, at times with spread to the right hemisphere, lasting for 3-4 seconds . The mentioned discharges at times were followed by 2-3 seconds of generalized attenuation and were occasionally associated with arousal and were suspicious to be ictal in nature. Drowsiness/Sleep [] The patient remains only in the awake state throughout the study. [] The patient is intubated, comatose and unresponsive during the recording. [] The patient is not intubated, but comatose and unresponsive during the record ing. [] The patient is stuporous throughout the recording. [] During drowsiness, there is increased emergence of theta and delta rhythms, b ut full sleep is not achieved during this recording. [x] During drowsiness, there is increased emergence of theta and delta rhythms, and during sleep the following sleep structures were seen: [] Vertex sharp transients [] Symmetric sleep spindles [] POSTs [] K-co mplexes [] Other: Photic stimulation Photic stimulation with flash frequencies of 2-21 Hz is not associated with post erior photic driving. No photoparoxysmal response was seen. IMPRESSION: This routine EEG done in the awake and asleep states is abnormal d ue to : 1) Frequent sharp waves, multifocal, left anterior quadrant and right fronto-filomena tral 2) Frequent runs of high amplitude beta-range discharges in the left hemisphere, at times with spread to the right hemisphere, lasting for 3-4 seconds. The ment ioned discharges at times were followed by 2-3 seconds of generalized attenuatio n and were occasionally associated with arousal, and in the latter case were yenny picious to be ictal in nature. 3) Slow posterior dominant rhythm The above findings are suggestive of a multifocal epilepsy. In addition, there i s evidence suggestive of a mild diffuse encephalopathy, non-specific in etiology . Compared to the last video EEG on 12/30/20 to 12/31/20, today's recording shows some improvement with less frequent and shorter duration of ictal and interictal dis charges. * Vance Jauregui MD - 12/30/2020 9:46 PM EDT Associated Order(s): EEG VIDEO MONITORING COMPUTER ASSISTED DIGITAL VIDEO EEG MONITORING VIDEO-EEG REPORT NUMBER [id number] (2nd day of the recording for 19 hours and 14 minutes) + Summary of the entire video-EEG recording at the end of this report DATE OF PROCEDURE: From 12/30/2020 at 16:43 to 12/31/2020 at 11:57 HISTORY: The patient is a 65 y.o. male with a history of epilepsy, [employer] shunt placement for hydrocephalus with a history of oligodendroglioma, coming into the hospital in the setting of altered mentation and fever. TECHNICAL DESCRIPTION: This Computer Assisted Digital Video EEG was recorded using 21 scalp electrodes. It was reviewed daily in referential and bipolar montages following reformattin g in the 10-20 International electrode placement system. Baldemar and seizure dete ction algorithms were employed. The patient was continuously monitored on video . Staff monitored the patient and maintained a diary of daily routine and suspic ious events. When appropriate, staff stimulated, interrogated and/or tested the patient during spells or other activities. The reporting physician had access t o the video-EEG data throughout the recording. The entire record was reviewed, a nd selected portions including spells reported by patient or staff, spike and se izure detections, suspicious video or EEG findings, and other abnormalities were analyzed in detail. ANTISEIZURE MEDICATIONS: -LEV (Levetiracetam): 1500 mg Q12H -PHT (Phenytoin): 100 mg Q12H -PHB (Phenobarbital): 60 mg BID -LTG (Lamotrigine): 200 mg in am, 400 mg in pm -CLB (Clobazam/Onfi): 5 mg BID EEG INTERPRETATION: Background in the most stimulated state consisted of 20-30 microvolt, 5-6 Hz sym metric but poorly sustained posterior dominant rhythm with good reactivity to ey e opening. Faster frequencies including 5-10 microvolts, 12-14 Hz activity was s een in the frontal leads. During drowsiness, there was increased emergence of theta and delta rhythms and as successive stages of sleep developed, sleep spindles were evident. There were frequent sharp waves in the left anterior quadrant with amplitudes of 40-100 microvolts, and Maximum negativity in F7/F3/C3/P3. In addition, there ar e frequent sharp waves in the right fronto-central region with about the same Am plitude and maximum negativity in Fp2/F4 > C4. There were freqent seizures manifesting as 2-3 seconds run of 80-100 microvolts, 10-12 Hz generalized (and at times predominantly in the left hemisphere) discha rges, followed by 2-3 seconds of generalized attenuation. Mostly, there was arou caleb and a subtle non-localizing or lateralizing movement in the body associated with the seizures. The frequency of the seizures was fluctuating between 2 to 20 per hour, on average, and overall slightly less frequent compared to the previo us day IMPRESSION: This Computer Assisted Digital Video EEG for 19 hours and 14 minutes from 12/30/2020 at 16:43 to 12/31/2020 at 11:57 was abnormal due to: 1) Seizures A. EEG: Electrographical seizure, non-localizable, sometimes lateralizing to th e left hemisphere B. Clinical: Either no clinical signs or arousal and a subtle non-localizing or lateralizing movement in the body. Duration of the seizures were between 5 to 8 seconds and the frequency was fluct uating between 0 to 20 per hour, on average. Majority of the seizures were durin g sleep. Overall, slightly less frequent compared to the previous day 2) Abundant sharp waves, multifocal, left anterior quadrant and right fronto-filomena tral 3) Slow posterior dominant rhythm The above findings are suggestive of a multifocal epilepsy. In addition, there i s evidence suggestive of a mild diffuse encephalopathy, non-specific in etiology . This was the last day of the recording. ==== Summary report for the entire video-EEG recording from 12/29/2020 at 16:43 to 2020 at 11:57 Summary of clinical history 65 y.o. male with a history of epilepsy, F[employer] shunt placement for hydrocephalus wi th a history of oligodendroglioma, coming into the hospital in the setting of al tered mentation and fever. Summary of EEG findings 1) Seizures A. EEG: Electrographical seizure, non-localizable, sometimes lateralizing to th e left hemisphere B. Clinical: Either no clinical signs, or arousal and a subtle non-localizing o r lateralizing movement in the body. Duration of the seizures were between 5 to 8 seconds and the frequency was fluct uating between 0 to 20 per hour, on average. Majority of the seizures were durin g sleep. Overall, there was some reduction in seizure frequency on the last day of the recording. 2) Abundant sharp waves, multifocal, left anterior quadrant and right fronto-filomena tral 3) Slow posterior dominant rhythm Clinical Impression The above findings are suggestive of a multifocal epilepsy. In addition, there i s evidence suggestive of a mild diffuse encephalopathy, non-specific in etiology . * Vance Jauregui MD - 12/29/2020 5:57 PM EDT COMPUTER ASSISTED DIGITAL VIDEO EEG MONITORING VIDEO-EEG REPORT NUMBER [id number] (1st day of the recording for 24 hours) DATE OF PROCEDURE: From 12/29/2020 at 16:43 to 12/30/2020 at 16:43 HISTORY: The patient is a 65 y.o. male with a history of epilepsy, F[employer] shunt placement for hydrocephalus with a history of oligodendroglioma, coming into the hospital in the setting of altered mentation and fever. TECHNICAL DESCRIPTION: This Computer Assisted Digital Video EEG was recorded using 21 scalp electrodes. It was reviewed daily in referential and bipolar montages following reformattin g in the 10-20 International electrode placement system. Baldemar and seizure dete ction algorithms were employed. The patient was continuously monitored on video . Staff monitored the patient and maintained a diary of daily routine and suspic ious events. When appropriate, staff stimulated, interrogated and/or tested the patient during spells or other activities. The reporting physician had access t o the video-EEG data throughout the recording. The entire record was reviewed, a nd selected portions including spells reported by patient or staff, spike and se izure detections, suspicious video or EEG findings, and other abnormalities were analyzed in detail. ANTISEIZURE MEDICATIONS: -LEV (Levetiracetam): 1500 mg Q12H -PHT (Phenytoin): 150 mg Q12H -PHB (Phenobarbital): 60 mg BID -VPA (Valproic acid): 500 mg Q8H EEG INTERPRETATION: Background in the most stimulated state consisted of 20-30 microvolt, 5-6 Hz sym metric but poorly sustained posterior dominant rhythm with good reactivity to ey e opening. Faster frequencies including 5-10 microvolts, 12-14 Hz activity was s een in the frontal leads. During drowsiness, there was increased emergence of theta and delta rhythms and as successive stages of sleep developed, sleep spindles were evident. There were frequent sharp waves in the left anterior quadrant with amplitudes of 40-100 microvolts, and Maximum negativity in F7/F3/C3/P3. In addition, there ar e frequent sharp waves in the right fronto-central region with about the same Am plitude and maximum negativity in Fp2/F4 > C4. There were freqent seizures manifesting as 2-3 seconds run of 80-100 microvolts, 10-12 Hz generalized (and at times predominantly in the left hemisphere) discha rges, followed by 2-3 seconds of generalized attenuation. Mostly, there was arou caleb and a subtle non-localizing or lateralizing movement in the body associated with the seizures. The frequency of the seizures was fluctuating between 5 to 20 per hour, on average. IMPRESSION: This Computer Assisted Digital Video EEG for 24 hours from 12/29/2020 at 16:43 to 12/30/2020 at 16:43 was abnormal due to: 1) Seizures A. EEG: Electrographical seizure, non-localizable, sometimes lateralizing to th e left hemisphere B. Clinical: Arousal and a subtle non-localizing or lateralizing movement in th e body Duration of the seizures were between 5 to 8 seconds and the frequency was fluct uating between 5 to 20 per hour, on average. 2) Abundant sharp waves, multifocal, left anterior quadrant and right fronto-filomena tral 3) Slow posterior dominant rhythm The above findings are suggestive of a multifocal epilepsy. In addition, there i s evidence suggestive of a mild to moderate diffuse encephalopathy, non-specific in etiology. The video-EEG continues. * Ramon Frank MD - 12/29/2020 11:36 AM EDT Associated Order(s): EEG ROUTINE STUDY Images from the original note were not included. IMPRESSION: This inpatient routine VEEG is abnormal due to: 1. Diffuse irregular theta background slowing. 2. Abundant independent epileptiform discharges over the right and left frontoce ntral and frontotemporal areas. 3. Runs of polyspikes of up to 8 seconds, some with spatiotemporal evolution hig hly suspicious for seizures. There are no clinical manifestation during the runs . TECHNIQUE: This is an inpatient routine VEEG recorded using the 10-20 internatio nal system for electrode placement and nomenclature. The study includes at least 19 channels and a single EKG lead. It is reviewed in bipolar and referential mo ntages using filter settings in accordance with ACNS guidelines. Standardized te rminology for inpatient EEG reporting is used as per ACNS guidelines. INDICATION: 65 y.o. male with a history of epilepsy, F[employer] IN[employer] shunt placement for hydr ocephalus, oligodendroglioma, coming into the hospital in the setting of altered mentation and fever. COMPARISON: Direct comparison to the routine EEG dated 12/29/20. There has been an interval decrease in the prevalence of epileptiform discharges. PERTINENT MEDICATIONS: levetiracetam 1500 mg bid; phenytoin 150 mg bid; valproat e 500 mg q8; phenobarbital 60 mg bid. BACKGROUND: The background rhythm consists of diffuse irregular theta activity m easuring 5-7 Hz and 20-40 V. Background reactivity is present. EPILEPTIFORM DISCHARGES: There are abundant right frontocentral isolated epilep tiform discharges maximal at Fp2/F4/C4 measuring up to 200 V (Figure 1). The re are also abundant independent isolated epileptiform discharges over the left frontotemporal and frontocentral areas maximal at Fp1/F7/F3 and measuring up to 200 V. In addition see below. PERIODIC OR RHYTHMIC PATTERNS: None. SEIZURES: The right frontocentral discharges mentioned above at times become yenny tained in trains of up to 8 seconds of fast polyspikes at 10 Hz and up to 100 V. These runs have evolution in frequency, morphology and spread to the rest o f the right hemisphere (Figure 3) and sometimes the left hemisphere as well (Fig ure 4). Although they last less than 10 seconds, they are highly suspicious for frontal lobe seizures with rapid bilateral synchrony. There are no clinical christa festations during these runs. EVENTS: None. Figure 1: Right frontocentral discharges Figure 2: Left frontocentral epileptiform discharges. Figure 3: 8-second run of polyspikes from the right parafalcine area and spatiot emporal evolution. Figure 4: Bursts of polyspikes documented in this encounter Consult Notes * Barbara Alexander LMSW - 12/29/2020 4:10 PM EDT Associated Order(s): IP CONSULT TO SOCIAL WORK Social Work Brief Screen Patient Name: Hemanth Hunt Pronoun Date of : 1955 County of Residence: [place] Admitting Dx: Seizures [R56.9] Right lower lobe pulmonary infiltrate [R91.8] Admitting Provider: Contreras Man MD Referral Type: Inpatient Referral Source: Nurse; Geovanna Fletcher RN Reason for Referral: Advanced Directives Advanced Directives; HCP Date: December 29, 2020 Emergency Contacts Name: jeanna Pitts Address: Home: Work: Primary Caregiver: self Informant(s): Jeanna (sister) and [facility] Authorized to Consent: sister Jeanna DARLING was consulted for medical decision making. Hemanth, who goes by "Stanislav" per his sister Jeanna, resides in an [facility] home. She states that she is the HCP agent. SW asked for paperwork and she is going to look for it as well a s the [facility]. SW spoke with a nurse at [facility] who located a HCP and will fax it over. SW will review the HCP for validity. SW provided Jeanna with the nurse's unit mikayla ne # as well. By the time I left for the day, the HCP had not been faxed over yet for SW to re view. Jeanna states if she finds a copy she will fax it directly to the 9 nurses station. Please have SW review validity. In the interim, next of kin would be Vivian chino's father, listed below, unless he defers decision making. Other family contacts: Jeanna Pitts (sister): [phone] Hemanth Hunt (father): [phone] [facility]: [phone] Interventions Encouraged problem solving. Assessed for SW needs. Signature: Barbara Alexander Date: December 29, 2020 * Manish Chawla MBBS - 12/29/2020 8:20 AM EDT Associated Order(s): IP CONSULT TO NEUROLOGY [facility] [place] [address] PATIENT NAME: Hemanth Hunt, DATE OF : 1955 . Primary Care Physician: Ramandeep Lozano PA General Neurology Consult Note Reason for consult Altered mentation History of presenting illness Hemanth Hunt is a 65 y.o. 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 Patient was in his usual state of health yesterday morning. He had an episode o f vomiting following which he appeared to be confused. At baseline he is able t o communicate and follow simple commands. Unable to do so after this episode. Taken to the emergency department at outside hospital. Noted to be febrile with temperature 102. Work-up including infectious work-up, CT head was negative at the time. At outside hospital had an episode of staring off to the left lastin g around 10 seconds which is typical of his regular seizure semiology. Patient remained persistently altered. In view of negative work-up, was transferred to [facility] for further evaluation and management. Neurosurgery consultedshun t was adjusted as settings appear to be incorrect. Work-up so far significant f or possible pneumonia. Patient now afebrile. Stat EEG obtained in the emergenc y departmentsignificant for multiple seizures. Patient given Depakote lela d, Ativan 2 mg. Plan for video EEG monitoring but no video EEG available. Repe at stat EEG ordered and pending. Past medical history Past Medical History: Diagnosis Date Asthma Brain tumor COPD (chronic obstructive pulmonary disease) Hyperlipidemia Hypertension Osteoporosis Seizures Stroke Thyroid disease Past surgical history Past Surgical History: Procedure Laterality Date BRAIN SURGERY Social history Living situation - Lives in a halfway. Family history No family history on file. Allergies Allergies Allergen Reactions Adhesive Tape Asenapine Felbamate Haldol [Haloperidol] Lurasidone Medications Current Facility-Administered Medications Medication Dose Route Frequency Provider Last Rate Last Admin [START ON 12/30/2020] azithromycin in NaCl 0.9 % 250 mL infusion 500 mg 50 0 mg Intravenous Q24H MISHA Lloyd [START ON 12/30/2020] cefTRIAXone (ROCEPHIN) infusion 1 g (premix) 1 g Int ravenous Q24H MISHA Lloyd enoxaparin sodium (LOVENOX) injection 40 mg 40 mg Subcutaneous Daily MISHA Meek levETIRAcetam (KEPPRA) 500 mg in sodium chloride 100 mL (5 mg/mL) infusio n (premix) 500 mg Intravenous 3 Times Daily MISHA Lloyd PHENobarbital (LUMINAL) injection 60 mg 60 mg Intravenous BID MISHA Brown phenytoin (DILANTIN) injection 150 mg 150 mg Intravenous Q12H MISHA Brown sodium chloride (preservative free) 0.9 % flush 3 mL 3 mL Intravenous 3 times per day Ceasar Paniagua MD And sodium chloride (preservative free) 0.9 % flush 3 mL 3 mL Intravenous SD N Ceasar Paniagua MD sodium chloride 0.9 % bag 3-20 mL 3-20 mL Intravenous PRN Ceasar Marte ra, MD valproate sodium (DEPACON) injection 500 mg 500 mg Intravenous Q8H MISHA Lloyd No current outpatient medications on file. Review of Systems Unable to obtainaltered mentation OBJECTIVE: Visit Vitals BP 122/80 Pulse 80 Temp 36.8 C (98.2 F) (Axillary) Resp (!) 21 Ht 1.854 m (6' 1") Wt 101.8 kg (224 lb 6.9 oz) SpO2 98% BMI 29.61 kg/m General Examination: Constitutional: Vitals as above General: No apparent distress, well developed and well nourished. Psychiatric: Cooperative, appropriate affect Eyes: Sclera non-icteric. No conjunctival injection ENT: Neck supple, moist mucus membranes Lungs: No respiratory distress on room air Msk: Non-tender extremities. Neurological Examination: (Unable to obtain full neurological exam as patient is not cooperating with confrontational muscle testing, following Mental Status: Patient awake, alert, looking around. Does not consistently trac k. Able to lift all 4 extremities antigravity. Questionably following simple commands (squeezes but does not release.) Sensory exam intact to noxious stimuli in all 4 extremities. Labs: Last serum level of current AEDs: No results found for: TOPIRAMATE No results found for: ZONISAMIDE Dilantin Screen (ug/ml) Date Value 12/28/2020 16.4 Phenobarbital (ug/ml) Date Value 12/28/2020 30.2 No results found for: CBMZ Lamotrigine (ug/mL) Date Value 12/28/2020 5.3 Levetiracetam Lvl (ug/mL) Date Value 12/28/2020 19 No results found for: OXC No results found for: LACOSAMIDE No results found for: VPAT No results found for: VALPROATE No results found for: VDT No results found for: FELB No results found for: LABCARN No results found for: AMMONIA Lab results: panel Recent Labs Lab 12/28/202158 NA 139 K 4.4 CL 103 BICARBONATE 25 GLUCOSE 122 BUN 22 CREATININE 0.92 BCR 24 GFRAA >90 GFRNONAA 87 Recent Labs Lab 12/28/202158 HCT 37.3* HGB 12.6* MCH 30.6 MCHC 33.8 MCV 90.5 PLT 148* RDW 13.8 WBC 7.1 No results for input(s): LABPT, INR, PTT in the last 168 hours. No results found for: LDL, TSH Lab Results Component Value Date ALT 12 12/28/2020 AST 12 12/28/2020 ALKPHOS 123 12/28/2020 TBILI 0.2 12/28/2020 Imaging: Assessment Hemanth Hunt is a 65 y.o. male with a past medical history of oligodendrogliom a, hydrocephalus s/p FINE ARTS INSTRUCTOR shunt, pituitary adenoma, epilepsy on home Keppra, pheny toin, phenobarb, lamotrigine who comes to the hospital in the setting of altered mentation, fever, possible clinical seizure at outside hospital. Neurosurgery consulted and adjusted shunt Epilepsy with breakthrough seizures Continue IV Keppra, phenytoin, phenobarbital. As patient cannot receive lamotrigine. Continue Depakote 500 mg every 8 h ours. (S/p IV Depakote 1 g.) Video EEG monitoring pending. As unable to obtainstat EEG ordered f or emergency department. If work-up for infection remains negative, primary team may consider lumba r puncture to rule out DIRECTOR BROADCAST infection. Neurology consult service will continue to follow. Patient discussed with attending neurologist, Dr. Man, and the plan was for mulated together. Manish Chawla PGY 3 Neurology Associated attestation - Contreras Man MD - 12/29/2020 8:36 PM EDT I saw and evaluated the patient. Discussed with the resident and agree with res idents findings as documented in the resident's note. After routine EEG placed, found to be having continuing seizures, though less th an 10 seconds, multiple per hour, without overt clinical manifestation other lucille n not following commands. No VPS issue per neurosurgery. Seizures may be precipi tated by toxic/metabolic stress from process that precipitated fever (infection, aspiration pneumonitis), but since non-convulsive status epilepticus risk remai ns high, we will transfer to general neurology for seizure management. On increa se dose of levetiracetam, home dose of phenytoin and phenobarbital, and on valpr oate instead of lamotrigine since he could not take PO medications yesterday. If no improvement, we will consider LP. Contreras Man MD * Ceasar Sánchez MD - 12/29/2020 6:32 AM EDT Associated Order(s): IP CONSULT TO NEUROSURGERY Images from the original note were not included. [facility] [place] [address] PATIENT NAME: Hemanth Hunt, DATE OF : 1955 . Subjective Date of Encounter: 12/29/2020 Reason for Consultation: second opinion and management recommendations. Requested By: ED History of Present Illness: Patient is a 65 year old male with a history of a le ft parietal oligodendroglioma resection as well as a pituitary tumor resection a t effie s/p R VPS for hydrocephalus >5 years ago with unknown revision set at Strata 1 per previous documentation coming with with a seizure leading to vomiting. Per Effie's documentation patient has been declining over the past several months. He has had worsening seizures and had his shunt evaluated in late October 2020 which his MRI was stable and he was re-set to one. His aed were tweaked at that time and he was discharged for a 1 year follow up. Health Export Administrator is unable to provide a history of this patient at this time. Patient was recently treated for a skin infection about a month ago. CXR is concerning for aspiration pneumonia. Patient has remained afebrile since his seizures this morning. Per Health care proxy patient is almost back at his clinical baseline Shunt History Reason for Initial Placement: Hydrocephalus Type of Shunt Valve: Strata Shunt Setting per record: 1 per [facility] documentation Current Shunt Setting based on xray/interrogation: 1 Additions to shunt system: None Original insertion: when,who,[place] unknown time and date Past revision: yes Number of previous revisions: unknown When/Where was last revision: ~6 years ago Baseline ventricles on imaging: Moderate ventriculomegally Do ventricles enlarge on imaging in shunt failure: unkown Unknown shunt failure exam Review of Systems Pertinent items are noted in HPI. Active Problems: Patient Active Problem List Diagnosis Date Noted Right lower lobe pulmonary infiltrate 12/29/2020 Seizures 12/29/2020 Past Medical History: Past Medical History: Diagnosis Date Asthma Brain tumor COPD (chronic obstructive pulmonary disease) Hyperlipidemia Hypertension Osteoporosis Seizures Stroke Thyroid disease Past Surgical History: Past Surgical History: Procedure Laterality Date BRAIN SURGERY Allergies: Allergies Allergen Reactions Adhesive Tape Asenapine Felbamate Haldol [Haloperidol] Lurasidone Prior to Admission Medications:(Not in a hospital admission) Family History:No family history on file. Social History: Social History Tobacco Use Smoking status: Not on file Substance Use Topics Alcohol use: Not on file Objective Vitals Temp: [36.7 C (98.1 F)-37.4 C (99.3 F)] 37 C (98.6 F) Pulse: [83-90] 83 Resp: [20-24] 24 BP: (92-128)/(68-81) 128/81 SpO2: [91 %-97 %] 97 % O2 Therapy: Room air O2 Flow Rate (L/min): [2 L/min] 2 L/min Intake/Output Last 3 Completed Shifts No intake/output data recorded. Physical Exam NAD, lying supine on room air HEENT: NC/AT CV: Regular Rate and Rhythm Pulm: CTA BL, symmetric chest rise Abdm: soft, non-tender, obese Ext: warm, well perfused NAD Awake, Alert, Responds to oriented to self with prompting Lying supine Language: Intellectually impaired at baseline Cranial Nerves: PERRL, EOMI, FS, TML Strength: Moves all extremities grossly symmetric Data Review CBC: Recent Labs Lab 12/28/20 2159 WBC 7.1 RBC 4.13* HGB 12.6* HCT 37.3* PLT 148* NEUTOPHILPCT 84 MONOPCT 9 BMP: Recent Labs Lab 12/28/20 2159 NA 139 K 4.4 CL 103 BICARBONATE 25 GLUCOSE 122 BUN 22 CREATININE 0.92 BCR 24 GFRAA >90 GFRNONAA 87 COAGS: No results for input(s): INR in the last 168 hours. Invalid input(s): PT, PTT Assessment/Plan Hemanth Hunt is a 65 y.o. male patient with a hx of R VPS strata at 1 per [facility] documentation for hydrocephalus with hx of L P oligodendroglioma and pitui tary tumor resection with worsening seizures and AMS for the past month presenti ng with seizure and spiking 1 fever to 102. Neuro: Patient returning to baseline per stock taker EEG with concerns for seizures which neurology is managing. Management per them CTH with ventriculomegally and ex-vacu changes secondary to hx of craniotomy for tumor resection. No baseline CT to compare ventricular anatomy too however it is document that patient has moderate ventriculomegally at basline. Shunt was interrogated here with a skull x-ray which the setting was set to 2 an d was dialed down to Certas 1 per current documentation at [facility] 1 month ago . Patient Mri was stable at [facility] 1 month ago compared to previous Elevated CRP likely secondary to aspiration penumonia vs previous skin infection which he was treated for. Patient remains a-febrile at this time Shunt unlikely to be infected given timing of last revision Recommend Re-Morocho culture Need Outside hospital records as well as all previous scans to compare to given that care everywhere does not have complete records. Patient needs a complete full shunt series Neurosurgery will follow for records as well as new shunt series Discussed with chief resident Dr. Gardner and attending Dr. Sorenson. Ceasar Sánchez MD Neurosurgery PGY2 12/29/20 6:33 AM Associated attestation - Frank Sorenson MD - 01/02/2021 2:08 PM EDT I have seen and examined the patient on 12/29/20, and agree with the resident s note documented in this encounter ED Notes * Beatriz Butts RN - 12/29/2020 1:00 AM EDT Tech at bedside for EEG * Ceasar Paniagua MD - 12/28/2020 9:30 PM EDT History Allergies Allergen Reactions Adhesive Tape Asenapine Felbamate Haldol [Haloperidol] Lurasidone Chief Complaint Patient presents with Fever Immunization History Administered Date(s) Administered Moderna SARS-CoV-2 Vaccine 06/15/2020, 07/13/2020 Are patient immunizations up to date?: Unknown HPI The patient is a 65-year-old male with a past medical history of severe seizure disorder leading to mental retardation, and a FINE ARTS INSTRUCTOR shunt for the past 5 years who presents to the ED due to fever of unknown source and AMS. Currently the patien t is nonverbal/not oriented, this is not his baseline. All history is provided by his caregiver. Per the caregiver the patient was acting fine this morning, h is normal baseline. At his baseline the patient is able to have a conversation with his providers and is able to answer simple questions and express simple com mands. In the morning the patient had one episode of vomiting. After that epis ode of vomiting the patient's altered mental status began. He was no longer abl e to communicate with staff and he was moaning frequently. Because of this the patient went to the ED. In the ED the patient was found to have a temperature o f 102.4. Per manager respiratory care patient exhibited his classic seizure activity in the E D. Because of this they gave him intranasal Versed. At the OSH they performed a CT scan of the head, thorax, and abdomen which all came back negative. There CBC and a CMP were nonactionable, UA which was negative. The patient used to get seizures 2-3 times per week. This changed a couple of m onths ago after his neurologist changed his medications. Now he currently gets a seizure once every couple weeks. The patient's classic seizure activity is to turn his head to the left and stare into space. His caregiver reported that he had his classic seizure activity in the ED at the OSH. Presentation to the ED the patient was hemodynamically stable but does have tach ycardia and is nonresponsive to any questions. Pt mentation improving, speaking more words, which is closer to baseline. Past Medical History: Diagnosis Date Asthma Brain tumor COPD (chronic obstructive pulmonary disease) Hyperlipidemia Hypertension Osteoporosis Seizures Stroke Thyroid disease Past Surgical History: Procedure Laterality Date BRAIN SURGERY No family history on file. Social History Tobacco Use Smoking status: Not on file Vaping Use Vaping Use: Unknown Substance Use Topics Alcohol use: Not on file Drug use: Not on file E-Cigarette Use: Unknown If Ever Used Social Screening Review of Systems Unable to perform ROS: Mental status change Physical Exam Visit Vitals BP 111/76 (BP Location: Right arm, Patient Position: Lying) Pulse 90 Temp 36.7 C (Oral) Resp (!) 24 Ht 1.854 m Wt 101.8 kg SpO2 91% BMI 29.61 kg/m Physical Exam Constitutional: General: He is in acute distress. Appearance: He is obese. He is ill-appearing and toxic-appearing. HENT: Head: Normocephalic and atraumatic. Mouth/Throat: Mouth: Mucous membranes are moist. Eyes: Extraocular Movements: Extraocular movements intact. Comments: Nonreactive to light bilaterally Cardiovascular: Rate and Rhythm: Normal rate and regular rhythm. Heart sounds: No murmur heard. No friction rub. No gallop. Pulmonary: Breath sounds: No wheezing or rhonchi. Comments: Tachypnea Abdominal: Comments: Distended abdomen. Patient appears uncomfortable when his abdomen is palpated Musculoskeletal: General: No swelling or tenderness. Skin: General: Skin is warm and dry. Comments: No erythema, rash, or cellulitis noted anywhere on the body ED Course (Entries in this section may reflect care that occurred after patient hand-off a nd are the responsibility of that provider as indicated by their initials.) Procedures MDM Patient is a 65-year-old male with a past medical history of seizure disorder le ading to mental retardation, and a FINE ARTS INSTRUCTOR shunt for the last 5 years who presents to the ED as a transfer from an outside hospital due to a fever of unknown source and possible seizure activity. The patient was his baseline this morning when h e had one episode of vomiting and has had significant altered mental status sinc e then. Because of this he presented to the ED where he was found to have his c lassic seizure activity but also was found to have a fever of 102.4. The patien t was given 1 dose of a benzo at the outside ED but his pain did not resolve. A t the outside hospital a CT head, CT thorax, and CT abdomen was done which showe d no acute pathology. CBC showed showed minor normocytic anemia but no leukocyt osis. UA was negative. On presentation to the ED the patient was hemodynamical ly stable but does tachypnea and an O2 sat of 91%. It is not clear whether O2 s at is his baseline. On physical exam the patient does have pupils are not react jose to light, unclear whether is per his baseline. Differential diagnosis inclu rica but is not limited to status epilepticus, seizures, meningitis, encephalitis , pneumonitis, aspiration pneumonia. Due to the patient's presentation we will consult neurology to assess for seizur e activity and a possible spot EEG. We will get a chest x-ray, CBC, CMP, VBG, UA , EKG, ESR, CRP. We will also give the patient is nightly seizure medications i ncluding phenobarbital, Keppra, Dilantin. The patient's Lamictal was held as th ere is no IV variant. CMP is nonactionable, CBC shows minor normocytic anemia but no leukocytosis. ESR is normal, CRP is elevated at 104.6. Levetiracetam, phenobarbital, phenytoin, a nd lamotrigine are all within therapeutic range. Chest x-ray showed signs of atelectasis versus early infiltrates. Given his of vomiting earlier with low sats currently + fever feel developing aspiration PNA /pneumonitis likely source, abx ordered. Neurology will do a spot EEG on the patient. They also recommended giving the patient 500 mg Depakote IV 3 times daily to replace his oral Lamictal. Impression: fever, RLL infiltrate, breakthrough seizure. Condition: Stable Disposition: Admit to medicine René Lynn MD Resident 12/29/2022 I saw and evaluated the patient. I discussed the patient with the resident. I re viewed the resident's note and nursing documentation. I agree with the above fin dings and plan. Ceasar Paniagua MD 12/29/2042 * Radha Felix RN - 12/28/2020 7:45 PM EDT Per ems, pt lives at halfway. Pt has a history of vp compliance shunt. Pt was evaluated at [facility] ED today for a fever of unknown source. Pt was covid negative per ems. Pt was transferred here for further evaluation. documented in this encounter Miscellaneous Notes * Plan of Care - Manasa Degroot RN - 01/03/2021 4:30 PM EDT Problem: Risk for Falls Goal: No falls during hospitalization Description: Patient will not fall during hospitalization. Outcome: Adequate for Discharge Problem: Knowledge Deficit Goal: Knowledge - personal safety Description: Patient will verbalize understanding of fall prevention. Outcome: Adequate for Discharge Problem: Sensory Perception is less than 4 (< 4) Goal: Improve Sensory Perception Outcome: Adequate for Discharge Problem: Moisture is less than 4 (< 4) Goal: Eliminate Moisture Outcome: Adequate for Discharge Problem: Activity is less than 4 (< 4) Goal: Improve Activity Outcome: Adequate for Discharge Problem: Mobility is less than 4 (< 4) Goal: Improve Mobility Outcome: Adequate for Discharge Problem: Nutrition is Less than 3 (< 3) Goal: Improve Nutrition Outcome: Adequate for Discharge Problem: Friction Shear is less than 3 (< 3) Goal: Eliminate Friction Shear Outcome: Adequate for Discharge Problem: Spiritual Care Plan Goal: To assess spiritual care needs and hopes and mobilize spiritual resources for patients/families/caregivers that support/enhance quality of life related to hospitalization Description: To assess spiritual care needs and hopes and mobilize spiritual res ources for patients/families/caregivers that support/enhance quality of life rel ated to hospitalization. Outcome: Adequate for Discharge * Plan of Care - Manasa Marin RN - 01/03/2021 12:33 AM EDT Problem: Risk for Falls Goal: No falls during hospitalization Description: Patient will not fall during hospitalization. Outcome: Progressing Problem: Knowledge Deficit Goal: Knowledge - personal safety Description: Patient will verbalize understanding of fall prevention. Outcome: Progressing Problem: Sensory Perception is less than 4 (< 4) Goal: Improve Sensory Perception Outcome: Progressing Problem: Moisture is less than 4 (< 4) Goal: Eliminate Moisture Outcome: Progressing Problem: Activity is less than 4 (< 4) Goal: Improve Activity Outcome: Progressing Problem: Mobility is less than 4 (< 4) Goal: Improve Mobility Outcome: Progressing Problem: Nutrition is Less than 3 (< 3) Goal: Improve Nutrition Outcome: Progressing Problem: Friction Shear is less than 3 (< 3) Goal: Eliminate Friction Shear Outcome: Progressing Problem: Spiritual Care Plan Goal: To assess spiritual care needs and hopes and mobilize spiritual resources for patients/families/caregivers that support/enhance quality of life related to hospitalization Description: To assess spiritual care needs and hopes and mobilize spiritual res ources for patients/families/caregivers that support/enhance quality of life rel ated to hospitalization. Outcome: Progressing * Assessment & Plan Note - Yovanny Nation, PT - 01/02/2021 5:06 PM EDT Physical Therapy Acute Care Neurology Examination Medical Diagnosis: Acute encephalopathy - differential: seizures, post ictal state, meningitis, encephalitis, FINE ARTS INSTRUCTOR shunt infection History of Present Illness: Per Epic: "Patient is a 65 y/o male with a PMH most significant for Oligodendroglioma, Hydrocephalus s/p FINE ARTS INSTRUCTOR shunt, Pituitary adenoma with transphenoidal resection, Epilepsy, DONNA on CPAP, who resides in a halfway, and presents to the hospital today as a transfer from [facility] ED after seizures. ? History was provided by STUDIO ASSOCIATE from patients halfway who was with him today. She reported that he was apparently well up until 11 am this AM when he had an episode of vomiting. It was reported to be undigested food. He was also altered, and staring off into different directions, not answering questions and not speaking. It was different from his usual seizure activity which involves him moving his head to the side and staring blankly in one direction. He has not had grand mal seizures for many years. He was brought to the [facility] ER, where he was found to be febrile to 102 and continued be encephalopathic. He was morocho-scanned with CT thorax, abdomen, head which were negative. When he arrived at [facility] he started to speak a few words, but continues to be altered. ? In the ED his vitals were significant for sats of 91 % on RA, and was started on 2 L O2 with sats of 97 %. His labs were largely unremarkable. His dilantin, lamotrigine, keppra and phenobarb levels were within range. CTH did not show any infarct, continued to show FINE ARTS INSTRUCTOR shunt present in the right lateral ventricle. CXR showed possible right sided atelectasis vs infiltrate, but largely unremarkable. He received a dose of ceftriaxone/azithromycin, was loaded with 1.5g of Keppra, 58 mg of phenobarb, and fosphenytoin 100 mg. Neurology and Neurosurgery were consulted in the ED. Neurosurgery did not feel that patients presentation was related to his FINE ARTS INSTRUCTOR shunt. Neurology recommended spot EEG and continuation of home med with replacement of PO lamictal to IV depacon 500 mg TID. " ? Date of Onset: prior to admission Date of Admission: 12/28/2020 7:49:00 PM Demographics: Age: 65 Gender: Male Past Medical History and Radiographics: Significant rehabilitation considerations: Past Medical History: ?Asthma? ?Brain tumor? ?COPD (chronic obstructive pulmonary disease)? ?Hyperlipidemia? ?Hypertension? ?Osteoporosis? ?Seizures? ?Stroke? ?Thyroid disease? ? Past Surgical History BRAIN SURGERY Rehabilitation Precautions/Restrictions: OOB with assist, aspiration precautions, continous EEG, helmet when OOB due to baseline seizures. Allergy to adhesive tape. SUBJECTIVE Mental Status: Orientation:Patient is not alert and oriented as follows: Pt is oriented to self only. Command Following:Able to follow 1 step commands. Prior Functional Level: Unable to determine patient's premorbid level of function at this time. Occupation: Not working Social History: Patient does not live alone. Patient lives with other residents at a halfway . If needed: Caregiver is willing to assist. Nurse assists. Home Environment: Home set up unknown. Pt resides at [facility] Equipment Owned: Unknown Pain: Patient unable to report pain, utilized USR Scale Respiratory: 0 = Baseline respiratory rate, normally/or ventilator compliance Physiology: 0 = stable vital signs Facial Expression 0 = neutral or smiling Body Language: 0 = relaxed, normal muscle tone Consolability: 0 = no need to console, content, relaxed USR Total Pain Score: 0 Pain Medication Today: yes. OBJECTIVE General Observation: Male pt supine in bed, sleeping and easily aroused to voice, +tele, +PIV covered with Wing dressing, in NAD. Bed alarm was on at start of session. Seizure pads present at start of session. Special Tests: Not assessed at this time. Range of Motion: Justin UE and LE AROM WFL Strength: Justin UEs and LEs at least 3/5. Unable to formally assess due to pt's inability to consistently follow commands. Skin Integrity Screen: Visible skin grossly intact. Tone/Spasticity: WNL throughout. Sensation: Not tested. Coordination: Justin UE finger to nose grossly intact, however presents with truncal ataxia in sitting. Functional Mobility: Bed Mobility: Supine to sitting with Max assist for justin LE positioning, trunk control. Pt unable to consistently follow simple commands, easily distracted, tangential and dysarthric. Sit to supine with Max assist x 2. Transfers: Patient transferred sit to/from stand requiring total assistance of 2 persons. Patient used the following equipment: Transfer belt. Patient used the following equipment: Bed rails. Sit to stand attempted x 3, however pt with strong left sided and posterior leaning with trunk extension. Locomotion/Wheelchair: Not assessed. Locomotion/Gait/Ambulation: Not assessed. Stairs: Not assessed. Vital Signs: Stable. Balance: Dynamic balance in a seated position: Poor: posterior loss of balance. Static balance in a seated position: Fair: requiring stand by assist for safety. Static balance in a standing position: Poor: total assist x 2 with strong posterior leaning. Endurance: poor (+). Pt deferred OOB to chair, requesting return to bed. Outcome Measures: [facility] AM-PAC "6 Clicks" Basic Mobility Inpatient Short Form: Turning over in bed: Unable to perform (1) Sitting down on and standing up from a chair with arms: Unable to perform (1) Moving from lying on back to sitting on the side of the bed: Unable to perform (1) Moving to and from a bed to a chair (including a wheelchair): Total assistance (1) Walking in hospital room: Total assistance (1) Climbing 3-5 steps with a railing: Total assistance (1) Raw Score 6 /24. Interventions: None provided today. Education: Educational needs: PT plan for treatment.Safety. Mobility techniques. Barriers to Learning: Cognitive limitations. Acuity of illness/injury. Speech and Language. Learning Preference: Auditory. Demonstration. Mode of education provided: Demonstration. Explanation. Audience: Patient. Education Provided: See above. . Response: Indicates understanding. Needs practice/reinforcement. Requires cues (auditory/physical). ASSESSMENT Moderate Complexity Evaluation: A history of present problem with 1-2 personal factors and/or comorbidities that impact the plan of care. An examination of body system(s) using standardized tests and measures addressing a total of 3 or more elements from any of the following: body structures and functions, activity limitations, and/or participation restrictions. An evolving clinical presentation with changing characteristics. Clinical decision-making of moderate complexity using standardized patient assessment instrument and/or measurable assessment of functional outcome. Response to Evaluation: The session was tolerated well. Pt without signs of distress or discomfort throughout session, vitals stable. Bed alarm was on at end of session. Seizure pads present at end of session. Call garcia was in patient's reach at end of session. Pain: Patient unable to report pain, utilized USR Scale Respiratory: 0 = Baseline respiratory rate, normally/or ventilator compliance Physiology: 0 = stable vital signs Facial Expression 0 = neutral or smiling Body Language: 0 = relaxed, normal muscle tone Consolability: 0 = no need to console, content, relaxed USR Total Pain Score: 0 Other Rehabilitation Considerations: Patient's progress may be impaired by the following potential barriers: Cognitive impairments. Poor activity tolerance. Medical condition. Cognitive impairments. Communication barriers. Support Structure: Support structure is good. Nurse. Caregiver. Strengths: Social/family support. Patient Goals: Unable to communicate. The patient's therapy goals are based on limitations/impairments in the following areas: Balance. Cognition/Memory. Bed Mobility. Strength. Transfers. Gait. Exertional Intolerance. Short Term Goals: 1. Pt will transfer supine to/from sitting edge of bed with Min assist in 2 weeks. 2. Pt will transfer sit to/from stand using least restrictive assistive device with Min assist in 2 weeks. 3. Pt will ambulate 150 feet using least restrictive assistive device with Min assist in 2 weeks. Assisted Goals: 1. Pt will transfer supine to/from sitting edge of bed with Modified independence in 3 weeks. 2. Pt will transfer sit to/from stand using least restrictive assistive device with supervision in 3 weeks. 3. Pt will ambulate 150 feet using least restrictive assistive device with supervision in 3 weeks. PLAN Treatment Frequency, Duration and Interventions: Restorative Physical Therapy is recommended for 5x/week for 3 weeks Treatment is to include: Gait Training. Manual Therapy. Neuromuscular Re-education. Therapeutic Activity. Therapeutic Exercise. Self Care/Home Management. Equipment Provided: None issued this visit. Equipment Recommended: To be assessed. Recommended Physical Therapy Follow Up: Upon acute care discharge, the following is currently recommended: Anticipate patient will have inpatient rehab needs beyond the acute stay. Recommended Consults: None currently. Development of Plan of Care: Participants included: Patient. Nurse. Goal Review Visit Number: 1 Visit Number: Today's visit is number 1 Program: Neuro (Therapist may be reached on Vocera) SESSION: Duration: 38 CHARGES: - 0 Units - 0 Units - 0 Units - 0 Units 77401 - CHARGE - PT EVAL; MODERATE COMPLEXITY 3 Units - NEURO VISIT 1 Units - ORDER - Physical Therapy Treatment 1 Units - ORDER - PHYSICAL THERAPY CONSULT 1 Units Total treatment minutes: 38.00 Minutes Electronically Signed by: Yovanny Nation PT, DPT, 01/02/2021 5:18:09 PM * Plan of Care - Keisha Garcia GN - 01/02/2021 11:42 AM EDT Problem: Risk for Falls Goal: No falls during hospitalization Description: Patient will not fall during hospitalization. Outcome: Progressing Problem: Sensory Perception is less than 4 (< 4) Goal: Improve Sensory Perception Outcome: Progressing Problem: Moisture is less than 4 (< 4) Goal: Eliminate Moisture Outcome: Progressing Problem: Nutrition is Less than 3 (< 3) Goal: Improve Nutrition Outcome: Progressing * Plan of Care - Frank Gandara RN - 01/02/2021 6:20 AM EDT Problem: Risk for Falls Goal: No falls during hospitalization Description: Patient will not fall during hospitalization. Outcome: Progressing Problem: Knowledge Deficit Goal: Knowledge - personal safety Description: Patient will verbalize understanding of fall prevention. Outcome: Progressing Problem: Sensory Perception is less than 4 (< 4) Goal: Improve Sensory Perception Outcome: Progressing Problem: Moisture is less than 4 (< 4) Goal: Eliminate Moisture Outcome: Progressing Problem: Activity is less than 4 (< 4) Goal: Improve Activity Outcome: Progressing Problem: Mobility is less than 4 (< 4) Goal: Improve Mobility Outcome: Progressing Problem: Nutrition is Less than 3 (< 3) Goal: Improve Nutrition Outcome: Progressing Problem: Friction Shear is less than 3 (< 3) Goal: Eliminate Friction Shear Outcome: Progressing Problem: Spiritual Care Plan Goal: To assess spiritual care needs and hopes and mobilize spiritual resources for patients/families/caregivers that support/enhance quality of life related to hospitalization Description: To assess spiritual care needs and hopes and mobilize spiritual res ources for patients/families/caregivers that support/enhance quality of life rel ated to hospitalization. Outcome: Progressing * Assessment & Plan Note - Traci Gr, OT - 01/01/2021 12:01 PM EDT Occupational Therapy Acute Care Neurology Examination Medical Diagnosis: acute encephalopathy, seizures History of Present Illness: Pt with h/o Oligodendroglioma, Hydrocephalus s/p [employer] shunt, Pituitary adenoma with transphenoidal resection, Epilepsy, DONNA on CPAP, who resides in a halfway, and presents to the hospital today as a transfer from [facility] ED after seizures. Date of Admission: 12/28/2020 7:49:00 PM Demographics: Age: 65 Gender: Male Past Medical History and Radiographics: Significant rehabilitation considerations: Asthma? Brain tumor? COPD (chronic obstructive pulmonary disease)? Hyperlipidemia? Hypertension? Osteoporosis? Seizures? Stroke? Thyroid disease brain surgery Rehabilitation Precautions/Restrictions: OOB with assist, aspiration precautions, continous EEG, helmet when OOB due to baseline seizures SUBJECTIVE Premorbid Level of Activities of Daily Living: Patient was not functionally independent with all ADL, but received set up and support in his halfway environment. 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 Social History: Patient does not live alone. Patient lives with other residents at a halfway . If needed: Home health aide assists. Nurse assists. Resides in halfway with assist for ADL: and IADL. Home Environment: snf is fully accessible. Equipment Owned: Power wheelchair. snf set up has equipment needed for his needs per patient. Unable to obtain greater detail from patient at this time. Pain: Patient has no complaints of pain currently. Pain Medication Today: no. OBJECTIVE General Observation: Alert gentleman watching tv in bed. Seizure pads in place. Cooperative for some of evaluation. Bed alarm was on at start of session. Seizure pads present at start of session. Vital Signs: Stable. UPPER EXTREMITY FUNCTION Hand Dominance: Unable to determine at this time. Range of Motion: Bilateral upper and lower extremity movement during evaluation was functional. Patient did not follow commands for full ROM or strength assessment. Strength: Bilateral upper and lower extremity movement during evaluation was functional. Patient did not follow commands for full ROM or strength assessment. Skin Integrity Screen: Visible skin grossly intact. Tone/Spasticity: Grossly functional throughout. Sensation: No gross deficits identified. Coordination: Gross motor skills were functional though untimely for unfamiliar tasks. LOWER EXTREMITY FUNCTION: Bilateral upper and lower extremity movement during evaluation was functional. Patient did not follow commands for full ROM or strength assessment. Cognitive Screen: Responsiveness: Alert. Orientation: Unable to fully determine. Appeared oriented to self, and was aware he was not in his own halfway. Following Commands: Able to follow 1 step commands. Memory: Patient not fully participative in cognitive assessment of memory. Appeared functional for brief tasks. . Communications: Does not fluently communicate verbally - but is able to make his needs known when asked, or when trying to talk about going home. Executive Function: Insight. impaired Judgement. impaired Execution. impaired Planning. impaired Attention: Impaired. Attention to unfamiliar tasks or tasks patient does not wish to participate in, is functionally limited. Cognitive Test Score: Not formally assessed. score = N/A Vision Screen: No gross deficits identified. Perception: Perception was within normal limits with today's examination. Balance: Static balance in a seated position: supervision Dynamic balance in a seated position: close supervision Nursing states patient has been stand-pivot transfers in his halfway. Patient states he uses power chair at home. Endurance: fair. Activities of Daily Living: Feeding: Supervision. Reported by patient/family. Grooming: Supervision. Reported by patient/family. Bathing - Upper Body: Minimal assistance. Reported by patient/family. Bathing - Lower Body: Minimal assistance. Reported by patient/family. Upper Body Dressing: Modified Independent. Reported by patient/family. Lower Body Dressing: Modified Independent. Observed patient during task. Toileting: Not assessed. Toilet Transfer: Not assessed. Functional Mobility: Bed mobility functional for lower body dressing. Outcome Measure: [facility]-PAC "6 Clicks" Daily Activity Inpatient Short Form: Putting on and taking off regular lower body clothing: No assistance (4) Bathing (including washing, rinsing, and drying): A little assistance (3) Toileting (including use of toilet, bedpan, or urinal): A little assistance (3) Putting on and taking off regular upper body clothing: No assistance (4) Taking care of personal grooming such as brushing teeth: A little assistance (3) Eating meals: A little assistance (3) Raw Score: 20 /24 Interventions: None provided today. Splinting: No splint issued today. Education: Educational needs: Role of OT, performance needed for safe discharge. Barriers to Learning: Cognitive limitations. Desire and motivation. Language barrier: Psychosocial limitations Learning Preference: Auditory. Mode of education provided: Explanation. Demonstration. Audience: Patient. Education Provided: Role of OT, performance needed for safe discharge. . Response: Indicates understanding. ASSESSMENT Moderate Complexity Evaluation: An occupational profile and medical and therapy history, which includes an expanded review of medical and/or therapy records and additional review of physical, cognitive, or psychosocial history related to current functional performance. An assessment(s) that identifies 3-5 performance deficits (i.e., relating to physical, cognitive, and psychosocial skills) that result in activity limitations and/or participation restrictions. Patient may present with comorbidities that affect occupational performance. Minimal to moderate modification of tasks or assistance (i.e., physical or verbal) with assessment(s) is necessary to enable patient to complete evaluation component. Response to Evaluation: The session was tolerated fair, as evidenced by: Patient willingness to participate was limited. Bed alarm was on at end of session. Seizure pads present at end of session. Floor pads present at end of session. Call garcia was in patient's reach at end of session. Pain: Patient has no complaints of pain currently. Strengths: Accessible home environment. Involvement in agency allowing maximum independence in the community with supportive services available. Patient Goals: Patient's functional goals: "Go home now..." The patient's therapy goals are based on limitations/impairments in the following areas: Baseline level impairments that do not require restorative therapy at this time. Short Term Goals: Assisted Goals: Not applicable. PLAN Treatment Frequency, Duration and Interventions: Occupational Therapy services are discontinued at this time secondary to: Patient receiving care through another provider. Equipment Provided: None issued this visit. Equipment Recommended: None, patient has necessary equipment at home. Recommended Occupational Therapy Follow Up: Upon acute care discharge, the following is currently recommended: None at this time. Recommended Consults: None currently. Development of Plan of Care: Participants included: pt. There was no change to plan of care today. Goal Review Visit Number: 1 Visit Number: Today's visit is number 1 Program: Neuro (Therapist may be reached on Vocera) SESSION: Duration: 35 CHARGES: - 0 Units - 0 Units - 0 Units 10475 - CHARGE - OT EVAL; MODERATE COMLEXITY 2 Units - NEURO VISIT 1 Units - ORDER - OCCUPATIONAL THERAPY CONSULT 1 Units Total treatment minutes: 30.00 Minutes Electronically Signed by: Traci GUERRIER OT 01/01/2021 12:39:35 PM * Plan of Care - Manasa Degroot RN - 01/01/2021 9:42 AM EDT Problem: Risk for Falls Goal: No falls during hospitalization Description: Patient will not fall during hospitalization. Outcome: Progressing Problem: Knowledge Deficit Goal: Knowledge - personal safety Description: Patient will verbalize understanding of fall prevention. Outcome: Progressing Problem: Sensory Perception is less than 4 (< 4) Goal: Improve Sensory Perception Outcome: Progressing Problem: Moisture is less than 4 (< 4) Goal: Eliminate Moisture Outcome: Progressing Problem: Activity is less than 4 (< 4) Goal: Improve Activity Outcome: Progressing Problem: Mobility is less than 4 (< 4) Goal: Improve Mobility Outcome: Progressing Problem: Nutrition is Less than 3 (< 3) Goal: Improve Nutrition Outcome: Progressing Problem: Friction Shear is less than 3 (< 3) Goal: Eliminate Friction Shear Outcome: Progressing Problem: Spiritual Care Plan Goal: To assess spiritual care needs and hopes and mobilize spiritual resources for patients/families/caregivers that support/enhance quality of life related to hospitalization Description: To assess spiritual care needs and hopes and mobilize spiritual res ources for patients/families/caregivers that support/enhance quality of life rel ated to hospitalization. Outcome: Progressing * Plan of Care - Manasa Degroot RN - 12/31/2020 8:28 AM EDT Problem: Risk for Falls Goal: No falls during hospitalization Description: Patient will not fall during hospitalization. 12/31/2020827 by Manasa Degroot RN Outcome: Progressing 12/30/20202049 by Manasa Degroot RN Outcome: Progressing Problem: Knowledge Deficit Goal: Knowledge - personal safety Description: Patient will verbalize understanding of fall prevention. 12/31/2020827 by Manasa Degroot RN Outcome: Progressing 12/30/20202049 by Manasa Degroot RN Outcome: Progressing * Assessment & Plan Note - Estrella Delarosa CCC-SEMI TRUCK DRIVER - 12/30/2020 3:07 PM EDT Speech Language Pathology Acute Care - Clinical Swallow Evaluation Admitting Diagnosis: Seizures acute encephalopathy History of Present Illness: Pt with h/o Oligodendroglioma, Hydrocephalus s/p [employer] shunt, Pituitary adenoma with transphenoidal resection, Epilepsy, DONNA on CPAP, who resides in a halfway, and presents to the hospital today as a transfer from [facility] ED after seizures. Date of Admission: 12/28/2020 7:49:00 PM Demographics: Age: 65 Gender: Male Pertinent Past Medical History and Radiographics: Significant rehabilitation considerations: Asthma? Brain tumor? COPD (chronic obstructive pulmonary disease)? Hyperlipidemia? Hypertension? Osteoporosis? Seizures? Stroke? Thyroid disease brain surgery Pertinent Medications and Allergies: Significant rehabilitation considerations: Allergies: Adhesive Tape Asenapine Felbamate Haldol [haloperidol] Lurasidone Rehabilitation Precautions/Restrictions: OOB with assist, aspiration precautions, continuous EEG, helmet when OOB due to baseline seizures SUBJECTIVE Patient Report: Pt did not provide report Premorbid Swallowing Function/Diet Textures: Premorbid Diet Textures: Per records from halfway pt is on a soft solid, Mediterranean diet and food is cut into 1/2" pieces. Foods are ground per pts request. Pt is on nectar thick liquids. Pt is fed by staff on more lethargic days. Current Diet Textures: NPO. pending results of the swallow evaluation Occupation: n/a Social History: Patient does not live alone. Patient lives with other residents at a halfway . If needed: Caregiver is willing to assist. Pain: Patient unable to report pain, utilized USR Scale Respiratory: 0 = Baseline respiratory rate, normally/or ventilator compliance Physiology: 0 = stable vital signs Facial Expression 0 = neutral or smiling Body Language: 0 = relaxed, normal muscle tone Consolability: 0 = no need to console, content, relaxed USR Total Pain Score: 0 Pain Medication Today: no. Goals: None. OBJECTIVE General Observation: Pt was lying in bed awake upon arrival. Pt with continuous EEG in place. Pt in 4 point restraints. Bed alarm was on at start of session. Cognitive Status: Pt did not follow commands or respond to yes/no questions. Respiratory Support: No respiratory support required. Oral Motor Exam: Labial: no asymmetry appreciated Dentition: Present. Swallow Reflex: Observed. Drooling: None. Dysarthria: Dysarthria was not assessed at this time secondary to: pt did not verbalize Consistencies Tested: [place] Thick Liquid. 9 trials presented. Presented via Cup. No functional deficits noted with this consistency. Puree. 6 trials presented. Presented via Spoon. No functional deficits noted with this consistency. Dental Soft. 7 trials presented. Presented via Spoon. No functional deficits noted with this consistency. Compensatory Strategies: Not tested. Outcome Measures: Functional Oral Intake Scale score: 5 - Total oral intake of multiple consistencies requiring special preparation. Interventions: None provided today. Education: Educational needs: Diet texture recommendations. Safety. Swallowing precautions. Plan of care. Barriers to Learning: Cognitive limitations. Learning Preference: pt did not specify Mode of education provided: Explanation. Audience: Patient. Nurse. Education Provided: Diet texture recommendations. Safety. Swallowing precautions. Plan of care. Response: No evidence of learning. RN verbalized understanding ASSESSMENT Response to Evaluation: The session was tolerated well. Pt tolerated trials presented without s/s of aspiration. Outside records did not specify reason for modified diet or if previous instrumental testing has been completed. Plan to continue to assess and determine if diet advancement is a possibility. Bed alarm was on at end of session. The following restraints were on patient at end of session: 4 point Strengths: good tolerance of PO Diet Recommendations: Dental soft diet. Thin liquids. downgrade to ground as needed (consistent with baseline) Swallow Precautions/Recommendations: Aspiration Precautions Limit distractions. Assistance with meals. 1:1 Supervision. Medication Recommendations: Place in a puree consistency. Pain: Patient unable to report pain, utilized USR Scale Respiratory: 0 = Baseline respiratory rate, normally/or ventilator compliance Physiology: 0 = stable vital signs Facial Expression 0 = neutral or smiling Body Language: 0 = relaxed, normal muscle tone Consolability: 0 = no need to console, content, relaxed USR Total Pain Score: 0 Barriers to Progress/Discharge: Patient's progress may be impaired by the following potential barriers: No potential barriers to progress. The patient's therapy goals are based on limitations/impairments in the following areas: Swallowing. Short Term Goals: 1. Pt will consistently tolerate a dental soft and nectar thick liquid diet in 2/2 sessions within 1 week Assisted Goals: 1. Pt will tolerate baseline diet without overt s/s of aspiration within 2 weeks. PLAN Treatment Frequency, Duration and Interventions: Restorative Speech/Language Pathology services recommended for 2x/week Intervention Considerations/Suggestions for Future Therapy Sessions: ensure tolerance of current diet, determine if diet advancement is appropriate (baseline need for modified diet is unknown), determine baseline cognitive and communication needs and assess as appropriate. Equipment Provided: None issued this visit. Equipment Recommended: None. Recommended Speech Therapy Follow Up: Upon acute care discharge, the following is currently recommended: 24 hour supervision. Recommended Consults: None currently. Development of Plan of Care: Participants included: Patient. Nurse. Goal Review Visit Number: 1 Visit Number: Today's visit is number 1 Program: Neuro (Therapist may be reached on Vocera) SESSION: Duration: 49 CHARGES: 30196 - CHARGE-CLINICAL SWALLOW 3 Units - NEURO VISIT 1 Units - ORDER - Speech Treatment 1 Units - ORDER - SPEECH THERAPY CONSULT 1 Units Total treatment minutes: 49.00 Minutes Electronically Signed by: Estrella Delarosa MS,CARINA SEMI TRUCK DRIVER, SEMI TRUCK DRIVER 12/30/2020 4:00:13 PM * Plan of Care - Manasa Degroot RN - 12/30/2020 3:00 PM EDT Problem: Risk for Falls Goal: No falls during hospitalization Description: Patient will not fall during hospitalization. Outcome: Progressing Problem: Knowledge Deficit Goal: Knowledge - personal safety Description: Patient will verbalize understanding of fall prevention. Outcome: Progressing documented in this encounter Plan of Treatment Date/Time Name Type Priority Associated Diag noses 12/28/2020 11:32 PM EDT EEG Routine Study Neurology Routine Order Schedule Name Type Priority Associated Diag noses Once for 1 Occurrences starting 12/29/19 21 until 12/28/2020 EEG Routine Study Neurology Routine Continuous for 30 Days starting 12/30/19 21 until 12/29/2020 EEG Video Monitoring Neurology Routine Health Maintenance Due Date Last Done Comments MMR Vaccines (1 of 1 - 1957 Standard series) Varicella Vaccines (1 of 1956 2 - 2-dose childhood series) HIV Screening 1969 Colon Cancer Screening 10 2006 yrs Zoster Vaccines (1 of 2) 2006 DTaP,Tdap,and Td Vaccines 08/28/2020 07/31/2020 (2 - Td or Tdap) Influenza Vaccine 01/26/2021 03/01/2009 Pneumococcal Vaccine: 65+ 2021 Years (1 of 1 - PPSV23) COVID-19 Vaccine Completed 07/13/2020, 06/15/2020 Hepatitis C Screening (B. Completed 12/29/[id number]) HIB Vaccines Aged Out No longer eligible based on patient's age to complete this topic Hepatitis A Vaccines Aged Out No longer eligibl e based on patient's age to complete this topic Hepatitis B Vaccines Aged Out No longer eligibl e based on patient's age to complete this topic IPV Vaccines Aged Out No longer eligible based on patient's age to complete this topic Pneumococcal Vaccine: Aged Out No longer eligib le based on patient's age to Pediatrics (0 to 5 Years) complete this topic and At-Risk Patients (6 to 64 Years) documented as of this encounter Procedures Comments Procedure Name Priority Date/Time Associated Diag nosis COVID-19 PCR Routine 01/03/2021 11:39 AM EDT RADIOLOGY REPORT 01/02/2021 9:27 PM EDT EEG ROUTINE STUDY Routine 01/02/2021 4:26 PM EDT AMMONIA LEVEL STAT 01/02/2021 10:06 AM EDT AMMONIA LEVEL Routine 01/01/2021 1:36 PM EDT CBC STAT 12/31/2020 11:09 AM EDT BASIC METABOLIC PANEL STAT 12/31/2020 11:09 AM EDT XR CHEST FRONTAL ONLY Routine 12/31/2020 [id number] 5:26 AM EDT EEG VIDEO MONITORING Routine 12/30/2020 9:46 PM EDT LAB RESULTS 12/29/2020 (OUTSIDE/HISTORICAL) 7:30 PM EDT RADIOLOGY REPORT 12/29/2020 7:30 PM EDT CARDIAC REPORT 12/29/2020 7:30 PM EDT EEG ROUTINE STUDY Routine 12/29/2020 11:36 AM EDT XR ABDOMEN AP SUPINE AND Routine 12/29/2020 LATERAL VIEW [id number] 6:54 AM EDT XR SKULL COMPLETE [id number] Routine 12/29/2020 6:54 AM EDT XR CHEST FRONTAL AND Routine 12/29/2020 LATERAL 40533 6:54 AM EDT XR SKULL LIMITED [id number] STAT 12/29/2020 3:[address] HEAD WITHOUT CONTRAST STAT 12/28/2020 [id number] 11:18 PM EDT RESPIRATORY PATHOGEN Routine 12/28/2020 PANEL 11:11 PM EDT COVID-19 PCR Routine 12/28/2020 11:11 PM EDT LAMOTRIGINE Routine 12/28/2020 9:59 PM EDT LEVETIRACETAM LEVEL Routine 12/28/2020 9:59 PM EDT BLOOD CULTURE Routine 12/28/2020 9:59 PM EDT SEDIMENTATION RATE, Routine 12/28/2020 AUTOMATED 9:59 PM EDT CBC AND DIFFERENTIAL Routine 12/28/2020 9:59 PM EDT INFLAMMATORY C-REACTIVE Routine 12/28/2020 PROTEIN (CRP) 9:59 PM EDT PHENYTOIN LEVEL, TOTAL Routine 12/28/2020 9:59 PM EDT PHENOBARBITAL LEVEL Routine 12/28/2020 9:59 PM EDT COMPREHENSIVE METABOLIC STAT 12/28/2020 PANEL 9:59 PM EDT XR CHEST FRONTAL ONLY STAT 12/28/2020 [id number] 9:41 PM EDT EKG 12-LEAD - CMAXX 12/28/2020 REPORT 9:20 PM EDT EKG 12-LEAD - CMAXX 12/28/2020 REPORT 9:20 PM EDT EKG 12-LEAD STAT 12/28/2020 9:20 PM EDT EKG 12-LEAD - CMAXX 12/28/2020 REPORT 9:20 PM EDT documented in this encounter Results * COVID-19 PCR (01/03/2021 11:39 AM EDT) Specimen Nasopharyngeal Swab [facility] Description CLINICAL PATHOLOGY SARS CoV-2 2019 nCoV Real-Time RT-PCR: 2019 nCoV Real-Nish e [facility] NOT DETECTED RT-PCR: NOT DETECTED [facility] Pathology Assay performed Test performed using Live Mobile [facility] Zmags Xpert Xpress [facility] SARS-CoV-2/Flu/RSV assay. This Pathology test is only for use under Food and Drug Administration's Emergency Use Authorization. Additional information is available on the following FDA websites for healthcare providers and patients https://www.fda.gov/media/2900 35/download, https://www.fda.gov.media/1422 36/download Influenza A Not Detected Not Detected [facility]ology Influenza B Not Detected Not Detected [facility] RSV Not Detected Not Detected [facility]ology First COVID-[address] [facility] Test? CLINICAL PATHOLOGY Employed in [facility] CLINICAL setting? PATHOLOGY Symptomatic for NO [facility] COVID-19 as CLINICAL defined by CDC? PATHOLOGY Date of symptom UNKNOWN [facility] onset? CLINICAL ([id number]) PATHOLOGY Hospitalized NO [facility] for COVID-19? CLINICAL PATHOLOGY Admitted to ICU UNKNOWN [facility] for COVID-19? CLINICAL PATHOLOGY Resident in a [facility] CLINICAL (group) care PATHOLOGY setting? ? UNKNOWN [facility] CLINICAL PATHOLOGY Specimen Nasopharyngeal Swab Performing Organization Address City/State/ZIP Code P ahmet Number [facility]ICAL [address], [place] [address] PATHOLOGY [facility] [address] [place], [place] [address] Clin Pathology * RADIOLOGY REPORT (01/02/2021 9:27 PM EDT) Narrative Performed At This result has an attachment that is n ot available. * EEG Routine Study (01/02/2021 4:26 PM EDT) Narrative Performed At Vance Jauregui MD EXTERNAL NON-INTERFACED LAB 01/02/2021 4:38 PM EEG REPORT NUMBER [id number] DATE OF PROCEDURE: 01/02/2021 HISTORY: The patient is a 65 y.o. male with a hi story of epilepsy, [employer] shunt placement for hydrocephalus with a history of oligodendroglioma, coming into the hosp ital in the setting of altered mentation and fever. He was on video EEG monitoring from 12/30/20 to 12/31/20 With multiple brief se izures, which improved. This is a follow-up EEG No current facility-administered medica tions on file prior to encounter. Current Outpatient Medications on File Prior to Encounter Medication Sig Dispense Refill Bisacodyl 10 MG Rectal Suppository (D ULCOLAX) Place 10 mg rectally On day 4 of no bowl movement. Calcium Carbonate-Vitamin D 500-200 M G-UNIT Oral Tablet (OSCAL-500) Take 1 tablet by mouth Two Times Daily Fleet Enema 7-19 GM/118ML Rectal Enem a Place 133 mLs rectally daily as needed for ConstipationOn day 5 of no bowl mo vement. Fluticasone Propionate 50 MCG/ACT Jc al Suspension (FLONASE) 2 sprays by Nasal route daily hydrOXYzine HCl 25 MG Oral Tablet (AT ARAX) Take 25 mg by mouth Three times daily hydrOXYzine HCl 25 MG Oral Tablet (AT ARAX) Take 25 mg by mouth as needed for Itching Lactulose 10 GM/15ML Oral Solution (C HRONULAC) Take 20 mLs by mouth Two Times Daily lamoTRIgine (LAMICTAL) 200 MG tablet Take 400 mg by mouth nightly lamoTRIgine 200 MG Oral Tablet (LaMIC gaby) Take 200 mg by mouth every morning levETIRAcetam 500 MG Oral Tablet (KEP PRA) Take 1,500 mg by mouth Two Times Daily linaCLOtide 290 MCG Oral Capsule (LATOSHA ZESS) Take 290 mcg by mouth daily Magnesium Hydroxide 400 MG/5ML Oral S uspension (MILK OF MAGNESIA) Take 30 mLs by mouth daily as needed for ConstipationOn day 3 of no bowl movemen t. PARoxetine HCl 20 MG Oral Tablet (PAX IL) Take 20 mg by mouth every morning Take with 40 mg dose in t he morning to equal 60 mg daily PARoxetine HCl 40 MG Oral Tablet (PAX IL) Take 40 mg by mouth every morning Take with 20 mg dose in t he morning to equal 60 mg daily PHENobarbital 64.8 MG Oral Tablet (BENJAMIN GIA) Take 64.8 mg by mouth Two Times Daily Phenytoin Sodium Extended 100 MG Oral Capsule (Dilantin) Take 100 mg by mouth Two Times Daily Polyethylene Glycol 3350 17 GM Oral P acket (MIRALAX) Take 17 g by mouth Two Times Daily Please substit [place] bottle for packets, if packets are unavailable. Prazosin HCl 1 MG Oral Capsule (MINIP RESS) Take 1 mg by mouth nightly QUEtiapine Fumarate 300 MG Oral Table t (SEROquel) Take 300 mg by mouth Two Times Daily QUEtiapine Fumarate 50 MG Oral Tablet (SEROquel) Take 50 mg by mouth Two Times Daily Senna 8.6 MG Oral Tablet Take 2 table ts by mouth nightly Simvastatin 20 MG Oral Tablet (ZOCOR) Take 20 mg by mouth nightly Tamsulosin HCl 0.4 MG Oral Capsule (F NELL) Take 0.4 mg by mouth daily traZODone HCl 100 MG Oral Tablet (RICA YREL) Take 200 mg by mouth nightly Vitamin D (Ergocalciferol) 1.25 MG (5 0000 UT) Oral Capsule (ERGOCALCIFEROL) Take 50,000 Units by m outh every 7 (seven) days [DISCONTINUED] Phenytoin Sodium Exten ded 100 MG Oral Capsule (DILANTIN) Take 100 mg by mouth as need ed Scheduled Meds: cloBAZam 5 mg Oral BID enoxaparin 40 mg Subcutaneous Daily lactulose 20 mL Oral BID lamoTRIgine 200 mg Oral Daily lamoTRIgine 400 mg Oral Nightly levETIRAcetam 1,500 mg Oral BID levoFLOXacin 750 mg Oral Daily paroxetine 20 mg Oral Daily paroxetine 40 mg Oral Daily PHENobarbital 64.8 mg Oral BID phenytoin 100 mg Oral BID QUEtiapine 300 mg Oral BID trazodone 200 mg Oral Nightly Continuous Infusions: PRN Meds:.hydrOXYzine TECHNICAL DESCRIPTION: This digital EEG was recorded using 2 E KG and 21 scalp and/or ear electrodes. It was reviewed in referential and bip olar montages following reformatting in the 10-20 Int ernational electrode placement system. EEG INTERPRETATION: Background in the most stimulated state consisted of 20-30 microvolt, 5-6 Hz symmetric but poorly sustained posterior dominant rhythm with good reactivity to eye opening. Faster frequencies including 5-10 microvolts, 12-14 Hz activity was seen in the frontal leads. There were frequent sharp waves in the left anterior quadrant with amplitudes of 40-100 microvolts, a nd maximum negativity in F7/F3/C3/P3. In addition, there are josé manuel quent sharp waves in the right fronto-central region with about the same amplitude and maximum negativity in Fp2/F4 > C4. There were frequent runs of 80-120 micr ovolts, 12-14 Hz discharges in the left hemisphere, at t imes with spread to the right hemisphere, lasting for 3-4 secon ds. The mentioned discharges at times were followed by 2- 3 seconds of generalized attenuation and were occasionally assoc iated with arousal and were suspicious to be ictal in nature. Drowsiness/Sleep [] The patient remains only in the awak e state throughout the study. [] The patient is intubated, comatose a nd unresponsive during the recording. [] The patient is not intubated, but co matose and unresponsive during the recording. [] The patient is stuporous throughout the recording. [] During drowsiness, there is increase d emergence of theta and delta rhythms, but full sleep is not ac hieved during this recording. [x] During drowsiness, there is increas ed emergence of theta and delta rhythms, and during sleep the fol lowing sleep structures were seen: [] Vertex sharp transients [] Symmetric sleep spindles [] POSTs [] K-complexes [] Other: Photic stimulation Photic stimulation with flash frequenci es of 2-21 Hz is not associated with posterior photic drivin g. No photoparoxysmal response was seen. IMPRESSION: This routine EEG done in th e awake and asleep states is abnormal due to : 1) Frequent sharp waves, multifocal, le ft anterior quadrant and right fronto-central 2) Frequent runs of high amplitude beta -range discharges in the left hemisphere, at times with spread t o the right hemisphere, lasting for 3-4 seconds. The mentioned discharges at times were followed by 2-3 seconds of generalized attenuation and were occasionally associated with arousal, a nd in the latter case were suspicious to be ictal in nature. 3) Slow posterior dominant rhythm The above findings are suggestive of a multifocal epilepsy. In addition, there is evidence suggestive of a mild diffuse encephalopathy, non-specific in etiolog y. Compared to the last video EEG on 1 to 12/31/20, today's recording shows some improvement with l ess frequent and shorter duration of ictal and interictal discha rges. Performing Organization Address City/[facility]/ZIP Code P ahmet Number EXTERNAL NON-INTERFACED LAB * Ammonia Level (01/02/2021 10:06 AM EDT) Ammonia 57 16 - 60 umol/L [facility] Pathology Specimen Plasma Performing Organization Address City/[facility]/ZIP Code P ahmet Number [facility] [address], [place] [address] PATHOLOGY [facility] [address] [place], [place] [address] Clin Pathology * Ammonia Level (01/01/2021 1:36 PM EDT) Ammonia 231 (H)Comment: Hemolyzed 16 - 60 umol/L [facility] Pathology Specimen Plasma Performing Organization Address [facility] Code P ahmet Number [facility] [address] [place], [place] [address] PATHOLOGY [facility] [address] [place], [place] [address] Clin Pathology * Basic Metabolic Panel (12/31/2020 11:09 AM EDT) Bicarbonate 25 22 - 29 mmol/L [facility] Chloride 98 98 - 107 mmol/L [facility] Creatinine 0.68 (L) 0.70 - 1.20 mg/dL [facility] Glucose 115 70 - 140 mg/dL [facility] Potassium 3.5 3.4 - 5.1 mmol/L [facility] Sodium 135 (L) 136 - 145 mmol/L [facility] Blood Urea 8 8 - 23 mg/dL [facility] Pathology Anion Gap 12 8 - 15 mmol/L [facility] Osmolality, Brain 279 275.0 - 300.0 [facility] mosm/kg [facility] BUN/Cre Ratio 12 [facility] Calcium 8.8 8.8 - 10.2 mg/dL [facility]ology GFR Non >90 >60 mL/min/1.73m2 [facility] [place] 2008 Med [facility] Clin CDK-EPI Pathology GFR >90 >60 mL/min/1.73m2 [facility] 2008 Med [facility] Clin CKD-EPI Pathology Specimen Plasma Performing Organization Address City/State/ZIP Code P ahmet Number [facility] [address] [place], [place] [address] [address] Clin Pathology * CBC (12/31/2020 11:09 AM EDT) White Blood 5.0 4.00 - 10.00 10*3/uL [facility] ate Cell [facility] Red Blood Cell 4.22 (L) 4.60 - 6.10 10*6/uL [facility] Hemoglobin 12.9 (L) 13.5 - 18.0 g/dL [facility] Hematocrit 37.4 (L) 41.0 - 53.0 % [facility] Mean Cell 88.7 80.0 - 96.0 fL [facility] Volume [facility] Clin Pathology Mean Cell 30.6 27.0 - 33.0 pg [facility] Hemoglobin Med [facility] Clin Pathology Mean Cell Hgb 34.5 32 - 36 g/dL [facility] Conc [facility] Pathology Red Cell Dist 13.6 11.5 - 14.5 % [facility] Width [facility]ology Platelet Count 166 150 - 400 10*3/uL [facility] Pathology Specimen EDTA Whole Blood Performing Organization Address City/State/ZIP Code P ahmet Number [facility] [address] [place], [place] [address] PATHOLOGY [facility] [address] [place], [place] [address] Clin Pathology * XR Chest Frontal Only (12/31/2020 5:26 AM EDT) Specimen Narrative Performed At [facility] RADIOLOGY PROCEDURE INFORMATION: Exam: XR Chest Exam date and time: 12/31/2020 5:15 AM Age: 65 years old Clinical indication: Other nonspecific abnormal finding of lung field; Other: Fever, possible early infiltrates on pr ior cxr TECHNIQUE: Imaging protocol: XR of the chest. Views: 1 view. COMPARISON: CR XR CHEST FRONTAL AND LATERAL [id number] 6:19 AM FINDINGS: Tubes, catheters and devices: Shunt cat heter overlies the right hemithorax. Lungs: Minimal patchy airspace disease at the right lung base. Pleural spaces: Unremarkable. No pleura l effusion. No pneumothorax. Heart/Mediastinum: Unremarkable. No car diomegaly. Diaphragm: There is an elevated right h emidiaphragm present on the current examination. Bones/joints: Unremarkable. IMPRESSION: 1. Minimal patchy airspace disease at t he right lung base. 2. Followup radiographs recommended aft er appropriate therapy. THIS DOCUMENT HAS BEEN ELECTRONICALLY S IGNED BY PETE COWAN MD Procedure Note Interface, Received Via [facility] - 12/31/2020 7:08 AM EDT PROCEDURE INFORMATION: Exam: XR Chest Exam date and time: 12/31/2020 5:15 AM Age: 65 years old Clinical indication: Other nonspecific abnormal finding of lung field; Other: Fever, possible early infiltrates on prior cxr TECHNIQUE: Imaging protocol: XR of the chest. Views: 1 view. COMPARISON: CR XR CHEST FRONTAL AND LATERAL [id number] 12/29/2020 6:19 AM FINDINGS: Tubes, catheters and devices: Shunt catheter overlies the right hemithorax. Lungs: Minimal patchy airspace disease at the right lung base. Pleural spaces: Unremarkable. No pleural effusion. No pneumothorax. Heart/Mediastinum: Unremarkable. No cardiomegaly. Diaphragm: There is an elevated right hemidiaphragm present on the current examination. Bones/joints: Unremarkable. IMPRESSION: 1. Minimal patchy airspace disease at th e right lung base. 2. Followup radiographs recommended afte r appropriate therapy. THIS DOCUMENT HAS BEEN ELECTRONICALLY SIGNED BY PETE COWAN MD Performing Organization Address City/State/ZIP Code P ahmet Number [facility] RADIOLOGY [address] [place] [address] * EEG Video Monitoring (12/30/2020 9:46 PM EDT) Narrative Performed At Vance Jauregui MD EXTERNAL NON-INTERFACED LAB 12/31/2020 4:51 PM COMPUTER ASSISTED DIGITAL VIDEO EEG [facility] VIDEO-EEG REPORT NUMBER [id number] (2nd day of the recording for 19 hours and 14 minutes) + Summary of t he entire video-EEG recording at the end of this report DATE OF PROCEDURE: From 12/30/2020 at 16:43 to 12/31/2020 at 11:57 HISTORY: The patient is a 65 y.o. male with a hi story of epilepsy, [employer] shunt placement for hydrocephalus with a history of oligodendroglioma, coming into the hosp ital in the setting of altered mentation and fever. TECHNICAL DESCRIPTION: This Computer Assisted Digital Video EE G was recorded using 21 scalp electrodes. It was reviewed daily in referential and bipolar montages following reformatting in the 10-20 International electrode placement syste m. Baldemar and seizure detection algorithms were employed. The patient was continuously monitored on video. Staff monitored the patient and maintained a diary of daily routine and suspicious e vents. When appropriate, staff stimulated, interrogated and/or t ested the patient during spells or other activities. The reporting physician had access to the video-EEG data throughout the re cording. The entire record was reviewed, and selected portions inc luding spells reported by patient or staff, spike and seizure det ections, suspicious video or EEG findings, and other abnormalitie s were analyzed in detail. ANTISEIZURE MEDICATIONS: -LEV (Levetiracetam): 1500 mg Q12H -PHT (Phenytoin): 100 mg Q12H -PHB (Phenobarbital): 60 mg BID -LTG (Lamotrigine): 200 mg in am, 400 m g in pm -CLB (Clobazam/Onfi): 5 mg BID EEG INTERPRETATION: Background in the most stimulated state consisted of 20-30 microvolt, 5-6 Hz symmetric but poorly sustained posterior dominant rhythm with good reactivity to eye opening. Faster frequencies including 5-10 microvolts, 12-14 Hz activity was seen in the frontal leads. During drowsiness, there was increased emergence of theta and delta rhythms and as successive stages of sleep developed, sleep spindles were evident. There were frequent sharp waves in the left anterior quadrant with amplitudes of 40-100 microvolts, a nd Maximum negativity in F7/F3/C3/P3. In addition, there are josé manuel quent sharp waves in the right fronto-central region with about the same Amplitude and maximum negativity in Fp2/F4 > C4. There were freqent seizures manifesting as 2-3 seconds run of 80-100 microvolts, 10-12 Hz generalized (and at times predominantly in the left hemisphere) d ischarges, followed by 2-3 seconds of generalized attenuation. Mos tly, there was arousal and a subtle non-localizing or lateralizing movement in the body associated with the seizures. The frequ ency of the seizures was fluctuating between 2 to 20 per hour, o n average, and overall slightly less frequent compared to the previous day IMPRESSION: This Computer Assisted Digi gaby Video EEG for 19 hours and 14 minutes from 12/30/2020 at 16:43 t o 12/31/2020 at 11:57 was abnormal due to: 1) Seizures A. EEG: Electrographical seizure, non-l ocalizable, sometimes lateralizing to the left hemisphere B. Clinical: Either no clinical signs o r arousal and a subtle non-localizing or lateralizing movement in the body. Duration of the seizures were between 5 to 8 seconds and the frequency was fluctuating between 0 to 20 per hour, on average. Majority of the seizures were during sl eep. Overall, slightly less frequent compared to the previous day 2) Abundant sharp waves, multifocal, le ft anterior quadrant and right fronto-central 3) Slow posterior dominant rhythm The above findings are suggestive of a multifocal epilepsy. In addition, there is evidence suggestive of a mild diffuse encephalopathy, non-specific in etiolog y. This was the last day of the recording. ==== Summary report for the entire video-EEG recording from 12/29/2020 at 16:43 to 12/31/2020 at 11:57 Summary of clinical history 65 y.o. male with a history of epilepsy , [employer] shunt placement for hydrocephalus with a history of oligode ndroglioma, coming into the hospital in the setting of altered mentation and fever. Summary of EEG findings 1) Seizures A. EEG: Electrographical seizure, non-l ocalizable, sometimes lateralizing to the left hemisphere B. Clinical: Either no clinical signs, or arousal and a subtle non-localizing or lateralizing movement in the body. Duration of the seizures were between 5 to 8 seconds and the frequency was fluctuating between 0 to 20 per hour, on average. Majority of the seizures were during sl eep. Overall, there was some reduction in seizure frequency on the last day of the recording. 2) Abundant sharp waves, multifocal, le ft anterior quadrant and right fronto-central 3) Slow posterior dominant rhythm Clinical Impression The above findings are suggestive of a multifocal epilepsy. In addition, there is evidence suggestive of a mild diffuse encephalopathy, non-specific in etiolog y. Performing Organization Address City/State/ZIP Code P ahmet Number EXTERNAL NON-INTERFACED LAB * LAB RESULTS (OUTSIDE/HISTORICAL) (12/29/2020 7:30 PM EDT) Narrative Performed At This result has an attachment that is n ot available. * RADIOLOGY REPORT (12/29/2020 7:30 PM EDT) Narrative Performed At This result has an attachment that is n ot available. * EEG Routine Study (12/29/2020 11:36 AM EDT) Narrative Performed At Ramon Frank MD [facility] EEG 12/29/2020 12:07 PM IMPRESSION: This inpatient routine VEEG is abnormal due to: 1. Diffuse irregular theta background s lowing. 2. Abundant independent epileptiform di scharges over the right and left frontocentral and frontotempor al areas. 3. Runs of polyspikes of up to 8 second s, some with spatiotemporal evolution highly suspici ous for seizures. There are no clinical manifestation during th e runs. TECHNIQUE: This is an inpatient routine VEEG recorded using the 10-20 international system for electrod e placement and nomenclature. The study includes at saniya st 19 channels and a single EKG lead. It is reviewed in bipo lar and referential montages using filter settings in lesley mcguire with ACNS guidelines. Standardized terminology fo r inpatient EEG reporting is used as per ACNS guidelines. INDICATION: 65 y.o. male with a history of epilepsy, [employer] shunt placement for hydrocephalus, oligodendr oglioma, coming into the hospital in the setting of altered ment ation and fever. COMPARISON: Direct comparison to the [facility] EEG dated 12/29/20. There has been an interval decrease in the prevalence of epileptiform discharges. PERTINENT MEDICATIONS: levetiracetam 15 00 mg bid; phenytoin 150 mg bid; valproate 500 mg q8; phenobarbi gaby 60 mg bid. BACKGROUND: The background rhythm consi sts of diffuse irregular theta activity measuring 5-7 Hz and 20- 40 V. Background reactivity is present. EPILEPTIFORM DISCHARGES: There are abundant right frontocentral isolated epileptiform discharges cristela l at Fp2/F4/C4 measuring up to 200 V (Figure 1). There are also abundant independent isolated epileptiform discharges over t he left frontotemporal and frontocentral areas maximal at Fp1/F7/F 3 and measuring up to 200 V. In addition see below. PERIODIC OR RHYTHMIC PATTERNS: None. SEIZURES: The right frontocentral disch arges mentioned above at times become sustained in trains of up to 8 seconds of fast polyspikes at 10 Hz and up to 100 V. These runs have evolution in frequency, morphology and spread to the rest of the right hemisphere (Figure 3) and sometimes the left hemisphere as well (Figure 4). Although they last less lucille n 10 seconds, they are highly suspicious for frontal lobe seiz ures with rapid bilateral synchrony. There are no clinical manife stations during these runs. EVENTS: None. Figure 1: Right frontocentral discharge s Figure 2: Left frontocentral epileptifo rm discharges. Figure 3: 8-second run of polyspikes fr om the right parafalcine area and spatiotemporal evolution. 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 Views: Minimum of 4 views. COMPARISON: 1. CR XR SKULL LIMITED [id number] PORTABLE 3:[address] HEAD WITHOUT CONTRAST [id number] 10:50:16 PM FINDINGS: Sinuses: Well aerated. No opacification . Bones/joints: There are bilateral crani otomy defects. A right frontal ventricular shunt catheter is seen on t he lateral view with other abandoned shunt connections on the left. The shun t tubing appears to be intact and has been verified on review of the recent h ead CT. The course through the neck is best followed on the lateral view. Ther e is no discontinuity identified. Soft tissues: Unremarkable. IMPRESSION: There are bilateral craniotomy defects. A right frontal ventricular shunt catheter is seen on the lateral view wi th other abandoned shunt connections on the left. The shunt tubing appears to b e intact and has been verified on review of the recent head CT. The course throu gh the neck is best followed on the lateral view. There is no discontinuity identified. 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 Views: Minimum of 4 views. COMPARISON: 1. CR XR SKULL LIMITED [id number] PORTABLE 12/29/2020 3:[address] HEAD WITHOUT CONTRAST [id number] 12/29/19 10:50:16 PM FINDINGS: Sinuses: Well aerated. No opacification. Bones/joints: There are bilateral craniotomy defects. A right frontal ventricular shunt catheter is seen on the lateral view with other abandoned shunt connections on the left. The shunt tubing appears to be intact and has been verified on review of the recent head CT. The course through the neck is best followed on the lateral view. There is no discontinuity identified. Soft tissues: Unremarkable. IMPRESSION: There are bilateral craniotomy defects. A right frontal ventricular shunt catheter is seen on the lateral view with other abandoned shunt connections on the left. The shunt tubing appears to be intact and has been verified on review of the recent head CT. The course through the neck is best followed on the lateral view. There is no discontinuity identified. THIS DOCUMENT HAS BEEN ELECTRONICALLY SIGNED BY AVI MARTINO MD Performing Organization Address City/State/ZIP Code P ahmet Number [facility]OLOG[facility] [address] [place] [address] * XR Abdomen AP Supine and Lateral View (12/29/2020 6:54 AM EDT) Specimen Narrative Performed At PROCEDURE INFORMATION: [facility] Exam: XR Abdomen Exam date and time: 12/29/2020 6:19 AM Age: 65 years old Clinical indication: Other nonspecific abnormal finding of lung field; Other: Control Board Operator shunt series TECHNIQUE: Imaging protocol: XR of the abdomen. Views: 2 Views. Upright and supine view s. COMPARISON: CR XR CHEST FRONTAL ONLY [id number] PORTABLE 12/28/2020 9:31 PM FINDINGS: Tubes, catheters and devices: A FINE [employer]S INSTRUCTOR shun t is seen. The tip reaches the right upper quadrant posteriorly. Gastrointestinal tract: Air-fluid level s are seen throughout mildly prominent large and small bowel which could refle ct an ileus. Intraperitoneal space: There is no free intraperitoneal air. Bones/joints: Unremarkable for age. Other findings: There is breathing on t he supine AP exam. IMPRESSION: 1. A FINE [employer]S INSTRUCTOR shunt is seen. The tip reaches the right upper quadrant posteriorly. 2. Air-fluid levels are seen throughout mildly prominent large and small bowel which could reflect an ileus. THIS DOCUMENT HAS BEEN ELECTRONICALLY S IGNED BY AVI MARTINO MD Procedure Note Interface, Received Via [employer] - 12/29/2020 7:03 AM EDT PROCEDURE INFORMATION: Exam: XR Abdomen Exam date and time: 12/29/2020 6:19 AM Age: 65 years old Clinical indication: Other nonspecific abnormal finding of lung field; Other: Control Board Operator shunt series TECHNIQUE: Imaging protocol: XR of the abdomen. Views: 2 Views. Upright and supine views. COMPARISON: CR XR CHEST FRONTAL ONLY [id number] PORTABLE 12/28/2020 9:31 PM FINDINGS: Tubes, catheters and devices: A FINE [employer]S INSTRUCTOR shunt is seen. The tip reaches the right upper quadrant posteriorly. Gastrointestinal tract: Air-fluid levels are seen throughout mildly prominent large and small bowel which could reflect an ileus. Intraperitoneal space: There is no free intraperitoneal air. Bones/joints: Unremarkable for age. Other findings: There is breathing on the supine AP exam. IMPRESSION: 1. A FINE ARTS INSTRUCTOR shunt is seen. The tip reaches t he right upper quadrant posteriorly. 2. Air-fluid levels are seen throughout mildly prominent large and small bowel which could reflect an ileus. THIS DOCUMENT HAS BEEN ELECTRONICALLY SIGNED BY AVI MARTINO MD Performing Organization Address City/State/ZIP Code P ahmet Number [facility] [address] [place] [address] * XR Chest Frontal and Lateral (12/29/2020 6:54 AM EDT) Specimen Narrative Performed At [facility] PROCEDURE INFORMATION: Exam: XR Chest Exam date and time: 12/29/2020 6:19 AM Age: 65 years old Clinical indication: Other nonspecific abnormal finding of lung field; Other: Control Board Operator shunt series TECHNIQUE: Imaging protocol: XR of the chest. Views: 2 views. COMPARISON: CR XR CHEST FRONTAL ONLY [id number] PORTABLE 12/28/2020 9:31 PM FINDINGS: Tubes, catheters and devices: A FINE [employer]S INSTRUCTOR shun t is seen with tip coiling in the posterior right upper quadrant. Lungs: Subsegmental atelectasis is note d at the bases. Pleural spaces: Unremarkable. No pleura l effusion. No pneumothorax. Heart/Mediastinum: Unremarkable. No car diomegaly. Bones/joints: Unremarkable. Intraperitoneal space: There is no free intraperitoneal air. IMPRESSION: A FINE [employer]S INSTRUCTOR shunt is seen with tip coiling in the posterior right upper quadrant. THIS DOCUMENT HAS BEEN ELECTRONICALLY S IGNED BY AVI MARTINO MD Procedure Note Interface, Received Via [employer] - 12/29/2020 7:02 AM EDT PROCEDURE INFORMATION: Exam: XR Chest Exam date and time: 12/29/2020 6:19 AM Age: 65 years old Clinical indication: Other nonspecific abnormal finding of lung field; Other: Control Board Operator shunt series TECHNIQUE: Imaging protocol: XR of the chest. Views: 2 views. COMPARISON: CR XR CHEST FRONTAL ONLY [id number] PORTABLE 12/28/2020 9:31 PM FINDINGS: Tubes, catheters and devices: A FINE [employer]S INSTRUCTOR shunt is seen with tip coiling in the posterior right upper quadrant. Lungs: Subsegmental atelectasis is noted at the bases. Pleural spaces: Unremarkable. No pleural effusion. No pneumothorax. Heart/Mediastinum: Unremarkable. No cardiomegaly. Bones/joints: Unremarkable. Intraperitoneal space: There is no free intraperitoneal air. IMPRESSION: A FINE ARTS INSTRUCTOR shunt is seen with tip coiling in the posterior right upper quadrant. THIS DOCUMENT HAS BEEN ELECTRONICALLY SIGNED BY AVI MARTINO MD Performing Organization Address City/State/ZIP Code P ahmet Number [facility] [address] [place] [address] * XR Skull Limited (12/29/2020 3:36 AM EDT) Specimen Narrative Performed At [facility] PROCEDURE INFORMATION: Exam: XR Skull Exam date and time: 12/29/2020 3:31 AM Age: 65 years old Clinical indication: Other nonspecific abnormal finding of lung field; Other: Focus on shunt valve to confirm setting s TECHNIQUE: Imaging protocol: XR of the skull. Views: Less than 4 views. COMPARISON: CT HEAD WITHOUT CONTRAST [id number] 12/28/2020 10:50 PM FINDINGS: Tubes, catheters and devices: The press ure of the FINE [employer]S INSTRUCTOR shunt is set at P/L 2.0 best interpreted on image 1. Sinuses: Well aerated. No opacification . Bones/joints: No fracture. Soft tissues: Unremarkable. IMPRESSION: The pressure of the FINE ARTS INSTRUCTOR shunt is set at P/L 2.0 best interpreted on image 1. THIS DOCUMENT HAS BEEN ELECTRONICALLY S IGNED BY AVI MARTINO MD Procedure Note Interface, Received Via [employer] [facility] - 12/29/2020 6:34 AM EDT PROCEDURE INFORMATION: Exam: XR Skull Exam date and time: 12/29/2020 3:31 AM Age: 65 years old Clinical indication: Other nonspecific abnormal finding of lung field; Other: Focus on shunt valve to confirm settings TECHNIQUE: Imaging protocol: XR of the skull. Views: Less than 4 views. COMPARISON: CT HEAD WITHOUT CONTRAST [id number] 12/28/2020 10:50 PM FINDINGS: Tubes, catheters and devices: The pressure of the FINE ARTS INSTRUCTOR shunt is set at P/L 2.0 best interpreted on image 1. Sinuses: Well aerated. No opacification. Bones/joints: No fracture. Soft tissues: Unremarkable. IMPRESSION: The pressure of the FINE ARTS INSTRUCTOR shunt is set at P/L 2.0 best interpreted on image 1. THIS DOCUMENT HAS BEEN ELECTRONICALLY SIGNED BY AVI MARTINO MD Performing Organization Address City/State/ZIP Code P ahmet Number [facility] [address] [place] [address] * CT Head without Contrast (12/28/2020 11:18 PM EDT) Specimen Impressions Performed At IMPRESSION: [facility] 1. No acute intracranial hemorrhage or ev idence of large acute territorial infarction. 2. Bifrontal encephalomalacia, left sligh tly greater than right. Severe cerebellar atrophy. 3. Left parieto-occipital encephalomalaci a. 4. Status post FINE ARTS INSTRUCTOR shunt placement with th e catheter tip in the right lateral ventricle. Narrative Performed At CLINICAL INDICATION: Altered mental status. [facility] TECHNIQUE: Contiguous axial CT images o f the head were acquired from the base of the skull to the vertex without intrave nous contrast administration. Images were viewed in brain, subdural and bone wind ows. Automated dose lowering techniques and/or adjustment according to patient size were utilized for this exam. COMPARISON: None available. FINDINGS: Patient is status post right frontal ap proach FINE [employer]S INSTRUCTOR shunt placement with the catheter tip in the right lateral ventr icle. There is no acute intracranial hemorrhage or large territorial infarct . Bifrontal encephalomalacia is noted, left slightly greater than right. There is left parieto-occipital encephalomalacia with partial ex vacuo dilatation of the occipital horn of the left lateral ventricle. There is diffuse cerebral volume loss w ith commensurate enlargement of ventricles. Scattered areas of hypoatte nuation in the periventricular and subcortical white matter is compatible with small vessel ischemic disease. The basal cisterns are within normal li mits. There are no abnormal extra-axial fluid collections. There is no evidence of mass effect or midline shift. There is mucosal thickening of bilatera l maxillary sinuses and scattered ethmoid air cells. The remaining imaged paranas al sinuses and mastoid air cells are unremarkable. No depressed calvarial fr actures; the patient is status post right frontoparietal and left parieto-occipit al craniotomy. The scalp is unremarkable. Procedure Note Interface, Received Via [employer] [facility] - 12/29/2020 10:24 AM EDT CLINICAL INDICATION: Altered mental status. TECHNIQUE: Contiguous axial CT images of the head were acquired from the base of the skull to the vertex without intravenous contrast administration. Images were viewed in brain, subdural and bone windows. Automated dose lowering techniques and/or adjustment according to patient size were utilized for this exam. COMPARISON: None available. FINDINGS: Patient is status post right frontal approach FINE [employer]S INSTRUCTOR shunt placement with the catheter tip in the right lateral ventricle. There is no acute intracranial hemorrhage or large territorial infarct. Bifrontal encephalomalacia is noted, left slightly greater than right. There is left parieto-occipital encephalomalacia with partial ex vacuo dilatation of the occipital horn of the left lateral ventricle. There is diffuse cerebral volume loss with commensurate enlargement of ventricles. Scattered areas of hypoattenuation in the periventricular and subcortical white matter is compatible with small vessel ischemic disease. The basal cisterns are within normal limits. There are no abnormal extra-axial fluid collections. There is no evidence of mass effect or midline shift. There is mucosal thickening of bilateral maxillary sinuses and scattered ethmoid air cells. The remaining imaged paranasal sinuses and mastoid air cells are unremarkable. No depressed calvarial fractures; the patient is status post right frontoparietal and left parieto-occipital craniotomy. The scalp is unremarkable. IMPRESSION: 1. No acute intracranial hemorrhage or evidence of large acute territorial infarction. 2. Bifrontal encephalomalacia, left sli ghtly greater than right. Severe cerebellar atrophy. 3. Left parieto-occipital encephalomala jayne. 4. Status post FINE [employer]S INSTRUCTOR shunt placement with the catheter tip in the right lateral ventricle. Performing Organization Address City/State/ZIP Code P ahmet Number [facility] [address] [place] [address] * COVID-19 PCR (12/28/2020 11:11 PM EDT) Specimen Nasopharyngeal Swab [facility] Description CLINICAL PATHOLOGY SARS CoV-2 2018 nCoV Real-Time RT-PCR: 2019 nCoV Real-Nish e [facility] NOT DETECTED RT-PCR: NOT DETECTED Med [facility] Clin Pathology Assay performed Test performed using [employer] [facility] Respiratory Panel. [facility] Clin Pathology First COVID-[address] [facility] Test? CLINICAL PATHOLOGY Employed in UNKNOWN [facility] CLINICAL setting? PATHOLOGY Symptomatic for UNKNOWN [facility] COVID-19 as CLINICAL defined by CDC? PATHOLOGY Date of symptom UNKNOWN [facility] onset? CLINICAL ([id number]) PATHOLOGY Hospitalized UNKNOWN [facility] for COVID-19? CLINICAL PATHOLOGY Admitted to ICU UNKNOWN [facility] for COVID-19? CLINICAL PATHOLOGY Resident in a UNKNOWN [facility] CLINICAL (group) care PATHOLOGY setting? ? UNKNOWN [facility] CLINICAL PATHOLOGY Specimen Nasopharyngeal Swab Performing Organization Address City/[facility]/ZIP Code P ahmet Number [facility] CLINICAL [address], [place] 132[address] PATHOLOGY [facility] [address], [place] [address] Clin Pathology * Respiratory Pathogen Panel (12/28/2020 11:11 PM EDT) Special Request None [facility] CLINICAL PATHOLOGY Respiratory PCR PCR Results [facility] CLINICAL PATHOLOGY Culture/Results See Labs Tab for 2019 nCoV [facility] Adenovirus Not Detected [facility] Clin Pathology Coronavirus Not Detected [facility] 229E [facility] Clin Pathology Coronavirus Not Detected [facility] HKU1 [facility] Coronavirus Not Detected [facility] NL63 [facility] Coronavirus Not Detected [facility] OC43 [facility] Human Not Detected [facility] Metapneumovirus [facility]ology Rhinovirus/ Not Detected [facility] Enterovirus [facility] Influenza A Not Detected [facility] Clin Pathology Influenza B Not Detected [facility] Clin Pathology Parainfluenza Not Detected [facility] virus 1 [facility] Parainfluenza Not Detected [facility] virus 2 [facility] Parainfluenza Not Detected [facility] virus 3 [facility] Parainfluenza Not Detected [facility] virus 4 [facility] RSV Not Detected [facility] Clin Pathology Bordetella Not Detected [facility] pertussis [facility] Clin Pathology Chlamydia Not Detected [facility] pneumoniae [facility] Pathology Mycoplasma Not Detected [facility] pneumoniae [facility] Clin Pathology Bordetella Not Detected [facility] parapertussis [facility] Clin Pathology Specimen Nasopharyngeal Swab Performing Organization Address City/[facility]/ZIP Code P ahmet Number [facility] CLINICAL [address], [place] 132[address] PATHOLOGY [facility] [address], [place] [address] Clin Pathology * Lamotrigine level (12/28/2020 9:59 PM EDT) Lamotrigine 5.3 3.0 - 14.0 ug/mL [facility] Clin Pathology Specimen Serum Performing Organization Address City/[facility] Code P ahmet Number [address] [address] Clin Pathology * Phenytoin level, total (12/28/2020 9:59 PM EDT) Dilantin Screen 16.4 10 - 20 ug/ml [facility] Clin Pathology Specimen Plasma Performing Organization Address [facility]/ZIP [facility] P ahmet Number [address] [address] Clin Pathology * Levetiracetam level (12/28/2020 9:59 PM EDT) Levetiracetam 19 12 - 46 ug/mL [facility] Clin Pathology Specimen Serum Performing Organization Address [facility] P ahmet Number [address] [address] Clin Pathology * Phenobarbital level (12/28/2020 9:59 PM EDT) Phenobarbital 30.2 15 - 40 ug/ml [facility] Clin Pathology Specimen Plasma Performing Organization Address City/[facility] Code P ahmet Number [address] [address] Clin Pathology * Inflammatory C-Reactive Protein (CRP) (12/28/2020 9:59 PM EDT) C Reactive 104.6 (H) <8.0 mg/L [facility] Protein [facility] Clin Pathology Specimen Plasma Performing Organization Address City/[facility]/ZIP Code P ahmet Number [address] 1321 PATHOLOGY [facility] [address], [place] [address] Clin Pathology * Sedimentation rate, automated (12/28/2020 9:59 PM EDT) Sed Rate - ESR 17 <20 mm/hr [facility] Clin Pathology Specimen EDTA Whole Blood Performing Organization Address City/State/ZIP Code P ahmet Number [facility] CLINICAL [address] [place], [place] [address] PATHOLOGY [facility] [address], [place] [address] Clin Pathology * Comprehensive Metabolic Panel (12/28/2020 9:59 PM EDT) Albumin 4.4 3.5 - 5.2 g/dL [facility] Clin Pathology Bilirubin, 0.2 <1.2 mg/dL [facility] Total [facility] Clin Pathology Calcium 9.1 8.8 - 10.2 mg/dL [facility] Clin Pathology Chloride 103 98 - 107 mmol/L [facility] Clin Pathology Creatinine 0.92 0.70 - 1.20 mg/dL [facility] Clin Pathology Glucose 122 70 - 140 mg/dL [facility] Clin Pathology Alkaline 123 40 - 129 U/L [facility] Phosphatase [facility] Clin Pathology Potassium 4.4Comment: Hemolyzed 3.4 - 5.1 mmol/L [facility] Clin Pathology Total Protein 6.9 6.4 - 8.3 g/dL [facility] Clin Pathology Sodium 139 136 - 145 mmol/L [facility] Clin Pathology AST/SGO 12 <40 U/L [facility] Clin Pathology Blood Urea 22 8 - 23 mg/dL [facility] Clin Pathology Osmolality, Brain 293 275.0 - 300.0 [facility] mosm/kg [facility] Clin Pathology BUN/Cre Ratio 24 [facility] Clin Pathology Bicarbonate 25 22 - 29 mmol/L [facility] Clin Pathology ALT/SGP 12 <41 U/L [facility] Clin Pathology Anion Gap 11 8 - 15 mmol/L [facility] Clin Pathology GFR Non 87 >60 mL/min/1.73m2 [facility] [employer] 2008 [facility] Clin CDK-EPI Pathology GFR >90 >60 mL/min/1.73m2 [facility] 2008 [facility] Univ Clin CKD-EPI Pathology Specimen Plasma Performing Organization Address City/State/ZIP Code P ahmet Number [facility] CLINICAL [address] [place], [place] 1321 PATHOLOGY [facility] [address] [place], [place] [address] Clin Pathology * CBC and Differential (12/28/2020 9:59 PM EDT) White Blood 7.1 4.00 - 10.00 10*3/uL [facility] ate Cell [facility] Clin Pathology Red Blood Cell 4.13 (L) 4.60 - 6.10 10*6/uL [facility] Clin Pathology Hemoglobin 12.6 (L) 13.5 - 18.0 g/dL [facility] Clin Pathology Hematocrit 37.3 (L) 41.0 - 53.0 % [facility] Clin Pathology Mean Cell 90.5 80.0 - 96.0 fL [facility] Volume [facility] Clin Pathology Mean Cell 30.6 27.0 - 33.0 pg [facility] Hemoglobin [facility] Clin Pathology Mean Cell Hgb 33.8 32 - 36 g/dL [facility] Conc [facility] Clin Pathology Red Cell Dist 13.8 11.5 - 14.5 % [facility] Width [facility] Clin Pathology Platelet Count 148 (L) 150 - 400 10*3/uL [facility] Clin Pathology Differential Automated Diff [facility] Type [facility] Clin Pathology Neutrophil 84 % [facility] Clin Pathology Lymphocyte 7 % [facility] Clin Pathology Monocyte 9 % [facility] Clin Pathology Eosinophil 0 % [facility] Clin Pathology Basophil 0 % [facility] Clin Pathology Abs Neutrophil 5.99 1.80 - 7.00 10*3/uL [facility]ology Abs Lymphocyte 0.47 (L) 1.20 - 4.00 10*3/uL [facility] [employer] [facility] Clin Pathology Abs Monocyte 0.65 0.00 - 0.80 10*3/uL [facility] [employer] [facility] Clin Pathology Abs Eosinophil 0.03 0.00 - 0.50 10*3/uL [facility] [employer] [facility] Clin Pathology Abs Basophil 0.02 0.00 - 0.20 10*3/uL [facility] Clin Pathology Nucleated Red 0 0 - 0 /100{WBCs} [facility] Blood Cells [facility] Clin Pathology Specimen EDTA Whole Blood Performing Organization Address City/State/ZIP Code P ahmet Number [facility] CLINICAL [address] [place], [place] 1321 PATHOLOGY [facility] [address] [place], [place] [address] Clin Pathology * Blood culture ; Peripheral (12/28/2020 9:59 PM EDT) Special Request L AC [facility] Clin Pathology Culture/Results NO GROWTH [facility] Clin Pathology Specimen Peripheral Performing Organization Address City/[facility]/ZIP Code P ahmet Number [facility] CLINICAL [address] [place], [place] [address] [address] Clin Pathology * XR Chest Frontal Only (12/28/2020 9:41 PM EDT) Specimen Narrative Performed At [facility] RAD[facility] PROCEDURE INFORMATION: Exam: XR Chest Exam date and time: 12/28/2020 9:31 PM Age: 65 years old Clinical indication: Other: Hypoxia TECHNIQUE: Imaging protocol: XR of the chest. Views: 1 view. COMPARISON: No relevant prior studies available. FINDINGS: Tubes, catheters and devices: Catheter overlies the right hemithorax. Lungs: Atelectasis and/or early infiltr ative changes noted within the right lung base. Pleural spaces: There are no pleural ef fusions present. Heart/Mediastinum: Unremarkable. No car diomegaly. Diaphragm: There is nonspecific elevati on of the right hemidiaphragm. Bones/joints: The thoracic spine demons trates mild degenerative changes at multiple levels. IMPRESSION: Atelectasis and/or early infiltrative c hanges noted within the right lung base. There is no evidence of pneumothorax. THIS DOCUMENT HAS BEEN ELECTRONICALLY S IGNED BY RAMANDEEP ALVARES MD Procedure Note Interface, Received Via [employer] - 12/28/2020 10:16 PM EDT PROCEDURE INFORMATION: Exam: XR Chest Exam date and time: 12/28/2020 9:31 PM Age: 65 years old Clinical indication: Other: Hypoxia TECHNIQUE: Imaging protocol: XR of the chest. Views: 1 view. COMPARISON: No relevant prior studies available. FINDINGS: Tubes, catheters and devices: Catheter overlies the right hemithorax. Lungs: Atelectasis and/or early infiltrative changes noted within the right lung base. Pleural spaces: There are no pleural effusions present. Heart/Mediastinum: Unremarkable. No cardiomegaly. Diaphragm: There is nonspecific elevation of the right hemidiaphragm. Bones/joints: The thoracic spine demonstrates mild degenerative changes at multiple levels. IMPRESSION: Atelectasis and/or early infiltrative changes noted within the right lung base. There is no evidence of pneumothorax. THIS DOCUMENT HAS BEEN ELECTRONICALLY SIGNED BY RAMANDEEP ALVARES MD Performing Organization Address City/State/ZIP Code P ahmet Number [facility] [address] [place] [address] * EKG 12-LEAD - CMAXX REPORT (12/28/2020 9:20 PM EDT) Narrative Performed At This result has an attachment that is n ot available. * EKG 12-LEAD - CMAXX REPORT (12/28/2020 9:20 PM EDT) Narrative Performed At This result has an attachment that is n ot available. * EKG 12 Lead (12/28/2020 9:20 PM EDT) Specimen Narrative Performed At Ventricular Rate: [facility] EKG 88 BPM Atrial Rate: 88 BPM P-R Interval: 154 ms QRS Duration: 84 ms Q-T Interval: 382 ms QTC Calculation(Bazett): 462 ms P Capac: 23 degrees R Capac: 12 degrees T Capac: 59 degrees : SINUS RHYTHM : RSR' OR QR PATTERN IN V1 SUGGESTS RIG HT VENTRICULAR CONDUCTION : DELAY : NONSPECIFIC T WAVE ABNORMALITY : WHEN COMPARED WITH ECG OF 07-SEP-1993 18:21, : QRS VOLTAGE HAS DECREASED : : Confirmed by Abdelrahman Olivares ([id number]) on 12/29/2020 10:46:23 AM Procedure Note Interface, Received Via [employer] - 12/29/2020 10:46 AM EDT Ventricular Rate: 88 BPM Atrial Rate: 88 BPM P-R Interval: 154 ms QRS Duration: 84 ms Q-T Interval: 382 ms QTC Calculation(Bazett): 462 ms P Capac: 23 degrees R Capac: 12 degrees T Capac: 59 degrees : SINUS RHYTHM : RSR' OR QR PATTERN IN V1 SUGGESTS RIGHT VENTRICULAR CONDUCTION : DELAY : NONSPECIFIC T WAVE ABNORMALITY : WHEN COMPARED WITH ECG OF 07-SEP-1993 18:21, : QRS VOLTAGE HAS DECREASED : : Confirmed by Abdelrahman Olivares ([id number]) on 12/29/2020 10:46:23 AM Performing Organization Address City/State/ZIP Code P ahmet Number [facility] * EKG 12-LEAD - CMAXX REPORT (12/28/2020 9:20 PM EDT) Narrative Performed At This result has an attachment that is n ot available. 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 Right lower lobe pulmonary infiltrate Nonintractable epilepsy without status epilepticus, unspecified epilepsy type Fever, unspecified fever cause Hypertension, essential Unspecified essential hypertension Unspecified intellectual disabilities Obesity, unspecified classification, un specified obesity type, unspecified whether serious comorbidity present Normocytic anemia Anemia, unspecified COVID-19 ruled out Seizures Other convulsions documented in this encounter Administered Medications Action Date Dose Rate Site Medication Order MAR Action 01/03/2021 10:13 AM EDT 5 mg cloBAZam (ONFI) tablet 5 mg Given 5 mg, Oral, 2 Times Daily, First dose o n 12/30/20 at 2100, For 30 days 5 mg Given 01/02/2021 9:06 PM EDT 5 mg Given 01/02/2021 9:42 AM EDT 01/03/2021 10:14 AM EDT 40 mg enoxaparin sodium (LOVENOX) injection 40 Given mg 40 mg, Subcutaneous, Daily Standard, First dose on Fri12/29/20 at 0900, For 3 0 days, Non Patients: body weigh t < 150 kg, CrCl > 30 mL/min. Guidelines for Lovenox: MUST wait 24 hours before starting Enoxaparin if patient has epidural catheter. D/C Enoxaparin 10-12 hours prior to removing epidural catheter. May restart Enoxaparin 24 hours after epidural catheter has been removed. 40 mg Given 01/02/2021 9:40 AM EDT 40 mg Abdominal Tissue Given 01/01/2021 9:07 AM EDT hydrOXYzine (ATARAX) tablet 25 mg 25 mg, Oral, Every 6 hours PRN, Itching, Anxiety, Starting on Sun 1 at 1214, For 6 doses 01/03/2021 10:14 AM EDT 20 mLs lactulose (CHRONULAC) solution 20 mL Given 20 mL, Oral, 2 Times Daily, First dose (after last modification) on Fri01/01/21 at 1730, For 30 days 20 mLs Given 01/02/2021 9:06 PM EDT 20 mLs Given 01/02/2021 9:33 AM EDT 01/03/2021 10:14 AM EDT 200 mg lamoTRIgine (LaMICtal) tablet 200 mg Given 200 mg, Oral, Daily Standard, First dose on Fri12/31/20 at 0900, For 30 days 200 mg Given 01/02/2021 9:34 AM EDT 200 mg Given 01/01/2021 9:06 AM EDT 01/02/2021 9:06 PM EDT 400 mg lamoTRIgine (LaMICtal) tablet 400 mg Given 400 mg, Oral, Nightly, First dose on 12/30/20 at 2200, For 30 days 400 mg Given 01/01/2021 9:53 PM EDT 400 mg Given 12/31/2020 8:58 PM EDT 01/03/2021 10:13 AM EDT 1,500 mg levETIRAcetam (KEPPRA) tablet 1,500 mg Given 1,500 mg, Oral, 2 Times Daily, First dose on Fri12/31/20 at 2100, For 30 days 1,500 mg Given 01/02/2021 9:06 PM EDT 1,500 mg Given 01/02/2021 9:37 AM EDT 01/03/2021 10:13 AM EDT 750 mg levoFLOXacin (LEVAQUIN) tablet 750 mg Given 750 mg, Oral, Daily Standard, First dose (after last modification) on Fri12/31/20 at 1215, For 5 days, Administer 2 hours before or 4 hours after oral magnesium, calcium, iron, and sucralfate., Discouraged Uses: Treatment of UTI 750 mg Given 01/02/2021 9:36 AM EDT 750 mg Given 01/01/2021 9:06 AM EDT 01/03/2021 10:13 AM EDT 20 mg paroxetine (PAXIL) tablet 20 mg Given 20 mg, Oral, Daily Standard, First dos e on Fri12/31/20 at 0900, For 30 days, Rishi e along with 40mg Paroxetine 20 mg Given 01/02/2021 9:40 AM EDT 20 mg Given 01/01/2021 9:06 AM EDT 01/03/2021 10:14 AM EDT 40 mg paroxetine (PAXIL) tablet 40 mg Given 40 mg, Oral, Daily Standard, First dos e on 12/31/20 at 0900, For 30 days 40 mg Given 01/02/2021 9:38 AM EDT 40 mg Given 01/01/2021 9:07 AM EDT 01/03/2021 10:14 AM EDT 64.8 mg PHENobarbital (LUMINAL) tablet 64.8 mg Given 64.8 mg, Oral, 2 Times Daily, First dos e on 12/31/20 at 2100, For 30 days 64.8 mg Given 01/02/2021 9:06 PM EDT 64.8 mg Given 01/02/2021 9:34 AM EDT 01/03/2021 10:13 AM EDT 100 mg phenytoin (DILANTIN) ER capsule 100 mg Given 100 mg, Oral, 2 Times Daily, First dose on 12/31/20 at 1215, For 30 days, Hol d enteral nutrition at least 1 hour befor e and 2 hours after dose. Monitor drug levels. 100 mg Given 01/02/2021 9:06 PM EDT 100 mg Given 01/02/2021 9:36 AM EDT 01/03/2021 10:13 AM EDT 300 mg QUEtiapine (SEROquel) tablet 300 mg Given 300 mg, Oral, 2 Times Daily, First dose on 12/30/20 at 2100, For 30 days 300 mg Given 01/02/2021 9:06 PM EDT 300 mg Given 01/02/2021 9:37 AM EDT 01/02/2021 9:06 PM EDT 200 mg trazodone (DESYREL) tablet 200 mg Given 200 mg, Oral, Nightly, First dose on Sa t 12/30/20 at 2200, For 30 days 200 mg Given 01/01/2021 9:52 PM EDT 200 mg Given 12/31/2020 8:57 PM EDT Action Date Dose Rate Site Medication Order MAR Action 12/29/2020 12:29 AM EDT 500 mg 250 mL/hr azithromycin in NaCl 0.9 % 250 mL New Bag infusion 500 mg 500 mg, Intravenous, at 250 mL/hr, Once , On Doreen 12/28/20 at 2330, For 1 dose 12/30/2020 1:13 AM EDT 500 mg 250 mL/hr azithromycin in NaCl 0.9 % 250 mL New Bag infusion 500 mg 500 mg, Intravenous, at 250 mL/hr, Ever y 24 hours, First dose on [facility] 12/30/20 at 0000, For 4 days 500 mg 250 mL/hr New Bag 12/30/2020 12:15 AM EDT 12/29/2020 2:03 AM EDT 1 g 100 mL/hr cefTRIAXone (ROCEPHIN) infusion 1 g New Bag (premix) 1 g, Intravenous, at 100 mL/hr, Once, O n Doreen 12/28/20 at 2330, For 1 dose, Discouraged Uses: Empiric treatment o f post-surgical meningitis (ceftazidime preferred) 12/30/2020 11:37 PM EDT 1 g 100 mL/hr cefTRIAXone (ROCEPHIN) infusion 1 g New Bag (premix) 1 g, Intravenous, at 100 mL/hr, Every 2 4 hours, First dose on [facility] 12/30/20 at 0000, For 4 days, Discouraged Uses: Empiric treatment of post-surgical meningitis (ceftazidime preferred) 1 g 100 mL/hr New Bag 12/30/2020 12:15 AM EDT 12/28/2020 11:09 PM EDT 100 mg PE fosphenytoin (CEREBYX) injection 100 mg New Bag PE 100 mg PE, Intravenous, Once, On Doreen 12/28/20 at 2130, For 1 dose 12/28/2020 10:19 PM EDT 1,500 mg 400 mL/hr levETIRAcetam (KEPPRA) 1,500 mg in New Bag sodium chloride 100 mL (15 mg/mL) infusion (premix) 1,500 mg, Intravenous, at 400 mL/hr, Once, On Doreen 12/28/20 at 2130, For 1 dose 12/31/2020 9:13 AM EDT 1,500 mg 400 mL/hr levETIRAcetam (KEPPRA) 1,500 mg in New Bag sodium chloride 100 mL (15 mg/mL) infusion (premix) 1,500 mg, Intravenous, at 400 mL/hr, Every 12 hours, First dose (after last modification) on Fri12/29/20 at 0900, Fo r 30 days 1,500 mg 400 mL/hr New Bag 12/30/2020 9:14 PM EDT 1,500 mg 400 mL/hr New Bag 12/30/2020 10:06 AM EDT 12/29/2020 4:03 AM EDT 2 mg LORazepam (ATIVAN) injection 2 mg New Bag 2 mg, Intravenous, Once, On Fri12/29/20 at 0400, For 1 dose 12/30/2020 3:30 AM EDT 75 mL/hr NaCl infusion 0.9 % New Bag at 75 mL/hr, Intravenous, Continuous, Starting on Fri12/29/20 at 1545, For 30 days 75 mL/hr New Bag 12/30/2020 1:11 AM EDT 75 mL/hr New Bag 12/29/2020 4:36 PM EDT 12/30/2020 7:27 PM EDT 5 mg OLANZapine (ZYPREXA) injection 5 mg Given 5 mg, Intramuscular, Once, On Sat 1 at 1745, For 1 dose, Reconstitute 10 mg vial with 2.1 mL SWFI; resulting solution is ~5 mg/mL; Use within 1 hour following reconstitution. 12/28/2020 11:53 PM EDT 58 mg PHENobarbital (LUMINAL) injection 58 mg New Bag 58 mg, Intravenous, Once, On Doreen 12/28/20 at 2130, For 1 dose 12/31/2020 8:03 AM EDT 60 mg PHENobarbital (LUMINAL) injection 60 mg New Bag 60 mg, Intravenous, 2 Times Daily, Firs t dose on Fri12/29/20 at 0900, For 30 days 60 mg New Bag 12/30/2020 9:14 PM EDT 60 mg New Bag 12/30/2020 10:38 AM EDT 12/30/2020 9:14 PM EDT 100 mg phenytoin (DILANTIN) injection 100 mg New Bag 100 mg, Intravenous, Every 12 hours, First dose (after last modification) on 12/30/20 at 2100, For 57 doses, Administer infusion using a 0.22 micron filter. 12/30/2020 11:21 AM EDT 150 mg phenytoin (DILANTIN) injection 150 mg New Bag 150 mg, Intravenous, Every 12 hours, First dose on Fri12/29/20 at 0900, For 3 0 days, Administer infusion using a 0.22 micron filter. 150 mg New Bag 12/29/2020 9:09 PM EDT 150 mg New Bag 12/29/2020 10:13 AM EDT 12/29/2020 3:02 AM EDT 500 mg 400 mL/hr valproate sodium (DEPACON) injection 500 New Bag mg 500 mg, Intravenous, Once, On Doreen 1 at 2345, For 1 dose, Administer at a rate of 1 g over 15 minutes. Suggested dilution 50 mL NS 12/30/2020 8:12 AM EDT 500 mg 40 mL/hr valproate sodium (DEPACON) injection 500 New Bag mg 500 mg, Intravenous, Every 8 hours, First dose on Fri12/29/20 at 0800, For 3 0 days, Administer at a rate of 1 g over 60 minutes 500 mg 40 mL/hr New Bag 12/29/2020 11:27 PM EDT 500 mg 40 mL/hr New Bag 12/29/2020 4:36 PM EDT 12/29/2020 4:01 AM EDT 500 mg 40 mL/hr valproate sodium (DEPACON) injection 500 New Bag mg 500 mg, Intravenous, at 40 mL/hr, Once, On Fri12/29/20 at 0400, For 1 dose, Administer at a rate of 1 g over 15 minutes. Suggested dilution 50 mL NS documented in this encounter Active and Recently Administered Medications Times are shown in EDT. 01/02/2021 01/03/2021 Medication Order 01/01/2021 0942 (Given - Provider: KOMAL López)210 (Given - Provider: Manasa Marin RN) 101 (Given - Provider: Manasa mclean RN)2100 (Due) cloBAZam (ONFI) tablet 5 mg 0905 (Given - 5 mg, Oral, 2 Times Daily, First dose on Provider: Cecy Vickers 12/30/20 at 2100, For 30 days Kuldeep Degroot RN)215 (Given - Provider: Trent Pires RN) 0940 (Given - Provider: KOMAL López) 1014 (Given - Provider: Manasa mclean RN) enoxaparin sodium (LOVENOX) injection 40 906 (Given - mg Provider: Manasa 40 mg, Subcutaneous, Daily Standard, Kuldeep Degroot RN) First dose on Fri12/29/20 at 0900, For 3 0 days, Non Patients: body weigh t < 150 kg, CrCl > 30 mL/min. Guidelines for Lovenox: MUST wait 24 hours before starting Enoxaparin if patient has epidural catheter. D/C Enoxaparin 10-12 hours prior to removing epidural catheter. May restart Enoxaparin 24 hours after epidural catheter has been removed. 0933 (Given - Provider: KOMAL López)2105 (Given - Provider: Manasa Marin RN) 101 (Given - Provider: Manasa mclean RN)2100 (Due) lactulose (CHRONULAC) solution 20 mL 184 (Given - 20 mL, Oral, 2 Times Daily, First dose Provider: Dru Castrejon (after last modification) on Fri01/01/21 MELANI Pires)215 2 (Given at 1730, For 30 days - Provider: Trent Pires RN) 0934 (Given - Provider: KOMAL López) 101 (Given - Provider: Manasa mclean RN) lamoTRIgine (LaMICtal) tablet 200 mg 09 (Given - 200 mg, Oral, Daily Standard, First Provider: Jennifer vieira dose on Fri12/31/20 at 0900, For 30 days Kuldeep Degroot RN ) 2105 (Given - Provider: Manasa guerin RN) 220 (Due) lamoTRIgine (LaMICtal) tablet 400 mg 215 (Given - 400 mg, Oral, Nightly, First dose on Fri Provider: Kuldeep Castrejon 12/30/20 at 2200, For 30 days MELANI Pires) 0937 (Given - Provider: KOMAL López)2105 (Given - Provider: Manasa Marin RN) 1013 (Given - Provider: Manasa mclean RN)2100 (Due) levETIRAcetam (KEPPRA) tablet 1,500 mg 0907 (Given - 1,500 mg, Oral, 2 Times Daily, First Provider: Jennifer vieira dose on 12/31/20 at 2100, For 30 days Kuldeep Degroot RN )2151 (Given - Provider: Trent Pires RN) 935 (Given - Provider: KOMAL López) 101 (Given - Provider: Manasa mclean RN) levoFLOXacin (LEVAQUIN) tablet 750 mg 09 (Given - 750 mg, Oral, Daily Standard, First Provider: Jennifer vieira dose (after last modification) on Sun Kuldeep Degroot RN) 12/31/20 at 1215, For 5 days, Administer 2 hours before or 4 hours after oral magnesium, calcium, iron, and sucralfate., Discouraged Uses: Treatment of UTI 0940 (Given - Provider: KOMAL López) 101 (Given - Provider: Manasa mclean RN) paroxetine (PAXIL) tablet 20 mg 09 (Given - 20 mg, Oral, Daily Standard, First dose Provider: Cecy aburto on 12/31/20 at 0900, For 30 days, Take Maryam Eugene) along with 40mg Paroxetine 09 (Given - Provider: KOMAL López) 1013 (Given - Provider: Manasa mclean RN) paroxetine (PAXIL) tablet 40 mg 906 (Given - 40 mg, Oral, Daily Standard, First dose Provider: Cecy aburto on 12/31/20 at 0900, For 30 days Kuldeep Degroot RN) 09 (Given - Provider: KOMAL López)2105 (Given - Provider: Manasa Marin RN) 101 (Given - Provider: Manasa mclean RN)2099 (Due) PHENobarbital (LUMINAL) tablet 64.8 mg 09 (Given - 64.8 mg, Oral, 2 Times Daily, First dose Provider: Cecy aburto on 12/31/20 at 2100, For 30 days Kuldeep Degroot RN)2152 (Given - Provider: Trent Pires RN) 935 (Given - Provider: KOMAL López)2105 (Given - Provider: Manasa Marin RN) 101 (Given - Provider: Manasa mclean RN)2100 (Due) phenytoin (DILANTIN) ER capsule 100 mg 0905 (Given - 100 mg, Oral, 2 Times Daily, First dose Provider: St soriano on 12/31/20 at 1215, For 30 days, Hold Maryam Eugene)2151 enteral nutrition at least 1 hour before (Given - Pr ovider: and 2 hours after dose. Monitor drug Maryam Stephenson) levels. 0937 (Given - Provider: KOMAL López)210 (Given - Provider: Manasa Marin RN) 101 (Given - Provider: Manasa mclean RN)2100 (Due) QUEtiapine (SEROquel) tablet 300 mg 09 (Given - 300 mg, Oral, 2 Times Daily, First dose Provider: St soriano on 12/30/20 at 2100, For 30 days Kuldeep Degroot RN)215 (Given - Provider: Trent Pires RN) 2105 (Given - Provider: Manasa guerin RN) 220 (Due) trazodone (DESYREL) tablet 200 mg 2151 (Given - 200 mg, Oral, Nightly, First dose on Sat Provider: Kuldeep Castrejon 12/30/20 at 2200, For 30 days MELANI Pires) 01/02/2021 01/03/2021 Medication Order 01/01/2021 hydrOXYzine (ATARAX) tablet 25 mg 25 mg, Oral, Every 6 hours PRN, Itching, Anxiety, Starting on Sun 1 at 1214, For 6 doses documented in this encounter Additional Health Concerns Last Indicated Resolved Time Infection Onset Date 12/28/2020 12/29/2020 1:55 AM EDT Respiratory Rule-Out 12/28/2020 12/28/2020 12/29/2020 1:56 AM EDT COVID-19 Rule-Out 12/28/2020 documented as of this encounter
--- OUTSIDE RECORDS SUMMARY | 2021-03-14 09:05 | CCD | Continuity of Care Document ---
Author Author Hemanth ENGEL P.A.-C. Organization Unknown Address [address] [place] [id number] Phone [phone] Care Team Providers Care Marble Chip Terrazzo Worker Name Role Phone Carlitos Lozano AUTM [phone] Problems Description No Information Available Social History Type Date Description Comments Sex Unknown Allergies, Adverse Reactions, Alerts Active Allergies Criticality Reaction | Severity Comments Date Tranxene Unable to assess criticality lethargy 07/11/2011 Haldol Unable to assess criticality agitation 11/19/2013 Latuda Unable to assess criticality increased be haviors 11/19/2013 Felbatol Unable to assess criticality 10/07/2014 Namenda Unable to assess criticality 02/07/2020 Medications Active Medications SIG Qnty Indications Ordering Provide r Date Lactulose 10GM/15ML Solution 20 ml po bid, new dose 1892ml E72.20 Olamide Mireles M.D. 06/08/2019 Levetiracetam 500mg Tablets 3 po bid 180tabs G40.309 Olamide Mireles M.D. 03/02/2019 Lamotrigine 200mg Tablets Take One Tablet By Mouth Every Morning and Take Two Tablets By Mouth AT Bedtime 90tabs Olamide Mireles M.D. 08/01/2018 Dilantin 100mg Capsules 1 po bid, new directions 60caps Olamide Mireles M.D. 2016 Phenobarbital 64.8mg Tablets Take One Tablet By Mouth Twice Daily Max Daily Dose Two Tablets 60tabs Olamide Mireles M.D. 2016 Clobazam 10mg Tablets 5 mg po bid Unknown Immunizations Description No Information Available Vital Signs Date Vital Result Comment 12/19/2020 7:05am BP Systolic 110 mmHg BP Diastolic 70 mmHg Heart Rate 76 /min Respiratory Rate 16 /min 04/27/2020 5:43am BP Systolic 132 mmHg VS as reporte d by PATTI nurse BP Diastolic 72 mmHg VS as reported by JR Whyte nurse Heart Rate 80 /min Respiratory Rate 16 /min Weight 228.38 lb O2 % BldC Oximetry 96 % Results Test Acquired Date Facility Test Result H/L Range Note Laboratory test finding 01/06/2021 [facility] Ammonia 50 uMOL/L High <32 CBC With Differential 11/22/2020 [facility] White Blood Count 4.7 10 Normal 4.0-10.0 [...] 36.0-66.0 Lymph % 37.4 % Normal 24.0-44.0 Mason % 10.8 % High 2.0-8.0 Eos % 7.3 % High 0.0-3.0 Baso % 0.6 % Normal 0.0-1.0 Immature Granulocyte % 0.4 % Normal 0-3.0 Nucleated Red Blood Cell % 0.0 % Normal 0-0 Neutrophils # 2.0 10 Normal 1.5-8.5 Lymph # 1.7 10 Normal 1.5-5.0 Mason # 0.5 10 Normal 0.0-0.8 Eos # 0.3 10 Normal 0.0-0.5 Baso # 0.0 10 Normal 0.0-0.2 Laboratory test finding 11/22/2020 [facility] Ammonia 21 uMOL/L Normal <32 Comprehensive Metabolic Profil 11/22/2020 [facility] Glucose, Fasting 100 mg/dL Normal 70-100 Blood Urea Nitrogen 15 mg/dL Normal 7-18 Creatinine For GFR 0.94 mg/dL Normal 0.70-1.30 Glomerular Filtration Rate > 60.0 Normal >49 1 Sodium Level 143 mEq/L Normal 136-145 Potassium [...] Ratio 1.4 Normal Laboratory test finding 11/22/2020 [facility] Phenytoin (Dilantin) 18.3 UG/ML Normal 10.0-20.0 Phenobarbital Level 32.8 UG/ML Normal 15.0-40.0 Levetiracetam (Keppra) 27.6 ug/mL Normal 10.0-40.0 2 Lamotrigine (Lamictal) 6.5 ug/mL Normal 2.0-20.0 3 Laboratory test finding 09/27/2020 [facility] Ammonia 22 uMOL/L Normal <32 Phenytoin (Dilantin) 19.7 UG/ML Normal 10.0-20.0 Phenobarbital Level 33.4 UG/ML Normal 15.0-40.0 Levetiracetam (Keppra) 21.1 ug/mL Normal 10.0-40.0 4 Lamotrigine (Lamictal) 6.5 ug/mL Normal 2.0-20.0 5 1 Units are mL/min/1.73 m2 Chronic Kidney Disease Staging per NKF: Stage I & II GFR >=60 Normal to Mildly Decreased Stage III GFR 30-59 Moderately Decreased Stage IV GFR 15-29 Severely Decreased Stage V GFR <15 Very Little GFR Left ESRD GFR <15 on ASSOCIATE PROF[employer]OR [employer] LITERATURE 2 This test was developed and its performance characteristics determined by [employer]. It has not been cleared or approved by the Food and Drug Administration. 3 Detection Limit = 1.0 Performed at: [facility] [id number] [address] [employer] Operator: Nomi Barrett MD, Phone: [phone] 4 This test was developed and its performance characteristics determined by [employer]. It has not been cleared or approved by the Food and Drug Administration. 5 Detection Limit = 1.0 Performed at: [address] [id number] [address] [employer] Operator: Nomi Barrett MD, Phone: [phone] Procedures Date Code Description Status 12/19/2020 12328 Office/Outpatient Established Mo d MDM 30-39 Min Completed 09/14/2020 06421 Office/Outpatient Established Lo w MDM 20-29 Min Completed Medical Devices Description No Information Available Encounters Type Date Location Provider Dx Diagnosis Office Visit 12/19/2020 11:15a Main office - [place] Sylvia Garland.A.-C. 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 01/18/2021 E72.20 Disorder of urea cycle metabolis m, unspecified Omayra Engel P.A.-C. 01/18/2021 E23.6 Other disorders of pituitary gla nd Omayra Engel P.A.-C. 01/18/2021 G91.8 Other hydrocephalus Omayra uriarte P.A.-C. 01/18/2021 F02.81 Dementia in other diseases class ified elsewhere with behavio Omayra Engel P.A.-C. 01/18/2021 R44.1 Visual hallucinations Omayra allred, P.A.-C. 01/18/2021 R53.83 Other fatigue Omayra Engel, P.A.-C. 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 12/19/2020 E72.20 Disorder of urea cycle metabolis m, unspecified Omayra Engel, P.A.-C. 12/19/2020 E23.6 Other disorders of pituitary gla nd Omayra Engel, P.A.-C. 12/19/2020 G91.8 Other hydrocephalus Omayra uriarte, P.A.-C. 12/19/2020 F02.81 Dementia in other diseases class ified elsewhere with behavio Omayra Engel P.A.-C. 12/19/2020 R44.1 Visual hallucinations Omayra allred, P.A.-C. 12/19/2020 R53.83 Other fatigue Omayra Engel, P.A.-C. 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 09/14/2020 E72.20 Disorder of urea cycle metabolis m, unspecified Omayra Engel P.A.-C. Plan of Treatment Future Appointment(s):* 03/29/2021 11:00 am - Ariadne [facility] 01/18/2021 - Sylvia Jara.A.-C.* G40.309 Generalized idiopathic epilepsy and epileptic syndromes, not * E72.20 Disorder of urea cycle metabolism, unspecified * E23.6 Other disorders of pituitary gland * G91.8 Other hydrocephalus * F02.81 Dementia in other diseases classified elsewhere with behavio * R44.1 Visual hallucinations * R53.83 Other fatigue Functional Status Description No Information Available Mental Status Description No Information Available Referrals Description No Information Available"
--- OUTSIDE RECORDS SUMMARY | 2021-03-14 09:05 | CCD | Continuity of Care Document ---
Author Author Hemanth BONDS PA Organization Unknown Address [address] [place] [address] [place] [address] Phone [phone] Care Team Providers Care Collision Worker Name Role Phone Ruy Jones AUTM [phone] Ruy Jones CrysalinM [phone] Social History Type Date Description Comments Sex Unknown Immunizations CPT Code Status Date Vaccine Lot # [id number] Given 03/03/2008 Flu Injection Results Test Acquired Date Facility Test Result H/L Range Note CBC With Differential 11/22/[address] [address] [phone] White Blood Count 4.7 10 Normal 4.0-10.0 [...] 36.0-66.0 Lymph % 37.4 % Normal 24.0-44.0 [place] % 10.8 % High 2.0-8.0 Eos % 7.3 % High 0.0-3.0 Baso % 0.6 % Normal 0.0-1.0 Immature Granulocyte % 0.4 % Normal 0-3.0 Nucleated Red Blood Cell % 0.0 % Normal 0-0 Neutrophils # 2.0 10 Normal 1.5-8.5 Lymph # 1.7 10 Normal 1.5-5.0 [place] # 0.5 10 Normal 0.0-0.8 Eos # 0.3 10 Normal 0.0-0.5 Baso # 0.0 10 Normal 0.0-0.2 Laboratory test finding 11/22/[address] [id number] [phone] Ammonia 21 uMOL/L Normal <32 Comprehensive Metabolic Profil 11/22/[address] 9108019 [phone] Glucose, Fasting 100 mg/dL Normal 70-100 Blood [...] Ratio 1.4 Normal Laboratory test finding 11/22/[address] [address] [phone] Phenytoin (Dilantin) 18.3 UG/ML Normal 10.0-20.0 Phenobarbital Level 32.8 UG/ML Normal 15.0-40.0 Levetiracetam (Keppra) 27.6 ug/mL Normal 10.0-40.0 2 Lamotrigine (Lamictal) 6.5 ug/mL Normal 2.0-20.0 3 CBC With Differential 09/27/[address] [id number] [phone] White Blood Count 4.9 10 Normal 4.0-10.0 [...] 36.0-66.0 Lymph % 27.0 % Normal 24.0-44.0 [place] % 9.3 % High 2.0-8.0 Eos % 6.5 % High 0.0-3.0 Baso % 0.8 % Normal 0.0-1.0 Immature Granulocyte % 0.0 % Normal 0-3.0 Nucleated Red Blood Cell % 0.0 % Normal 0-0 Neutrophils # 2.8 10 Normal 1.5-8.5 Lymph # 1.3 10 Low 1.5-5.0 [place] # 0.5 10 Normal 0.0-0.8 Eos # 0.3 10 Normal 0.0-0.5 Baso # 0.0 10 Normal 0.0-0.2 Comprehensive Metabolic Profil 09/27/[address] 4908204 [phone] Glucose, Fasting 106 mg/dL High 70-100 Blood Urea Nitrogen 14 mg/dL Normal 7-18 Creatinine For GFR 0.81 mg/dL Normal 0.70-1.30 Glomerular Filtration Rate > 60.0 Normal >49 4 Sodium Level 139 mEq/L Normal 136-145 Potassium [...] Albumin/Globulin Ratio 1.3 Normal Lipid Panel 09/27/[address] [address] [phone] Triglycerides Level 109 mg/dL Normal <150 Cholesterol Level 156 mg/dL Normal <200 HDL Cholesterol 56 mg/dL Normal >40 LDL Cholesterol 78 mg/dL Normal <100 Non-HDL-C 100 mg/dL Normal Cholesterol Risk Ratio 2.785 Normal <5 FT4&TSH Panel 09/27/[address] [address] [phone] Thyroid Stimulating Hormone 2.130 uIU/ML Normal 0. 358-3.740 Free T4 0.48 ng/dL Low 0.76-1.46 Hemoglobin A1c 09/27/[address] [address] [phone] Hemoglobin A1c 5.7 % Normal 5 Estimated Average Glucose 117 mg/dL High 60-110 Laboratory test finding 09/27/[address] [address] [phone] Ammonia 22 uMOL/L Normal <32 Phenytoin (Dilantin) 19.7 UG/ML Normal 10.0-20.0 Phenobarbital Level 33.4 UG/ML Normal 15.0-40.0 Levetiracetam (Keppra) 21.1 ug/mL Normal 10.0-40.0 6 Lamotrigine (Lamictal) 6.5 ug/mL Normal 2.0-20.0 7 Urine Culture 09/12/[address] [address] [phone] Urine Culture FULL REPORT IN L <SEE NOTE> Normal 8 Ua Routine 09/12/[address] [address] [phone] Appearance, Urine CLOUDY High Clear Color, Urine YELLOW Normal Yellow PH,Urine 7.0 units Normal 5.0-9.0 Specific [place] Urine Auto 1.019 Normal 1.002-1.035 Protein, Urine [...] Little GFR Left ESRD GFR <15 on ACCESS CONSULTANT 2 This test was developed and its performance characteristics determined by [employer]. It has not been cleared or approved by the Food and Drug Administration. 3 Detection Limit = 1.0 Performed at: [facility] [address] [id number] Pega Developer: Nomi Barrett MD, Phone: [phone] Units are mL/min/1.73 m2 Chronic Kidney Disease Staging per NKF: Stage I & II GFR >=60 Normal to Mildly Decreased Stage III GFR 30-59 Moderately Decreased Stage IV GFR 15-29 Severely Decreased Stage V GFR <15 Very Little GFR Left ESRD GFR <15 on ACCESS CONSULTANT 5 REFERENCE RANGES: <=5.6% NORMAL 5.7-6.4% SUGGESTS IMPAIRED GLUCOSE META BOLISM/PREDIABETIC >= 6.5% ABNORMAL 6 This test was developed and its performance characteristics determined by [employer]. It has not been cleared or approved by the Food and Drug Administration. 7 Detection Limit = 1.0 Performed at: [facility] [address] [id number] 05 Pega Developer: Nomi Barrett MD, Phone: [phone] FULL REPORT IN LAB NOTES (eC W and [employer]). NO GROWTH CLINICAL SIGNIFICANCE 1 ORGANISM Procedures Date Code Description Status 08/09/2020 80752 Office/Outpatient Established Lo w MDM 20-29 Min Completed 06/21/2020 20373 Office/Outpatient Established SF MDM 10-19 Min Completed Encounters Type Date Location Provider Dx Diagnosis Office Visit 12/06/2020 10:00a [facility] JEANA James Z00.00 Encntr for general adult med ical exam w/o abnormal findings I10 Essential (primary) hyperten brian E78.5 Hyperlipidemia, unspecified Office Visit 08/09/2020 10:00a [facility] JEANA James I10 Essential (primary) hyperten brian E78.5 Hyperlipidemia, unspecified Office Visit 06/21/2020 12:30p [facility] JEANA James L02.811 Cutaneous abscess of head [a ny part, except face] F02.81 Dementia in oth diseases cla ssd elswhr w behavioral disturb Assessments Date Code Description Provider 12/06/2020 Z00.00 Encounter for genera l adult medical examination without abnormal findings JEANA Tavarez 12/06/2020 I10 Essential (primary) hypertension JEANA Tavarez 12/06/2020 E78.5 Hyperlipidemia, unspecified JEANA Rothman 08/09/2020 I10 Essential (primary) hypertension JEANA Tavarez 08/09/2020 E78.5 Hyperlipidemia, unspecified JEANA Rothman 06/21/2020 L02.811 Cutaneous abscess of head [any p art, except face] JEANA Tavarez 06/21/2020 F02.81 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
--- OUTSIDE RECORDS SUMMARY | 2021-03-14 09:05 | CCD | Continuity of Care Document ---
Author Author Hemanth BONDS PA Organization Unknown Address [address] [place] [address] [address] [place] [address] Phone [phone] Care Team Providers Care Nursery Nurse Name Role Phone Ruy Jones [employer]elli[employer]M [phone] Ruy Jones IntelliGeneScanM [phone] Social History Type Date Description Comments Sex Unknown Immunizations CPT Code Status Date Vaccine Lot # [id number] Given 03/03/2008 Flu Injection Results Test Acquired Date Facility Test Result H/L Range Note Ua Routine 01/17/[address] [id number] [phone] Appearance, Urine CLOUDY High Clear Color, Urine YELLOW Normal Yellow PH,Urine 7.0 units Normal 5.0-9.0 Specific [place] Urine Auto 1.016 Normal 1.002-1.035 Protein, Urine [...] /LPF Normal 0-1 Laboratory test finding 01/17/[address] [address] [phone] Urine Culture FULL REPORT IN L <SEE NOTE> Normal 1 CBC With Differential 11/22/[address] 5519729 [phone] White Blood Count 4.7 10 Normal 4.0-10.0 [...] 36.0-66.0 Lymph % 37.4 % Normal 24.0-44.0 [place] % 10.8 % High 2.0-8.0 Eos % 7.3 % High 0.0-3.0 Baso % 0.6 % Normal 0.0-1.0 Immature Granulocyte % 0.4 % Normal 0-3.0 Nucleated Red Blood Cell % 0.0 % Normal 0-0 Neutrophils # 2.0 10 Normal 1.5-8.5 Lymph # 1.7 10 Normal 1.5-5.0 [place] # 0.5 10 Normal 0.0-0.8 Eos # 0.3 10 Normal 0.0-0.5 Baso # 0.0 10 Normal 0.0-0.2 Laboratory test finding 11/22/[address] 5845182 [phone] Ammonia 21 uMOL/L Normal <32 Comprehensive Metabolic Profil 11/22/[address] 8060878 [phone] Glucose, Fasting 100 mg/dL Normal 70-100 Blood [...] Ratio 1.4 Normal Laboratory test finding 11/22/2020 [facility] [address] [place] [address] [phone] Phenytoin (Dilantin) 18.3 UG/ML Normal 10.0-20.0 Phenobarbital Level 32.8 UG/ML Normal 15.0-40.0 Levetiracetam (Keppra) 27.6 ug/mL Normal 10.0-40.0 3 Lamotrigine (Lamictal) 6.5 ug/mL Normal 2.0-20.0 4 CBC With Differential 09/27/2020 [facility] [address] [place] [address] [phone] White Blood Count 4.9 10 Normal 4.0-10.0 [...] 36.0-66.0 Lymph % 27.0 % Normal 24.0-44.0 [place] % 9.3 % High 2.0-8.0 Eos % 6.5 % High 0.0-3.0 Baso % 0.8 % Normal 0.0-1.0 Immature Granulocyte % 0.0 % Normal 0-3.0 Nucleated Red Blood Cell % 0.0 % Normal 0-0 Neutrophils # 2.8 10 Normal 1.5-8.5 Lymph # 1.3 10 Low 1.5-5.0 [place] # 0.5 10 Normal 0.0-0.8 Eos # 0.3 10 Normal 0.0-0.5 Baso # 0.0 10 Normal 0.0-0.2 Comprehensive Metabolic Profil 09/27/2020 [place] 1218838 [phone] Glucose, Fasting 106 mg/dL High 70-100 Blood [...] Albumin/Globulin Ratio 1.3 Normal Lipid Panel 09/27/[address] [address] [phone] Triglycerides Level 109 mg/dL Normal <150 Cholesterol Level 156 mg/dL Normal <200 HDL Cholesterol 56 mg/dL Normal >40 LDL Cholesterol 78 mg/dL Normal <100 Non-HDL-C 100 mg/dL Normal Cholesterol Risk Ratio 2.785 Normal <5 FT4&TSH Panel 09/27/[address] [address] [phone] Thyroid Stimulating Hormone 2.130 uIU/ML Normal 0. 358-3.740 Free T4 0.48 ng/dL Low 0.76-1.46 Hemoglobin A1c 09/27/[address] [address] [phone] Hemoglobin A1c 5.7 % Normal 6 Estimated Average Glucose 117 mg/dL High 60-110 Laboratory test finding 09/27/2020 [place] [address] [place] [address] [phone] Ammonia 22 uMOL/L Normal <32 Phenytoin (Dilantin) 19.7 UG/ML Normal 10.0-20.0 Phenobarbital Level 33.4 UG/ML Normal 15.0-40.0 Levetiracetam (Keppra) 21.1 ug/mL Normal 10.0-40.0 7 Lamotrigine (Lamictal) 6.5 ug/mL Normal 2.0-20.0 8 Urine Culture 09/12/[address] [address] [phone] Urine Culture FULL REPORT IN L <SEE NOTE> Normal 9 Ua Routine 09/12/[address] [address] [phone] Appearance, Urine CLOUDY High Clear Color, Urine YELLOW Normal Yellow PH,Urine 7.0 units Normal 5.0-9.0 Specific [place] Urine Auto 1.019 Normal 1.002-1.035 Protein, Urine [...] Little GFR Left ESRD GFR <15 on TAXICAB COORDINATOR 3 This test was developed and its performance characteristics determined by [employer]. It has not been cleared or approved by the Food and Drug Administration. 4 Detection Limit = 1.0 Performed at: [address] [id number] 61 Field Sales Associate: Nomi Barrett MD, Phone: [phone] Units are mL/min/1.73 m2 Chronic Kidney Disease Staging per NKF: Stage I & II GFR >=60 Normal to Mildly Decreased Stage III GFR 30-59 Moderately Decreased Stage IV GFR 15-29 Severely Decreased Stage V GFR <15 Very Little GFR Left ESRD GFR <15 on TAXICAB COORDINATOR 6 REFERENCE RANGES: <=5.6% NORMAL 5.7-6.4% SUGGESTS IMPAIRED GLUCOSE META BOLISM/PREDIABETIC >= 6.5% ABNORMAL 7 This test was developed and its performance characteristics determined by [employer]. It has not been cleared or approved by the Food and Drug Administration. 8 Detection Limit = 1.0 Performed at: [facility] [address] [id number] 61 Field Sales Associate: Nomi Barrett MD, Phone: [phone] FULL REPORT IN LAB NOTES (eC W and [employer]). NO GROWTH CLINICAL SIGNIFICANCE 1 ORGANISM Procedures Date Code Description Status 01/11/2021 51636 Office/Outpatient Established Lo w MDM 20-29 Min Completed 08/09/2020 15442 Office/Outpatient Established Lo w MDM 20-29 Min Completed Encounters Type Date Location Provider Dx Diagnosis Office Visit 01/11/2021 2:00p [facility] JEANA James I10 Essential (primary) hyperten brian E78.5 Hyperlipidemia, unspecified G40.89 Other seizures Office Visit 12/06/2020 10:00a [facility] JEANA James Z00.00 Encntr for general adult med ical exam w/o abnormal findings I10 Essential (primary) hyperten brian E78.5 Hyperlipidemia, unspecified Office Visit 08/09/2020 10:00a [facility] JEANA James I10 Essential (primary) hyperten brian [...] Tavarez 08/09/2020 E78.5 Hyperlipidemia, unspecified JEANA Rothman Plan of Treatment Future Appointment(s):* 03/08/2021 10:30 am - JEANA Tavarez at [facility] * 12/07/2021 10:00 am - JEANA Tavarez at [facility]
--- OUTSIDE RECORDS SUMMARY | 2021-03-14 09:05 | CCD | Continuity of Care Document ---
Author Author Hemanth ENGEL P.A.-C. Organization Unknown Address [address] [place] [address] Phone [phone] Care Team Providers Care Foster Care Therapist Name Role Phone Carlitos Lozano AUTM [phone] Problems Description No Information Available Social History [...] M.D. 08/01/2018 Dilantin 100mg Capsules 1 po tid 90caps Olamide Mireles M.D. 2016 Phenobarbital 64.8mg [...] H/L Range Note CBC With Differential 11/22/2020 [facility] White Blood Count 4.7 10 Normal 4.0-10.0 [...] 36.0-66.0 Lymph % 37.4 % Normal 24.0-44.0 [place] % 10.8 % High 2.0-8.0 Eos % 7.3 % High 0.0-3.0 Baso % 0.6 % Normal 0.0-1.0 Immature Granulocyte % 0.4 % Normal 0-3.0 Nucleated Red Blood Cell % 0.0 % Normal 0-0 Neutrophils # 2.0 10 Normal 1.5-8.5 Lymph # 1.7 10 Normal 1.5-5.0 [place] # 0.5 10 Normal 0.0-0.8 Eos # 0.3 10 Normal 0.0-0.5 Baso # 0.0 10 Normal 0.0-0.2 Laboratory test finding 11/22/2020 [facility] Ammonia 21 uMOL/L Normal <32 Comprehensive Metabolic Profil 11/22/2020 [facility] Glucose, Fasting 100 mg/dL Normal 70-100 Blood [...] Ratio 1.4 Normal Laboratory test finding 11/22/2020 [facility] Phenytoin (Dilantin) 18.3 UG/ML Normal 10.0-20.0 Phenobarbital Level 32.8 UG/ML Normal 15.0-40.0 Levetiracetam (Keppra) 27.6 ug/mL Normal 10.0-40.0 2 Lamotrigine (Lamictal) 6.5 ug/mL Normal 2.0-20.0 3 Laboratory test finding 09/27/2020 [facility] Ammonia 22 uMOL/L Normal <32 Phenytoin (Dilantin) [...] Little GFR Left ESRD GFR <15 on CABLE BRAIDER 2 This test was developed and its performance characteristics determined by [employer]. It has not been cleared or approved by the Food and Drug Administration. 3 Detection Limit = 1.0 Performed at: [facility] [address] [id number] Supervisor Tank Storage: Nomi Barrett MD, Phone: [phone] This test was developed and its performance characteristics determined by [facility]. It has not been cleared or approved by the Food and Drug Administration. 5 Detection Limit = 1.0 Performed at: [address] [id number] 61 Supervisor Tank Storage: Nomi Barrett MD, Phone: [phone] Procedures Date Code Description Status 12/19/2020 16410 Office/Outpatient Established Mo d MDM 30-39 Min Completed 09/14/2020 23229 Office/Outpatient Established Lo w MDM 20-29 Min Completed Medical Devices Description No Information Available Encounters Type Date Location Provider Dx Diagnosis Office Visit 12/19/2020 11:15a [facility] Omayra uriarte P.A.-C. 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 12/19/2020 E72.20 Disorder of urea cycle metabolis m, unspecified Omayra Engel P.A.-C. 12/19/2020 E23.6 Other disorders of pituitary gla nd Omayra Engel P.A.-C. 12/19/2020 G91.8 Other hydrocephalus Omayra uriarte P.A.-C. 12/19/2020 F02.81 Dementia in other diseases class ified elsewhere with behavio Omayra Engel P.A.-C. 12/19/2020 R44.1 Visual hallucinations Omayra lalred P.A.-C. 12/19/2020 R53.83 Other fatigue Omayra Engel P.A.-C. 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 09/14/2020 E72.20 Disorder of urea cycle metabolis m, unspecified Omayra Engel P.A.-C. Plan of Treatment Future Appointment(s):* 03/29/2021 11:00 am - Omayra Engel P.A.-C. at Main office [facility] 12/19/2020 - Omayra Engel P.A.-C.* G40.309 Generalized idiopathic epilepsy and epileptic syndromes, not* Comments:* Controlled. Continue current medications. Recent serum levels were normal. * E72.20 Disorder of urea cycle metabolism, unspecified* Comments:* Reduce Lactulose to 20 ml bid. Repeat ammonia level in a week. Order given. 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 * G91.8 Other hydrocephalus* Comments:* Follow up at [facility]. * F02.81 Dementia in other diseases classified elsewhere with behavio* Comments: * Unchanged. He has taken Aricept and Namenda with adverse effect or no improvement in symptoms. * R44.1 Visual hallucinations* Comments:* Improved. * R53.83 Other fatigue* Comments:* Reduce Lactulose. Continue CPAP. * Follow up:* 3 months Functional Status Description No Information Available Mental Status Description No Information Available Referrals Description No Information Available"
--- OUTSIDE RECORDS SUMMARY | 2021-03-14 09:05 | CCD | Continuity of Care Document ---
Author Author Hemanth BONDS PA Organization Unknown Address [address] [place] [address] [address] [place] [address] Phone [phone] Care Team Providers Care Diffusion Furnace Operator Name Role Phone Ruy Jones [employer] [phone] Ruy Jones [employer]M [phone] Social History Type Date Description Comments Sex Unknown Immunizations CPT Code Status Date Vaccine Lot # [id number] Given 03/03/2008 Flu Injection Results Test Acquired Date Facility Test Result H/L Range Note Ua Routine 01/17/[address] [id number] [phone] Appearance, Urine CLOUDY High Clear Color, Urine YELLOW Normal Yellow PH,Urine 7.0 units Normal 5.0-9.0 Specific [place] Urine Auto 1.016 Normal 1.002-1.035 Protein, Urine [...] /LPF Normal 0-1 Laboratory test finding 01/17/[address] [address] [phone] Urine Culture FULL REPORT IN L <SEE NOTE> Normal 1 CBC With Differential 11/22/[address] 9746811 [phone] White Blood Count 4.7 10 Normal 4.0-10.0 [...] 36.0-66.0 Lymph % 37.4 % Normal 24.0-44.0 [place] % 10.8 % High 2.0-8.0 Eos % 7.3 % High 0.0-3.0 Baso % 0.6 % Normal 0.0-1.0 Immature Granulocyte % 0.4 % Normal 0-3.0 Nucleated Red Blood Cell % 0.0 % Normal 0-0 Neutrophils # 2.0 10 Normal 1.5-8.5 Lymph # 1.7 10 Normal 1.5-5.0 [place] # 0.5 10 Normal 0.0-0.8 Eos # 0.3 10 Normal 0.0-0.5 Baso # 0.0 10 Normal 0.0-0.2 Laboratory test finding 11/22/[address] 6328544 [phone] Ammonia 21 uMOL/L Normal <32 Comprehensive Metabolic Profil 11/22/[address] 3124261 [phone] Glucose, Fasting 100 mg/dL Normal 70-100 Blood [...] Ratio 1.4 Normal Laboratory test finding 11/22/2020 [facility] [address] [place] [address] [phone] Phenytoin (Dilantin) 18.3 UG/ML Normal 10.0-20.0 Phenobarbital Level 32.8 UG/ML Normal 15.0-40.0 Levetiracetam (Keppra) 27.6 ug/mL Normal 10.0-40.0 3 Lamotrigine (Lamictal) 6.5 ug/mL Normal 2.0-20.0 4 CBC With Differential 09/27/2020 [facility] [address] [place] [address] [phone] White Blood Count 4.9 10 Normal 4.0-10.0 [...] 36.0-66.0 Lymph % 27.0 % Normal 24.0-44.0 [place] % 9.3 % High 2.0-8.0 Eos % 6.5 % High 0.0-3.0 Baso % 0.8 % Normal 0.0-1.0 Immature Granulocyte % 0.0 % Normal 0-3.0 Nucleated Red Blood Cell % 0.0 % Normal 0-0 Neutrophils # 2.8 10 Normal 1.5-8.5 Lymph # 1.3 10 Low 1.5-5.0 [place] # 0.5 10 Normal 0.0-0.8 Eos # 0.3 10 Normal 0.0-0.5 Baso # 0.0 10 Normal 0.0-0.2 Comprehensive Metabolic Profil 09/27/2020 [place] 9415396 [phone] Glucose, Fasting 106 mg/dL High 70-100 Blood [...] Albumin/Globulin Ratio 1.3 Normal Lipid Panel 09/27/[address] [address] [phone] Triglycerides Level 109 mg/dL Normal <150 Cholesterol Level 156 mg/dL Normal <200 HDL Cholesterol 56 mg/dL Normal >40 LDL Cholesterol 78 mg/dL Normal <100 Non-HDL-C 100 mg/dL Normal Cholesterol Risk Ratio 2.785 Normal <5 FT4&TSH Panel 09/27/[address] [address] [phone] Thyroid Stimulating Hormone 2.130 uIU/ML Normal 0. 358-3.740 Free T4 0.48 ng/dL Low 0.76-1.46 Hemoglobin A1c 09/27/[address] [address] [phone] Hemoglobin A1c 5.7 % Normal 6 Estimated Average Glucose 117 mg/dL High 60-110 Laboratory test finding 09/27/2020 [place] [address] [place] [address] [phone] Ammonia 22 uMOL/L Normal <32 Phenytoin (Dilantin) 19.7 UG/ML Normal 10.0-20.0 Phenobarbital Level 33.4 UG/ML Normal 15.0-40.0 Levetiracetam (Keppra) 21.1 ug/mL Normal 10.0-40.0 7 Lamotrigine (Lamictal) 6.5 ug/mL Normal 2.0-20.0 8 Urine Culture 09/12/[address] [address] [phone] Urine Culture FULL REPORT IN L <SEE NOTE> Normal 9 Ua Routine 09/12/[address] [address] [phone] Appearance, Urine CLOUDY High Clear Color, Urine YELLOW Normal Yellow PH,Urine 7.0 units Normal 5.0-9.0 Specific [place] Urine Auto 1.019 Normal 1.002-1.035 Protein, Urine [...] Little GFR Left ESRD GFR <15 on SURVEILLANCE SPECIALIST 3 This test was developed and its performance characteristics determined by [employer]. It has not been cleared or approved by the Food and Drug Administration. 4 Detection Limit = 1.0 Performed at: [address] [id number] 61 Reshipping Clerk: Nomi Barrett MD, Phone: [phone] Units are mL/min/1.73 m2 Chronic Kidney Disease Staging per NKF: Stage I & II GFR >=60 Normal to Mildly Decreased Stage III GFR 30-59 Moderately Decreased Stage IV GFR 15-29 Severely Decreased Stage V GFR <15 Very Little GFR Left ESRD GFR <15 on SURVEILLANCE SPECIALIST 6 REFERENCE RANGES: <=5.6% NORMAL 5.7-6.4% SUGGESTS IMPAIRED GLUCOSE META BOLISM/PREDIABETIC >= 6.5% ABNORMAL 7 This test was developed and its performance characteristics determined by [employer]. It has not been cleared or approved by the Food and Drug Administration. 8 Detection Limit = 1.0 Performed at: [facility] [address] [id number] Reshipping Clerk: Nomi Barrett MD, Phone: [phone] FULL REPORT IN LAB NOTES (eC W and [employer]). NO GROWTH CLINICAL SIGNIFICANCE 1 ORGANISM Procedures Date Code Description Status 01/11/2021 28243 Office/Outpatient Established Lo w MDM 20-29 Min Completed Encounters Type Date Location Provider Dx Diagnosis Office Visit 01/11/2021 2:00p [facility] JEANA James I10 Essential (primary) hyperten brian E78.5 Hyperlipidemia, unspecified G40.89 Other seizures Office Visit 12/06/2020 10:00a [facility] JEANA James Z00.00 Encntr for general [...] 03/08/2021 10:30 am - JEANA Tavarez at [facility] * 12/07/2021 10:00 am - JEANA Tavarez at [facility]
--- OUTSIDE RECORDS SUMMARY | 2021-03-14 09:05 | CCD | Continuity of Care Document ---
Author Organization Unknown Address Unknown Phone Unavailable Care Team Providers Care Locket Maker Name Role Phone Ruy Jones AUTM [phone] Ruy Jones AUTM [phone] Social History Type Date Description Comments Sex Unknown Immunizations CPT Code Status Date Vaccine Lot # [id number] Given 03/03/2008 Flu Injection Results Test Acquired Date Facility Test Result H/L Range Note Ua Routine 01/17/[address] [address] [phone] Appearance, Urine CLOUDY High Clear Color, Urine YELLOW Normal Yellow PH,Urine 7.0 units Normal 5.0-9.0 Specific [place] Urine Auto 1.016 Normal 1.002-1.035 Protein, Urine [...] /LPF Normal 0-1 Laboratory test finding 01/17/2021 [facility] [address] [place] [address] [phone] Urine Culture FULL REPORT IN L <SEE NOTE> Normal 1 CBC With Differential 11/22/2020 [address] [place] [address] [phone] White Blood Count 4.7 10 Normal 4.0-10.0 [...] 36.0-66.0 Lymph % 37.4 % Normal 24.0-44.0 [place] % 10.8 % High 2.0-8.0 Eos % 7.3 % High 0.0-3.0 Baso % 0.6 % Normal 0.0-1.0 Immature Granulocyte % 0.4 % Normal 0-3.0 Nucleated Red Blood Cell % 0.0 % Normal 0-0 Neutrophils # 2.0 10 Normal 1.5-8.5 Lymph # 1.7 10 Normal 1.5-5.0 [place] # 0.5 10 Normal 0.0-0.8 Eos # 0.3 10 Normal 0.0-0.5 Baso # 0.0 10 Normal 0.0-0.2 Laboratory test finding 11/22/2020 [address] [place], [place] [address] [phone] Ammonia 21 uMOL/L Normal <32 Comprehensive Metabolic Profil 11/22/[address] [id number] [phone] Glucose, Fasting 100 mg/dL Normal 70-100 Blood [...] Ratio 1.4 Normal Laboratory test finding 11/22/2020 [facility] [address] [place], [place] [address] [phone] Phenytoin (Dilantin) 18.3 UG/ML Normal 10.0-20.0 Phenobarbital Level 32.8 UG/ML Normal 15.0-40.0 Levetiracetam (Keppra) 27.6 ug/mL Normal 10.0-40.0 3 Lamotrigine (Lamictal) 6.5 ug/mL Normal 2.0-20.0 4 CBC With Differential 09/27/2020 [address] [place] [address] [phone] White Blood Count 4.9 10 Normal 4.0-10.0 [...] 36.0-66.0 Lymph % 27.0 % Normal 24.0-44.0 [place] % 9.3 % High 2.0-8.0 Eos % 6.5 % High 0.0-3.0 Baso % 0.8 % Normal 0.0-1.0 Immature Granulocyte % 0.0 % Normal 0-3.0 Nucleated Red Blood Cell % 0.0 % Normal 0-0 Neutrophils # 2.8 10 Normal 1.5-8.5 Lymph # 1.3 10 Low 1.5-5.0 [place] # 0.5 10 Normal 0.0-0.8 Eos # 0.3 10 Normal 0.0-0.5 Baso # 0.0 10 Normal 0.0-0.2 Comprehensive Metabolic Profil 09/27/[address] [id number] [phone] Glucose, Fasting 106 mg/dL High 70-100 Blood [...] Albumin/Globulin Ratio 1.3 Normal Lipid Panel 09/27/[address] [address] [phone] Triglycerides Level 109 mg/dL Normal <150 Cholesterol Level 156 mg/dL Normal <200 HDL Cholesterol 56 mg/dL Normal >40 LDL Cholesterol 78 mg/dL Normal <100 Non-HDL-C 100 mg/dL Normal Cholesterol Risk Ratio 2.785 Normal <5 FT4&TSH Panel 09/27/[address] [address] [phone] Thyroid Stimulating Hormone 2.130 uIU/ML Normal 0. 358-3.740 Free T4 0.48 ng/dL Low 0.76-1.46 Hemoglobin A1c 09/27/[address] [address] [phone] Hemoglobin A1c 5.7 % Normal 6 Estimated Average Glucose 117 mg/dL High 60-110 Laboratory test finding 09/27/2020 [facility] [address] [place] [address] [phone] Ammonia 22 uMOL/L Normal <32 Phenytoin (Dilantin) 19.7 UG/ML Normal 10.0-20.0 Phenobarbital Level 33.4 UG/ML Normal 15.0-40.0 Levetiracetam (Keppra) 21.1 ug/mL Normal 10.0-40.0 7 Lamotrigine (Lamictal) 6.5 ug/mL Normal 2.0-20.0 8 Urine Culture 09/12/[address] [address] [phone] Urine Culture FULL REPORT IN L <SEE NOTE> Normal 9 Ua Routine 09/12/[address] [address] [phone] Appearance, Urine CLOUDY High Clear Color, Urine YELLOW Normal Yellow PH,Urine 7.0 units Normal 5.0-9.0 Specific [place] Urine Auto 1.019 Normal 1.002-1.035 Protein, Urine [...] Little GFR Left ESRD GFR <15 on POTATO SEED CUTTER 3 This test was developed and its performance characteristics determined by [employer]. It has not been cleared or approved by the Food and Drug Administration. 4 Detection Limit = 1.0 Performed at: [facility] [address] [id number] 61 President And Chief Operating Officer: Nomi Barrett MD, Phone: [phone] Units are mL/min/1.73 m2 Chronic Kidney Disease Staging per NKF: Stage I & II GFR >=60 Normal to Mildly Decreased Stage III GFR 30-59 Moderately Decreased Stage IV GFR 15-29 Severely Decreased Stage V GFR <15 Very Little GFR Left ESRD GFR <15 on POTATO SEED CUTTER 6 REFERENCE RANGES: <=5.6% NORMAL 5.7-6.4% SUGGESTS IMPAIRED GLUCOSE META BOLISM/PREDIABETIC >= 6.5% ABNORMAL 7 This test was developed and its performance characteristics determined by [employer]. It has not been cleared or approved by the Food and Drug Administration. 8 Detection Limit = 1.0 Performed at: [facility] [address] [id number] 61 President And Chief Operating Officer: Nomi Barrett MD, Phone: [phone] FULL REPORT IN LAB NOTES (eC W and [employer]). NO GROWTH CLINICAL SIGNIFICANCE 1 ORGANISM Procedures Date Code Description Status 01/11/2021 70838 Office/Outpatient Established Lo w [facility] 20-29 Min Completed Encounters Type Date Location Provider Dx Diagnosis Office Visit 01/11/2021 2:00p [facility] JEANA James I10 Essential (primary) hyperten brian E78.5 Hyperlipidemia, unspecified G40.89 Other seizures Office Visit 12/06/2020 10:00a [facility] JEANA James Z00.00 Encntr for [...] 03/08/2021 10:30 am - JEANA Tavarez at [facility] * 12/07/2021 10:00 am - JEANA Tavarez at [facility]
--- OUTSIDE RECORDS SUMMARY | 2021-03-14 09:05 | CCD | Continuity of Care Document ---
Author Author Hemanth ENGEL P.A.-C. Organization Unknown Address [address] [place] [address] Phone [phone] Care Team Providers Care Butcher Or Smallgoods Maker Name Role Phone Carlitos Lozano AUTM [phone] Problems Description No Information Available Social History [...] 132 mmHg VS as reporte d by PTATI nurse BP Diastolic 72 mmHg VS as reported by JR Whyte nurse Heart Rate 80 /min Respiratory Rate 16 /min Weight 228.38 lb O2 % BldC Oximetry 96 % Results Test Acquired Date Facility Test Result H/L Range Note Laboratory test finding 01/06/2021 [facility] Ammonia 50 uMOL/L High <32 CBC With Differential 11/22/2020 [facility] White Blood Count 4.7 10 Normal [...] 36.0-66.0 Lymph % 37.4 % Normal 24.0-44.0 [place] % 10.8 % High 2.0-8.0 Eos % 7.3 % High 0.0-3.0 Baso % 0.6 % Normal 0.0-1.0 Immature Granulocyte % 0.4 % Normal 0-3.0 Nucleated Red Blood Cell % 0.0 % Normal 0-0 Neutrophils # 2.0 10 Normal 1.5-8.5 Lymph # 1.7 10 Normal 1.5-5.0 [place] # 0.5 10 Normal 0.0-0.8 Eos # 0.3 10 Normal 0.0-0.5 Baso # 0.0 10 Normal 0.0-0.2 Laboratory test finding 11/22/2020 [facility] Ammonia 21 uMOL/L Normal <32 Comprehensive Metabolic Profil 11/22/2020 [facility] Glucose, Fasting 100 mg/dL Normal 70-100 [...] Ratio 1.4 Normal Laboratory test finding 11/22/2020 [facility] Phenytoin (Dilantin) 18.3 UG/ML Normal 10.0-20.0 Phenobarbital Level 32.8 UG/ML Normal 15.0-40.0 Levetiracetam (Keppra) 27.6 ug/mL Normal 10.0-40.0 2 Lamotrigine (Lamictal) 6.5 ug/mL Normal 2.0-20.0 3 Laboratory test finding 09/27/2020 [facility] Ammonia 22 uMOL/L Normal <32 Phenytoin [...] Little GFR Left ESRD GFR <15 on DYE MAKER 2 This test was developed and its performance characteristics determined by [employer]. It has not been cleared or approved by the Food and Drug Administration. 3 Detection Limit = 1.0 Performed at: [facility] [id number] 61 Assembler Watch Train: Nomi Barrett MD, Phone: [phone] This test was developed and its performance characteristics determined by [employer]. It has not been cleared or approved by the Food and Drug Administration. 5 Detection Limit = 1.0 Performed at: [facility] [id number] 61 Assembler Watch Train: Nomi Barrett MD, Phone: [phone] Procedures Date Code Description Status 12/19/2020 66711 Office/Outpatient Established Mo d MDM 30-39 Min Completed 09/14/2020 82588 Office/Outpatient Established Lo w MDM 20-29 Min Completed Medical Devices Description No Information Available Encounters Type Date Location Provider Dx Diagnosis Office Visit 12/19/2020 11:15a Main office - [place] Sylvia Garland.A.-C. 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 G40.309 Gen idiopathic epilepsy, [...] Engel P.A.-C. 12/19/2020 R44.1 Visual hallucinations Omayra allred P.A.-C. 12/19/2020 R53.83 Other fatigue Omayra Engel P.A.-C. 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 09/14/2020 E72.20 Disorder of urea cycle metabolis m, unspecified Omayra Enegl P.A.-C. Plan of Treatment Future Appointment(s):* 01/18/2021 8:15 am - Omayra Engel P.A.-C. at Main office - [place] * 03/29/2021 11:00 am - Omayra Engel P.A.-C. 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 Continue current medications. Recent serum levels were normal. * E72.20 Disorder of urea cycle metabolism, unspecified* Comments:* Reduce Lactulose to 20 ml bid. Repeat ammonia level in a week. Order given. 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 * G91.8 Other hydrocephalus* Comments:* Follow up at [facility]. * F02.81 Dementia in other diseases classified [...]
--- OUTSIDE RECORDS SUMMARY | 2021-03-14 09:05 | CCD | Continuity of Care Document ---
Author Author Hemanth ENGEL P.A.-C. Organization Unknown Address [address] [place] [address] Phone [phone] Care Team Providers Care Transformer Shop Supervisor Name Role Phone Carlitos Lozano AUTM [phone] Problems Description No Information Available Social History [...] H/L Range Note CBC With Differential 11/22/2020 [facility] White Blood Count 4.7 10 Normal 4.0-10.0 [...] 36.0-66.0 Lymph % 37.4 % Normal 24.0-44.0 [place] % 10.8 % High 2.0-8.0 Eos % 7.3 % High 0.0-3.0 Baso % 0.6 % Normal 0.0-1.0 Immature Granulocyte % 0.4 % Normal 0-3.0 Nucleated Red Blood Cell % 0.0 % Normal 0-0 Neutrophils # 2.0 10 Normal 1.5-8.5 Lymph # 1.7 10 Normal 1.5-5.0 [place] # 0.5 10 Normal 0.0-0.8 Eos # 0.3 10 Normal 0.0-0.5 Baso # 0.0 10 Normal 0.0-0.2 Laboratory test finding 11/22/2020 [facility] Ammonia 21 uMOL/L Normal <32 Comprehensive Metabolic Profil 11/22/2020 [facility] Glucose, Fasting 100 mg/dL Normal 70-100 Blood [...] 1.4 Normal Laboratory test finding 11/22/2020 [facility] Phenytoin (Dilantin) 18.3 UG/ML Normal 10.0-20.0 Phenobarbital Level 32.8 UG/ML Normal 15.0-40.0 Levetiracetam (Keppra) 27.6 ug/mL Normal 10.0-40.0 2 Lamotrigine (Lamictal) 6.5 ug/mL Normal 2.0-20.0 3 Laboratory test finding 09/27/2020 [facility] Ammonia 22 uMOL/L Normal <32 Phenytoin (Dilantin) [...] Little GFR Left ESRD GFR <15 on OPERATIONS SUPERINTENDENT 2 This test was developed and its performance characteristics determined by [employer]. It has not been cleared or approved by the Food and Drug Administration. 3 Detection Limit = 1.0 Performed at: [facility] [id number] 61 Cylinder Head Assembler: Nomi Barrett MD, Phone: [phone] 4 This test was developed and its performance characteristics determined by [employer]. It has not been cleared or approved by the Food and Drug Administration. 5 Detection Limit = 1.0 Performed at: [address] [id number] 61 Cylinder Head Assembler: Nomi Barrett MD, Phone: [phone] Procedures Date Code Description Status 09/14/2020 36181 Office/Outpatient Established Lo w MDM 20-29 Min Completed Medical Devices Description No Information Available Encounters Type Date Location Provider Dx Diagnosis Office Visit 09/14/2020 1:45p Main office - [place] Omayra uriarte P.A.-C. 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 12/19/2020 E72.20 Disorder of urea cycle [...] unspecified Omayra Engel P.A.-C. Plan of Treatment No Information Available Functional Status Description No Information Available Mental Status Description No Information Available Referrals Description No Information Available"
--- OUTSIDE RECORDS SUMMARY | 2021-03-14 09:05 | CCD | Continuity of Care Document ---
Author Author Hemanth ENGEL P.A.-C. Organization Unknown Address [address] [place] [address] Phone [phone] Care Team Providers Care Cloth Dye Range Operator Name Role Phone Carlitos Lozano AUTM [phone] Problems Description No Information Available Social History [...] Available Vital Signs Date Vital Result Comment 01/18/2021 9:41am BP Systolic 118 mmHg BP Diastolic 70 mmHg Heart Rate 64 /min Respiratory Rate 20 /min 12/19/2020 7:05am BP Systolic 110 mmHg BP Diastolic 70 mmHg Heart Rate 76 /min Respiratory Rate 16 /min Results Test Acquired Date Facility Test Result H/L Range Note Laboratory test finding 01/06/2021 [facility] Ammonia 50 uMOL/L High <32 CBC With Differential 11/22/2020 [facility] White Blood Count 4.7 10 Normal [...] 36.0-66.0 Lymph % 37.4 % Normal 24.0-44.0 [place] % 10.8 % High 2.0-8.0 Eos % 7.3 % High 0.0-3.0 Baso % 0.6 % Normal 0.0-1.0 Immature Granulocyte % 0.4 % Normal 0-3.0 Nucleated Red Blood Cell % 0.0 % Normal 0-0 Neutrophils # 2.0 10 Normal 1.5-8.5 Lymph # 1.7 10 Normal 1.5-5.0 [place] # 0.5 10 Normal 0.0-0.8 Eos # 0.3 10 Normal 0.0-0.5 Baso # 0.0 10 Normal 0.0-0.2 Laboratory test finding 11/22/2020 [facility] Ammonia 21 uMOL/L Normal <32 Comprehensive Metabolic Profil 11/22/2020 [facility] Glucose, Fasting 100 mg/dL Normal 70-100 [...] Ratio 1.4 Normal Laboratory test finding 11/22/2020 [facility] Phenytoin (Dilantin) 18.3 UG/ML Normal 10.0-20.0 Phenobarbital Level 32.8 UG/ML Normal 15.0-40.0 Levetiracetam (Keppra) 27.6 ug/mL Normal 10.0-40.0 2 Lamotrigine (Lamictal) 6.5 ug/mL Normal 2.0-20.0 3 Laboratory test finding 09/27/2020 [facility] Ammonia 22 uMOL/L Normal <32 Phenytoin [...] Little GFR Left ESRD GFR <15 on SQL BI DEVELOPER 2 This test was developed and its performance characteristics determined by [employer] It has not been cleared or approved by the Food and Drug Administration. 3 Detection Limit = 1.0 Performed at: [facility] [employer] [id number] 61 Senior Stack Engineer: Nomi Barrett MD, Phone: [phone] This test was developed and its performance characteristics determined by [employer]. It has not been cleared or approved by the Food and Drug Administration. 5 Detection Limit = 1.0 Performed at: [address] [id number] 61 Senior Stack Engineer: Nomi Barrett MD, Phone: [phone] Procedures Date Code Description Status 01/18/2021 77108 Office/Outpatient Established Mo d MDM 30-39 Min Completed 12/19/2020 24564 Office/Outpatient Established Mo d MDM 30-39 Min Completed 09/14/2020 77797 Office/Outpatient Established Lo w MDM 20-29 Min Completed Medical Devices Description No Information Available Encounters Type Date Location Provider Dx Diagnosis Office Visit 01/18/2021 8:15a Main office - [place] Omayra uriarte P.A.-C. 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 01/18/2021 E72.20 Disorder of urea cycle metabolis m, unspecified Sylvia Jara.A.-C. 01/18/2021 E23.6 Other disorders of pituitary gla nd Omayra Engel, P.A.-C. 01/18/2021 G91.8 Other hydrocephalus Omayra KuldeepVaibhav uriarte, P.A.-C. 01/18/2021 F02.81 Dementia in other diseases class ified elsewhere with behavio Omayra Engel, P.A.-C. 01/18/2021 R44.1 Visual hallucinations Omayra J. Jonathon allred, P.A.-C. 01/18/2021 R53.83 Other fatigue Omayra Engel, P.A.-C. 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 12/19/2020 E72.20 Disorder of urea cycle metabolis m, unspecified Omayra Engel, P.A.-C. 12/19/2020 E23.6 Other disorders of pituitary gla nd Omayra Engel, P.A.-C. 12/19/2020 G91.8 Other hydrocephalus Omayra uriarte, P.A.-C. 12/19/2020 F02.81 Dementia in other diseases class ified elsewhere with luis felipeo Omayra Engel, P.A.-C. 12/19/2020 R44.1 Visual hallucinations Omayra J. Jonathon allred, P.A.-C. 12/19/2020 R53.83 Other fatigue Omayra Engel, P.A.-C. 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 09/14/2020 E72.20 Disorder of urea cycle metabolis m, unspecified Carmine JaraCVaibhav Plan of Treatment Future Appointment(s):* 04/23/2021 11:30 am - Omayra Engel P.A.-C. 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 Get records from [facility]. * E72.20 Disorder of urea cycle metabolism, unspecified* Comments:* Consider increasing his Lactulose dose again. Reassess at next appt. 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 * G91.8 Other hydrocephalus* Comments:* Follow up at [facility]. * F02.81 Dementia in other diseases classified elsewhere with behavio* Comments: * He has taken Aricept and Namenda with adverse effect or no improvement in symptoms. * R44.1 Visual hallucinations* Comments:* Improved. * R53.83 Other fatigue* Comments:* Improved. * Follow up:* 3 months Functional Status Description No Information Available Mental Status Description No Information Available Referrals Description No Information Available"
--- OUTSIDE RECORDS SUMMARY | 2021-03-14 09:06 | CCD | Continuity of Care Document ---
Author Author Hemanth BONDS PA Organization Unknown Address [address] [place] [address] [address] [place] [address] Phone [phone] Care Team Providers Care Chief Juvenile Probation Officer Name Role Phone Ruy Jones AUTM [phone] Ruy Jones [employer] [phone] Social History Type Date Description Comments Sex Unknown Immunizations CPT Code Status Date Vaccine Lot # [id number] Given 03/03/2008 Flu Injection Results Test Acquired Date Facility Test Result H/L Range Note CBC With Differential 11/22/[address] [address] [phone] White Blood Count 4.7 10 Normal 4.0-10.0 [...] 36.0-66.0 Lymph % 37.4 % Normal 24.0-44.0 [place] % 10.8 % High 2.0-8.0 Eos % 7.3 % High 0.0-3.0 Baso % 0.6 % Normal 0.0-1.0 Immature Granulocyte % 0.4 % Normal 0-3.0 Nucleated Red Blood Cell % 0.0 % Normal 0-0 Neutrophils # 2.0 10 Normal 1.5-8.5 Lymph # 1.7 10 Normal 1.5-5.0 [place] # 0.5 10 Normal 0.0-0.8 Eos # 0.3 10 Normal 0.0-0.5 Baso # 0.0 10 Normal 0.0-0.2 Laboratory test finding 11/22/[address] [id number] [phone] Ammonia 21 uMOL/L Normal <32 Comprehensive Metabolic Profil 11/22/[address] [id number] [phone] Glucose, Fasting 100 mg/dL Normal 70-100 Blood [...] Ratio 1.4 Normal Laboratory test finding 11/22/[address] [address] [phone] Phenytoin (Dilantin) 18.3 UG/ML Normal 10.0-20.0 Phenobarbital Level 32.8 UG/ML Normal 15.0-40.0 Levetiracetam (Keppra) 27.6 ug/mL Normal 10.0-40.0 2 Lamotrigine (Lamictal) 6.5 ug/mL Normal 2.0-20.0 3 CBC With Differential 09/27/[address] [id number] [phone] White Blood Count 4.9 10 Normal 4.0-10.0 [...] 36.0-66.0 Lymph % 27.0 % Normal 24.0-44.0 [place] % 9.3 % High 2.0-8.0 Eos % 6.5 % High 0.0-3.0 Baso % 0.8 % Normal 0.0-1.0 Immature Granulocyte % 0.0 % Normal 0-3.0 Nucleated Red Blood Cell % 0.0 % Normal 0-0 Neutrophils # 2.8 10 Normal 1.5-8.5 Lymph # 1.3 10 Low 1.5-5.0 [place] # 0.5 10 Normal 0.0-0.8 Eos # 0.3 10 Normal 0.0-0.5 Baso # 0.0 10 Normal 0.0-0.2 Comprehensive Metabolic Profil 09/27/[address] [id number] [phone] Glucose, Fasting 106 mg/dL High 70-100 Blood [...] Albumin/Globulin Ratio 1.3 Normal Lipid Panel 09/27/[address] [address] [phone] Triglycerides Level 109 mg/dL Normal <150 Cholesterol Level 156 mg/dL Normal <200 HDL Cholesterol 56 mg/dL Normal >40 LDL Cholesterol 78 mg/dL Normal <100 Non-HDL-C 100 mg/dL Normal Cholesterol Risk Ratio 2.785 Normal <5 FT4&TSH Panel 09/27/[address] [address] [phone] Thyroid Stimulating Hormone 2.130 uIU/ML Normal 0. 358-3.740 Free T4 0.48 ng/dL Low 0.76-1.46 Hemoglobin A1c 09/27/[address] [address] [phone] Hemoglobin A1c 5.7 % Normal 5 Estimated Average Glucose 117 mg/dL High 60-110 Laboratory test finding 09/27/[address] [address] [phone] Ammonia 22 uMOL/L Normal <32 Phenytoin (Dilantin) 19.7 UG/ML Normal 10.0-20.0 Phenobarbital Level 33.4 UG/ML Normal 15.0-40.0 Levetiracetam (Keppra) 21.1 ug/mL Normal 10.0-40.0 6 Lamotrigine (Lamictal) 6.5 ug/mL Normal 2.0-20.0 7 Urine Culture 09/12/[address] [address] [phone] Urine Culture FULL REPORT IN L <SEE NOTE> Normal 8 Ua Routine 09/12/[address] [address] [phone] Appearance, Urine CLOUDY High Clear Color, Urine YELLOW Normal Yellow PH,Urine 7.0 units Normal 5.0-9.0 Specific [place] Urine Auto 1.019 Normal 1.002-1.035 Protein, Urine [...] Little GFR Left ESRD GFR <15 on DRYING [employer] WORK[employer] 2 This test was developed and its performance characteristics determined by [facility]. It has not been cleared or approved by the Food and Drug Administration. 3 Detection Limit = 1.0 Performed at: [facility] [address] [id number] Employee: Nomi Barrett MD, Phone: [phone] Units are mL/min/1.73 m2 Chronic Kidney Disease Staging per NKF: Stage I & II GFR >=60 Normal to Mildly Decreased Stage III GFR 30-59 Moderately Decreased Stage IV GFR 15-29 Severely Decreased Stage V GFR <15 Very Little GFR Left ESRD GFR <15 on DRYING [employer] WORK[employer] 5 REFERENCE RANGES: <=5.6% NORMAL 5.7-6.4% SUGGESTS IMPAIRED GLUCOSE META BOLISM/PREDIABETIC >= 6.5% ABNORMAL 6 This test was developed and its performance characteristics determined by [facility]. It has not been cleared or approved by the Food and Drug Administration. 7 Detection Limit = 1.0 Performed at: [facility] [address] [id number] [employer] Employee: Nomi Barrett MD, Phone: [phone] FULL REPORT IN LAB NOTES (eC W and [facility]). NO GROWTH CLINICAL SIGNIFICANCE 1 ORGANISM Procedures Date Code Description Status 08/09/2020 75648 Office/Outpatient Established Lo w MDM 20-29 Min Completed 06/21/2020 35119 Office/Outpatient Established SF MDM 10-19 Min Completed Encounters Type Date Location Provider Dx Diagnosis Office Visit 12/06/2020 10:00a [facility] JEANA James Z00.00 Encntr for general adult med ical exam w/o abnormal findings I10 Essential (primary) hyperten brian E78.5 Hyperlipidemia, unspecified Office Visit 08/09/2020 10:00a [facility] JEANA James I10 Essential (primary) hyperten brian E78.5 Hyperlipidemia, unspecified Office Visit 06/21/2020 12:30p [facility] JEANA James L02.811 Cutaneous abscess of head [...] 03/08/2021 10:30 am - JEANA Tavarez at [facility] * 12/07/2021 10:00 am - JEANA Tavarez at [facility]
--- OUTSIDE RECORDS SUMMARY | 2021-03-14 09:07 | CCD ---
Author Author [facility] Address Unknown Phone Unavailable Care Team Providers Care Cobbler Upper Name Role Phone Tip Aguilar Unavailable Unavailable Tip Aguilar Unavailable Unavailable Tip Aguilar Unavailable Unavailable Tip gAuilar Unavailable Unavailable Tip Aguilar Unavailable Unavailable Tip Aguilar Unavailable Unavailable Tip Aguilar Unavailable Unavailable Rocio, L Mily EXPLOSIVE MAN Unavailable Unavailable Rocio, L Mily EXPLOSIVE MAN Unavailable Unavailable Rocio, L Mily EXPLOSIVE MAN Unavailable Unavailable Rocio, L Mily EXPLOSIVE MAN Unavailable Unavailable Rocio, L Mily EXPLOSIVE MAN Unavailable Unavailable Rocio, L Mily EXPLOSIVE MAN Unavailable Unavailable Rocio, L Mily EXPLOSIVE MAN Unavailable Unavailable Rocio, L Mily EXPLOSIVE MAN Unavailable Unavailable Rocio, L Mily EXPLOSIVE MAN Unavailable Unavailable Rocio, L Mily EXPLOSIVE MAN Unavailable Unavailable Rocio, L Mily EXPLOSIVE MAN Unavailable Unavailable Rocio, L Mily EXPLOSIVE MAN Unavailable Unavailable Rocio, L Mily EXPLOSIVE MAN Unavailable Unavailable Rocio, L Mily EXPLOSIVE MAN Unavailable Unavailable Rocio, L Mily EXPLOSIVE MAN Unavailable Unavailable Rocio, L Mily EXPLOSIVE MAN Unavailable Unavailable Rocio, L Mily EXPLOSIVE MAN Unavailable Unavailable Rocio, L Mily EXPLOSIVE MAN Unavailable Unavailable Rocio, L Mily EXPLOSIVE MAN Unavailable Unavailable Rocio, L Mily EXPLOSIVE MAN Unavailable Unavailable Rocio, L Mily EXPLOSIVE MAN Unavailable Unavailable Rocio, L Mily EXPLOSIVE MAN Unavailable Unavailable Rocio, L Mily EXPLOSIVE MAN Unavailable Unavailable Rocio, L Mily EXPLOSIVE MAN Unavailable Unavailable Rocio, L Mily EXPLOSIVE MAN Unavailable Unavailable Paniagua, P Ceasar Unavailable Unavailable Paniagua, P Ceasar Unavailable Unavailable Paniagua, P Ceasar Unavailable Unavailable Paniagua, P Ceasar Unavailable Unavailable Paniagua, P Ceasar Unavailable Unavailable Paniagua, P Ceasar Unavailable Unavailable Paniagua, P Ceasar Unavailable Unavailable Nathalia RUBIN MD Unavailable Unavailable Nathalia RUBIN MD Unavailable Unavailable Nathalia RUBIN MD Unavailable Unavailable Nathalia RUBIN MD Unavailable Unavailable Swarnkar, Contreras Unavailable Unavailable Swarnkar, Contreras Unavailable Unavailable Swarnkar, Contreras Unavailable Unavailable Swarnkar, Contreras Unavailable Unavailable Swarnkar, Contreras Unavailable Unavailable Trickey, J Omayra PA Unavailable [...] Unavailable Trickey, J Omayra PA Unavailable Unavailable TONTARSKI, G CARLITOS PA Unavailable Unavailable TONTARSKI, G CARLITOS PA Unavailable Unavailable TONTARSKI, G CARLITOS PA Unavailable Unavailable TONTARSKI, G CARLITOS PA Unavailable Unavailable TONTARSKI, G CARLITOS PA Unavailable Unavailable TONTARSKI, G CARLITOS PA Unavailable Unavailable TONTARSKI, G CARLITOS PA Unavailable Unavailable TONTARSKI, G CARLITOS PA Unavailable Unavailable TONTARSKI, G CARLITOS PA Unavailable Unavailable TONTARSKI, G CARLITOS PA Unavailable Unavailable TONTARSKI, G CARLITOS PA Unavailable Unavailable TONTARSKI, G CARLITOS PA Unavailable Unavailable TONTARSKI, G CARLITOS PA Unavailable Unavailable TONTARSKI, G CARLITOS PA Unavailable Unavailable TONTARSKI, G CARLITOS PA Unavailable Unavailable TONTARSKI, G CARLITOS PA Unavailable Unavailable TONTARSKI, G CARLITOS PA Unavailable Unavailable TONTARSKI, G CARLITOS PA Unavailable Unavailable TONTARSKI, G CARLITOS PA Unavailable Unavailable TONTARSKI, G CARLITOS PA Unavailable Unavailable TONTARSKI, G CARLITOS PA Unavailable Unavailable TONTARSKI, G CARLITOS PA Unavailable Unavailable TONTARSKI, G CARLITOS PA Unavailable Unavailable TONTARSKI, G CARLITOS PA Unavailable Unavailable TONTARSKI, G CARLITOS PA Unavailable Unavailable TONTARSKI, G CARLITOS PA Unavailable Unavailable TONTARSKI, G CARLITOS PA Unavailable Unavailable TONTARSKI, G CARLITOS PA Unavailable Unavailable TONTARSKI, G CARLITOS PA Unavailable Unavailable TONTARSKI, G CARLITOS PA Unavailable Unavailable TONTARSKI, G CARLITOS PA Unavailable Unavailable TONTARSKI, G CARLITOS PA Unavailable Unavailable TONTARSKI, G CARLITOS PA Unavailable Unavailable TONTARSKI, G CARLITOS PA Unavailable Unavailable TONTARSKI, G CARLITOS PA Unavailable Unavailable TONTARSKI, G CARLITOS PA Unavailable Unavailable TONTARSKI, G CARLITOS PA Unavailable Unavailable TONTARSKI, G CARLITOS PA Unavailable Unavailable TONTARSKI, G CARLITOS PA Unavailable Unavailable TONTARSKI, G CARLITOS PA Unavailable Unavailable TONTARSKI, G CARLITOS PA Unavailable Unavailable TONTARSKI, G CARLITOS PA Unavailable Unavailable TONTARSKI, G CARLITOS PA Unavailable Unavailable TONTARSKI, G CARLITOS PA Unavailable Unavailable TONTARSKI, G CARLITOS PA Unavailable Unavailable TONTARSKI, G CARLITOS PA Unavailable Unavailable TONTARSKI, G CARLITOS PA Unavailable Unavailable Nathalia Pool MD Unavailable [...] Unavailable Unavailable Nathalia Pool MD Unavailable Unavailable Vaneenenaam, Nathalia Schulte MD Unavailable Unavailable Vaneenenaam, Nathalia Schulte MD Unavailable Unavailable Vaneenenaam, Nathalia Schulte MD Unavailable Unavailable Vaneenenaam, Nathalia cShulte MD Unavailable Unavailable Vaneenenaam, Nathalia Schulte MD Unavailable Unavailable Vaneenenaam, Nathalia Schulte MD Unavailable Unavailable Vaneenenaam, Nathalia Schulte MD Unavailable Unavailable Vaneenenaam, Nathalia Schulte MD Unavailable Unavailable Vaneenenaam, Nathalia Shculte MD Unavailable Unavailable Vaneenenaam, Nathalia Schulte MD Unavailable Unavailable Vaneenenaam, Nathalia Schulte MD Unavailable Unavailable Vaneenenaam, Nathalia Schulte MD Unavailable Unavailable Vaneenenaam, Nathalia Schulte MD Unavailable Unavailable Vaneenenaam, Nathalia Schulte MD Unavailable Unavailable Vaneenenaam, Nathalia Schulte MD Unavailable Unavailable Vaneenenaam, Nathalia Schulte MD Unavailable Unavailable Vaneenenaam, Nathalia Schulte MD Unavailable Unavailable Vaneenenaam, Nathalia Schulte MD Unavailable Unavailable Vaneenenaam, Nathalia Schulte MD Unavailable Unavailable Radhika, R Anupa MD Unavailable Unavailable Radhika, R Anupa MD Unavailable Unavailable Radhika, R Anupa MD Unavailable Unavailable Radhika, R Anupa MD Unavailable Unavailable Radhika, R Anupa MD Unavailable Unavailable Radhika, R Anupa MD Unavailable Unavailable Radhika, R Anupa MD Unavailable Unavailable Radhika, R Anupa MD Unavailable Unavailable Radhika, R Anupa MD Unavailable Unavailable Radhika, R Anupa MD Unavailable Unavailable Radhika, R Anupa MD Unavailable Unavailable Radhika, R Anupa MD Unavailable Unavailable Re-disclosure Warning The records that [...] is protected by Article 27-F of the [facility] Public Health law. If you continue you may have access to information: Regarding HIV / AIDS; Provided by facilities licensed or operated by the [facility] Office of Mental Health; or Provided by the [facility] Office for People With Developmental Disabilities. If such information is present, then the following [facility] mandated warning applies: This information has [...] may result in a fine or senior care sentence or both. A general authorization for the release of medical or other information is NOT sufficient authorization for further disc losure. Allergies and Adverse Reactions Type Description Substance Reaction Status Data Source(s ) Propensity to adverse reactions LURASIDONE LURASIDONE [facility] Propensity to adverse reactions HALOPERIDOL HALOPERIDOL [facility] Propensity to adverse reactions FELBAMATE FELBAMATE [facility] Propensity to adverse reactions ASENAPINE ASENAPINE [facility] Propensity to adverse reactions ADHESIVE TAPE ADHESIVE TAPE [facility] Family History Family Member Name Family Member Gender Family Member Status Date o f Status Description Data Source(s) Unknown Unknown Problem [facility] ([facility] Unknown Female Problem [facility] ([facility]) Encounters Encounter Providers Location Date Indications Data Source(s ) Outpatient Attender: Alisson Aguilar [place] [facility] 09:30:00 AM EST MEDENT (Tj Oshea MD) Outpatient Attender: Omayra HILLS Main office [facility] 01/18/2021 08:15:00 AM EDT MED[facility] ([facility]) Outpatient Attender: CARLITOS BONDS [place] [facility] 01/11/2021 02:00:00 PM EDT MEDENT (Tj Oshea MD) Inpatient Attender: Contreras Peñaloza nder: Colin Garrido MDAttender: VIVIANA RUBIN MDAttender: Ceasar PaniaguaAdmitter: VIVIANA RUBIN MDReferrer: VIVIANA RUBIN MD [id number] 12/28/2020 12:00:00 AM EDT - 01/03/2021 04:30:00 PM [facility] Patient discharged. Outpatient Attender: Omayra HILLS Main office - [facility] 12/19/2020 11:15:00 AM EDT MED[facility] ([facility]) Office Visit Attender: CARLITOS HILLS [facility] 12/06/2020 10:00:00 AM EDT MEDENT (Tj Oshea MD) Outpatient Attender: Mily Skelton/Gómez/Hadley/Reindl 11/14/2020 11:00:00 AM EDT MED[facility] ([facility]) Outpatient Attender: Omayra HILLS Main office - [facility] 09/14/2020 01:45:00 PM EDT MEDENT ([facility], ) Outpatient Attender: CARLITOS HILLS [facility] 08/09/2020 10:00:00 AM EDT MED[facility] (Tj Oshea MD) [place] [address] [facility] [address] 08/09/2020 12:00:00 AM EDT eCW1 ([facility]) [place] [address] [facility] [address] 07/05/2020 12:00:00 AM EST eCW1 ([facility]) Outpatient Attender: CARLITOS HILLS [facility] 06/21/2020 11:30:00 AM EST [facility] (Tj Oshea MD) [place] [address] [facility] [address] 06/01/2020 12:00:00 AM EST eCW1 ([facility]) Outpatient Attender: CARLITOS HILLS [facility] 05/11/2020 10:00:00 AM EST MEDENT (Tj Oshea MD) Office Visit Attender: Omayra HILLS Main office - [facility] 05/08/2020 07:45:00 AM EST MEDENT ([facility] ) Office Visit Attender: Omayra HILLS [facility] office - [facility] 04/27/2020 10:30:00 AM EST [facility] ([facility]) [place] [address] [facility] [address] 03/10/2020 12:00:00 AM EST [facility] [place] [address] [facility] [address] 03/08/2020 12:00:00 AM EST eCW1 ([facility]) Outpatient Attender: CARLITOS HILLS Medical [facility] 03/07/2020 09:00:00 AM EST [facility] (Tj Oshea MD) [place] [address] [facility] [address] 02/18/2020 12:00:00 AM EDT eCW1 ([facility]) Outpatient Attender: Nathalia Pool MD Physical Therap y 02/17/2020 01:00:00 PM EDT [facility] ([facility]) [place] [address] [facility] [address] 02/16/2020 12:00:00 AM EDT eCW1 ([facility]) Unknown [address] [facility] [address] 02/16/2020 12:00:00 AM EDT eCW1 ([facility]) Unknown [address] [facility] [address] 02/15/2020 12:00:00 AM EDT eCW1 ([facility]) Outpatient [address] [facility] [address] 02/02/2020 12:00:00 AM EDT eCW1 ([facility]) Immunizations Vaccine Date Status Description Data Source(s) DIPHTHERIA,PERTUSSIS(ACELLULAR),TETANUS VACCINE 07/31/2020 1 2:00:00 AM EDT completed [facility] COVID-19 VACCINE Moderna 07/13/2020 12:00:00 AM EDT completed [facility] Vaccine Series Complete: YESThis Data wa s Submitted to [facility] Via [employer]. COVID-19 dose #2 given elsewhere Unspecified 07/08/2020 02:3 1:00 PM EST completed eCW1 ([facility]) COVID-19 dose #2 given elsewhere Unspecified 07/08/2020 02:3 1:00 PM EST completed eCW1 ([facility]) COVID-19 dose #1 given elsewhere Unspecified 06/15/2020 02:3 0:00 PM EST completed eCW1 ([facility]) COVID-19 dose #1 given elsewhere Unspecified 06/15/2020 02:3 0:00 PM EST completed eCW1 ([facility]) COVID-19 VACCINE Moderna 06/15/2020 12:00:00 AM EST completed [facility] Vaccine Series Complete: NOThis Data was Submitted to [facility] Via [employer]. Medications Medication Brand Name Start Date Product Form Dose Route Admi nistrative Instructions Pharmacy Instructions Status Indications Reaction Description Data Source(s) lamotrigine 200 MG Oral Tablet Lamotrigine 03/08/2021 12:00:00 AM EST active [facility] (Tj Oshea MD) Sodium Phosphate, Dibasic 35.5 MG/ML / S odium Phosphate, Monobasic 96.4 MG/ML Enema Fleet Enema 03/08/2021 12:00:00 AM EST activ e MEDENT (Tj Oshea MD) Hydroxyzine Hydrochloride 50 MG Oral Tablet Hydroxyzine HCL 03/08/2021 12:00:00 AM EST ORAL active MED[facility] (Verónica Oshea MD) clobazam 10 MG Oral Tablet Clobazam 03/08/2021 12:00:00 AM EST ORAL active [facility] (Tj Oshea MD) Levetiracetam 500 MG Oral Tablet Levetiracetam 03/08/2021 12:00:00 AM EST ORAL active MED[facility] (Verónica Oshea MD) Lactulose 667 MG/ML Oral Solution Lactulose 03/08/2021 12:00:00 AM EST ORAL active [facility] (Tj Oshea MD) Calamine 30 MG/ML / Pramoxine hydrochloride 10 MG/ML T opical Lotion Aveeno Anti-Itch 03/08/2021 12:00:00 AM EST active [facility] (Tj Oshea MD) Dulcolax Suppositories 03/08/2021 12:00:00 AM EST active [facility] (Tj Oshea MD) Magnesium Hydroxide 80 MG/ML Oral Suspension Milk Of Magnesi a 03/08/2021 12:00:00 AM EST ORAL active M EDENT (Tj Oshea MD) Clorazepate Dipotassium 3.75 MG Oral Tablet Clorazepate Dipo tassium 02/23/2021 12:00:00 AM EDT ORAL completed [facility] (Tj Oshea MD) linaclotide 0.29 MG Oral Capsule [Linzess] Linzess 02/23/2021 12:00:00 AM EDT ORAL active [facility] (Tj Oshea MD) Simvastatin 20 MG Oral Tablet Simvastatin 02/23/2021 12:00:00 AM EDT ORAL active [facility] (Tj Oshea MD) sennosides, LONGTERM 8.6 MG Oral Tablet Senna 02/23/2021 12:00:00 AM EDT ORAL active [facility] (Tj Oshea MD) Calcium Carbonate 1250 MG / Cholecalciferol 200 UNT Or al Tablet Oyster Shell Calcium W/D 02/23/2021 12:00:00 AM EDT ORAL active [facility] (Tj Oshea MD) Cholecalciferol 57297 UNT Oral Tablet Vitamin D3 Ultra Poten cy 02/23/2021 12:00:00 AM EDT ORAL active M EDENT (Tj Oshea MD) Phenytoin sodium 100 MG Extended Release Oral Capsule [Isak tin] Dilantin 02/23/2021 12:00:00 AM EDT active [facility] (Tj Oshea MD) Levetiracetam 1000 MG Oral Tablet Levetiracetam 02/23/2021 12:00:00 A M EDT ORAL completed [facility] (Verónica Oshea MD) Aveeno Anti Itch 1-3%External Lotion 02/23/2021 12:00:00 AM EDT active [facility] (Tj Oshea MD) Clonazepam 0.25 MG Tablet Disintegrating 02/23/2021 12:00:00 AM EDT ORAL completed [facility] (Tj Oshea MD) Prazosin 1 MG Oral Capsule Prazosin HCL 02/23/2021 12:00:00 AM EDT ORAL active [facility] (Tj Oshea MD) Mupirocin 20 MG/ML Topical Cream Mupirocin Calcium 02/23/2021 12:00 :00 AM EDT completed [facility] (Tj Oshea MD) Flonase Allergy Relief Flonase Allergy Relief 02/23/2021 12:00:00 AM E DT active [facility] (Tj Oshea MD) Lamotrigine 200MG 02/23/2021 12:00:00 AM EDT ORAL completed [facility] (Tj Oshea MD) POLYETHYLENE GLYCOL 3350 142 MG/ML Oral Solution [Miralax] M iralax 02/23/2021 12:00:00 AM EDT active M EDENT (Tj Oshea MD) Novofine Plus Pen Needle 32G X 4mm 02/23/2021 12:00:00 AM EDT active [facility] (Tj Oshea MD) Levofloxacin 750 MG Oral Tablet levoFLOXacin 750 MG Or al Tablet (LEVAQUIN) levoFLOXacin 750 MG Oral Tablet (LEVAQUIN) 01/04/2021 12:00:00 AM EDT 750 mg Oral aborted Take 1 tablet by jeannie th daily for 1 dose [facility] Levofloxacin 750 MG Oral Tablet levoFLOXacin 750 MG Or al Tablet (LEVAQUIN) levoFLOXacin 750 MG Oral Tablet (LEVAQUIN) 01/04/2021 12:00:00 AM EDT 750 mg Oral active Take 1 tablet by jeannie th daily for 1 dose [facility] Levofloxacin 750 MG Oral Tablet levoFLOXacin 750 MG Or al Tablet (LEVAQUIN) levoFLOXacin 750 MG Oral Tablet (LEVAQUIN) 01/03/2021 12:00:00 AM EDT 750 mg Oral aborted Take 1 tablet by jeannie th daily for 3 days [facility] clobazam 10 MG Oral Tablet cloBAZam 10 MG Oral Tablet (ONFI) cloBAZam 10 MG Oral Tablet (ONFI) 01/03/2021 12:00:00 AM EDT 5 mg Oral act jose Take 0.5 tablets by mouth Two Times Daily , Max Daily Dose: 10 mg [facility] clobazam 10 MG Oral Tablet cloBAZam 10 MG Oral Tablet (ONFI) cloBAZam 10 MG Oral Tablet (ONFI) 01/02/2021 12:00:00 AM EDT 5 mg Oral abo rted Take 0.5 tablets by mouth Two Times Daily , Max Daily Dose: 10 mg [facility] Lactulose 667 MG/ML Oral Solution lactulose (CHRONULAC ) solution 20 mL lactulose (CHRONULAC) solution 20 mL 01/01/2021 05:30:00 PM EDT 20 mL Oral active 20 mL, Oral, 2 Times Daily, First dose (after last modification) on 01/01/21 at 1730, For 30 days [facility] Medication administered onsite Levetiracetam 750 MG Oral Tablet levETIRAcetam (KEPPRA ) tablet 1,500 mg levETIRAcetam (KEPPRA) tablet 1,500 mg 12/31/2020 09:00:00 PM EDT 1500 mg Oral active 1,500 mg, Oral , 2 Times Daily, First dose on 12/31/20 at 2100, For 30 days [facility] Medication administered onsite Phenobarbital 32 MG Oral Tablet PHENobarbital (LUMINAL ) tablet 64.8 mg PHENobarbital (LUMINAL) tablet 64.8 mg 12/31/2020 09:00:00 PM EDT 64.8 mg Oral active 64.8 mg, Oral, 2 Times Daily, First dose on 12/31/20 at 2100, For 30 days [facility] Medication administered onsite levoFLOXacin (LEVAQUIN) tablet 750 mg 12/31/2020 12:15:00 PM EDT 750 mg Oral active 750 mg, Oral, Daily Standard, First dose (after last modification) on 12/31/20 at 1215, For 5 days
Administer 2 hours before or 4 hours after oral magnesium, calcium, iron, and sucralfate.
Discouraged Uses: Treatment of UTI
[facility] Medication administered onsite Phenytoin sodium 100 MG Extended Release Oral Capsule phenytoin (DILANTIN) ER capsule 100 mg phenytoin (DILANTIN) ER capsule 100 mg 12/31/2020 12:1 5:00 PM EDT 100 mg Oral active 100 mg, Oral, 2 Times Daily, First dose on 12/31/20 at 1215, For 30 days
Hold enteral nutrition at least 1 hour before and 2 hours after dose. Monitor drug levels.
[facility] Medication administered onsite Hydroxyzine Hydrochloride 25 MG Oral Tablet hydrOXYzin e (ATARAX) tablet 25 mg hydrOXYzine (ATARAX) tablet 25 mg 12/31/2020 12:14:23 PM EDT 25 mg Oral active 25 mg, Oral, Every 6 hours PRN, Itching, Anxiety, Starting on 12/31/20 at 1214, For 6 doses [facility] Medication administered onsite lamotrigine 100 MG Oral Tablet lamoTRIgine (LaMICtal) tablet 200 mg lamoTRIgine (LaMICtal) tablet 200 mg 12/31/2020 09:00:00 AM EDT 200 mg Oral active 200 mg, Oral, Daily Standard, First dose on Sun 1 at 0900, For 30 days [facility] Medication administered onsite paroxetine (PAXIL) tablet 40 mg [id number] 12/31/2020 09:00:00 AM E DT 40 mg Oral active 40 mg, Oral, D aily Standard, First dose on 12/31/20 at 0900, For 30 days [facility] Medication administered onsite paroxetine (PAXIL) tablet 20 mg [id number] 12/31/2020 09:00:00 AM E DT 20 mg Oral active 20 mg, Oral, D aily Standard, First dose on 12/31/20 at 0900, For 30 days
Take along with 40mg Paroxetine
[facility] Medication administered onsite lamotrigine 100 MG Oral Tablet lamoTRIgine (LaMICtal) tablet 400 mg lamoTRIgine (LaMICtal) tablet 400 mg 12/30/2020 10:00:00 PM EDT 400 mg Oral active 400 mg, Oral, Nightly, First dose on 12/30/20 at 220 0, For 30 days [facility] Medication administered onsite Trazodone Hydrochloride 100 MG Oral Tablet trazodone ( DESYREL) tablet 200 mg trazodone (DESYREL) tablet 200 mg 12/30/2020 10:00:00 PM EDT 200 mg Oral active 200 mg, Oral, Nightly, First dos e on 12/30/20 at 2200, For 30 days [facility] Medication administered onsite clobazam 10 MG Oral Tablet cloBAZam (ONFI) tablet 5 mg cloBAZam (ONFI) tablet 5 mg 12/30/2020 09:00:00 PM EDT 5 mg Oral active 5 mg, Oral, 2 Times Daily, First dose on 12/30/20 at 2100, For 30 days [facility] Medication administered onsite QUEtiapine (SEROquel) tablet 300 mg 12/30/2020 09:00:00 PM E DT 300 mg Oral active 300 mg, Oral, 2 Times Daily, First dose on 12/30/20 at 2100, For 30 days [facility] Medication administered onsite phenytoin (DILANTIN) injection 100 mg [id number] 12/30/2020 09:00 :00 PM EDT 100 mg Intravenous aborted 100 mg, Intravenous, Every 12 hours, First dose (after last modification) on 12/30/20 at 2100, For 57 doses
Administer infusion using a 0.22 micron filter.
[facility] Medication administered onsite olanzapine 5 MG/ML Injectable Solution OLANZapine (ZYP REXA) injection 5 mg OLANZapine (ZYPREXA) injection 5 mg 12/30/2020 05:45:00 PM EDT 5 mg Intramuscular completed 5 mg, Intra muscular, Once, On 12/30/20 at 1745, For 1 dose
Reconstitute 10 mg vial with 2.1 mL SWFI; resulting solution is ~5 mg/mL; Use within 1 hour following reconstitution.
[facility] Medication administered onsite azithromycin in NaCl 0.9 % 250 mL infusion 500 mg 12/30/2020 12:00:00 AM EDT 500 mg Intravenous aborted 500 mg, Intr avenous, at 250 mL/hr, Every 24 hours, First dose on 12/30/20 at 0000, For 4 days [facility] Medication administered onsite Ceftriaxone 1000 MG Injection cefTRIAXone (ROCEPHIN) i nfusion 1 g (premix) cefTRIAXone (ROCEPHIN) infusion 1 g (premix) 12/30/2020 12:00:00 AM EDT 1 g Intravenous aborted 1 g, Intraven ous, at 100 mL/hr, Every 24 hours, First dose on Sat /4/21 at 0000, For 4 days
Discouraged Uses: Empiric treatment of post-surgical meningitis (ceftazidime preferred)
[facility] Medication administered onsite NaCl infusion 0.9 % [id number] 12/29/2020 03:45:00 PM EDT Intravenous aborted at 75 mL/hr, Intrave nous, Continuous, Starting on Fri12/29/20 at 1545, For 30 days [facility] Medication administered onsite phenytoin (DILANTIN) injection 150 mg [id number] 12/29/2020 09:00 :00 AM EDT 150 mg Intravenous aborted 150 mg, Intravenous, Every 12 hours, First dose on Fri12/29/20 at 0900, For 30 days
Administer infusion using a 0.22 micron filter.
[facility] Medication administered onsite Phenobarbital 130 MG/ML Injectable Solut ion PHENobarbital (LUMINAL) injection 60 mg PHENobarbital (LUMINAL) injection 60 mg 12/29/2020 09:00:00 AM EDT 60 mg Intravenous aborted 60 mg, Intrav enous, 2 Times Daily, First dose on Fri12/29/20 at 0900, For 30 days [facility] Medication administered onsite 0.4 ML Enoxaparin sodium 100 MG/ML Prefi lled Syringe enoxaparin sodium (LOVENOX) injection 40 mg enoxaparin sodium (LOVENOX) injection 40 mg 12/29/2020 09:00:00 AM EDT 40 mg Subcutaneous active 40 mg, Subcutaneous, Daily Standard, First dose on Fri12/29/20 at 0900, For 30 days
Non Patients: body weight < 150 kg, CrCl > 30 mL/min. Guidelines for Lovenox: MUST wait 24 hours before starting Enoxaparin if patient has epidural catheter. D/C Enoxaparin 10-12 hours prior to removing epidural catheter. May restart Enoxaparin 24 hours after epidural catheter has been removed.
[facility] Medication administered onsite Levetiracetam 15 MG/ML Injectable Soluti on levETIRAcetam (KEPPRA) 1,500 mg in sodium chloride 100 mL (15 mg/mL) infusion (premix) levETIRAcetam (KEPPRA) 1,500 mg in sodium chloride 100 mL (15 mg/mL) infusion (premix) 12/29/2020 09:00:00 AM EDT 1500 mg Intravenous aborted 1,50 0 mg, Intravenous, at 400 mL/hr, Every 12 hours, First dose (after last modification) on Fri12/29/20 at 0900, For 30 days [facility] Medication administered onsite Valproic Acid 100 MG/ML Injectable Solut ion valproate sodium (DEPACON) injection 500 mg valproate sodium (DEPACON) injection 500 mg 12/29/2020 08:00 :00 AM EDT 500 mg Intravenous aborted 500 mg, Intr avenous, Every 8 hours, First dose on Fri12/29/20 at 0800, For 30 days
Administer at a rate of 1 g over 60 minutes
[facility] Medication administered onsite Valproic Acid 100 MG/ML Injectable Solut ion valproate sodium (DEPACON) injection 500 mg valproate sodium (DEPACON) injection 500 mg 12/29/2020 04:00 :00 AM EDT 500 mg Intravenous completed 500 mg, In travenous, at 40 mL/hr, Once, On Fri12/29/20 at 0400, For 1 dose
Administer at a rate of 1 g over 15 minutes. Suggested dilution 50 mL NS
[facility] Medication administered onsite 1 ML Lorazepam 2 MG/ML Injection LORazepam (ATIVAN) in jection 2 mg LORazepam (ATIVAN) injection 2 mg 12/29/2020 04:00:00 AM EDT 2 mg Intraveno us completed 2 mg, Intravenous, Once, On Fri12/29/20 at 0400, For 1 dose [facility] Medication administered onsite Valproic Acid 100 MG/ML Injectable Solut ion valproate sodium (DEPACON) injection 500 mg valproate sodium (DEPACON) injection 500 mg 12/28/2020 11:45 :00 PM EDT 500 mg Intravenous completed 500 mg, In travenous, Once, On Doreen 12/28/20 at 2345, For 1 dose
Administer at a rate of 1 g over 15 minutes. Suggested dilution 50 mL NS
[facility] Medication administered onsite Ceftriaxone 1000 MG Injection cefTRIAXone (ROCEPHIN) i nfusion 1 g (premix) cefTRIAXone (ROCEPHIN) infusion 1 g (premix) 12/28/2020 11:30:00 PM EDT 1 g Intravenous completed 1 g, Intraven ous, at 100 mL/hr, Once, On Doreen 12/28/20 at 2330, For 1 dose
Discouraged Uses: Empiric treatment of post- surgical meningitis (ceftazidime preferred)
[facility] Medication administered onsite azithromycin in NaCl 0.9 % 250 mL infusion 500 mg 12/28/2020 11:30:00 PM EDT 500 mg Intravenous completed 500 mg, In travenous, at 250 mL/hr, Once, On Doreen 12/28/20 at 2330, For 1 dose [facility] Medication administered onsite Levetiracetam 15 MG/ML Injectable Soluti on levETIRAcetam (KEPPRA) 1,500 mg in sodium chloride 100 mL (15 mg/mL) infusion (premix) levETIRAcetam (KEPPRA) 1,500 mg in sodium chloride 100 mL (15 mg/mL) infusion (premix) 12/28/2020 09:30:00 PM EDT 1500 mg Intravenous completed 1, 500 mg, Intravenous, at 400 mL/hr, Once, On Doreen 12/28/20 at 2130, For 1 dose [facility] Medication administered onsite Phenobarbital 130 MG/ML Injectable Solut ion PHENobarbital (LUMINAL) injection 58 mg PHENobarbital (LUMINAL) injection 58 mg 12/28/2020 09:30:00 PM EDT 58 mg Intravenous completed 58 mg, Intrav enous, Once, On Doreen 12/28/20 at 2130, For 1 dose [facility] Medication administered onsite fosphenytoin (CEREBYX) [place] [id number] 12/28/2020 09:30:00 PM EDT 100 mg{phenytoin'equivalent} Intravenous complet ed 100 mg PE, Intravenous, Once, On Doreen 12/28/20 at 2130, For 1 dose [facility] Medication administered onsite Gentamicin Sulfate (LONGTERM) 0.001 MG/MG Topical Ointment Gentamicin Sulfate 0.1 % Gentamicin Sulfate 0.1 % 02/18/2020 12:00:00 AM EDT suspended Gentamicin Sulfate 0.1 % eCW1 ([facility]) Gentamicin Sulfate (LONGTERM) 0.001 MG/MG Topical Ointment Gentamicin Sulfate 0.1 % Gentamicin Sulfate 0.1 % 02/18/2020 12:00:00 AM EDT suspended Gentamicin Sulfate 0.1 % eCW1 ([facility]) Gentamicin Sulfate (LONGTERM) 0.001 MG/MG Topical Ointment Gentamicin Sulfate 0.1 % Gentamicin Sulfate 0.1 % 02/18/2020 12:00:00 AM EDT suspended Gentamicin Sulfate 0.1 % eCW1 ([facility]) Gentamicin Sulfate (LONGTERM) 0.001 MG/MG Topical Ointment Gentamicin Sulfate 0.1 % Gentamicin Sulfate 0.1 % 02/18/2020 12:00:00 AM EDT suspended Gentamicin Sulfate 0.1 % eCW1 ([facility]) Gentamicin Sulfate (LONGTERM) 0.001 MG/MG Topical Ointment Gentamicin Sulfate 0.1 % Gentamicin Sulfate 0.1 % 02/18/2020 12:00:00 AM EDT active Gentamicin Sulfate 0.1 % eCW1 ([facility]) Gentamicin Sulfate (LONGTERM) 0.001 MG/MG Topical Ointment Gentamicin Sulfate 0.1 % Gentamicin Sulfate 0.1 % 02/18/2020 12:00:00 AM EDT active Gentamicin Sulfate 0.1 % eCW1 ([facility]) Gentamicin Sulfate (LONGTERM) 0.001 MG/MG Topical Ointment Gentamicin Sulfate 0.1 % Gentamicin Sulfate 0.1 % 02/18/2020 12:00:00 AM EDT suspended Gentamicin Sulfate 0.1 % eCW1 ([facility]) doxycycline hyclate 100 MG Oral Capsule Doxycycline Hy clate 100 MG Doxycycline Hyclate 100 MG 02/16/2020 12:00:00 AM EDT 1.0 {capsule} suspended Doxycycline Hyclate 100 MG eCW1 ([facility]) doxycycline hyclate 100 MG Oral Capsule Doxycycline Hy clate 100 MG Doxycycline Hyclate 100 MG 02/16/2020 12:00:00 AM EDT 1.0 {capsule} active Doxycycline Hyclate 100 MG eCW1 ([facility]) doxycycline hyclate 100 MG Oral Capsule Doxycycline Hy clate 100 MG Doxycycline Hyclate 100 MG 02/16/2020 12:00:00 AM EDT 1.0 {capsule} suspended Doxycycline Hyclate 100 MG eCW1 ([facility]) doxycycline hyclate 100 MG Oral Capsule Doxycycline Hy clate 100 MG Doxycycline Hyclate 100 MG 02/16/2020 12:00:00 AM EDT 1.0 {capsule} suspended Doxycycline Hyclate 100 MG eCW1 ([facility]) doxycycline hyclate 100 MG Oral Capsule Doxycycline Hy clate 100 MG Doxycycline Hyclate 100 MG 02/16/2020 12:00:00 AM EDT 1.0 {capsule} active Doxycycline Hyclate 100 MG eCW1 ([facility]) doxycycline hyclate 100 MG Oral Capsule Doxycycline Hy clate 100 MG Doxycycline Hyclate 100 MG 02/16/2020 12:00:00 AM EDT 1.0 {capsule} suspended Doxycycline Hyclate 100 MG eCW1 ([facility]) doxycycline hyclate 100 MG Oral Capsule Doxycycline Hy clate 100 MG Doxycycline Hyclate 100 MG 02/16/2020 12:00:00 AM EDT 1.0 {capsule} suspended Doxycycline Hyclate 100 MG eCW1 ([facility]) doxycycline hyclate 100 MG Oral Capsule Doxycycline Hy clate 100 MG Doxycycline Hyclate 100 MG 02/16/2020 12:00:00 AM EDT 1.0 {capsule} active Doxycycline Hyclate 100 MG eCW1 ([facility]) Triamcinolone Acetonide 1 MG/ML Topical Cream Triamcin olone Acetonide 0.1 % Triamcinolone Acetonide 0.1 % 02/02/2020 12:00:00 AM EDT 1.0 {appli cation} active Triamcinolone Acetonide 0 .1 % eCW1 ([facility]) Triamcinolone Acetonide 1 MG/ML Topical Cream Triamcin olone Acetonide 0.1 % Triamcinolone Acetonide 0.1 % 02/02/2020 12:00:00 AM EDT 1.0 {appli cation} active Triamcinolone Acetonide 0 .1 % eCW1 ([facility]) Triamcinolone Acetonide 1 MG/ML Topical Cream Triamcin olone Acetonide 0.1 % Triamcinolone Acetonide 0.1 % 02/02/2020 12:00:00 AM EDT 1.0 {appli cation} active Triamcinolone Acetonide 0 .1 % eCW1 ([facility]) Triamcinolone Acetonide 1 MG/ML Topical Cream Triamcin olone Acetonide 0.1 % Triamcinolone Acetonide 0.1 % 02/02/2020 12:00:00 AM EDT 1.0 {appli cation} active Triamcinolone Acetonide 0 .1 % eCW1 ([facility]) Triamcinolone Acetonide 1 MG/ML Topical Cream Triamcin olone Acetonide 0.1 % Triamcinolone Acetonide 0.1 % 02/02/2020 12:00:00 AM EDT 1.0 {appli cation} active Triamcinolone Acetonide 0 .1 % eCW1 ([facility]) Triamcinolone Acetonide 1 MG/ML Topical Cream Triamcin olone Acetonide 0.1 % Triamcinolone Acetonide 0.1 % 02/02/2020 12:00:00 AM EDT 1.0 {appli cation} active Triamcinolone Acetonide 0 .1 % eCW1 ([facility]) Triamcinolone Acetonide 1 MG/ML Topical Cream Triamcin olone Acetonide 0.1 % Triamcinolone Acetonide 0.1 % 02/02/2020 12:00:00 AM EDT 1.0 {appli cation} active Triamcinolone Acetonide 0 .1 % eCW1 ([facility]) Triamcinolone Acetonide 1 MG/ML Topical Cream Triamcin olone Acetonide 0.1 % Triamcinolone Acetonide 0.1 % 02/02/2020 12:00:00 AM EDT 1.0 {appli cation} active Triamcinolone Acetonide 0 .1 % eCW1 ([facility]) Triamcinolone Acetonide 1 MG/ML Topical Cream Triamcin olone Acetonide 0.1 % Triamcinolone Acetonide 0.1 % 02/02/2020 12:00:00 AM EDT 1.0 {appli cation} active Triamcinolone Acetonide 0 .1 % eCW1 ([facility]) Triamcinolone Acetonide 1 MG/ML Topical Cream Triamcin olone Acetonide 0.1 % Triamcinolone Acetonide 0.1 % 02/02/2020 12:00:00 AM EDT 1.0 {appli cation} active Triamcinolone Acetonide 0 .1 % eCW1 ([facility]) Phenytoin sodium 100 MG Extended Release Oral Capsule Phenytoin Sodium Extended 100 MG Oral Capsule (DILANTIN) Phenytoin Sodium Extended 100 MG Oral Ca psule (DILANTIN) 100 mg Oral aborted Take 100 mg by mouth as needed [facility] Insurance Providers Payer name Policy type / Coverage type Policy ID Covered democrat ID Covered democrat's relationship to baer Policy Baer Plan Information Medicare Natl Gov't Servi Medicare Primary [id number] Self [id number] [place] [id number] Self 0 [id number] [place] Primary [id number] Self 0 [id number] MEDICARE [id number] SP [id number] [place] Primary [id number] Self 0 [id number] [place] Primary [id number] Self MEDICARE A [id number] Self [id number] Medicare Natl Gov't Servi Medicare Primary [id number] Self Medicare Natl Gov't Servi Medicare Primary [id number] Self 0 [id number] Medicare Natl Gov't Servi Medicare Primary [id number] Self 0 [id number] EMED[place] [id number] SP [id number] MEDICAID [id number] SP [id number] [place] Med[place] Part [place] [id number] [id number] Self [id number] [place] B [id number] Self MEDICA[place] [id number] SP [id number] MEDICAID [id number] SP [id number] MEDICAID [id number] SP [id number] MEDICAID M [id number] Self [id number] [place] [id number] Self [id number] MEDICARE [id number] SP [id number] A Medicare Part B Medicare Primary [id number] Self 0 [id number] Medicare Part B Medicare Primary [id number] Self 0 [id number] [place] [id number] .5374.0 Self [id number] Medicare Part B Medicare Primary [id number] Self 0 [id number] Medicare Part B Medicare Primary [id number] Self 0 [id number] Medicare Part B Medicare Primary [id number] Self 0 [id number] Medicare Part B Medicare Primary [id number] Self 0 [id number] Medicare Part B Medicare Primary [id number] Self 0 [id number] Medicare Part B Medicare Primary [id number] Self 0 [id number] Medicare Part B Medicare Primary [id number] Self 0 [id number] Medicare Part B Medicare Primary [id number] [id number] Self 0 [id number] Medicare Part B Medicare Primary [id number] Self 0 [id number] Medicare Part B Medicare Primary [id number] Self 0 [id number] Medicare Part B Medicare Primary [id number] 2.16.840.1.542273.3.227.99.1037.4661.0 Self 0 [id number] Medicare Part B Medicare Primary [id number] 2.16.840.1.725587.3.227.99.1037.4661.0 Self 0 [id number] Medicare Part B Medicare Primary [id number] [id number]037.4661.0 Self 0 [id number] Medicare Part B Medicare Primary [id number] 2.16.840.1.269093.3.227.99.1037.4661.0 Self 0 [id number] Medicare Part B Medicare Primary [id number] 2.16.840.1.936194.3.227.99.1037.4661.0 Self 0 [id number] Medicare Dme Supplies Medigap Part B [id number] [id number] Self 0 [id number] Medicare Dme Supplies Medigap Part B [id number] Self 0 [id number] Medicare Dme Supplies Medigap Part B [id number] Self 0 [id number] Medicare Part B Medicare Primary [id number]037.4661.0 Self 0 [id number] Medicare Dme Supplies Medigap Part B [id number] Self Medicaid Medigap Part B [id number] Self Medicare Part B Medicare Primary [id number] Self [place]ig[place] Part B [id number] Self Medicaid Medicaid [id number] Self Medicare Medicare Primary [id number] Self [id number] [place] [id number] SP [id number] B [id number] A MEDICARE [id number] SP [id number] [place] [id number] SP [id number] MEDICARE C [id number] S [id number] MEDICAID M [id number] S [id number] MEDICAID [id number] SP [id number] [place] [id number] Self [id number] [place] [id number] Self [id number] Medicare - [place] Medicare Primary [id number] Self [id number] Medicare Part B Medicare Primary [id number] Self [id number] Medicaid Medigap Part B [id number] Self [id number] ANSI-Medicaid [id number] ANSI-Medicare Part B [id number] [facility]-Medicaid [id number] ANSI-Medicare Part B [id number] MEDICARE [id number] SP [id number] 7C1 MEDICARE C [id number] S [id number] 7C1 Medicaid [facility] Part B [id number] 5510.0 Self [id number] Medicare - [place] Medicare Primary [id number] Self 09 [id number] Medicare Part B Medicare Primary [id number] Self 0 [id number] [employer] [place] [id number] Problems, Conditions, and Diagnoses No Information Surgeries/Procedures Procedure Description Date Indications Data Source(s) OFFICE OUTPATIENT VISIT 15 MINUTES 03/08/2021 12:00:00 AM EST [facility] (Tj Oshea MD) OFFICE OUTPATIENT VISIT 25 MINUTES 03/08/2021 12:00:00 AM EST [facility] (Tj Oshea MD) OFFICE OUTPATIENT VISIT 25 MINUTES 01/18/2021 12:00:00 AM EDT [facility] ([facility]) OFFICE OUTPATIENT VISIT 15 MINUTES 01/11/2021 12:00:00 AM EDT [facility] (Tj Oshea MD) COVID-19 PCR <td>COVID-19 PCR</td><td>Rou elmo</td><td>01/03/2021 11:39 AM EDT</td><td></td><td> </td> 01/03/2021 11:39:00 AM [facility] RADIOLOGY REPORT <td>RADIOLOGY REPORT</td><td ></td><td>01/02/2021 9:27 PM EDT</td><td></td><td></td> 01/02/2021 09:27:59 PM EDT [facility] EEG ROUTINE STUDY <td>EEG ROUTINE STUDY</td><t d>Routine</td><td>01/02/2021 4:26 PM EDT</td><td></td><td> </td> 01/02/2021 04:26:51 PM [facility] AMMONIA <td>AMMONIA LEVEL</td><td>ST AT</td><td>01/02/2021 10:06 AM EDT</td><td></td><td> </td> 01/02/2021 10:06:00 AM [facility] AMMONIA <td>AMMONIA LEVEL</td><td>Ro utine</td><td>01/01/2021 1:36 PM EDT</td><td></td><td> </td> 01/01/2021 01:36:00 PM [facility] BLOOD COUNT COMPLETE AUTOMATED <td>CBC</td><td>STAT</t d><td>12/31/2020 11:09 AM EDT</td><td></td><td> </td> 12/31/2020 11:09:00 AM [facility] BASIC METABOLIC PANEL CALCIUM TOTAL <td>BASIC METABOLI C PANEL</td><td>STAT</td><td>12/31/2020 11:09 AM EDT</td><td></td><td> </td> 12/31/2020 11:09:00 AM [facility] XR CHEST FRONTAL ONLY 08933 <td>XR CHEST FRONTAL ONLY 22411</td><td>Routine</td><td>12/31/2020 5:26 AM EDT</td><td></td><td> </td> 12/31/2020 05:26:00 AM [facility] EEG VIDEO MONITORING <td>EEG VIDEO MONITORING</td ><td>Routine</td><td>12/30/2020 9:46 PM EDT</td><td></td><td> </td> 12/30/2020 09:46:41 PM [facility] LAB RESULTS (OUTSIDE/HISTORICAL) <td>LAB RESULTS (OUTSIDE/HISTORICAL)</td><td></td><td>12/29/2020 7:30 PM EDT</td><td></td><td></td> 12/29/2020 07:30:07 PM EDT [facility] RADIOLOGY REPORT <td>RADIOLOGY REPORT</td><td ></td><td>12/29/2020 7:30 PM EDT</td><td></td><td></td> 12/29/2020 07:30:07 PM EDT [facility] CARDIAC REPORT <td>CARDIAC REPORT</td><td>< /td><td>12/29/2020 7:30 PM EDT</td><td></td><td></td> 12/29/2020 07:30:07 PM EDT [facility] EEG ROUTINE STUDY <td>EEG ROUTINE STUDY</td><t d>Routine</td><td>12/29/2020 11:36 AM EDT</td><td></td><td> </td> 12/29/2020 11:36:12 AM [facility] XR ABDOMEN AP SUPINE AND LATERAL VIEW 20432 <td>XR ABD OMEN AP SUPINE AND LATERAL VIEW 47355</td><td>Routine</td><td>12/29/2020 6:54 AM EDT</td><td></td><td> </td> 12/29/2020 06:54:00 AM [facility] RADIOLOGIC EXAM SKULL COMPLETE MINIMUM 4 VIEWS <td>XR SKULL COMPLETE 53487</td><td>Routine</td><td>12/29/2020 6:54 AM EDT</td><td></td><td> </td> 12/29/2020 06:54:00 AM [facility] XR CHEST FRONTAL AND LATERAL 78588 <td>XR CHEST FRONTA L AND LATERAL 13975</td><td>Routine</td><td>12/29/2020 6:54 AM EDT</td><td></td><td> </td> 12/29/2020 06:54:00 AM [facility] RADIOLOGIC EXAMINATION SKULL < 4 VIEWS <td>XR SKULL LI MITED 48826</td><td>STAT</td><td>12/29/2020 3:36 AM EDT</td><td></td><td> </td> 12/29/2020 03:36:00 AM [facility] CT HEAD/BRAIN W/O CONTRAST MATERIAL <td>CT HEAD WITHOU T CONTRAST 64001</td><td>STAT</td><td>12/28/2020 11:18 PM EDT</td><td></td><td> </td> 12/28/2020 11:18:00 PM [facility] RESPIRATORY PATHOGEN PANEL <td>RESPIRATORY PATHOGEN PANEL</td><td>Routine</td><td>12/28/2020 11:11 PM EDT</td><td></td><td> </td> 12/28/2020 11:11:00 PM [facility] COVID-19 PCR <td>COVID-19 PCR</td><td>Rou elmo</td><td>12/28/2020 11:11 PM EDT</td><td></td><td> </td> 12/28/2020 11:11:00 PM [facility] LAMOTRIGINE <td>LAMOTRIGINE</td><td>Rout ine</td><td>12/28/2020 9:59 PM EDT</td><td></td><td> </td> 12/28/2020 09:59:00 PM [facility] LEVETIRACETAM LEVEL <td>LEVETIRACETAM LEVEL</td> <td>Routine</td><td>12/28/2020 9:59 PM EDT</td><td></td><td> </td> 12/28/2020 09:59:00 PM [facility] CULTURE BACTERIAL BLOOD AEROBIC W/ID ISOLATES <td>BLOO D CULTURE</td><td>Routine</td><td>12/28/2020 9:59 PM EDT</td><td></td><td> </td> 12/28/2020 09:59:00 PM [facility] SEDIMENTATION RATE RBC AUTOMATED <td>SEDIMENTATION RAT E, AUTOMATED</td><td>Routine</td><td>12/28/2020 9:59 PM EDT</td><td></td><td> </td> 12/28/2020 09:59:00 PM [facility] BLOOD COUNT COMPLETE AUTO&AUTO DIFRNTL WBC COUNT <td>C BC AND DIFFERENTIAL</td><td>Routine</td><td>12/28/2020 9:59 PM EDT</td><td></td><td> </td> 12/28/2020 09:59:00 PM [facility] C-REACTIVE PROTEIN <td>INFLAMMATORY C-REACTIVE PROTEIN (CRP)</td><td>Routine</td><td>12/28/2020 9:59 PM EDT</td><td></td><td> </td> 12/28/2020 09:59:00 PM [facility] DRUG SCREEN QUALITATIVE PHENYTOIN TOTAL <td>PHENYTOIN LEVEL, TOTAL</td><td>Routine</td><td>12/28/2020 9:59 PM EDT</td><td></td><td> </td> 12/28/2020 09:59:00 PM [facility] DRUG SCREEN QUALITATIVE PHENOBARBITAL <td>PHENOBARBITA L LEVEL</td><td>Routine</td><td>12/28/2020 9:59 PM EDT</td><td></td><td> </td> 12/28/2020 09:59:00 PM [facility] COMPREHENSIVE METABOLIC PANEL <td>COMPREHENSIVE METABO LIC PANEL</td><td>STAT</td><td>12/28/2020 9:59 PM EDT</td><td></td><td> </td> 12/28/2020 09:59:00 PM [facility] XR CHEST FRONTAL ONLY 00383 <td>XR CHEST FRONTAL ONLY 73143</td><td>STAT</td><td>12/28/2020 9:41 PM EDT</td><td></td><td> </td> 12/28/2020 09:41:43 PM [facility] EKG 12-LEAD - CMAXX REPORT <td>EKG 12-LEAD - CMAXX REPORT</td><td></td><td>12/28/2020 9:20 PM EDT</td><td></td><td></td> 12/28/2020 09:20:14 PM [facility] EKG 12-LEAD - CMAXX REPORT <td>EKG 12-LEAD - CMAXX REPORT</td><td></td><td>12/28/2020 9:20 PM EDT</td><td></td><td></td> 12/28/2020 09:20:14 PM [facility] EKG 12-LEAD <td>EKG 12-LEAD</td><td>STAT </td><td>12/28/2020 9:20 PM EDT</td><td></td><td> </td> 12/28/2020 09:20:14 PM [facility] EKG 12-LEAD - CMAXX REPORT <td>EKG 12-LEAD - CMAXX REPORT</td><td></td><td>12/28/2020 9:20 PM EDT</td><td></td><td></td> 12/28/2020 09:20:00 PM [facility] OFFICE OUTPATIENT VISIT 25 MINUTES 12/19/2020 12:00:00 AM EDT [facility] ([facility], ) OFFICE OUTPATIENT VISIT 15 MINUTES 11/14/2020 12:00:00 AM EDT [facility] ([facility], ) OFFICE OUTPATIENT VISIT 15 MINUTES 09/14/2020 12:00:00 AM EDT [facility] ([facility], ) OFFICE OUTPATIENT VISIT 15 MINUTES 08/09/2020 12:00:00 AM EDT [facility] (Tj Oshea MD) OFFICE OUTPATIENT VISIT 10 MINUTES 06/21/2020 12:00:00 AM EST [facility] (Tj Oshea MD) Results ID Date Data Source [id number] 02/26/2021 10:36:00 AM EDT [facility] (Tj Oshea MD) Name Value Range Interpretation Code Description Data Radha rce(s) Supporting Document(s) Laboratory test finding (navigational concept) 4.3 10 4 .0-10.0 Normal (applies to non-numeric results) [facility] (Tj Oshea MD) Laboratory test finding (navigational concept) 4.18 10 4 .30-6.10 Below low normal [facility] (Tj Oshea MD) Laboratory test finding (navigational concept) 12.4 g/dL 1 3.5-17.5 Below low normal [facility] (Tj Oshea MD) Laboratory test finding (navigational concept) 93.5 fl 8 0.0-96.0 Normal (applies to non-numeric results) [facility] (Tj Oshea MD) Laboratory test finding (navigational concept) 39.1 % 4 2.0-52.0 Below low normal [facility] (Tj Oshea MD) Laboratory test finding (navigational concept) 29.7 pg 2 7.0-33.0 Normal (applies to non-numeric results) [facility] (Tj Oshea MD) Laboratory test finding (navigational concept) 31.7 g/dL 3 2.0-36.5 Below low normal [facility] (Tj Oshea MD) Laboratory test finding (navigational concept) 165 10 1 50-450 Normal (applies to non-numeric results) [facility] (Tj Oshea MD) Laboratory test finding (navigational concept) 14.3 % 1 1.5-14.5 Normal (applies to non-numeric results) [facility] (Tj Oshea MD) Laboratory test finding (navigational concept) 45.4 % 3 6.0-66.0 Normal (applies to non-numeric results) [facility] (Tj Oshea MD) Laboratory test finding (navigational concept) 36.9 % 2 4.0-44.0 Normal (applies to non-numeric results) [facility] (Tj Oshea MD) Laboratory test finding (navigational concept) 8.9 % 2.0-8.0 Above high normal [facility] (Tj Oshea MD) Laboratory test finding (navigational concept) 7.9 % 0.0-3.0 Above high normal [facility] (Tj Oshea MD) Laboratory test finding (navigational concept) 0.7 % 0 .0-1.0 Normal (applies to non-numeric results) [facility] (Tj Oshea MD) Laboratory test finding (navigational concept) 0.2 % 0 -3.0 Normal (applies to non-numeric results) [facility] (Tj Oshea MD) Laboratory test finding (navigational concept) 0.0 % 0 -0 Normal (applies to non- numeric results) [facility] (Tj Oshea MD) Laboratory test finding (navigational concept) 1.9 10 1 .5-8.5 Normal (applies to non-numeric results) [facility] (Tj Oshea MD) Laboratory test finding (navigational concept) 0.3 10 0 .0-0.5 Normal (applies to non-numeric results) [facility] (Tj Oshea MD) Laboratory test finding (navigational concept) 1.6 10 1 .5-5.0 Normal (applies to non-numeric results) [facility] (Tj Oshea MD) Laboratory test finding (navigational concept) 0.4 10 0 .0-0.8 Normal (applies to non-numeric results) [facility] (Tj Oshea MD) Laboratory test finding (navigational concept) 0.0 10 0 .0-0.2 Normal (applies to non-numeric results) [facility] (Tj Oshea MD) ID Date Data Source [id number] 02/26/2021 10:36:00 AM EDT [facility] (Tj Oshea MD) Name Value Range Interpretation Code Description Data Radha rce(s) Supporting Document(s) Prostate specific Ag [Mass/volume] in Serum or Plasma 0.02 ng/mL Normal (applies to non-numeric results) [facility] (Tj Oshea MD) The PSA assay is performed on the [employer] analyzer by LOC[employer] sandwich chemiluminescent immunoassay and should not be compared interchangeably with other methods. It should not be used alone as a screening test or diagnosis for the presence or absence of malignant disease. Predictions of disease recurrence should not be based solely on values obtained from serial patient serum values. ID Date Data Source [id number] 02/26/2021 10:36:00 AM EDT [facility] (Tj Oshea MD) Name Value Range Interpretation Code Description Data Radha rce(s) Supporting Document(s) Laboratory test finding (navigational concept) 113 mg/dL 7 0-100 Above high normal [facility] (Tj Oshea MD) Laboratory test finding (navigational concept) 0.90 mg/dL 0 .70-1.30 Normal (applies to non-numeric results) [facility] (Tj Oshea MD) Laboratory test finding (navigational concept) 15 mg/dL 7 -18 Normal (applies to non-numeric results) [facility] (Tj [...] Little GFR Left</content>
<content>ESRD GFR <15 on COMPUTER CONSULTANT</content>
<content></content> Laboratory test finding (navigational concept) 142 meq/L 1 36-145 Normal (applies to non-numeric results) [facility] (Tj Oshea MD) Laboratory test finding (navigational concept) 106 meq/L 9 8-107 Normal (applies to non-numeric results) [facility] (Tj Oshea MD) Laboratory test finding (navigational concept) 4.0 meq/L 3 .5-5.1 Normal (applies to non-numeric results) [facility] (Tj Oshea MD) Laboratory test finding (navigational concept) 34 meq/L 21-32 Above high normal [facility] (Tj Oshea MD) Laboratory test finding (navigational concept) 2 meq/L 8-16 Below low normal [facility] (Tj Oshea MD) Laboratory test finding (navigational concept) 9.6 mg/dL 8 .8-10.2 Normal (applies to non-numeric results) [facility] (Tj Oshea MD) ID Date Data Source [id number] 02/26/2021 10:36:00 AM EDT [facility] (Tj Oshea MD) Name Value Range Interpretation Code Description Data Radha rce(s) Supporting Document(s) Laboratory test finding (navigational concept) 2.000 uIU/ML 0 .358-3.740 Normal (applies to non-numeric results) [facility] (Tj Oshea MD) Laboratory test finding (navigational concept) 0.47 ng/dL 0 .76-1.46 Below low normal [facility] (Tj Oshea MD) ID Date Data Source [id number] 02/26/2021 10:36:00 AM EDT [facility] (Tj Oshea MD) Name Value Range Interpretation Code Description Data Radha rce(s) Supporting Document(s) Prostate specific Ag [Mass/volume] in Serum or Plasma 0.01 ng/mL Normal (applies to non-numeric results) [facility] (Tj Oshea MD) The PSA assay is performed on the [employer] analyzer by [employer] sandwich chemiluminescent immunoassay and should not be compared interchangeably with other methods. It should not be used alone as a screening test or diagnosis for the presence or absence of malignant disease. Predictions of disease recurrence should not be based solely on values obtained from serial patient serum values. ID Date Data Source [id number] 02/26/2021 10:36:00 AM EDT [facility] (Tj Oshea MD) Name Value Range Interpretation Code Description Data Radha rce(s) Supporting Document(s) Laboratory test finding (navigational concept) 154 mg/dL Above high normal [facility] (Tj Oshea MD) Laboratory test finding (navigational concept) 174 mg/dL Normal (applies to non-numeric results) [facility] (Tj Oshea MD) Laboratory test finding (navigational concept) 92 mg/dL Normal (applies to non-numeric results) [facility] (Tj Oshea MD) Laboratory test finding (navigational concept) 51 mg/dL Normal (applies to non-numeric results) [facility] (jT Oshea MD) Laboratory test finding (navigational concept) 3.411 Normal (applies to non- numeric results) [facility] (Tj Oshea MD) Laboratory test finding (navigational concept) 123 mg/dL Normal (applies to non-numeric results) [facility] (Tj Oshea MD) ID Date Data Source [id number] 02/26/2021 10:36:00 AM EDT [facility] (Tj Oshea MD) Name Value Range Interpretation Code Description Data Radha rce(s) Supporting Document(s) Laboratory test finding (navigational concept) 115 mg/dL 7 0-100 Above high normal [facility] (Tj Oshea MD) Laboratory test finding (navigational concept) 14 mg/dL 7 -18 Normal (applies to non-numeric results) [facility] (Tj Oshea MD) Laboratory test finding (navigational concept) 0.94 mg/dL 0 .70-1.30 Normal (applies to non-numeric results) [facility] (Tj Oshea MD) Laboratory test finding (navigational concept) 142 meq/L 1 36-145 Normal (applies to non-numeric results) [facility] (Tj Oshea MD) Laboratory test finding (navigational concept) Laboratory test r esult Normal (applies to non-numeric results) [facility] (Tj Oshea MD) <content>Units are mL/min/1.73 m2</content>
<content></content>
<content>Chronic Kidney Disease Staging per NKF:</content>
<content></content>
<content>Stage I & II GFR >=60 Normal to Mildly Decreased</content>
<content>Stage III GFR 30- 59 Moderately Decreased</content>
<content>Stage IV GFR 15-29 Severely Decreased</content>
<content>Stage V GFR <15 Very Little GFR Left</content>
<content>ESRD GFR <15 on COMPUTER CONSULTANT</content>
<content></content> Laboratory test finding (navigational concept) 106 meq/L 9 8-107 Normal (applies to non-numeric results) [facility] (Tj Oshea MD) Laboratory test finding (navigational concept) 4.0 meq/L 3 .5-5.1 Normal (applies to non-numeric results) [facility] (Tj Oshea MD) Laboratory test finding (navigational concept) 5 meq/L 8-16 Below low normal [facility] (Tj Oshea MD) Laboratory test finding (navigational concept) 31 meq/L 2 1-32 Normal (applies to non-numeric results) [facility] (Tj Oshea MD) Laboratory test finding (navigational concept) 13 U/L 7 -37 Normal (applies to non-numeric results) [facility] (Tj Oshea MD) Laboratory test finding (navigational concept) 9.5 mg/dL 8 .8-10.2 Normal (applies to non-numeric results) [facility] (Tj Oshea MD) Laboratory test finding (navigational concept) 20 U/L 1 2-78 Normal (applies to non-numeric results) [facility] (Tj Oshea MD) Laboratory test finding (navigational concept) 135 U/L 45-117 Above high normal [facility] (Tj Oshea MD) Laboratory test finding (navigational concept) 0.2 mg/dL 0 .2-1.0 Normal (applies to non-numeric results) [facility] (Tj Oshea MD) Laboratory test finding (navigational concept) 7.0 GM/DL 6 .4-8.2 Normal (applies to non-numeric results) [facility] (Tj Oshea MD) Laboratory test finding (navigational concept) 3.8 GM/DL 3 .2-5.2 Normal (applies to non-numeric results) [facility] (Tj Oshea MD) Laboratory test finding (navigational concept) 1.2 Normal (applies to non- numeric results) [facility] (Tj Oshea MD) ID Date Data Source [id number] 01/17/2021 06:45:00 AM EDT [facility] (Tj Oshea MD) Name Value Range Interpretation Code Description Data Radha rce(s) Supporting Document(s) Bacteria identified in Urine by Culture Laboratory test result Normal (applies to non-numeric results) [facility] (Tj Oshea MD) <content>FULL REPORT IN LAB NOTES (eCW a nd [facility]).</content>
<content></content>
<content>ORGANISM 1: STAPHYLOCOCCUS HOMINIS SSP SEDA</content>
<content></content>
<content> COLONY COUNT >100,000</content>
<content></content>
<content></content>
<content> ORGANISM 1: STAPHYLOCOCCUS HOMINIS SSP SEDA</content>
<content></content>
<content>STAPHYLOCOCCUS HOMINIS SSP SEDA: REACTION</content>
<content>ICR (INDUCIBLE CC RESISTANCE) IV ICR TEST RESULT</content>
<content>TETRACYCLINE PO 250 mg qid 2 S</content>
<content>PENICILLIN G IV 1 mu q6H >=0.5 R</content>
<content>PENICILLIN G IV 1 mu q6h >=0.5 R</content>
<content>PENICILLIN G PO 250mg q6h fasting >=0.5 R</content>
<content> TRIMETHOPRIM/SULFAMETHOXAZOLE IV 160mg TMP & 800mg SMXq6h 160 R</content>
<content>TRIMETHOPRIM/SULFAMETHOXAZOLE PO Bactrim DS Bid 160 R</content>
<content>ERYTHROMYCIN IV 500mg q6h >=8 R</content>
<content>ERYTHROMYCIN PO 500mg q6h >=8 R</content>
<content>GENTAMICIN IV 80mg q8h 8 I</content>
<content>CLINDAMYCIN IV 600mg q6h >=4 R</content>
<content> CLINDAMYCIN PO 150mg q6h >=4 R</content>
<content>NITROFURANTOIN PO 100mg BID <=16 S</content>
<content>OXACILLIN IV 500mg q6h >=4 R</content>
<content>VANCOMYCIN IV 500mg q8h 1 S</content>
<content>LINEZOLID (ZYVOX) IV 600MG Q12HR 1 S</content>
<content>LINEZOLID (ZYVOX) PO 600MG Q12HR 1 S</content>
<content> An isolate with a (+) POSITIVE ICR test is considered</content>
<content>CLINDAMYCIN RESISTANT; however, clindamycin may still</content>
<content>be effective in some patients.</content>
< content>An isolate with a (-) NEGATIVE ICR test is considered</content>
<content>CLIDAMYCIN SENSITIVE.</content>
<content></content> ID Date Data Source [id number] 01/17/2021 06:45:00 AM EDT [facility] (Tj Oshea MD) Name Value Range Interpretation Code Description Data Radha rce(s) Supporting Document(s) Laboratory test finding (navigational concept) Laboratory test r esult Above high normal [facility] (Tj Oshea MD) Laboratory test finding (navigational concept) Laboratory test r esult Normal (applies to non-numeric results) [facility] (Tj Oshea MD) Laboratory test finding (navigational concept) 7.0 units 5 .0-9.0 Normal (applies to non-numeric results) [facility] (Tj Oshea MD) Laboratory test finding (navigational concept) Laboratory test r esult Above high normal [facility] (Tj Oshea MD) Laboratory test finding (navigational concept) 1.016 1 .002-1.035 Normal (applies to non-numeric results) [facility] (Tj Oshea MD) Laboratory test finding (navigational concept) Laboratory test r esult Normal (applies to non-numeric results) [facility] (Tj Oshea MD) Laboratory test finding (navigational concept) Laboratory test r esult Normal (applies to non-numeric results) [facility] (Tj Oshea MD) Laboratory test finding (navigational concept) Laboratory test r esult Normal (applies to non-numeric results) [facility] (Tj Oshea MD) Laboratory test finding (navigational concept) 0.2 mg/dL 0 .0-2.0 Normal (applies to non-numeric results) [facility] (Tj Oshea MD) Laboratory test finding (navigational concept) Laboratory test r esult Above high normal [facility] (Tj Oshea MD) Laboratory test finding (navigational concept) Laboratory test r esult Normal (applies to non-numeric results) [facility] (Tj Oshea MD) Laboratory test finding (navigational concept) Laboratory test r esult Normal (applies to non-numeric results) [facility] (Tj Oshea MD) Laboratory test finding (navigational concept) 59 /HPF 0-3 Above high normal [facility] (Tj Oshea MD) Laboratory test finding (navigational concept) 1 /HPF 0 -3 Normal (applies to non-numeric results) [facility] (Tj Oshea MD) Laboratory test finding (navigational concept) Laboratory test r esult Normal (applies to non-numeric results) [facility] (Tj Oshea MD) Laboratory test finding (navigational concept) 0 /HPF 0 -6 Normal (applies to non-numeric results) [facility] (Tj Oshea MD) Laboratory test finding (navigational concept) 0 /LPF 0 -1 Normal (applies to non-numeric results) [facility] (Tj Oshea MD) ID Date Data Source [id number] 01/09/2021 12:10:50 PM EDT [facility] Name Value Range Interpretation Code Description Data Radha rce(s) Supporting Document(s) Discharge Summary [facility] [id number] lbm [file] [id number] ID Date Data Source [id number] 01/06/2021 01:21:00 PM EDT [facility] ([facility]) Name Value Range Interpretation Code Description Data Radha rce(s) Supporting Document(s) Ammonia [Mass/volume] in Blood 50 uMOL/L [facility] ([facility]) ID Date Data Source [id number] 01/03/2021 11:39:00 AM EDT [facility] Name Value Range Interpretation Code Description Data Radha rce(s) Supporting Document(s) SARS-CoV-2 RNA 2019 nCoV Real-Time RT-PCR: NOT DETECTED [facility] This lab was ordered by [facility] and reported by [facility]. ID Date Data Source [id number] 01/03/2021 02:09:[address] [facility] Value Range Interpretation Code Description Data Radha rce(s) Supporting Document(s) Specimen source [Identifier] of Unspecified specimen [facility] SARS-CoV-2 RNA 2019 nCoV Real-Time RT-PCR: NOT DETECTED [facility] Assay Performed [facility] Influenza virus A RNA [Presence] in Naso pharynx by Target amplification with non-probe based detection Not Detected [facility] Influenza virus B RNA [Presence] in Naso pharynx by Target amplification with non-probe based detection Not Detected [facility] Respiratory syncytial virus RNA [Presenc e] in Nasopharynx by Target amplification with non-probe based detection Not Detected [facility] Patients first test for [facility] 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 [facility] Patient has symptoms related to condition [facility] When did you start to experience these symptoms [Date and time] [Phen X] [facility] Patient was hospitalized because of this condition [facility] patient was admitted to ICU for condition [facility] Patient resides in a congregate care setting [facility] status [facility] ID Date Data Source [id number] 01/02/2021 02:09:[address] [facility] Value Range Interpretation Code Description Data Radha rce(s) Supporting Document(s) Consultation Health system LFOLAr3fClTSXuWx42/ZJVrvKXGli3SrHKvlGRl2ICnkVMYnK8JjBMW3bH2lWGL8ADmMJuGzKoQwREA5 lbm [file] ICAgICAgICAgICAgICAgICAgICAgICAgICAgICAgICAgICAgICAgICAgICAgICAgICAgICAgICAgICAg ICAgICAgDQogICAgICAgICAgICAgICAgICAgICAgIC AgICAgICAgICAgICAgICAgICAgICAgICAgICAgICAgICAgICAgICAgICAgICAgICAgICAgICAgICAgIC AgICAgICAgICAgICAgICAgDQogICAgICAgICAgICAgICAgICAgICAgICAgICAgICAgICAgICAgICAgIC AgICAgICAgICAgICAgICAgICAgICAgICAgICAgICAg ICAgICAgICAgICAgICAgICAgICAgICAgICAgDQogICAgICAgICAgICAgICAgICAgICAgICAgICAgICAg ICAgICAgICAgICAgICAgICAgICAgICAgICAgICAgICAgICAgICAgICAgICAgICAgICAgICAgICAgICAg ICAgICAgICAgDQogICAgICAgICAgICAgICAgICAgIC AgICAgICAgICAgICAgICAgICAgICAgICAgICAgICAgICAgICAgICAgICAgICAgICAgICAgICAgICAgIC AgICAgICAgICAgICAgICAgICAgDQogICAgICAgICAgICAgICAgICAgICAgICAgICAgICAgICAgICAgIC AgICAgICAgICAgICAgICAgICAgICAgICAgICAgICAg ICAgICAgICAgICAgICAgICAgICAgICAgICAgICAgDQogICAgICAgICAgICAgICAgICAgICAgICAgICAg ICAgICAgICAgICAgICAgICAgICAgICAgICAgICAgICAgICAgICAgICAgICAgICAgICAgICAgICAgICAg ICAgICAgICAgICAgDQogICAgICAgICAgICAgICAgIC AgICAgICAgICAgICAgICAgICAgICAgICAgICAgICAgICAgICAgICAgICAgICAgICAgICAgICAgICAgIC AgICAgICAgICAgICAgICAgICAgICAgDQogICAgICAgICAgICAgICAgICAgICAgICAgICAgICAgICAgIC AgICAgICAgICAgICAgICAgICAgICAgICAgICAgICAg ICAgICAgICAgICAgICAgICAgICAgICAgICAgICAgICAgDQogICAgICAgICAgICAgICAgICAgICAgICAg ICAgICAgICAgICAgICAgICAgICAgICAgICAgICAgICAgICAgICAgICAgICAgICAgICAgICAgICAgICAg EKCvKKNhCRLcTEMoZHCkLQk9H8bbVKXxNNYdVA2zKD d3Jz8+RHnWRqQsSCO2fzDeyY2LPK6mh7JgMKfiUJGsi4AeREd3FN0PBLSiZLkfBW4HYNogcv7TAUIeRP DpbBUDa2ecWrCbJFV5TKNpQrnnME3WCHSrX0ilpdMlMKCfNPZZHShyIYBUDTzxFXMJPAFlUWPqUsBkMl FoJDOmCO5WJTXcV542ooVhFX7WBa6OEpDoEF6jch7D UdWrRUVmQozOHht8APkrZS5WhPHemFAcDpIvLMZBAnEpW6lgq6CpXdKsMXBTHOicXZ4Xc6DzgUTbMWv+ Rs5NCY0hu1OxURprXwRiCO0zpq4MSXgKBjKhT9BobPbuUJCehfM6rSCiPQC4PX8mwHQuYCbsIOAAov41 GXHkCA5HUUD8FVmyIv5lSJAeCUT4TsEkAFRQWO7FYP ErRLItwAHlUPYzWZALEU2BOSafJFC0YRGupgQedZEyDHdnVN9SFXPaxkGnKlMtQMHMSKi+Ex5OFQ0tz5 FqTIcfDzHcTR3qcp0JKEoDIaKpY0B3kGYhO3Q4KMmkGl9BRWItKIUnFaFlSMFSIFzqAS0APM3smmT7RC 7NkOSdNFVbOMJfvEDbFMq1E01ogPPuYQqqRO1HYKV+ Faith+Yy5FPOEbPHKtIFYqXbYaRXIKQeMoO1DiS6PJx8MtD1EuAU50eHbjgrEnHJoxTL1CUM5cNYKsTVNE ZD8ZxJXdsU6lyqHcQCFsMRHPAjEvD13plPFcKOIiUWU0GEQvNb0JJBXwZ3KqweZnpCahulNiPKXfKLLM QU0MFFehypYinIVxyFvdWV97lLzzIK1KXf3ZNjUmEC 1swy8VdTYxJz5LJCVfAW0DIBEoJZYdUCNbOTN4TGBvExTjULsbXZBpEGGeILS7YTNqTVBvWQ8XLjKlDM ApWTLeGGOfJRQgZINuov7RICBfAQY3AwpiZSWbQRTrRUZzLUasVDCwCCNaJHC7YLNmNFCbXN7ZQsCxEY IbWLZ8FpGuJKVbZYXjed7UUCPcXANaOBRpBTMxPMMz QIYeVFfhBCFcGAM4VRUvUKCuZVEzSC8SPjYaZCDjXFUbWNFpHYUdMEQurp2KPSAiQPHlRNFqFZNhNKUz JYXjRPrqKQPgPUC2QWZoTDDjYZMeIS4EZkTbGLEoXRK6VrDjOMYeWGJqie5VLPCeYDGwEuW8DzKnYJBo ENHuKFufPELxDSCpERytNAJtRDAhSY2SDfQnLTKyHS ThKLsqPVEmLHAsqh3NMZRwTFHdNYC7WFJbXYWjOXJlSOyaHKMkCYI9McX7WZRuXWNjVF4ILnBwINVoIO H1UcogVIMzRVXynq5SSTXrUIUoAUO0XGYfDXDjSNYrEQpfPIXuHQA0GfnpHVAaBWFsDH6BQqKdIGQtLS U8NehlADWnHIIbgl8MLPQaUVMdKtT6FXBvLNYvSCYm IRnnUBEmPWO7UoQ7ZHJrSFCcFA9QKmYlNDEyVdU7HzWnOGIgLKHuin1CKOWoRYIzSyA6EGXwHLFfTELx LYefNWNuRJR7QRB6RHZeIQMrFD3KEdHqHXOiIzk2JyenSYEcLAMpmj1CYNEaOUJiTUL8YSFmPVXpXGQy KRncDXHqTWX7DMInVHEhXUIbRI2TFxKfXVEtMTFxOB WhZBUmJDMkfd3EGWDoXDW4OIBsPBWqFTCfKJFtLGdlKAIgEGWpDhNtKRNfILQqBW6SOrUsNPChYOQ4PT UtTQHpWDOudp4UCNMmZNE0RYHhTBAgCKUlPJIjKIjqLQGsNYWoXGTiPEZuTECyVN1JQbEfDDLhVUAeIq NnJGTwBWKkxo8SKTKiCLU5LqQ3AeJxFVJxJYTbXTvt ZPXaRBEhHeCcGIYaRYZeSJ8WIoRwMOrxOZMUAob4VAmvX6c8AWPvAQ0PL9Usz8CzAnliHBHRENoxLV7s qxCvXMHrJx4IE0uOFukoVSSqBnWvWvAhCXL6GUI7CeG3YZJ7Y3K5RbW6WUV2Sj5kJIRlRKDyDfMtJMX6 CEj4BdwbHEdfRiptTPiyUszkMoAcAtUgTK4NHt6ZRuB7FDW9cPBxSn8ZABZ4EEVPOiIyHQ4XIPh= ID Date Data Source [id number] 01/02/2021 11:05:27 AM EDT [facility] Name Value Range Interpretation Code Description Data Radha rce(s) Supporting Document(s) Ammonia [Moles/volume] in Plasma 57 umol/L 16-60 [facility] ID Date Data Source [id number] 01/01/2021 02:09:51 PM EDT [facility] Name Value Range Interpretation Code Description Data Radha rce(s) Supporting Document(s) Ammonia [Moles/volume] in Plasma 231 umol/L 16-60 H [facility] Hemolyzed ID Date Data Source [id number] [facility] Interpretation Code Description Data Radha rce(s) Supporting Document(s) Leukocytes [#/volume] in Blood by Automated count 5.0 10*3/uL 4-10 [facility] Erythrocytes [#/volume] in Blood by Automated count 4.22 10*6/uL 4.6- 6.1 L [facility] Hemoglobin [Mass/volume] in Blood 12.9 g/dL 13.5-18 L [facility] Hematocrit [Volume Fraction] of Blood by Automated count 37.4 % 4 1-53 L [facility] Erythrocyte mean corpuscular volume [Entitic volume] by Auto mated count 88.7 fL 80-96 [facility] Erythrocyte mean corpuscular hemoglobin [Entitic mass] by Automated count 30.6 pg 27-33 [facility] Erythrocyte mean corpuscular hemoglobin concentration [Mass/volume] by Automated [facility] 34.5 [facility] width [Ratio] by Automated count 13.6 % 11.5-14.5 [facility] Platelets [#/volume] in Blood by Automated count 166 10*3/uL 150-400 [facility] ID Date Data Source [id number] 12/31/2020 12:03:[address] [facility] Name Value Range Interpretation Code Description Data Rahda rce(s) Supporting Document(s) Bicarbonate [Moles/volume] in Serum 25 mmol/L 22-29 [facility] Chloride [Moles/volume] in Serum or Plasma 98 mmol/L 98-107 [facility] Creatinine [Mass/volume] in Serum or Plasma 0.68 mg/dL 0.70-1.20 L [facility] Glucose [Mass/volume] in Serum or Plasma 115 mg/dL 70-140 [facility] Potassium [Moles/volume] in Serum or Plasma 3.5 mmol/L 3.4-5.1 [facility] Sodium [Moles/volume] in Serum or Plasma 135 mmol/L 136-145 L [facility] Urea nitrogen [Mass/volume] in Serum or Plasma 8 mg/dL 8-23 [facility] Anion gap 3 in Serum or Plasma 12 mmol/L 8-15 [facility] Osmolality of Serum or Plasma by calculation 279 mosm/kg 275-300 [facility] Creatinine/Urea nitrogen [Mass Ratio] in Serum or Plasma 12 [facility] Calcium [Mass/volume] in Serum or Plasma 8.8 mg/dL 8.8-10.2 [facility] Glomerular filtration rate/1.73 sq M pre dicted among non-blacks [Volume Rate/Area] in Serum or Plasma by Creatinine-based formula (MDRD) >6 0 [facility] Glomerular filtration rate/1.73 sq M pre dicted among blacks [Volume Rate/Area] in Serum or Plasma by Creatinine-based formula (MDRD) >60 [facility] ID Date Data Source [id number] 12/31/2020 07:08:27 AM EDT [facility] XR CHEST FRONTAL ONLY [id number] RESULTI nterpreted by:Tomas Oshea, MDPROCEDURE INFORMATION: Exam: XR Chest Exam date and time: 12/31/2020 5:15 AM Age: 65 years old Clinical indication: Other nonspecific abnormal finding of lung field; Other: Fever, possible early infiltrates on prior cxr TECHNIQUE: Imaging protocol: XR of the chest. Views: 1 view. COMPARISON: CR XR CHEST FRONTAL AND LATERAL [id number] 12/29/2020 6:19 AM FINDINGS: Tubes, catheters and devices: Shunt catheter overlies the right hemithorax. Lungs: Minimal patchy airspace disease at the right lung base. Pleural spaces: Unremarkable. No pleura l effusion. No pneumothorax. Heart/Mediastinum: Unremarkable. No cardiomegaly. Diaphragm: There is an elevated right hemidiaphragm present on the current examination. Bones/joints: Unremarkable. IMPRESSION: 1. Minimal patchy airspace disease at the right lung base. 2. Followup radiographs recommended after appropriate therapy. THIS DOCUMENT HAS BEEN ELECTRONICALLY SIGNED BY TOMAS OSHEA MDThis document has been electronically signed by Tomas Oshea MD on 12/31/2020 7:08 AM Name Value Range Interpretation Code Description Data Radha rce(s) Supporting Document(s) ID Date Data Source [id number] 12/29/2020 09:26:00 PM EDT [facility] Name Value Range Interpretation Code Description Data Radha rce(s) Supporting Document(s) History and Physical [facility] IQPOXa5kFxYMTwDm83/YYMnnKPMhj8NgOBrqYSx9HUbbCSJsV7MbIRP7pE6kRHG7KAzGGsLjWzPjWSOf [facility] [file] ICAgICAgICAgICAgICAgICAgICAgICAgICAgICAgICAgICAgICAgICAgICAgICAgICAgICAgICAgICAg ICAgICAgICAgICAgICAgICAgICAgICAgICANCiAgIC AgICAgICAgICAgICAgICAgICAgICAgICAgICAgICAgICAgICAgICAgICAgICAgICAgICAgICAgICAgIC AgICAgICAgICAgICAgICAgICAgICAgICAgICAgICAgICAgICANCiAgICAgICAgICAgICAgICAgICAgIC AgICAgICAgICAgICAgICAgICAgICAgICAgICAgICAg ICAgICAgICAgICAgICAgICAgICAgICAgICAgICAgICAgICAgICAgICAgICAgICANCiAgICAgICAgICAg ICAgICAgICAgICAgICAgICAgICAgICAgICAgICAgICAgICAgICAgICAgICAgICAgICAgICAgICAgICAg ICAgICAgICAgICAgICAgICAgICAgICAgICAgICANCi AgICAgICAgICAgICAgICAgICAgICAgICAgICAgICAgICAgICAgICAgICAgICAgICAgICAgICAgICAgIC AgICAgICAgICAgICAgICAgICAgICAgICAgICAgICAgICAgICAgICANCiAgICAgICAgICAgICAgICAgIC AgICAgICAgICAgICAgICAgICAgICAgICAgICAgICAg ICAgICAgICAgICAgICAgICAgICAgICAgICAgICAgICAgICAgICAgICAgICAgICAgICANCiAgICAgICAg ICAgICAgICAgICAgICAgICAgICAgICAgICAgICAgICAgICAgICAgICAgICAgICAgICAgICAgICAgICAg ICAgICAgICAgICAgICAgICAgICAgICAgICAgICAgIC ANCiAgICAgICAgICAgICAgICAgICAgICAgICAgICAgICAgICAgICAgICAgICAgICAgICAgICAgICAgIC AgICAgICAgICAgICAgICAgICAgICAgICAgICAgICAgICAgICAgICAgICANCiAgICAgICAgICAgICAgIC AgICAgICAgICAgICAgICAgICAgICAgICAgICAgICAg ICAgICAgICAgICAgICAgICAgICAgICAgICAgICAgICAgICAgICAgICAgICAgICAgICAgICANCiAgICAg ICAgICAgICAgICAgICAgICAgICAgICAgICAgICAgICAgICAgICAgICAgICAgICAgICAgICAgICAgICAg ICAgICAgICAgICAgICAgICAgICAgICAgICAgICAgIC AgICANCjw/oIQmH4xpzWUtilZ1U2geWu3SQt7IBO4vj5OrTKNvGWcewmZlDimUXpWtROGaNejPXqo3GZ xpPL4TkKFlS9DkE2ZvFJgkKV9QSSTjAHShwMDlFXZwASLhYgL8DLZlMXqhPM7NeKHlSAndGPQeOETaAd LaJHOtSCLjKYByWXVyUNYUBOQkAIJrEgKtKFdeUU7J p0ZjwHO9JLm+No9CIJ8ac5VbENkxSWPlAW2jch5AGWlAPqEsP0PibeC8DMSbCZUfTb5KBNZdUYRebXVv FVGgKRVLRuXrF6OvmC97SJVGJw7+ZLfbrfQxElgSKvIqCZCub7MbUTk1WS1BJFQdMZi4gKKcSBNHQLB4 HQstoZTpNEWjccfjxRXhXDVXWdCAJQX8IBhnLj6oQX JyZNXeVfSzPCBKER7RSRHtUEHnrSTqELXnGNCVZU0BDDlcLHO7TGEneaKlqFLsPDzsAR6JEZFjelAwFt AgMCBSDQo+Et6TIY4nr5UqYZwgPtFjDE8iot2QDVeIJzOlS6Y5oLPeY6E0CLvsNp3EXUYlMVPnHqmcSZ CJPOdeMT6CBJ1rznA5OL6YgLBbRYBpQOCnuYOcIZw1 P35kgPXyGUutFV4MTNH+Faith+Ri5DQDZdKGEeWZEwXoFpZVIOMsPwU3WgY3ZQr9YlX1TmJE45kSbpidHk MDbcHE1MGT7fVKKoGNMKDM4UqSFqdN9cufAlSKJsCISQEuMfF88bgXIcETBmJUQ8RTYvMl0LORTgX6Cb bsHmxJaywyJhITLcPKXSIO5HIDyfglGwsRVqzCppQZ 69cEnqCN8EDc3QIrZqBC0xsc2OeMWoRg3XJXMtJj3VGOEsYRWiXCVeVLZ0PWGiPqHeFCgiILHpAJOdWS F2MBBwHLJxEI3ZEhUuRUBpLzZ6YHGyQGCeGMJpzf3GFXKmIXHkDoVlOWEcYUIqDEWkETwbYYYcTZPfZD J7AOPvTBLnWM4BNrQxIDEyACWrSjgsPPXdRXFwcu2W CQXvXALxHGT8UGWkMPKzXHMfZPinNIEtCJP6IgIvZMPxLUCzGW5IReXqBZXjNJs2UZFwKFMaXAPcwc1U YLZgVDHdZXx8PJYgYZTjSDLgCVmcCVKvAJLhPHQ2LWTwXBHfVX3ZWeIxZQZfZDG4LUnmUPXqSVQudi5Y NKDyAOXbFQWpDTDpMJAbNDBeNIzfQOOiHGX8NwNiFG TxRBNvPL7PXdOlEIQpMPO6ZDJwAPIcTVIqdu5FRZIsHTPoOqErHyWdTVTdGKPuNFpcCDLdPDE0DyVvNZ HgMHWfFM1PIsQuJDEhFMX0YVQvEAGfZLUhwd1EUJEhWALfIpf4ODGmJWWzGEUaBCrdUBYsWMR8MVY8GN FtQKScVN0XMiAtOGKhTYvxKhMyZROwJWLawq9GZDVd RZXeLGP4IOYuMADjZRZfKFgyFBJqORN8EsomUOEwWWUnMK9ETqSmORJkIAl7WjUuPWIoFHIpjl2ITYGg ZQNzWXh7AACiCXDaYKDxQLrjILLkEKBvFWc6NZCvNPYbRN5YYjSgJSQrUtSpLPngBJGjMGEmvp9XUPPp MDAzMTYyNiAwMDAwMCBuDQowMDAwMDMxNzcyIDAwMD HpTY3PGgEbUNIrRrQeNZfhPGVpLGVeax0TTUShWQZaQpE6ShBrVZCyWLQxYQtxSAOtPGErHvI6KPDaEO CaSU0MPxNeECEvRwT1PlJjDFZwMLVvus1OjNRypTdltr7BJOvGKo2EuRukXAToCVbgQp4cbEWlBsDyCK ZCMw3SgwEjBYUqTFMZBYzkVBJyAQLfSYQ4PGNjFvB0 LzW0XsMaUrH5WJthOECsKSQ5BXSgGaR2ReB9HEy4J1DzGxJvSdx3CAEiAoFoIDLrXEMcRtMqHeO+IF0g DQo+Jj3Gc7DxmrT1ylZqVVisKKLdEr4TBDNXM5CNGd== ID Date Data Source [id number] 12/29/2020 08:37:07 PM EDT [facility] Name Value Range Interpretation Code Description Data Radha rce(s) Supporting Document(s) [facility] ORJTVk8iWuUOBfBl18/DKYayCHTgz8KaENfxLEd6NGttZJFsY9XgIRW9sB8fTUH2ZTnGFsQzUxQuFYLj lbm [file] x/applications packager+c/0hEGlcluAjk8hUvsxfj/bXkMO6ghMRZC63P [file] PHARMACY OPERATIONS MANAGER+Cr1BKQZvVKn7J0Z1YFYwBIo1D3EOG0IRZTHuLNzrQWmfCBMvREn8Y0V0QVKbO0NXK2Xxibftwr5+ NQ8QE56EZVReUWo8C1H2gBHnX2F7xEfLlUI4LY1OZX4BgJv7vNGknZ5+FD9HP9MDLiZlNKn8N1N6pIWp U6O8iTrLsRJ9CI9MTY8TbWChFCRyglLwGu8iF4PMDQ aHLqCRAGT7QX2BkCPrHU8GoWGUF2UzfCZxGr1uJOhicOLddC4gWc2rQEypAI9NQiUYMUnWOMH3CT0MoM EbDC5WzWXYD9VehSSzYz3yJHlywAWtko1+SH0FAQKoIl3LSw4+WCfyfxSxRmkDKoP9SZJre6FoMRz6DQ 7DTN9jbOliMPV7Sl8LnUK4aORhW8nBIY9ZxDSbU83l pZQwNVXmNr3YYyA0maKiiS7ITY21wMQnc5F9VZJmX9qqEDhes98yDLhsGYrWOX9hAGWMWWpvUCyeZFR7 SyYjsisoLAYfEf7GUjFhSIx5cH6ywYM3MZT0AegzxWSwRQjlNdMuZaCaXjQ6vJkdneu7SUypIG8dCMpz czptZXRhLyc+APkbDSTqTVYwJmaUPBEkpE6nheA4de HzCBiyzDQqAs8wb6m5ZnmkYj5cXi8mUBp7DyIwRpApQXXmOi6nuG12MVhydtRnOi5DLjPyNCC5U5LfJq pSREY+AIxnPUesiYq9nQLhAZRkNv3FBGUaZAQgMKQsBBRhTQJvSPYtYLMaYBXzWLKhPJHiAZIdNVMtKI AgICAgICAgICAgICAgICAgICAgICAgICAgICAgICAg DOBjCONnHKWtHPGeEPYhEPOoFIRiSSSdZKNoCUBhLO2ZCVXePNQoJGRaATRlIFIsHAEuJPOeNVYqDWNt ICAgICAgICAgICAgICAgICAgICAgICAgICAgICAgICAgICAgICAgICAgICAgICAgICAgICAgICAgICAg TYDqQHSyFVEnKYJxWG2NULUqTSGrHRIcFJNxKTSlIC AgICAgICAgICAgICAgICAgICAgICAgICAgICAgICAgICAgICAgICAgICAgICAgICAgICAgICAgICAgIC WoJSHrUCOsAKJwEYZoJBTyGRLaYFZaNF4IDVXxIMRoZKXkDVXhJGVhRXRvGQNrZLOlNSZzFHUcGRToAD AgICAgICAgICAgICAgICAgICAgICAgICAgICAgICAg EIWbAPPxITJvSFCpPVHuHPVgCFHvQVOeCQMhWTYlFDIsQL2GXVBnWEZeXXBbWKQuSAIhQFDfJWYzLYBu ICAgICAgICAgICAgICAgICAgICAgICAgICAgICAgICAgICAgICAgICAgICAgICAgICAgICAgICAgICAg XLMjZHBaENTgDDLuXGOpFF9HXDOsCLOkSAWjQTPwHI AgICAgICAgICAgICAgICAgICAgICAgICAgICAgICAgICAgICAgICAgICAgICAgICAgICAgICAgICAgIC FuRTBkBRNbHAApOLPqXMCeHSCyCSBoTBUtEA3METZuZQSmOBFfNNRqDBClNRHcQTLmIQCpCCUpEMPlFF AgICAgICAgICAgICAgICAgICAgICAgICAgICAgICAg KYUsAVMvREAaZFVrGINuHBUsXBBjTQTxZSZyULIiXWGcBDPqDV9RUVGrGCTiFYJcVLMvBDKaSJQxFPFo ICAgICAgICAgICAgICAgICAgICAgICAgICAgICAgICAgICAgICAgICAgICAgICAgICAgICAgICAgICAg ZEAmFNHnZKAyLRYyWUBeEILoFR1BSNZaQPDdEQSaTZ AgICAgICAgICAgICAgICAgICAgICAgICAgICAgICAgICAgICAgICAgICAgICAgICAgICAgICAgICAgIC MsXSMbEKOkNUXeUBZiOAAlATNdBIPmPCAlTPZvRN2AIWDfKXFxLLWoPMXyQTEhBATqPQPgSMRqYWKaXG AgICAgICAgICAgICAgICAgICAgICAgICAgICAgICAg YJZbLFFiWRFyMACvGCVhNIRrSZHpWXFyNZNuNKYcVBZhRAGeJHUqNE6QMY38bVCan2Q8JLYzXG8lrzg/ Xf4CSMvqnlDciZBvZL9HYsIcSO5fxk2NNiXiMM9fel9LDRrZTlLgN2C9uLDyJPRzLKNGVhBoH48aRTob Xz54WZuaJKFwUwPiXVz9De6HZcArV9ssBEYrUvR4XO UzErR2CUTgLlV1PGJdDuXsLQRnWGHjVLUbJAEYADP0RJSgXjIrCUlqJU7Ob7OoqRW3ZMo+Vr5IXL4zv2 QcPTzbVyFbIX6vrd6HBWsNSpYxP3KnzwP2IHN1YSTrWw4ZKOHbQNIqoSOgNDRkPYRQLwNkP1GmlN23XN ENCj4+JRfbyrMhWhkIMfG0LWOwl2AaROc1ZR5OZAYh MWm2gIVqU72mb3CjmVFtDvjnY7HwME4bLZnytKkeBMQKEnZIZXU7FRlrUb0sOBFxOSN2TiOqPMJKUM3G EJIzPJCyiNIwBAGhVWNTSC1IPApjECC2ZHLntmQuxANpUObqEY9ECTZvmyQwZmkpIDVDOWd+Nm9IXH6e r9FmNJltAVVjAK7pza4KIFrQOwWgK9N8vGTzA2G1YZ txPa1QPRCpLBChQwYoUMSERQrnBR0CHO1filG2DX4WaIToJWHaMVNhzKCeQIi8T15inDDlYWunNK2VGJ A+Faith+Mb1MVVSkALJzAPPaHpZkVLOKUhNtW0TgR2PQn5MzJ9ExQK71fKxkggLjVKyoSH0UZL3pVMTzXT NWVI5KbEJzyX7wsgKsWgEfBXMRBmXiJ39yrBQbGJGe XKN6MNInMn1KPFSxT1FrmyFoqGfqdtUxRBCmBSJCZT4RNGiexgFlnIOogOvdWB37uPiaXL9MYx9XGqKi JI9xpw3WqAHdDd5ICBV4SP0XGKRvSJEeZAGbXPJ3FUXmQbNkESblZAFnUYZsITD3SVMuHTPwEQ8ISkMs MXVyVxViZyUwNMJqBCGxmj2YTFFqPJP6JMfmNEAzSA AgQSGjXYphYFFjBRUpDSI8LMGxSVWgFM5SNnAvPADlDDOoAsWnQNUzHRZfnx9YIMReYFBpIKB9GLYnOJ AoJGCeBNweZZZrTDM9QCQ7GCQmDSYfQO8CTiBjOMVaTTrkTiJxGBTbKPZqmh6GBTBwKEDqZVA2RMBqBT OkWBEsBJxwIBYiRZHkMlj6APCnESFkSQ1GAbSfOXAr OCE9HVZkDBMrNFKavv2RTDLkVCCvWuy8UgTgMIUhSHRxPFgbTQLnYGJ6IBx7YZOlNGNqOF6VJjCgGKOu ZFXwZWCrSMNsOXMloy2IPOToPXUeOhW1CbWcZUNtDDQgOBaaJZIwXDB9JXF6LAZlEBNpBF4NHxXaOOVz TXn8BUjiVTIzUKYnds6TFEFgNKHqBGZeMaBsBNGxEV KeJSdrGMBfNVO5Csy2OFAnIOVbVW5YDgAuJJLfIUz1EMpsCZFrMILyce9PPDOnAQUzTKv1EJGpWPIcGI PlXUmrMTAaGWIdOCQ3LKCdGFNfVV5EBnNhRLWpWoWtIImxWDFpCFYrrs2BZMQgXPNaHIG0RECeTITxXH ZwPBfiKPWmVTMtOTl6PUIwTJDcRU2YWlYeSIEpAMB8 WxDmULSfDSXaqt2YOKWpFZS1QMQnWNQvPWVgUSHqHNctQQGiECQ8PhW6XZStLCCxJI6SKqXsYHWtSVF4 YVppXQItQXShuo7TYTQcIXI6VtUdALHpOXWuCVBtDPlpOSBuSUfiMkSsSMJnKBVyYW2UEfYbNRWeGhZi OeFvLJDmSDFxky4VQSWkKTO9AnI2TREsHAPhOGWcJT xjVTOvBMuwVJJ1EYHlQMFgLM8XNjArUTBkVfWpAUPxFJAzBCIqjr2ACUNgEDV9BhB1NWPpDPGqFROvCX ffRAIpAOf0SAH9OUAjWWGsMO0SSaMpIRSqTkApXvbwOZWtWPGwcd0ZSQEqOMY3CCA7LXNhQUJgAXUzZG r2ayZozQJkERm0YJ9EV8ImdeWkHZIAFm2Ry331PIS1 CDJjKc6AA5ccAq0nPPPgOXQYVh0WPCq1QeMcVWV1OoH2Xlp4FFN9OADtHTL1UERwUIzuTrJlJZV+IDxi R2R7DaZuUCMzGKUpWBkxUpW7BJniV9RnD9HhXUNlOK8vNRFEXc7+HStgkQCojEvvXSDHDou1IKLmCWna LLEQEl0M ID Date Data Source [id number] 12/29/2020 04:28:03 PM EDT [facility] Name Value Range Interpretation Code Description Data Radha rce(s) Supporting Document(s) [facility] VIZBNo3qPqBQUcDs14/BPSvkSXKbi2UqYDjrVNv7ZJuvPWHwO3TdATY0tE5mWAC4MZeIAoCjOaRfXCKw lbm [file] bpXXM5Gn1WNDMAJ3VHDi== ID Date Data Source [id number] 12/29/2020 10:46:26 AM EDT [facility] Name Value Range Interpretation Code Description Data Radha rce(s) Supporting Document(s) [facility] DRHHTm1yNzZIEiJfd6TcYbMtOUUfVL9yyoz4Q1N6kCXlH9MfnILob9miS4EyB3AfPEEvCKXLKO9OnZDf jb2 [file] ZMqTKU+mPIXyFMpTKE+hPIXyFMpTKE+hPIXyFMpTKE +hPIXyFMpTKE+hPJXyVMpTKU+lPJXyVMpTKU+lPJXyVMpTKU+lPJXyVMpTKU+lWTR7ukET9XdOQ8ZlHD 2YdqR4KJcC0zXmzUTBZO0mTIB4stF8kzRoY7L2taS2lhXgC9B3xcG4ffJjD5N5vkJ4thGiC2R0otC9rm TmP4d1zkO5tdZvG6g0wnG3nyJoZ6y8xfZ1mnKgM5x9 aeSMvyWhh0Q6v/ZQchBjm1O2x/KEuqBki0U1a/YBfpQan3O3z/IJmeRze7M6m/KNwdYie2R7l/JMyjMp z6Q8k/PPkmKbp8P7z/OrkQgIPp5x4lAQugyvLEkx4ffNmpumZq3cgWpgbz413eih3+rxEL1uli6p+dIl D2xpB4f48BEpYmUvG711bIyi+cBzQ8wrd3TSyR3s0P Cjhxs+XPghXQAiXQgiXRAiXRgiXSAiXSgiXTAiXTgiXUAiXUgiXVAiXVgiXWAiXWgiXXAiXXgiXYAiXY giXZAiXZgiXaAiXagiXbAiXbgiXcAiXcgiXdAiXdgiXeAiXegiXfAiXfgiXQAjXQgjXRAjXRgjXSAjXS gjXTAjXTgjXUAjXUgjXVAjXVgjXWAjXWgjXXAjXXgj XYAjXYgjXZAjXZgjXaAjXagjXbAjXbgjXcAjvcgjBw/gzQ1mwF+6WQWF+FXHlnwexrwYCUXSXSahULpL UKQMg6bHYfdwBAQe0QIKRmM0ZQKUl6dELkKoJIgIj4fDrkfYKIIog8hSSy6e0RDz02R8CxK43MXxgYba EVDiVhPt8d350kb++Magda/Zg909yefjxn+FmOL1Fik iLl27pWcu8dSMCY8g/mbPyVIhOApYECLKhl53Z+hoczFL10BeeomFqw1g8emPzP6rCk43oRiMf3q/dJB pO+jZaIYMGK0qRlVrnj6iZeEr43G+bJjGfJ7l1qhQcC0v2mC8mMLMV5u5CEksG/fTvNInPt69aduW/nu WdCG50sCvJ+dlIQl5q/3hDhx2yAfaLhCJ5X2MOWbC/ mUbIqgHBWOUvIC6geLhcgn41mCTia2rnXjL7VS8xohokg4ziagKdySZBa6RHiAfFYwwrUKCBoLqsQLYT H6hULc2dXeu8wsxe05ack3xnnpYph3TAt8rPkPekFOmzuL7/VRMkKr77EH+cJBjGulgtgC3HUmPAKONn JqqggSGGYXeSDl0UvM4oXRtxcWjx7wVX0XHWaXcNca pfAlkWUnWXw55S0/1cWDePwb5Yl8l+Puul//fnQLQhbc1//t6e8waw897ns/WT5alT9Vlq5WVSr1HsfP PFc+K64yjtaeN4mufHygmfqSu8ws5XcnkewDf8pd9Ooqzz8Mp5b46Isirx1Hy7m82Cpjyq0Ij9z70Uqo flMZq8oP0UmtttPBk4lP8RzkrvpTs4ht4OtqfyhPw8 ui4NwstdoOo2ju53Ud3hDN3IXlBIUZXhHe1wGv8l1ffAFx5xR59zhL6cfgam3YuoZBYy3Yg9rtcpzK80 aji9wu6DqfnpjGn1co3RbbnmaYm7jq0Egddh2Oh4d20Wsxkn3Wb7s90Ethpb2Iu1cQ4IsbxeBRi9rN1K winqUZv7lD9GcomexBk8ux0UtosidBq4ww8XdrnqpP kZZt0cDlWXBNeCkopsjP6NUx9vTpB8jObO+T5+Yqc4UH9ElZ3CbubmUs3sM6/1VE7gCS/Zpsnln0V8Hm zdjIAzb5v2srfly9J0ZfmsaV4r65g5rgigv7U+LflacJ5d77k3jjfnl0MlGpcvqKPzS3b5eRbqp7XeXm hswRMhI7x2sDhkx0R6LqdmpAtla1g1xAmxx1Q3Wxfs jRWtiS8yWPq6PrwH25gwDp3YLI5S0mqSOxW0ob1phOam2K2ZqJakETM5FYGNclf0V7bS4tcLZYJZDglx ThFH+FtBZ0kOrSYgIsKBtNwtlBKKilyapBCfwTPrasOXUxVKaLfHCRqxlaZ1OA9yWgfKVsefv4AHaJGm UaYplblqtbPTYyKScm7FKbn7Xx3wB6flkCuzoROKWF 9DF5UI7mWwWABS3uqwctwgvMEPcEdyWNwKsZVIRkPLZoStNrW97VGhiDoUm9JZu5I91UwO04SHpBC4dX PWrwNiyN52lJskvSQPZ3TDIPKf1CD9xRAKjsDntNCnRNxWszjTiBqoNp643UqK9xHoOr8tCzTdtXeNpC sD9rlrS3+KQegUNUwGwTuNQFJqPQ6mDxdVpeaD48nS OQKUgE8tH6fjT2nWMufDYJYPqUR9DGNyQi5Wi3QW6AS4FMTefQvfxopBn31QiDH8C7E2c7sKIkd8B6Og JYTMlDfZkEu2gCuUD5/OL6Lj+7CFxz9FnbQtxfxE3dJWgu7gPqlL9WEVSzZS0/MYOCYK3aDRsbanaPGy uFqnetC/OojHnLVGeWTk/auD+C4eZ1RaLE6hbtwIol xA1zp+E6tvUm+applications packager+pPoTXWqUU8ufIXhWaVSLp1GC1pjRpssH1oxHpq4qTbaOlqCzzKhTE+0RubfNTr1s [file] UgLmn/GiXlarQR5KDh0+dms564yPSqOhA63k21Al+ZHpasZ5w0CtzHtY79pjKYFpYn50LZyqIe33/tubing mill operator 1kvdqub/cwNdNpUvCN/v0Gmx3wOPSL3X7gs12K+I7/ Sh6N6bml5+fy76si6iN/uwC3TRa715gcpap+M75f/5d/S+ccqm5gb61r6Jc+ieJ9lUX/Tnr/29Q1pmbY 2fWt/n/XV/z/rm+E6Qg/sp/orq/3JSwd+03SLRvqqyvrZbu+2fhfKByUcG7hCviEdP4I3Kis9ih2q9tL N/4zhx1XVtbCqyMBVpo+bOD/RPiJ/rdzmj2m999brU rJ/tBrwTf+b17iHR1wo8Wdw73aU/GhFTsaF0qb18Biwjpvvv/lhejf4/r3q75+uX6/N7r/X/WVFt+v/9 lU4U6x9Yecv252ccQkPavJf3t8KKI+R8H/ul3suhGg7fq08uEy8hxF4xdiaFPM+3kOAL0mI0tRbGiuZ6 yzVs85oay+8UmIivc929+BBc7xYhtS3ZuiDzCyc81z PnnfZhaO2YoNWQ42+1XfU+aV4+l9yBwpmErmT1IK3c0sP6I3jkhJkyfkgo7AkMmodsos5rEoYW5EFzfB y/658B0vA/eCbeow2doBNcW5H0y/6K0zz66AyA+5mXFnBVGdHnA0l+m5eQBhHUX8qmWCE6biIkq7k2Z8 w95kiule/QS0+47OxyTxhe7jmCjM18JZ7gjVVipxda W8uZJWSJ3vEt/9Uuh+5/q08daTs2vviTSQ/2wf9LnCUk4S/2zf/UDohukIP/B/4P9E+SfqtW6/EsdXbn 7X8LYjjRxXS7W1PFGusjd/AeuUep7lV2/J8QN1g662977bpKVz6UL+ltqRfr/ryc9LsyC9TrOe99ryBT H1mF9zb8VHOU+Fw0nU1/SBFCkshs1lxxOGoAPbFRwX VFkzQP0lH6ly3Kj4zy0ja+M/6sb56qjo/0T5p+D34xyuyhrRF6jzryE5is+K/2O1Mr7L40BI1PTgq1wZ DTYGpnJcSTqKq8IA4kz54r09oFy/3fbtUh1l+OdQfeQfbo77hTz+CiPdOT/nab6j8hwucH2kMReqdY9/ 5lEdi2C6/2pkw9WtG/xwrdujqmhdw7r2xiyR0+y3iv 7j8N1uE00w7J+Wl23Y8tuTl7vFvNA+83bJv2nu/JCUj+Ouu3beb/ON/+jPhv7s+OqoXhEe/hpTb76j/E F4wg2A7TBNPZM7Tz8KrIDPl1U78Ar12Jxc+qcEk7nmFGX+vaXcHF/Ft5aMi/p21Ldj/HbUd+GbE7Akx/ Ohwpg2Vk1SjVQzgKpW3Wqb0ffof5eGCoYc/H1Jb9tJ N/14SRuixa2ThZwgl7a80w0i001ncRLcQtXe6Tj4U28Jxw9b942r/HuiP0/479asbU1rPN/HAj0HwnZx ovBZFp86Uon+OjhbkIosS9sCpWpLdq8/0Z8n+aQigwfH2QnK146wSu1P7N+Th9cDUhInutY+SmG34Z5X Yga6bN24hyGEXw5K/8cxmBC02sxD+77KyLol59bk+E rjO+Xg+RoEs650K3r5Vjsk02xn9f+1/Py2S1LF5n5l4YDBlEV686/qc1rJ+jbHV+k4um73rop+fyD8RP iJ/+j9O0V84j4QH0A/cq1t2Wy/gkGH1c8B7F2/Lakisha/vt6FN+9D45DcX9ik+D+33m7CtcEvf6F+sMyzV bM3ezDOV/962oaEhuo8ukR8io0OzzYYZey3KEOTu/X RBC+CVulh18YVibmsCFvG5iEpeAa+I/6bPtktErst39Al0C3218lqB1mgi23Nh7t1igdGE0nee6cfnLG UxuxSb7A0TmbvW3owo0ctq6D/vpsjvN2uovatjgB271U+F3fvc/cJ9UES7NsgqL7pD2Fp3tj6B2pIy/Y HF/1a3gsRg+f+rgihu0y9B50OisFUMXOrc6z6fWb5k Hs1Hcp9oua+ttHysB70+t/9/Q7/fjEj0p9V5/dMLs/R/lnOTqH/UonqaGnPRpoQ9f/wlcn/GJCun1bL4 4cuk78Y1/qd7d2n555BEPH4FNK3CElAedKxn/ULPHzfvVyxqDl+inR18fb0oeAv8qZhy+0v4qfWhwaEU O+tyQSKxcoCJ49i6iXXb7ja9/Ueq6/qaGYzLDGC3BM /L5nij7wCp59j31zmOetr5zUzhK/1ebyQ96mm4lR58Lz+F/oCfCfszwWMdFv21nxT2mjhciM7p8514+O r+Ta6B0i81bYr0f4A/n7eyB9vXiklE6D/QczrU1WdEdW86v6D/gdOvkHKi4810S/qekNmPH3J72h6vmA +ELgwFl44Ad7D/MtpX6m8ucnjV9/2LVAoQ5C8oe5ul EYzy807Jn3Ez/BMD13UTslu7U7CV6B+oh62M6N9z6b6D/4k53xGqrSgb15riR6llQ+as3vIxb75S7l+Y BDy5JQn9S/sz+s74dv17ovjEt+N/xv+J/9ZzFwwc7ZSE/h9wond99iUrf+3dbMFv0Vj7jH/qxl4v/C/8 STivNBrdmftaK+Batool/4H+tb5qwcnVqE1sKjVmbTijx [file] 2OgJUHT6kdgRCXcMty7YpeMDB2vcYgcT8PdZpiJH1F5u8OyV86wdOViboQRaGXj1AWsEekcFhqGV/Bryant EDiVhTlT27obZknDrCCk0+9MKxg0SZT+3CxpzrPpoDtJYaZbM7/WAn8f84cqg9+0ESXuj+TBsz6QL7Xm /f4vFPOmBI7mvONeFPynoQBZBrSVCqA8bmXWLIbAX2 ni/lhO5Va+ypuBLPgg5JDKw81kQadONcoSjcZdK9wxJ+7EMmQ6lfLFYPrUCbfliZvtoQnNP1etCOW2Nt 3+RRLA6e7kjZb+OHDfbwhohy8QmM8aR5D6csNpz8GZ6/7hF5/n5bxOnO4m29+//bff1rd/tGq8f581+P KymBSym9r78q51q4++/jdYg802+/BSm02KpH2yRPH2 6kDvuj1ermsUjjoiwWCi8qSyDrd0x3xM2Uo2dC9F+awqw7+P5sa8v//6d2/ff/vdp88/hQc9kGnns/ri 81+/ff/1V7/39DC1de664pcfXt8c8j+/f3t7+/jN95+++rrZ44lMvo7+9eG3n//3F2K5arlItt/SvbqW RacQqS183wtltS891m1+/xx9nmvLjdH+Hvu04bj/7e 2bj2//0lMz017/cxys6kc7p47+exfhd9//9mltuqi7reALa/qHw8dpvwg2fQSrcA/rzz++pxNM033+/8 Mcs264+u3LD7/+/Hd/J/fgih02u6+/+/bDF1/996++ePv09q+f//bD2+e/+Pqb95r++s5JP203wPu7Qj 7rrz58/L6Te868/OOHL9/+6mtDd1e53WBm901667+1 /ew3n//vIc51Vt/sR6F5G14thNnPbWBdSy+/e/vtN7/+8ZeeS5f94yLf5gg8uxrGz3/34cu/E+cF6v++ BZvO0Etff2/8+T/+8Nc//fjvb//H/3r77R/++Mcf/vrXH3/44z+9ffnDn//w4x/f/u2/1flv//j2lz+/ rZ+3n++rCxcp6u03Y69//83fNON+y/RKVexPf/r5fz XiPWhms9rw/+a53Pj7Je2Rk+VX/y+2K66d9lnx5n4H1L1xUqWTe6/kgVn4lAwPanj3+xVFNZuiYF+8D5 T14xWpser8x8F2+B8/jaquGz9A2d1+98+/+vLt0+e/+43WP8kwaoNfMnn6M46JXwxSUnDsD+/Z5X/xLR PeplmSOSdFpI+x8tsf//xf//z21x/+73xF9b7s3keb 4HkF+qThhC1LCtS4sxwG+e3Htz/8+b9+/Ov/8zeF9+SPMJ/Je9kPb/6d1A/v1cP//X+8l/0Pf/nzT5Pf 9ut+krwncXn/8unn//Xa95kxVZL3BuTc3gEY+i2aow30XrBrL1K/vMqI2/TO4fM7jFJY6+9WSy4b69qF //PH//zbcXPbTexnn3//y5+1cJA2Y92to//rr//2jz 8JfdrhNz/88dG+96L39yf/8fsf/vMPP/z5J/RJoMf9x6+YV0Yf//KUB379N3r/CXCq8+u//P3tUc3k4E OLRAKffvz9//XnP/z+lOHbot69yenT3V8BoLK+53+9d6l//+o6i23tt/szjKCl338dkkR+Z3/3GUf3a+ H8/w/g6rfX47yT+Nsf/s8f3+rbX/4p4pYIqb3ktAa+ p47Jjtw+fXj/ft81f/jy02c+872VlqvkNx+//KXbk2kqn2en1fpfS5mobrvzv6p62cye1vy6o8//BxuB v8ANNB5nu1MvEHXsFwMxVH7bjpwfFLZsCT4jnld6T6JwtLofQGpPJWRgZf1ikVXrMG9GVBK6BXygLBMh SOTaM1BgvV9pQ78aoADoMqChPFCYAG7TpiH2UZB7KT T6LGVyByJjTPVsDV36FMMwISYGSu6vjhMlGshLJvLoCR3scra1N4M5cQQdK508gFrjutXwYM1Nt6SjgN AwUD0QrDBwnIVsSIWaSGDiZ6wwo2UoGSbxOLBBVu0ztjTrEfvGHhScGW3phoe0H1J2bPnhyfBfZKQYDG zoHseeEL4lvQxgyrkuM0XttSRhMCTmG0MgPFYdd30L KCXiLWkBInAcWqTxHBAaLFH7KigaElZvAIKgCTUhHYKcHE0AzNEjSGUlWRLXNEsuIfujDZBdmF2uqVLR n1WlC2mEDGYWBYmpRDCWJuJgKxT0VDwvAWZpK9CnwiRntPOeZOLPSGudLnynWQHbtO9akHxjQ4FmOAI1 z2IjYV7PJ0IjSKPvYUMFTGH9z6SgNDBxtvoyuqdlVx BkOCGzODPrBRLfDT8Zdr9tvYZnvdLpHKLAHJddAzrpDZ0xeMzvkpuhS4GmcMVvNYN+GbMcTN7jac4+Cj BiHSVlSih8HVQiOLjxVSZaTYBrGEPpX5duLJArSgMtFNBdUbMpCF3Ik6AgwNZkJp8sjaYhSobKaPNsSe mrRPQaBJRiKYBbQzMGVDYoKOUyGFDaLGP6BTVnUWLc IYzxEWBqRZsaEaV3KSTrXCTyRZ4jMrDiDECuWqW0CTKfRSDgYCEpnjCTXCQvIVB8LvS7QTReSEVbSSYs QVhkFOGjETQkHAVhEWW5ESK6CTHsBsTvHNIqDZZpKPZuZZUpUAGzfwYDSNVyCJXkOHE2NIQpBWItBFCx XNwnXTKhBXTaHWmrQRPeVNWlMF9uOiDgHIIoWZAnJL dwQOWaSXMmvnVCABPeXTCuJPZrWAQrDMFmWSUfPTzhXBZsXXXkMPIcKSXdKNCkVG4eGpPkEWHlVCI6NQ PxOSSzELLcfiDWASJhIXDlXLv8CGKtHUVwZUUjGPgyJWRoKCMmLQW6QQQvTLOiWB3oBmZqBVOhDJO9Eh LhMJMlBHKczkFYNZUwJKNuRHB1HxZfBPXcOCNfKPie LKFyZVFeDZvwRBWpQFKoCI1bVfQlBDNmTVZcSLxoBFGuILDrxzMDCEQcQFIuCAVfWzMiOPTdXFSfUIhu PSPzJLdzZJmqXCNrVJPiGX2fFnBwUDKzFZE4KBixCPRkOWFuxhBNSIKkDMUpMGstEMXkNYIuGOOuOCwp CRNnKZNhAHT6BXAdTQMsWM9oMwGgGCXeRYVvKNExEx O8DmVvKpQPbMCuyGhwvvc6ZJbeC6g3PMAgPFsrKG3lvxMpLFPrVedxLg7zyWV3NYPaDiyPPc2Kv6Vfnn S7vhFbQjojDmguEkRwWZ2Y ID Date Data Source [id number] 12/29/2020 10:24:42 AM EDT [facility] CT HEAD WITHOUT CONTRAST [id number] RESU LTInterpreted by:Mildred Bill MDCLINICAL INDICATION: Altered mental status.TECHNIQUE: Contiguous axial CT images of the head were acquired from the base of the skull to the vertex without intravenous contrast administration. Images were viewed in brain, subdural and bone windows. Automated dose lowering techniques and/or adjustment according to patient size were utilized for this exam.COMPARISON: None available.FINDINGS: Patient is status post right frontal approach HOSPITAL CARRIER shunt placement with the catheter tip in the right lateral ventricle. There is no acute intracranial hemorrhage or large territorial infarct. Bifrontal encephalomalacia is noted, left slightly greater than right. There is left parieto-occipital encephalomalacia with partial ex vacuo dilatation of the occipital horn of the left lateral ventricle.There is diffuse cerebral volume loss with commensurate [...] and left parieto-occipital craniotomy. The scalp is unremarkable.IMPRESSION: 1. No acute intracranial hemorrhage or evidence of large acute territorial infarction. 2. Bifrontal encephalomalacia, left slightly greater than right. Severe cerebellar atrophy.3. Left parieto-occipital encephalomalacia.4. Status post HOSPITAL CARRIER shunt placement with the catheter tip in the right lateral ventricle.This document has been electronically signed by Leon Michael MD on 12/29/2020 10:22 AM Name Value Range Interpretation Code Description Data Radha rce(s) Supporting Document(s) ID Date Data Source [id number] 12/29/2020 07:10:08 AM [facility] XR SKULL COMPLETE [id number] RESULTInter preted by:Avi Martino [facility] INFORMATION: Exam: XR Skull Exam date and time: 12/29/2020 6:19 AM Age: 65 years old Clinical indication: Other nonspecific abnormal finding of lung field; Other: Vendor Manager shunt series TECHNIQUE: Imaging protocol: XR of the skull. Views: Minimum of 4 views. COMPARISON: 1. CR XR SKULL LIMITED [id number] PORTABLE 12/29/2020 3:[address] HEAD WITHOUT CONTRAST [id number] 12/28/2020 10:50:16 PM FINDINGS: Sinuses: Well aerated. [...] HAS BEEN ELECTRONICALLY SIGNED BY AVI MARTINO MDThis document has been electronically signed by Avi Martino MD on 12/29/2020 7:10 AM Name Value Range Interpretation Code Description Data Radha rce(s) Supporting Document(s) ID Date Data Source [id number] 12/29/2020 07:03:32 AM [facility] XR ABDOMEN AP SUPINE AND LATERAL VIEW [id number] [id number] RESULTInterpreted by:Avi Martino [facility] INFORMATION: Exam: XR Abdomen Exam date and time: 12/29/2020 6:19 AM Age: 65 years old Clinical indication: Other nonspecific abnormal finding of lung field; Other: Vendor Manager shunt series TECHNIQUE: Imaging protocol: XR of the abdomen. Views: 2 Views. Upright and supine views. COMPARISON: CR XR CHEST FRONTAL ONLY [id number] PORTABLE 12/28/2020 9:31 PM FINDINGS: Tubes, catheters and devices: A HOSPITAL CARRIER shunt is seen. The tip reaches the right upper quadrant posteriorly. Gastrointestinal tract: Air-fluid levels are seen throughout mildly prominent large and small bowel which could reflect an ileus. Intraperitoneal space: There is no free intraperitoneal air. Bones/joints: Unremarkable for age. Other findings: There is breathing on the supine AP exam. IMPRESSION: 1. A HOSPITAL CARRIER shunt is seen. The tip reaches the right upper quadrant posteriorly. 2. Air- fluid levels are seen throughout mildly prominent large and small bowel which c ould reflect an ileus. THIS DOCUMENT HAS BEEN ELECTRONICALLY SIGNED BY AVI MARTINO MDThis document has been electronically signed by Avi Martino MD on 12/29/2020 7:03 AM Name Value Range Interpretation Code Description Data Radha rce(s) Supporting Document(s) ID Date Data Source [id number] 12/29/2020 07:02:22 AM EDT [facility] XR CHEST FRONTAL AND LATERAL [id number] RESULTInterpreted by:ANILA Haas INFORMATION: Exam: XR Chest Exam date and time: 12/29/2020 6:19 AM Age: 65 years old Clinical indication: Other nonspecific abnormal finding of lung field; Other: Vendor Manager shunt series TECHNIQUE: Imaging protocol: XR of the chest. Views: 2 views. COMPARISON: CR XR CHEST FRONTAL ONLY [id number] PORTABLE 12/28/2020 9:31 PM FINDINGS: Tubes, catheters and devices: A HOSPITAL CARRIER shunt is seen with tip coiling in the posterior right upper quadrant. Lungs: Subsegmental atelectasis is noted at the bases. Pleural spaces: Unremarkable. No pleural effusion. No pneumothorax. Heart/Mediastinum: Unremarkable. No cardiomegaly. Bones/joints: Unremarkable. Intraperitoneal space: There is no free intraperitoneal air. IMPRESSION: A HOSPITAL CARRIER shunt is seen with tip coiling in the posterior right upper quadrant. THIS DOCUMENT HAS BEEN ELECTRONICALLY SIGNED BY AVI MARTINO MDThis document has been electronically signed by Avi Martino MD on 12/29/2020 7:02 AM Name Value Range Interpretation Code Description Data Radha rce(s) Supporting Document(s) ID Date Data Source [id number] 12/29/2020 06:34:46 AM EDT [facility] XR SKULL LIMITED [id number] RESULTInterp reted by:ANILA Haas INFORMATION: Exam: XR Skull Exam date and time: 12/29/2020 3:31 AM Age: 65 years old Clinical indication: Other nonspecific abnormal finding of lung field; Other: Focus on shunt valve to confirm settings TECHNIQUE: Imaging protocol: XR of the skull. Views: Less than 4 views. COMPARISON: CT HEAD WITHOUT CONTRAST [id number] 12/28/2020 10:50 PM FINDINGS: Tubes, catheters and devices: The pressure of the HOSPITAL CARRIER shunt is set at P/L 2.0 best interpreted on image 1. Sinuses: Well aerated. No opacification. Bones/joints: No fracture. Soft tissues: Unremarkable. IMPRESSION: The pressure of the HOSPITAL CARRIER shunt is set at P/L 2.0 best interpreted on image 1. THIS DOCUMENT HAS BEEN ELECTRONICALLY SIGNED BY AVI MARTINO MDThis document has been electronically signed by Avi Martino MD on 12/29/2020 6:34 AM Name Value Range Interpretation Code Description Data Radha rce(s) Supporting Document(s) ID Date Data Source [id number] 12/29/2020 12:44:01 AM EDT [facility] Name Value Range Interpretation Code Description Data Radha rce(s) Supporting Document(s) ED Provider Note [facility] PGFMQc4vIgQVFvPm44/DPCpcZIGof7QvAXtaNQx6HTivPVLlZ5JtQJY8qA2kVBT6OIoWOcJqGhOpZCEo lbm [file] wrZE3UYBL+Faith+Xa1ETPIaOUWaSYTaLyFwBYQEPcOhS0RkS8XZk2OcU7KvCX93bWmnyySbBChyOW1OYQ 8cPJVhWFEYXO0QvRByrT2gbpR2RKZnXIJTBrLhY34tyQQwJGPaILXhZRBhYo9JRCSrZ7QwkiHuaBegok GfUKOcJUOJIM9UDVdfloXzkMSrdBxbZR95kZorIP1G Ju2RAjHrPZ7yls5AuLVaEy6TIHK4JJ5GIALaVOCpEPCjSGJ4LPLfKwJbJKgcJIZnUTQfJCQ5BHEkZBWx XF5HEjFhPTMdZRP8ZJJmLQEbUNFpld1DCDAzMLL4TyBxUpZlUGHkAOVqKCceCPAuUAElJRL9NFEwHKKs BM3PMvNuGWMiNEB9PzesDPSbSKNqwa7GNYPjTJKfUb s8LeYtJMLiIXHzTPyqZTJhTNM9BNR8HZUtRWUpMH8ZHhDlBPUbZOWoCIzoNJCeMDJbbm2GMQHhTJGtEW A7ZFAsAVEtGCSvXTvgVHPuHQQ9TKK5JCEgWTScMW5EJgCvTEHsMAG8XGxfNBUmBGXqkt4VAVXkGKTsQn C8ZINrGOCjTTCrRRdpOHLtXQK1PhN5SADbVSHhLS4P CkFdBSKkORB0JHAyUDDfMDNtcp0AXYDrYQBkDMw3LgMtRYMnSURyATufODHzRZD2NXS4UUHgSQMnYK4J LmYoCQIdOhBiDxrwKUFfTDPchw8AIIDoJGThOwDqAwYjYBKwACEgBWvfPTKpJDI0QCu8BQLtTKFjIZ6W AqHaRZQgOhShFAXuHLOpTSZkge8IDDZuPFJrFBBxBA OrDCWyWLOuXOpbNQNvRPQ4UuQ9YUArBEJgTN7HTzGdPJMaMxY5YQAgZKJsNSFovc5SLJMjCWAbZGn5Am PxRGVuTQLkLChoKTCoCXY5IPT6IWTvHYNgKV4OUrCiQVBlGhZ0ARQvKMAhVHSsof5KMVBcIREcIEG2HS DfBGDzQYIxZTqsAJTaZFP0Twt0MUNvXFQkCM4UDtMp KHHgTqhgNCikDWDvJZTmse1DVPAwIUDxGUY0GENnFUWxXKHpUBiyXJZbPFW0TcK6VZOkGBSaGM5WWnVt CMJwKCI8DUTgEETjPSIhjy2RARFqIXA1NVw1THKqOAZpEVFyXOlzMWZqIEQdWFc3ZQDkDUDrGS5QYbJj EUZiFPP6SzPnWCYrWLLxwy9RETDoGDI5Jrl7XFSgCR VxQHBkAHfeFVNrRLWmWCu6RBVmPADcSU2UQyEcUZWnVOZkJpfaHQHjEFEucv8EGVYlZZU2VhG2TqXtYU YbKZSjZXtjRQAcPUQ4LbK2AYTdVYEjZG3WScJnDVQqOGO9DXzmLDOzOFXgjj5ZGRBeNQF9RJV0CFPsTD CkBETsFBedLQMsMLV9JHd7CSEzTVIwRU8ZHkNjYPGx XKV0XBCuFIGqGWYstu8BZEYxXHI5NiK6PNHhPVUnTHXnTQfpYOLdZIP8NEj2WLHsQUFpKX5CBjHuCVWk LWB6BTpmGDWiJSNhib3SGLLcCTM5UhQ1ItKjRIQwPMKwUMtvEQNiZKB3MhL9ZELeVYAnEN1RLnKrVXkj HHIVAqw9CJizT1h6HTR0UG4QU9Thi2IcSIgkCTEQBD pvJJ4swfDmQLGnFu0BK1yIEggmW9TdMyQ3NMXgXAY3EoZqXDEbMBEmFbB2FeWpCKp9FM8wYCZdZBTxTZ H5IRSqEDreUVI6FJFrQ7JfABXhFWGbUJnbXiKkFZ2KSz2VZpU1FMD8bJBuSo5GZGa1OSZWLbBhMA7TTA o= ID Date Data Source [id number] 12/28/2020 11:11:00 PM EDT [facility] Name Value Range Interpretation Code Description Data Radha rce(s) Supporting Document(s) SARS-CoV-2 RNA 2019 nCoV Real-Time RT-PCR: NOT DETECTED [facility] This lab was ordered by [facility] and reported by [facility]. 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 [facility] Patient has symptoms related to condition [facility] When did you start to experience these symptoms [Date and time] [Phen X] [facility] Patient was hospitalized because of this condition [facility] patient was admitted to ICU for condition [facility] Patient resides in a congregate care setting [facility] status [facility] ID Date Data Source [id number] 12/29/2020 01:55:50 AM EDT [facility] Service Cmnt XXX-Imp : NoneRespiratory P CR Panel : PCR ResultsMicroorganism XXX Cult : See Labs Tab for 2019 nCoV RT-PCR resultsHAdV DNA QI DORIS+non-probe : Not DetectedHCoV 229ERNA Nph QI DORIS+non-probe : Not DetectedHCoV UVK7HZL Nph QI DORIS+non-probe : Not GbmsnvoeMTvZIH06 RNA Nph QI DORIS+non-probe : Not ZqodwibuSFrCFS94 RNA Upper resp QI DORIS+probe : Not DetectedhMPV RNA Nph QINAA+non-probe : Not DetectedRV+EV RNA Nph QI DORIS+non-probe : Not DetectedFLUAV RNA Nph QI DORIS+ non-probe : Not DetectedFLUBV RNA Nph QI DORIS+non-probe : Not DetectedHPIV1 RNA NphQINAA+non-probe : Not DetectedHPIV2 RNA Nph QINAA+non-probe : Not DetectedHPVI3 RNA Nph DORIS+non-probe : Not DetectedHPIV4 RNA Nph Q DORIS+non-probe : Not DetectedRSV RNA Nph Q DORIS+non-probe : Not DetectedB pert.PT PrmtNph Q DORIS+non-probe : Not DetectedC pneum DNA Nph Q DORIS+non-probe : Not DetectedM pneum DNA Nph Q DORIS+non-probe : Not DetectedB famhgRN786 DNA Nph DORIS+non-probe : Not Detected Name Value Range Interpretation Code Description Data Radha rce(s) Supporting Document(s) ID Date Data Source [id number] 12/28/2020 10:16:52 PM EDT [facility] XR CHEST FRONTAL ONLY [id number] RESULTI nterpreted by:Carlitos Sinclair, DOPROCEDURE INFORMATION: Exam: XR Chest Exam date and [...] THIS DOCUMENT HAS BEEN ELECTRONICALLY SIGNED BY CARLITOS SINCLAIR MDThis document has been electronically signed by Carlitos Sinclair DO on 12/28/2020 10:16 PM Name Value Range Interpretation Code Description Data Radha rce(s) Supporting Document(s) ID Date Data Source [id number] 01/02/2021 01:48:40 PM [facility] Service Cmnt XXX-Imp : L ACMicroorganism XXX Cult : No growth 5 days Name Value Range Interpretation Code Description Data Radha rce(s) Supporting Document(s) ID Date Data Source [id number] 12/28/2020 10:51:01 PM [facility] Name Value Range Interpretation Code Description Data Radha rce(s) Supporting Document(s) Lamotrigine [Mass/volume] in Serum or Plasma 5.3 ug/mL 3.0-14.0 [facility] ID Date Data Source [id number] 12/28/2020 10:51:01 PM [facility] Name Value Range Interpretation Code Description Data Radha rce(s) Supporting Document(s) Levetiracetam [Mass/volume] in Serum or Plasma 19 ug/mL 12-46 [facility] ID Date Data Source [id number] 12/28/2020 10:20:52 PM [facility] Name Value Range Interpretation Code Description Data Radha rce(s) Supporting Document(s) Leukocytes [#/volume] in Blood by Automated count 7.1 10*3/uL 4-10 [facility] Erythrocytes [#/volume] in Blood by Automated count 4.13 10*6/uL 4.6- 6.1 L [facility] Hemoglobin [Mass/volume] in Blood 12.6 g/dL 13.5-18 L [facility] Hematocrit [Volume Fraction] of Blood by Automated count 37.3 % 4 1-53 L [facility] Erythrocyte mean corpuscular volume [Entitic volume] by Auto mated count 90.5 fL 80-96 [facility] Erythrocyte mean corpuscular hemoglobin [Entitic mass] by Automated count 30.6 pg 27-33 [facility] Erythrocyte mean corpuscular hemoglobin concentration [Mass/volume] by Automated count 33.8 g[facility].0[facility] width [Ratio] by Automated count 13.8 % 11.5-14.5 [facility] Platelets [#/volume] in Blood by Automated count 148 10*3/uL 150-400 L [facility] Differential cell count method - Blood [facility] Neutrophils/100 leukocytes in Blood by Automated count 84 % [facility] Lymphocytes/100 leukocytes in Blood by Automated count 7 % [facility] Monocytes/100 leukocytes in Blood by Automated count 9 % [facility] Eosinophils/100 leukocytes in Blood by Automated count 0 % [facility] Basophils/100 leukocytes in Blood by Automated count 0 % [facility] Neutrophils [#/volume] in Blood by Automated count 5.99 10*3/uL 1.8-7 .0 [facility] Lymphocytes [#/volume] in Blood by Automated count 0.47 10*3/uL 1.2-4 .0 L [facility] Monocytes [#/volume] in Blood by Automated count 0.65 10*3/uL 0-0.8 [facility] Eosinophils [#/volume] in Blood by Automated count 0.03 10*3/uL 0-0.5 [facility] Basophils [#/volume] in Blood by Automated count 0.02 10*3/uL 0-0.2 [facility] Nucleated erythrocytes/100 leukocytes [Ratio] in Blood by Automated count 0 /100{WBCs} 0-0 [facility] ID Date Data Source [id number] 12/28/2020 10:24:33 PM [facility] Value Range Interpretation Code Description Data Radha rce(s) Supporting Document(s) Erythrocyte sedimentation rate 17 mm/hr <20 [facility] ID Date Data Source [id number] 12/28/2020 10:45:13 PM EDT [facility] Name Value Range Interpretation Code Description Data Radha rce(s) Supporting Document(s) Albumin [Mass/volume] in Serum or Plasma by Bromocresol green (BCG) dye binding method 4.4 g/dL 3.5-5.2 [facility] Bilirubin.total [Mass/volume] in Serum or Plasma 0.2 mg/dL <1.2 [facility] Calcium [Mass/volume] in Serum or Plasma 9.1 mg/dL 8.8-10.2 [facility] Chloride [Moles/volume] in Serum or Plasma 103 mmol/L 98-107 [facility] Creatinine [Mass/volume] in Serum or Plasma 0.92 mg/dL 0.70-1.20 [facility] Glucose [Mass/volume] in Serum or Plasma 122 mg/dL 70-140 [facility] Alkaline phosphatase [Enzymatic activity/volume] in Serum or Plasma 123 U/L 40-129 [facility] Potassium [Moles/volume] in Serum or Plasma 4.4 mmol/L 3.4-5.1 [facility] Hemolyzed Protein [Mass/volume] in Serum or Plasma 6.9 g/dL 6.4-8.3 [facility] Sodium [Moles/volume] in Serum or Plasma 139 mmol/L 136-145 [facility] Aspartate aminotransferase [Enzymatic activity/volume] in Serum or Plasma 12 U/L <40 [facility] Urea nitrogen [Mass/volume] in Serum or Plasma 22 mg/dL 8-23 [facility] Osmolality of Serum or Plasma by calculation 293 mosm/kg 275-300 [facility] Creatinine/Urea nitrogen [Mass Ratio] in Serum or Plasma 24 [facility] Bicarbonate [Moles/volume] in Serum 25 mmol/L 22-29 [facility] Alanine aminotransferase [Enzymatic activity/volume] in Seru m or Plasma 12 U/L <41 [facility] Anion gap 3 in Serum or Plasma 11 mmol/L 8-15 [facility] Glomerular filtration rate/1.73 sq M pre dicted among non-blacks [Volume Rate/Area] in Serum or Plasma by Creatinine-based formula (MDRD) 87 mL/min/1.73m2 >60 [facility] Glomerular filtration rate/1.73 sq M pre dicted among blacks [Volume Rate/Area] in Serum or Plasma by Creatinine-based formula (MDRD) >60 [facility] ID Date Data Source [id number] 12/28/2020 10:45:13 PM EDT [facility] Name Value Range Interpretation Code Description Data Radha rce(s) Supporting Document(s) Phenobarbital [Mass/volume] in Serum or Plasma 30.2 ug/ml 15-40 [facility] ID Date Data Source [id number] 12/28/2020 10:45:13 PM EDT [facility] Name Value Range Interpretation Code Description Data Radha rce(s) Supporting Document(s) C reactive protein [Mass/volume] in Serum or Plasma 104.6 mg/L <8.0 H [facility] ID Date Data Source [id number] 12/28/2020 10:45:13 PM EDT [facility] Name Value Range Interpretation Code Description Data Radha rce(s) Supporting Document(s) Phenytoin [Mass/volume] in Serum or Plasma 16.4 ug/ml 10-20 [facility] ID Date Data Source [id number] 12/28/2020 01:34:00 PM EDT [facility] Name Value Range Interpretation Code Description Data Radha rce(s) Supporting Document(s) SARS-CoV-2 (COVID 19) NEGATIVE - SARS-CoV-2 (COVID19) [facility] This lab was ordered by [facility] a nd reported by [facility]. ID Date Data Source [id number] 11/22/2020 07:47:00 AM EDT [facility] (Tj Oshea MD) Name Value Range Interpretation Code Description Data Radha rce(s) Supporting Document(s) Laboratory test finding (navigational concept) 4.7 10 4 .0-10.0 Normal (applies to non-numeric results) [facility] (Tj Oshea MD) Laboratory test finding (navigational concept) 4.23 10 4 .30-6.10 Below low normal [facility] (Tj Oshea MD) Laboratory test finding (navigational concept) 12.6 g/dL 1 3.5-17.5 Below low normal [facility] (Tj Oshea MD) Laboratory test finding (navigational concept) 39.2 % 4 2.0-52.0 Below low normal [facility] (Tj Oshea MD) Laboratory test finding (navigational concept) 92.7 fl 8 0.0-96.0 Normal (applies to non-numeric results) [facility] (Tj Oshea MD) Laboratory test finding (navigational concept) 29.8 pg 2 7.0-33.0 Normal (applies to non-numeric results) [facility] (Tj Oshea MD) Laboratory test finding (navigational concept) 32.1 g/dL 3 2.0-36.5 Normal (applies to non-numeric results) [facility] (Tj Oshea MD) Laboratory test finding (navigational concept) 13.3 % 1 1.5-14.5 Normal (applies to non-numeric results) [facility] (Tj Oshea MD) Laboratory test finding (navigational concept) 43.5 % 3 6.0-66.0 Normal (applies to non-numeric results) [facility] (Tj Oshea MD) Laboratory test finding (navigational concept) 176 10 1 50-450 Normal (applies to non-numeric results) [facility] (Tj Oshea MD) Laboratory test finding (navigational concept) 37.4 % 2 4.0-44.0 Normal (applies to non-numeric results) [facility] (Tj Oshea MD) Laboratory test finding (navigational concept) 10.8 % 2.0-8.0 Above high normal [facility] (Tj Oshea MD) Laboratory test finding (navigational concept) 0.6 % 0 .0-1.0 Normal (applies to non-numeric results) [facility] (Tj Oshea MD) Laboratory test finding (navigational concept) 7.3 % 0.0-3.0 Above high normal [facility] (Tj Oshea MD) Laboratory test finding (navigational concept) 0.0 % 0 -0 Normal (applies to non- numeric results) [facility] (Tj Oshea MD) Laboratory test finding (navigational concept) 0.4 % 0 -3.0 Normal (applies to non-numeric results) [facility] (Tj Oshea MD) Laboratory test finding (navigational concept) 2.0 10 1 .5-8.5 Normal (applies to non-numeric results) [facility] (Tj Oshea MD) Laboratory test finding (navigational concept) 0.3 10 0 .0-0.5 Normal (applies to non-numeric results) [facility] (Tj Oshea MD) Laboratory test finding (navigational concept) 0.5 10 0 .0-0.8 Normal (applies to non-numeric results) [facility] (Tj Oshea MD) Laboratory test finding (navigational concept) 1.7 10 1 .5-5.0 Normal (applies to non-numeric results) [facility] (Tj Oshea MD) Laboratory test finding (navigational concept) 0.0 10 0 .0-0.2 Normal (applies to non-numeric results) [facility] (Tj Oshea MD) ID Date Data Source [id number] 11/22/2020 07:47:00 AM EDT [facility] (Tj Oshea MD) Name Value Range Interpretation Code Description Data Radha rce(s) Supporting Document(s) Laboratory test finding (navigational concept) 100 mg/dL 7 0-100 Normal (applies to non-numeric results) [facility] (Tj Oshea MD) Laboratory test finding (navigational concept) 0.94 mg/dL 0 .70-1.30 Normal (applies to non-numeric results) [facility] (Tj Oshea MD) Laboratory test finding (navigational concept) 15 mg/dL 7 -18 Normal (applies to non-numeric results) [facility] (Tj Oshea MD) Laboratory test finding (navigational concept) 143 meq/L 1 36-145 Normal (applies to non-numeric results) [facility] (Tj Oshea MD) Laboratory test finding (navigational concept) Laboratory test r esult Normal (applies to non-numeric results) [facility] (Tj Oshea MD) <content>Units are mL/min/1.73 m2</content>
<content></content>
<content>Chronic Kidney Disease Staging per NKF:</content>
<content></content>
<content>Stage I & II GFR >=60 Normal to Mildly Decreased</content>
<content>Stage III GFR 30- 59 Moderately Decreased</content>
<content>Stage IV GFR 15-29 Severely Decreased</content>
<content>Stage V GFR <15 Very Little GFR Left</content>
<content>ESRD GFR <15 on COMPUTER CONSULTANT</content>
<content></content> Laboratory test finding (navigational concept) 4.3 meq/L 3 .5-5.1 Normal (applies to non-numeric results) [facility] (Tj Oshea MD) Laboratory test finding (navigational concept) 108 meq/L 9 8-107 Above high normal [facility] (Tj Oshea MD) Laboratory test finding (navigational concept) 2 meq/L 8-16 Below low normal [facility] (Tj Oshea MD) Laboratory test finding (navigational concept) 33 meq/L 21-32 Above high normal [facility] (Tj Oshea MD) Laboratory test finding (navigational concept) 8.8 mg/dL 8 .8-10.2 Normal (applies to non-numeric results) [facility] (Tj Oshea MD) Laboratory test finding (navigational concept) 14 U/L 7 -37 Normal (applies to non-numeric results) [facility] (Tj Oshea MD) Laboratory test finding (navigational concept) 29 U/L 1 2-78 Normal (applies to non-numeric results) [facility] (Tj Oshea MD) Laboratory test finding (navigational concept) 150 U/L 45-117 Above high normal [facility] (Tj Oshea MD) Laboratory test finding (navigational concept) 0.2 mg/dL 0 .2-1.0 Normal (applies to non-numeric results) [facility] (Tj Oshea MD) Laboratory test finding (navigational concept) 6.9 GM/DL 6 .4-8.2 Normal (applies to non-numeric results) [facility] (Tj Oshea MD) Laboratory test finding (navigational concept) 4.0 GM/DL 3 .2-5.2 Normal (applies to non-numeric results) [facility] (Tj Oshea MD) Laboratory test finding (navigational concept) 1.4 Normal (applies to non- numeric results) [facility] (Tj Oshea MD) ID Date Data Source [id number] 11/22/2020 07:47:00 AM EDT [facility] (Tj Oshea MD) Name Value Range Interpretation Code Description Data Radha rce(s) Supporting Document(s) Phenytoin [Mass/volume] in Serum or Plasma 18.3 UG/ML 10.0- 20.0 Normal (applies to non-numeric results) [facility] (Tj Oshea MD) Phenobarbital [Mass/volume] in Serum or Plasma 32.8 UG/ML 1 5.0-40.0 Normal (applies to non-numeric results) [facility] (Tj Oshea MD) Levetiracetam [Mass/volume] in Serum or Plasma 27.6 ug/mL 1 0.0-40.0 Normal (applies to non-numeric results) [facility] (Tj Oshea MD) This test was developed and its performa nce characteristics determined by [facility]. It has not been cleared or approved by the Food and Drug Administration. Lamotrigine [Mass/volume] in Serum or Plasma 6.5 ug/mL 2.0 -20.0 Normal (applies to non-numeric results) [facility] (Tj Oshea MD) Detection Limit = 1.0 Performed at: [address] [id number] [employer]: Nomi Barrett MD, Phone: [phone] ID Date Data Source [id number] 11/22/2020 07:47:00 AM EDT [facility] (Tj Oshea MD) Name Value Range Interpretation Code Description Data Radha rce(s) Supporting Document(s) Ammonia [Mass/volume] in Blood 21 uMOL/L N ormal (applies to non-numeric results) [facility] (Tj Oshea MD) ID Date Data Source [id number] 11/22/2020 07:47:00 AM EDT [facility] ([facility]) Name Value Range Interpretation Code Description Data Radha rce(s) Supporting Document(s) Levetiracetam [Mass/volume] in Serum or Plasma 27.6 ug/mL 10.0-40.0 [facility] ([facility] ) This test was developed and its performa nce characteristics determined by [facility]. It has not been cleared or approved by the Food and Drug Administration. Phenytoin [Mass/volume] in Serum or Plasma 18.3 UG/ML 10.0-20.0 [facility] ([facility]) Phenobarbital [Mass/volume] in Serum or Plasma 32.8 UG/ML 15.0-40.0 [facility] ([facility]) Lamotrigine [Mass/volume] in Serum or Plasma 6.5 ug/mL 2.0-20.0 [facility] ([facility]) Detection Limit = 1.0 Performed at: [employer] [id number]: Nomi Barrett MD, Phone: [phone] ID Date Data Source [id number] 11/22/2020 07:47:00 AM EDT [facility] ([facility]) Name Value Range Interpretation Code Description Data Radha rce(s) Supporting Document(s) Glucose, Fasting 100 mg/dL 70-100 [facility] ([facility]) Blood Urea Nitrogen 15 mg/dL 7-18 [facility] ([facility]) Sodium Level 143 meq/L 136-145 [facility] ([facility]) Glomerular Filtration Rate Laboratory test result [facility] ([facility]) <content>Units are mL/min/1.73 m2</content>
<content></content>
<content>Chronic Kidney Disease Staging per NKF:</content>
<content></content>
<content>Stage I & II GFR >=60 Normal to Mildly Decreased</content>
<content>Stage III GFR 30- 59 Moderately Decreased</content>
<content>Stage IV GFR 15-29 Severely Decreased</content>
<content>Stage V GFR <15 Very Little GFR Left</content>
<content>ESRD GFR <15 on COMPUTER CONSULTANT</content>
<content></content> Creatinine For GFR 0.94 mg/dL 0.70-1.30 [facility] ([facility]) Potassium Serum 4.3 meq/L 3.5-5.1 [facility] ([facility]) Chloride Level 108 meq/L 98-107 [facility] ([facility]) Carbon Dioxide Level 33 meq/L 21-32 [facility] ([facility]) Anion Gap 2 meq/L 8-16 [facility] ([facility]) Ast/Sgot 14 U/L 7-37 [facility] ([facility]) Alt/SGPT 29 U/L 12-78 [facility] ([facility]) Calcium Level 8.8 mg/dL 8.8-10.2 [facility] ([facility]) Bilirubin,Total 0.2 mg/dL 0.2-1.0 [facility] ([facility]) Total Protein 6.9 GM/DL 6.4-8.2 [facility] ([facility]) Alkaline Phosphatase 150 U/L 45-117 [facility] ([facility]) Albumin/Globulin Ratio 1.4 [facility] ([facility]) Albumin 4.0 GM/DL 3.2-5.2 [facility] ([facility]) ID Date Data Source [id number] 11/22/2020 07:47:00 AM EDT [facility] ([facility]) Name Value Range Interpretation Code Description Data Radha rce(s) Supporting Document(s) Ammonia [Mass/volume] in Blood 21 uMOL/L [facility] ([facility]) ID Date Data Source [id number] 11/22/2020 07:47:00 AM EDT [facility] ([facility]) Name Value Range Interpretation Code Description Data Radha rce(s) Supporting Document(s) White Blood Count 4.7 10 4.0-10.0 [facility] ([facility]) Hemoglobin 12.6 g/dL 13.5-17.5 [facility] ([facility]) Red Blood Count 4.23 10 4.30-6.10 [facility] ([facility]) Hematocrit 39.2 % 42.0-52.0 [facility] ([facility]) Mean Corpuscular Volume 92.7 fl 80.0-96.0 M [facility] ([facility]) Mean Corpuscular Hemoglobin 29.8 pg 27.0-33.0 [facility] ([facility]) Red Cell Distribution Width 13.3 % 11.5-14.5 [facility] ([facility]) Mean Corpuscular HGB Conc 32.1 g/dL 32.0-36.5 [facility] ([facility]) Neutrophils % 43.5 % 36.0-66.0 [facility] ([facility]) Platelet Count, Automated 176 10 150-450 [facility] ([facility]) [place] % 10.8 % 2.0-8.0 [facility] ([facility]) Lymph % 37.4 % 24.0-44.0 [facility] ([facility]) Eos % 7.3 % 0.0-3.0 [facility] ([facility]) Immature Granulocyte % 0.4 % 0-3.0 [facility] ([facility]) Baso % 0.6 % 0.0-1.0 [facility] ([facility]) Neutrophils # 2.0 10 1.5-8.5 [facility] ([facility]) Nucleated Red Blood Cell % 0.0 % 0-0 [facility] ([facility]) Lymph # 1.7 10 1.5-5.0 [facility] ([facility]) Eos # 0.3 10 0.0-0.5 [facility] ([facility]) [place] # 0.5 10 0.0-0.8 [facility] ([facility]) Baso # 0.0 10 0.0-0.2 [facility] ([facility]) ID Date Data Source [id number] 09/27/2020 10:07:00 AM EDT [facility] (Tj Oshea MD) Name Value Range Interpretation Code Description Data Radha rce(s) Supporting Document(s) Phenytoin [Mass/volume] in Serum or Plasma 19.7 UG/ML 10.0- 20.0 Normal (applies to non-numeric results) [facility] (Tj Oshea MD) Ammonia [Mass/volume] in Blood 22 uMOL/L N ormal (applies to non-numeric results) [facility] (Tj Oshea MD) Levetiracetam [Mass/volume] in Serum or Plasma 21.1 ug/mL 1 0.0-40.0 Normal (applies to non-numeric results) [facility] (Tj Oshea MD) This test was developed and its performa nce characteristics determined by [facility]. It has not been cleared or approved by the Food and Drug Administration. Phenobarbital [Mass/volume] in Serum or Plasma 33.4 UG/ML 1 5.0-40.0 Normal (applies to non-numeric results) [facility] (Tj Oshea MD) Lamotrigine [Mass/volume] in Serum or Plasma 6.5 ug/mL 2.0 -20.0 Normal (applies to non-numeric results) [facility] (Tj Oshea MD) Detection Limit = 1.0 Performed at: [address] [id number]: Nomi Barrett MD, Phone: [phone] ID Date Data Source [id number] 09/27/2020 10:07:00 AM EDT [facility] (Tj Oshea MD) Name Value Range Interpretation Code Description Data Radha rce(s) Supporting Document(s) Laboratory test finding (navigational concept) 5.7 % Normal (applies to non- numeric results) [facility] (Tj Oshea MD) <content>REFERENCE RANGES:</content><br/ ><content></content>
<content><=5.6% NORMAL</content>
<content>5.7-6.4% SUGGESTS IMPAIRED GLUCOSE METABOLISM/PREDIABETIC</content>
<content>>= 6.5% ABNORMAL</content>
<content></content> Laboratory test finding (navigational concept) 117 mg/dL 6 0-110 Above high normal [facility] (Tj Oshea MD) ID Date Data Source [id number] 09/27/2020 10:07:00 AM EDT [facility] (Tj Oshea MD) Name Value Range Interpretation Code Description Data Radha rce(s) Supporting Document(s) Laboratory test finding (navigational concept) 2.130 uIU/ML 0 .358-3.740 Normal (applies to non-numeric results) [facility] (Tj Oshea MD) Laboratory test finding (navigational concept) 0.48 ng/dL 0 .76-1.46 Below low normal [facility] (Tj Oshea MD) ID Date Data Source [id number] 09/27/2020 10:07:00 AM EDT [facility] (Tj Oshea MD) Name Value Range Interpretation Code Description Data Radha rce(s) Supporting Document(s) Laboratory test finding (navigational concept) 156 mg/dL Normal (applies to non-numeric results) [facility] (Tj Oshea MD) Laboratory test finding (navigational concept) 109 mg/dL Normal (applies to non-numeric results) [facility] (Tj Oshea MD) Laboratory test finding (navigational concept) 56 mg/dL Normal (applies to non-numeric results) [facility] (Tj Oshea MD) Laboratory test finding (navigational concept) 78 mg/dL Normal (applies to non-numeric results) [facility] (Tj Oshea MD) Laboratory test finding (navigational concept) 2.785 Normal (applies to non- numeric results) [facility] (Tj Oshea MD) Laboratory test finding (navigational concept) 100 mg/dL Normal (applies to non-numeric results) [facility] (Tj Oshea MD) ID Date Data Source [id number] 09/27/2020 10:07:00 AM EDT [facility] (Tj Oshea MD) Name Value Range Interpretation Code Description Data Radha rce(s) Supporting Document(s) Laboratory test finding (navigational concept) 106 mg/dL 7 0-100 Above high normal [facility] (Tj Oshea MD) Laboratory test finding (navigational concept) 14 mg/dL 7 -18 Normal (applies to non-numeric results) [facility] (Tj Oshea MD) Laboratory test finding (navigational concept) 0.81 mg/dL 0 .70-1.30 Normal (applies to non-numeric results) [facility] (Tj [...] Little GFR Left</content>
<content>ESRD GFR <15 on COMPUTER CONSULTANT</content>
<content></content> Laboratory test finding (navigational concept) 139 meq/L 1 36-145 Normal (applies to non-numeric results) [facility] (Tj Oshea MD) Laboratory test finding (navigational concept) 4.5 meq/L 3 .5-5.1 Normal (applies to non-numeric results) [facility] (Tj Oshea MD) Laboratory test finding (navigational concept) 104 meq/L 9 8-107 Normal (applies to non-numeric results) [facility] (Tj Oshea MD) Laboratory test finding (navigational concept) 33 meq/L 21-32 Above high normal [facility] (Tj Oshea MD) Laboratory test finding (navigational concept) 2 meq/L 8-16 Below low normal [facility] (Tj Oshea MD) Laboratory test finding (navigational concept) 9.0 mg/dL 8 .8-10.2 Normal (applies to non-numeric results) [facility] (Tj Oshea MD) Laboratory test finding (navigational concept) 10 U/L 7 -37 Normal (applies to non-numeric results) [facility] (Tj Oshea MD) Laboratory test finding (navigational concept) 21 U/L 1 2-78 Normal (applies to non-numeric results) [facility] (Tj Oshea MD) Laboratory test finding (navigational concept) 134 U/L 45-117 Above high normal [facility] (Tj Oshea MD) Laboratory test finding (navigational concept) 0.3 mg/dL 0 .2-1.0 Normal (applies to non-numeric results) [facility] (Tj Oshea MD) Laboratory test finding (navigational concept) 3.9 GM/DL 3 .2-5.2 Normal (applies to non-numeric results) [facility] (Tj Oshea MD) Laboratory test finding (navigational concept) 6.9 GM/DL 6 .4-8.2 Normal (applies to non-numeric results) [facility] (Tj Oshea MD) Laboratory test finding (navigational concept) 1.3 Normal (applies to non- numeric results) [facility] (Tj Oshea MD) ID Date Data Source [id number] 09/27/2020 10:07:00 AM EDT [facility] (Tj Oshea MD) Name Value Range Interpretation Code Description Data Radha rce(s) Supporting Document(s) Laboratory test finding (navigational concept) 4.36 10 4 .30-6.10 Normal (applies to non-numeric results) [facility] (Tj Oshea MD) Laboratory test finding (navigational concept) 4.9 10 4 .0-10.0 Normal (applies to non-numeric results) [facility] (Tj Oshea MD) Laboratory test finding (navigational concept) 12.7 g/dL 1 3.5-17.5 Below low normal [facility] (Tj Oshea MD) Laboratory test finding (navigational concept) 40.0 % 4 2.0-52.0 Below low normal [facility] (Tj Oshea MD) Laboratory test finding (navigational concept) 91.7 fl 8 0.0-96.0 Normal (applies to non-numeric results) [facility] (Tj Oshea MD) Laboratory test finding (navigational concept) 29.1 pg 2 7.0-33.0 Normal (applies to non-numeric results) [facility] (Tj Oshea MD) Laboratory test finding (navigational concept) 31.8 g/dL 3 2.0-36.5 Below low normal [facility] (Tj Oshea MD) Laboratory test finding (navigational concept) 13.7 % 1 1.5-14.5 Normal (applies to non-numeric results) [facility] (Tj Oshea MD) Laboratory test finding (navigational concept) 168 10 1 50-450 Normal (applies to non-numeric results) [facility] (Tj Oshea MD) Laboratory test finding (navigational concept) 56.4 % 3 6.0-66.0 Normal (applies to non-numeric results) [facility] (Tj Oshea MD) Laboratory test finding (navigational concept) 27.0 % 2 4.0-44.0 Normal (applies to non-numeric results) [facility] (Tj Oshea MD) Laboratory test finding (navigational concept) 6.5 % 0.0-3.0 Above high normal [facility] (Tj Oshea MD) Laboratory test finding (navigational concept) 9.3 % 2.0-8.0 Above high normal [facility] (Tj Oshea MD) Laboratory test finding (navigational concept) 0.8 % 0 .0-1.0 Normal (applies to non-numeric results) [facility] (Tj Oshea MD) Laboratory test finding (navigational concept) 0.0 % 0 -3.0 Normal (applies to non-numeric results) [facility] (Tj Oshea MD) Laboratory test finding (navigational concept) 0.0 % 0 -0 Normal (applies to non- numeric results) [facility] (Tj Oshea MD) Laboratory test finding (navigational concept) 1.3 10 1.5-5.0 Below low normal [facility] (Tj Oshea MD) Laboratory test finding (navigational concept) 2.8 10 1 .5-8.5 Normal (applies to non-numeric results) [facility] (Tj Oshea MD) Laboratory test finding (navigational concept) 0.3 10 0 .0-0.5 Normal (applies to non-numeric results) [facility] (Tj Oshea MD) Laboratory test finding (navigational concept) 0.5 10 0 .0-0.8 Normal (applies to non-numeric results) [facility] (Tj Oshea MD) Laboratory test finding (navigational concept) 0.0 10 0 .0-0.2 Normal (applies to non-numeric results) [facility] (Tj Oshea MD) ID Date Data Source [id number] 09/27/2020 10:07:00 AM EDT [facility] ([facility], ) Name Value Range Interpretation Code Description Data Radha rce(s) Supporting Document(s) Phenytoin [Mass/volume] in Serum or Plasma 19.7 UG/ML 10.0-20.0 [facility] ([facility], ) Ammonia [Mass/volume] in Blood 22 uMOL/L [facility] ([facility], ) Phenobarbital [Mass/volume] in Serum or Plasma 33.4 UG/ML 15.0-40.0 [facility] ([facility], ) Lamotrigine [Mass/volume] in Serum or Plasma 6.5 ug/mL 2.0-20.0 [facility] ([facility]) Detection Limit = 1.0 Performed at: [address] [id number]ge Hand: Nomi Barrett MD, Phone: [phone] Levetiracetam [Mass/volume] in Serum or Plasma 21.1 ug/mL 10.0-40.0 [facility] ([facility], ) This test was developed and its performa nce characteristics determined by [facility]. It has not been cleared or approved by the Food and Drug Administration. ID Date Data Source [id number] 09/12/2020 07:20:00 AM EDT [facility] (Tj Oshea MD) Name Value Range Interpretation Code Description Data Radha rce(s) Supporting Document(s) Laboratory test finding (navigational concept) Laboratory test r esult Above high normal [facility] (Tj Oshea MD) Laboratory test finding (navigational concept) Laboratory test r esult Normal (applies to non-numeric results) [facility] (Tj Oshea MD) Laboratory test finding (navigational concept) 1.019 1 .002-1.035 Normal (applies to non-numeric results) [facility] (Tj Oshea MD) Laboratory test finding (navigational concept) 7.0 units 5 .0-9.0 Normal (applies to non-numeric results) [facility] (Tj Oshea MD) Laboratory test finding (navigational concept) Laboratory test r esult Above high normal [facility] (Tj Oshea MD) Laboratory test finding (navigational concept) Laboratory test r esult Normal (applies to non-numeric results) [facility] (Tj Oshea MD) Laboratory test finding (navigational concept) 0.2 mg/dL 0 .0-2.0 Normal (applies to non-numeric results) [facility] (Tj Oshea MD) Laboratory test finding (navigational concept) Laboratory test r esult Normal (applies to non-numeric results) [facility] (Tj Oshea MD) Laboratory test finding (navigational concept) Laboratory test r esult Normal (applies to non-numeric results) [facility] (Tj Oshea MD) Laboratory test finding (navigational concept) Laboratory test r esult Normal (applies to non-numeric results) [facility] (Tj Oshea MD) Laboratory test finding (navigational concept) Laboratory test r esult Above high normal [facility] (Tj Oshea MD) Laboratory test finding (navigational concept) Laboratory test r esult Above high normal [facility] (Tj Oshea MD) Laboratory test finding (navigational concept) Laboratory test r esult 0-3 Above high normal [facility] (Tj Oshea MD) Laboratory test finding (navigational concept) 32 /HPF 0-3 Above high normal [facility] (Tj Oshea MD) Laboratory test finding (navigational concept) Laboratory test r esult Normal (applies to non-numeric results) [facility] (Tj Oshea MD) Laboratory test finding (navigational concept) 0 /HPF 0 -6 Normal (applies to non-numeric results) [facility] (Tj Oshea MD) Laboratory test finding (navigational concept) 0 /LPF 0 -1 Normal (applies to non-numeric results) [facility] (Tj Oshea MD) Laboratory test finding (navigational concept) Laboratory test r esult Normal (applies to non-numeric results) [facility] (Tj Oshea MD) ID Date Data Source [id number] 09/12/2020 07:20:00 AM EDT [facility] (Tj Oshea MD) Name Value Range Interpretation Code Description Data Radha rce(s) Supporting Document(s) Laboratory test finding (navigational concept) Laboratory test r esult Normal (applies to non-numeric results) [facility] (Tj Oshea MD) FULL REPORT IN LAB NOTES (eCW and [facility] ). NO GROWTH CLINICAL SIGNIFICANCE 1 ORGANISM ID Date Data Source [id number] 06/10/2020 03:25:00 PM EST [facility] (Tj Oshea MD) Name Value Range Interpretation Code Description Data Radha rce(s) Supporting Document(s) Bacteria identified in Blood by Culture Laboratory test result [facility] (Tj Oshea MD) No growth after 72 hours . All specimens observed for 5 days. Results final at that time. No growth after 48 hours . All specimens observed for 5 days. Results final at that time. No growth after 24 hours . All specimens observed for 5 days. Results final at that time. NO GROWTH AFTER 5 DAYS ID Date Data Source [id number] 06/10/2020 03:25:00 PM EST [facility] (Tj Oshea MD) Name Value Range Interpretation Code Description Data Radha rce(s) Supporting Document(s) Laboratory test finding (navigational concept) Laboratory test r esult Normal (applies to non-numeric results) [facility] (Tj Oshea MD) <content>FULL REPORT IN LAB NOTES (eCW a nd [facility]).</content>
<content></content>
<content>ORGANISM 1: STAPH.AUREUS METHICILLIN RESIS</content>
<content></content>
<content>QUANTITY OF GROWTH MODERATE</content>
<content></content>
<content></content>
<content> ORGANISM 1: STAPH.AUREUS METHICILLIN RESIS</content>
<content></content>
<content>STAPH.AUREUS METHICILLIN RESIS: REACTION</content>
<content>ICR (INDUCIBLE CC RESISTANCE) IV ICR TEST RESULT</content>
<content>TETRACYCLINE PO 250 mg qid <=1 S</content>
<content>PENICILLIN G IV 1 mu q6H >=0.5 R</content>
<content>PENICILLIN G IV 1 mu q6h >=0.5 R</content>
<content>PENICILLIN G PO 250mg q6h fasting >=0.5 R</content>
<content> TRIMETHOPRIM/SULFAMETHOXAZOLE IV 160mg TMP & 800mg SMXq6h <=10 S</content>
<content>TRIMETHOPRIM/SULFAMETHOXAZOLE PO Bactrim DS Bid <=10 S</content>
<content>ERYTHROMYCIN IV 500mg q6h >=8 R</content>
<content>ERYTHROMYCIN PO 500mg q6h >=8 R</content>
<content>GENTAMICIN IV 80mg q8h <=0.5 S</content>
<content>CLINDAMYCIN IV 600mg q6h 0.25 S</content>
<content>CLINDAMYCIN PO 150mg q6h 0.25 S</content>
<content>OXACILLIN IV 500mg q6h >=4 R</content>
<content>VANCOMYCIN IV 500mg q8h 1 S</content>
<content>LINEZOLID (ZYVOX) IV 600MG Q12HR 2 S</content>
<content> LINEZOLID (ZYVOX) PO 600MG Q12HR 2 S</content>
<content>An isolate with a (+) POSITIVE ICR test is considered</content>
<content>CLINDAMYCIN RESISTANT; however, clindamycin may still</content>
<content>be effective in some patients.</content>
<content>An isolate with a (-) NEGATIVE ICR test is considered</content>
<content>CLIDAMYCIN SENSITIVE.</content>
<content></content> Laboratory test finding (navigational concept) Laboratory test r esult Normal (applies to non-numeric results) [facility] (Tj Oshea MD) NO CELLS SEEN NO ORGANISMS SEEN ID Date Data Source [id number] 06/10/2020 03:25:00 PM EST [facility] (Tj Oshea MD) Name Value Range Interpretation Code Description Data Radha rce(s) Supporting Document(s) Phenytoin [Mass/volume] in Serum or Plasma 15.2 UG/ML 10.0- 20.0 Normal (applies to non-numeric results) [facility] (Tj Oshea MD) Phenobarbital [Mass/volume] in Serum or Plasma 28.8 UG/ML 1 5.0-40.0 Normal (applies to non-numeric results) [facility] (Tj Oshea MD) ID Date Data Source [id number] 06/10/2020 03:25:00 PM EST [facility] (Tj Oshea MD) Name Value Range Interpretation Code Description Data Radha rce(s) Supporting Document(s) Laboratory test finding (navigational concept) 14 mg/dL 7 -18 Normal (applies to non-numeric results) [facility] (Tj Oshea MD) Laboratory test finding (navigational concept) 154 mg/dL 7 0-100 Above high normal [facility] (Tj Oshea MD) Laboratory test finding (navigational concept) 0.87 mg/dL 0 .70-1.30 Normal (applies to non-numeric results) [facility] (Tj Oshea MD) Laboratory test finding (navigational concept) Laboratory test r esult Normal (applies to non-numeric results) [facility] (Tj Oshea MD) <content>Units are mL/min/1.73 m2</content>
<content></content>
<content>Chronic Kidney Disease Staging per NKF:</content>
<content></content>
<content>Stage I & II GFR >=60 Normal to Mildly Decreased</content>
<content>Stage III GFR 30- 59 Moderately Decreased</content>
<content>Stage IV GFR 15-29 Severely Decreased</content>
<content>Stage V GFR <15 Very Little GFR Left</content>
<content>ESRD GFR <15 on COMPUTER CONSULTANT</content>
<content></content> Laboratory test finding (navigational concept) 4.6 meq/L 3 .5-5.1 Normal (applies to non-numeric results) [facility] (Tj Oshea MD) Laboratory test finding (navigational concept) 136 meq/L 1 36-145 Normal (applies to non-numeric results) [facility] (Tj Oshea MD) Laboratory test finding (navigational concept) 30 meq/L 2 1-32 Normal (applies to non-numeric results) [facility] (Tj Oshea MD) Laboratory test finding (navigational concept) 100 meq/L 9 8-107 Normal (applies to non-numeric results) [facility] (Tj Oshea MD) Laboratory test finding (navigational concept) 8.9 mg/dL 8 .8-10.2 Normal (applies to non-numeric results) [facility] (Tj Oshea MD) Laboratory test finding (navigational concept) 6 meq/L 8-16 Below low normal [facility] (Tj Oshea MD) ID Date Data Source [id number] 06/10/2020 03:25:00 PM EST [facility] (Tj Oshea MD) Name Value Range Interpretation Code Description Data Radha rce(s) Supporting Document(s) Laboratory test finding (navigational concept) 10.1 10 4 .0-10.0 Above high normal [facility] (Tj Oshea MD) Laboratory test finding (navigational concept) 12.7 g/dL 1 3.5-17.5 Below low normal [facility] (Tj Oshea MD) Laboratory test finding (navigational concept) 4.32 10 4 .30-6.10 Normal (applies to non-numeric results) [facility] (Tj Oshea MD) Laboratory test finding (navigational concept) 91.7 fl 8 0.0-96.0 Normal (applies to non-numeric results) [facility] (Tj Oshea MD) Laboratory test finding (navigational concept) 39.6 % 4 2.0-52.0 Below low normal [facility] (Tj Oshea MD) Laboratory test finding (navigational concept) 29.4 pg 2 7.0-33.0 Normal (applies to non-numeric results) [facility] (Tj Oshea MD) Laboratory test finding (navigational concept) 32.1 g/dL 3 2.0-36.5 Normal (applies to non-numeric results) [facility] (Tj Oshea MD) Laboratory test finding (navigational concept) 190 10 1 50-450 Normal (applies to non-numeric results) [facility] (Tj Oshea MD) Laboratory test finding (navigational concept) 14.0 % 1 1.5-14.5 Normal (applies to non-numeric results) [facility] (Tj Oshea MD) Laboratory test finding (navigational concept) 73.3 % 3 6.0-66.0 Above high normal [facility] (Tj Oshea MD) Laboratory test finding (navigational concept) 12.8 % 2 4.0-44.0 Below low normal [facility] (Tj Oshea MD) Laboratory test finding (navigational concept) 11.5 % 2.0-8.0 Above high normal [facility] (Tj Oshea MD) Laboratory test finding (navigational concept) 1.7 % 0 .0-3.0 Normal (applies to non-numeric results) [facility] (jT Oshea MD) Laboratory test finding (navigational concept) 0.3 % 0 .0-1.0 Normal (applies to non-numeric results) [facility] (Tj Oshea MD) Laboratory test finding (navigational concept) 0.4 % 0 -3.0 Normal (applies to non-numeric results) [facility] (Tj Oshea MD) Laboratory test finding (navigational concept) 7.4 10 1 .5-8.5 Normal (applies to non-numeric results) [facility] (Tj Oshea MD) Laboratory test finding (navigational concept) 0.0 % 0 -0 Normal (applies to non- numeric results) [facility] (Tj Oshea MD) Laboratory test finding (navigational concept) 1.2 10 0.0-0.8 Above high normal [facility] (Tj Oshea MD) Laboratory test finding (navigational concept) 1.3 10 1.5-5.0 Below low normal [facility] (Tj Oshea MD) Laboratory test finding (navigational concept) 0.0 10 0 .0-0.2 Normal (applies to non-numeric results) [facility] (Tj Oshea MD) Laboratory test finding (navigational concept) 0.2 10 0 .0-0.5 Normal (applies to non-numeric results) [facility] (Tj Oshea MD) ID Date Data Source [id number] 05/09/2020 09:06:00 AM EST [facility] ([facility], ) Name Value Range Interpretation Code Description Data Radha rce(s) Supporting Document(s) Phenytoin [Mass/volume] in Serum or Plasma 18.2 UG/ML 10.0-20.0 [facility] ([facility], ) Lamotrigine [Mass/volume] in Serum or Plasma 7.8 ug/mL 2.0-20.0 [facility] ([facility], ) Testing on this sample was performed by homogeneous enzyme immunoassay. Detection Limit = 1.0 Performed at: [facility] [id number] Hand: Nomi Barrett MD, Phone: [phone] Performed at: [facility] [address] [place] [address] [id number] Hand: Jihan Mena [facility], Phone: [phone] Levetiracetam [Mass/volume] in Serum or Plasma 27.7 ug/mL 10.0-40.0 [facility] ([facility], ) This test was developed and its performa nce characteristics determined by [facility]. It has not been cleared or approved by the Food and Drug Administration. ID Date Data Source [id number] 05/03/2020 01:05:00 AM EST [facility] Name Value Range Interpretation Code Description Data Radha rce(s) Supporting Document(s) SARS coronavirus 2 RNA [Presence] in Res piratory specimen by DORIS with probe detection POSITIVE [facility] This lab was ordered by [facility] a nd reported by [facility]. ID Date Data Source [id number] 04/17/2020 02:13:00 PM EST [facility] Name Value Range Interpretation Code Description Data Radha rce(s) Supporting Document(s) SARS coronavirus 2 RNA [Presence] in Res piratory specimen by DORIS with probe detection [facility] This lab was ordered by [facility] a nd reported by [facility]. ID Date Data Source [id number] 03/02/2020 09:01:00 AM EST [facility] (Tj Oshea MD) Name Value Range Interpretation Code Description Data Radha rce(s) Supporting Document(s) Laboratory test finding (navigational concept) 1.560 uIU/ML 0 .358-3.740 Normal (applies to non-numeric results) [facility] (Tj Oshea MD) Laboratory test finding (navigational concept) 0.48 ng/dL 0 .76-1.46 Below low normal [facility] (Tj Oshea MD) ID Date Data Source [id number] 03/02/2020 09:01:00 AM EST [facility] (Tj Oshea MD) Name Value Range Interpretation Code Description Data Radha rce(s) Supporting Document(s) Prostate specific Ag [Mass/volume] in Serum or Plasma 0.04 ng/mL Normal (applies to non-numeric results) [facility] (Tj Oshea MD) The PSA assay is performed on the [employer] analyzer by [employer] sandwich chemiluminescent immunoassay and should not be compared interchangeably with other methods. It should not be used alone as a screening test or diagnosis for the presence or absence of malignant disease. Predictions of disease recurrence should not be based solely on values obtained from serial patient serum values. ID Date Data Source [id number] 03/02/2020 09:01:00 AM EST [facility] (Tj Oshea MD) Name Value Range Interpretation Code Description Data Radha rce(s) Supporting Document(s) Laboratory test finding (navigational concept) 153 mg/dL Normal (applies to non-numeric results) [facility] (Tj Oshea MD) Laboratory test finding (navigational concept) 151 mg/dL Above high normal [facility] (Tj Oshea MD) Laboratory test finding (navigational concept) 53 mg/dL Normal (applies to non-numeric results) [facility] (Tj Oshea MD) Laboratory test finding (navigational concept) 70 mg/dL Normal (applies to non-numeric results) [facility] (Tj Oshea MD) Laboratory test finding (navigational concept) 100 mg/dL Normal (applies to non-numeric results) [facility] (Tj Oshea MD) Laboratory test finding (navigational concept) 2.886 Normal (applies to non- numeric results) [facility] (Tj Oshea MD) ID Date Data Source [id number] 03/02/2020 09:01:00 AM EST [facility] (Tj Oshea MD) Name Value Range Interpretation Code Description Data Radha rce(s) Supporting Document(s) Laboratory test finding (navigational concept) 105 mg/dL 7 0-100 Above high normal [facility] (Tj Oshea MD) Laboratory test finding (navigational concept) 1.04 mg/dL 0 .70-1.30 Normal (applies to non-numeric results) [facility] (Tj Oshea MD) Laboratory test finding (navigational concept) 14 mg/dL 7 -18 Normal (applies to non-numeric results) [facility] (Tj Oshea MD) Laboratory test finding (navigational concept) 142 meq/L 1 36-145 Normal (applies to non-numeric results) [facility] (Tj Oshea MD) Laboratory test finding (navigational concept) Laboratory test r esult Normal (applies to non-numeric results) [facility] (Tj Oshea MD) <content>Units are mL/min/1.73 m2</content>
<content></content>
<content>Chronic Kidney Disease Staging per NKF:</content>
<content></content>
<content>Stage I & II GFR >=60 Normal to Mildly Decreased</content>
<content>Stage III GFR 30- 59 Moderately Decreased</content>
<content>Stage IV GFR 15-29 Severely Decreased</content>
<content>Stage V GFR <15 Very Little GFR Left</content>
<content>ESRD GFR <15 on COMPUTER CONSULTANT</content>
<content></content> Laboratory test finding (navigational concept) 108 [...] 1 2-78 Normal (applies to non-numeric results) [facility] (Tj [...] 6 .4-8.2 Normal (applies to non-numeric results) [facility] (Tj Oshea MD) Laboratory test finding (navigational concept) 1.2 Normal (applies to non- numeric results) [facility] (Tj Oshea MD) ID Date Data Source [id number] 03/02/2020 09:01:00 AM EST [facility] (Tj Oshea MD) Name Value Range Interpretation Code Description Data Radha rce(s) Supporting Document(s) Laboratory test finding (navigational concept) 5.4 10 4 .0-10.0 Normal (applies to non-numeric results) [facility] (Tj Oshea MD) Laboratory test finding (navigational concept) 4.56 10 4 .30-6.10 Normal (applies to non-numeric results) [facility] (Tj [...] WOUND CULTURE 02/18/2020 11:22:27 AM EDT eCW1 ([facility]) Name Value Range Interpretation Code Description Data Radha rce(s) Supporting Document(s) FULL REPORT IN LAB NOTES (eCW and [facility]). WOUND CULTURE eCW1 ([facility]) Procedure Social History Code Duration Value Status Description Data Source(s ) Smoking 12/28/2020 12:00:00 AM EDT Unknown if ever smoked comp leted Unknown if ever smoked [facility] Smoking 08/09/2020 12:00:00 AM EDT Never Smoker completed Never S moker eCW1 ([facility]) Smoking 08/09/2020 12:00:00 AM EDT Never Smoker completed Never S moker eCW1 ([facility]) Smoking 03/08/2020 12:00:00 AM EST Never Smoker completed Never S moker eCW1 ([facility]) Smoking 03/08/2020 12:00:00 AM EST Never Smoker completed Never S moker eCW1 ([facility]) Smoking 03/08/2020 12:00:00 AM EST Never Smoker completed Never S moker eCW1 ([facility]) Smoking 02/16/2020 12:00:00 AM EDT Never Smoker completed Never S moker eCW1 ([facility]) Smoking 02/16/2020 12:00:00 AM EDT Never Smoker completed Never S moker eCW1 ([facility]) Smoking 02/16/2020 12:00:00 AM EDT Never Smoker completed Never S moker eCW1 ([facility]) Smoking 02/02/2020 12:00:00 AM EDT Never Smoker completed Never S moker eCW1 ([facility]) Smoking 02/02/2020 12:00:00 AM EDT Never Smoker completed Never S moker eCW1 ([facility]) Vital Signs ID Date Data Source UNK Name Value Range Interpretation Code Description Data Source(s) Body height 71 [in_i] 71 [in_i] MEDENT (Tj Oshea MD) 5'11" Body weight 221.50 [lb_av] 221.50 [lb_av] MEDEN T (Tj Oshea MD) Body mass index (BMI) [Ratio] 30.9 kg/m2 30.9 k g/m2 MEDENT (Tj Oshea MD) Body temperature 98.3 [degF] 98.3 [degF] MEDENT (Tj Oshea MD) Systolic blood pressure 123 mm[Hg] 123 mm[Hg] M EDENT (Tj Oshea MD) Diastolic blood pressure 73 mm[Hg] 73 mm[Hg] MEDENT (Tj Oshea MD) Heart rate 90 /min 90 /min MEDENT (Tj Oshea MD) Oxygen saturation in Arterial blood by Pulse oximetry 92 % 92 % MEDENT (Tj Oshea MD) Respiratory rate 16 /min 16 /min MEDENT ( Tj Oshea MD) Systolic blood pressure 118 mm[Hg] 118 mm[Hg] M EDENT ([facility], ) Diastolic blood pressure 70 mm[Hg] 70 mm[Hg] MEDENT ([facility], ) Respiratory rate 20 /min 20 /min MEDENT ( [facility], ) Heart rate 64 /min 64 /min MEDENT ([facility], ) Systolic blood pressure 110 mm[Hg] 110 mm[Hg] M EDENT ([facility], ) Diastolic blood pressure 70 mm[Hg] 70 mm[Hg] MEDENT ([facility], ) Heart rate 76 /min 76 /min MEDENT ([facility], ) Respiratory rate 16 /min 16 /min MEDENT ( [facility], ) Systolic blood pressure 116 mm[Hg] 116 mm[Hg] M EDENT (Tj Oshea MD) Body height 71 [in_i] 71 [in_i] MEDENT (Tj Oshea MD) 5'11" Body weight 223.00 [lb_av] 223.00 [lb_av] MEDEN T (Tj Oshea MD) Body mass index (BMI) [Ratio] 31.1 kg/m2 31.1 k g/m2 MEDENT (Tj Oshea MD) Body temperature 98.5 [degF] 98.5 [degF] MEDENT (Tj Oshea MD) Diastolic blood pressure 70 mm[Hg] 70 mm[Hg] MEDENT (Tj Oshea MD) Heart rate 78 /min 78 /min MEDENT (Tj Oshea MD) Oxygen saturation in Arterial blood by Pulse oximetry 90 % 90 % MEDENT (Tj Oshea MD) Respiratory rate 16 /min 16 /min MEDENT ( Tj Oshea MD) Heart rate 83 /min 83 /min MEDENT ([facility], ) Systolic blood pressure 124 mm[Hg] 124 [facility]Hg] [facility] Oxygen saturation in Arterial blood by Pulse oximetry 94 % 94 % MEDENT ([facility]) Diastolic blood pressure 82 mm[Hg] 82 mm[Hg] MEDENT ([facility]) Body temperature 96.9 [degF] 96.9 [degF] 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 Body weight 224.00 [lb_av] 224.00 [lb_av] MEDEN T ([facility]) Body mass index (BMI) [Ratio] 31.2 kg/m2 31.2 k g/m2 MEDENT ([facility]) Body height 71 [in_i] 71 [in_i] MEDENT ([facility], ) 5'11" [place] body weight 172 [lb_av] 172 [lb_av] MEDEN T ([facility]) Body weight 101.606 kg 101.606 kg [facility] Body surface area Derived from formula 2.21 m2 2.21 m2 [facility] ([facility]) Body weight 223 [lb_av] 223 [lb_av] eCW1 ([facility]) Body height 73 [in_i] 73 [in_i] eCW1 ([facility]) Heart rate 83 /min 83 /min eCW1 ([facility]) Respiratory rate 18 /min 18 /min eCW1 ([facility]) Body mass index (BMI) [Ratio] 29.42 kg/m2 29.42 kg/m2 W1 ([facility]) Body temperature 98.2 [degF] 98.2 [degF] eCW1 ( [facility]) Diastolic blood pressure 58 mm[Hg] 58 mm[Hg] eCW1 ([facility]) Systolic blood pressure 98 mm[Hg] 98 mm[Hg] e CW1 ([facility]) Systolic blood pressure 132 mm[Hg] 132 mm[Hg] M EDENT ([facility], ) VS as reported by JRN nurse Diastolic blood pressure 72 mm[Hg] 72 mm[Hg] [facility] VS as reported by [facility] nurse Body weight 228.38 [lb_av] 228.38 [lb_av] MEDEN T ([facility], ) Heart rate 80 /min 80 /min [facility] ([facility], ) Respiratory rate 16 /min 16 /min [facility] ( [facility], ) Oxygen saturation in Arterial blood by Pulse oximetry 96 % 96 % [facility] ([facility], ) Body weight [lb_av] eCW1 ([facility]) Body height 73 [in_i] 73 [in_i] eCW1 ([facility]) Body mass index (BMI) [Ratio] 30.2 kg/m2 30.2 k g/m2 W1 ([facility]) Systolic blood pressure 100 mm[Hg] 100 mm[Hg] e CW1 ([facility]) Diastolic blood pressure 74 mm[Hg] 74 mm[Hg] eCW1 ([facility]) Body weight [lb_av] eCW1 ([facility]) Body height 73 [in_i] 73 [in_i] eCW1 ([facility]) Body mass index (BMI) [Ratio] 30.2 kg/m2 30.2 k g/m2 eCW1 ([facility]) Systolic blood pressure 112 mm[Hg] 112 mm[Hg] e CW1 ([facility]) Diastolic blood pressure 76 mm[Hg] 76 mm[Hg] eCW1 ([facility]) Body weight [lb_av] eCW1 ([facility]) Body height 73 [in_i] 73 [in_i] eCW1 ([facility]) Body mass index (BMI) [Ratio] 30.2 kg/m2 30.2 k g/m2 eCW1 ([facility]) Systolic blood pressure 118 mm[Hg] 118 mm[Hg] e CW1 ([facility]) Diastolic blood pressure 74 mm[Hg] 74 mm[Hg] eCW1 ([facility]) ID Date Data Source [id number] 01/21/2021 04:00:36 PM [facility] Name Value Range Interpretation Code Description Data Source(s) WEIGHT RECORDED 224.43 lb 224.43 lb [facility] Body height Measured 73 in 73 in [facility] TRANSFER FROM [facility] Patient Treatment Plan of Care Planned Activity Planned Date Details Description Data Source (s) Levofloxacin 750 MG Oral Tablet 01/04/2021 12:00:00 AM [facility] Levofloxacin 750 MG Oral Tablet 01/04/2021 12:00:00 AM [facility] clobazam 10 MG Oral Tablet 01/03/2021 12:00:00 AM [facility] Levofloxacin 750 MG Oral Tablet 01/03/2021 12:00:00 AM [facility] clobazam 10 MG Oral Tablet 01/02/2021 12:00:00 AM [facility] Hydroxyzine Hydrochloride 25 MG Oral Tablet 12/31/2020 12:14:23 PM [facility] Gentamicin Sulfate (LONGTERM) 0.001 MG/MG Topical Ointment 02/18/2020 12:00:00 AM EDT eCW1 ([facility]) Gentamicin Sulfate (LONGTERM) 0.001 MG/MG Topical Ointment 02/18/2020 12:00:00 AM EDT eCW1 ([facility]) doxycycline hyclate 100 MG Oral Capsule 02/16/2020 12:00:00 AM EDT eCW1 ([facility]) doxycycline hyclate 100 MG Oral Capsule 02/16/2020 12:00:00 AM EDT eCW1 ([facility]) doxycycline hyclate 100 MG Oral Capsule 02/16/2020 12:00:00 AM EDT eCW1 ([facility]) Triamcinolone Acetonide 1 MG/ML Topical Cream 02/02/2020 12:00:00 A M EDT eCW1 ([facility]) Triamcinolone Acetonide 1 MG/ML Topical Cream 02/02/2020 12:00:00 A M EDT eCW1 ([facility]) Triamcinolone Acetonide 1 MG/ML Topical Cream 02/02/2020 12:00:00 A M EDT eCW1 ([facility]) Triamcinolone Acetonide 1 MG/ML Topical Cream 02/02/2020 12:00:00 A M EDT eCW1 ([facility]) Triamcinolone Acetonide 1 MG/ML Topical Cream 02/02/2020 12:00:00 A M EDT eCW1 ([facility]) Phenytoin sodium 100 MG Extended Release Oral Capsule [facility]
[2021-03-14 09:09] LABS: OSMOLALITY SERUM 298 MOSM/KG (280-301)
[2021-03-14 09:19] LABS: CK-MB VALUE MASS < 1.0 NG/ML (<3.6); CPK CREATINE PHOSPHOKINASE 54 U/L (39-308); MB/CK RELATIVE INDEX 1.85 (< OR =4); TROPONIN I < 0.02 NG/ML (< 0.10)
[2021-03-14 09:20] LABS: ALBUMIN 3.4 GM/DL (3.2-5.2); ALT/SGPT 18 U/L (12-78); BILIRUBIN,DIRECT < 0.1 MG/DL (0.0-0.2); BILIRUBIN,TOTAL 0.2 MG/DL (0.2-1.0); BLOOD UREA NITROGEN 14 MG/DL (7-18); CALCIUM LEVEL 8.8 MG/DL (8.8-10.2); CARBON DIOXIDE LEVEL 33 MEQ/L (21-32); CHLORIDE LEVEL 108 MEQ/L (98-107); CREATININE FOR GFR 0.87 MG/DL (0.70-1.30); GLOMERULAR FILTRATION RATE > 60.0 (>49); GLUCOSE, FASTING 99 MG/DL (70-100); POTASSIUM SERUM 4.3 MEQ/L (3.5-5.1); SODIUM LEVEL 143 MEQ/L (136-145); TOTAL PROTEIN 6.3 GM/DL (6.4-8.2)
[2021-03-14] MEDS ORDERED: DILA100C PO (09:20)
--- NOTE | 2021-03-14 09:43 | REP ---
INDICATION: Altered Mental Status COMPARISON: 12/28/2020 TECHNIQUE: Axial noncontrast images from the skull base to the thoracic inlet with coronal reformations. This CT examination was performed using the following dose reduction techniques: Automated exposure control, adjustment of mA and/or kv according to the patient's size, and use of iterative reconstruction technique. FINDINGS: Atrophy with periventricular leukomalacia and microvascular ischemic changes are again appreciated. Encephalomalacia in the left parietal lobe remains stable. Ventriculoperitoneal shunt via right frontal approach extends into the lateral ventricle and remains stable in position. There is no evidence for acute intracranial hemorrhage, mass/mass effect, pathology or infarction. No extra-axial fluid collection. Calvarium is intact. Paranasal sinuses again suggest acute/chronic sinus disease. IMPRESSION: Chronic stable changes. Acute on chronic sinus disease. No evidence for acute intracranial hemorrhage or mass/mass effect. <Electronically signed by Edy Melendez > 03/14/21 [id number]
--- NOTE | 2021-03-14 09:49 | REP ---
INDICATION: Altered Mental Status COMPARISON: 12/28/2020 TECHNIQUE: Portable AP view of the chest FINDINGS: Examination is significantly limited due to underpenetration, and poor inspiratory effort. Perihilar and bilateral airspace disease along with pulmonary vascular congestion cannot be excluded. No obvious effusion. No pneumothorax. Skeletal structures are intact. Right-sided ventriculoperitoneal shunt again noted. IMPRESSION: Limited examination. Cannot exclude scattered opacities or pulmonary vascular congestion. <Electronically signed by Edy Melendez > 03/14/21 [id number]
[2021-03-14 09:50] LABS: ABG BASE EXCESS 3.5 (-2.0-2.0); ABG HCO3 31.3 MEQ/L (22.0-26.0); ABG O2 SATURATION 96.1 % (95.0-99.0); ABG PARTIAL PRESSURE O2 96.3 mmHg (75.0-100.0); ABG STANDARD HCO3 27.6 MEQ/L (22.0-26.0); ABG TOTAL CO2 33.2 MEQ/L (23.0-31.0); ABG pH (ARTERIAL) 7.306 UNITS (7.350-7.450)
[2021-03-14 09:53] LABS: ABG PARTIAL PRESSURE CO2 64.1 mmHg (35.0-45.0)
[2021-03-14 10:28] LABS: PHENOBARBITAL LEVEL 29.2 UG/ML (15.0-40.0); PHENYTOIN (DILANTIN) 6.7 UG/ML (10.0-20.0)
--- OUTSIDE RECORDS SUMMARY | 2021-03-14 11:16 | CCD ---
Author Author [facility] Address Unknown Phone Unavailable Care Team Providers Care Larriman Name Role Phone Tip Aguilar Unavailable Unavailable Tip Aguilar Unavailable Unavailable Tip Aguilar Unavailable Unavailable Tip Aguilar Unavailable Unavailable Tip Aguilar Unavailable Unavailable Tip Aguilar Unavailable Unavailable Tip Aguilar Unavailable Unavailable Rocio, L Mily FINISHED CLOTH CHECKER Unavailable Unavailable Rocio, L Mily FINISHED CLOTH CHECKER Unavailable Unavailable Rocio, L Mily FINISHED CLOTH CHECKER Unavailable Unavailable Rocio, L Mily FINISHED CLOTH CHECKER Unavailable Unavailable Rocio, L Mily FINISHED CLOTH CHECKER Unavailable Unavailable Rocio, L Mily FINISHED CLOTH CHECKER Unavailable Unavailable Rocio, L Mily FINISHED CLOTH CHECKER Unavailable Unavailable Rocio, L Mily FINISHED CLOTH CHECKER Unavailable Unavailable Rocio, L Mily FINISHED CLOTH CHECKER Unavailable Unavailable Rocio, L Mily FINISHED CLOTH CHECKER Unavailable Unavailable Rocio, L Mily FINISHED CLOTH CHECKER Unavailable Unavailable Rocio, L Mily FINISHED CLOTH CHECKER Unavailable Unavailable Rocio, L Mily FINISHED CLOTH CHECKER Unavailable Unavailable Rocio, L Mily FINISHED CLOTH CHECKER Unavailable Unavailable Rocio, L Mily FINISHED CLOTH CHECKER Unavailable Unavailable Rocio, L Mily FINISHED CLOTH CHECKER Unavailable Unavailable Rocio, L Mily FINISHED CLOTH CHECKER Unavailable Unavailable Rocio, L Mily FINISHED CLOTH CHECKER Unavailable Unavailable Rocio, L Mily FINISHED CLOTH CHECKER Unavailable Unavailable Rocio, L Mily FINISHED CLOTH CHECKER Unavailable Unavailable Rocio, L Mily FINISHED CLOTH CHECKER Unavailable Unavailable Rocio, L Mily FINISHED CLOTH CHECKER Unavailable Unavailable Rocio, L Mily FINISHED CLOTH CHECKER Unavailable Unavailable Rocio, L Mily FINISHED CLOTH CHECKER Unavailable Unavailable Rocio, L Mily FINISHED CLOTH CHECKER Unavailable Unavailable Paniagua, P Ceasar Unavailable Unavailable [...] J Omayra PA Unavailable Unavailable Trickey, J Moayra PA Unavailable Unavailable Trickey, J Omayra PA [...] is protected by Article 27-F of the [facility] Public Health law. If you continue you may have access to information: Regarding HIV / AIDS; Provided by facilities licensed or operated by the [facility] Office of Mental Health; or Provided by the [facility] Office for People With Developmental Disabilities. If such information is present, then the following [facility] mandated warning applies: This information has [...] law may result in a fine or custodial sentence or both. A general authorization for the release of medical or other information is NOT sufficient authorization for further disc losure. Allergies and Adverse Reactions Type Description Substance Reaction Status Data Source(s ) Propensity to adverse reactions LURASIDONE LURASIDONE [facility] Propensity to adverse reactions HALOPERIDOL HALOPERIDOL [facility] Propensity to adverse reactions FELBAMATE FELBAMATE [facility] Propensity to adverse reactions ASENAPINE ASENAPINE [facility] Propensity to adverse reactions ADHESIVE TAPE ADHESIVE TAPE [facility] Family History Family Member Name Family Member Gender Family Member Status Date o f Status Description Data Source(s) Unknown Unknown Problem [facility] ([facility] Unknown Female Problem [facility] ([facility]) Encounters Encounter Providers Location Date Indications Data Source(s ) Outpatient Attender: Alisson Aguilar [place] [facility] 09:30:00 AM EST MEDENT (Tj Oshea MD) Outpatient Attender: Omayra HILLS Main office [facility] 01/18/2021 08:15:00 AM EDT [facility] ([facility]) Outpatient Attender: CARLITOS BONDS [place] [facility] 01/11/2021 02:00:00 PM EDT MEDENT (Tj Oshea MD) Inpatient Attender: Contreras Peñaloza nder: Colin Garrido MDAttender: VIVIANA RUBIN MDAttender: Cesaar PaniaguaAdmitter: VIVIANA RUBIN MDReferrer: VIVIANA RUBIN MD [id number] 12/28/2020 12:00:00 AM EDT - 01/03/2021 04:30:00 PM [facility] Patient discharged. Outpatient Attender: Omayra HILLS Main office - [facility] n 12/19/2020 11:15:00 AM EDT MED[facility] ([facility]) Office Visit Attender: CARLITOS HILLS [facility] 12/06/2020 10:00:00 AM EDT MEDENT (Tj Oshea MD) Outpatient Attender: Mily Skelton/Gómez/Hadley/Reindl 11/14/2020 11:00:00 AM EDT MED[facility] ([facility]) Outpatient Attender: Omayra HILLS Main office - [facility] n 09/14/2020 01:45:00 PM EDT MEDENT ([facility], ) Outpatient Attender: CARLITOS HILLS [facility] 08/09/2020 10:00:00 AM EDT [facility] (Tj Oshea MD) [place] [address] [address] 08/09/2020 12:00:00 AM EDT eCW1 ([facility]) [place] [address] [address] 07/05/2020 12:00:00 AM EST eCW1 ([facility]) Outpatient Attender: CARLITOS HILLS [facility] 06/21/2020 11:30:00 AM EST [facility] (Tj Oshea MD) [place] [address] [address] 06/01/2020 12:00:00 AM EST eCW1 ([facility]) Outpatient Attender: CARLITOS HILLS [facility] 05/11/2020 10:00:00 AM EST MEDENT (Tj Oshea MD) Office Visit Attender: Omayra HILLS Main office - [facility] n 05/08/2020 07:45:00 AM EST MEDENT ([facility] ) Office Visit Attender: Omayra HILLS [facility] office - [facility] n 04/27/2020 10:30:00 AM EST [facility] ([facility]) [place] [address] [address] 03/10/2020 12:00:00 AM EST [facility] [place] [address] [address] 03/08/2020 12:00:00 AM EST eCW1 ([facility]) Outpatient Attender: CARLITOS HILLS [facility] 03/07/2020 09:00:00 AM EST [facility] (Tj Oshea MD) [place] [address] [address] 02/18/2020 12:00:00 AM EDT eCW1 ([facility]) Outpatient Attender: Nathalia Pool MD Physical Therap y 02/17/2020 01:00:00 PM EDT [facility] ([facility]) [place] [address] [address] 02/16/2020 12:00:00 AM EDT eCW1 ([facility]) [place] [address] [address] 02/16/2020 12:00:00 AM EDT eCW1 ([facility]) [place] [address] [address] 02/15/2020 12:00:00 AM EDT eCW1 ([facility]) [place] [address] [address] 02/02/2020 12:00:00 AM EDT eCW1 ([facility]) Immunizations Vaccine Date Status Description Data Source(s) DIPHTHERIA,PERTUSSIS(ACELLULAR),TETANUS VACCINE 07/31/2020 1 2:00:00 AM EDT completed [facility] COVID-19 VACCINE Moderna 07/13/2020 12:00:00 AM EDT completed [employer] Vaccine Series Complete: YESThis Data wa s Submitted to [facility] Via [employer]. COVID-19 dose #2 given elsewhere Unspecified 07/08/2020 02:3 1:00 PM EST completed eCW1 ([facility]) COVID-19 dose #2 given elsewhere Unspecified 07/08/2020 02:3 1:00 PM EST completed eCW1 ([facility]) COVID-19 dose #1 given elsewhere Unspecified 06/15/2020 02:3 0:00 PM EST completed eCW1 ([facility]) COVID-19 dose #1 given elsewhere Unspecified 06/15/2020 02:3 0:00 PM EST completed eCW1 ([facility]) COVID-19 VACCINE Moderna 06/15/2020 12:00:00 AM EST completed [facility] Vaccine Series Complete: NOThis Data was Submitted to [facility] Via [employer]. Medications Medication Brand Name Start Date Product [...] ORAL active MEDENT (Tj Oshea MD) sennosides, RESIDENTIAL 8.6 MG Oral Tablet Senna 02/23/2021 12:00:00 AM EDT ORAL active [facility] (Tj Oshea MD) Calcium Carbonate 1250 MG / Cholecalciferol 200 UNT Or al Tablet Oyster Shell Calcium W/D 02/23/2021 12:00:00 AM EDT ORAL active [facility] (Tj Oshea MD) Cholecalciferol 40837 UNT Oral Tablet Vitamin D3 Ultra Poten [...] by jeannie th daily for 1 dose [facility] Levofloxacin 750 MG Oral Tablet levoFLOXacin 750 MG Or al Tablet (LEVAQUIN) levoFLOXacin 750 MG Oral Tablet (LEVAQUIN) 01/04/2021 12:00:00 AM EDT 750 mg Oral active Take 1 tablet by jeannie th daily for 1 dose [facility] Levofloxacin 750 MG Oral Tablet levoFLOXacin 750 MG Or al Tablet (LEVAQUIN) levoFLOXacin 750 MG Oral Tablet (LEVAQUIN) 01/03/2021 12:00:00 AM EDT 750 mg Oral aborted Take 1 tablet by jeannie th daily for 3 days [facility] clobazam 10 MG Oral Tablet cloBAZam 10 MG Oral Tablet (ONFI) cloBAZam 10 MG Oral Tablet (ONFI) 01/03/2021 12:00:00 AM EDT 5 mg Oral act jose Take 0.5 tablets by mouth Two Times Daily , Max Daily Dose: 10 mg [facility] clobazam 10 MG Oral Tablet cloBAZam 10 MG Oral Tablet (ONFI) cloBAZam 10 MG Oral Tablet (ONFI) 01/02/2021 12:00:00 AM EDT 5 mg Oral abo rted Take 0.5 tablets by mouth Two Times Daily , Max Daily Dose: 10 mg [facility] Lactulose 667 MG/ML Oral Solution lactulose (CHRONULAC ) solution 20 mL lactulose (CHRONULAC) solution 20 mL 01/01/2021 05:30:00 PM EDT 20 mL Oral active 20 mL, Oral, 2 Times Daily, First dose (after last modification) on 01/01/21 at 1730, For 30 days [facility] Medication administered onsite Levetiracetam 750 MG Oral Tablet levETIRAcetam (KEPPRA ) tablet 1,500 mg levETIRAcetam (KEPPRA) tablet 1,500 mg 12/31/2020 09:00:00 PM EDT 1500 mg Oral active 1,500 mg, Oral , 2 Times Daily, First dose on 12/31/20 at 2100, For 30 days [facility] Medication administered onsite Phenobarbital 32 MG Oral Tablet PHENobarbital (LUMINAL ) tablet 64.8 mg PHENobarbital (LUMINAL) tablet 64.8 mg 12/31/2020 09:00:00 PM EDT 64.8 mg Oral active 64.8 mg, Oral, 2 Times Daily, First dose on 12/31/20 at 2100, For 30 days [facility] Medication administered onsite levoFLOXacin (LEVAQUIN) tablet 750 mg 12/31/2020 12:15:00 PM EDT 750 mg Oral active 750 mg, Oral, Daily Standard, First dose (after last modification) on 12/31/20 at 1215, For 5 days
Administer 2 hours before or 4 hours after oral magnesium, calcium, iron, and sucralfate.
Discouraged Uses: Treatment of UTI
[facility] Medication administered onsite Phenytoin sodium 100 MG Extended Release Oral Capsule phenytoin (DILANTIN) ER capsule 100 mg phenytoin (DILANTIN) ER capsule 100 mg 12/31/2020 12:1 5:00 PM EDT 100 mg Oral active 100 mg, Oral, 2 Times Daily, First dose on 12/31/20 at 1215, For 30 days
Hold enteral nutrition at least 1 hour before and 2 hours after dose. Monitor drug levels.
[facility] Medication administered onsite Hydroxyzine Hydrochloride 25 MG Oral Tablet hydrOXYzin e (ATARAX) tablet 25 mg hydrOXYzine (ATARAX) tablet 25 mg 12/31/2020 12:14:23 PM EDT 25 mg Oral active 25 mg, Oral, Every 6 hours PRN, Itching, Anxiety, Starting on 12/31/20 at 1214, For 6 doses [facility] Medication administered onsite lamotrigine 100 MG Oral Tablet lamoTRIgine (LaMICtal) tablet 200 mg lamoTRIgine (LaMICtal) tablet 200 mg 12/31/2020 09:00:00 AM EDT 200 mg Oral active 200 mg, Oral, Daily Standard, First dose on Sun 1 at 0900, For 30 days [facility] Medication administered onsite paroxetine (PAXIL) tablet 40 mg [id number] 12/31/2020 09:00:00 AM E DT 40 mg Oral active 40 mg, Oral, D aily Standard, First dose on 12/31/20 at 0900, For 30 days [facility] Medication administered onsite paroxetine (PAXIL) tablet 20 mg [id number] 12/31/2020 09:00:00 AM E DT 20 mg Oral active 20 mg, Oral, D aily Standard, First dose on 12/31/20 at 0900, For 30 days
Take along with 40mg Paroxetine
[facility] Medication administered onsite lamotrigine 100 MG Oral Tablet lamoTRIgine (LaMICtal) tablet 400 mg lamoTRIgine (LaMICtal) tablet 400 mg 12/30/2020 10:00:00 PM EDT 400 mg Oral active 400 mg, Oral, Nightly, First dose on 12/30/20 at 220 0, For 30 days [facility] Medication administered onsite Trazodone Hydrochloride 100 MG Oral Tablet trazodone ( DESYREL) tablet 200 mg trazodone (DESYREL) tablet 200 mg 12/30/2020 10:00:00 PM EDT 200 mg Oral active 200 mg, Oral, Nightly, First dos e on 12/30/20 at 2200, For 30 days [facility] Medication administered onsite clobazam 10 MG Oral Tablet cloBAZam (ONFI) tablet 5 mg cloBAZam (ONFI) tablet 5 mg 12/30/2020 09:00:00 PM EDT 5 mg Oral active 5 mg, Oral, 2 Times Daily, First dose on 12/30/20 at 2100, For 30 days [facility] Medication administered onsite QUEtiapine (SEROquel) tablet 300 mg 12/30/2020 09:00:00 PM E DT 300 mg Oral active 300 mg, Oral, 2 Times Daily, First dose on 12/30/20 at 2100, For 30 days [facility] Medication administered onsite phenytoin (DILANTIN) injection 100 mg [id number] 12/30/2020 09:00 :00 PM EDT 100 mg Intravenous aborted 100 mg, Intravenous, Every 12 hours, First dose (after last modification) on 12/30/20 at 2100, For 57 doses
Administer infusion using a 0.22 micron filter.
[facility] Medication administered onsite olanzapine 5 MG/ML Injectable Solution OLANZapine (ZYP REXA) injection 5 mg OLANZapine (ZYPREXA) injection 5 mg 12/30/2020 05:45:00 PM EDT 5 mg Intramuscular completed 5 mg, Intra muscular, Once, On 12/30/20 at 1745, For 1 dose
Reconstitute 10 mg vial with 2.1 mL SWFI; resulting solution is ~5 mg/mL; Use within 1 hour following reconstitution.
[facility] Medication administered onsite azithromycin in NaCl 0.9 % 250 mL infusion 500 mg 12/30/2020 12:00:00 AM EDT 500 mg Intravenous aborted 500 mg, Intr avenous, at 250 mL/hr, Every 24 hours, First dose on 12/30/20 at 0000, For 4 days [facility] Medication administered onsite Ceftriaxone 1000 MG Injection cefTRIAXone (ROCEPHIN) i nfusion 1 g (premix) cefTRIAXone (ROCEPHIN) infusion 1 g (premix) 12/30/2020 12:00:00 AM EDT 1 g Intravenous aborted 1 g, Intraven ous, at 100 mL/hr, Every 24 hours, First dose on Sat /4/21 at 0000, For 4 days
Discouraged Uses: Empiric treatment of post-surgical meningitis (ceftazidime preferred)
[facility] Medication administered onsite NaCl infusion 0.9 % [id number] 12/29/2020 03:45:00 PM EDT Intravenous aborted at 75 mL/hr, Intrave nous, Continuous, Starting on Fri12/29/20 at 1545, For 30 days [facility] Medication administered onsite phenytoin (DILANTIN) injection 150 mg [id number] 12/29/2020 09:00 :00 AM EDT 150 mg Intravenous aborted 150 mg, Intravenous, Every 12 hours, First dose on Fri12/29/20 at 0900, For 30 days
Administer infusion using a 0.22 micron filter.
[facility] Medication administered onsite Phenobarbital 130 MG/ML Injectable Solut ion PHENobarbital (LUMINAL) injection 60 mg PHENobarbital (LUMINAL) injection 60 mg 12/29/2020 09:00:00 AM EDT 60 mg Intravenous aborted 60 mg, Intrav enous, 2 Times Daily, First dose on Fri12/29/20 at 0900, For 30 days [facility] Medication administered onsite 0.4 ML Enoxaparin sodium [...] hours after epidural catheter has been removed.
[facility] Medication administered onsite Levetiracetam 15 MG/ML Injectable [...] on Fri12/29/20 at 0900, For 30 days [facility] Medication administered onsite Valproic Acid 100 MG/ML Injectable Solut ion valproate sodium (DEPACON) injection 500 mg valproate sodium (DEPACON) injection 500 mg 12/29/2020 08:00 :00 AM EDT 500 mg Intravenous aborted 500 mg, Intr avenous, Every 8 hours, First dose on Fri12/29/20 at 0800, For 30 days
Administer at a rate of 1 g over 60 minutes
[facility] Medication administered onsite Valproic Acid 100 MG/ML Injectable Solut ion valproate sodium (DEPACON) injection 500 mg valproate sodium (DEPACON) injection 500 mg 12/29/2020 04:00 :00 AM EDT 500 mg Intravenous completed 500 mg, In travenous, at 40 mL/hr, Once, On Fri12/29/20 at 0400, For 1 dose
Administer at a rate of 1 g over 15 minutes. Suggested dilution 50 mL NS
[facility] Medication administered onsite 1 ML Lorazepam 2 MG/ML Injection LORazepam (ATIVAN) in jection 2 mg LORazepam (ATIVAN) injection 2 mg 12/29/2020 04:00:00 AM EDT 2 mg Intraveno us completed 2 mg, Intravenous, Once, On Fri12/29/20 at 0400, For 1 dose [facility] Medication administered onsite Valproic Acid 100 MG/ML Injectable Solut ion valproate sodium (DEPACON) injection 500 mg valproate sodium (DEPACON) injection 500 mg 12/28/2020 11:45 :00 PM EDT 500 mg Intravenous completed 500 mg, In travenous, Once, On Doreen 12/28/20 at 2345, For 1 dose
Administer at a rate of 1 g over 15 minutes. Suggested dilution 50 mL NS
[facility] Medication administered onsite Ceftriaxone 1000 MG Injection cefTRIAXone (ROCEPHIN) i nfusion 1 g (premix) cefTRIAXone (ROCEPHIN) infusion 1 g (premix) 12/28/2020 11:30:00 PM EDT 1 g Intravenous completed 1 g, Intraven ous, at 100 mL/hr, Once, On Doreen 12/28/20 at 2330, For 1 dose
Discouraged Uses: Empiric treatment of post- surgical meningitis (ceftazidime preferred)
[facility] Medication administered onsite azithromycin in NaCl 0.9 % 250 mL infusion 500 mg 12/28/2020 11:30:00 PM EDT 500 mg Intravenous completed 500 mg, In travenous, at 250 mL/hr, Once, On Doreen 12/28/20 at 2330, For 1 dose [facility] Medication administered onsite Levetiracetam 15 MG/ML Injectable Soluti on levETIRAcetam (KEPPRA) 1,500 mg in sodium chloride 100 mL (15 mg/mL) infusion (premix) levETIRAcetam (KEPPRA) 1,500 mg in sodium chloride 100 mL (15 mg/mL) infusion (premix) 12/28/2020 09:30:00 PM EDT 1500 mg Intravenous completed 1, 500 mg, Intravenous, at 400 mL/hr, Once, On Doreen 12/28/20 at 2130, For 1 dose [facility] Medication administered onsite Phenobarbital 130 MG/ML Injectable Solut ion PHENobarbital (LUMINAL) injection 58 mg PHENobarbital (LUMINAL) injection 58 mg 12/28/2020 09:30:00 PM EDT 58 mg Intravenous completed 58 mg, Intrav enous, Once, On Doreen 12/28/20 at 2130, For 1 dose [facility] Medication administered onsite fosphenytoin (CEREBYX) [place] [id number] 12/28/2020 09:30:00 PM EDT 100 mg{phenytoin'equivalent} Intravenous complet ed 100 mg PE, Intravenous, Once, On Doreen 12/28/20 at 2130, For 1 dose [facility] Medication administered onsite Gentamicin Sulfate (RESIDENTIAL) 0.001 MG/MG Topical Ointment Gentamicin Sulfate 0.1 % Gentamicin Sulfate 0.1 % 02/18/2020 12:00:00 AM EDT suspended Gentamicin Sulfate 0.1 % eCW1 ([facility]) Gentamicin Sulfate (RESIDENTIAL) 0.001 MG/MG Topical Ointment Gentamicin Sulfate 0.1 % Gentamicin Sulfate 0.1 % 02/18/2020 12:00:00 AM EDT suspended Gentamicin Sulfate 0.1 % eCW1 ([facility]) Gentamicin Sulfate (RESIDENTIAL) 0.001 MG/MG Topical Ointment Gentamicin Sulfate 0.1 % Gentamicin Sulfate 0.1 % 02/18/2020 12:00:00 AM EDT suspended Gentamicin Sulfate 0.1 % eCW1 ([facility]) Gentamicin Sulfate (RESIDENTIAL) 0.001 MG/MG Topical Ointment Gentamicin Sulfate 0.1 % Gentamicin Sulfate 0.1 % 02/18/2020 12:00:00 AM EDT suspended Gentamicin Sulfate 0.1 % eCW1 ([facility]) Gentamicin Sulfate (RESIDENTIAL) 0.001 MG/MG Topical Ointment Gentamicin Sulfate 0.1 % Gentamicin Sulfate 0.1 % 02/18/2020 12:00:00 AM EDT active Gentamicin Sulfate 0.1 % eCW1 ([facility]) Gentamicin Sulfate (RESIDENTIAL) 0.001 MG/MG Topical Ointment Gentamicin Sulfate 0.1 % Gentamicin Sulfate 0.1 % 02/18/2020 12:00:00 AM EDT active Gentamicin Sulfate 0.1 % eCW1 ([facility]) Gentamicin Sulfate (RESIDENTIAL) 0.001 MG/MG Topical Ointment Gentamicin Sulfate 0.1 % Gentamicin Sulfate 0.1 % 02/18/2020 12:00:00 AM EDT suspended Gentamicin Sulfate 0.1 % eCW1 ([facility]) doxycycline hyclate 100 MG Oral Capsule Doxycycline Hy clate 100 MG Doxycycline Hyclate 100 MG 02/16/2020 12:00:00 AM EDT 1.0 {capsule} suspended Doxycycline Hyclate 100 MG eCW1 ([facility]) doxycycline hyclate 100 MG Oral Capsule Doxycycline Hy clate 100 MG Doxycycline Hyclate 100 MG 02/16/2020 12:00:00 AM EDT 1.0 {capsule} active Doxycycline Hyclate 100 MG eCW1 ([facility]) doxycycline hyclate 100 MG Oral Capsule Doxycycline Hy clate 100 MG Doxycycline Hyclate 100 MG 02/16/2020 12:00:00 AM EDT 1.0 {capsule} suspended Doxycycline Hyclate 100 MG eCW1 ([facility]) doxycycline hyclate 100 MG Oral Capsule Doxycycline Hy clate 100 MG Doxycycline Hyclate 100 MG 02/16/2020 12:00:00 AM EDT 1.0 {capsule} suspended Doxycycline Hyclate 100 MG eCW1 ([facility]) doxycycline hyclate 100 MG Oral Capsule Doxycycline Hy clate 100 MG Doxycycline Hyclate 100 MG 02/16/2020 12:00:00 AM EDT 1.0 {capsule} active Doxycycline Hyclate 100 MG eCW1 ([facility]) doxycycline hyclate 100 MG Oral Capsule Doxycycline Hy clate 100 MG Doxycycline Hyclate 100 MG 02/16/2020 12:00:00 AM EDT 1.0 {capsule} suspended Doxycycline Hyclate 100 MG eCW1 ([facility]) doxycycline hyclate 100 MG Oral Capsule Doxycycline Hy clate 100 MG Doxycycline Hyclate 100 MG 02/16/2020 12:00:00 AM EDT 1.0 {capsule} suspended Doxycycline Hyclate 100 MG eCW1 ([facility]) doxycycline hyclate 100 MG Oral Capsule Doxycycline Hy clate 100 MG Doxycycline Hyclate 100 MG 02/16/2020 12:00:00 AM EDT 1.0 {capsule} active Doxycycline Hyclate 100 MG eCW1 ([facility]) Triamcinolone Acetonide 1 MG/ML Topical Cream Triamcin olone Acetonide 0.1 % Triamcinolone Acetonide 0.1 % 02/02/2020 12:00:00 AM EDT 1.0 {appli cation} active Triamcinolone Acetonide 0 .1 % eCW1 ([facility]) Triamcinolone Acetonide 1 MG/ML Topical Cream Triamcin olone Acetonide 0.1 % Triamcinolone Acetonide 0.1 % 02/02/2020 12:00:00 AM EDT 1.0 {appli cation} active Triamcinolone Acetonide 0 .1 % eCW1 ([facility]) Triamcinolone Acetonide 1 MG/ML Topical Cream Triamcin olone Acetonide 0.1 % Triamcinolone Acetonide 0.1 % 02/02/2020 12:00:00 AM EDT 1.0 {appli cation} active Triamcinolone Acetonide 0 .1 % eCW1 ([facility]) Triamcinolone Acetonide 1 MG/ML Topical Cream Triamcin olone Acetonide 0.1 % Triamcinolone Acetonide 0.1 % 02/02/2020 12:00:00 AM EDT 1.0 {appli cation} active Triamcinolone Acetonide 0 .1 % eCW1 ([facility]) Triamcinolone Acetonide 1 MG/ML Topical Cream Triamcin olone Acetonide 0.1 % Triamcinolone Acetonide 0.1 % 02/02/2020 12:00:00 AM EDT 1.0 {appli cation} active Triamcinolone Acetonide 0 .1 % eCW1 ([facility]) Triamcinolone Acetonide 1 MG/ML Topical Cream Triamcin olone Acetonide 0.1 % Triamcinolone Acetonide 0.1 % 02/02/2020 12:00:00 AM EDT 1.0 {appli cation} active Triamcinolone Acetonide 0 .1 % eCW1 ([facility]) Triamcinolone Acetonide 1 MG/ML Topical Cream Triamcin olone Acetonide 0.1 % Triamcinolone Acetonide 0.1 % 02/02/2020 12:00:00 AM EDT 1.0 {appli cation} active Triamcinolone Acetonide 0 .1 % eCW1 ([facility]) Triamcinolone Acetonide 1 MG/ML Topical Cream Triamcin olone Acetonide 0.1 % Triamcinolone Acetonide 0.1 % 02/02/2020 12:00:00 AM EDT 1.0 {appli cation} active Triamcinolone Acetonide 0 .1 % eCW1 ([facility]) Triamcinolone Acetonide 1 MG/ML Topical Cream Triamcin olone Acetonide 0.1 % Triamcinolone Acetonide 0.1 % 02/02/2020 12:00:00 AM EDT 1.0 {appli cation} active Triamcinolone Acetonide 0 .1 % eCW1 ([facility]) Triamcinolone Acetonide 1 MG/ML Topical Cream Triamcin olone Acetonide 0.1 % Triamcinolone Acetonide 0.1 % 02/02/2020 12:00:00 AM EDT 1.0 {appli cation} active Triamcinolone Acetonide 0 .1 % eCW1 ([facility]) Phenytoin sodium 100 MG Extended Release Oral Capsule Phenytoin Sodium Extended 100 MG Oral Capsule (DILANTIN) Phenytoin Sodium Extended 100 MG Oral Ca psule (DILANTIN) 100 mg Oral aborted Take 100 mg by mouth as needed [facility] Insurance Providers Payer name Policy type / Coverage type Policy ID Covered republican ID Covered republican's relationship to baer Policy Baer Plan Information Medicare Natl Gov't Servi Medicare Primary [id number] Self [id number] Medicare [place] Medicare Primary [id number] Self 0 [id number] Medicare [place] Medicare Primary [id number] Self 0 [id number] MEDICARE [id number] Medicare [place] Medicare Primary [id number] Self 0 [id number] Medicare [place] Medicare Primary [id number] Self MEDICARE A [id number] Self [id number] Medicare Natl Gov't Servi Medicare Primary [id number] Self Medicare Natl Gov't Servi Medicare Primary [id number] [id number] Self 0 [id number] Medicare Natl Gov't Servi Medicare Primary [id number] 2.16.840.1.084108.3.227.99.1767.5374.0 Self 0 [id number] EMED[place] [id number] SP [id number] MEDICAID [id number] SP [id number] [place] Med[place] [id number] [id number]. 04410.0 Self [id number] [place] B [id number] Self MEDICAID [id number] SP [id number] MEDICAID [id number] SP [id number] MEDICAID [id number] SP [id number] MEDICAID M [id number] Self [id number] [place] [id number] .5374.0 Self [id number] MEDICARE [id number] SP [id number] A Medicare Part B Medicare Primary [id number] [id number] Self 0 [id number] Medicare Part B Medicare Primary [id number] [id number] Self 0 [id number] [place] [id number] [id number] .5374.0 Self [id number] Medicare Part B Medicare Primary [id number] [id number]661.0 Self 0 [id number] Medicare Part B Medicare Primary [id number] [id number]661.0 Self 0 [id number] Medicare Part B Medicare Primary [id number] [id number]661.0 Self 0 [id number] Medicare Part B Medicare Primary [id number] 2.16.840.1.468738.3.227.99.1037.4661.0 Self 0 [id number] Medicare Part B Medicare Primary [id number] [id number]661.0 Self 0 [id number] Medicare Part B Medicare Primary [id number] 2.16.840.1.482110.3.227.99.1037.4661.0 Self 0 [id number] Medicare Part B Medicare Primary [id number] 2.16.840.1.768878.3.227.99.1037.4661.0 Self 0 [id number] Medicare Part B Medicare Primary [id number] 2.16.840.1.333776.3.227.99.1037.4661.0 Self 0 [id number] Medicare Part B Medicare Primary [id number] 2.16.840.1.263197.3.227.99.1037.4661.0 Self 0 [id number] Medicare Part B Medicare Primary [id number] 2.16.840.1.967551.3.227.99.1037.4661.0 Self 0 [id number] Medicare Part B Medicare Primary [id number] 2.16.840.1.384418.3.227.99.1037.4661.0 Self 0 [id number] Medicare Part B Medicare Primary [id number] 2.16.840.1.192480.3.227.99.1037.4661.0 Self 0 [id number] Medicare Part B Medicare Primary [id number] 2.16.840.1.882300.3.227.99.1037.4661.0 Self 0 [id number] Medicare Part B Medicare Primary [id number] 2.16.840.1.119721.3.227.99.1037.4661.0 Self 0 [id number] Medicare Part B Medicare Primary [id number] 2.16.840.1.606711.3.227.99.1037.4661.0 Self 0 [id number] Medicare Dme Supplies Medigap Part B [id number] 2.16.840.1.399574.3.227.99.991.90713.0 Self 0 [id number] Medicare Dme Supplies Medigap Part B [id number] 2.16.840.1.571026.3.227.99.991.58929.0 Self 0 [id number] Medicare Dme Supplies Medigap Part B [id number] 2.16.840.1.556544.3.227.99.991.04139.0 Self 0 [id number] Medicare Part B Medicare Primary [id number] 2.16.840.1.862884.3.227.99.1037.4661.0 Self 0 [id number] Medicare Dme Supplies Medigap Part B [id number] Self Medicaid Medigap Part B [id number] Self Medicare Part B Medicare Primary [id number] Self [place] [id number] Self Medicaid Medicaid [id number] Self Medicare Medicare Primary [id number] Self [id number] [place] [id number] SP [id number] B [id number] A MEDICARE [id number] SP [id number] [place] [id number] SP [id number] MEDICARE C [id number] S [id number] Y37 MEDICAID M [id number] S [id number] MEDICAID [id number] SP [id number] [place] [id number] Self [id number] [place] [id number] Self [id number] Medicare - [place] Medicare Primary [id number] Self [id number] Medicare Part B Medicare Primary [id number] Self [id number] Medicaid Medigap Part B [id number] Self [id number] ANSI-Medicaid [id number] ANSI-Medicare Part B [id number] [facility]-Medicaid [id number] ANSI-Medicare Part B [id number] MEDICARE [id number] SP [id number] 7C1 MEDICARE C [id number] S [id number] 7C1 Medicaid [facility] Part B [id number]. 5510.0 Self [id number] Medicare - [place] Medicare Primary [id number] [id number] Self 09 [id number] Medicare Part B Medicare Primary [id number] Self 0 [id number] [employer] [place] [id number] [place] [id number] Problems, Conditions, and Diagnoses No Information Surgeries/Procedures Procedure Description Date Indications Data Source(s) OFFICE OUTPATIENT VISIT 15 MINUTES 03/08/2021 12:00:00 AM EST [facility] (Tj Oshea MD) OFFICE OUTPATIENT VISIT 25 MINUTES 03/08/2021 12:00:00 AM EST [facility] (Tj Oshea MD) OFFICE OUTPATIENT VISIT 25 MINUTES 01/18/2021 12:00:00 AM EDT [facility] ([facility]) OFFICE OUTPATIENT VISIT 15 MINUTES 01/11/2021 12:00:00 AM EDT [facility] (Tj Oshea MD) COVID-19 PCR <td>COVID-19 PCR</td><td>Rou elmo</td><td>01/03/2021 11:39 AM EDT</td><td></td><td> </td> 01/03/2021 11:39:00 AM [facility] RADIOLOGY REPORT <td>RADIOLOGY REPORT</td><td ></td><td>01/02/2021 9:27 PM EDT</td><td></td><td></td> 01/02/2021 09:27:59 PM EDT [facility] EEG ROUTINE STUDY <td>EEG ROUTINE STUDY</td><t d>Routine</td><td>01/02/2021 4:26 PM EDT</td><td></td><td> </td> 01/02/2021 04:26:51 PM [facility] AMMONIA <td>AMMONIA LEVEL</td><td>ST AT</td><td>01/02/2021 10:06 AM EDT</td><td></td><td> </td> 01/02/2021 10:06:00 AM [facility] AMMONIA <td>AMMONIA LEVEL</td><td>Ro utine</td><td>01/01/2021 1:36 PM EDT</td><td></td><td> </td> 01/01/2021 01:36:00 PM [facility] BLOOD COUNT COMPLETE AUTOMATED <td>CBC</td><td>STAT</t d><td>12/31/2020 11:09 AM EDT</td><td></td><td> </td> 12/31/2020 11:09:00 AM [facility] BASIC METABOLIC PANEL CALCIUM TOTAL <td>BASIC METABOLI C PANEL</td><td>STAT</td><td>12/31/2020 11:09 AM EDT</td><td></td><td> </td> 12/31/2020 11:09:00 AM [facility] XR CHEST FRONTAL ONLY 77074 <td>XR CHEST FRONTAL ONLY 27364</td><td>Routine</td><td>12/31/2020 5:26 AM EDT</td><td></td><td> </td> 12/31/2020 05:26:00 AM [facility] EEG VIDEO MONITORING <td>EEG VIDEO MONITORING</td ><td>Routine</td><td>12/30/2020 9:46 PM EDT</td><td></td><td> </td> 12/30/2020 09:46:41 PM [facility] LAB RESULTS (OUTSIDE/HISTORICAL) <td>LAB RESULTS (OUTSIDE/HISTORICAL)</td><td></td><td>12/29/2020 7:30 PM EDT</td><td></td><td></td> 12/29/2020 07:30:07 PM EDT [facility] RADIOLOGY REPORT <td>RADIOLOGY REPORT</td><td ></td><td>12/29/2020 7:30 PM EDT</td><td></td><td></td> 12/29/2020 07:30:07 PM EDT [facility] CARDIAC REPORT <td>CARDIAC REPORT</td><td>< /td><td>12/29/2020 7:30 PM EDT</td><td></td><td></td> 12/29/2020 07:30:07 PM EDT [facility] EEG ROUTINE STUDY <td>EEG ROUTINE STUDY</td><t d>Routine</td><td>12/29/2020 11:36 AM EDT</td><td></td><td> </td> 12/29/2020 11:36:12 AM [facility] XR ABDOMEN AP SUPINE AND LATERAL VIEW 61038 <td>XR ABD OMEN AP SUPINE AND LATERAL VIEW 17846</td><td>Routine</td><td>12/29/2020 6:54 AM EDT</td><td></td><td> </td> 12/29/2020 06:54:00 AM [facility] RADIOLOGIC EXAM SKULL COMPLETE MINIMUM 4 VIEWS <td>XR SKULL COMPLETE 18334</td><td>Routine</td><td>12/29/2020 6:54 AM EDT</td><td></td><td> </td> 12/29/2020 06:54:00 AM [facility] XR CHEST FRONTAL AND LATERAL 65962 <td>XR CHEST FRONTA L AND LATERAL 39095</td><td>Routine</td><td>12/29/2020 6:54 AM EDT</td><td></td><td> </td> 12/29/2020 06:54:00 AM [facility] RADIOLOGIC EXAMINATION SKULL < 4 VIEWS <td>XR SKULL LI MITED 35599</td><td>STAT</td><td>12/29/2020 3:36 AM EDT</td><td></td><td> </td> 12/29/2020 03:36:[address] [facility] [address] HEAD/BRAIN W/O CONTRAST MATERIAL <td>CT HEAD WITHOU T CONTRAST 58467</td><td>STAT</td><td>12/28/2020 11:18 PM EDT</td><td></td><td> </td> 12/28/2020 11:18:00 PM [facility] RESPIRATORY PATHOGEN PANEL <td>RESPIRATORY PATHOGEN PANEL</td><td>Routine</td><td>12/28/2020 11:11 PM EDT</td><td></td><td> </td> 12/28/2020 11:11:00 PM [facility] COVID-19 PCR <td>COVID-19 PCR</td><td>Rou elmo</td><td>12/28/2020 11:11 PM EDT</td><td></td><td> </td> 12/28/2020 11:11:00 PM [facility] LAMOTRIGINE <td>LAMOTRIGINE</td><td>Rout ine</td><td>12/28/2020 9:59 PM EDT</td><td></td><td> </td> 12/28/2020 09:59:00 PM [facility] LEVETIRACETAM LEVEL <td>LEVETIRACETAM LEVEL</td> <td>Routine</td><td>12/28/2020 9:59 PM EDT</td><td></td><td> </td> 12/28/2020 09:59:00 PM [facility] CULTURE BACTERIAL BLOOD AEROBIC W/ID ISOLATES <td>BLOO D CULTURE</td><td>Routine</td><td>12/28/2020 9:59 PM EDT</td><td></td><td> </td> 12/28/2020 09:59:00 PM [facility] SEDIMENTATION RATE RBC AUTOMATED <td>SEDIMENTATION RAT E, AUTOMATED</td><td>Routine</td><td>12/28/2020 9:59 PM EDT</td><td></td><td> </td> 12/28/2020 09:59:00 PM [facility] BLOOD COUNT COMPLETE AUTO&AUTO DIFRNTL WBC COUNT <td>C BC AND DIFFERENTIAL</td><td>Routine</td><td>12/28/2020 9:59 PM EDT</td><td></td><td> </td> 12/28/2020 09:59:00 PM [facility] C-REACTIVE PROTEIN <td>INFLAMMATORY C-REACTIVE PROTEIN (CRP)</td><td>Routine</td><td>12/28/2020 9:59 PM EDT</td><td></td><td> </td> 12/28/2020 09:59:00 PM [facility] DRUG SCREEN QUALITATIVE PHENYTOIN TOTAL <td>PHENYTOIN LEVEL, TOTAL</td><td>Routine</td><td>12/28/2020 9:59 PM EDT</td><td></td><td> </td> 12/28/2020 09:59:00 PM [facility] DRUG SCREEN QUALITATIVE PHENOBARBITAL <td>PHENOBARBITA L LEVEL</td><td>Routine</td><td>12/28/2020 9:59 PM EDT</td><td></td><td> </td> 12/28/2020 09:59:00 PM [facility] COMPREHENSIVE METABOLIC PANEL <td>COMPREHENSIVE METABO LIC PANEL</td><td>STAT</td><td>12/28/2020 9:59 PM EDT</td><td></td><td> </td> 12/28/2020 09:59:00 PM [facility] XR CHEST FRONTAL ONLY 05225 <td>XR CHEST FRONTAL ONLY 06672</td><td>STAT</td><td>12/28/2020 9:41 PM EDT</td><td></td><td> </td> 12/28/2020 09:41:43 PM [facility] EKG 12-LEAD - CMAXX REPORT <td>EKG 12-LEAD - CMAXX REPORT</td><td></td><td>12/28/2020 9:20 PM EDT</td><td></td><td></td> 12/28/2020 09:20:14 PM [facility] EKG 12-LEAD - CMAXX REPORT <td>EKG 12-LEAD - CMAXX REPORT</td><td></td><td>12/28/2020 9:20 PM EDT</td><td></td><td></td> 12/28/2020 09:20:14 PM [facility] EKG 12-LEAD <td>EKG 12-LEAD</td><td>STAT </td><td>12/28/2020 9:20 PM EDT</td><td></td><td> </td> 12/28/2020 09:20:14 PM [facility] EKG 12-LEAD - CMAXX REPORT <td>EKG 12-LEAD - CMAXX REPORT</td><td></td><td>12/28/2020 9:20 PM EDT</td><td></td><td></td> 12/28/2020 09:20:00 PM [facility] OFFICE OUTPATIENT VISIT 25 MINUTES 12/19/2020 12:00:00 AM EDT [facility] ([facility] OFFICE OUTPATIENT VISIT 15 MINUTES 11/14/2020 12:00:00 AM EDT [facility] ([facility] ) OFFICE OUTPATIENT VISIT 15 MINUTES 09/14/2020 12:00:00 AM EDT [facility] ([facility] OFFICE OUTPATIENT VISIT 15 MINUTES 08/09/2020 12:00:00 AM EDT [facility] (Tj Oshea MD) OFFICE OUTPATIENT VISIT 10 MINUTES 06/21/2020 12:00:00 AM EST [facility] (Tj Oshea MD) Results ID Date Data Source [id number] 02/26/2021 10:36:00 AM EDT [facility] (Tj Oshea [...] (Tj Oshea MD) ID Date Data Source [id number] 02/26/2021 10:36:00 AM EDT [facility] (Tj Oshea MD) Name Value Range Interpretation Code Description Data Radha rce(s) Supporting Document(s) Prostate specific Ag [Mass/volume] in Serum or Plasma 0.02 ng/mL Normal (applies to non-numeric results) [facility] (Tj Oshea MD) The PSA assay is performed on the Digital[employer]visor analyzer by [employer] sandwich chemiluminescent immunoassay and should not be compared interchangeably with other methods. It should not be used alone as a screening test or diagnosis for the presence or absence of malignant disease. Predictions of disease recurrence should not be based solely on values obtained from serial patient serum values. ID Date Data Source [id number] 02/26/2021 10:36:00 AM EDT [facility] (Tj Oshea [...] Little GFR Left</content>
<content>ESRD GFR <15 on PULVERIZER TENDER</content>
<content></content> Laboratory test finding (navigational concept) 142 [...] (Tj Oshea MD) ID Date Data Source [id number] 02/26/2021 10:36:00 AM EDT [facility] (Tj Oshea MD) Name Value Range Interpretation Code Description Data Radha rce(s) Supporting Document(s) Laboratory test finding (navigational concept) 2.000 uIU/ML 0 .358-3.740 Normal (applies to non-numeric results) [facility] (Tj Oshea MD) Laboratory test finding (navigational concept) 0.47 ng/dL 0 .76-1.46 Below low normal [facility] (Tj Oshea MD) ID Date Data Source [id number] 02/26/2021 10:36:00 AM EDT [facility] (Tj Oshea MD) Name Value Range Interpretation Code Description Data Radha rce(s) Supporting Document(s) Prostate specific Ag [Mass/volume] in Serum or Plasma 0.01 ng/mL Normal (applies to non-numeric results) [facility] (Tj Oshea MD) The PSA assay is performed on the DigitalAdvisor analyzer by [employer] sandwich chemiluminescent immunoassay and should not be compared interchangeably with other methods. It should not be used alone as a screening test or diagnosis for the presence or absence of malignant disease. Predictions of disease recurrence should not be based solely on values obtained from serial patient serum values. ID Date Data Source [id number] 02/26/2021 10:36:00 AM EDT [facility] (Tj Oshea [...] (Tj Oshea MD) ID Date Data Source [id number] 02/26/2021 10:36:00 AM EDT [facility] (Tj Oshea [...] Little GFR Left</content>
<content>ESRD GFR <15 on PULVERIZER TENDER</content>
<content></content> Laboratory test finding (navigational concept) 106 [...] (Tj Oshea MD) ID Date Data Source [id number] 01/17/2021 06:45:00 AM EDT [facility] (Tj Oshea [...]
<content>CLIDAMYCIN SENSITIVE.</content>
<content></content> ID Date Data Source [id number] 01/17/2021 06:45:00 AM EDT [facility] (Tj Oshea [...] (Tj Oshea MD) ID Date Data Source [id number] 01/09/2021 12:10:50 PM EDT [facility] Name Value Range Interpretation Code Description Data Radha rce(s) Supporting Document(s) Discharge Summary [facility] [id number]/JKYsiFEFji1SzROgsPNe9QEdiWCPvX4SfKOI7mH6zTGS0AQmYHfZyZkKmGGZ0 lbm [file] [id number] ID Date Data Source [id number] 01/06/2021 01:21:00 PM EDT [facility] ([facility]) Name Value Range Interpretation Code Description Data Radha rce(s) Supporting Document(s) Ammonia [Mass/volume] in Blood 50 uMOL/L [facility] ([facility]) ID Date Data Source [id number] 01/03/2021 11:39:00 AM EDT [facility] Name Value Range Interpretation Code Description Data Radha rce(s) Supporting Document(s) SARS-CoV-2 RNA 2019 nCoV Real-Time RT-PCR: NOT DETECTED [facility] This lab was ordered by [facility] and reported by [facility]. ID Date Data Source [id number] 01/03/2021 02:09:32 PM EDT [facility] Value Range Interpretation Code Description Data Radha rce(s) Supporting Document(s) Specimen source [Identifier] of Unspecified specimen [facility] SARS-CoV-2 RNA 2019 nCoV Real-Time RT-PCR: NOT DETECTED [facility] Assay Performed [facility] Influenza virus A RNA [Presence] in Naso pharynx by Target amplification with non-probe based detection Not Detected [facility] Influenza virus B RNA [Presence] in Naso pharynx by Target amplification with non-probe based detection Not Detected [facility] Respiratory syncytial virus RNA [Presenc e] in Nasopharynx by Target amplification with non-probe based detection Not Detected [facility] Patients first test for [facility] 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 [facility] Patient has symptoms related to condition [facility] When did you start to experience these symptoms [Date and time] [Phen X] [facility] Patient was hospitalized because of this condition [facility] patient was admitted to ICU for condition [facility] Patient resides in a congregate care setting [facility] status [facility] ID Date Data Source [id number] 01/02/2021 02:09:05 PM EDT [facility] Value Range Interpretation Code Description Data Radha rce(s) Supporting Document(s) Consultation [facility] HUJLRl2iViCLYzCf96/ZKSpwSIIjq6RsEGwuVJf5MQqkQINlP7ZiKAK0iV0vKHP6QLaGCcRnOvKnIYQ0 lbm [file] ICAgICAgICAgICAgICAgICAgICAgICAgICAgICAgICAgICAgICAgICAgICAgICAgICAgICAgICAgICAg ICAgICAgDQogICAgICAgICAgICAgICAgICAgICAgIC AgICAgICAgICAgICAgICAgICAgICAgICAgICAgICAgICAgICAgICAgICAgICAgICAgICAgICAgICAgIC AgICAgICAgICAgICAgICAgDQogICAgICAgICAgICAgICAgICAgICAgICAgICAgICAgICAgICAgICAgIC AgICAgICAgICAgICAgICAgICAgICAgICAgICAgICAg ICAgICAgICAgICAgICAgICAgICAgICAgICAgDQogICAgICAgICAgICAgICAgICAgICAgICAgICAgICAg ICAgICAgICAgICAgICAgICAgICAgICAgICAgICAgICAgICAgICAgICAgICAgICAgICAgICAgICAgICAg ICAgICAgICAgDQogICAgICAgICAgICAgICAgICAgIC AgICAgICAgICAgICAgICAgICAgICAgICAgICAgICAgICAgICAgICAgICAgICAgICAgICAgICAgICAgIC AgICAgICAgICAgICAgICAgICAgDQogICAgICAgICAgICAgICAgICAgICAgICAgICAgICAgICAgICAgIC AgICAgICAgICAgICAgICAgICAgICAgICAgICAgICAg ICAgICAgICAgICAgICAgICAgICAgICAgICAgICAgDQogICAgICAgICAgICAgICAgICAgICAgICAgICAg ICAgICAgICAgICAgICAgICAgICAgICAgICAgICAgICAgICAgICAgICAgICAgICAgICAgICAgICAgICAg ICAgICAgICAgICAgDQogICAgICAgICAgICAgICAgIC AgICAgICAgICAgICAgICAgICAgICAgICAgICAgICAgICAgICAgICAgICAgICAgICAgICAgICAgICAgIC AgICAgICAgICAgICAgICAgICAgICAgDQogICAgICAgICAgICAgICAgICAgICAgICAgICAgICAgICAgIC AgICAgICAgICAgICAgICAgICAgICAgICAgICAgICAg ICAgICAgICAgICAgICAgICAgICAgICAgICAgICAgICAgDQogICAgICAgICAgICAgICAgICAgICAgICAg ICAgICAgICAgICAgICAgICAgICAgICAgICAgICAgICAgICAgICAgICAgICAgICAgICAgICAgICAgICAg TFUdVJKqHAWcMHMlRXAbTWz4P1whCMLyGNQgJD4bRA d3Jz8+VYyXXyKjVAT8cnTiuT2CVS0au2CdVYzyXAFks8MpGPo2MR4MFZFiLPhpGQ1LQYznuf1TUQFoSZ BltLYKa5nmTnRlYFL2ZVWoTtfcIK8CDCMqU4gnblCgLIHgTSUVHCkaHSKEEUbxZMIKEOPoRHMcGcDsWz QkUWPaMN0OJJCqP441pnGzZW3JFo5YGhRpKX0kxp3X QaRiHCMaWhmSJhb3LSubHU9LjEQhhKUrFzZfQKZBTgDpV3tvi9NlIyYqUUICTDkkYF3Vx1WcmRNzQBo+ Id1PGG2wz9NzQMqtSeHoUU4ypl0GJXeSVvNjI0ZlaJbtQDFuiwO3gMExCMQ0OZ4lzXChPIdeJCWQck92 KRHkVC2VMAR8XMbeMj6aQQEtBPY9RdFnMILWSC9ZGC JiFYPbhOMbEAUaNQQEFO1SJNypXQV7RKOtdwFznXVsCXqzDY7SFRPqyxXhCgKyMTFCJDa+Yw5DGI6rb1 OfMNqaQjYbBQ8rkj9VHDiCQoBoB7H6wHKgE4T3KNnaRr4DKNVdAKVyHwLwMVYQVZzaAE7KKU6uupX1AR 5OqCStPSTzKHRtpNWfASi6Y17dxCTnLBawPS3KDLD+ Faith+Sz0ZOPPiDKZqTQXkHuGqJLJFQiWoI5NsB3CEt9PcJ3SdEF83uFujjbNgLOrsUM8ECH3lSXTgUOXN YZ0RpIIjaS8tjeAnGTThAWUFUlQhW84vnDNsDSTeZRW0XQHrZc8QGAApA8VckiCyqZvgveVmHNHlJNUB FT0KWVxyxbDhhACvaIraGS91bKpvHG7JQt4ZTfBaRJ 4jyf1KtFQkXk8LMQMaMY1PPGJoAKEpNSAjLUR7PSDwXsIfGTiqGCBeNREnMKQ4TRRwVLByCO3IKpDfHR HzRMUwGTMrMSQeDLJuyt7ELRCdJJB6MgxvFKZbOKNdLKNaWRnbPNZfGXDeDMR7XWDlYPOxWZ0OGjBgOX BqJYB9SmXaFTMdXTMwsk8DZCOdBQMjBFJtTROoIYZl GCVaCAskGNJmQKB1FSTvUOAtJANsMA1BLvChDUVqGNZsTBXdONEuQWGxgx7TQGLjOMLwZHTiTGWnBOLp ITLrEMqeEWIqUMN1FOHuKFQwVTDqQI7CFuByGUZtOPS0McJvVPKlLCPwot0AOLYqEFLxTsF0OzSxBGSt UFTdWGbpRAWlKBZbCCdvTZUoPIBfGH4MXrDcVONeWG VdPLigERHzKKBvnn9MJCUeVHQwIDU1SOQbWLNwANTxLLeuUTKpMIN1AzQ0CMToKGWyTR4QWuZdZVVmSU Z1VzdeUFTgNPTyiz8FZFAlWFTrPHG1KJAoOXMlTBLxOFvyXLPsSCJ0TrguEXYpQJAxVG1AOiOxVPLuYE M5ElpsKFFlDSLgsn7KFLBaYYYaLoZ0ORVcNTJiZPRl VGlpHNMcSKD4XeY0EWJbKMJdSC0GCrUjCTRvFxF5LfNxMSOzESLfnf6LOXWxZRJqMkG5HJQrOTTvYNDx FZmuTXVhEJG8LZF7OMYfGMLlCM1WOgPxALKuNqb2DodoJLPdXZHbss5UQGVjZLQdLEP3FVOeJAXvFQSq EQwcRSVmDXM0LCPgCMIbBDVeEZ6KGzBtXTTkFMBoYP QwDLWdXVNokl7PJMXgKCM5MAAlDCWmLCCgUKKuCCtiMMHzZNHkVjTdOJIuHZEpBV8ESoDnUKTtBNO5OV VkDKHzKLNiqv8NHHPcZMO5XOVdUVPiFSAkMWJjTCgtLCIgUWSvNFUpVLNrZDXxUQ7XBmRdHHOpLEHnGs WkVHXcQFAulu3BWXPtWIH7TxW7ThMjDABwTBNnMIlo EKCfHAEfJtAiWMBhWUDjHS5ABjDhRVrhVDREWnb6MScqL6b7PWXpQK7MI2Coj6IpAgokKXEWXWtoAU1b peInZUZzLf2KG2qUBxicQOIcRiGwAwPfYPQ7GUQ0AfE8IVX7U1Y5OeA7GRH4Bl6kNYRaXDLiFtAiKFI0 NIy2IjkiJOshGmvgMBxwNqrpYsTbSwSoBE2OIm1HTrA6AOQ7vKNeLh4KBRV7SCOZLcPxIN9ORTm= ID Date Data Source [id number] 01/02/2021 11:05:27 AM EDT [facility] Name Value Range Interpretation Code Description Data Radha rce(s) Supporting Document(s) Ammonia [Moles/volume] in Plasma 57 umol/L 16-60 [facility] ID Date Data Source [id number] 01/01/2021 02:09:51 PM EDT [facility] Name Value Range Interpretation Code Description Data Radha rce(s) Supporting Document(s) Ammonia [Moles/volume] in Plasma 231 umol/L 16-60 [facility]zed ID Date Data Source [id number] [facility] Interpretation Code Description Data Radha rce(s) Supporting Document(s) Leukocytes [#/volume] in Blood by Automated count 5.0 10*3/uL 4-10 [facility] Erythrocytes [#/volume] in Blood by Automated count 4.22 10*6/uL 4.6- 6.1 L [facility] Hemoglobin [Mass/volume] in Blood 12.9 g/dL 13.5-18 L [facility] Hematocrit [Volume Fraction] of Blood by Automated count 37.4 % 4 1-53 L [facility] Erythrocyte mean corpuscular volume [Entitic volume] by Auto mated count 88.7 fL 80-96 [facility] Erythrocyte mean corpuscular hemoglobin [Entitic mass] by Automated count 30.6 pg 27-33 [facility] Erythrocyte mean corpuscular hemoglobin concentration [Mass/volume] by Autom[facility] 34.5 g/dL 32.0-[facility] width [Ratio] by Automated count 13.6 % 11.5-14.5 [facility] Platelets [#/volume] in Blood by Automated count 166 10*3/uL 150-400 [facility] ID Date Data Source [id number] 12/31/2020 12:03:41 PM EDT [facility] Name Value Range Interpretation Code Description Data Radha rce(s) Supporting Document(s) Bicarbonate [Moles/volume] in Serum 25 mmol/L 22-29 [facility] Chloride [Moles/volume] in Serum or Plasma 98 mmol/L 98-107 [facility] Creatinine [Mass/volume] in Serum or Plasma 0.68 mg/dL 0.70-1.20 L [facility] Glucose [Mass/volume] in Serum or Plasma 115 mg/dL 70-140 [facility] Potassium [Moles/volume] in Serum or Plasma 3.5 mmol/L 3.4-5.1 [facility] Sodium [Moles/volume] in Serum or Plasma 135 mmol/L 136-145 L [facility] Urea nitrogen [Mass/volume] in Serum or Plasma 8 mg/dL 8-23 [facility] Anion gap 3 in Serum or Plasma 12 mmol/L 8-15 [facility] Osmolality of Serum or Plasma by calculation 279 mosm/kg 275-300 [facility] Creatinine/Urea nitrogen [Mass Ratio] in Serum or Plasma 12 [facility] Calcium [Mass/volume] in Serum or Plasma 8.8 mg/dL 8.8-10.2 [facility] Glomerular filtration rate/1.73 sq M pre dicted among non-blacks [Volume Rate/Area] in Serum or Plasma by Creatinine-based formula (MDRD) >6 0 [facility] Glomerular filtration rate/1.73 sq M pre dicted among blacks [Volume Rate/Area] in Serum or Plasma by Creatinine-based formula (MDRD) >60 [facility] ID Date Data Source [id number] 12/31/2020 07:08:27 AM EDT [facility] XR CHEST FRONTAL ONLY [id number] RESULTI nterpreted by:Tomas Oshea, MDPROCEDURE INFORMATION: Exam: XR Chest Exam date and time: 12/31/2020 5:15 AM Age: 65 years old Clinical indication: Other nonspecific abnormal finding of lung field; Other: Fever, possible early infiltrates on prior cxr TECHNIQUE: Imaging protocol: XR of the chest. Views: 1 view. COMPARISON: CR XR CHEST FRONTAL AND LATERAL [id number] 12/29/2020 6:19 AM FINDINGS: Tubes, catheters and [...] rce(s) Supporting Document(s) ID Date Data Source [id number] 12/29/2020 09:26:00 PM EDT [facility] Name Value Range Interpretation Code Description Data Radha rce(s) Supporting Document(s) History and Physical [facility] NIFIFv9yStSUUtNq47/YCAicVVRmg5SrGYazURh5NXsmMPKnA2LpXSU4eP3xKCG8IPdWTpRdPmFcXNLf [facility] [file] ICAgICAgICAgICAgICAgICAgICAgICAgICAgICAgICAgICAgICAgICAgICAgICAgICAgICAgICAgICAg ICAgICAgICAgICAgICAgICAgICAgICAgICANCiAgIC AgICAgICAgICAgICAgICAgICAgICAgICAgICAgICAgICAgICAgICAgICAgICAgICAgICAgICAgICAgIC AgICAgICAgICAgICAgICAgICAgICAgICAgICAgICAgICAgICANCiAgICAgICAgICAgICAgICAgICAgIC AgICAgICAgICAgICAgICAgICAgICAgICAgICAgICAg ICAgICAgICAgICAgICAgICAgICAgICAgICAgICAgICAgICAgICAgICAgICAgICANCiAgICAgICAgICAg ICAgICAgICAgICAgICAgICAgICAgICAgICAgICAgICAgICAgICAgICAgICAgICAgICAgICAgICAgICAg ICAgICAgICAgICAgICAgICAgICAgICAgICAgICANCi AgICAgICAgICAgICAgICAgICAgICAgICAgICAgICAgICAgICAgICAgICAgICAgICAgICAgICAgICAgIC AgICAgICAgICAgICAgICAgICAgICAgICAgICAgICAgICAgICAgICANCiAgICAgICAgICAgICAgICAgIC AgICAgICAgICAgICAgICAgICAgICAgICAgICAgICAg ICAgICAgICAgICAgICAgICAgICAgICAgICAgICAgICAgICAgICAgICAgICAgICAgICANCiAgICAgICAg ICAgICAgICAgICAgICAgICAgICAgICAgICAgICAgICAgICAgICAgICAgICAgICAgICAgICAgICAgICAg ICAgICAgICAgICAgICAgICAgICAgICAgICAgICAgIC ANCiAgICAgICAgICAgICAgICAgICAgICAgICAgICAgICAgICAgICAgICAgICAgICAgICAgICAgICAgIC AgICAgICAgICAgICAgICAgICAgICAgICAgICAgICAgICAgICAgICAgICANCiAgICAgICAgICAgICAgIC AgICAgICAgICAgICAgICAgICAgICAgICAgICAgICAg ICAgICAgICAgICAgICAgICAgICAgICAgICAgICAgICAgICAgICAgICAgICAgICAgICAgICANCiAgICAg ICAgICAgICAgICAgICAgICAgICAgICAgICAgICAgICAgICAgICAgICAgICAgICAgICAgICAgICAgICAg ICAgICAgICAgICAgICAgICAgICAgICAgICAgICAgIC AgICANCjw/iHAlC6qzqIWtmsY5Z2tgRv2GUu6CNI9dj7ShOWNnWIoqweMaSpvDPsEwPKOrBwwMNwt2ZJ sgBT3KrSVfX4GlW3FnUYxbJF2HXTSsVHJheMNtLFUzGFOmBsB5XWOrJCozOE2DaHIoXElfGRUaCFPvMm NiTPTlJYWmYKKcYBHkBJKXALMgJVMcXqSzJQyfQC9Y x6RxfXU9KEq+Lg1JXU5wn3ScQOhxBAQxRW8dwt5LIWrPPbVyZ0IbvtQ5HDAoSZZqBg5QFFYkUVQnfLNr XSEfMJUETjHaR0RwlX56RIZBGt5+LQlddxMbRnvAIoOrPQWyh3WqXRq2LR9UPQRzPJf4iVZeAGTWXNU9 UMzsbLXoUTXlzzjlzDCdPCUTBzFKWEE2UUxlWt8vGN FkVLDwMfFfISIHWX1PPIKiEJPpwOIeZWIoQRKVJJ7GLVapETQ5MJUpgiMvuDWfISruVN6EODCdfkUmMp AgMCBSDQo+Bp9WDL5se4MqTCkcHzAfDH0vwz7WOVrAFoOsZ0K3mSQoD3S5HFiqEx6HKTQwOGErUxhrQI ARUDuiGD3ODV2qdbT8KM4NkZKsAKGwMNDxqDTzSAu3 H40tdUNoALenGO1LDRT+Faith+Jg8PYBNsDKYtQTTsCfUhZNIPVgWhC9RbT1RKs8KrF6QuOZ05hPtfviBd UIqyRC2MXQ8tHQEwABCGVU0QsZRnjM8mwtAcFVBvMDMWUtAmQ51vvDBhGMNmODX6MQFwVq1YPYHfM0Bl azUlrPfprsJtAKFjPHIVPR4FRJdfifQbwKWfiUuqNZ 07yFteJR7WLv3BFeVgQZ5qln6FvPEcUc7DGYMyYk9DFXFkWOArZUWlQCI3DCJrHpRwGAenUTNbJKYbEX C1FKUrKGGhVZ0TYvIbWSFqHgN9UAReYUCiJAGuxn6MAJXrSEEhNyHoQUWdYDSdZSAdRAxpNJEeNLGrAN P0TIFqHUXlBZ7OOxVgWKGrFFNqQytcSFAsFRIbkg8U LARxECHxEYE1KVPcOZKwJHTaPUikCYApBZA7SnRxQZSpLPLnTJ4GKkGbNEDnMJg1KHHnPXTrVJXzqg0A KDHzOGHrXJn1EQFwFADgKTWlWIonTWGpFXApJDB2IUTgXIFwVH2RZuCaHJAuAHF8QXvcTLHyYKMtex2T CPJcYIXaSLSnRGAjMFWgDGCzELamVWNgIYM5WpRsQO GnZLXiCV6AMpOeLWJzEVK8IDAdNJBcVAQdsa1EYYBePDUgUfDrPtZhWFPqBCMiCEzzOCCqEBO7FxUlXD DiKPLwJX5RYgYdFRDzKCA3ZAEbINUzNFZryo7LDOUaMUIwPgs0NSQdSIYaLZDpONfnCVYdMLC4OTV4EQ ZuOIGiUB9DPxIiWHBfLLjeMfYmGYYcDLMqdv0KVZEc RMGkXJB4LPIlAOOfVPJzYPshAFEvZAQ7MhelDTKqXTFmUF5LChXsEUFiCCi7XtYtCTNvSKKifo9GLVJf DPIrSKp1NZRbOTYtLZKcDCliNBNfPKHaCTo9TMJyOIJeOZ4RGoDjRIHcJxRcRNslEBDhRNIeam7VDOLe MDAzMTYyNiAwMDAwMCBuDQowMDAwMDMxNzcyIDAwMD AvZD3QWbHdGMPwVqBvQUbtLFExPKGvoo9RRYUfDQCoUkP5LwVsLCOjGVBpGAqhGULxLYAjJaX9AXLjUV IdYE5MTrMdCLWwVcX8QyThHMOyEGHphk0WzFCbiTwlcm3QUDmBDs6JoJikYQHgVEkiYu9fxDJaEvJhEG QBYm9EzxQvXVXaKNBQBIioYQYlUXLmVTG7FZOlYfM9 FzH1MgVtPqH9BYqtGGAwKZB5JWQaQbX1MaF5COu1E0GkXzMsPmc4KGYjUrAgEMQtNBMyBbRjYeO+IF0g DQo+Rb3Kc4NsavR3xrTiSRwqQTUcMg3IXJRQP6BFYp== ID Date Data Source [id number] 12/29/2020 08:37:07 PM EDT [facility] Name Value Range Interpretation Code Description Data Radha rce(s) Supporting Document(s) Consultation [facility] OHDWAk7fNhNQTtXj49/AKUumHRLjc2AxBKibCAz9DCfvPEOfX2WqOMD1lE8aEQS7WZcKEiJgYpXaLIKi lbm [file] x/deodorizer operator+c/2sWRopckVpf0fXhjqut/bJuDW6xtTDRM35R [file] FLYING SQUAD WORKER+Zb5UQRIlIPj4F0V7XNXeDJw6F6LCW5AJNCBgAUbwLKskWBHnPPd9P2Y0BASuP3EWZ9Jzvzbcfk5+ YX9FI23HHZSoVUu9W1P4tQIlE7V8xBlKyFW9GT9TDO7YvQr2rQEkaR1+ZS4EO9JPKoMvGQv0V8X0sDPf V0S8iQtZtIF7RF4SEM3UyRGzQPOlzcCtEl6fF7JQCI rPHsUULIO8PU1WuMCiDR3GtBNKW3GmqOAmLo0nODknxTLyoR6dGz2zEOggQR4IQzTGHNrSOYN5GG4VoR TcPR5WyTYZE9UleBDnJw9zVLmqzLLpxh8+HN4LFKIcJi6RBf5+ADyunsOxBvsUIzX2XYHlz7DuKDv9WQ 2PRD9whNdyUBW4Xq3PrPD0uQHeW0vPWU6DtIXjW34n eQMeVXRdPi9DKtJ8odHkuA4TYR64vAShe7W0XUCiP5dkWYlpg20dTWjnANzLLM3nNZUZASxwKFhgHGW0 XgKwjvmvNSXbTd8YAwHfJZp1aA7fiPW0TJE8FqzkmUEfNWvfPtKdKtWpRaP3aNqtyhy4DLqlPP1uUXby czptZXRhLyc+TVmgMVDqUPBnGleEGWBlcO8mghF6dd SsWIlydWHuKm4sp4x9BvzdBx2nUg9yMCq1KbQlQyDrGYVvOz2toU12MOzotfFdIf5TDbEdADS6E1KeLm pSREY+GMudDLeuqFv7jBVhYHLaOo3MZKGvRGBcJPLeYRSpEHFgKMFnMSYiZLYcZMFiQURrJCLjOLLtTR AgICAgICAgICAgICAgICAgICAgICAgICAgICAgICAg QENzLPRsDNMlKRKuHEIrRRTwIKLoNTBfTHGtKHMnQS7VTRWqMMAaTDWkWOIcVERfMBZvSXXlLRJlJTFw ICAgICAgICAgICAgICAgICAgICAgICAgICAgICAgICAgICAgICAgICAgICAgICAgICAgICAgICAgICAg BJUyYMVfQUBcDMEwTX6EZLIjIAYuEQMzABZsXSBqSO AgICAgICAgICAgICAgICAgICAgICAgICAgICAgICAgICAgICAgICAgICAgICAgICAgICAgICAgICAgIC QqFLOrHNMiIODnVODdNHFkGVLvBWYnGW5XIOWlDPTbUOGdENKwEPEzHDSqGGCoPRCuQERtFBFmLYIzLH AgICAgICAgICAgICAgICAgICAgICAgICAgICAgICAg MXYoNZVjGNLmZAPuMUFiBSAwSRZsLSQnEPTaYGYnVYKhZJ0TUYYlZJFwMGVrQEPqINLcQWWwHZPgXRRt ICAgICAgICAgICAgICAgICAgICAgICAgICAgICAgICAgICAgICAgICAgICAgICAgICAgICAgICAgICAg EPPnUBMsEIYnJJNrDZZcWJ4VWTUdEOQeADYyHJPoVX AgICAgICAgICAgICAgICAgICAgICAgICAgICAgICAgICAgICAgICAgICAgICAgICAgICAgICAgICAgIC AtBPYwLMTwPPTdRWGlSSJoAGIyYPUwTFEcAU3WQFAaDLCkBAKkRMFpUFLpEJJfOYIfNKWvKWLiAUAcTX AgICAgICAgICAgICAgICAgICAgICAgICAgICAgICAg QKAfATXsZNIbFGDlZIIfCRRgVFNyLDDdQPCgTESiDWEsCDLiSA4OTZOcTOBvVQFtJQXnKTPqJYHuKBRp ICAgICAgICAgICAgICAgICAgICAgICAgICAgICAgICAgICAgICAgICAgICAgICAgICAgICAgICAgICAg QSTjBZKpCKQpBRLsZIOeVIBnLV1YHXInZDTxFYPsKD AgICAgICAgICAgICAgICAgICAgICAgICAgICAgICAgICAgICAgICAgICAgICAgICAgICAgICAgICAgIC YaTYGuTQJuHDDxTYUuUTEwISNnWSWfTSQzYCWjQA8WFPVqBQLkXANrMSEjKDLuHACbGXJlETPpHFScRB AgICAgICAgICAgICAgICAgICAgICAgICAgICAgICAg EPEvOZGbCYJaLOStDWSyUGFqANQxKZDnCUNiSZKxIZHoJBSxEUWxNA1DUT94qXHme7R0YGTkJA5cuph/ Yk9LZNliywLfvZYfHP6EMcDhEK0kbc7XBoSyQI2uth3DFPrVEhBbU1G8kLAfNXVwLARNIwXeO37xMTgz Vz23SIcfCYVcEcHePIn9Wy1KZyKxV0zbHHXpPoF5KS KiHwH9URDhRjC3PVPyHpGyRGTqUEQeGNVyHREARMD1FWCuHiZaZXswNN0Mc1RebNA3UIo+Gc6ZGY8vq9 PaSSihOpZtJU2eah2NWGiXUxBmQ1TmkgA0YOD0MWUuPo5AFMTcNBRatWWaLSEjXIHMQkZfO7ZpoP37EG ENCj4+IBdehaJwHttNSgQ4REXds2DwIEb5YM5OLDDb ZIm1dITgA23th6QpbKBbFwknC7KjCF7tKDeltVdmWQAPEtCNXUT4TKhvKy3jYAPeGZQ8TjLxOVLHDF7I YRMtXNWviIQrXYXaKKPLJR7LZFplHLT2JRVxikZgnHTvZUdkVI5SRFBultLeBcqpQOJAVGy+Qh2WHD7v m0UrIKgcAVYiIS1zxg8IELiOInXwI5O5gXCfI7G3CF qdTj6XRTCpHLDdLcAlSSEUIYwiZB6CWV7gymN8GF0FxKZmWREwRFFudEXfFCq2N02tpPQdFDvsHC1LBK A+Faith+Zt3GOFVvAZVcYPMlWsZxQWGTDrDsH0ZoP5WSe0TuH9OgXU54kWkgxnHpPWndQD1PGA6gVVHrSU AAXK6GxGDpuD7rnsQfMiIbRHUMJaQaW94ivKLoFGUz RIV3BVAcHs0INIQqV7JzhyImaHrcfeFzQLBuBJEMPJ6GKHoziiOgtNZqbOhfFS82wCjhWF5LRl2RHmZr ED9pfu0ZyPVmJr1QZUO9XO0YYSSdXRHsQNCeSFX0TQWiIrDzQOzcDHBlGAIrDJX9KCJpSPCaZY6KIvDc WOTgFpDmSeUzKUXjRSLzvb3RNLIaKXI8LRryKVHfHZ CwIZNrBQnxTLMpFXTtUNQ9VRFkIUPuGE8ZVxUbDOGvCVYcZpLaZWUyNPXyou1ZLGEzTJNgMII3QVFmCP FyFOObELhrJLUpCSV9CMJ0EVAkFSYqPF2LYuAtTWZzXDrqYcPeXIRzBIIeau2BIKEiEZCgFYB9XJBcKJ WbIKDjDNgjTCYsOZBgCmk2JBBjQTFvIZ1KCrBgLUEk HLW1IUQiXDVrVAUctf5JGFWgKPCeSss9CmWuQYBoYERfSWcvTJAaLXG4QJt7RUGiMZEsGH0DLnUxTGUh IYTsDIQrFOQqEBJirh1XOEYsXCKnVhA2OnYqSXScBNVoTAxgQFZuJBX1ZEV1MFGuVUAqQX9YBuYqHKBl IXb4DAhwNIQqBBOryr3WLRXxCJAuFAGgEeGgZUUpTC FjMJymCJOoQAY6Pdi0EAQfHMFuYN6CIcHmDGRfVVt2BRfmUIXuYHCipp0REIGwOMOuYPf6CHWzUIBvYO MpALvrVLEiUQXkJJL6XKMyRAVhNE8KFuXiTTNmRbChOYdyKNVyPJGteh9AYPHdANEeOTA4PORvTLRdMY PjJCcaOYGeNPTeJEh9LZPjESWwSV4JSrVeYZPzTPX5 RyTjUINyUJMvfh8KJHHgCVP5USTjXGApLSDiIOAmYDuvUCXsDPC0RyT1KWEbORJyEM2CJtYnHHHwDIE7 NTqyCJEpYCQald5AMMJqXIB8DhHiOXViUUMyZARzVCjxABKkWSezAnFbHKTcASJoBY3BWwYaJWMxHlZi JyMhGDBmQZPwzv1GMTGqXBZ9InE8TGFnWSGyTUIcVO cgWUVzVFkuGHI3DXNhQSNvOG1DQhHjCBWcInRiVJShNBYfFDJojh1NGKTkQOZ7EnO3NRQhMSJkAYPjJU uqTSLxDKm0YMS1QQJnIDRfFS9DMoRsTRBtAzAeGktkHJKeIRApag1PDJUwBYR5DVP6KWTjCPXeXSSwZW h6voCshJXcLUl6JG4GZ7VmuyHyFPLKMe0Ss556FDQ9 LLJtJa8SX5xtWh6kJSApQMDCEb5TINt7BnRwIKZ9YuS4Cth7NOX6AQIoEPW6MNGtXVknClXrXQC+IDxi K3C5QxRjWWGjQXAoZVrzDpE7WTptW4FbM7JyMJNwWA3kPUEFVi1+EFfjoUUylDkdCPWBPkq1QIJzGNvo HSKTPh0H ID Date Data Source [id number] 12/29/2020 04:28:03 PM EDT [facility] Name Value Range Interpretation Code Description Data Radha rce(s) Supporting Document(s) Consultation [facility] CIRREp7xAuIDBuMm25/VWWwmFBVkf9EiZQucIGe5VLeiQWXkN8QoCFR9zU9jUTW2IWjCWzDpThKhSIMw lbm [file] jiMMG3Rn9EPOTSA8DEXe== ID Date Data Source [id number] 12/29/2020 10:46:26 AM EDT [facility] Name Value Range Interpretation Code Description Data Radha rce(s) Supporting Document(s) [facility] IDZLUv7uShDQPcQry4IsEuAbWWXzMC8dlyu4H0K0uICbO7NdxKEpt3tlW0IkF0GwIUAsVMAMJN1ShZHd jb2 [file] ZMqTKU+mPIXyFMpTKE+hPIXyFMpTKE+hPIXyFMpTKE +hPIXyFMpTKE+hPJXyVMpTKU+lPJXyVMpTKU+lPJXyVMpTKU+lPJXyVMpTKU+dRBP3acKO1KgDG8MfRB 9BioL5CDuF2hFolZYLEJ1rLAE0rdS8uoFbS6V8jiA3vtNtR8V8hzK5beAfY6S1mqK4aiUqG0N9ijS2em VsO3o7zqP1uxMqH1n8fkS8apCrO2u4ydF4waKsH2f9 lhHGkzXij1F5q/LJwrUlw1X5a/PWerIen9F1h/EOqeOww1Y3b/ZGbzTsc2E8i/TOksGbt2C5k/JMyjMp z6Q8k/DFfjQth3T8v/NznWpJId6d6yYArcehKIia1gxOabqzXa3zpGldph526rle2+yxYD0ody5v+dIl I6aaS5v48EKsBqNzM542lSce+xInO2ncr6DUyA1i4G Cjhxs+XPghXQAiXQgiXRAiXRgiXSAiXSgiXTAiXTgiXUAiXUgiXVAiXVgiXWAiXWgiXXAiXXgiXYAiXY giXZAiXZgiXaAiXagiXbAiXbgiXcAiXcgiXdAiXdgiXeAiXegiXfAiXfgiXQAjXQgjXRAjXRgjXSAjXS gjXTAjXTgjXUAjXUgjXVAjXVgjXWAjXWgjXXAjXXgj XYAjXYgjXZAjXZgjXaAjXagjXbAjXbgjXcAjvcgjBw/kcD4hnN+6WQWF+FXHlnwexrwYCUXSXSahULpL TNPIu8qHKghbISCe7AEWDlJ6OEMYh8aZAoSaSOlUu4dKddvNEMYxw9nTJu5g2YWw40B4FzO53IAbxCiw WCXvJiIc4l100fw++Magda/Kp048uaatxt+RoUD7Vlr dDh63gYhq2sDOUR0q/yuBwUAxKWkKXICDdk17B+izfePW34KsrylYwm8i8lfAwQ0sKw21tDmMp3i/dJB pO+pMlPTHKY5fMzRjtq1jZkVd78F+mLoQtI0c3ekJeQ0a7qZ7gUXPO5b2YTbaT/eNoNEbZs29masT/nu YnAP00pCdL+jgEGd8r/0bDvv3zDluXtND7U7CLVtD/ mCsLekALGBUlVK5szUumnv04lLFhr4olTuI7VG9xnmlun6keweDveUYOn7HQtUdPKnimQWFReXodUYVI Y6kHSt1tIgj6nmfh07tja1vnewTwa4WBi7wQfZalDFzsrC3/BDKiZu33IP+uTLoTlnpzbR9TPhYHFCUx UbebdNOZESjKAo6WzH0yNZlhlRak0bLF9MIMiLwKqd smGkyTShMMe65K5/9mPPjGcx1Fr5u+Puul//fnQLQhbc1//q3l6rde730hx/OF2iuF1Xbl4XEZn0DpuN PFc+X27xerajO8plfHkuvvhSl7ch4GsxaudDm2av0Kfkjs4Ed4j00Lgcvs1Nf7g45Ydgnh8Ch9i07Kib cqSUz7mE8DzntgEOp3pL3XvijciZn6jq1HlxreyZk2 xf6SuubwzGk5dv55Eu2fIV0FYnGPZBOyPl3hJj3k2yvSPy8zR77gfJ4jnqwi0EyhQMIb3Fx7fbwaoZ93 kyo8hf2ZxgkzlFm1av5DotfxzGa1rh9Drwmg4Wb8g88Sybho3Js5o99Bzkjl8Jo0gV3NflwqYZa8nC5I tcysNPb7jX0CeonrvHp6mw7PelwjdPq2hb6XwfircZ xWUv9bCaNDROxPfpwdiS5FNn9hMkY9wMpB+T5+Msm4AJ4QdM9KzklqFt0lF7/4XO0wSE/Xxiknk3R6Ks dodQQkv3m4zuifk4N6BszryV1w98j8dlkhk2K+MjvpdA7n82j7hgeax9MwLaxatKOdN2i2vVhyf0TzAf eveRIuZ8f6iJrad7G3IxaqsKmil5a6pHwwt5Z1Bxws sHIdxN5hUNo1UibP24crIq6GPU4U6cnTWnW0hz4zbOzc9F7BnEflCBJ3NQYJlur2K8kG2qiJVUJIEkcv ThFH+DwBM6sZbQEvDvITkAxyjMGKalixkBMssUVvynUKCzZNmFgIRDakopK2KX1nIoiTAhcrg7PRdMHs WoNgashexaGTCdFPcb6BUid4Aa8xK0kxeKatzGTMIG 4TI3AS2pZkACVG4ovhvepwqIWXqAwjRSvWqHJOStICJxXfUzB32VSmsDuQb3OIl8O43QvU23NZrTT0mC ISogCygV65fAkenMPXU2IVYCPe4XL0bBDUccSruBRsGXhQrizWaBnqQa515UrH2wRdZk5iWkOstXcToK tF7lemC7+EBrmZWLnIuWsRQOSzGP0uCvsEbroC44kA INTPmK2rP6rsQ1hTJigAFBGFtIW7MNZeKd7Cz4AQ6OU5XFProTkdfbsKn24MpCW9L9E7o6cWVuc6F0Vd LOHXxTwTjFx3fEtZZ6/OL6Lj+0WXib9JzvLykwqL9gALkb7cKmaO6VLTKeGC5/PUHHXU8eSGfetlnVWc uFqnetC/OojHnLVGeWTk/auD+K0oH1QjQG1keupEsq xA1zp+E6tvUm+deodorizer operator+mExSAQcKV3zjZRwCpPAKo6YG8vnJrdnY7adTek2iIxsUpvUcfGsQE+3OnxbXNv6t [file] UgLmn/NfMdqbQT1QAq5+oxc918oGHxMlR40k67Bb+UPgxhO4i6WnrTdL45whVYDxSh25DDwlUq08/drilling rig operator 1kvdqub/cwNdNpUvCN/a0Ibj6oBFZF4D9pk14J+I7/ Bg5H3faq3+fq69vh3vB/uqQ2RYu285evxqe+M75f/5d/S+pvrx4tq07f4Od+owZ5rLZ/Tnr/96C2ghcJ 2fWt/n/XV/z/rm+E6Qg/sp/orq/3JSwd+03SLRvqqyvrZbu+5yzpRQyGoL7vIwbDkQ4H6Rwg9ge8o1oF N/8hpu4TKhvDxjLAPln+bOD/RPiJ/iuskz2h357quR rJ/tBrwTf+d50cEM7cm6Bmw09eU/RxPWutD7ib74Yxlhgrnn/lhejf4/r3q75+uX6/N7r/X/WVFt+v/9 nG9O6q6Tyup702kzEaUezCl6w7OPR+R8H/yt1ynsMw8vm74fJx7lnX5wuesUGS+8fANC4wP9aRdJfhI7 snFq11aax+5RgMetm992+EKp5rKnjP1GodWeXcs31f DrixLusK8NgWRV10+1XfU+aV4+h0yTemqXooI3LI0n9iK1D5kkiQsoacdt9BvAikfjci7rLgYQ0MCaaC y/861N9dC/mHqbyc2hzFNwI2M6r/3L0lf44OjO+0pVTjYIStPqZ6x+n7sVScBGS1ewKSA4rrIpj3u0P1 t61wqumx/QS0+35WwiIpng0uyGqN49YO6uxXYvidgq C1yNTJRG3vDb/9Uuh+5/t06jyOc1bzhDEP/3ie5TfVLt2V/2zf/UDohukIP/B/4P9E+SfqtW6/EsdXbn 1T9KJuyUzWH4F7LTJxpfh/EdhJlw1pR1/F8IM0o896339idQIl2FM+ltqRfr/qht2NbyR8DxZu48ssST I3lR7pq7STQA+Fw0nU1/WVUXlxyj1bypUNcCIcXNkJ PQjsEF1uB1wi3Li1df1ac+M/2ke67ufe/0T5p+H44ymiiqzYL5veovH3vt+K/6O0Ub9K35WB4EBap9iI SRCKnyRoLPqHf4KR8by38h68wBy/4aqkGg6t+FfJzaEbjc97mIl+CiPdOT/pfq3n5ulorB2rPAmurT8/ 8uSxa9N1/8ehu2OrO/evasxmbalau6n2fiuV5+y3iv 4b2M9eX39l5N+Fy77W4xnIr8mPwNC+97vQe9qg/JCUj+Mup7kyw/ON/+jPhv7s+OqoXhEe/xzSe70u/E P8qf9B3NVKHNQ5Hz6MuDNCx2E29Un00Lrp+rrVx3pqKGI+vaXcHF/Ft5aMi/p21Ldj/HbUd+PxV2Qdr/ Acide9Hm2FrBUtgDrI3Mfg8tgtb6xTQiDk/Y5Ut2vM N/45CUlxgn0BqCpzc6c57l1x524orTYtNlVi0He3Y48Bny7x164d/HuiP0/770clfF5uEW/OEf8VntEm ohRXFs84Ton+YtlxyOhjN1zPxZxXzk3/0Z8n+bTeqrbH1XyF909jWu9M5R+Iz0pNZhGwqnI+RbL57Q5B Dwt0vG89haENIq1K/9wkzKF17pqD+83LvAws59tu+E rjO+Xg+QlFd832K9m1Ijmv01hk1m+1/Yk7I7DC0o3x9UFNoAJ296/qc1rJ+jbHV+f0up61duz+fyD8RP iJ/+m9F9S34d9RQ2W/wc4g1Ip/oiFK2x6M4L2/Lakisha/vt6FN+2U83IjU4du+D+61y3LcgXub5W+sMyzV hF8fcQGE/396zqSrdm6wdA5mq6EnvYEJkw0FMBUp/X RBC+YDdoj29PIgiwiQByJ8sDplCn+I/1dYpolOarf73Qb3X4177jdB0ahy90Ne0i3yieMH5vwl6jqjVV MviyKc0B6MsndR2rrf4xrp1T/qbizuM5utycofqP940Q+F3fvc/wJ7ZUF3RzfbO8eQ7Me7qb4C3vLs/Y HF/3z2miFc+f+tepbi3n2X55BvpIGDMTzu5v3iQa4h Bw4Pmq3fph+jgLolD08+t/9/Q7/qnEw7a1C3/dMLs/R/lnOTqH/MwnreUtFRtzW5k/wlcn/IDKsw1wN1 1pzi03Y6/oq8v3r210DJAJ1WGO7DGeHptHaa/ULPHzfvVyxqDl+tfX77vw1npRe2wQzy+1x3ncUglmWK O+zrNWRpyqGL18m1fYEo6nd8/Ueq6/deKIjYMOQ9YC /H8duz5hYw08k01aeRbof5yNcxW/6qnrW90zx1eM29Na+F/jTpTuwnbLDxSb44djL6ntfvpT2f8378+O r+Wh7U7h49lRg5n6P/f4nlF9jFdvyW9J/HadaK9XwOlV90a8P/hwRxvUFj3718Y/kqwPdZC4E37n3kgG +IFlnBm49Zh5I/OkwI7y3srqcE4/7EXPyQ2R2jo9wo EEpn548Zi4Mr/KSG32MBpuq3A7GG2F+mf11L5S1y0f3J/1t59rCimVfb87izI9ojC+bv5gTlb42M8t+Y IWm2ARs8A/sz+p62rj64vuxNc+N/xv+J/3QmWhqh8OXS/v5nrwc12lVse+2puPMf0Uc2kV/qxl4v/C/8 STivNBrdmftaK+Batool/4H+ud3vjjqYnM2dHqIqxElxa [file] 0EcVPIY0wyyILOsNzi9VvcAEO0lnMxoN5PaXxuHZ4I6e5CrN17ifKVxieZCaDOa9XUiCbbsIntOZ/Bryant GXuDqBqV29lzHppDjLDx1+8MCgl9CZD+8UrkmrJwxWnQHdPiS9/RVy4t54mxr4+0ESXuj+MUmh7PN7Hu /y8cUGWdXY7gyKRqEZtkzDHKMlJCQaL0rqWBMNmLM1 ni/lhO5Va+qbtJRVac2YSWc51qBpzPMmjHalYuP7usJ+5MGrC4wnZOXKqSJtyhqTdzyUhZB8zpNPU3Yl 3+MNFR7z3jzQw+JNBkjigirn1PkN2mH9U8fsDse1OU9/7hF5/o4pbJlQ9q02+//bff1rd/oBd6r524+P BvnNZcs9t17r65m2++/gjYj679+/YBu03ScV3yICZ7 4tBmes9flrqMysvitVZw3qIkMld4j7aQ9Xu4vD3G+awqw7+P5sa8v//6d2/ff/vdp88/zCf5oTxgu/ri 81+/ff/1V7/91GG7oi586qhfDe1s0c+/f3t7+/jN95+++alI06fIoa7+9eG3n//8H3B5rdoReo/SvbqW TlfUkN538obufJ304h4+/pc2jvoRtoD+Uux74hb/7e 2bj2//0lAv063/vkdp2wj8q13+exfhd9//3sqwums1qeRRo/bGf6myehi2vKAalV/rzz++jpZS824+/8 Zrr965+u3LD7/+/Hd/J/ncbh58x9+/+/bDF1/996++ePv09q+f//bD2+e/+Pqb95r++w8KU856uXq0Iz 7rrz58/F6Kn903/OOHL9/+8giDh4l89VOa429197+1 /ew3n//sWb12Cf/wU9B6K79psCnKbPCdYq+/e/vtN7/+6QfkA2p51oPf4cp5adeUc4/34cu/E+cF6v++ SXcH7Ruve1/8+T/+8Nc//fjvb//H/3r77R/++Mcf/vrXH3/44z+9ffnDn//w4x/f/u2/1flv//j2lz+/ rZ+3n++dMwxm6d90Y24//83fNON+y/RKVexPf/r5fz ImIAofn4wc/+m49Jy2Us3Nk+VX/y+4K64g9fks5v4E3A2uWrGVz1/tyAd8eIsUfty3+xVFNZuiYF+8D5 X39ePkrfs4j2D1+B8/svttRy8Y4l4+98+/+vLt0+e/+86PI2lznmBaRnk7A05NMmhJWnQpD+/Z5X/xLR PeplmSOSdFpI+x8tsf//xf//z21x/+63pD1q2w9bvk 4HkF+uVlhT4DQeM0kijB+e3Htz/8+b9+/Ov/8zeF9+SPMJ/Je9kPb/6d1A/v1cP//X+8l/0Pf/nzT5Pf 9ut+krwncXn/8unn//Lt56ilKLS8JbXs1kJU+f5deu72NlYqJ0W/vMqI2/IP7jX4zTDJ4+4XUo0h94gJ //PH//zbcXPbTexnn3//y5+1nXF4D47sl//rr//2jz 8JfdrhNz/88dG+96V86ww/8fsf/vMPP/z5J/COoDb5y1+YV0Yf//CZI578W4e/CXCq8+u//R6iAe2b2Q OLRAKffvz9//XnP/z+qOJavb07xfuR3H6YzWP+53+9d6l//+h8k63pa/zztEPv720toyS+Z3/3GUf3a+ H8/w/n2drI03xB+Nsf/s8f3+rbX/9e6nEUou0ogYj+ z20Vldo+fXj/ft81f/jy02c+872VlqvkNx+//BPgh1upb7rh2vrsR7prkqaeb5t76ssz4iv5o9//BxuB n8LHHW1un2DhJJWaOrHmEV0knmqzEVWvNQ3yjvm1G2XfxXhyUIrZXHHkOt2gqAAkYM0WQLC0MWjzVXJr WSXkJ2OnbB9dO89uvHPeUjHlVTOTRJ9BotP2QQF7WV U6BZOwSsKySRYpGX60HGOhPTGGEx5veoIbWdrUXgPnUL9dvao8I4G9uMXiD116rEphdvSxRY1Xz0KodG UpHO8JkYHttHWyELNlBIHgB5cqt3QqIZnuTXJDGx4xprPfLqdFPsBsUD9dhlw1U9J2dWvchhFpSMVFDE aaEvduWL9gmWtfanhjQ8RlpRHrFMWuY0WeSRIjx57B GFFtVWrRJaNgGlOvKZBtLEF9JnksHhBzXOWzSFIzKJLvRO9ArIJbBAMeBAQGYKhoMftzECBooU7hjVQC m7RsG5dYZRNHGXtbSEZGMoXrCzJ9NLcaMMKxC6KtyoLinQZaSLROZAioIciwGVOuiK6lfYpeK4NvMPM4 y4XnVP7NJ7MsHXJeYZAZAUA4w5GkMMVephesqbbaHq GbHFLvBURpFDKdBX8Awq1ynRDfifYzSUMHYAgiNnxeDS4adZiwuebfQ8DypQDmATL+JsTiHW7nwl5+Cj CbXWSeHio0UHRmSEetEBUlOHKhXVYiI6aeYHGbCaXaCEZbZwFuSR2Vq4MvuAAmCn4dffDbHusJmIEaGq euWMKkBNJeVVNpUxOHCHNjEQZyHCEfDUV5AERdOGHu HXweXIHrJHcbShG0TBZuYMSsPJ9xGeFpSOVcRfY0HMZeXKImCOLkqgJUUJWpDOV7StV0POUeCVAlMDIx UDhhKMZtFQHwXXSiYSP8UWM4ATZnQjMkIOLyKMIaTVVyKRBhZGSlulBMJWGiNFArYYY9TVBvLYUkKIFc HFjzWJTvROOzNMeyFWFqDIMmYZ3fAsMfNVYuFMBsAM muGQXqAPAoaqIDIAGrUSKbENXnMSEcGEGnIPZnVItkHKKmTLMyCCBlDXDkMWDiGJ5wEmMtSXNePZO6BB QeVPNsLEDwvqFOQGFfEIMaQUq1EYQhBDIdKIPsCNhoFZZgTMNxFCR4IFEpCSOeDT4pFsLmLZUsUFM2Pz JbBYZhHBBwmqPTFWCjBSJzCIO2ZzMtIRSmEEJkBIre YICcEJYtRSsoIZNlPIRkJH2aTkKpKYRjRUBuYUihRRLxPPUilcEZTBQpISGpBLIhBpQqCVIkAKNoHQyc QPZjHXfwPNdlPNIqLCHtVH1nStHcKZOfMOK6ZJccQJTsCPFhnaYULRWdXQKgDTnmHAOjSMVlDTJmGOdd VMIcVHEbKNF6TEXgBYXvPC8fOtEaROHqJNJaMLNwGm A5MsPiPbADaGYdeHsviwx6DNzlQ4s5JVXiQKikFY2axnObUGJgHaksKd9xdEB0FJIrOpnMRs2Re0Ynlc P4ugAvKlucZspxZeYoRH8S ID Date Data Source [id number] 12/29/2020 10:24:42 AM EDT [facility] CT HEAD WITHOUT CONTRAST [id number] LTInterpreted by:Mildred Bill MDCLINICAL INDICATION: Altered [...] Patient is status post right frontal approach HEARSE DRIVER shunt placement with the catheter tip in [...] cerebellar atrophy.3. Left parieto-occipital encephalomalacia.4. Status post HEARSE DRIVER shunt placement with the catheter tip in the right lateral ventricle.This document has been electronically signed by Loen Michael MD on 12/29/2020 10:22 AM Name Value Range Interpretation Code Description Data Radha rce(s) Supporting Document(s) ID Date Data Source [id number] 12/29/2020 07:10:08 AM [facility] XR SKULL COMPLETE [id number] RESULTInter preted by:Avi Martino [facility]: Exam: XR Skull Exam date and time: 12/29/2020 6:19 AM Age: 65 years old Clinical indication: Other nonspecific abnormal finding of lung field; Other: [employer] shunt series TECHNIQUE: Imaging protocol: XR of the skull. Views: Minimum of 4 views. COMPARISON: 1. CR XR SKULL LIMITED [id number] PORTABLE 12/29/2020 3:[address] HEAD WITHOUT CONTRAST [id number] 12/28/2020 10:50:16 PM FINDINGS: Sinuses: Well aerated. [...] rce(s) Supporting Document(s) ID Date Data Source [id number] 12/29/2020 07:03:32 AM [facility] XR ABDOMEN AP SUPINE AND LATERAL VIEW [id number] RESULTInterpreted by:Avi Martino [facility]: Exam: XR Abdomen Exam date and time: 12/29/2020 6:19 AM Age: 65 years old Clinical indication: Other nonspecific abnormal finding of lung field; Other: [employer] shunt series TECHNIQUE: Imaging protocol: XR of the abdomen. Views: 2 Views. Upright and supine views. COMPARISON: CR XR CHEST FRONTAL ONLY [id number] PORTABLE 12/28/2020 9:31 PM FINDINGS: Tubes, catheters and devices: A HEARSE DRIVER shunt is seen. The tip reaches the right upper quadrant posteriorly. Gastrointestinal tract: Air-fluid levels are seen throughout mildly prominent large and small bowel which could reflect an ileus. Intraperitoneal space: There is no free intraperitoneal air. Bones/joints: Unremarkable for age. Other findings: There is breathing on the supine AP exam. IMPRESSION: 1. A HEARSE DRIVER shunt is seen. The tip reaches the [...] rce(s) Supporting Document(s) ID Date Data Source [id number] 12/29/2020 07:02:22 AM EDT [facility] XR CHEST FRONTAL AND LATERAL [id number] RESULTInterpreted by:ANILA Haas INFORMATION: Exam: XR Chest Exam date and time: 12/29/2020 6:19 AM Age: 65 years old Clinical indication: Other nonspecific abnormal finding of lung field; Other: [employer] shunt series TECHNIQUE: Imaging protocol: XR of the chest. Views: 2 views. COMPARISON: CR XR CHEST FRONTAL ONLY [id number] PORTABLE 12/28/2020 9:31 PM FINDINGS: Tubes, catheters and devices: A HEARSE DRIVER shunt is seen with tip coiling in the posterior right upper quadrant. Lungs: Subsegmental atelectasis is noted at the bases. Pleural spaces: Unremarkable. No pleural effusion. No pneumothorax. Heart/Mediastinum: Unremarkable. No cardiomegaly. Bones/joints: Unremarkable. Intraperitoneal space: There is no free intraperitoneal air. IMPRESSION: A HEARSE DRIVER shunt is seen with tip coiling in the posterior right upper quadrant. THIS DOCUMENT HAS BEEN ELECTRONICALLY SIGNED BY AVI MARTINO MDThis document has been electronically signed by Avi Martino MD on 12/29/2020 7:02 AM Name Value Range Interpretation Code Description Data Radha rce(s) Supporting Document(s) ID Date Data Source [id number] 12/29/2020 06:34:46 AM EDT [facility] XR SKULL LIMITED [id number] RESULTInterp reted by:ANILA Haas INFORMATION: Exam: XR Skull Exam date and time: 12/29/2020 3:31 AM Age: 65 years old Clinical indication: Other nonspecific abnormal finding of lung field; Other: Focus on shunt valve to confirm settings TECHNIQUE: Imaging protocol: XR of the skull. Views: Less than 4 views. COMPARISON: CT HEAD WITHOUT CONTRAST [id number] 12/28/2020 10:50 PM FINDINGS: Tubes, catheters and devices: The pressure of the HEARSE DRIVER shunt is set at P/L 2.0 best interpreted on image 1. Sinuses: Well aerated. No opacification. Bones/joints: No fracture. Soft tissues: Unremarkable. IMPRESSION: The pressure of the HEARSE DRIVER shunt is set at P/L 2.0 best interpreted on image 1. THIS DOCUMENT HAS BEEN ELECTRONICALLY SIGNED BY AVI MARTINO MDThis document has been electronically signed by Avi Martino MD on 12/29/2020 6:34 AM Name Value Range Interpretation Code Description Data Radha rce(s) Supporting Document(s) ID Date Data Source [id number] 12/29/2020 12:44:01 AM EDT [facility] Name Value Range Interpretation Code Description Data Radha rce(s) Supporting Document(s) ED Provider Note [facility] GLORPk0rZjIQLgHc51/OBAdwFSNzj2GiKCzbLWd3NJeeGQHzG7MbKKR4iY8iBVQ0HKhKSyDvOuLxSVQl lbm [file] nmEP4YSPL+Faith+Gb4NWLVuEOFzHXZbRlJxKWJCXuJrE2MmW8EIn1NcG7ZfBE64uKdsgyNaHCzdVV1UFW 1bEOHcLSWGMQ1VjOPivV8nnwO2PXHbWYQDWuUnB70dmGTjJMUcJNHmIJAkKe5VZXHdY6KduxLqnXhboo BgOAIdAPNUHN0SFLerjzFomCAvmIfgEA35bXwpNQ8Y Vy4WIvDsFP0bqc5PdUZtSx6QQRN8LD7AJYUwYXRpBXOgSDV5YZVoTqIkJCowDMKhQSNgNNF7RFTeZCLb PV2OPlGuXRBpRHU6NEOvWONpJQSqoa6KBPKzMNT4OhGxKtByIJQjUKTbYPopTNVbQHRyLRE2FEHeXGAq LW8EDgRaVCTkLEN1EcrpHSEbDJExlw9KVSEqBJIoFi t1WrXbIUThQQBtNQwjLRAaNPW6EOJ8GFStNHWlEV1OFyPfSJVgKUVlTDbaJKIrFYAmwb5LHIZpOTJcSQ Z7UPOsMNFhYFKeCDtvHXUmLTZ4FHG0WAUxNUMtCK3NZgBmIIIcHAE3WMdgDQPbAPVivq5OIQZiGGSqJq S6XUFfCIXfUOCoUGdeWBPoRCC6OyT2YPLrVUKgOY9Z VkBlUUDmWPP8FASlDNWmHRXngo6YJRSrAFBiLBc8QsMvESQqOGAhAWutRNDcGKW9XHQ3RRKsBRVmWI2D FxLhSBKtEgGyNiodYFDyBMQcng2KJTOtEYXxWqGeNeIvTUExBDAgCPraPYJvIDT8OJu2STIwVEKnCF0E EtJjCZKyWiWhEWKcFHKtGICbym6JWSVyDGZpOAFfVZ OoKBOeKURkKSghDPYsZWQ8QkM2FMBrOTQfRH8FQkDtGERkTkE3ACJaZBBkOJVvbg4YRUDgNEFaCPo5En ZdOSBoUEHmNVzgJJQjXCR3TAU0WCZaLGOkSP4UUwAmQTIoQlE2COPzRSOoDYOsjm4JVKDwEELxSJU2SG NnWPDgNYOsENzqVLNkMMM6Ili4OLJuGEMyFC6KMiVz SZFtUvdqWJvjNWZfIUXgvc2VTGZbIPObYPR7XCUmSQAlXIXgSUefAORaVYU5AnN6YIMoNCXbTQ7AAbYr ZBDzTJI5IKAkCPMmVRAull1YYEYpSAI6PCr1TEHnAEPuMRSuFYxkZDFrHSOwEUr1TLEqCXAmTR3RRbNe HBCqLMT7IiJjOYNwAWMwvh4SSSJyMME4Jyx4CTQbRH PfPNUlQXyqNOAbHPRjHVe3VARpCFZoIQ9CEuGdBCWnZPUgXwvqFCOoZSDauw0TWYJfAMK7OyP3LuGpQC JdZLPnJBvaYBEoUUH7YhF8OMPbFJWuGQ3HHnReGZPzKPC7YJceDDVxMGWfpt6IIEKvYWP6TYW3FHUqKV HnWIAkDCqnCQJvUKQ3QKd7VIRxISZnFH2JRhLqNJBn EJR2JEBzMSVjDOCduu3HLXUuVEQ3EtL8CDZjBGTvRQAuHVqiGXRzAKD4OGw0JODaKZWdQE3GWjGeKTXl CXN7ROamPVJjUIUyng8LAOQvYHQ9UbJ2TlWgSDJzBIRcIEfoSJDpGHI2VfD6MSYqECOjKH9GYhDkPUev YPEYSfs0FUhqR3m2CGB6OP0OW4Ztp7TuUTgyEEAOHX ruRZ1bgxDiDMTqMd4LT8nSPsqbZ5VlXzU0IIYeWNZ1VaLkCYUfOMTbLwD0KzTvJEw4ZL2nMDSdPYSvPX V4EKQjHJdyZAR2KPEjX1VsQMEwURUyFBibPdIfWW9GCb6ORnP0UDT7aFCiJv9AKVk5DWILTsSuIN1VWS o= ID Date Data Source [id number] 12/28/2020 11:11:00 PM EDT [facility] Name Value Range Interpretation Code Description Data Radha rce(s) Supporting Document(s) SARS-CoV-2 RNA 2019 nCoV Real-Time RT-PCR: NOT DETECTED [facility] This lab was ordered by [facility] and reported by [facility]. 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 [facility] Patient has symptoms related to condition [facility] When did you start to experience these symptoms [Date and time] [Phen X] [facility] Patient was hospitalized because of this condition [facility] patient was admitted to ICU for condition [facility] Patient resides in a congregate care setting [facility] status [facility] ID Date Data Source [id number] 12/29/2020 01:55:50 AM EDT [facility] Service Cmnt XXX-Imp : NoneRespiratory P CR Panel : PCR ResultsMicroorganism XXX Cult : See Labs Tab for 2019 nCoV RT-PCR resultsHAdV DNA QI DORIS+non-probe : Not DetectedHCoV [id number] Nph QI DORIS+non-probe : Not DetectedHCoV [id number] Nph QI DORIS+non-probe : Not [id number] RNA Nph QI DORIS+non-probe : Not [id number] RNA Upper resp QI DORIS+probe : Not [...] DNA Nph Q DORIS+non-probe : Not DetectedB [id number] DNA Nph DORIS+non-probe : Not Detected Name Value Range Interpretation Code Description Data Radha rce(s) Supporting Document(s) ID Date Data Source [id number] 12/28/2020 10:16:52 PM EDT [facility] XR CHEST FRONTAL ONLY [id number] RESULTI nterpreted by:Carlitos Sinclair, DOPROCEDURE INFORMATION: Exam: [...] rce(s) Supporting Document(s) ID Date Data Source [id number] 01/02/2021 01:48:40 PM [facility] Service Cmnt XXX-Imp : L ACMicroorganism XXX Cult : No growth 5 days Name Value Range Interpretation Code Description Data Radha rce(s) Supporting Document(s) ID Date Data Source [id number] 12/28/2020 10:51:01 PM [facility] Name Value Range Interpretation Code Description Data Radha rce(s) Supporting Document(s) Lamotrigine [Mass/volume] in Serum or Plasma 5.3 ug/mL 3.0-14.0 [facility] ID Date Data Source [id number] 12/28/2020 10:51:01 PM [facility] Name Value Range Interpretation Code Description Data Radha rce(s) Supporting Document(s) Levetiracetam [Mass/volume] in Serum or Plasma 19 ug/mL 12-46 [facility] ID Date Data Source [id number] 12/28/2020 10:20:52 PM [facility] Name Value Range Interpretation Code Description Data Radha rce(s) Supporting Document(s) Leukocytes [#/volume] in Blood by Automated count 7.1 10*3/uL 4-10 [facility] Erythrocytes [#/volume] in Blood by Automated count 4.13 10*6/uL 4.6- 6.1 L [facility] Hemoglobin [Mass/volume] in Blood 12.6 g/dL 13.5-18 L [facility] Hematocrit [Volume Fraction] of Blood by Automated count 37.3 % 4 1-53 L [facility] Erythrocyte mean corpuscular volume [Entitic volume] by Auto mated count 90.5 fL 80-96 [facility] Erythrocyte mean corpuscular hemoglobin [Entitic mass] by Automated count 30.6 pg 27-33 [facility] Erythrocyte mean corpuscular hemoglobin concentration [Mass/volume] by Automated count 33.8 g/dL 32.0-36.0 [facility] width [Ratio] by Automated count 13.8 % 11.5-14.5 [facility] Platelets [#/volume] in Blood by Automated count 148 10*3/uL 150-400 L [facility] Differential cell count method - Blood [facility] Neutrophils/100 leukocytes in Blood by Automated count 84 % [facility] Lymphocytes/100 leukocytes in Blood by Automated count 7 % [facility] Monocytes/100 leukocytes in Blood by Automated count 9 % [facility] Eosinophils/100 leukocytes in Blood by Automated count 0 % [facility] Basophils/100 leukocytes in Blood by Automated count 0 % [facility] Neutrophils [#/volume] in Blood by Automated count 5.99 10*3/uL 1.8-7 .0 [facility] Lymphocytes [#/volume] in Blood by Automated count 0.47 10*3/uL 1.2-4 .0 L [facility] Monocytes [#/volume] in Blood by Automated count 0.65 10*3/uL 0-0.8 [facility] Eosinophils [#/volume] in Blood by Automated count 0.03 10*3/uL 0-0.5 [facility] Basophils [#/volume] in Blood by Automated count 0.02 10*3/uL 0-0.2 [facility] Nucleated erythrocytes/100 leukocytes [Ratio] in Blood by Automated count 0 /100{WBCs} 0-0 [facility] ID Date Data Source [id number] 12/28/2020 10:24:33 PM [facility] Value Range Interpretation Code Description Data Radha rce(s) Supporting Document(s) Erythrocyte sedimentation rate 17 mm/hr <20 [facility] ID Date Data Source [id number] 12/28/2020 10:45:13 PM EDT [facility] Name Value Range Interpretation Code Description Data Radha rce(s) Supporting Document(s) Albumin [Mass/volume] in Serum or Plasma by Bromocresol green (BCG) dye binding method 4.4 g/dL 3.5-5.2 [facility] Bilirubin.total [Mass/volume] in Serum or Plasma 0.2 mg/dL <1.2 [facility] Calcium [Mass/volume] in Serum or Plasma 9.1 mg/dL 8.8-10.2 [facility] Chloride [Moles/volume] in Serum or Plasma 103 mmol/L 98-107 [facility] Creatinine [Mass/volume] in Serum or Plasma 0.92 mg/dL 0.70-1.20 [facility] Glucose [Mass/volume] in Serum or Plasma 122 mg/dL 70-140 [facility] Alkaline phosphatase [Enzymatic activity/volume] in Serum or Plasma 123 U/L 40-129 [facility] Potassium [Moles/volume] in Serum or Plasma 4.4 mmol/L 3.4-5.1 [facility] Hemolyzed Protein [Mass/volume] in Serum or Plasma 6.9 g/dL 6.4-8.3 [facility] Sodium [Moles/volume] in Serum or Plasma 139 mmol/L 136-145 [facility] Aspartate aminotransferase [Enzymatic activity/volume] in Serum or Plasma 12 U/L <40 [facility] Urea nitrogen [Mass/volume] in Serum or Plasma 22 mg/dL 8-23 [facility] Osmolality of Serum or Plasma by calculation 293 mosm/kg 275-300 [facility] Creatinine/Urea nitrogen [Mass Ratio] in Serum or Plasma 24 [facility] Bicarbonate [Moles/volume] in Serum 25 mmol/L 22-29 [facility] Alanine aminotransferase [Enzymatic activity/volume] in Seru m or Plasma 12 U/L <41 [facility] Anion gap 3 in Serum or Plasma 11 mmol/L 8-15 [facility] Glomerular filtration rate/1.73 sq M pre dicted among non-blacks [Volume Rate/Area] in Serum or Plasma by Creatinine-based formula (MDRD) 87 mL/min/1.73m2 >60 [facility] Glomerular filtration rate/1.73 sq M pre dicted among blacks [Volume Rate/Area] in Serum or Plasma by Creatinine-based formula (MDRD) >60 [facility] ID Date Data Source [id number] 12/28/2020 10:45:13 PM EDT [facility] Name Value Range Interpretation Code Description Data Radha rce(s) Supporting Document(s) Phenobarbital [Mass/volume] in Serum or Plasma 30.2 ug/ml 15-40 [facility] ID Date Data Source [id number] 12/28/2020 10:45:13 PM EDT [facility] Name Value Range Interpretation Code Description Data Radha rce(s) Supporting Document(s) C reactive protein [Mass/volume] in Serum or Plasma 104.6 mg/L <8.0 H [facility] ID Date Data Source [id number] 12/28/2020 10:45:13 PM EDT [facility] Name Value Range Interpretation Code Description Data Radha rce(s) Supporting Document(s) Phenytoin [Mass/volume] in Serum or Plasma 16.4 ug/ml 10-20 [facility] ID Date Data Source [id number] 12/28/2020 01:34:00 PM EDT [facility] Name Value Range Interpretation Code Description Data Radha rce(s) Supporting Document(s) SARS-CoV-2 (COVID 19) NEGATIVE - SARS-CoV-2 (COVID19) [facility] This lab was ordered by [facility] a nd reported by [facility]. ID Date Data Source [id number] 11/22/2020 07:47:00 AM EDT [facility] (Tj Oshea [...] (Tj Oshea MD) ID Date Data Source [id number] 11/22/2020 07:47:00 AM EDT [facility] (Tj Oshea [...] Little GFR Left</content>
<content>ESRD GFR <15 on PULVERIZER TENDER</content>
<content></content> Laboratory test finding (navigational concept) 4.3 [...] (Tj Oshea MD) ID Date Data Source [id number] 11/22/2020 07:47:00 AM EDT [facility] (Tj Oshea [...] MD) Detection Limit = 1.0 Performed at: [address] [id number] Meat Puller: Nomi Barrett MD, Phone: [phone] ID Date Data Source [id number] 11/22/2020 07:47:00 AM EDT [facility] (Tj Oshea MD) Name Value Range Interpretation Code Description Data Radha rce(s) Supporting Document(s) Ammonia [Mass/volume] in Blood 21 uMOL/L N ormal (applies to non-numeric results) [facility] (Tj Oshea MD) ID Date Data Source [id number] 11/22/2020 07:47:00 AM EDT [facility] ([facility]) Name Value Range Interpretation Code Description Data Radha rce(s) Supporting Document(s) Levetiracetam [Mass/volume] in Serum or Plasma 27.6 ug/mL 10.0-40.0 [facility] ([facility] ) This test was developed and its performa nce characteristics determined by [facility]. It has not been cleared or approved by the Food and Drug Administration. Phenytoin [Mass/volume] in Serum or Plasma 18.3 UG/ML 10.0-20.0 [facility] ([facility]) Phenobarbital [Mass/volume] in Serum or Plasma 32.8 UG/ML 15.0-40.0 [facility] ([facility]) Lamotrigine [Mass/volume] in Serum or Plasma 6.5 ug/mL 2.0-20.0 [facility] ([facility]) Detection Limit = 1.0 Performed at: [facility] [id number] Meat Puller: Nomi Barrett MD, Phone: [phone] ID Date Data Source [id number] 11/22/2020 07:47:00 AM EDT [facility] ([facility]) Name Value Range Interpretation Code Description Data Radha rce(s) Supporting Document(s) Glucose, Fasting 100 mg/dL 70-100 [facility] ([facility]) Blood Urea Nitrogen 15 mg/dL 7-18 [facility] ([facility]) Sodium Level 143 meq/L 136-145 [facility] ([facility]) Glomerular Filtration Rate Laboratory test result [facility] ([facility]) <content>Units are mL/min/1.73 m2</content>
<content></content>
<content>Chronic Kidney Disease Staging per NK[facility]:</content>
<content></content>
<content>Stage I & II GFR >=60 Normal to Mildly Decreased</content>
<content>Stage III GFR 30- 59 Moderately Decreased</content>
<content>Stage IV GFR 15-29 Severely Decreased</content>
<content>Stage V GFR <15 Very Little GFR Left</content>
<content>ESRD GFR <15 on PULVERIZER TENDER</content>
<content></content> Creatinine For GFR 0.94 mg/dL 0.70-1.30 [facility] ([facility]) Potassium Serum 4.3 meq/L 3.5-5.1 [facility] ([facility]) Chloride Level 108 meq/L 98-107 [facility] ([facility]) Carbon Dioxide Level 33 meq/L 21-32 [facility] ([facility]) Anion Gap 2 meq/L 8-16 [facility] ([facility]) Ast/Sgot 14 U/L 7-37 [facility] ([facility]) Alt/SGPT 29 U/L 12-78 [facility] ([facility]) Calcium Level 8.8 mg/dL 8.8-10.2 [facility] ([facility]) Bilirubin,Total 0.2 mg/dL 0.2-1.0 [facility] ([facility]) Total Protein 6.9 GM/DL 6.4-8.2 [facility] ([facility]) Alkaline Phosphatase 150 U/L 45-117 [facility] ([facility]) Albumin/Globulin Ratio 1.4 [facility] ([facility]) Albumin 4.0 GM/DL 3.2-5.2 [facility] ([facility]) ID Date Data Source [id number] 11/22/2020 07:47:00 AM EDT [facility] ([facility]) Name Value Range Interpretation Code Description Data Radha rce(s) Supporting Document(s) Ammonia [Mass/volume] in Blood 21 uMOL/L [facility] ([facility]) ID Date Data Source [id number] 11/22/2020 07:47:00 AM [facility] Name Value Range Interpretation Code Description Data Radha rce(s) Supporting Document(s) White Blood Count 4.7 10 4.0-10.0 [facility] ([facility]) Hemoglobin 12.6 g/dL 13.5-17.5 [facility] ([facility]) Red Blood Count 4.23 10 4.30-6.10 [facility] ([facility]) Hematocrit 39.2 % 42.0-52.0 [facility] ([facility]) Mean Corpuscular Volume 92.7 fl 80.0-96.0 M [facility] ([facility]) Mean Corpuscular Hemoglobin 29.8 pg 27.0-33.0 [facility] ([facility]) Red Cell Distribution Width 13.3 % 11.5-14.5 [facility] ([facility]) Mean Corpuscular HGB Conc 32.1 g/dL 32.0-36.5 [facility] ([facility]) Neutrophils % 43.5 % 36.0-66.0 [facility] ([facility]) Platelet Count, Automated 176 10 150-450 [facility] ([facility]) Providence % 10.8 % 2.0-8.0 [facility] ([facility]) Lymph % 37.4 % 24.0-44.0 [facility] ([facility]) Eos % 7.3 % 0.0-3.0 [facility] ([facility]) Immature Granulocyte % 0.4 % 0-3.0 [facility] ([facility]) Baso % 0.6 % 0.0-1.0 [facility] ([facility]) Neutrophils # 2.0 10 1.5-8.5 [facility] ([facility]) Nucleated Red Blood Cell % 0.0 % 0-0 [facility] ([facility]) Lymph # 1.7 10 1.5-5.0 [facility] ([facility]) Eos # 0.3 10 0.0-0.5 [facility] ([facility]) Providence # 0.5 10 0.0-0.8 [facility] ([facility]) Baso # 0.0 10 0.0-0.2 [facility] ([facility]) ID Date Data Source [id number] 09/27/2020 10:07:00 AM EDT [facility] (Tj Oshea [...] and its performa nce characteristics determined by [facility]. It has not been cleared or approved by the Food and Drug Administration. Phenobarbital [Mass/volume] in Serum or Plasma 33.4 UG/ML 1 5.0-40.0 Normal (applies to non-numeric results) [facility] (Tj Oshea MD) Lamotrigine [Mass/volume] in Serum or Plasma 6.5 ug/mL 2.0 -20.0 Normal (applies to non-numeric results) [facility] (Tj Oshea MD) Detection Limit = 1.0 Performed at: [address] [id number] Meat Puller: Nomi Barrett MD, Phone: [phone] ID Date Data Source [id number] 09/27/2020 10:07:00 AM EDT [facility] (T[facility] Oshea [...] (Tj Oshea MD) ID Date Data Source [id number] 09/27/2020 10:07:00 AM EDT [facility] (Tj Oshea MD) Name Value Range Interpretation Code Description Data Radha rce(s) Supporting Document(s) Laboratory test finding (navigational concept) 2.130 uIU/ML 0 .358-3.740 Normal (applies to non-numeric results) [facility] (Tj Oshea MD) Laboratory test finding (navigational concept) 0.48 ng/dL 0 .76-1.46 Below low normal [facility] (Tj Oshea MD) ID Date Data Source [id number] 09/27/2020 10:07:00 AM EDT [facility] (T[facility]a [...] (Tj Oshea MD) ID Date Data Source [id number] 09/27/2020 10:07:00 AM EDT [facility] (Tj Oshea [...] Little GFR Left</content>
<content>ESRD GFR <15 on PULVERIZER TENDER</content>
<content></content> Laboratory test finding (navigational concept) 139 [...] (Tj Oshea MD) ID Date Data Source [id number] 09/27/2020 10:07:00 AM EDT [facility] ([facility]a [...] Normal (applies to non-numeric results) [facility] (Tj Oseha MD) Laboratory test finding (navigational concept) 27.0 [...] (Tj Oshea MD) ID Date Data Source [id number] 09/27/2020 10:07:00 AM EDT [facility] ([facility], ) Name Value Range Interpretation Code Description Data Radha rce(s) Supporting Document(s) Phenytoin [Mass/volume] in Serum or Plasma 19.7 UG/ML 10.0-20.0 [facility] ([facility], ) Ammonia [Mass/volume] in Blood 22 uMOL/L [facility] ([facility], ) Phenobarbital [Mass/volume] in Serum or Plasma 33.4 UG/ML 15.0-40.0 [facility] ([facility], ) Lamotrigine [Mass/volume] in Serum or Plasma 6.5 ug/mL 2.0-20.0 [facility] ([facility]) Detection Limit = 1.0 Performed at: [address] [id number] Meat Puller: Nomi Barrett MD, Phone: [phone] Levetiracetam [Mass/volume] in Serum or Plasma 21.1 ug/mL 10.0-40.0 [facility] ([facility], ) This test was developed and its performa nce characteristics determined by [facility]. It has not been cleared or approved by the Food and Drug Administration. ID Date Data Source [id number] 09/12/2020 07:20:00 AM EDT [facility] ([facility]shea [...] (Tj Oshea MD) ID Date Data Source [id number] 09/12/2020 07:20:00 AM EDT [facility] (Tj Oshea MD) Name Value Range Interpretation Code Description Data Radha rce(s) Supporting Document(s) Laboratory test finding (navigational concept) Laboratory test r esult Normal (applies to non-numeric results) [facility] (Tj Oshea MD) FULL REPORT IN LAB NOTES ([facility] and [facility] ). NO GROWTH CLINICAL SIGNIFICANCE 1 ORGANISM ID Date Data Source [id number] 06/10/2020 03:25:00 PM EST [facility] (Tj Oshea [...] AFTER 5 DAYS ID Date Data Source [id number] 06/10/2020 03:25:00 PM EST [facility] (Tj Oshea [...] NO ORGANISMS SEEN ID Date Data Source [id number] 06/10/2020 03:25:00 PM EST [facility] (Tj Oshea MD) Name Value Range Interpretation Code Description Data Radha rce(s) Supporting Document(s) Phenytoin [Mass/volume] in Serum or Plasma 15.2 UG/ML 10.0- 20.0 Normal (applies to non-numeric results) [facility] (Tj Oshea MD) Phenobarbital [Mass/volume] in Serum or Plasma 28.8 UG/ML 1 5.0-40.0 Normal (applies to non-numeric results) [facility] (Tj Oshea MD) ID Date Data Source [id number] 06/10/2020 03:25:00 PM EST [facility] (Tj Oshea [...] Little GFR Left</content>
<content>ESRD GFR <15 on PULVERIZER TENDER</content>
<content></content> Laboratory test finding (navigational concept) 4.6 [...] (Tj Oshea MD) ID Date Data Source [id number] 06/10/2020 03:25:00 PM EST [facility] ([facility] [...] .0-3.0 Normal (applies to non-numeric results) [facility] (Tj [...] (Tj Oshea MD) ID Date Data Source [id number] 05/09/2020 09:06:00 AM EST [facility] ([facility] ) Name Value Range Interpretation Code Description Data Radha rce(s) Supporting Document(s) Phenytoin [Mass/volume] in Serum or Plasma 18.2 UG/ML 10.0-20.0 [facility] ([facility] ) Lamotrigine [Mass/volume] in Serum or Plasma 7.8 ug/mL 2.0-20.0 [facility] ([facility] ) Testing on this sample was performed by homogeneous enzyme immunoassay. Detection Limit = 1.0 Performed at: [facility] [id number] 61 Meat Puller: Nomi Barrett MD, Phone: [phone] Performed at: [facility] [address] [place] [id number] Meat Puller: Jihan Mena [facility], Phone: [phone] Levetiracetam [Mass/volume] in Serum or Plasma 27.7 ug/mL 10.0-40.0 [facility] ([facility] ) This test was developed and its performa nce characteristics determined by [facility]. It has not been cleared or approved by the Food and Drug Administration. ID Date Data Source [id number] 05/03/2020 01:05:00 AM EST [facility] Name Value Range Interpretation Code Description Data Radha rce(s) Supporting Document(s) SARS coronavirus 2 RNA [Presence] in Res piratory specimen by DORIS with probe detection POSITIVE [facility] This lab was ordered by [facility] a nd reported by [facility]. ID Date Data Source [id number] 04/17/2020 02:13:00 PM EST [facility] Name Value Range Interpretation Code Description Data Radha rce(s) Supporting Document(s) SARS coronavirus 2 RNA [Presence] in Res piratory specimen by DORIS with probe detection [facility] This lab was ordered by [facility] a nd reported by [facility]. ID Date Data Source [id number] 03/02/2020 09:01:00 AM EST [facility] (Tj Oshea MD) Name Value Range Interpretation Code Description Data Radha rce(s) Supporting Document(s) Laboratory test finding (navigational concept) 1.560 uIU/ML 0 .358-3.740 Normal (applies to non-numeric results) [facility] (Tj Oshea MD) Laboratory test finding (navigational concept) 0.48 ng/dL 0 .76-1.46 Below low normal [facility] (Tj Oshea MD) ID Date Data Source [id number] 03/02/2020 09:01:00 AM EST [facility] (Tj Oshea MD) Name Value Range Interpretation Code Description Data Radha rce(s) Supporting Document(s) Prostate specific Ag [Mass/volume] in Serum or Plasma 0.04 ng/mL Normal (applies to non-numeric results) [facility] (Tj Oshea MD) The PSA assay is performed on the [employer]visor analyzer by [employer] sandwich chemiluminescent immunoassay and should not be compared interchangeably with other methods. It should not be used alone as a screening test or diagnosis for the presence or absence of malignant disease. Predictions of disease recurrence should not be based solely on values obtained from serial patient serum values. ID Date Data Source [id number] 03/02/2020 09:01:00 AM EST [facility] ([facility] [...] (Tj Oshea MD) ID Date Data Source [id number] 03/02/2020 09:01:00 AM EST [facility] (Tj Oshea [...] Little GFR Left</content>
<content>ESRD GFR <15 on PULVERIZER TENDER</content>
<content></content> Laboratory test finding (navigational concept) 108 meq/L 9 8-107 Above high normal [facility] (Tj Oshea MD) Laboratory test finding (navigational concept) 4.4 meq/L 3 .5-5.1 Normal (applies to non-numeric results) [facility] (Tj Oshea MD) Laboratory test finding (navigational concept) 4 meq/L 8-16 Below low normal [facility] (Tj Oseha MD) Laboratory test finding (navigational concept) 30 [...] (Tj Oshea MD) ID Date Data Source [id number] 03/02/2020 09:01:00 AM EST [facility] (Tj Oshea [...] 02/18/2020 11:22:27 AM EDT eCW1 ([facility]) Name Value Range Interpretation Code Description Data Radha rce(s) Supporting Document(s) FULL REPORT IN LAB NOTES ([facility] and [facility]). WOUND CULTURE eCW1 ([facility]) Procedure Social History Code Duration Value Status Description Data Source(s ) Smoking 12/28/2020 12:00:00 AM EDT Unknown if ever smoked comp leted Unknown if ever smoked [facility] Smoking 08/09/2020 12:00:00 AM EDT Never Smoker completed Never S moker eCW1 ([facility]) Smoking 08/09/2020 12:00:00 AM EDT Never Smoker completed Never S moker eCW1 ([facility]) Smoking 03/08/2020 12:00:00 AM EST Never Smoker completed Never S moker eCW1 ([facility]) Smoking 03/08/2020 12:00:00 AM EST Never Smoker completed Never S moker eCW1 ([facility]) Smoking 03/08/2020 12:00:00 AM EST Never Smoker completed Never S moker eCW1 ([facility]) Smoking 02/16/2020 12:00:00 AM EDT Never Smoker completed Never S moker eCW1 ([facility]) Smoking 02/16/2020 12:00:00 AM EDT Never Smoker completed Never S moker eCW1 ([facility]) Smoking 02/16/2020 12:00:00 AM EDT Never Smoker completed Never S moker eCW1 ([facility]) Smoking 02/02/2020 12:00:00 AM EDT Never Smoker completed Never S moker eCW1 ([facility]) Smoking 02/02/2020 12:00:00 AM EDT Never Smoker completed Never S moker eCW1 ([facility]) Vital Signs ID Date Data Source [...] [facility] ( Tj Oshea MD) Heart rate 64 /min 64 /min [facility] ([facility] ) Systolic blood pressure 118 mm[Hg] 118 mm[Hg] M [facility] ([facility] ) Diastolic blood pressure 70 mm[Hg] 70 mm[Hg] [facility] ([facility] ) Respiratory rate 20 /min 20 /min [facility] ( [facility] ) Systolic blood pressure 110 mm[Hg] 110 mm[Hg] M [facility] ([facility] ) Diastolic blood pressure 70 mm[Hg] 70 mm[Hg] [facility] ([facility] ) Heart rate 76 /min 76 /min [facility] ([facility], ) Respiratory rate 16 /min 16 /min [facility] ( [facility]) Systolic blood pressure 116 mm[Hg] 116 mm[Hg] [...] 16 /min [facility] ( Tj Oshea MD) Body weight 224.00 [lb_av] 224.00 [lb_av] MEDEN T ([facility], ) Systolic blood pressure 124 mm[Hg] 124 mm[Hg] M [facility]ENT ([facility]) Diastolic blood pressure 82 mm[Hg] 82 mm[Hg] [facility] ([facility]) Heart rate 83 /min 83 /min [facility] ([facility]) Oxygen saturation in Arterial blood by Pulse oximetry 94 % 94 % [facility] ([facility]) Body temperature 96.9 [degF] 96.9 [degF] [facility] ([facility]) caretaker resort 97.4 Body height 71 [in_i] 71 [in_i] [facility] ([facility]) 5'11" Body mass index (BMI) [Ratio] 31.2 kg/m2 31.2 k g/m2 [facility] ([facility]) Kimper body weight 172 [lb_av] 172 [lb_av] MEDEN T ([facility]) Body weight 101.606 kg 101.606 kg [facility] ([facility]) Body surface area Derived from formula 2.21 m2 2.21 m2 [facility] ([facility]) Body mass index (BMI) [Ratio] 29.42 kg/m2 29.42 kg/m2 eCW1 ([facility]) Body weight 223 [lb_av] 223 [lb_av] eCW1 ([facility]) Body height 73 [in_i] 73 [in_i] eCW1 ([facility]) Diastolic blood pressure 58 mm[Hg] 58 mm[Hg] eCW1 ([facility]) Heart rate 83 /min 83 /min eCW1 ([facility]) Systolic blood pressure 98 mm[Hg] 98 mm[Hg] e CW1 ([facility]) Respiratory rate 18 /min 18 /min eCW1 ([facility]) Body temperature 98.2 [degF] 98.2 [degF] eCW1 ( [facility]) Systolic blood pressure 132 mm[Hg] 132 mm[Hg] M EDENT ([facility], ) VS as reported by JRN nurse Diastolic blood pressure 72 mm[Hg] 72 mm[Hg] [facility] VS as reported by JRN nurse Body weight 228.38 [lb_av] 228.38 [lb_av] MEDEN T ([facility], ) Heart rate 80 /min 80 /min [facility] ([facility], ) Respiratory rate 16 /min 16 /min [facility] ( [facility], ) Oxygen saturation in Arterial blood by Pulse oximetry 96 % 96 % [facility] ([facility], ) Body weight [lb_av] eCW1 ([facility]) Body height 73 [in_i] 73 [in_i] eCW1 ([facility]) Body mass index (BMI) [Ratio] 30.2 kg/m2 30.2 k g/m2 eCW1 ([facility]) Systolic blood pressure 100 mm[Hg] 100 mm[Hg] e CW1 ([facility]) Diastolic blood pressure 74 mm[Hg] 74 mm[Hg] eCW1 ([facility]) Body weight [lb_av] eCW1 ([facility]) Body height 73 [in_i] 73 [in_i] eCW1 ([facility]) Body mass index (BMI) [Ratio] 30.2 kg/m2 30.2 k g/m2 eCW1 ([facility]) Systolic blood pressure 112 mm[Hg] 112 mm[Hg] e CW1 ([facility]) Diastolic blood pressure 76 mm[Hg] 76 mm[Hg] eCW1 ([facility]) Body height 73 [in_i] 73 [in_i] eCW1 ([facility]) Body weight [lb_av] eCW1 ([facility]) Body mass index (BMI) [Ratio] 30.2 kg/m2 30.2 k g/m2 eCW1 ([facility]) Systolic blood pressure 118 mm[Hg] 118 mm[Hg] e CW1 ([facility]) Diastolic blood pressure 74 mm[Hg] 74 mm[Hg] eCW1 ([facility]) ID Date Data Source [id number] 01/21/2021 04:00:36 PM [facility] Name Value Range Interpretation Code Description Data Source(s) WEIGHT RECORDED 224.43 lb 224.43 lb [facility] Body height Measured 73 in 73 in [facility] TRANSFER FROM [facility] Patient Treatment Plan of Care Planned Activity Planned Date Details Description Data Source (s) Levofloxacin 750 MG Oral Tablet 01/04/2021 12:00:00 AM [facility] Levofloxacin 750 MG Oral Tablet 01/04/2021 12:00:00 AM [facility] clobazam 10 MG Oral Tablet 01/03/2021 12:00:00 AM [facility] Levofloxacin 750 MG Oral Tablet 01/03/2021 12:00:00 AM [facility] clobazam 10 MG Oral Tablet 01/02/2021 12:00:00 AM [facility] Hydroxyzine Hydrochloride 25 MG Oral Tablet 12/31/2020 12:14:23 PM [facility] Gentamicin Sulfate (RESIDENTIAL) 0.001 MG/MG Topical Ointment 02/18/2020 12:00:00 AM EDT eCW1 ([facility] Gentamicin Sulfate (RESIDENTIAL) 0.001 MG/MG Topical Ointment 02/18/2020 12:00:00 AM EDT eCW1 ([facility]) doxycycline hyclate 100 MG Oral Capsule 02/16/2020 12:00:00 AM EDT eCW1 ([facility]) doxycycline hyclate 100 MG Oral Capsule 02/16/2020 12:00:00 AM EDT eCW1 ([facility]) doxycycline hyclate 100 MG Oral Capsule 02/16/2020 12:00:00 AM EDT eCW1 ([facility]) Triamcinolone Acetonide 1 MG/ML Topical Cream 02/02/2020 12:00:00 A M EDT eCW1 ([facility]) Triamcinolone Acetonide 1 MG/ML Topical Cream 02/02/2020 12:00:00 A M EDT eCW1 ([facility]) Triamcinolone Acetonide 1 MG/ML Topical Cream 02/02/2020 12:00:00 A M EDT eCW1 ([facility]) Triamcinolone Acetonide 1 MG/ML Topical Cream 02/02/2020 12:00:00 A M EDT eCW1 ([facility]) Triamcinolone Acetonide 1 MG/ML Topical Cream 02/02/2020 12:00:00 A M EDT eCW1 ([facility]) Phenytoin sodium 100 MG Extended Release Oral Capsule [facility]
--- NOTE | 2021-03-14 11:49 | REP ---
INDICATION: sob abnormal cxr COMPARISON: 12/28/2020 TECHNIQUE: Axial noncontrast images from the thoracic inlet to the upper abdomen with coronal and sagittal reformations. This CT examination was performed using the following dose reduction techniques: Automated exposure control, adjustment of mA and/or kv according to the patient's size, and use of iterative reconstruction technique. FINDINGS: Evaluation is limited by motion artifact. Diffuse chronic interstitial changes and mild bibasilar fibroatelectatic changes are noted which are relatively similar to prior examination. Very subtle basilar atelectasis cannot be excluded. No discrete focal consolidation. No effusion. No pneumothorax. No obvious evidence for pulmonary vascular congestion. Mediastinum demonstrates stable atherosclerotic changes to the thoracic aorta and coronary arteries without aortic aneurysm or cardiomegaly. No pericardial effusion. Tracheobronchial tree is patent. No adenopathy. Musculoskeletal structures are intact. IMPRESSION: Chronic fibroatelectatic changes. Minimal trace basilar atelectasis cannot be excluded. <Electronically signed by Edy Melendez > 03/14/21 [id number]
[2021-03-14 12:31] LABS: ABG BASE EXCESS 0.1 (-2.0-2.0); ABG HCO3 25.9 MEQ/L (22.0-26.0); ABG O2 SATURATION 92.8 % (95.0-99.0); ABG PARTIAL PRESSURE CO2 46.6 mmHg (35.0-45.0); ABG PARTIAL PRESSURE O2 71.6 mmHg (75.0-100.0); ABG STANDARD HCO3 24.5 MEQ/L (22.0-26.0); ABG TOTAL CO2 27.3 MEQ/L (23.0-31.0); ABG pH (ARTERIAL) 7.362 UNITS (7.350-7.450)
[2021-03-14] MEDS ORDERED: HYDR50TA70 PO (12:52)
[2021-03-14] MEDS ORDERED: CLOB10TA PO (12:52)
[2021-03-14] MEDS ORDERED: HOME MED LIST COMPLETE! XX SCH (12:55)
[2021-03-14] MEDS ORDERED: LORazepam 2 MG/ML VIAL IV PRN (13:20)
--- NOTE | 2021-03-14 13:23 | HPEPDOC ---
General Date of Admission 03/14/21 Date of Service: Mar 14, 2021 Chief Complaint The patient is a 65-year-old male admitted with a reason for visit of AMS. Source: RN/, [facility] Caregiver/Aid History of Present Illness 65-year-old male resident of [facility] with past medical history of developmental disability, neurocognitive disorder, hydrocephalus with DOOR PANELER shunt, complex seizure disorder on 4 antiepileptics, impulse control disorder, mild intellectual disability, DONNA on CPAP, BPH was found this morning at 7 AM at the [facility] very lethargic responsive only to painful stimuli. On arrival of the EMS they found him to have a oxygenation of 80% in room air. He was placed on oxygen and brought to the ED. As per staff at [facility] at 3:30 AM he was sleeping with his CPAP on. At 7 AM when they went to wake him up he did not have his CPAP mask on. He had thrown off his CPAP mask at some point after 3:30 AM. There was no bowel or bladder incontinence in the bed. The night prior he was in his usual state of health. There has been no change in medication. No rec ent use of antibiotics. By the time patient reached the ED he was more awake by the time he presented to the ED. he was able to tell his name and answer simple questions however was falling asleep after a few words. in the ED patient was found to have acute respiratory failure with hypoxia and hypercarbia. patient was placed on his home CPAP (13cm ) repeat ABG showed improvement in his blood gas. Patient was admitted for acute metabolic encephalopathy due to hypercarbia. Patient follows commands and able to answer simple questions however no detailed history could be gotten from the patient because of his neurocognitive disorder and intellectual disability. All history was from [facility] staff and ED physician. Home Medications Scheduled Calcium Carbonate/Vitamin D3 (Calcium 500-Vit D3 200 Tablet) 1 Tab Tab, 1 TAB PO TID, (Reported) Clobazam (Clobazam) 10 Mg Tablet, 5 MG PO BID, (Reported) Ergocalciferol (Vitamin D2) (Vitamin D2) 1,250 Mcg Capsule, 1,250 MCG PO QWEEK, (Reported) SUNDAYS Fluticasone Propionate (Flonase Allergy Relief) 50 Mcg/Act Spr, 2 SPRAYS NARES DAILY, (Reported) Hydroxyzine HCl (Hydroxyzine HCl) 50 Mg Tablet, 50 MG PO BID, (Reported) Lactulose (Lactulose) 10 Gm/15 Ml Solution, 20 ML PO BID, (Reported) Lamotrigine (Lamotrigine) 200 Mg Tab, 200 MG PO DAILY, (Reported) Lamotrigine (Lamotrigine) 200 Mg Tablet, 400 MG PO QHS, (Reported) Linaclotide (Linzess) 290 Mcg Capsule, 290 MCG PO DAILY, (Reported) Paroxetine HCl (Paxil) 40 Mg Tab, 40 MG PO DAILY, (Reported) 60MG TOTAL Paroxetine HCl (Paroxetine HCl) 20 Mg Tablet, 20 MG PO DAILY, (Reported) 60MG TOTAL Phenobarbital (Phenobarbital) 64.8 Mg Tab, 64.8 MG PO BID, (Reported) Phenytoin Sodium Extended (Dilantin) 100 Mg Capsule, 100 MG PO BID, (Reported) Polyethylene Glycol 3350 (Miralax) 119 Gm Powder, 17 GM PO BID, (Reported) Prazosin Hcl (Prazosin HCl) 1 Mg Capsule, 1 MG PO QHS, (Reported) Quetiapine Fumarate (Seroquel) 50 Mg Tab, 50 MG PO BID, (Reported) TAKES WITH 300MG FOR TOTAL OF 350MG Quetiapine Fumarate (Quetiapine Fumarate) 300 Mg Tab, 300 MG PO BID, (Reported) TAKES WITH 50 MG FOR TOTAL OF 350 MG Sennosides (Senna) 8.6 Mg Tablet, 17.2 MG PO QHS, (Reported) Simvastatin (Simvastatin) 20 Mg Tab, 20 MG PO QHS, (Reported) Tamsulosin HCl (Flomax) 0.4 Mg Cap, 0.4 MG PO QHS, (Reported) Trazodone HCl (Trazodone HCl) 100 Mg Tab, 200 MG PO QHS, (Reported) levETIRAcetam (levETIRAcetam) 500 Mg Tablet, 1,500 MG PO BID, (Reported) Scheduled PRN Bisacodyl (Bisacodyl) 10 Mg Supp.rect, 10 MG AR ASDIRECTED PRN for CONSTIPATION, (Reported) ON DAY 4 OF NO BM Magnesium Hydroxide (Milk of Magnesia) 400 Mg/5 Ml Oral.susp, 30 ML PO ASDIRECTED PRN for CONSTIPATION, (Reported) ON 3RD DAY OF NO BM Mupirocin (Mupirocin) 2 % Oint...g., 1 APPLIC TOP TID PRN for RASH, (Reported) APPLIES TO ABDOMEN AND NECK Sodium Phosphate,Benson-Dibasic (Fleet Enema) 133 Ml Enema, 1 BRIGID AR ASDIRECTED PRN for CONSTIPATION, (Reported) ON DAY 5 OF NO BM Allergies Coded Allergies: asenapine (Verified Allergy, Unknown, unknown, 05/29/19) felbamate (Verified Allergy, Unknown, 04/17/20) haloperidol (Verified Allergy, Unknown, 04/17/20) lurasidone (Verified Allergy, Unknown, 04/17/20) TAPE (Verified Adverse Reaction, Mild, rash, 04/17/20) Past Medical History Medical History Developmental disability Hydrocephalus s/p DOOR PANELER shunt placement Neurocognitive disorder. Depression Impulse control disorder. Mild intellectual disability History of pituitary tumor HTN CVA (1985 and 1988) DLP Seizure disorder DONNA on CPAP BPH Surgical History laparoscopic cholecystectomy DOOR PANELER shunt Family History Unable to obtain because of patient's developmental disability. Sister alive and is the healthcare proxy. Social History * Smoker: Denies Alcohol: Denies Drugs: denies Resides in [facility]FIB/[facility] A-FIB History Current/History of A-Fib/PAF?: No Review of Systems Constitutional: Denies: Chills, Fever, Night Sweats Eyes: Denies: Pain, Vision change ENT: Denies: Head Aches, Ear Pain, Dysphagia Skin: Denies: Rash, Lesions, Breakdown Pulmonary: Denies: Dyspnea, Cough Cardiovascular: Denies: Chest Pain, Palpitations, Orthopnea, Paroxysmal Noc. Dyspnea Gastrointestinal: Denies: Nausea, Vomiting, Abdominal Pain, Diarrhea Genitourinary: Denies: Dysuria, Frequency, Incontinence, Retention Hematologic: Denies: Bruising, Bleeding Excessively Neurological: Reports: Confusion Psych: Reports: Depression, Memory Issues, Anger Physical Examination General Exam: Positive: Cooperative, No Acute Distress, Other (Somnolent but easily arousable) Eye Exam: Positive: PERRLA, Conjunctiva & lids normal, EOMI; Negative: Sclera icteric ENT Exam: Positive: Atraumatic, Mucous membr. moist/pink, Pharynx Normal Neck Exam: Positive: Supple; Negative: JVD, thyromegaly Chest Exam: Positive: Clear to auscultation, Normal air movement Heart Exam: Positive: Rate Normal, Regular Rhythm, Normal S1, Normal S2; Negative: Murmurs, Rubs Abdomen Exam: Positive: Normal bowel sounds, Soft; Negative: Tenderness, Hepatospenomegaly Extremity Exam: Negative: Clubbing, Cyanosis, Edema Skin Exam: Positive: Nl turgor and temperature; Negative: Breakdown, Lesion Psych Exam: Negative: Mental status NL, Memory Intact, Oriented x 3 Vital Signs Vital Signs Date Time Temp Pulse Resp B/P (MAP) Pulse Ox O2 Delivery O2 Flow Rate FiO2 03/14/21 09:00 129/74 (92) 03/14/21 08:56 68 97 Room Air 03/14/21 08:51 96.2 03/14/21 08:41 2.0 03/14/21 08:38 18 Laboratory Data Labs 24H Laboratory Tests 2 03/14/21 08:36: Immature Granulocyte % (Auto) 0.0, Neutrophils (%) (Auto) 50.5, Lymphocytes (%) (Auto) 32.8, Monocytes (%) (Auto) 9.6H, Eosinophils (%) (Auto) 6.6H, Basophils (%) (Auto) 0.5, Neutrophils # (Auto) 2.2, Lymphocytes # (Auto) 1.4L, Monocytes # (Auto) 0.4, Eosinophils # (Auto) 0.3, Basophils # (Auto) 0.0, Nucleated Red Blood Cells % (auto) 0.0, Blood Gas Bicarbonate Standard 26.7, Venous Blood pH 7.282L, Venous Blood Partial Pressure CO2 68.5H, Venous Blood Partial Pressure O2 42.3, Venous Blood Total Carbon Dioxide 33.7H, Venous Blood HCO3 31.6H, Venous Blood Oxygen Saturation 73.0, Venous Blood Base Excess 3.1H, Anion Gap 2L, Glomerular Filtration Rate > 60.0, Osmolality 298, Lactic Acid Level 0.9, Calcium Level 8.8, Total Bilirubin 0.2, Direct Bilirubin < 0.1, Aspartate Amino Transf (AST/SGOT) 10, Alanine Aminotransferase (ALT/SGPT) 18, Alkaline Phosphatase 133H, Ammonia 34H, Total Creatine Kinase 54, Creatine Kinase MB < 1.0, Creatine Kinase MB Relative Index 1.85, Troponin I < 0.02, Total Protein 6.3L, Albumin 3.4, Albumin/Globulin Ratio 1.2, Thyroid Stimulating Hormone (TSH) 2.510, Phenytoin (Dilantin) Level 6.7L, Phenobarbital Level 29.2 03/14/21 08:58: POC Glucose (Misc Panel) 99, POC Sodium (Misc Panel) 142, POC Potassium (Misc Panel) 4.1, POC Chloride (Misc Panel) 101, POC Total CO2 (Misc Panel) 32.0H, POC Blood Urea Nitrogen (Misc Panel 15, POC Ionized Calcium (Misc Panel) 4.9, POC Creatinine (Misc Panel) 0.9, POC Hematocrit (Misc Panel) 33.0L 03/14/21 09:39: Blood Gas Bicarbonate Standard 27.6H, Arterial Blood pH 7.306L, Arterial Blood Partial Pressure CO2 64.1*H, Arterial Blood Partial Pressure O2 96.3, Arterial Blood Total CO2 33.2H, Arterial Blood HCO3 31.3H, Arterial Blood Base Excess 3.5H, Arterial Blood Oxygen Saturation 96.1 03/14/21 10:15: Urine Color YELLOW, Urine Appearance HAZY, Urine pH 7.0, Urine Specific [place] 1.012, Urine Protein NEGATIVE, Urine Glucose (UA) NEGATIVE, Urine Ketones NEGATIVE, Urine Blood 3+H, Urine Nitrite NEGATIVE, Urine Bilirubin NEGATIVE, Urine Urobilinogen 0.2, Urine Leukocyte Esterase NEGATIVE, Urine WBC (Auto) 0, Urine RBC (Auto) TNTCH, Urine Hyaline Casts (Auto) 0, Urine Bacteria (Auto) NEGATIVE, Urine Squamous Epithelial Cells 0, Urine Amorphous Sediment SMALLH, Urine Mucus (Auto) SMALL, Urine Sperm (Auto) CBC/BMP Laboratory Tests 03/14/21 08:36 Microbiology Microbiology 03/14/21 Blood Culture, Received Pending 03/14/21 Blood Culture, Received Pending 03/14/21 Respiratory Virus Panel (PCR) ([facility]) - Final, Complete Assessment/Plan 65-year-old male resident of [facility] with past medical history of developmental disability, neurocognitive disorder, hydrocephalus with DOOR PANELER shunt, complex seizure disorder on 4 antiepileptics, impulse control disorder, mild in tellectual disability, DONNA on CPAP, BPH was found this morning at 7 AM at the [facility] very lethargic responsive only to painful stimuli. On arrival of the EMS they found him to have a oxygenation of 80% in room air. He was placed on oxygen and brought to the ED. As per staff at [facility] at 3:30 AM he was sleeping with his CPAP on. At 7 AM when they went to wake him up he did not have his CPAP mask on. He had thrown off his CPAP mask at some point after 3:30 AM. There was no bowel or bladder incontinence in the bed. The night prior he was in his usual state of health. There has been no change in medication. No recent use of antibiotics. By the time patient reached the ED he was more awake by the time he presented to the ED. he was able to tell his name and answer simple questions however was falling asleep after a few words. in the ED patient was found to have acute respiratory failure with hypoxia and hypercarbia. patient was placed on his home CPAP (13cm ) repeat ABG showed improvement in his blood gas. Patient was admitted for acute metabolic encephalopathy due to hypercarbia. Acute metabolic encephalopathy CT head no acute issues possibly patient had an unwitnessed seizure during sleep causing a postictal state leading hypercarbia This is now resolving Acute respiratory failure with hypoxia and hypercarbia CT chest: Chronic fibroatelectatic changes. Minimal trace basilar atelectasis cannot be excluded. Possibly due to unwitnessed seizure on the background of having DONNA Patient was put back on CPAP with home settings with improvement in ABG Resistant seizure disorder Patient has several different kinds of seizures and is on 5 different antiepileptic medications Patient may have had an unwitnessed seizure during sleep leading to respiratory Continue all home seizure medications. BPH Continue Flomax Depression/impulse Control disorder Continue Seroquel, paroxetine, hydroxyzine, prazosin, trazodone Hyperlipidemia Continue statin Chronic constipation Continue with bowel regimen. Developmental disability/ neurocognitive disorder/ mild intellectual disability [facility] resident Plan / VTE VTE Prophylaxis Ordered?: Yes Karen Mark MD Mar 14, 2021 11:08
[2021-03-14] MEDS ORDERED: MOM 30ML SUSPENSION UDC PO PRN (13:25)
[2021-03-14] MEDS: lamoTRIgine 100MG TAB PO SCH (14:07)
[2021-03-14] MEDS: levETIRAcetam 250MG TABLET (KEPPRA) PO SCH ×2 (14:07→21:02)
[2021-03-14] MEDS: PHENobarbitaL 30 MG TAB PO SCH ×2 (14:08→21:01)
[2021-03-14] MEDS: ENOXAPARIN 40MG/0.4ML SYRINGE (J1650 PER 10MG) SC SCH (14:31)
[2021-03-14] MEDS: PHENYTOIN ER 100 MG CAP PO SCH ×2 (14:31→21:01)
[2021-03-14 16:00] VITALS: BP 134/80
[2021-03-14] MEDS ORDERED: PILL CUTTER 1 EACH XX PRN (20:50)
[2021-03-14] MEDS: QUEtiapine FUMARATE 100 MG TAB PO SCH (21:00)
[2021-03-14] MEDS ORDERED: TAMSULOSIN 0.4 MG CAP PO SCH (21:00)
[2021-03-14] MEDS ORDERED: SENNA 8.6 MG TAB (SENOKOT) PO SCH (21:00)
[2021-03-14] MEDS ORDERED: traZODone 100 MG TAB PO SCH (21:00)
[2021-03-14] MEDS ORDERED: lamoTRIgine 100MG TAB PO SCH (21:00)
[2021-03-14] MEDS: QUEtiapine FUMARATE 50MG TAB PO SCH (21:00)
[2021-03-14] MEDS ORDERED: SIMVASTATIN 20 MG TAB PO SCH (21:00)
[2021-03-14] MEDS ORDERED: PRAZOSIN 1 MG CAP PO SCH (21:00)
[2021-03-14 21:01] VITALS: BP 139/77
[2021-03-14] MEDS: MIRALAX *UNIT DOSE* 17GM PACKET PO SCH (21:02)
[2021-03-14] MEDS: LACTULOSE 20 GM/30 ML SYRUP UD PO SCH (21:02)
[2021-03-14 22:00] VITALS: BP 139/77
[2021-03-15 08:06] VITALS: BP 110/66
[2021-03-15 08:28] LABS: BASO % 0.7 % (0.0-1.0); EOS # 0.3 10^3/uL (0.0-0.5); EOS % 6.4 % (0.0-3.0); HEMATOCRIT 36.9 % (42.0-52.0); LYMPH # 1.5 10^3/uL (1.5-5.0); LYMPH % 33.2 % (24.0-44.0); MEAN CORPUSCULAR HEMOGLOBIN 30.2 pg (27.0-33.0); MEAN CORPUSCULAR HGB CONC 32.5 g/dl (32.0-36.5); MEAN CORPUSCULAR VOLUME 92.7 fl (80.0-96.0); MONO # 0.4 10^3/uL (0.0-0.8); MONO % 8.4 % (2.0-8.0); NEUTROPHILS # 2.3 10^3/uL (1.5-8.5); NEUTROPHILS % 51.1 % (36.0-66.0); PLATELET COUNT, AUTOMATED 155 10^3/uL (150-450); RED BLOOD COUNT 3.98 10^6/uL (4.30-6.10); WHITE BLOOD COUNT 4.5 10^3/uL (4.0-10.0)
[2021-03-15] MEDS: LACTULOSE 20 GM/30 ML SYRUP UD PO SCH (08:36)
[2021-03-15] MEDS: ENOXAPARIN 40MG/0.4ML SYRINGE (J1650 PER 10MG) SC SCH (08:36)
[2021-03-15] MEDS: MIRALAX *UNIT DOSE* 17GM PACKET PO SCH (08:36)
[2021-03-15] MEDS: QUEtiapine FUMARATE 100 MG TAB PO SCH (08:36)
[2021-03-15] MEDS: QUEtiapine FUMARATE 50MG TAB PO SCH (08:36)
[2021-03-15] MEDS: PHENobarbitaL 30 MG TAB PO SCH (08:37)
[2021-03-15] MEDS: lamoTRIgine 100MG TAB PO SCH (08:37)
[2021-03-15] MEDS: PHENYTOIN ER 100 MG CAP PO SCH (08:37)
[2021-03-15] MEDS: levETIRAcetam 250MG TABLET (KEPPRA) PO SCH (08:37)
[2021-03-15 09:00] LABS: BLOOD UREA NITROGEN 10 MG/DL (7-18); CALCIUM LEVEL 9.5 MG/DL (8.8-10.2); CARBON DIOXIDE LEVEL 31 MEQ/L (21-32); CHLORIDE LEVEL 107 MEQ/L (98-107); CREATININE FOR GFR 0.91 MG/DL (0.70-1.30); GLOMERULAR FILTRATION RATE > 60.0 (>49); GLUCOSE, FASTING 97 MG/DL (70-100); POTASSIUM SERUM 4.4 MEQ/L (3.5-5.1); SODIUM LEVEL 141 MEQ/L (136-145)
[2021-03-15] MEDS ORDERED: PARoxetine 20MG TABLET PO SCH ×2 (09:00)
--- NOTE | 2021-03-15 12:35 | DS.PDOC ---
Discharge Summary General Date of Admission Mar 14, 2021 at 10:57 Date of Discharge 03/15/21 Discharge Summary PROCEDURES PERFORMED DURING STAY: [None]. DISCHARGE DIAGNOSES: Acute respiratory failure with hypoxia and hypercarbia Acute metabolic encephalopathy SECONDARY DIAGNOSIS: Developmental disability, neurocognitive disorder, hydrocephalus with MULTINEEDLE SHIRRER shunt, Complex seizure disorder on 5 antiepileptics, impulse control disorder, mild intellectual disability, DONNA on CPAP, BPH, HLD, constipation. COMPLICATIONS/CHIEF COMPLAINT: AMS. HOSPITAL COURSE: 65-year-old male resident of [facility] with past medical history of developmental disability, neurocognitive disorder, hydrocephalus with MULTINEEDLE SHIRRER shunt, complex seizure disorder on 4 antiepileptics, impulse control disorder, mild intellectual disability, DONNA on CPAP, BPH was found this morning at 7 AM at the long-term very lethargic responsive only to painful stimuli. On arrival of the EMS they found him to have a oxygenation of 80% in room air. He was placed on oxygen and brought to the ED. As per staff at [facility] at 3:30 AM he was sleeping with his CPAP on. At 7 AM when they went to wake him up he did not have his CPAP mask on. He had thrown off his CPAP mask at some point after 3:30 AM. There was no bowel or bladder incontinence in the bed. The night prior he was in his usual state of health. There has been no change in medicati on. No recent use of antibiotics. By the time patient reached the ED he was more awake by the time he presented to the ED. he was able to tell his name and answer simple questions however was falling asleep after a few words. in the ED patient was found to have acute respiratory failure with hypoxia and hypercarbia. patient was placed on his home CPAP (13cm ) repeat ABG showed improvement in his blood gas. Patient was admitted for acute metabolic encephalopathy due to hypercarbia. Acute metabolic encephalopathy CT head no acute issues possibly patient had an unwitnessed seizure during sleep causing a postictal state leading hypercarbia Now resolved. Acute respiratory failure with hypoxia and hypercarbia CT chest: Chronic fibroatelectatic changes. Minimal trace basilar atelectasis c annot be excluded. Possibly due to unwitnessed seizure on the background of having DONNA Patient was put back on CPAP with home settings with improvement in ABG Resistant seizure disorder Patient has several different kinds of seizures and is on 5 different antiepileptic medications Patient may have had an unwitnessed seizure during sleep leading to respiratory Continue all home seizure medications. BPH Continue Flomax Depression/impulse Control disorder Continue Seroquel, paroxetine, hydroxyzine, prazosin, trazodone Hyperlipidemia Continue statin Chronic constipation Continue with bowel regimen. Developmental disability/ neurocognitive disorder/ mild intellectual disability [facility] resident DISCHARGE MEDICATIONS: Please see below. ALLERGIES: Please see below. PHYSICAL EXAMINATION ON DISCHARGE: VITAL SIGNS: Please see below. General Exam: Positive: Cooperative, No Acute Distress, Other (Somnolent but easily arousable) Eye Exam: Positive: PERRLA, Conjunctiva & lids normal, EOMI; Negative: Sclera icteric ENT Exam: Positive: Atraumatic, Mucous membr. moist/pink, Pharynx Normal Neck Exam: Positive: Supple; Negative: JVD, thyromegaly Chest Exam: Positive: Clear to auscultation, Normal air movement Heart Exam: Positive: Rate Normal, Regular Rhythm, Normal S1, Normal S2; Negative: Murmurs, Rubs Abdomen Exam: Positive: Normal bowel sounds, Soft; Negative: Tenderness, Hepatosplenomegaly Extremity Exam: Negative: Clubbing, Cyanosis, Edema Skin Exam: Positive: Nl turgor and temperature; Negative: Breakdown, Lesion Psych Exam: Negative: Mental status NL, Memory Intact, Oriented x 3 LABORATORY DATA: Please see below. IMAGING: CT chest FINDINGS: Evaluation is limited by motion artifact. Diffuse chronic interstitial changes and mild bibasilar fibroatelectatic changes are noted which are relatively similar to prior examination. Very subtle basilar atelectasis cannot be excluded. No discrete focal consolidation. No effusion. No pneumothorax. No obvious evidence for pulmonary vascular congestion. Mediastinum demonstrates stable atherosclerotic changes to the thoracic aorta and coronary arteries without aortic aneurysm or cardiomegaly. No pericardial effusion. Tracheobronchial tree is patent. No adenopathy. Musculoskeletal structures are intact. IMPRESSION: Chronic fibroatelectatic changes. Minimal trace basilar atelectasis cannot be excluded. CT head: FINDINGS: Atrophy with periventricular leukomalacia and microvascular ischemic changes are again appreciated. Encephalomalacia in the left parietal lobe remains stable. Ventriculoperitoneal shunt via right frontal approach extends into the lateral ventricle and remains stable in position. There is no evidence for acute intracranial hemorrhage, mass/mass effect, pathology or infarction. No extra-axial fluid collection. Calvarium is intact. Paranasal sinuses again suggest acute/chronic sinus disease. IMPRESSION: Chronic stable changes. Acute on chronic sinus disease. No evidence for acute intracranial hemorrhage or mass/mass effect. ACTIVITY: [As tolerated]. DIET: As tolerated DISCHARGE PLAN: [facility] home DISCHARGE INSTRUCTIONS: Follow-up with own neurologist in 2 to 4-week Follow-up with PMD in 1 week ITEMS TO FOLLOWUP ON ON OUTPATIENT: Follow-up levels of antiepileptic medications which are in proper DISCHARGE CONDITION: [Stable]. TIME SPENT ON DISCHARGE: 35 minutes. Vital Signs/I&Os Vital Signs Date Time Temp Pulse Resp B/P (MAP) Pulse Ox O2 Delivery O2 Flow Rate FiO2 03/15/21 08:06 96.0 66 17 110/66 (81) 91 Room Air 03/15/21 00:58 2.0 I&O- Last 24 Hours up to 6 AM 03/15/21 06:00 Intake Total 600 ml Output Total 0 ml Balance 600 ml Laboratory Data Labs 24H Laboratory Tests 2 03/15/21 08:14: Immature Granulocyte % (Auto) 0.2, Neutrophils (%) (Auto) 51.1, Lymphocytes (%) (Auto) 33.2, Monocytes (%) (Auto) 8.4H, Eosinophils (%) (Auto) 6.4H, Basophils (%) (Auto) 0.7, Neutrophils # (Auto) 2.3, Lymphocytes # (Auto) 1.5, Monocytes # (Auto) 0.4, Eosinophils # (Auto) 0.3, Basophils # (Auto) 0.0, Nucleated Red Blood Cells % (auto) 0.0, Anion Gap 3L, Glomerular Filtration Rate > 60.0, Calcium Level 9.5 03/15/21 10:50: CBC/BMP Laboratory Tests 03/15/21 08:14 Microbiology Microbiology 03/14/21 Blood Culture - Preliminary, Resulted No growth after 24 hours . All specim... 03/14/21 Blood Culture - Preliminary, Resulted No growth after 24 hours . All specim... 03/14/21 Respiratory Virus Panel (PCR) ([facility]) - Final, Complete Discharge Medications Scheduled Calcium Carbonate/Vitamin D3 (Calcium 500-Vit D3 200 Tablet) 1 Tab Tab, 1 TAB PO TID, (Reported) Clobazam (Clobazam) 10 Mg Tablet, 5 MG PO BID, (Reported) Ergocalciferol (Vitamin D2) (Vitamin D2) 1,250 Mcg Capsule, 1,250 MCG PO QWEEK, (Reported) SUNDAYS Fluticasone Propionate (Flonase Allergy Relief) 50 Mcg/Act Spr, 2 SPRAYS NARES DAILY, (Reported) Hydroxyzine HCl (Hydroxyzine HCl) 50 Mg Tablet, 50 MG PO BID, (Reported) Lactulose (Lactulose) 10 Gm/15 Ml Solution, 20 ML PO BID, (Reported) Lamotrigine (Lamotrigine) 200 Mg Tab, 200 MG PO DAILY, (Reported) Lamotrigine (Lamotrigine) 200 Mg Tablet, 400 MG PO QHS, (Reported) Linaclotide (Linzess) 290 Mcg Capsule, 290 MCG PO DAILY, (Reported) Paroxetine HCl (Paxil) 40 Mg Tab, 40 MG PO DAILY, (Reported) 60MG TOTAL Paroxetine HCl (Paroxetine HCl) 20 Mg Tablet, 20 MG PO DAILY, (Reported) 60MG TOTAL Phenobarbital (Phenobarbital) 64.8 Mg Tab, 64.8 MG PO BID, (Reported) Phenytoin Sodium Extended (Dilantin) 100 Mg Capsule, 100 MG PO BID, (Reported) Polyethylene Glycol 3350 (Miralax) 119 Gm Powder, 17 GM PO BID, (Reported) Prazosin Hcl (Prazosin HCl) 1 Mg Capsule, 1 MG PO QHS, (Reported) Quetiapine Fumarate (Seroquel) 50 Mg Tab, 50 MG PO BID, (Reported) TAKES WITH 300MG FOR TOTAL OF 350MG Quetiapine Fumarate (Quetiapine Fumarate) 300 Mg Tab, 300 MG PO BID, (Reported) TAKES WITH 50 MG FOR TOTAL OF 350 MG Sennosides (Senna) 8.6 Mg Tablet, 17.2 MG PO QHS, (Reported) Simvastatin (Simvastatin) 20 Mg Tab, 20 MG PO QHS, (Reported) Tamsulosin HCl (Flomax) 0.4 Mg Cap, 0.4 MG PO QHS, (Reported) Trazodone HCl (Trazodone HCl) 100 Mg Tab, 200 MG PO QHS, (Reported) levETIRAcetam (levETIRAcetam) 500 Mg Tablet, 1,500 MG PO BID, (Reported) Scheduled PRN Bisacodyl (Bisacodyl) 10 Mg Supp.rect, 10 MG [place] ASDIRECTED PRN for CONSTIPATION, (Reported) ON DAY 4 OF NO BM Magnesium Hydroxide (Milk of Magnesia) 400 Mg/5 Ml Oral.susp, 30 ML PO ASDIRECTED PRN for CONSTIPATION, (Reported) ON 3RD DAY OF NO BM Mupirocin (Mupirocin) 2 % Oint...g., 1 APPLIC TOP TID PRN for RASH, (Reported) APPLIES TO ABDOMEN AND NECK Sodium Phosphate,Mesa-Dibasic (Fleet Enema) 133 Ml Enema, 1 BRIGID [place] ASDIRECTED PRN for CONSTIPATION, (Reported) ON DAY 5 OF NO BM Allergies Coded Allergies: asenapine (Verified Allergy, Unknown, unknown, 05/29/19) felbamate (Verified Allergy, Unknown, 04/17/20) haloperidol (Verified Allergy, Unknown, 04/17/20) lurasidone (Verified Allergy, Unknown, 04/17/20) TAPE (Verified Adverse Reaction, Mild, rash, 04/17/20) Karen Mark MD Mar 15, 2021 12:35
--- NOTE | 2021-03-17 07:27 | ECGEPIP ---
[facility] - ED Test Date: 2021-03-14 Pat Name: PREM ALMARAZ Department: Room: - Gender: Male Marking Stitcher: GINGER : [id number] Requested By: Tami Nance Order Number: [id number] Reading MD: Tami Nance Measurements Intervals [place] Rate: 71 P: 53 CA: 174 QRS: 26 QRSD: 86 T: 61 QT: 436 QTc: 473 Interpretive Statements Normal sinus rhythm NSTTW abnormalities Electronically Signed on 03-17-2021 7:26:50 EST by Tami Nance
[2021-03-20 05:12] LABS: LAMOTRIGINE (LAMICTAL) 7.1 ug/mL (2.0-20.0); LEVETIRACETAM (KEPPRA) 31.1 ug/mL (10.0-40.0)
== END 2021-03-15 13:41 | disposition home or self-care (01) | DRG 70 ==
LOC: EDBD 08:11 → M ED 08:11 → M ED INP 10:57 → ENRESERV 14:35 → M MSPAV 16:05
PROVIDERS: ADMIT Internal Medicine Nephrology; ATTEND Internal Medicine Nephrology
DX: G93.41 Metabolic encephalopathy (principal); J96.01 Acute respiratory failure with hypoxia; J96.02 Acute respiratory failure with hypercapnia; G91.9 Hydrocephalus, unspecified; F70 Mild intellectual disabilities; G40.909 Epilepsy, unspecified, not intractable, without status epilepticus; Z98.2 Presence of cerebrospinal fluid drainage device; G47.33 Obstructive sleep apnea (adult) (pediatric); N40.0 Benign prostatic hyperplasia without lower urinary tract symptoms; F63.9 Impulse disorder, unspecified; K59.00 Constipation, unspecified; E78.5 Hyperlipidemia, unspecified; Z79.899 Other long term (current) drug therapy; Z88.8 Allergy status to other drugs, medicaments and biological substances; Z86.73 Personal history of transient ischemic attack (TIA), and cerebral infarction without residual deficits

== ENCOUNTER → 2021-03-23 | Outpatient (REF) ==
[~2021-03-23] MED LIST changes: +CLOB10TA PO; +HYDR50TA70 PO
[2021-03-23 11:01] LABS: RSV AMPLIFICATION NEGATIVE (NEGATIVE)
== END ==
LOC: M LAB 08:50
DX: Z11.52 Encounter for screening for COVID-19 (principal)